=== PATIENT | male | born 1940 | race Caucasian/White ===

== ENCOUNTER → 2016-05-03 | Outpatient (CLI) | payer BC ==
[~2016-05-03] MED LIST: AMLO-110 PO; ASPEC81 PO; ASPI81TA28 PO; ATOR-24 PO; CALC-574 PO; CHOL1000 PO; CHOL2000 PO; DOXY100C2 PO; DVN/160 PO; GUAI1TAB68 PO; HYDR5SYP11 PO; LEVO1TAB34 PO; LORA10TA5 PO; LPT/20 PO; MISCTAB26 PO; NRV/10 PO; POTA-74 PO; POTA10CA28 PO; PRED10TA PO; VALS-58 PO; VNTHFA/IN INH
[2016-05-03 10:58] LABS: HEMATOCRIT 45.2 % (42-52); MEAN CELL VOLUME 89.3 fL (80-100); MEAN CORPUSCULAR HEMOGLOBIN 30.8 pg (25-34); MEAN CORPUSCULAR HGB CONC 34.5 g/dl (32-36); MEAN PLATELET VOLUME 12.2 fL (7.4-10.4); PLATELET COUNT 250 K/uL (130-400); RED BLOOD COUNT 5.06 M/uL (4.7-6.1); WHITE BLOOD COUNT 5.96 K/uL (4.8-10.8)
[2016-05-03 11:21] LABS: ALT/SGPT 53 U/L (12-78); AST/SGOT 40 U/L (15-37); BLOOD UREA NITROGEN 14 mg/dl (7-18); CALCIUM 9.2 mg/dl (8.5-10.1); CARBON DIOXIDE 25 mmol/L (21-32); CHLORIDE 110 mmol/L (98-107); CHOLESTEROL 127 mg/dl (0-200); GLUCOSE 106 mg/dl (70-99); SODIUM 144 mmol/L (136-145); URIC ACID 6.1 mg/dl (2.6-7.2)
[2016-05-03 11:26] LABS: ALB/GLOB RATIO 0.9 (0.9-2); ALKALINE PHOSPHATASE 101 U/L (45-117); CHOLESTEROL/HDL RATIO 2.5; HDL CHOLESTEROL 50 mg/dl; LDL CHOLESTEROL CALCULATED 44 mg/dl; TRIGLYCERIDES 163 mg/dl (0-150); VERY LOW DENSITY LIPOPROT CALC 33 mg/dl
[2016-05-03 11:41] LABS: ESTIMATED AVERAGE GLUCOSE 120 mg/dl; HA1C FLAG Normal (Normal)
== END | disposition home or self-care (01) ==
LOC: C.LABBC 07:21
PROVIDERS: ATTEND Internal Medicine
DX: R73.9 Hyperglycemia, unspecified (principal); I10 Essential (primary) hypertension; E78.5 Hyperlipidemia, unspecified

== ENCOUNTER → 2016-07-11 | Outpatient (CLI) | payer BC ==
--- NOTE | 2016-07-11 11:26 | DIAGNOSTIC IMAGING REPORT ---
RIGHT HIP INJECTION UNDER FLUOROSCOPIC GUIDANCE CLINICAL HISTORY: Degenerative joint disease. Steroid injection. PROCEDURE: The risks, benefits, and alternatives to the procedure were discussed with the patient. Written informed consent was obtained. The patient was placed supine on the fluoroscopy table, and a right hip injection was performed under fluoroscopic guidance. The area was prepped and draped in the usual sterile fashion. The skin and soft tissues anesthetized with local 1% lidocaine. The right hip joint was accessed utilizing a 22-gauge needle, and intra-articular positioning was confirmed by injecting a small volume of Optiray 300. Once intra-articular positioning was confirmed, the prescribed dosage of 2 cc of betamethasone and 5 cc of bupivacaine was injected into the joint space. The procedure was well tolerated and without immediate complication. The patient left the department in satisfactory condition. FLUOROSCOPY TIME: 14 seconds. IMPRESSION: Successful steroid injection of the right hip under fluoroscopic guidance. Electronically signed by: Joon Borges M.D. 07/11/2016 11:25 AM Dictated Date/Time: 07/11/2016 11:24 AM
== END | disposition home or self-care (01) ==
LOC: C.RADBC 09:38
PROVIDERS: ATTEND Orthopaedic Surgery
DX: M16.11 Unilateral primary osteoarthritis, right hip (principal)

== ENCOUNTER 2016-08-22 02:41 | Emergency (ER) | payer BC ==
[~2016-08-22] VITALS: Ht 167.6 cm; Wt 92.2 kg
[~2016-08-22 02:41] MED LIST changes: -ASPI81TA28 PO; -CALC-574 PO; -CHOL1000 PO; -CHOL2000 PO; -DOXY100C2 PO; -DVN/160 PO; -GUAI1TAB68 PO; -HYDR5SYP11 PO; -LEVO1TAB34 PO; -LORA10TA5 PO; -LPT/20 PO; -MISCTAB26 PO; -NRV/10 PO; -POTA-74 PO; -VALS-58 PO; -VNTHFA/IN INH
[2016-08-22 02:46] VITALS: TEMP 36.4; Ht 167.6 cm; Wt 92.2 kg
[2016-08-22] MEDS ORDERED: ALBUT/IPRATROP 3MG/0.5MG NEB 3 ML VIAL INH STA (03:00)
[2016-08-22 03:30] LABS: BASO % 0.1 %; BASO ABS # 0.01 K/uL (0-0.2); COMPLETE YES; HEMATOCRIT 43.6 % (42-52); IG% 0.2 %; LYMPH % 7.9 %; LYMPH ABS # 0.81 K/uL (1.2-3.4); MEAN CELL VOLUME 87.4 fL (80-100); MEAN CORPUSCULAR HEMOGLOBIN 30.3 pg (25-34); MEAN CORPUSCULAR HGB CONC 34.6 g/dl (32-36); MEAN PLATELET VOLUME 11.4 fL (7.4-10.4); MONO % 7.4 %; NEUT % 84.4 %; PLATELET COUNT 196 K/uL (130-400); RED BLOOD COUNT 4.99 M/uL (4.7-6.1); WHITE BLOOD COUNT 10.19 K/uL (4.8-10.8)
[2016-08-22] MEDS ORDERED: SODIUM CHLORIDE 0.9% 500ML 500 ML IV STA (03:45)
[2016-08-22 03:51] VITALS: O2SAT 95
[2016-08-22] MEDS ORDERED: OPTIRAY 320 IV PRN (04:00)
[2016-08-22 04:20] LABS: BUN/CREATININE RATIO 23.3 (10-20); CALCIUM 9.1 mg/dl (8.5-10.1); CREATININE 0.92 mg/dl (0.60-1.40)
[2016-08-22] MEDS ORDERED: LPT/20 PO (04:26)
[2016-08-22] MEDS ORDERED: POTA-74 PO (04:26)
[2016-08-22] MEDS ORDERED: NRV/10 PO (04:26)
[2016-08-22] MEDS ORDERED: VALS-58 PO (04:26)
[2016-08-22] MEDS ORDERED: LORA10TA5 PO (04:27)
[2016-08-22] MEDS ORDERED: ASPI81TA28 PO (04:27)
[2016-08-22] MEDS ORDERED: CHOL2000 PO (04:29)
[2016-08-22] MEDS ORDERED: MISCTAB26 PO (04:29)
[2016-08-22] MEDS ORDERED: CALC-574 PO (04:29)
[2016-08-22] MEDS ORDERED: LIDOCAINE HCL 2% VISC SOLN 20 ML UDC MT STA (04:57)
--- NOTE | 2016-08-22 05:38 | EMERGENCY ROOM VISIT NOTE ---
History First contact with patient: 02:51 Chief Complaint: RESPIRATORY PROBLEMS Stated Complaint: HARD TO BREATHE History of Present Illness The patient is a 76 year old male who presents to the Emergency Room with complaints of cough and shortness of breath for the past few days that is progressively getting worse. Patient recently was on a trip to [place] and was on a cruise ship to [place] and flew back here. He saw his family care doctor yesterday and was placed on prednisone. symptoms have been getting worse so he presents to the ER for further evaluation and treatment. Patient denies chest pain, fevers, abdominal pain, leg pain, history of PE or DVT, history of heart disease, sore throat, congestion. He is tolerating by mouth fluids and food. Review of Systems See HPI for pertinent positives & negatives. A total of 10 systems reviewed and were otherwise negative. Past Medical/Surgical History HTN Social History Smoking Status: Former Smoker Drug Use: none Marital Status: Housing Status: lives with family Occupation Status: retired Current/Historical Medications Scheduled Amlodipine Besylate (Amlodipine Besylate), 10 MG PO DAILY Aspirin (Aspirin Ec), 81 MG PO DAILY Atorvastatin (Atorvastatin Calcium), 20 MG PO DAILY Calcium Carbonate-Cholecalcife (Calcium 600+D3 600-400 mg-Unit), 1 TAB PO DAILY Cholecalciferol (Vitamin D3), 1 CAP PO DAILY Loratadine (Claritin), 10 MG PO DAILY Misc Natural Products (Ginkgo Biloba), 1 TAB PO DAILY Potassium Chloride (Potassium Chloride Er), 10 MEQ PO BID Prednisone (Prednisone), PO UD Valsartan (Valsartan), 160 MG PO DAILY Allergies Coded Allergies: Levothyroxine (Unverified Allergy, Intermediate, HIVES, 08/22/16) states always became septic Physical Exam Vital Signs Date Time Temp Pulse Resp B/P Pulse Ox O2 Delivery O2 Flow Rate FiO2 08/22/16 05:17 87 18 140/78 94 Room Air 08/22/16 03:53 85 18 153/71 95 Room Air 08/22/16 03:51 95 Room Air 08/22/16 03:51 95 Room Air 08/22/16 03:24 Room Air 08/22/16 03:18 87 08/22/16 02:46 36.4 95 19 154/88 94 Room Air Physical Exam VITALS: Vitals are noted on the nurse's note and reviewed by myself. Vital signs stable. GENERAL: Pleasant male, in no acute distress, nondiaphoretic, well-developed well-nourished. SKIN: The skin was without rashes, erythema, edema, or bruising. There is no tenting of the skin. Capillary reflex less than 2 seconds. HEAD: Normocephalic atraumatic. EARS: External auditory canals clear, tympanic membranes pearly ventura without erythema or effusion bilaterally. EYES: Pupils equal round and reactive to light and accommodation. Conjunctivae without injection, sclerae without icterus. Extraocular movements intact. NOSE: Patent, turbinates without inflammation or discharge. MOUTH: Mucous membranes moist. Pharynx without erythema or exudate. Uvula midline. Airway patent. Tongue does not deviate. NECK: Supple without nuchal rigidity. No lymphadenopathy. No thyromegaly. Cervical spine is nontender. No JVD. HEART: Regular rate and rhythm LUNGS: Clear to auscultation bilaterally without wheezes, rales or rhonchi. No dullness to percussion. No retractions or accessory muscle use. ABDOMEN: Positive bowel sounds x 4. Normal tympanic percussion. Soft, nontender, without masses or organomegaly. Laura sign negative. No guarding or rebound tenderness. MUSCULOSKELETAL: No muscle atrophy, erythema, noted. Bilateral trace pitting edema up to the ankles NEURO: Patient was alert and oriented to person place and time. Normal sensation to light and sharp touch. No focal neurological deficits. Medical Decision & Procedures Laboratory Results 08/22/16 03:19 Red Blood Count 4.99, Mean Corpuscular Volume 87.4, Mean Corpuscular Hemoglobin 30.3, Mean Corpuscular Hemoglobin Concent 34.6, Mean Platelet Volume 11.4, Neutrophils (%) (Auto) 84.4, Lymphocytes (%) (Auto) 7.9, Monocytes (%) (Auto) 7.4, Eosinophils (%) (Auto) 0.0, Basophils (%) (Auto) 0.1, Neutrophils # (Auto) 8.60, Lymphocytes # (Auto) 0.81, Monocytes # (Auto) 0.75, Eosinophils # (Auto) 0.00, Basophils # (Auto) 0.01 08/22/16 03:19 Test 08/22/16 03:19 08/22/16 03:24 White Blood Count 10.19 K/uL (4.8-10.8) Red Blood Count 4.99 M/uL (4.7-6.1) Hemoglobin 15.1 g/dL (14.0-18.0) Hematocrit 43.6 % (42-52) Mean Corpuscular Volume 87.4 fL (80-100) Mean Corpuscular Hemoglobin 30.3 pg (25-34) Mean Corpuscular Hemoglobin Concent 34.6 g/dl (32-36) Platelet Count 196 K/uL (130-400) Mean Platelet Volume 11.4 fL (7.4-10.4) Neutrophils (%) (Auto) 84.4 % Lymphocytes (%) (Auto) 7.9 % Monocytes (%) (Auto) 7.4 % Eosinophils (%) (Auto) 0.0 % Basophils (%) (Auto) 0.1 % Neutrophils # (Auto) 8.60 K/uL (1.4-6.5) Lymphocytes # (Auto) 0.81 K/uL (1.2-3.4) Monocytes # (Auto) 0.75 K/uL (0.11-0.59) Eosinophils # (Auto) 0.00 K/uL (0-0.5) Basophils # (Auto) 0.01 K/uL (0-0.2) RDW Standard Deviation 43.7 fL (36.4-46.3) RDW Coefficient of Variation 13.7 % (11.5-14.5) Immature Granulocyte % (Auto) 0.2 % Immature Granulocyte # (Auto) 0.02 K/uL (0.00-0.02) Anion Gap 9.0 mmol/L (3-11) Est Creatinine Clear Calc Drug Dose 73.7 ml/min Estimated GFR () 94.0 Estimated GFR (Non- 81.1 BUN/Creatinine Ratio 23.3 (10-20) Calcium Level 9.1 mg/dl (8.5-10.1) Total Bilirubin 0.5 mg/dl (0.2-1) Direct Bilirubin 0.1 mg/dl (0-0.2) Aspartate Amino Transf (AST/SGOT) 25 U/L (15-37) Alanine Aminotransferase (ALT/SGPT) 34 U/L (12-78) Alkaline Phosphatase 91 U/L (45-117) Total Protein 7.3 gm/dl (6.4-8.2) Albumin 3.5 gm/dl (3.4-5.0) Bedside D-Dimer > 450 ng/mlFEU (0-450) Bedside Troponin I 0.000 ng/ml (0-0.045) Medications Administered Medications (Trade) Dose Ordered Sig/Jesse Route Start Time Stop Time Status Last Admin Dose Admin Albuterol/ Ipratropium 3 ml 3 ml NOW STAT INH 08/22/16 03:00 08/22/16 03:02 DC 08/22/16 03:47 3 ML Sodium Chloride (Nss 500ml) 500 ml @ 999 mls/hr Q31M STAT IV 08/22/16 03:45 08/22/16 04:15 DC 08/22/16 03:49 999 MLS/HR Lidocaine HCl (Viscous Lidocaine 2% Soln) 10 ml NOW STAT MT 08/22/16 04:57 08/22/16 04:58 DC 08/22/16 05:04 10 ML ED Course Prior records/ancillary studies reviewed. Triage Nursing notes reviewed. Additional history obtained from the family. The patient's history was concerning for respiratory difficulties. Differential diagnosis: Etiologies such as infections, reactive airway disease, pneumonia, pneumothorax , COPD, CHF, cardiac ischemia, pulmonary embolism, musculoskeletal, gastrointestinal, as well as others were entertained. Physical examination: As above. ER treatment provided: Duo neb, doxycycline On reassessment the patient felt better. Diagnostic interpretation by me: The electrocardiogram was normal sinus, occasional PVC, Q-wave in lead 3, T wave inversion in V3, rate of 85. EKG compared to prior EKG with no acute changes noted besides the PVCs. Impression normal sinus rhythm with occasional PVC and Q-wave in the inferior leads interpreted by myself The labs revealed elevated d-dimer. Negative troponin Imaging studies: Chest x-ray with no acute consolidation or pneumothorax interpreted by myself CTA CHEST: No PE. No aortic aneurysm or dissection. Atherosclerotic calcifications including coronary arteries. Patchy airspace disease in the left lower lobe may represent pneumonia. Small and borderline enlarged mediastinal and left hilar nodes. Some of the left hilar nodes with small calcification may be granulomatous Radiologist: Grant Calvin M.D. Study ready at 05:04 and initial results transmitted This appears to be consistent with pneumonia. Patient had no PE on CTA. He was started on antibiotics. He was advised to take medicines as directed and follow-up family care in a few days or here in the ER sooner for fevers, difficulty breathing, chest pains, worsening signs or symptoms or as needed. He was not hypoxic. No white count. He is well-appearing. I felt it was reasonable to discharge him home.. By the evaluation outlined above emergent etiologies such as CHF, cardiac ischemia, pulmonary embolism, reactive airway disease, pneumothorax, musculoskeletal, serious bacterial infections, as well as others were deemed relatively unlikely. The pt informed about the findings as listed above. All questions were answered and pleased with the treatment. Return instructions were outlined and the patient was discharged in stable condition. Outpatient prescription management: Doxycycline Referral: The patient was referred back to their primary care physician for follow-up in 2 to 3 days for a recheck of the current condition. case reviewed with my Attending Medical Decision As above Impression Primary Impression: Left lower lobe pneumonia Departure Information Dispostion Home / Self-Care Condition GOOD Referrals Travis Mcnulty D.O. (PCP) Patient Instructions My [facility] Additional Instructions Doxycycline 100mg: Take one pill twice daily for seven days for your infection. Take with food, but avoid dairy. Avoid prolonged sun exposure since this medication makes you temporarily more susceptible to sunburns. All antibiotics can cause diarrhea. If this occurs and you feel worse or it does not resolve in 1-2 days follow up with your doctor or return to the Emergency Department as this could be signs of serious underlying problems. Any medication can cause an allergic reaction, stop the pills immediately and return to the ER for rash, hives, breathing difficulties, or swelling. Albuterol Inhaler: Take 2 puffs four times daily for seven days, then as needed. Acetaminophen(Tylenol) may be used for fever or pain. Use 1000mg every six hours as needed. Avoid using more than 3000mg in a 24 hour period. AND/OR Ibuprofen(Motrin, Advil) may be used for fever or pain. Use 600mg every six hours as needed. Take with food. Avoid using more than 2400mg in a 24 hour period. Do not use 2400mg per day for more than three consecutive days without physician direction. Prolonged inappropriate use can lead to stomach upset or ulcers. Hycodan cough syrup: use one teaspoon every six hours only as needed for severe cough. It is best for use at night since it will cause sedation. This is a narcotic medication. Avoid alcohol, operating machinery or dangerous equipment, working on ladders or roofs, DRIVING, or situations where being under the influence may be dangerous. It is recommended to use an over-the- counter stool softener such as Colace, 100mg twice daily while taking this medication to avoid constipation. Controlling your fever with Tylenol and Ibuprofen as above will make you feel better. Rest and drink plenty of fluids. Avoid strenuous activity until your symptoms resolve and your breathing returns to normal. Continue current medications. Return to the ER for chest pain, difficulty breathing, persistent fevers, vomiting, worsening of your condition, or as needed. Follow-up with family care in 2-3 days. Problem Qualifiers Primary Impression: Left lower lobe pneumonia Pneumonia type: due to unspecified organism Qualified Codes: J18.1 - Lobar pneumonia, unspecified organism
[2016-08-22] MEDS ORDERED: DOXY100C2 PO (05:39)
[2016-08-22] MEDS ORDERED: HYDR5SYP11 PO (05:39)
[2016-08-22] MEDS ORDERED: DOXYCYCLINE HYCLATE 100 MG CAP PO ONE (05:45)
[2016-08-22] MEDS ORDERED: HYCODAN 60ML BOTTLE HOMEPACK PO ONE (05:45)
[2016-08-22] MEDS ORDERED: ALBUTEROL HFA 8 GM INHALER INH STA (05:48)
[2016-08-22 06:04] VITALS: BP 141/86; PULSE 92; O2SAT 94
--- NOTE | 2016-08-22 07:27 | DIAGNOSTIC IMAGING REPORT ---
CHEST ONE VIEW PORTABLE HISTORY: Atypical CHEST PAIN COMPARISON: Chest 12/30/2014. FINDINGS: The lungs are clear. Cardiac silhouette is normal in size. No pleural effusions. No pneumothorax. IMPRESSION: No acute process. Electronically signed by: Asaf Eason M.D. 08/22/2016 7:26 AM Dictated Date/Time: 08/22/2016 7:25 AM
--- NOTE | 2016-08-22 07:53 | DIAGNOSTIC IMAGING REPORT ---
CHEST CTA for PULMONARY ARTERIES CT DOSE: 518.65 mGy.cm HISTORY: Short of breath. Cough. Elevated d-dimer. Recent travel. TECHNIQUE: Multiaxial CT images of the chest were performed following the intravenous administration of contrast to evaluate the pulmonary arteries. Maximal intensity projection images were also obtained. COMPARISON STUDY: Chest 08/22/2016. FINDINGS: No evidence for an aortic dissection. No evidence for pulmonary embolus. No pleural or pericardial effusions. A few calcified left hilar lymph nodes. No mediastinal or hilar lymphadenopathy. Small hiatus hernia. The liver, spleen, and adrenal glands are unremarkable. No fractures within the visualized osseous structures. The central airways are patent. No pneumothorax. Patchy groundglass airspace opacities within the left lower lobe. IMPRESSION: 1. No evidence for pulmonary embolus. 2. Patchy groundglass airspace opacities within the left lower lobe consistent with a pneumonia. Recommend follow-up to ensure resolution 3. Small hiatus hernia. Electronically signed by: Asaf Eason M.D. 08/22/2016 7:51 AM Dictated Date/Time: 08/22/2016 7:45 AM
[2016-08-23] MEDS ORDERED: DVN/160 PO (19:26)
[2016-08-23] MEDS ORDERED: VNTHFA/IN INH (19:26)
[2016-08-23] MEDS ORDERED: CHOL1000 PO (20:29)
[2016-08-25] MEDS ORDERED: LEVO1TAB34 PO ×2 (12:05→12:16)
[2016-08-25] MEDS ORDERED: GUAI1TAB68 PO (12:05)
== END 2016-08-22 06:04 | disposition home or self-care (01) ==
LOC: C.EDB 02:42 → C.EDA 06:04
DX: J18.1 Lobar pneumonia, unspecified organism (principal); Z87.891 Personal history of nicotine dependence; Z79.899 Other long term (current) drug therapy; Z79.52 Long term (current) use of systemic steroids

== ENCOUNTER 2016-08-23 18:03 | Inpatient (IN) | payer BC, OTHER ==
[~2016-08-23] VITALS: Ht 167.6 cm; Wt 89.1 kg
[~2016-08-23 18:03] MED LIST changes: -AMLO-110 PO; -ASPEC81 PO; +ASPI81TA28 PO; -ATOR-24 PO; +CALC-574 PO; +CHOL2000 PO; +DOXY100C2 PO; +HYDR5SYP11 PO; +LORA10TA5 PO; +LPT/20 PO; +MISCTAB26 PO; +NRV/10 PO; +POTA-74 PO; -POTA10CA28 PO; +VALS-58 PO
[2016-08-23 18:55] LABS: BASO % 0.2 %; BASO ABS # 0.02 K/uL (0-0.2); COMPLETE YES; EOS % 1.1 %; HEMATOCRIT 45.5 % (42-52); IG% 0.3 %; LYMPH % 8.6 %; LYMPH ABS # 0.85 K/uL (1.2-3.4); MEAN CELL VOLUME 88.3 fL (80-100); MEAN CORPUSCULAR HEMOGLOBIN 29.9 pg (25-34); MEAN CORPUSCULAR HGB CONC 33.8 g/dl (32-36); MEAN PLATELET VOLUME 11.6 fL (7.4-10.4); MONO % 4.9 %; NEUT % 84.9 %; PLATELET COUNT 218 K/uL (130-400); RED BLOOD COUNT 5.15 M/uL (4.7-6.1); WHITE BLOOD COUNT 9.88 K/uL (4.8-10.8)
--- NOTE | 2016-08-23 18:55 | DIAGNOSTIC IMAGING REPORT ---
CHEST ONE VIEW PORTABLE HISTORY: Sepsis COMPARISON: Chest CTA 08/22/2016. FINDINGS: Patchy densities within the left lung base persist. There are linear densities within the right lung base suggesting atelectasis. No evidence for pulmonary edema. The heart is mildly enlarged. This remains unchanged. No pneumothorax. IMPRESSION: No change in the left lower lobe hazy density suggesting a pneumonia. One month chest x-ray follow-up can be performed to ensure resolution. Electronically signed by: Asaf Eason M.D. 08/23/2016 6:54 PM Dictated Date/Time: 08/23/2016 6:53 PM
[2016-08-23 19:05] LABS: PARTIAL THROMBOPLASTIN RATIO 0.9; PROTHROMBIN TIME (PATIENT) 10.5 SECONDS (9.0-12.0)
[2016-08-23 19:21] LABS: ALT/SGPT 34 U/L (12-78); AST/SGOT 30 U/L (15-37); BLOOD UREA NITROGEN 17 mg/dl (7-18); BUN/CREATININE RATIO 15.8 (10-20); CALCIUM 8.5 mg/dl (8.5-10.1); CARBON DIOXIDE 25 mmol/L (21-32); CHLORIDE 106 mmol/L (98-107); GLUCOSE 150 mg/dl (70-99); POTASSIUM 3.5 mmol/L (3.5-5.1); SODIUM 140 mmol/L (136-145)
[2016-08-23 19:25] LABS: ALKALINE PHOSPHATASE 89 U/L (45-117)
[2016-08-23] MEDS ORDERED: DVN/160 PO (19:26)
[2016-08-23] MEDS ORDERED: VNTHFA/IN INH (19:26)
[2016-08-23] MEDS ORDERED: CEFTRIAXONE SOD INJ 1 GM ADDVIAL IV STA (19:38)
--- NOTE | 2016-08-23 19:51 | EMERGENCY ROOM VISIT NOTE ---
History Report prepared by [employer]cci: Rhona Britton Under the Supervision of: Dr. Theo Marie M.D. First contact with patient: 18:12 Chief Complaint: RESPIRATORY PROBLEMS Stated Complaint: BREATHING PROBLEMS HERE YESTERDAY Nursing Triage Summary: Pt was seen here yesterday for pneumonia and was sent home. Pt states "I can't breath, lightheaded, nauseous, cough." Pt was recently out of the country. History of Present Illness The patient is a 76 year old male who presents to the Emergency Room with complaints of persistent SOB starting this morning. He was in the ED yesterday for SOB. He was diagnosed with pneumonia and sent home with antibiotics. He has taken 3 doses so far. He was feeling well when he left. He started having SOB again today along with cough, nausea, lightheadedness, and dry mouth. His cough is mostly non productive, but he did cough up some sputum which was darker than before. He denies any rash, fever, or urinary symptoms. He denies any pain or swelling in the legs. He has a history of hypertension and low potassium. He takes potassium supplements. He was recently on a cruise to [place], [place] [facility], and [facility]. He reports there were many people coughing on the ship. Source of History: patient Onset: this morning Position: other (global) Quality: other (SOB) Timing: other (persistent) Associated Symptoms: + chest pain, + cough, + nausea, No fevers, No rash, No urinary symptoms Note: Pt reports lightheadedness and dry mouth. Pt denies pain or swelling in the legs. Review of Systems See HPI for pertinent positives & negatives. A total of 10 systems reviewed and were otherwise negative. Past Medical & Surgical Medical Problems: (1) Hypertension (2) Kidney stones Family History Cancer Parkinson's disease Social History Smoking Status: Never Smoker Alcohol Use: occasionally Drug Use: none Marital Status: Housing Status: lives with significant other Occupation Status: retired Current/Historical Medications Scheduled Albuterol Hfa (Ventolin Hfa), 2 PUFFS INH QID Amlodipine Besylate (Amlodipine Besylate), 10 MG PO DAILY Aspirin (Aspirin Ec), 81 MG PO DAILY Atorvastatin (Atorvastatin Calcium), 20 MG PO DAILY Calcium Carbonate-Cholecalcife (Calcium 600+D3 600-400 mg-Unit), 1 TAB PO DAILY Cholecalciferol (Vitamin D3), 1 CAP PO DAILY Doxycycline Hyclate (Vibramycin), 100 MG PO BID Loratadine (Claritin), 10 MG PO DAILY Misc Natural Products (Ginkgo Biloba), 1 TAB PO DAILY Potassium Chloride (Potassium Chloride Er), 10 MEQ PO BID Prednisone (Prednisone), PO UD Valsartan (Diovan), 160 MG PO DAILY Scheduled PRN Hydrocodone W/ Homatropine (Hycodan 5/1.5MG 5 Ml), 5-10 ML PO Q4H PRN for Cough Allergies Coded Allergies: Levothyroxine (Unverified Allergy, Intermediate, HIVES, 08/22/16) states always became septic Physical Exam Vital Signs Date Time Temp Pulse Resp B/P Pulse Ox O2 Delivery O2 Flow Rate FiO2 08/23/16 19:42 81 126/72 92 Room Air 08/23/16 19:38 95 Room Air 08/23/16 18:11 95 Room Air 08/23/16 18:08 36.5 88 18 149/84 95 Room Air Physical Exam Constitutional: Vital signs reviewed. Eyes: Pupils are equal round reactive to light. Conjunctiva are noninjected. ENT: Pharynx is clear without erythema or exudate. Mucous membranes are moist. Neck supple without meningeal signs. Respiratory: Clear to auscultation bilaterally. Breath sounds are equal bilaterally. Cardiovascular: Regular rate and rhythm. No rubs or gallops. GI: Soft, nondistended and nontender. Bowel sounds are present. Musculoskeletal: No peripheral edema. No lower extremity tenderness. Integumentary: No cyanosis. Neurological: The patient is awake and alert. No focal deficits. Psychiatric: Normal affect. Medical Decision & Procedures ER Provider Diagnostic Interpretation: X-ray results as stated below per interpretation by me and the radiologist: CHEST ONE VIEW PORTABLE HISTORY: Sepsis COMPARISON: Chest CTA 08/22/2016. FINDINGS: Patchy densities within the left lung base persist. There are linear densities within the right lung base suggesting atelectasis. No evidence for pulmonary edema. The heart is mildly enlarged. This remains unchanged. No pneumothorax. IMPRESSION: No change in the left lower lobe hazy density suggesting a pneumonia. One month chest x-ray follow-up can be performed to ensure resolution. Electronically signed by: Asaf Eason M.D. 08/23/2016 6:54 PM Dictated Date/Time: 08/23/2016 6:53 PM Laboratory Results 08/23/16 18:30 Red Blood Count 5.15, Mean Corpuscular Volume 88.3, Mean Corpuscular Hemoglobin 29.9, Mean Corpuscular Hemoglobin Concent 33.8, Mean Platelet Volume 11.6, Neutrophils (%) (Auto) 84.9, Lymphocytes (%) (Auto) 8.6, Monocytes (%) (Auto) 4.9, Eosinophils (%) (Auto) 1.1, Basophils (%) (Auto) 0.2, Neutrophils # (Auto) 8.39, Lymphocytes # (Auto) 0.85, Monocytes # (Auto) 0.48, Eosinophils # (Auto) 0.11, Basophils # (Auto) 0.02 08/23/16 18:30 Test 08/23/16 18:25 08/23/16 18:30 08/23/16 18:45 White Blood Count 9.88 K/uL (4.8-10.8) Red Blood Count 5.15 M/uL (4.7-6.1) Hemoglobin 15.4 g/dL (14.0-18.0) Hematocrit 45.5 % (42-52) Mean Corpuscular Volume 88.3 fL (80-100) Mean Corpuscular Hemoglobin 29.9 pg (25-34) Mean Corpuscular Hemoglobin Concent 33.8 g/dl (32-36) Platelet Count 218 K/uL (130-400) Mean Platelet Volume 11.6 fL (7.4-10.4) Neutrophils (%) (Auto) 84.9 % Lymphocytes (%) (Auto) 8.6 % Monocytes (%) (Auto) 4.9 % Eosinophils (%) (Auto) 1.1 % Basophils (%) (Auto) 0.2 % Neutrophils # (Auto) 8.39 K/uL (1.4-6.5) Lymphocytes # (Auto) 0.85 K/uL (1.2-3.4) Monocytes # (Auto) 0.48 K/uL (0.11-0.59) Eosinophils # (Auto) 0.11 K/uL (0-0.5) Basophils # (Auto) 0.02 K/uL (0-0.2) RDW Standard Deviation 45.7 fL (36.4-46.3) RDW Coefficient of Variation 14.1 % (11.5-14.5) Immature Granulocyte % (Auto) 0.3 % Immature Granulocyte # (Auto) 0.03 K/uL (0.00-0.02) Prothrombin Time 10.5 SECONDS (9.0-12.0) Prothromb Time International Ratio 1.0 (0.9-1.1) Activated Partial Thromboplast Time 23.0 SECONDS (21.0-31.0) Partial Thromboplastin Ratio 0.9 Anion Gap 9.0 mmol/L (3-11) Est Creatinine Clear Calc Drug Dose 61.9 ml/min Estimated GFR () 75.7 Estimated GFR (Non- 65.3 BUN/Creatinine Ratio 15.8 (10-20) Calcium Level 8.5 mg/dl (8.5-10.1) Total Bilirubin 0.8 mg/dl (0.2-1) Aspartate Amino Transf (AST/SGOT) 30 U/L (15-37) Alanine Aminotransferase (ALT/SGPT) 34 U/L (12-78) Alkaline Phosphatase 89 U/L (45-117) Troponin I < 0.015 ng/ml (0-0.045) Total Protein 7.4 gm/dl (6.4-8.2) Albumin 3.7 gm/dl (3.4-5.0) Globulin 3.7 gm/dl (2.5-4.0) Albumin/Globulin Ratio 1.0 (0.9-2) Bedside Lactic Acid Venous 1.78 mmol/L (0.90-1.70) Laboratory results as reviewed by me. ECG Indication: SOB/dyspnea Rate (beats per minute): 81 Rhythm: normal sinus Findings: no ectopy, other (ST and T wave changes in the anterior and inferior leads, no ST elevations) Comparison ECG Date: 22-Aug-2016 Change: no significant change Change: Similar findings yesterday as well as 26-Jun-2010. ED Course 1814: The patient was evaluated in room B10. A complete history and physical exam was performed. 1930: I reevaluated the patient. He mentions that he came here because he felt like something was sitting on his chest and he was unable to breathe. I discussed the results and treatment plan with him. He verbalized understanding and agreement. He will be evaluated for further management. 1937: Rocephin Inj 1 gm IV. 1938: I spoke with KEYONA Mcneal hospitalist service. We discussed the patient and his results. The patient will be further evaluated by her. Medical Decision This is a 76-year-old male who presents with shortness of breath. Differential diagnosis includes sepsis, pneumonia, unstable angina, PR, pulmonary embolism. I did perform a limited focused review of portions of the patient's old chart on the electronic medical record. The patient was here yesterday for difficulty breathing and diagnosed with left lower lobe pneumonia. He had a negative CTA for PE. He was discharged home with doxycycline and Hycodan. I did evaluate the patient as noted above. IV access was established. The patient was placed on a continuous air sampling and monitoring. I did order and personally review the patient's 12-lead EKG and chest x-ray as described above. He has a persistent left lower lobe pneumonia. Blood cultures were obtained. I did order and review the patient's blood work as noted in the electronic medical record. He has a left shift and an elevated lactic acid. PCR influenza test is pending. I did reassess the patient. He states the main reason he came in today was because he was feeling really short of breath and felt like something was sitting on his chest earlier this afternoon. He no longer has the sensation. He denies any prior history of heart attack but states that when he was 22 he had an injury to his heart and has had an abnormal EKG since. Given his worsening symptoms he will hospitalized for further evaluation, repeat cardiac enzymes and IV antibiotics. I did treat the patient with ceftriaxone IV. I did discuss the case with the hospitalist and manager case. Consults Time Called: 1936 Consulting Physician: KEYONA Mcneal hospitalist Returned Call: 1938 I spoke with her. We discussed the patient and his results. The patient will be further evaluated by her. Impression Primary Impression: Pneumonia involving left lung Additional Impression: Precordial chest pain Scribe Attestation The scribe's documentation has been prepared under my direct and personally reviewed by me in its entirety. I confirm that the note above accurately reflects all work, treatment, procedures, and medical decision making performed by me. Departure Information Dispostion Being Evaluated By Hospitalist Referrals Travis Mcnulty D.O. (PCP) Patient Instructions My [facility] Problem Qualifiers Primary Impression: Pneumonia involving left lung Pneumonia type: due to unspecified organism Lung location: lower lobe of lung Qualified Codes: J18.1 - Lobar pneumonia, unspecified organism
[2016-08-23] MEDS ORDERED: ONDANSETRON INJ 2 MG/ML 2 ML VIAL IV PRN (20:15)
[2016-08-23] MEDS ORDERED: NITROGLYCERIN 0.4 MG SL PER TAB CHARGE SL PRN (20:15)
[2016-08-23] MEDS ORDERED: ACETAMINOPHEN 325 MG TAB PO PRN (20:15)
[2016-08-23] MEDS ORDERED: CHOL1000 PO (20:29)
[2016-08-23] MEDS ORDERED: ALBUT/IPRATROP 3MG/0.5MG NEB 3 ML VIAL INH PRN (20:30)
--- NOTE | 2016-08-23 20:49 | History and Physical ---
History & Physical Date & Time of Service: August 23, 2016 at 20:36 Chief Complaint: Shortness of Breath, Chest Tightness Primary Care Physician: Travis Mcnulty D.O. History of Present Illness 76 year old male who presents to the ER with shortness of breath and chest tightness. Patient reports he was away on a cruise vacation for over 3 weeks and returned home last week. He reports that towards the end of his vacation he started to develop a mild non productive cough. He reports other people in his group as well as his were sick as well with similar symptoms. His symptoms progressively got worse and he was seen by his PCP on 08/20 and given a prednisone taper. He continued to feel poorly and was seen in the ER yesterday and diagnosed with pneumonia. CT was also obtained that was negative for pulmonary embolism. He was discharged on albuterol inhaler, doxycycline, and Hycodan cough syrup. He reports he initially felt better however this afternoon the chest tightness and heaviness returned. He also felt short of breath, diaphoretic, and nauseous. These episodes occurred twice with the more severe one occurring second. He notes taking the Hycodan right before these episodes occurred. The symptoms also occurred at rest and resolved on their own. He denies fever and chills. Cough remains mostly non productive. He denies abdominal pain, vomiting, or diarrhea. No urinary symptoms. In the ER, vitals are stable. Patient is saturating well on room air. Initial troponin is negative and EKG does not show any acute ST changes. He was given a dose of Rocephin. Past Medical/Surgical History Medical Problems: (1) Allergic rhinitis Status: Chronic (2) Dyslipidemia Status: Chronic (3) GERD (gastroesophageal reflux disease) Status: Chronic (4) HTN (hypertension) Status: Chronic (5) Kidney stones Status: Resolved Family History Parkinson's disease FATHER Social History Smoking Status: Never Smoker Alcohol Use: occasionally Marital Status: Housing status: lives with family Immunizations History of Influenza Vaccine: Yes Influenza Vaccine Date: Dec 28, 2015 History of Tetanus Vaccine?: Yes Tetanus Immunization Date: Dec 29, 2013 History of Pneumococcal: Yes Pneumococcal Date: Nov 08, 2015 Multi-Drug Resistant Organisms History of MDRO: No Allergies Coded Allergies: Levothyroxine (Unverified Allergy, Intermediate, HIVES, 08/22/16) states always became septic Home Medications Scheduled Albuterol Hfa (Ventolin Hfa), 2 PUFFS INH QID Amlodipine Besylate (Amlodipine Besylate), 10 MG PO DAILY Aspirin (Aspirin Ec), 81 MG PO DAILY Atorvastatin (Atorvastatin Calcium), 20 MG PO DAILY Calcium Carbonate-Cholecalcife (Calcium 600+D3 600-400 mg-Unit), 1 TAB PO DAILY Cholecalciferol (Vitamin D3), 1 TAB PO DAILY Doxycycline Hyclate (Vibramycin), 100 MG PO BID Loratadine (Claritin), 10 MG PO DAILY Misc Natural Products (Ginkgo Biloba), 1 TAB PO DAILY Potassium Chloride (Potassium Chloride Er), 10 MEQ PO BID Prednisone (Prednisone), PO UD Valsartan (Diovan), 160 MG PO HS Scheduled PRN Hydrocodone W/ Homatropine (Hycodan 5/1.5MG 5 Ml), 5-10 ML PO Q4H PRN for Cough Review of Systems ROS per HPI, all other systems reviewed and negative Physical Exam Vital Signs Date Time Temp Pulse Resp B/P Pulse Ox O2 Delivery O2 Flow Rate FiO2 08/23/16 20:31 77 20 154/81 92 Room Air 08/23/16 19:42 81 126/72 92 Room Air 08/23/16 19:38 95 Room Air 08/23/16 18:11 95 Room Air 08/23/16 18:08 36.5 88 18 149/84 95 Room Air General Appearance: no apparent distress Head: normocephalic Eyes: normal inspection ENT: hearing grossly normal Neck: supple, no JVD Respiratory/Chest: no respiratory distress, + rales (left lung base, right middle and lower lung castillo) Cardiovascular: regular rate, rhythm, no edema, normal peripheral pulses Abdomen/GI: normal bowel sounds, non tender, soft Extremities/Musculoskelatal: normal inspection, no calf tenderness Neurologic/Psych: no motor/sensory deficits, alert, normal mood/affect, oriented x 3 Skin: normal color, warm/dry Diagnostics Laboratory Results Results Past 24 Hours Test 08/23/16 18:25 08/23/16 18:30 08/23/16 18:45 Range/Units White Blood Count 9.88 4.8-10.8 K/uL Red Blood Count 5.15 4.7-6.1 M/uL Hemoglobin 15.4 14.0-18.0 g/dL Hematocrit 45.5 42-52 % Mean Corpuscular Volume 88.3 80-100 fL Mean Corpuscular Hemoglobin 29.9 25-34 pg Mean Corpuscular Hemoglobin Concent 33.8 32-36 g/dl Platelet Count 218 130-400 K/uL Mean Platelet Volume 11.6 7.4-10.4 fL Neutrophils (%) (Auto) 84.9 % Lymphocytes (%) (Auto) 8.6 % Monocytes (%) (Auto) 4.9 % Eosinophils (%) (Auto) 1.1 % Basophils (%) (Auto) 0.2 % Neutrophils # (Auto) 8.39 1.4-6.5 K/uL Lymphocytes # (Auto) 0.85 1.2-3.4 K/uL Monocytes # (Auto) 0.48 0.11-0.59 K/uL Eosinophils # (Auto) 0.11 0-0.5 K/uL Basophils # (Auto) 0.02 0-0.2 K/uL RDW Standard Deviation 45.7 36.4-46.3 fL RDW Coefficient of Variation 14.1 11.5-14.5 % Immature Granulocyte % (Auto) 0.3 % Immature Granulocyte # (Auto) 0.03 0.00-0.02 K/uL Prothrombin Time 10.5 9.0-12.0 SECONDS Prothromb Time International Ratio 1.0 0.9-1.1 Activated Partial Thromboplast Time 23.0 21.0-31.0 SECONDS Partial Thromboplastin Ratio 0.9 Sodium Level 140 136-145 mmol/L Potassium Level 3.5 3.5-5.1 mmol/L Chloride Level 106 98-107 mmol/L Carbon Dioxide Level 25 21-32 mmol/L Anion Gap 9.0 3-11 mmol/L Blood Urea Nitrogen 17 7-18 mg/dl Creatinine 1.10 0.60-1.40 mg/dl Est Creatinine Clear Calc Drug Dose 61.9 ml/min Estimated GFR () 75.7 Estimated GFR (Non- 65.3 BUN/Creatinine Ratio 15.8 10-20 Random Glucose 150 70-99 mg/dl Calcium Level 8.5 8.5-10.1 mg/dl Total Bilirubin 0.8 0.2-1 mg/dl Aspartate Amino Transf (AST/SGOT) 30 15-37 U/L Alanine Aminotransferase (ALT/SGPT) 34 12-78 U/L Alkaline Phosphatase 89 45-117 U/L Troponin I < 0.015 0-0.045 ng/ml Total Protein 7.4 6.4-8.2 gm/dl Albumin 3.7 3.4-5.0 gm/dl Globulin 3.7 2.5-4.0 gm/dl Albumin/Globulin Ratio 1.0 0.9-2 Bedside Lactic Acid Venous 1.78 0.90-1.70 mmol/L Microbiology Results 08/23/16 Blood Culture, Received Pending 08/23/16 Blood Culture, Received Pending Diagnostic Radiology CXR IMPRESSION: No change in the left lower lobe hazy density suggesting a pneumonia. One month chest x-ray follow-up can be performed to ensure resolution. Impression Assessment and Plan CHEST PAIN - admit to tele - patient presenting with chest tightness / heaviness, shortness of breath, and diaphoresis occurring at rest and after taking Hycodan cough syrup; was in the ER yesterday and diagnosed with pneumonia - symptoms atypical for ACS; risk factors: HTN, HLD - initial troponin negative, EKG unchanged from prior - stress echo 2010 negative for ischemia - suspect symptoms are due to pneumonia - continue to cycle cardiac enzymes, check resting echo; if negative, consider outpatient stress test - ASA, statin CAP - diagnosed yesterday and was placed on doxycycline - was placed on Prednisone taper by PCP on 08/19, will continue with to complete course - s/p Rocephin in the ER today, will continue with and add azithromycin - add Mucinex, flutter valve, PRN nebs - no signs of sepsis, saturating well on room air - noted patient was recently on a cruise and other people were sick with similar symptoms - check MRSA nasal swab, sputum culture, urine legionella HTN - BP controlled, continue amlodipine and valsartan HLD - continue statin GERD - continue PPI DVT PROPHYLAXIS - SQ Lovenox DISPO - The patient will be placed as observation status for now until further work up is complete. Agree with above h and [id number] presents who was diagnosed with pneumonia and started on doxycycline yesterday comes back with chest tightness, sob and not feeling well. Currently afebrile and hemodynamically stable. No nausea or abdominal pain. p/e Ge not in distress Cvs s1 and s2 heard no murmurs Rs cta b/l no added sounds Abd benign Brand Communications Manager non focal Ext no edema a/p chest tightness sob mostly from pneumonia will f/u serial CE and echo CAP started on Rocephin and azithromycin will monitor VTE Prophylaxis VTE Risk Assessment Done? Y/N: Yes Risk Level: Moderate
[2016-08-23] MEDS ORDERED: IV FLUIDS COMPLETED PRN (21:00)
[2016-08-23 21:06] LABS: INFLUENZA A PCR Neg for Influ A (NEG); INFLUENZA B PCR Neg for Influ B (NEG)
[2016-08-23] MEDS ORDERED: POTASSIUM CHLORIDE 10 MEQ TABCR PO SCH (22:00)
[2016-08-23 22:15] VITALS: BP 145/78; PULSE 84; TEMP 36.6; O2SAT 92; Ht 167.6 cm; Wt 89.1 kg
[2016-08-23] MEDS: GUAIFENESIN 600 MG TABCR PO SCH (22:34)
[2016-08-23] MEDS: POTASSIUM CHLORIDE 10 MEQ TABCR PO SCH (22:34)
[2016-08-23] MEDS: VALSARTAN 80 MG TAB PO SCH (22:34)
[2016-08-23] MEDS: AZITHROMYCIN IV 500 MG in DEXTROSE 5% 250ML 250 ML IV SCH (22:35)
[2016-08-23 23:49] VITALS: BP 148/74; PULSE 87; TEMP 36.9; O2SAT 92
[2016-08-23 23:59] VITALS: O2SAT 92
[2016-08-24] VITALS (10 sets, daily range): BP systolic 136–158; BP diastolic 61–83; PULSE 69–93; TEMP 36.5–36.9; O2SAT 91–94
[2016-08-24] MEDS ORDERED: NURSING VERBAL MED ORDER ONE ×3 (00:15→09:30)
[2016-08-24] MEDS ORDERED: RANITIDINE HCL 150 MG TAB PO PRN (00:30)
[2016-08-24 07:08] LABS: HEMATOCRIT 42.1 % (42-52); MEAN CELL VOLUME 87.9 fL (80-100); MEAN CORPUSCULAR HEMOGLOBIN 30.3 pg (25-34); MEAN CORPUSCULAR HGB CONC 34.4 g/dl (32-36); MEAN PLATELET VOLUME 11.2 fL (7.4-10.4); PLATELET COUNT 193 K/uL (130-400); RED BLOOD COUNT 4.79 M/uL (4.7-6.1); WHITE BLOOD COUNT 7.06 K/uL (4.8-10.8)
[2016-08-24 07:38] LABS: BLOOD UREA NITROGEN 14 mg/dl (7-18); BUN/CREATININE RATIO 16.3 (10-20); CALCIUM 8.4 mg/dl (8.5-10.1); CARBON DIOXIDE 27 mmol/L (21-32); CHLORIDE 110 mmol/L (98-107); CREATININE 0.86 mg/dl (0.60-1.40); GLUCOSE 89 mg/dl (70-99); POTASSIUM 3.8 mmol/L (3.5-5.1); SODIUM 144 mmol/L (136-145)
[2016-08-24] MEDS: ENOXAPARIN 40 MG/0.4 ML SYR SC SCH (08:00)
[2016-08-24] MEDS: POTASSIUM CHLORIDE 10 MEQ TABCR PO SCH ×2 (08:24→16:39)
[2016-08-24] MEDS: ASPIRIN 81 MG ECTAB PO SCH (08:25)
[2016-08-24] MEDS: ATORVASTATIN 20 MG TAB PO SCH (08:25)
[2016-08-24] MEDS: LORATADINE 10 MG TAB PO SCH (08:25)
[2016-08-24] MEDS: GUAIFENESIN 600 MG TABCR PO SCH ×2 (08:26→20:44)
[2016-08-24] MEDS: AMLODIPINE BESYLATE 5 MG TAB PO SCH (08:27)
[2016-08-24] MEDS: RANITIDINE HCL 150 MG TAB PO SCH ×2 (08:28→20:44)
[2016-08-24] MEDS ORDERED: CHOLECALCIFEROL 1000 INTER.UNIT TAB PO SCH ×2 (09:00→21:00)
[2016-08-24] MEDS ORDERED: CALCIUM 600MG + VIT D 400 IU TAB PO SCH ×2 (09:00→21:00)
--- NOTE | 2016-08-24 16:05 | ECHOCARDIOGRAM REPORT ---
*NOTICE TO RECEIVING REPUBLICAN AGENCY This information is strictly Confidential and protected under [place] law. [place] law prohibits you from making any further disclosure of this information unless further disclosure is expressly permitted by the written consent of the person to whom it pertains or is authorized by law. A general authorization for the release of medical or other information is not sufficient for this purpose. Hospital accepts no responsibility if the information is made available to any other person, INCLUDING THE PATIENT. Interpretation Summary * Name: SANDI MORGAN Study Date: 08/24/2016 01:54 PM BP: 158/75 mmHg * Patient Location: C.2T\S\S243\S\1 HR: 93 * : 1940 (M/d/yyyy) Gender: Male Height: 66 in * Age: 76 yrs Ethnicity: CA Weight: 204 lb * Ordering Physician: Sandra Resendiz * Referring Physician: Self, Referred * Performed By: Lorena Carnes RDCS * * Reason For Study: CHEST PAIN * BSA: 2.0 m2 * -- Conclusions -- * The left ventricle is normal in size. * Left ventricular systolic function is normal. * The left ventricular wall motion is normal. * Ejection Fraction = 60-65%. * The right ventricular systolic function is normal. * The left atrial size is normal. * Right atrial size is normal. * No significant valvular pathology. Procedure Details * A complete two-dimensional transthoracic echocardiogram was performed (2D, M-mode, Doppler and color flow Doppler). Left Ventricle * The left ventricle is normal in size. * There is normal left ventricular wall thickness. * Ejection Fraction = 60-65%. * Left ventricular systolic function is normal. * The left ventricular wall motion is normal. Right Ventricle * The right ventricle is normal size. * The right ventricular systolic function is normal. Atria * The left atrial size is normal. * Right atrial size is normal. Mitral Valve * The mitral valve is normal in structure and function. Tricuspid Valve * The tricuspid valve is normal in structure and function. Aortic Valve * The aortic valve is not well visualized. * No hemodynamically significant valvular aortic stenosis. * There is no significant aortic regurgitation. Pulmonic Valve * The pulmonic valve is not well visualized. Great Vessels * The aortic root and proximal ascending aorta are normal sized. Pericardium/Pleural * There is no pericardial effusion. MMode 2D Measurements and Calculations IVSd 1.1 cm IVSs 1.5 cm LVIDd 4.2 cm LVIDs 2.7 cm LVPWd 1.3 cm LVPWs 1.5 cm IVS/LVPW 0.85 FS 35.9 % EDV(Teich) 77.8 ml ESV(Teich) 26.5 ml EF(Teich) 65.9 % EDV(cubed) 73.1 ml ESV(cubed) 19.2 ml EF(cubed) 73.7 % % IVS thick 42.9 % % LVPW thick 19.3 % LV mass(C)d 171.7 grams LV mass(C)dI 85.1 grams/m\S\2 LV mass(C)s 141.8 grams LV mass(C)sI 70.3 grams/m\S\2 SV(Teich) 51.3 ml SI(Teich) 25.4 ml/m\S\2 SV(cubed) 53.9 ml SI(cubed) 26.7 ml/m\S\2 Ao root diam 2.7 cm Ao root area 5.9 cm\S\2 LA dimension 3.9 cm LA/Ao 1.4 LVAd ap4 25.0 cm\S\2 LVLd ap4 8.0 cm EDV(MOD-sp4) 62.9 ml EDV(sp4-el) 66.0 ml LVAs ap4 13.2 cm\S\2 LVLs ap4 6.3 cm ESV(MOD-sp4) 25.1 ml ESV(sp4-el) 23.4 ml EF(MOD-sp4) 60.0 % EF(sp4-el) 64.5 % LVAd ap2 21.7 cm\S\2 LVLd ap2 7.3 cm EDV(MOD-sp2) 55.0 ml EDV(sp2-el) 55.0 ml LVAs ap2 12.1 cm\S\2 LVLs ap2 6.4 cm ESV(MOD-sp2) 19.1 ml ESV(sp2-el) 19.4 ml EF(MOD-sp2) 65.4 % EF(sp2-el) 64.6 % LVLd %diff -10.04 % EDV(MOD-bp) 61.9 ml LVLs %diff 1.4 % ESV(MOD-bp) 22.0 ml EF(MOD-bp) 64.4 % SV(MOD-sp4) 37.8 ml SI(MOD-sp4) 18.7 ml/m\S\2 SV(MOD-sp2) 36.0 ml SI(MOD-sp2) 17.8 ml/m\S\2 SV(MOD-bp) 39.9 ml SI(MOD-bp) 19.8 ml/m\S\2 SV(sp4-el) 42.6 ml SI(sp4-el) 21.1 ml/m\S\2 SV(sp2-el) 35.5 ml SI(sp2-el) 17.6 ml/m\S\2 Doppler Measurements and Calculations MV E max paris 83.9 cm/sec MV A max paris 66.0 cm/sec MV E/A 1.3 MV dec time 0.20 sec Ao V2 max 128.8 cm/sec Ao max PG 6.6 mmHg Ao max PG (full) 3.9 mmHg LV V1 max PG 2.7 mmHg LV V1 max 82.5 cm/sec
--- NOTE | 2016-08-24 17:17 | Progress Note ---
Medicine Progress Note Date & Time of Visit: August 24, 2016 at 13:45. Subjective Pt was seen and examined Sitting at the edge of the bed with no distress Pt said that he keeps having a dry cough He said that after each coughing spell, his chest feels tight Denies any palpitation, chest pain, and dizziness Objective Last 8 Hrs Date Time Temp Pulse Resp B/P Pulse Ox O2 Delivery O2 Flow Rate FiO2 08/24/16 12:00 Room Air 08/24/16 11:47 36.6 93 18 158/75 93 Room Air 08/24/16 10:26 90 18 94 Room Air 08/24/16 08:00 Room Air 08/24/16 07:26 36.9 69 20 147/83 93 Room Air Physical Exam: General- No acute distress Head- atraumatic Eyes- PERRL, EOMI ENT- oropharynx clear Neck- supple, no JVD Lungs- + rales, no wheezing Heart- regular rhythm; no murmur Abdomen- normal bowel sounds, soft, nontender Extremities- no calf tenderness Neuro- alert, oriented x 3; PERRL, EOMI; no facial palsy Skin- warm & dry Laboratory Results: Last 24 Hours Test 08/23/16 18:25 08/23/16 18:30 08/23/16 18:45 08/23/16 22:09 Influenza Type A (RT-PCR) Neg for Influ A Influenza Type B (RT-PCR) Neg for Influ B White Blood Count 9.88 K/uL Red Blood Count 5.15 M/uL Hemoglobin 15.4 g/dL Hematocrit 45.5 % Mean Corpuscular Volume 88.3 fL Mean Corpuscular Hemoglobin 29.9 pg Mean Corpuscular Hemoglobin Concent 33.8 g/dl Platelet Count 218 K/uL Mean Platelet Volume 11.6 fL Neutrophils (%) (Auto) 84.9 % Lymphocytes (%) (Auto) 8.6 % Monocytes (%) (Auto) 4.9 % Eosinophils (%) (Auto) 1.1 % Basophils (%) (Auto) 0.2 % Neutrophils # (Auto) 8.39 K/uL Lymphocytes # (Auto) 0.85 K/uL Monocytes # (Auto) 0.48 K/uL Eosinophils # (Auto) 0.11 K/uL Basophils # (Auto) 0.02 K/uL RDW Standard Deviation 45.7 fL RDW Coefficient of Variation 14.1 % Immature Granulocyte % (Auto) 0.3 % Immature Granulocyte # (Auto) 0.03 K/uL Prothrombin Time 10.5 SECONDS Prothromb Time International Ratio 1.0 Activated Partial Thromboplast Time 23.0 SECONDS Partial Thromboplastin Ratio 0.9 Sodium Level 140 mmol/L Potassium Level 3.5 mmol/L Chloride Level 106 mmol/L Carbon Dioxide Level 25 mmol/L Anion Gap 9.0 mmol/L Blood Urea Nitrogen 17 mg/dl Creatinine 1.10 mg/dl Est Creatinine Clear Calc Drug Dose 61.9 ml/min Estimated GFR () 75.7 Estimated GFR (Non- 65.3 BUN/Creatinine Ratio 15.8 Random Glucose 150 mg/dl Calcium Level 8.5 mg/dl Total Bilirubin 0.8 mg/dl Aspartate Amino Transf (AST/SGOT) 30 U/L Alanine Aminotransferase (ALT/SGPT) 34 U/L Alkaline Phosphatase 89 U/L Troponin I < 0.015 ng/ml Total Protein 7.4 gm/dl Albumin 3.7 gm/dl Globulin 3.7 gm/dl Albumin/Globulin Ratio 1.0 Bedside Lactic Acid Venous 1.78 mmol/L Test 08/24/16 00:27 08/24/16 06:30 08/24/16 06:52 Creatine Kinase MB 1.2 ng/ml 0.9 ng/ml Creatine Kinase MB Ratio Troponin I < 0.015 ng/ml < 0.015 ng/ml White Blood Count 7.06 K/uL Red Blood Count 4.79 M/uL Hemoglobin 14.5 g/dL Hematocrit 42.1 % Mean Corpuscular Volume 87.9 fL Mean Corpuscular Hemoglobin 30.3 pg Mean Corpuscular Hemoglobin Concent 34.4 g/dl RDW Standard Deviation 44.7 fL RDW Coefficient of Variation 14.0 % Platelet Count 193 K/uL Mean Platelet Volume 11.2 fL Sodium Level 144 mmol/L Potassium Level 3.8 mmol/L Chloride Level 110 mmol/L Carbon Dioxide Level 27 mmol/L Anion Gap 7.0 mmol/L Blood Urea Nitrogen 14 mg/dl Creatinine 0.86 mg/dl Est Creatinine Clear Calc Drug Dose 77.6 ml/min Estimated GFR () 98.3 Estimated GFR (Non- 84.8 BUN/Creatinine Ratio 16.3 Random Glucose 89 mg/dl Calcium Level 8.4 mg/dl Date/Time Source Procedure Growth Status 08/23/16 18:33 Blood Blood Culture Pending Received 08/23/16 18:30 Blood Blood Culture Pending Received 08/23/16 22:25 Nasal MRSA DNA Surveillance Screen - Final Specimen Negative for MRSA by DNA Probe Complete 08/24/16 00:00 Sputum Expectorated Sputum Gram Stain Pending Received 08/24/16 00:00 Sputum Expectorated Sputum Sputum Culture Pending Received Assessment & Plan CHEST TIGHTNESS - presenting with chest tightness / heaviness, shortness of breath, and diaphoresis occurring at rest and after taking Hycodan cough syrup - atypical features, but need to R/O ACS - All 3 sets of troponin negative - EKG showed no ischemic changes - Symptoms mostly due to respiratory due to Pneumonia and the dry cough - Echo pending - Continue ASA, statin - Continue monitor on tele. CAP - cxr showed no change in the left lower lobe hazy density suggesting a pneumonia - Was starting on doxycycline on 08/22 by the ER - was placed on Prednisone taper by PCP on 08/19, will continue with to complete course - Continue Rocephin and Zithromax - Continue Mucinex, flutter valve, PRN nebs - Influenza test negative - Urine legionella pending HTN -Continue amlodipine and valsartan -Stable HLD - continue statin GERD - continue PPI DVT PROPHYLAXIS - SQ Lovenox Current Inpatient Medications: Current Inpatient Medications Medications (Trade) Dose Ordered Sig/Jesse Route Start Time Stop Time Status Last Admin Dose Admin Enoxaparin Sodium (Lovenox Inj) 40 mg Q24H SC 08/24/16 08:00 09/23/16 07:59 Acetaminophen (Tylenol Tab) 650 mg Q4H PRN PO 08/23/16 20:15 09/22/16 20:14 Ondansetron HCl (Zofran Inj) 4 mg Q6H PRN IV 08/23/16 20:15 09/22/16 20:14 Nitroglycerin 0.4 mg 0.4 mg UD PRN SL 08/23/16 20:15 09/22/16 20:14 Ceftriaxone Sodium 1 gm/ Dextrose 50 ml @ 100 mls/hr Q24H IV 08/24/16 18:00 08/31/16 17:59 Azithromycin/ Dextrose (Zithromax IV/D5 250ml) 255 ml @ 125 mls/hr Q24H IV 08/23/16 22:00 08/30/16 21:59 08/23/16 22:35 125 MLS/HR Guaifenesin (Mucinex Contr Rel Tab) 600 mg Q12 PO 08/23/16 21:00 09/22/16 20:59 08/24/16 08:26 600 MG Aspirin (Ecotrin Tab) 81 mg DAILY PO 08/24/16 09:00 09/23/16 08:59 08/24/16 08:25 81 MG Atorvastatin Calcium (Lipitor Tab) 20 mg DAILY PO 08/24/16 09:00 09/23/16 08:59 08/24/16 08:25 20 MG Loratadine (Claritin Tab) 10 mg DAILY PO 08/24/16 09:00 09/23/16 08:59 08/24/16 08:25 10 MG Valsartan (Diovan Tab) 160 mg HS PO 08/23/16 21:00 09/22/16 20:59 08/23/16 22:34 160 MG Amlodipine Besylate (Norvasc Tab) 10 mg QAM PO 08/24/16 09:00 09/23/16 08:59 08/24/16 08:27 10 MG Albuterol/ Ipratropium (Duoneb) 3 ml Q4R PRN INH 08/23/16 20:30 09/22/16 20:29 08/24/16 10:25 3 ML Miscellaneous (Iv Fluids Completed) 1 ea PRN PRN N/A 08/23/16 21:00 08/23/17 20:59 Ranitidine HCl (zANTac TAB) 150 mg BID PO 08/24/16 09:00 09/23/16 08:59 Potassium Chloride (Klor-Con M10) 10 meq BIDM PO 08/23/16 22:00 09/22/16 21:59 08/24/16 08:24 10 MEQ Ranitidine HCl (zANTac TAB) 150 mg DAILY PRN PO 08/24/16 00:30 09/23/16 00:29 08/24/16 00:48 150 MG Calcium/Vitamin D (Caltrate Plus Tab) 1 tab DAILY@2100 PO 5/13/17 21:00 09/23/16 20:59 Prednisone (PredniSONE TAB) 40 mg Taper DAILY@1600 PO 08/24/16 16:00 08/31/16 15:59 Cholecalciferol (Vitamin D Tab) 1,000 inter.unit HS PO 08/24/16 21:00 09/23/16 20:59
[2016-08-24] MEDS ORDERED: CEFTRIAXONE SOD INJ 1 GM in DEXTROSE 5% ADD-VANTAGE 50ML 50 ML IV SCH (18:00)
[2016-08-24] MEDS: VALSARTAN 80 MG TAB PO SCH (20:45)
[2016-08-24] MEDS: AZITHROMYCIN IV 500 MG in DEXTROSE 5% 250ML 250 ML IV SCH (20:48)
[2016-08-25 03:26] VITALS: BP 125/67; PULSE 73; TEMP 36.4; O2SAT 94
[2016-08-25 04:00] VITALS: O2SAT 92
[2016-08-25] MEDS: ENOXAPARIN 40 MG/0.4 ML SYR SC SCH (08:00)
[2016-08-25] MEDS: LORATADINE 10 MG TAB PO SCH (08:38)
[2016-08-25] MEDS: POTASSIUM CHLORIDE 10 MEQ TABCR PO SCH (08:38)
[2016-08-25] MEDS: ASPIRIN 81 MG ECTAB PO SCH (08:39)
[2016-08-25] MEDS: ATORVASTATIN 20 MG TAB PO SCH (08:39)
[2016-08-25] MEDS: AMLODIPINE BESYLATE 5 MG TAB PO SCH (08:39)
[2016-08-25] MEDS: GUAIFENESIN 600 MG TABCR PO SCH (08:39)
[2016-08-25] MEDS: RANITIDINE HCL 150 MG TAB PO SCH (08:39)
[2016-08-25 08:47] VITALS: BP 163/78; PULSE 74; TEMP 36.6; O2SAT 93
--- NOTE | 2016-08-25 11:53 | Progress Note ---
Medicine Progress Note Date & Time of Visit: August 25, 2016 at 11:43. Subjective Pt was seen and examined Sitting in bed with no distress Pt said that his cough improved he said that he feels much better Denies any chest pain, palpitation, chest tightness and SOB Objective Last 8 Hrs Date Time Temp Pulse Resp B/P Pulse Ox O2 Delivery O2 Flow Rate FiO2 08/25/16 08:47 36.6 74 20 163/78 93 Room Air 08/25/16 08:00 Room Air 08/25/16 04:00 92 Room Air Physical Exam: General- No acute distress Head- atraumatic Eyes- PERRL, EOMI ENT- oropharynx clear Neck- supple, no JVD Lungs- no wheezing Heart- regular rhythm; no murmur Abdomen- normal bowel sounds, soft, nontender Extremities- no calf tenderness Neuro- alert, oriented x 3; PERRL, EOMI; no facial palsy Skin- warm & dry Assessment & Plan CHEST TIGHTNESS - presenting with chest tightness / heaviness, shortness of breath, and diaphoresis occurring at rest and after taking Hycodan cough syrup - atypical features, but need to R/O ACS - All 3 sets of troponin negative - EKG showed no ischemic changes - Symptoms mostly due to respiratory due to Pneumonia and the dry cough - Echo pending - Continue ASA, statin - Resolved - Echo showed * The left ventricle is normal in size. * Left ventricular systolic function is normal. * The left ventricular wall motion is normal. * Ejection Fraction = 60-65%. * The right ventricular systolic function is normal. * The left atrial size is normal. * Right atrial size is normal. * No significant valvular pathology. CAP - cxr showed no change in the left lower lobe hazy density suggesting a pneumonia - Was starting on doxycycline on 08/22 by the ER - was placed on Prednisone taper by PCP on 08/19, will continue with to complete course - Continue Rocephin and Zithromax - Will discharged on Levaquin since he was starting on Doxy and developed GI side effects (Nausea) - Continue Mucinex, flutter valve, PRN nebs - Influenza test negative - Urine legionella pending - Sputum cx grew moderate normal jo-ann MODERATE HTN -Continue amlodipine and valsartan -Stable HLD - continue statin GERD - continue PPI DVT PROPHYLAXIS - SQ Lovenox Current Inpatient Medications: Current Inpatient Medications Medications (Trade) Dose Ordered Sig/Jesse Route Start Time Stop Time Status Last Admin Dose Admin Enoxaparin Sodium (Lovenox Inj) 40 mg Q24H SC 08/24/16 08:00 09/23/16 07:59 Acetaminophen (Tylenol Tab) 650 mg Q4H PRN PO 08/23/16 20:15 09/22/16 20:14 Ondansetron HCl (Zofran Inj) 4 mg Q6H PRN IV 08/23/16 20:15 09/22/16 20:14 Nitroglycerin 0.4 mg 0.4 mg UD PRN SL 08/23/16 20:15 09/22/16 20:14 Ceftriaxone Sodium 1 gm/ Dextrose 50 ml @ 100 mls/hr Q24H IV 08/24/16 18:00 08/31/16 17:59 08/24/16 17:31 100 MLS/HR Azithromycin/ Dextrose (Zithromax IV/D5 250ml) 255 ml @ 125 mls/hr Q24H IV 08/23/16 22:00 08/30/16 21:59 08/24/16 20:48 125 MLS/HR Guaifenesin (Mucinex Contr Rel Tab) 600 mg Q12 PO 08/23/16 21:00 09/22/16 20:59 08/25/16 08:39 600 MG Aspirin (Ecotrin Tab) 81 mg DAILY PO 08/24/16 09:00 09/23/16 08:59 08/25/16 08:39 81 MG Atorvastatin Calcium (Lipitor Tab) 20 mg DAILY PO 08/24/16 09:00 09/23/16 08:59 08/25/16 08:39 20 MG Loratadine (Claritin Tab) 10 mg DAILY PO 08/24/16 09:00 09/23/16 08:59 08/25/16 08:38 10 MG Valsartan (Diovan Tab) 160 mg HS PO 08/23/16 21:00 09/22/16 20:59 08/24/16 20:45 160 MG Amlodipine Besylate (Norvasc Tab) 10 mg QAM PO 08/24/16 09:00 09/23/16 08:59 08/25/16 08:39 10 MG Albuterol/ Ipratropium (Duoneb) 3 ml Q4R PRN INH 5/12/17 20:30 09/22/16 20:29 08/24/16 10:25 3 ML Miscellaneous (Iv Fluids Completed) 1 ea PRN PRN N/A 08/23/16 21:00 08/23/17 20:59 Ranitidine HCl (zANTac TAB) 150 mg BID PO 08/24/16 09:00 09/23/16 08:59 08/25/16 08:39 150 MG Potassium Chloride (Klor-Con M10) 10 meq BIDM PO 08/23/16 22:00 09/22/16 21:59 08/25/16 08:38 10 MEQ Ranitidine HCl (zANTac TAB) 150 mg DAILY PRN PO 08/24/16 00:30 09/23/16 00:29 08/24/16 00:48 150 MG Calcium/Vitamin D (Caltrate Plus Tab) 1 tab DAILY@2100 PO 08/24/16 21:00 09/23/16 20:59 08/24/16 20:44 1 TAB Prednisone (PredniSONE TAB) 40 mg Taper DAILY@1600 PO 08/24/16 16:00 08/31/16 15:59 08/24/16 16:40 40 MG Cholecalciferol (Vitamin D Tab) 1,000 inter.unit HS PO 08/24/16 21:00 09/23/16 20:59 08/24/16 20:44 1,000 INTER.UNIT
[2016-08-25] MEDS ORDERED: GUAI1TAB68 PO (12:05)
[2016-08-25] MEDS ORDERED: LEVO1TAB34 PO ×2 (12:05→12:16)
--- NOTE | 2016-08-25 12:13 | Discharge Instructions ---
Discharge Instructions Date of Service August 25, 2016. Admission Reason for Admission: Chest Pain Discharge Discharge Diagnosis / Problem: Pneumonia, Chest Tightness, hypertension Discharge Goals Goal(s): Decrease discomfort, Improve function, Improve disease control, Diagnostic testing Activity Recommendations Activity Limitations: resume your previous activity (as tolerated) . Instructions / Follow-Up Instructions / Follow-Up Dr. Mcnulty's office will call you tomorrow to schedule a follow up appointment Finish the steroid taper Complete the antibiotic course Current Hospital Diet Patient's current hospital diet: AHA Diet (Heart Healthy) Discharge Diet Recommended Diet: AHA Diet (Heart Healthy) Pending Studies Studies pending at discharge: yes List of pending studies: Urine for legionella Medical Emergencies . Who to Call and When: Medical Emergencies: If at any time you feel your situation is an emergency, please call 911 immediately. . Non-Emergent Contact Non-Emergency issues call your: Primary Care Provider Call Non-Emergent contact if: you have a fever, you have any medication questions . . "Provider Documentation" section prepared by Grey Olivarez. . VTE Core Measure Inpt VTE Proph given/why not?: Enoxaparin (Lovenox)SQ
[2016-08-25 12:18] VITALS: BP 163/78; PULSE 74; TEMP 36.6; O2SAT 93
[2016-08-25 12:24] VITALS: BP 153/84; PULSE 81; TEMP 36.6; O2SAT 93
[2016-08-25] MEDS ORDERED: LEVOFLOXACIN 500 MG TAB PO ONE (13:00)
--- NOTE | 2016-08-25 23:44 | Discharge Summary ---
Discharge Summary Date of Service August 25, 2016. Discharge Summary Admission Date: August 24, 2016 at 17:22 Discharge Date: August 25, 2016 Discharge Disposition: Home Principal Diagnosis: Community Acquired Pneumonia Secondary Diagnoses/Problems: Pneumonia Chest Tightness Hypertension Procedures: CHEST ONE VIEW PORTABLE HISTORY: Sepsis COMPARISON: Chest CTA 08/22/2016. FINDINGS: Patchy densities within the left lung base persist. There are linear densities within the right lung base suggesting atelectasis. No evidence for pulmonary edema. The heart is mildly enlarged. This remains unchanged. No pneumothorax. IMPRESSION: No change in the left lower lobe hazy density suggesting a pneumonia. One month chest x-ray follow-up can be performed to ensure resolution. Electronically signed by: Asaf Eason M.D. 08/23/2016 6:54 PM Dictated Date/Time: 08/23/2016 6:53 PM ECHO Interpretation Summary * Name: SANDI MORGAN Study Date: 08/24/2016 01:54 PM BP: 158/75 mmHg * Patient Location: [facility]\\\\[id number]\\[id number]\\[id number] HR: 93 * : 1940 (M/d/yyyy) Gender: Male Height: 66 in * Age: 76 yrs Ethnicity: [place] Weight: 204 lb * Ordering Physician: Sandra Resendiz * Referring Physician: Self, Referred * Performed By: Lorena Carnes RDCS * * Reason For Study: CHEST PAIN * BSA: 2.0 m2 * -- Conclusions -- * The left ventricle is normal in size. * Left ventricular systolic function is normal. * The left ventricular wall motion is normal. * Ejection Fraction = 60-65%. * The right ventricular systolic function is normal. * The left atrial size is normal. * Right atrial size is normal. * No significant valvular pathology. Procedure Details * A complete two-dimensional transthoracic echocardiogram was performed (2D, M- mode, Doppler and color flow Doppler). Left Ventricle * The left ventricle is normal in size. * There is normal left ventricular wall thickness. * Ejection Fraction = 60-65%. * Left ventricular systolic function is normal. * The left ventricular wall motion is normal. Right Ventricle * The right ventricle is normal size. * The right ventricular systolic function is normal. Atria * The left atrial size is normal. * Right atrial size is normal. Mitral Valve * The mitral valve is normal in structure and function. Tricuspid Valve * The tricuspid valve is normal in structure and function. Aortic Valve * The aortic valve is not well visualized. * No hemodynamically significant valvular aortic stenosis. * There is no significant aortic regurgitation. Pulmonic Valve * The pulmonic valve is not well visualized. Great Vessels * The aortic root and proximal ascending aorta are normal sized. Pericardium/Pleural * There is no pericardial effusion. Medication Reconciliation New Medications: Guaifenesin (Organ-I Nr) 200 Mg Tab 1 TAB PO Q6 PRN for Cough for 5 Days, #20 Levofloxacin (Levaquin) 500 Mg Tab 500 MG PO DAILY for 5 Days, #5 TAB Continued Medications: Albuterol Hfa (Ventolin Hfa) 200 Puffs/02026 Mcg Aers 2 PUFFS INH QID, #1 INHALER Amlodipine Besylate (Amlodipine Besylate) 10 Mg Tab 10 MG PO DAILY Aspirin (Aspirin Ec) 81 Mg Tab 81 MG PO DAILY Atorvastatin (Atorvastatin Calcium) 20 Mg Tab 20 MG PO DAILY Calcium Carbonate-Cholecalcife (Calcium 600+D3 600-400 mg-Unit) 1 Tab Tab 1 TAB PO DAILY Cholecalciferol (Vitamin D3) 1,000 Unit Tab 1 TAB PO DAILY for 30 Days, #30 TAB 5 Refills Loratadine (Claritin) 10 Mg Tab 10 MG PO DAILY, TAB Misc Natural Products (Ginkgo Biloba) 1 Tab Tab 1 TAB PO DAILY Potassium Chloride (Potassium Chloride Er) 10 Meq Tab 10 MEQ PO BID Prednisone (Prednisone) 10 Mg Tab PO UD, #30 4 PILLS FOR 1 DAY,3 FOR 2 days,2 FOR 2 days AND 1 PILL FOR 2 DAYS THEN STOP Valsartan (Diovan) 160 Mg Tab 160 MG PO HS Discontinued Medications: Doxycycline Hyclate (Vibramycin) 100 Mg Cap 100 MG PO BID for 7 Days, #14 CAP Hydrocodone W/ Homatropine (Hycodan 5/1.5MG 5 Ml) 1 Syp Syp 5-10 ML PO Q4H PRN for Cough, #200 ML Admission Information HPI (per Admitting provider): 76 year old male who presents to the ER with shortness of breath and chest tightness. Patient reports he was away on a cruise vacation for over 3 weeks and returned home last week. He reports that towards the end of his vacation he started to develop a mild non productive cough. He reports other people in his group as well as his were sick as well with similar symptoms. His symptoms progressively got worse and he was seen by his PCP on 08/20 and given a prednisone taper. He continued to feel poorly and was seen in the ER yesterday and diagnosed with pneumonia. CT was also obtained that was negative for pulmonary embolism. He was discharged on albuterol inhaler, doxycycline, and Hycodan cough syrup. He reports he initially felt better however this afternoon the chest tightness and heaviness returned. He also felt short of breath, diaphoretic, and nauseous. These episodes occurred twice with the more severe one occurring second. He notes taking the Hycodan right before these episodes occurred. The symptoms also occurred at rest and resolved on their own. He denies fever and chills. Cough remains mostly non productive. He denies abdominal pain, vomiting, or diarrhea. No urinary symptoms. In the ER, vitals are stable. Patient is saturating well on room air. Initial troponin is negative and EKG does not show any acute ST changes. He was given a dose of Rocephin. Physical Exam (per Admitting): General Appearance: no apparent distress Head: normocephalic Eyes: normal inspection ENT: hearing grossly normal Neck: supple, no JVD Respiratory/Chest: no respiratory distress, + rales (left lung base, right middle and lower lung castillo) Cardiovascular: regular rate, rhythm, no edema, normal peripheral pulses Abdomen/GI: normal bowel sounds, non tender, soft Extremities/Musculoskelatal: normal inspection, no calf tenderness Neurologic/Psych: no motor/sensory deficits, alert, normal mood/affect, oriented x 3 Skin: normal color, warm/dry Hospital Course CHEST TIGHTNESS - presenting with chest tightness / heaviness, shortness of breath, and diaphoresis occurring at rest and after taking Hycodan cough syrup - atypical features, but need to R/O ACS - All 3 sets of troponin negative - EKG showed no ischemic changes - Symptoms mostly due to respiratory due to Pneumonia and the dry cough - Echo pending - Continue ASA, statin - Resolved - Echo showed * The left ventricle is normal in size. * Left ventricular systolic function is normal. * The left ventricular wall motion is normal. * Ejection Fraction = 60-65%. * The right ventricular systolic function is normal. * The left atrial size is normal. * Right atrial size is normal. * No significant valvular pathology. CAP - cxr showed no change in the left lower lobe hazy density suggesting a pneumonia - Was starting on doxycycline on 08/22 by the ER - was placed on Prednisone taper by PCP on 08/19, will continue with to complete course - Continue Rocephin and Zithromax - Will discharged on Levaquin since he was starting on Doxy and developed GI side effects (Nausea) - Continue Mucinex, flutter valve, PRN nebs - Influenza test negative - Urine legionella pending - Sputum cx grew moderate normal jo-ann MODERATE HTN -Continue amlodipine and valsartan -Stable HLD - continue statin GERD - continue PPI DVT PROPHYLAXIS - SQ Lovenox Total time spent on discharge = 35 MINUTES This includes examination of the patient, discharge planning, medication reconciliation, and communication with other providers. Discharge Instructions Admission Reason for Admission: Chest Pain Discharge Discharge Diagnosis / Problem: Pneumonia, Chest Tightness, hypertension Discharge Goals Goal(s): Decrease discomfort, Improve function, Improve disease control, Diagnostic testing Activity Recommendations Activity Limitations: resume your previous activity (as tolerated) . Instructions / Follow-Up Instructions / Follow-Up Dr. Mcnulty's office will call you tomorrow to schedule a follow up appointment Finish the steroid taper Complete the antibiotic course Current Hospital Diet Patient's current hospital diet: AHA Diet (Heart Healthy) Discharge Diet Recommended Diet: AHA Diet (Heart Healthy) Pending Studies Studies pending at discharge: yes List of pending studies: Urine for legionella Medical Emergencies . Who to Call and When: Medical Emergencies: If at any time you feel your situation is an emergency, please call 911 immediately. . Non-Emergent Contact Non-Emergency issues call your: Primary Care Provider Call Non-Emergent contact if: you have a fever, you have any medication questions . . "Provider Documentation" section prepared by Grey Olivarez. . VTE Core Measure Inpt VTE Proph given/why not?: Enoxaparin (Lovenox)SQ Additional Copies To Travis Mcnulty D.O.
[2016-08-26 11:40] LABS: LEGIONELLA ANTIGEN NOT DETECTED (NOT DETECTED)
== END 2016-08-25 13:14 | disposition home or self-care (01) | DRG 195 ==
LOC: ENRESERVTM → ENRESERVDT → C.EDB 18:10 → C.2T 20:15 → OBSVTOIN 08-24 17:22
PROVIDERS: ADMIT Internal Medicine; ATTEND Internal Medicine
DX: J18.9 Pneumonia, unspecified organism (principal); I10 Essential (primary) hypertension; E78.5 Hyperlipidemia, unspecified; K21.9 Gastro-esophageal reflux disease without esophagitis; Z82.0 Family history of epilepsy and other diseases of the nervous system; Z79.899 Other long term (current) drug therapy; Z79.52 Long term (current) use of systemic steroids; Z79.82 Long term (current) use of aspirin

== ENCOUNTER → 2016-10-01 | Outpatient (CLI) | payer BC ==
[~2016-10-01] MED LIST changes: +CHOL1000 PO; -CHOL2000 PO; -DOXY100C2 PO; +DVN/160 PO; +GUAI1TAB68 PO; -HYDR5SYP11 PO; +LEVO1TAB34 PO; -VALS-58 PO; +VNTHFA/IN INH
--- NOTE | 2016-10-01 14:28 | DIAGNOSTIC IMAGING REPORT ---
CHEST 2 VIEWS ROUTINE CLINICAL HISTORY: BACTERIAL PNEUMONIA pneumonitis COMPARISON STUDY: 08/23/2016 FINDINGS: The bones soft tissues and hemidiaphragms are normal. The cardiomediastinal silhouette is normal. The lungs are clear. The pulmonary vasculature is normal. IMPRESSION: Negative chest. Electronically signed by: Billy Ye M.D. 10/01/2016 2:26 PM Dictated Date/Time: 10/01/2016 2:26 PM
== END | disposition home or self-care (01) ==
LOC: C.RADBC 14:13
PROVIDERS: ATTEND Internal Medicine
DX: J15.9 Unspecified bacterial pneumonia (principal)

== ENCOUNTER → 2016-11-05 | Outpatient (CLI) | payer BC ==
[2016-11-05 11:25] LABS: ALB/GLOB RATIO 0.9 (0.9-2); ALKALINE PHOSPHATASE 87 U/L (45-117); ALT/SGPT 34 U/L (12-78); AST/SGOT 22 U/L (15-37); BLOOD UREA NITROGEN 18 mg/dl (7-18); BUN/CREATININE RATIO 16.5 (10-20); CALCIUM 9.3 mg/dl (8.5-10.1); CARBON DIOXIDE 29 mmol/L (21-32); CHLORIDE 108 mmol/L (98-107); CHOLESTEROL 113 mg/dl (0-200); CHOLESTEROL/HDL RATIO 2.5; GLUCOSE 98 mg/dl (70-99); HDL CHOLESTEROL 46 mg/dl; LDL CHOLESTEROL CALCULATED 34 mg/dl; POTASSIUM 4.2 mmol/L (3.5-5.1); SODIUM 142 mmol/L (136-145); TRIGLYCERIDES 167 mg/dl (0-150); VERY LOW DENSITY LIPOPROT CALC 33 mg/dl
[2016-11-05 11:48] LABS: ESTIMATED AVERAGE GLUCOSE 114 mg/dl; HA1C FLAG Normal (Normal)
--- NOTE | 2016-11-12 07:17 | CODING QUERY MEDICAL NECESSITY ---
SUPPORTING DIAGNOSIS NEEDED Dr. Mcnulty, A supporting diagnosis is required for the test/procedure performed on this patient in order for us to be reimbursed by the patient's insurance. Please provide a supporting diagnosis for the following test/procedure listed below next to the test name along with your signature. *If there is no additional diagnosis for this patient that would support the following test/procedure please document that below next to the test/procedure. Test(s)/Procedure(s) that require a supporting diagnosis: * [id number] GLYCATED HEMOGLOBIN DIAGNOSIS: DATE OF SERVICE: 11/05/16 Provider Signature: Date: Thank you Godwin Cramer [facility] Information Management Once completed, please kindly fax back to [phone] For questions please call [phone]
== END | disposition home or self-care (01) ==
LOC: C.LABBC 08:43
PROVIDERS: ATTEND Internal Medicine
DX: N18.3 Chronic kidney disease, stage 3 (moderate) (principal); I12.9 Hypertensive chronic kidney disease with stage 1 through stage 4 chronic kidney disease, or unspecified chronic kidney disease; E11.22 Type 2 diabetes mellitus with diabetic chronic kidney disease

== ENCOUNTER → 2017-07-09 | Day surgery (SDC) | payer BC ==
[2017-07-04 09:51] VITALS: Ht 165.1 cm; Wt 86.4 kg
[~2017-07-09] VITALS: Ht 165.1 cm; Wt 86.4 kg
[~2017-07-09] MED LIST changes: +500ML BSS 0.3ML EPI 1:1000PF IRRIG ONE; +ACETAMINOPHEN 325 MG TAB PO PRN; +AMVISC PLUS 0.8ML SYRINGE INT OCU ONE; +ATROPINE SULFATE 0.1 MG/ML 5ML SYR IV PRN; +AcetaZOLAMIDE 250 MG TAB PO SCH; +BETAXOLOL HCL 0.25% OP SUSP PER DROP CHARGE OPL SCH; +BRIMONIDINE TART 0.2% OP SOLN PER DROP CHARGE ONE; +BRIMONIDINE TARTRATE 0.2% 5ML ONE; +BSS FLUSH ONE; +ENDOCOAT 0.85ML SYRINGE INT OCU ONE; +EpHEDrine SULFATE INJ 50 MG/ML AMP IV PRN; +EpINEphrine INJ 1MG/ML AMP 1 MG/ML AMP ONE; -GUAI1TAB68 PO; +LACTATED RINGER'S 1000ML 500 ML IV SCH; -LEVO1TAB34 PO; +LIDOCAINE 4% OP SOLN DROP CHARGE ONE; +LIDOCAINE 4% OP SOLN DROP CHARGE OPL SCH; +LIDOCAINE HCL 1% MPF 2 ML VIAL ONE; -LORA10TA5 PO; +LORA10TA6 PO; -LPT/20 PO; +LPT20 PO; +MIDAZOLAM HCL 1 MG/ML 2ML VIAL ONE; +MIX: 4ML BSS 1ML EPI 1:1000 PF INSTIL ONE; +MOXIFLOXACIN OPH SOLN PER DROP CHARGE ONE; +POVIDONE-IODINE OP SOLN 30 ML BTL ONE; -PRED10TA PO; +PROPARACAINE 0.5% OP SOLN PER DROP CHARGE OPL SCH; +TOBRAMYCIN/DEXAMETHASONE OPH OINT PER APPLN CHARGE ONE; -VNTHFA/IN INH
[2017-07-09] MEDS: PHENYLEPHRINE HCL 2.5% OP SOLN PER DROP CHARGE OPL SCH ×2 (06:39→06:44)
[2017-07-09] MEDS: TROPICAMIDE 1% OP SOLN PER DROP CHARGE OPL SCH ×2 (06:40→06:45)
[2017-07-09] MEDS: CYCLOPENTOLATE HCL 1% OP SOLN PER DROP CHARGE OPL SCH ×2 (06:41→06:46)
[2017-07-09] MEDS: MOXIFLOXACIN OPH SOLN PER DROP CHARGE OPL SCH ×2 (06:42→06:53)
--- NOTE | 2017-07-09 06:50 | History & Physical Bridge - SC ---
H&P Re-Evaluation Bridge Note: I have examined the patient, reviewed the History & Physical and in the interval since the performance of the History & Physical I have noted the following changes of clinical significance: No changes noted
--- NOTE | 2017-07-09 07:17 | [facility] Operative Report ---
Operative Report Date of Service Jul 09, 2017. Operative Report 1. PREOPERATIVE DIAGNOSIS: Senile nuclear cataract, left eye. 2. POSTOPERATIVE DIAGNOSIS: Senile nuclear cataract, left eye. 3. PROCEDURE: Phacoemulsification of left cataract with posterior chamber lens implant, type Bausch [employer] Lomb, model MX60, power +20.0 diopters. ANESTHESIA: Local standby. SURGEON: Dr. Brown. COMPLICATIONS: None. OPERATING TIME: 10 minutes. 4. OPERATION AND FINDINGS: DESCRIPTION OF PROCEDURE: The left pupil was dilated. The anesthetic was administered using a topical technique. The left eye was prepped and draped. A speculum was placed. A clear corneal incision was formed. The chamber was filled with Amvisc Plus and Endocoat. Epinephrine solution was used. A paracentesis was placed. A capsulorrhexis was performed. The nucleus was hydrodissected. The lens was removed with phacoemulsification. Time was 2.43 seconds. The aspiration unit was used to remove the cortex. The capsule was filled with Amvisc Plus. The lens implant was folded and placed into the capsule. The incision was hydrated. The Amvisc was aspirated. The wound was secure. The chamber was deep. The pupil was round. Brimonidine, TobraDex ointment and Vigamox solution were placed. The speculum was removed. The patient was returned to the Recovery Room in stable condition. I attest to the content of the Intraoperative Record and any orders documented therein. Any exceptions are noted below. The scribe's documentation has been prepared in my presence, under my direction and personally reviewed by me in its entirety. I confirm that the note above accurately reflects all work, treatment, procedures, and medical decision making performed by me. I personally scribed for Logan Brown M.D. (MIMI) on 07/09/17 at 07:17. Electronically submitted by Sandra Haddad (ANTONIO).
--- NOTE | 2017-07-09 07:21 | Discharge Instructions-SurgCtr ---
Discharge Instructions Date of Service Jul 09, 2017. Visit Reason for Visit: Cataract Left Eye Discharge Discharge Diagnosis / Problem: lens implant left eye Discharge Goals Goal(s): Improve function Activity Recommendations Activity Limitations: resume your previous activity Lifting Limitations: no more than 10 pounds Exercise/Sports Limitations: gradually increase as tolerated May Resume Sexual Activity: when tolerated Shower/Bathe: tomorrow Driving or Machine Use: resume 1 day after discharge Anesthesia . Post Anesthesia Instructions: If you have had General Anesthesia or IV Sedation: * Do not drive today. * Resume driving when surgeon permits. * Do not make important decisions or sign legal documents today. * Call surgeon for: 1. Temperature elevations greater than 101 degrees F. 2. Uncontrollable pain. 3. Excessive bleeding. 4. Persistent nausea and vomiting. 5. Medication intolerance (nausea, vomiting or rash). * For nausea and vomiting use only clear liquids such as: tea, soda, bouillon until nausea subsides, then gradually increase diet as tolerated. * If you have any concerns or questions, call your surgeon's office. If physician is unavailable and it is an emergency, call 911 or go to the nearest emergency room. . Instructions / Follow-Up Instructions / Follow-Up ACTIVITY RECOMMENDATIONS: * Light activities. * Mild irritation and blurred vision are common for the first few days. * You may walk outside, read, watch television. * Redness around the white part of the eye is common. MEDICATIONS: Resume previous medications unless instructed otherwise by your surgeon. * Take white Diamox (Acetazolamide) tablet at 1 pm today. Start all eye drops at 1 pm today: * Eye drops (today and tomorrow): Prednisone - one drop in operative eye every 3 hours while awake Ofloxacin - one drop in operative eye every 3 hours while awake SPECIAL CARE INSTRUCTIONS: * Tape plastic shield over eye to sleep at night. Call your doctor at with any concerns or problems. FOLLOW UP VISIT: Follow-up with Dr Brown at [facility] as scheduled. Diet Recommendations Home Diet: no limitations Procedures Procedures Performed: Left Cataract Phacoemulsification With Intraocular Lens Implant Pending Studies Studies pending at discharge: no Medical Emergencies . Who to Call and When: Medical Emergencies: If at any time you feel your situation is an emergency, please call 911 immediately. . Non-Emergent Contact Non-Emergency issues call your: [employer] Call Non-Emergent contact if: your pain is not controlled [phone] . . "Provider Documentation" section prepared by Logan Brown. .
[2017-07-09 07:22] VITALS: TEMP 36.4
--- NOTE | 2017-07-09 07:34 | Anesthesia Progress Nt - [facility] ---
Anesthesia Post Op Note Date & Time Jul 09, 2017 at 07:34 Vital Signs Pain Intensity: 0 Vital Signs Past 12 Hours Date Time Temp Pulse Resp B/P (MAP) Pulse Ox O2 Delivery O2 Flow Rate FiO2 07/09/17 07:22 36.4 70 16 140/78 (98) 95 Room Air 07/09/17 06:32 37.1 80 18 157/77 (103) 96 Room Air Notes Mental Status: alert / awake / arousable, participated in evaluation Pt Amnestic to Procedure: Yes Nausea / Vomiting: adequately controlled Pain: adequately controlled Airway Patency, RR, SpO2: stable & adequate BP & HR: stable & adequate Hydration State: stable & adequate Anesthetic Complications: no major complications apparent
[2017-07-09 07:40] VITALS: BP 122/72; PULSE 74; O2SAT 94
== END | disposition home or self-care (01) ==
LOC: X.SURG 06:17
PROVIDERS: ATTEND Specialist
DX: H25.12 Age-related nuclear cataract, left eye (principal); I10 Essential (primary) hypertension; K21.9 Gastro-esophageal reflux disease without esophagitis; Z88.8 Allergy status to other drugs, medicaments and biological substances

== ENCOUNTER → 2017-07-23 | Day surgery (SDC) | payer BC ==
[2017-07-21 08:33] VITALS: Ht 165.1 cm; Wt 86.4 kg
[~2017-07-23] VITALS: Ht 165.1 cm; Wt 86.4 kg
[~2017-07-23] MED LIST changes: -BETAXOLOL HCL 0.25% OP SUSP PER DROP CHARGE OPL SCH; +BETAXOLOL HCL 0.25% OP SUSP PER DROP CHARGE OPR SCH; -BRIMONIDINE TARTRATE 0.2% 5ML ONE; -LIDOCAINE 4% OP SOLN DROP CHARGE OPL SCH; +LIDOCAINE 4% OP SOLN DROP CHARGE OPR SCH; -PROPARACAINE 0.5% OP SOLN PER DROP CHARGE OPL SCH; +PROPARACAINE 0.5% OP SOLN PER DROP CHARGE OPR SCH
[2017-07-23] MEDS: TROPICAMIDE 1% OP SOLN PER DROP CHARGE OPR SCH ×2 (09:45→09:50)
[2017-07-23] MEDS: PHENYLEPHRINE HCL 2.5% OP SOLN PER DROP CHARGE OPR SCH ×2 (09:45→09:49)
[2017-07-23] MEDS: CYCLOPENTOLATE HCL 1% OP SOLN PER DROP CHARGE OPR SCH ×2 (09:46→09:51)
[2017-07-23] MEDS: MOXIFLOXACIN OPH SOLN PER DROP CHARGE OPR SCH ×2 (09:48→09:53)
--- NOTE | 2017-07-23 10:45 | [facility] Operative Report ---
Operative Report Date of Service Jul 23, 2017. Operative Report 1. PREOPERATIVE DIAGNOSIS: Senile nuclear cataract, right eye. 2. POSTOPERATIVE DIAGNOSIS: Senile nuclear cataract, right eye. 3. PROCEDURE: Phacoemulsification of right cataract with posterior chamber lens implant, type Bausch [employer] Lomb, model MX60, power +20.5 diopters. ANESTHESIA: Local standby. SURGEON: Dr. Brown. COMPLICATIONS: None. OPERATING TIME: 10 minutes. 4. OPERATION AND FINDINGS: DESCRIPTION OF PROCEDURE: The right pupil was dilated. The anesthetic was administered using a topical technique. The right eye was prepped and draped. A speculum was placed. A clear corneal incision was formed. The chamber was filled with Amvisc Plus and Endocoat. Epinephrine solution was used. A paracentesis was placed. A capsulorrhexis was performed. The nucleus was hydrodissected. The lens was removed with phacoemulsification. Time was 2.54 seconds. The aspiration unit was used to remove the cortex. The capsule was filled with Amvisc Plus. The lens implant was folded and placed into the capsule. The incision was hydrated. The Amvisc was aspirated. The wound was secure. The chamber was deep. The pupil was round. Brimonidine, TobraDex ointment and Vigamox solution were placed. The speculum was removed. The patient was returned to the Recovery Room in stable condition. I attest to the content of the Intraoperative Record and any orders documented therein. Any exceptions are noted below. The scribe's documentation has been prepared in my presence, under my direction and personally reviewed by me in its entirety. I confirm that the note above accurately reflects all work, treatment, procedures, and medical decision making performed by me. I personally scribed for Logan Brown M.D. (MIMI) on 07/23/17 at 10:45. Electronically submitted by Sandra Haddad (ANTONIO).
--- NOTE | 2017-07-23 10:47 | Discharge Instructions-SurgCtr ---
Discharge Instructions Date of Service Jul 23, 2017. Visit Reason for Visit: Cataract Right Eye Discharge Discharge Diagnosis / Problem: lens implant right eye Discharge Goals Goal(s): Improve function Activity Recommendations Activity Limitations: resume your previous activity Lifting Limitations: no more than 10 pounds Exercise/Sports Limitations: gradually increase as tolerated May Resume Sexual Activity: when tolerated Shower/Bathe: tomorrow Driving or Machine Use: resume 1 day after discharge Anesthesia . Post Anesthesia Instructions: If you have had General Anesthesia or IV Sedation: * Do not drive today. * Resume driving when surgeon permits. * Do not make important decisions or sign legal documents today. * Call surgeon for: 1. Temperature elevations greater than 101 degrees F. 2. Uncontrollable pain. 3. Excessive bleeding. 4. Persistent nausea and vomiting. 5. Medication intolerance (nausea, vomiting or rash). * For nausea and vomiting use only clear liquids such as: tea, soda, bouillon until nausea subsides, then gradually increase diet as tolerated. * If you have any concerns or questions, call your surgeon's office. If physician is unavailable and it is an emergency, call 911 or go to the nearest emergency room. . Instructions / Follow-Up Instructions / Follow-Up ACTIVITY RECOMMENDATIONS: * Light activities. * Mild irritation and blurred vision are common for the first few days. * You may walk outside, read, watch television. * Redness around the white part of the eye is common. MEDICATIONS: Resume previous medications unless instructed otherwise by your surgeon. * Take white Diamox (Acetazolamide) tablet at 2 pm today. Start all eye drops at 2 pm today: * Eye drops (today and tomorrow): Prednisone - one drop in operative eye every 3 hours while awake Ofloxacin - one drop in operative eye every 3 hours while awake SPECIAL CARE INSTRUCTIONS: * Tape plastic shield over eye to sleep at night. Call your doctor at with any concerns or problems. FOLLOW UP VISIT: Follow-up with Dr Brown at [facility] as scheduled. Diet Recommendations Home Diet: no limitations Procedures Procedures Performed: Right Cataract Phacoemulsification With Intraocular Lens Implant Pending Studies Studies pending at discharge: no Medical Emergencies . Who to Call and When: Medical Emergencies: If at any time you feel your situation is an emergency, please call 911 immediately. . Non-Emergent Contact Non-Emergency issues call your: Student Ambassador Call Non-Emergent contact if: your pain is not controlled [phone] . . "Provider Documentation" section prepared by Logan Brown. .
[2017-07-23 10:49] VITALS: TEMP 36.8
[2017-07-23 11:18] VITALS: BP 133/70; PULSE 66; O2SAT 95
--- NOTE | 2017-07-23 11:23 | Anesthesia Progress Nt - [facility] ---
Anesthesia Post Op Note Date & Time Jul 23, 2017 at 11:23 Vital Signs Pain Intensity: 0 Vital Signs Past 12 Hours Date Time Temp Pulse Resp B/P (MAP) Pulse Ox O2 Delivery O2 Flow Rate FiO2 07/23/17 11:18 66 20 133/70 (91) 95 Room Air 07/23/17 10:49 36.8 70 16 118/71 (87) 95 Room Air 07/23/17 09:33 36.6 75 16 160/81 (107) 96 Room Air Notes Mental Status: alert / awake / arousable, participated in evaluation Pt Amnestic to Procedure: Yes Nausea / Vomiting: adequately controlled Pain: adequately controlled Airway Patency, RR, SpO2: stable & adequate BP & HR: stable & adequate Hydration State: stable & adequate Anesthetic Complications: no major complications apparent
== END | disposition home or self-care (01) ==
LOC: X.SURG 09:13
PROVIDERS: ATTEND Specialist
DX: H25.11 Age-related nuclear cataract, right eye (principal); I10 Essential (primary) hypertension; Z98.42 Cataract extraction status, left eye; Z88.8 Allergy status to other drugs, medicaments and biological substances; Z88.6 Allergy status to analgesic agent; Z79.82 Long term (current) use of aspirin

== ENCOUNTER → 2017-09-03 | Day surgery (SDC) | payer BC ==
[2017-08-26 10:11] VITALS: Ht 166.4 cm; Wt 86.4 kg
[~2017-09-03] VITALS: Ht 166.4 cm; Wt 86.4 kg
[~2017-09-03] MED LIST changes: -500ML BSS 0.3ML EPI 1:1000PF IRRIG ONE; -ACETAMINOPHEN 325 MG TAB PO PRN; -AMVISC PLUS 0.8ML SYRINGE INT OCU ONE; -ATROPINE SULFATE 0.1 MG/ML 5ML SYR IV PRN; -AcetaZOLAMIDE 250 MG TAB PO SCH; -BETAXOLOL HCL 0.25% OP SUSP PER DROP CHARGE OPR SCH; -BRIMONIDINE TART 0.2% OP SOLN PER DROP CHARGE ONE; -BSS FLUSH ONE; -CHOL1000 PO; -ENDOCOAT 0.85ML SYRINGE INT OCU ONE; -EpHEDrine SULFATE INJ 50 MG/ML AMP IV PRN; -EpINEphrine INJ 1MG/ML AMP 1 MG/ML AMP ONE; -LACTATED RINGER'S 1000ML 500 ML IV SCH; -LIDOCAINE 4% OP SOLN DROP CHARGE ONE; -LIDOCAINE 4% OP SOLN DROP CHARGE OPR SCH; -LIDOCAINE HCL 1% MPF 2 ML VIAL ONE; +LIDOCAINE HCL 2% 2 ML VIAL (20MG/ML) ONE; -LORA10TA6 PO; -MIX: 4ML BSS 1ML EPI 1:1000 PF INSTIL ONE; -MOXIFLOXACIN OPH SOLN PER DROP CHARGE ONE; +ONDANSETRON INJ 2 MG/ML 2 ML VIAL ONE; -POVIDONE-IODINE OP SOLN 30 ML BTL ONE; -PROPARACAINE 0.5% OP SOLN PER DROP CHARGE OPR SCH; +PROPOFOL IV EMULSION 10 MG/ML 20 ML VIAL ONE; +SODIUM CHLORIDE 0.9% 500ML 500 ML IV ONE; -TOBRAMYCIN/DEXAMETHASONE OPH OINT PER APPLN CHARGE ONE
--- NOTE | 2017-09-03 09:09 | Endo History and Physical ---
History & Physical Date of Service: September 03, 2017. Chief Complaint: Hx of Colon Polyps Referring Physician: Travis Mcnulty History of Present Illness 77 yo with a history of polyps presenting for colonoscopy Past Medical History Cancer, Hypertension Past Surgical History Hx Cardiac Surgery: No Hx Internal Defibrillator: No Hx Pacemaker: No Hx Abdominal Surgery: No Hx of Implantable Prosthesis: No Hx Post-Op Nausea and Vomiting: No Hx Cancer Surgery: No Hx Thoracic Surgery: No Hx Orthopedic: No Hx Urinary Tract Surgery: No Family History None Social History Smoking Status: Former Smoker Hx Substance Use: No Hx Alcohol Use: Yes (RARELY) Allergies Coded Allergies: Levothyroxine (Verified Allergy, Intermediate, HIVES, 09/03/17) states always became septic Codeine (Verified Adverse Reaction, Intermediate, "I GOT REALLY SICK", ) Metformin (Verified Adverse Reaction, Mild, GI SYMPTOMS, 09/03/17) Current Medications Reported Home Medications Medications Dose Route/Sig Max Daily Dose Days Date Category Diovan (Valsartan) 160 Mg Tab 160 Mg PO HS 08/23/16 Reported Ginkgo Biloba ([employer]) 1 Tab Tab 1 Tab PO DAILY 08/22/16 Reported Calcium 600+D3 600-400 mg-Unit (Calcium Carbonate-Cholecalcife) 1 Tab Tab 1 Tab PO DAILY 08/22/16 Reported Aspirin Ec (Aspirin) 81 Mg Tab 81 Mg PO DAILY 08/22/16 Reported Potassium Chloride Er (Potassium Chloride) 10 Meq Tab 10 Meq PO BID 08/22/16 Reported Amlodipine Besylate 10 Mg Tab 10 Mg PO QAM 08/22/16 Reported Lipitor (Atorvastatin Calcium) 20 Mg Tab 20 Mg PO QAM 08/22/16 Reported Vital Signs Weight (Kilograms): 86.36 Height (Feet): 5 Height (Inches): 5.5 Physical Exam General Appearance: WD/WN, no apparent distress Respiratory/Chest: Respiratory effort: no dyspnea Auscultation: breath sounds normal, CTA except as noted, no wheezing Cardiovascular: Apical Impulse: not displaced Heart Auscultation: RRR, normal S1, normal S2 Assessment and Plan 77 yo with a history of polyps presenting for colonoscopy
--- NOTE | 2017-09-03 09:56 | GI REPORT ---
Patient Name: Harpreet Oenal Procedure Date: 09/03/2017 9:24 AM Date of : 1940 Admit Type: Outpatient Age: 77 Gender: Male Attending MD: Jose Varghese MD Procedure: Colonoscopy Providers: Jose Varghese MD Referring MD: Travis Mcnulty Indications: High risk colon cancer surveillance: Personal history of colonic polyps Medicines: Monitored Anesthesia Care Complications: No immediate complications. Estimated blood loss: None. Estimated Blood Loss: Estimated blood loss: none. Procedure: Pre-Anesthesia Assessment: - Pre-Anesthesia Assessment: - Prior to the procedure, a History and Physical was performed, and patient medications, allergies and sensitivities were reviewed. The patient's tolerance of previous anesthesia was reviewed. Please see [facility]obile for complete details. - The risks and benefits of the procedure and the sedation options and risks were discussed with the patient. All questions were answered and informed consent was obtained. - Patient identification and proposed procedure were verified prior to the procedure by the physician and the nurse. The procedure was verified in the pre-procedure area in the procedure room. After obtaining informed consent, the endoscope was passed carefully and meticuously under direct vision and only advanced when the lumen was clearly identified, C02 insuflation was utilized throughout the entirity of the procedure. Throughout the procedure, the patient's blood pressure, pulse, and oxygen saturations were monitored continuously. After I obtained informed consent, the scope was passed under direct vision. Throughout the procedure, the patient's blood pressure, pulse, and oxygen saturations were monitored continuously. The scope was introduced through the anus and advanced to the terminal ileum, with identification of the appendiceal orifice and IC valve. The colonoscopy was performed without difficulty. The patient tolerated the procedure well. The quality of the bowel preparation was good. Findings: A 4 mm polyp was found in the descending colon. The polyp was sessile. The polyp was removed with a cold snare. Resection and retrieval were complete. Multiple small-mouthed diverticula were found in the sigmoid colon. The terminal ileum appeared normal. Internal hemorrhoids were found during retroflexion. The exam was otherwise without abnormality on direct and retroflexion views. Impression: - One 4 mm polyp in the descending colon, removed with a cold snare. Resected and retrieved. - Diverticulosis in the sigmoid colon. - The examined portion of the ileum was normal. - Internal hemorrhoids. - The examination was otherwise normal on direct and retroflexion views. Recommendation: - Written discharge instructions were provided to the patient. - Repeat colonoscopy in 5 years for surveillance. - Return to referring physician as previously scheduled. Jose Varghese MD 09/03/2017 9:55:55 AM This report has been signed electronically. Note Initiated On: 09/03/2017 9:24 AM Number of Addenda: 0 I attest to the content of the Intraoperative Record and orders documented therein, exceptions below {[id number]}
--- NOTE | 2017-09-03 10:11 | Discharge Instructions ---
Endoscopy Patient Instructions Date / Procedure(s) Performed September 03, 2017. Colonoscopy Allergy Information Coded Allergies: Levothyroxine (Verified Allergy, Intermediate, HIVES, 09/03/17) states always became septic Codeine (Verified Adverse Reaction, Intermediate, "I GOT REALLY SICK", ) Metformin (Verified Adverse Reaction, Mild, GI SYMPTOMS, 09/03/17) Discharge Date / Findings September 03, 2017. Findings: A 4 mm polyp was found in the descending colon. The polyp was sessile. The polyp was removed with a cold snare. Resection and retrieval were complete. Multiple small-mouthed diverticula were found in the sigmoid colon. The terminal ileum appeared normal. Internal hemorrhoids were found during retroflexion. The exam was otherwise without abnormality on direct and retroflexion views. Impression: - One 4 mm polyp in the descending colon, removed with a cold snare. Resected and retrieved. - Diverticulosis in the sigmoid colon. - The examined portion of the ileum was normal. - Internal hemorrhoids. - The examination was otherwise normal on direct and retroflexion views. Recommendation: - Written discharge instructions were provided to the patient. - Repeat colonoscopy in 5 years for surveillance. - Return to referring physician as previously scheduled. Medication Instructions Stopped Medication(s): Aspirin 81mg taken on 09/02/17 Provider Instructions Activity Restrictions - No exercising or heavy lifting for 24 hours. - Do not drink alcohol the day of the procedure. - Do not drive a car or operate machinery until the day after the procedure. - Do not make any important decisions or sign important papers in 24 hours after the procedure. Following Day: - Return to full activity which may include returning to work/school. Diet Start your diet with liquids and light foods (jello, soup, juice, toast). Then eat your usual diet if not nauseated. Treatment For Common After Affects For mild abdominal pain, bloating, or excessive gas: - Rest - Eat lightly - Lie on right side Follow-Up Information Follow-up with Travis Mcnulty as scheduled Anesthesia Information What You Should Know You have had a procedure that required some medicine to reduce anxiety and discomfort. This treatment is called moderate sedation. After receiving the treatment, you may be sleepy, but you will be able to breathe on your own. The effects of the treatment may last for several hours. Follow these instructions along with Activity/Diet recommendations noted above: * Do NOT do anything where dizziness or clumsiness would be dangerous. * Rest quietly at home today, then you can be up and about tomorrow. * Have a responsible person stay with you the rest of today. * You may have had an I.V. today. If so, you may take the dressing off later today. Recommendations Call your doctor if: * Trouble breathing * Continuous vomiting for more than 24 hours * Temperature above 101 degrees * Severe abdominal pain or bloating * Pain not relieved by pain medicine ordered * There is increased drainage or redness from any incision * A large amount of rectal bleeding greater than 2-3 tablespoons. (If you had a polyp/s removed or have hemorrhoids, a small amount of blood - from the rectum is to be expected.) * You have any unanswered questions or concerns. IN THE EVENT OF A SERIOUS EMERGENCY, GO TO THE NEAREST EMERGENCY ROOM Your discharge instructions were prepared by provider Jose Varghese. Patient Instructions Signature Page Harpreet Oneal Patient (or Guardian) Signature/Date: I have read and understand the instructions given to me by my caregivers. Caregiver/RN/Doctor Signature/Date: The above-named patient and/or guardian has received patient instructions on this date. + Original Patient Signature Page (only) stays with chart. Please make copy for patient.
[2017-09-03 10:22] VITALS: BP 114/68; PULSE 64; O2SAT 94
--- NOTE | 2017-09-03 10:22 | Anesthesiology Progress Note ---
Anesthesia Post Op Note Date & Time September 03, 2017 at 10:22 Vital Signs Pain Intensity: 0 Vital Signs Past 12 Hours Date Time Temp Pulse Resp B/P (MAP) Pulse Ox O2 Delivery O2 Flow Rate FiO2 09/03/17 10:07 64 16 111/62 (78) 94 Room Air 09/03/17 10:00 94 Room Air 09/03/17 09:52 73 16 101/56 (71) 94 Nasal Cannula 2 09/03/17 09:18 37.1 73 18 142/77 (98) 94 Room Air Notes Mental Status: alert / awake / arousable, participated in evaluation Pt Amnestic to Procedure: Yes Nausea / Vomiting: adequately controlled Pain: adequately controlled Airway Patency, RR, SpO2: stable & adequate BP & HR: stable & adequate Hydration State: stable & adequate Anesthetic Complications: no major complications apparent
== END | disposition home or self-care (01) ==
LOC: C.GI 08:31
PROVIDERS: ATTEND Internal Medicine
DX: Z12.11 Encounter for screening for malignant neoplasm of colon (principal); D12.4 Benign neoplasm of descending colon; K57.30 Diverticulosis of large intestine without perforation or abscess without bleeding; K64.8 Other hemorrhoids; I10 Essential (primary) hypertension; Z86.010 Personal history of colon polyps; Z87.891 Personal history of nicotine dependence; Z88.8 Allergy status to other drugs, medicaments and biological substances; Z88.5 Allergy status to narcotic agent; Z79.82 Long term (current) use of aspirin; Z79.899 Other long term (current) drug therapy

== ENCOUNTER → 2017-11-12 | Outpatient (CLI) | payer BC ==
[~2017-11-12] MED LIST changes: -LIDOCAINE HCL 2% 2 ML VIAL (20MG/ML) ONE; -MIDAZOLAM HCL 1 MG/ML 2ML VIAL ONE; -ONDANSETRON INJ 2 MG/ML 2 ML VIAL ONE; -PROPOFOL IV EMULSION 10 MG/ML 20 ML VIAL ONE; -SODIUM CHLORIDE 0.9% 500ML 500 ML IV ONE
[2017-11-12 10:32] LABS: HEMATOCRIT 45.1 % (42-52); HEMOGLOBIN 16.3 g/dL (14.0-18.0); MEAN CELL VOLUME 89.7 fL (80-100); MEAN CORPUSCULAR HEMOGLOBIN 32.4 pg (25-34); MEAN CORPUSCULAR HGB CONC 36.1 g/dl (32-36); MEAN PLATELET VOLUME 11.9 fL (7.4-10.4); PLATELET COUNT 234 K/uL (130-400); RED CELL DISTRIBUTION WIDTH CV 13.6 % (11.5-14.5); RED CELL DISTRIBUTION WIDTH SD 44.6 fL (36.4-46.3); WHITE BLOOD COUNT 7.64 K/uL (4.8-10.8)
[2017-11-12 10:44] LABS: ALBUMIN 3.5 gm/dl (3.4-5.0); ALKALINE PHOSPHATASE 77 U/L (45-117); ALT/SGPT 24 U/L (12-78); AST/SGOT 16 U/L (15-37); BLOOD UREA NITROGEN 19 mg/dl (7-18); CALCIUM 9.2 mg/dl (8.5-10.1); CARBON DIOXIDE 28 mmol/L (21-32); CHOLESTEROL 127 mg/dl (0-200); CREATININE 0.98 mg/dl (0.60-1.40); GLUCOSE 97 mg/dl (70-99); LDL CHOLESTEROL CALCULATED 33 mg/dl; POTASSIUM 3.9 mmol/L (3.5-5.1); SODIUM 143 mmol/L (136-145); TOTAL PROTEIN 7.3 gm/dl (6.4-8.2)
== END | disposition home or self-care (01) ==
LOC: C.LABBC 08:59
PROVIDERS: ATTEND Internal Medicine
DX: E78.5 Hyperlipidemia, unspecified (principal); I10 Essential (primary) hypertension

== ENCOUNTER → 2017-12-02 | Outpatient (CLI) | payer BC ==
--- NOTE | 2017-12-02 12:11 | DIAGNOSTIC IMAGING REPORT ---
Cecille DE LA CRUZ SHLDR,HIP,KNEE FLUOROSCOPY TIME: 14 seconds. One image was submitted for review. HISTORY: Chronic right hip pain. PROCEDURE: After obtaining written informed consent, the patient was placed supine on the fluoroscopy table. A suitable site for needle insertion was marked using fluoroscopic guidance. The right hip was prepped and draped in the usual sterile fashion. 1% lidocaine was used for skin, subcutaneous and deep soft tissue anesthesia. Under intermittent fluoroscopic guidance, a 22 gauge x 3.5 inch spinal needle was inserted into the right femoral acetabular joint. 2 cc of Optiray 300 was injected to confirm the intra-articular location. This is followed by a mixture of 5cc of 0.5% bupivacaine and 2 cc of betamethasone at the request of the referring physician. The needle was then removed. There were no apparent complications. IMPRESSION: Fluoroscopic-guided right hip steroid injection without immediate complication. The above report was generated using voice recognition software. It may contain grammatical, syntax or spelling errors. Electronically signed by: Diaz Del Angel M.D. 12/02/2017 12:09 PM Dictated Date/Time: 12/02/2017 12:07 PM
== END | disposition home or self-care (01) ==
LOC: C.RADBC 10:38
PROVIDERS: ATTEND Orthopaedic Surgery
DX: M16.11 Unilateral primary osteoarthritis, right hip (principal)

== ENCOUNTER 2018-08-08 08:59 | Observation (INO) ==
[2018-08-08] MEDS ORDERED: SODIUM CHLORIDE 0.9% 500 ML IV SCH (10:30)
--- NOTE | 2018-08-08 10:34 | XRay Report ---
XR chest 1V portable CLINICAL HISTORY: Chest Pain dyspnea COMPARISON STUDY: 08/23/2016 FINDINGS: The bones soft tissues and hemidiaphragms are normal. The cardiomediastinal silhouette is n ormal. The lungs are clear. The pulmonary vasculature is normal. IMPRESSION: Negative chest. The above report was generated using voice recognition software. It may contain grammatical, syntax or spelling errors. Electronically signed by: Billy Ye M.D. 08/08/2018 10:32 AM
[2018-08-08 10:56] LABS: D Dimer 2020 ug/L FEU (0-500)
[2018-08-08 10:59] LABS: Basophils # (auto) 0.05 K/uL (0-0.2); Basophils % (auto) 0.5 %; Eosinophils % (auto) 3.1 %; Hematocrit (blood only) 45.6 % (42-52); Hemoglobin 16.1 g/dL (14.0-18.0); Immature Granulocytes # (auto) 0.02 K/uL (0.00-0.02); Immature Granulocytes % (auto) 0.2 %; Lymphocytes # (auto) 1.67 K/uL (1.2-3.4); Lymphocytes % (auto) 17.4 %; Mean Corpuscular Hgb Conc 35.3 g/dL (32-36); Mean Corpuscular Volume 88.7 fL (80-100); Mean Platelet Volume 11.7 fL (7.4-10.4); Monocytes # (auto) 0.64 K/uL (0.11-0.59); Monocytes % (auto) 6.7 %; Neutrophils % (auto) 72.1 %; Platelet Count 289 K/uL (130-400); RDW Coefficient of Variation 13.6 % (11.5-14.5); RDW Standard Deviation 44.5 fL (36.4-46.3); Red Blood Count 5.14 M/uL (4.7-6.1); White Blood Count 9.58 K/uL (4.8-10.8)
[2018-08-08 11:01] LABS: Albumin Level 3.4 gm/dl (3.4-5.0); BUN Creatinine Ratio 11.6 (10-20); Calcium 9.4 mg/dl (8.5-10.1); Creatinine Clr Calc Pharmacy 57.8 ml/min; Potassium 3.8 mmol/L (3.5-5.1)
[2018-08-08 11:04] LABS: Albumin Globulin Ratio 0.9 (0.9-2); Bilirubin,Total 0.8 mg/dl (0.2-1); Globulin 3.9 gm/dl (2.5-4.0); Total Protein 7.3 gm/dl (6.4-8.2)
[2018-08-08] MEDS ORDERED: OPTIRAY 320 125ml IV PRN (11:15)
--- NOTE | 2018-08-08 11:29 | CT Scan Report ---
CT angio chest PE protocol CT DOSE: 437.81 mGy.cm HISTORY: Chest pain. Dyspnea. PE TECHNIQUE: Multiaxial CT images of the chest were performed following the intravenous administration of contrast to evaluate the pulmonary arteries. Maximal intensity projection images were also obtaine d. A dose lowering technique was utilized adhering to the principles of ALARA. COMPARISON STUDY: 08/22/2016 FINDINGS: There is a normal caliber thoracic aorta with no evidence for dissection. There is no evide nce for pulmonary embolus. No pleural effusions. No pneumothorax. The liver and spleen are unremarkab le. No mediastinal or hilar lymphadenopathy. The central airways are patent. The lungs are clear. IMPRESSION: No evidence for pulmonary embolus. The lungs are clear. The above report was generated using voice recognition software. It may contain grammatical, syntax or spelling errors. Electronically signed by: Billy Ye M.D. 08/08/2018 11:28 AM
--- NOTE | 2018-08-08 13:39 | Ultrasound Report ---
US venous doppler LE BI HISTORY: Pain. Edema. eval for DVT COMPARISON STUDY: None. FINDINGS: There is normal compressibility, flow, and augmentation within the bilateral lower extremit y deep venous systems. There is superficial thrombophlebitis of the superficial vessels of the proxim al and mid calf extending to within 2 cm of the popliteal vessel. Length of the thrombus is approxima tely 4 cm. IMPRESSION: 1. No DVT within the right or left lower extremity. 2. Superficial thrombophlebitis involving the left calf. 3. Thrombus has an estimated length of 4 cm and extends to within 2 cm of the popliteal vein. The above report was generated using voice recognition software. It may contain grammatical, syntax or spelling errors. Electronically signed by: Billy Ye M.D. 08/08/2018 1:37 PM
--- NOTE | 2018-08-08 14:13 | History & Physical Report ---
Date of Service August 08, 2018 Assessment & Plan (1) Weakness: Pt presented with episode of generalized weakness, diaphoresis and nausea that occurred this morning after eating breakfast and lasted a few minutes. Reports at the time felt like he couldn't take in a deep breath. Denies CP, diz ziness, syncope, vomiting. In ER patient feeling well denies any symptoms. Patient is afebrile, P: 106 down to 86, R:18, BP 141/71, 96% on room air. No leukocytosis, glucose 165, negative POC troponin. D-dimer: 2019. CXR: No acute changes. CTA chest: Negative for PE. EKG: t wave inversions septal, anterior leads with ST and T wave abnormality lateral and inferior leads. 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 Hx stress echo in 2010: no inducible ischemia. Echo in 2017: EF: 60-65%, normal wall motion, no significant valvular pathology Admit tele to monitor for any arrhythmia Afebrile, no other signs or symptoms of infection at this time In ER glucose 165, unsure BSG at time of incident Atypical for ACS. Risk factors: HTN, hyperlipidemia -Monitor Vitals -Repeat EKG in am -Will trend troponin -continue aspirin and statin (2) Superficial thrombophlebitis of left leg: Pt with hx left calf discomfort/knot sensation and had out patient venous doppler LLE on 07/27/2018: Thrombus in left gastrocnemius vein. Patient was seen by PCP and he was placed on aspirin 81 mg daily. Pt reports no further calf pain and denies any other leg discomfort Today LLE Venous doppler: 1. No DVT within the right or left lower extremity. 2. Superficial thrombophlebitis involving the left calf. 3. Thrombus has an estimated length of 4 cm and extends to within 2 cm of the popliteal vein. -no significant edema/erythema/warmth or tenderness on exam of LLE -continue aspirin 81 mg -warm compresses to leg -recommend repeat u/s LLE to monitor progression. Pt has out patient appt scheduled for 08/12/18 (3) Elevated glucose: Random glucose: 165 -A1c in AM (4) HTN (hypertension): Stable -continue amlodipine, losartan (5) Dyslipidemia: -continue atorvastatin DVT Prophylaxis -Lovenox SQ Full Code as per discussion with pt Follows with Dr Mcnulty for routine care Pt was seen with Dr Zimmerman. See addendum History of Present Illness Chief Complaint: Weakness Primary Care Provider: Travis Mcnulty DO Pt is 78 y/o M with PMH HTN, dyslipidemia presented to ER with c/o episode of weakness, diaphoresis this morning. Symptoms occurred after eating breakfast. States felt some nausea at that time also and felt like he couldn't take in a full deep breath. Symptoms lasted a few minutes and self resolved. Patient denies any chest pain, dizziness, syncope, other shortness of breath with this episode. Patient is not on any diabetes medications. Patient denies any recurrent symptoms. Patient reports last week had a knot like sensation to left posterior calf. He had venous doppler LLE on 07/27/2018: Thrombus in left gastrocnemius vein. Patient was seen by PCP and he was placed on aspirin 81 mg daily. Patient states discomfort to the left calf lasted 2 days has since resolved. He denies any edema, erythema, discoloration. Denies any other lower extremity pain. Denies fever/chills, V/D/C, [place], syncope, vision changes, neck pain, CP, orthopnea, palpitations, cough, sore throat, choking, otalgia, rhinorrhea, abdominal pain, paresthesias, rashes, urinary symptoms. He denies recent surgery, recent injury, recent travel or prolonged immobilization. Pt with hx chronic abnormal EKG with diffuse T wave inversions. Hx stress echo in 2010: no inducible ischemia. Echo in 2017: EF: 60-65%, normal wall motion, no significant valvular pathology Allergies Allergy/AdvReac Type Severity Reaction Status Date / Time levothyroxine Allergy Intermediate HIVES Verified 08/08/18 09:41 codeine AdvReac Intermediate "I GOT Verified 08/08/18 09:41 REALLY SICK" metformin AdvReac Mild GI SYMPTOMS Verified 08/08/18 09:41 Home Medications Home Medications Medication Instructions Recorded Confirmed Type Ca-D3-mag dx-nutb-uyj-martha-bor 1 tab PO DAILY 08/08/18 08/08/18 History [Calcium 600-D3 Plus] amlodipine 10 mg PO DAILY 08/08/18 08/08/18 History aspirin 81 mg PO DAILY 08/08/18 08/08/18 History atorvastatin 20 mg PO DAILY 08/08/18 08/08/18 History ginkgo biloba 60 mg PO DAILY 08/08/18 08/08/18 History losartan 50 mg PO DAILY 08/08/18 08/08/18 History potassium chloride 10 meq PO BID 08/08/18 08/08/18 History Past Med/Surg History Medical History HTN (hypertension) (Chronic) Dyslipidemia (Chronic) GERD (gastroesophageal reflux disease) (Chronic) Allergic rhinitis (Chronic) Surgical History H/O colonoscopy (Chronic) Social History Preferred Language: Latvian Communication Ability: Effective Paper Pattern Inspector Required: No Beliefs That Will Affect Care: None Current Living Situation: Spouse Other Information That Helps Us Care for You: No Feels Safe at Home: Yes Safety Concerns: Feels Safe At This Time Smoking Status: Former smoker Tobacco Type: cigarettes Do You Dip or Chew Tobacco: No Smoking End Date: 1982 Second Hand Exposure: No Tobacco Cessation Education Requested by Patient: No Hx Alcohol Use: Yes Hx Substance Use: No Review of Systems Review of Systems: All systems reviewed & are unremarkable except as noted in HPI & below Physical Exam Physical Exam: General: no distress, WDWN Head: normocephalic, atraumatic Eyes: PERRL, EOM's intact, conjunctiva non-injected, anicteric ENT: normal inspection external ears, nose, mucous membranes moist Neck: supple, trachea midline Lungs: clear, no respiratory distress, no wheezing/rhonchi/rales CV: RRR, no murmur, no JVD, no pretibial edema Abd: normal BS, soft, non-tender Ext: no cyanosis or erythema, no significant edema or warmth noted, no calf tenderness to palpation, distal pulses intact, sensation to light touch intact, ROM intact Neuro: A&O x 3, no focal deficits noted, normal affect Skin: warm, dry Results & Data Vital Signs (Past 12 Hours) Vital Signs Temp Pulse Pulse Resp BP BP Pulse Ox 08/08/18 14:00 88 18 94 08/08/18 13:30 82 20 142/76 H 96 08/08/18 13:23 82 21 96 08/08/18 13:22 84 21 151/79 H 96 08/08/18 12:30 80 14 141/75 H 94 08/08/18 12:00 73 15 123/67 95 08/08/18 11:30 77 15 134/75 95 08/08/18 11:20 79 16 148/72 H 94 08/08/18 11:01 79 23 147/71 H 94 08/08/18 11:00 79 15 93 08/08/18 10:34 86 18 157/76 H 94 08/08/18 09:04 36.5 C 106 H 141/71 H 96 Laboratory Results Short CBC 08/08/18 Range/Units 09:15 WBC 9.58 (4.8-10.8) K/uL Hgb 16.1 (14.0-18.0) g/dL Hct 45.6 (42-52) % Plt Count 289 (130-400) K/uL BMP 08/08/18 09:15 Sodium 144 Potassium 3.8 Chloride 111 H Carbon Dioxide 27 BUN 13 Creatinine 1.12 Glucose 165 H Calcium 9.4 Liver Function 08/08/18 Range/Units 09:15 Total Bilirubin 0.8 (0.2-1) mg/dl AST 22 (15-37) U/L ALT 31 (12-78) U/L Alkaline Phosphatase 80 (45-117) U/L Albumin 3.4 (3.4-5.0) gm/dl Diagnostic Findings CXR: IMPRESSION: Negative chest. CTA CHEST: IMPRESSION: No evidence for pulmonary embolus. The lungs are clear. LLE VENOUS DOPPLER: IMPRESSION: 1. No DVT within the right or left lower extremity. 2. Superficial thrombophlebitis involving the left calf. 3. Thrombus has an estimated length of 4 cm and extends to within 2 cm of the popliteal vein. ECG Rate (beats per minute): 89 Rhythm: sinus rhythm Findings: + nonspecific-ST abn Supervising Physician Co-Signing Physician Notes HISTORY: Record reviewed. Patient interviewed and examined. Care coordinated with Roxanna Vasques PA-C. Please refer to her documentation for patient's history. Briefly, 78 YO male recently diagnosed with superficial phlebitis LLE who presented to ED with episode of nausea, weakness, and diaphoresis. Episode lasted only a few minutes. EXAM: General- no distress Lungs- clear to auscultation; no respiratory distress Cardiovascular- RRR; no murmur; no gallop; no JVD; no pretibial edema Abdomen- + bowel sounds, soft, nontender Extremities- no cyanosis; no calf tenderness Neuro- alert, oriented Skin- warm & dry DATA: D-dimer 2020. Random glucose 165. Troponin < 0.015. Other lab studies as noted. Chest x-ray negative. CTA chest negative for PE. Venous duplex lower extremities demonstrated superficial phlebitis left calf, no DVT. EKG performed at 0925 reviewed and demonstrated NSR at 90 / minute, possible age-indeterminate inferior infarct, ST depression and inverted / biphasic T- waves V3-5. ST / T-wave changes less pronounced compared to 08/25/16. Inferior Q-waves now more pronounced. ASSESSMENT AND PLAN: Brief episode of weakness, lightheadedness, diaphoresis this morning. Recently diagnosed superficial phlebitis left calf. No evidence of PE. Troponin normal. EKG as noted above. Check repeat troponin. Check echo. Monitor for arrhythmias. Please refer to [facility]'s documentation for discussion of other issues.
[2018-08-08] MEDS ORDERED: ACETAMINOPHEN 325 MG TAB PO PRN (15:11)
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
[2018-08-08 15:49] LABS: Magnesium 2.3 mg/dl (1.8-2.4); Troponin I < 0.015 ng/ml (0-0.045)
[2018-08-08 16:29] LABS: Partial Thromboplastin Ratio 0.9; Partial Thromboplastin Time 23.2 Seconds (21.0-31.0); Prothrombin Time 10.6 Seconds (9.0-12.0)
[2018-08-08] MEDS ORDERED: Nursing to Pharmacy Communication ONE (18:46)
[2018-08-08] MEDS ORDERED: ENOXAPARIN INJ 30 MG/0.3 ML SYR SQ SCH (21:00)
[2018-08-08] MEDS ORDERED: LOSARTAN POTASSIUM 50 MG TAB PO SCH (21:00)
[2018-08-08] MEDS: POTASSIUM CHLORIDE 10 MEQ TABCR PO SCH (21:56)
[2018-08-09 07:44] LABS: Hematocrit (blood only) 41.6 % (42-52); Hemoglobin 14.7 g/dL (14.0-18.0); Mean Corpuscular Hgb Conc 35.3 g/dL (32-36); Mean Corpuscular Volume 88.7 fL (80-100); Mean Platelet Volume 10.7 fL (7.4-10.4); Platelet Count 246 K/uL (130-400); RDW Coefficient of Variation 13.9 % (11.5-14.5); RDW Standard Deviation 44.8 fL (36.4-46.3); Red Blood Count 4.69 M/uL (4.7-6.1); White Blood Count 8.76 K/uL (4.8-10.8)
[2018-08-09] MEDS: POTASSIUM CHLORIDE 10 MEQ TABCR PO SCH (08:06)
[2018-08-09] MEDS ORDERED: ASPIRIN 81 MG ECTAB PO SCH (09:00)
[2018-08-09] MEDS ORDERED: ATORVASTATIN 20 MG TAB PO SCH (09:00)
[2018-08-09] MEDS ORDERED: LOSARTAN POTASSIUM 50 MG TAB PO SCH (09:00)
[2018-08-09] MEDS ORDERED: AMLODIPINE BESYLATE 5 MG TAB PO SCH (09:00)
--- NOTE | 2018-08-09 13:22 | Hospitalist Progress Note ---
Date of Service August 09, 2018 Assessment & Plan (1) Weakness: Transient episode of weakness day of admission. SC and PE ruled out. No arrhythmias while on telemetry. Cause of symptoms unknown. Consider outpatient cardiac event monitor if symptoms recur. (2) Abnormal EKG: EKG demonstrated previously noted anterolateral ST and T-wave changes, but deeper inferior Q-waves. Echo showed mild LVH, no wall motion abnormalities, normal LVEF. (3) HTN (hypertension): Continue amlodipine and losartan. (4) Elevated glucose: Random glucose 165. Hgb A1C drawn- results pending. (5) Superficial thrombophlebitis of left leg: Now asymptomatic. Continue aspirin. Check f/u US as outpt. (6) Dyslipidemia: Continue atorvastatin. (7) DVT prophylaxis: Received SQ enoxaparin. Ambulating. (8) Discharge planning issues: Discharge to home. Internal Medicine follow-up with Dr. Mcnulty. Subjective Recheck for episode of weakness. Patient seen in their room around 1300. Family visiting. Feels well. No recurrence of weakness. No CP or SOB. Telemetry data reviewed. NSR, no arrhythmias. Review of Systems: Constitutional- no fever. Cardiac- as noted above. Pulmonary- no cough or SOB. GI- no nausea, vomiting, diarrhea, melena, hematochezia. - no urinary symptoms. Otherwise, as noted above. Physical Exam Physical Exam: General- no distress Lungs- clear to auscultation; no respiratory distress Cardiovascular- RRR; no murmur; no gallop; no JVD; no pretibial edema Abdomen- + bowel sounds, soft, nontender Extremities- no cyanosis; no calf tenderness Neuro- alert, oriented Skin- warm & dry Results & Data Vital Signs (Past 12 Hours) Vital Signs Temp Pulse Resp BP BP Pulse Ox 08/09/18 12:05 36.8 C 74 20 124/71 93 08/09/18 06:58 36.7 C 71 20 142/73 H 95 08/09/18 04:00 36.6 C 72 18 126/71 94 Laboratory Results Laboratory Results - last 24 hr 08/08/18 08/09/18 21:04 07:33 WBC 8.76 RBC 4.69 L Hgb 14.7 Hct 41.6 L MCV 88.7 MCH 31.3 MCHC 35.3 RDW Std Deviation 44.8 RDW Coeff of Kelsey 13.9 Plt Count 246 MPV 10.7 H Troponin I < 0.015 (1) HTN (hypertension) Hypertension type: unspecified Qualified Code(s): I10 - Essential (primary) hypertension
--- NOTE | 2018-08-09 21:35 | Discharge Summary ---
Date of Service August 09, 2018 Admission HPI Per Admitting Provider Pt is 78 y/o M with PMH HTN, dyslipidemia presented to ER with c/o episode of weakness, diaphoresis this morning. Symptoms occurred after eating breakfast. States felt some nausea at that time also and felt like he couldn't take in a full deep breath. Symptoms lasted a few minutes and self resolved. Patient denies any chest pain, dizziness, syncope, other shortness of breath with this episode. Patient is not on any diabetes medications. Patient denies any recurrent symptoms. Patient reports last week had a knot like sensation to left posterior calf. He had venous doppler LLE on 07/27/2018: Thrombus in left g astrocnemius vein. Patient was seen by PCP and he was placed on aspirin 81 mg daily. Patient states discomfort to the left calf lasted 2 days has since resolved. He denies any edema, erythema, discoloration. Denies any other lower extremity pain. Denies fever/chills, V/D/C, [place], syncope, vision changes, neck pain, CP, orthopnea, palpitations, cough, sore throat, choking, otalgia, rhinorrhea, abdominal pain, paresthesias, rashes, urinary symptoms. He denies recent surgery, recent injury, recent travel or prolonged immobilization. Pt with hx chronic abnormal EKG with diffuse T wave inversions. Hx stress echo in 2011: no inducible ischemia. Echo in 2017: EF: 60-65%, normal wall motion, no significant valvular pathology. Admission Exam Per Admitting Provider General: no distress, WDWN Head: normocephalic, atraumatic Eyes: PERRL, EOM's intact, conjunctiva non-injected, anicteric ENT: normal inspection external ears, nose, mucous membranes moist Neck: supple, trachea midline Lungs: clear, no respiratory distress, no wheezing/rhonchi/rales CV: RRR, no murmur, no JVD, no pretibial edema Abd: normal BS, soft, non-tender Ext: no cyanosis or erythema, no significant edema or warmth noted, no calf tenderness to palpation, distal pulses intact, sensation to light touch intact, ROM intact Neuro: A&O x 3, no focal deficits noted, normal affect Skin: warm, dry Principal Diagnosis transient weakness Discharge Data Allergies Allergy/AdvReac Type Severity Reaction Status Date / Time levothyroxine Allergy Intermediate HIVES Verified 08/08/18 09:41 codeine AdvReac Intermediate "I GOT Verified 08/08/18 09:41 REALLY SICK" metformin AdvReac Mild GI SYMPTOMS Verified 08/08/18 09:41 Consultations 08/08/18 12:27 ED Decision to Admit Stat Ordered Studies 08/08/18 11:03 CT angio chest PE protocol Stat 08/08/18 12:11 US venous doppler LE Stat Hospital Course (1) Weakness: Transient episode of weakness day of admission. IN and PE ruled out. No arrhythmias while on telemetry. Cause of symptoms unknown. Consider outpatient cardiac event monitor if symptoms recur. (2) Abnormal EKG: EKG demonstrated previously noted anterolateral ST and T-wave changes, but deeper inferior Q-waves. Echo showed mild LVH, no wall motion abnormalities, normal LVEF. (3) HTN (hypertension): Continue amlodipine and losartan. (4) Elevated glucose: Random glucose 165. Hgb A1C drawn- results pending. (5) Superficial thrombophlebitis of left leg: Now asymptomatic. Continue aspirin. Check f/u US as outpt. (6) Dyslipidemia: Continue atorvastatin. (7) DVT prophylaxis: Received SQ enoxaparin. Ambulating. (8) Discharge planning issues: Discharged to home. Internal Medicine follow-up with Dr. Mcnulty. Total Time Total Time Spent Total Time Spent (In Minutes): 25 Discharge Plan Discharge Items Patient Disposition: Home - Self-Care Reason For Visit: WEAKNESS Discharge Diagnosis: transient weakness no sign of heart attack, irregular heart rhythm, or blood clot in lungs Condition: Good Discharge Goals: Decrease discomfort Activity: Resume your previous activity Non-emergency contact: Primary Care Provider and Hospitalist Call non-emergency contact if: you have any medication questions and your symptoms worsen Follow-up/Referrals: Travis Mcnulty DO [Primary Care Provider] - (08/13/2018 11:20 AM Alicja Davila DO (covering for Dr. Mcnulty) General Internal Medicine [facility] ) Diet: Heart Healthy Add Provider Instructions: Get follow-up ultrasound of leg on 08/12 as scheduled. Blood sugar was 165 Friday morning after you ate breakfast. Hemoglobin A1C was drawn on 08/09. Results are pending. Dr. Davila can tell you results when you see her on 08/13. OTHER INSTRUCTIONS: Seek medical attention if you have: * temperature above 101 * chest pain or trouble breathing * abdominal pain, nausea, vomiting * diarrhea, dark stools or bloody stools * pain or swelling of legs * recurrent episodes of unexplained weakness * any unanswered questions or concerns Call 911 if symptoms are severe. Call if you have any questions or problems. My cell # is [phone]. You can also reach a [facility] hospitalist on duty at [facility] 24 hours a day by calling [phone]. Prescriptions: Continued losartan 50 mg tablet 50 mg PO DAILY RF: 0 atorvastatin 20 mg tablet 20 mg PO DAILY RF: 0 potassium chloride 10 mEq tablet extended release 10 meq PO BID RF: 0 amlodipine 10 mg tablet 10 mg PO DAILY RF: 0 aspirin 81 mg tablet,chewable 81 mg PO DAILY RF: 0 ginkgo biloba 60 mg Capsule 60 mg PO DAILY RF: 0 Ca-D3-mag [id number]-phlr-jmp-martha-bor [Calcium 600-D3 Plus] 600 mg calcium- 800 unit- 50 mg Tablet 1 tab PO DAILY RF: 0 Stand-Alone Forms: My [facility] Discharge Orders: Discharge Order (Routine); Ordered 08/09/18 Ordered By: Silverio Zimmerman Admission Data Admit Date/Time: 08/08/18 14:20 Attending Provider: Silverio Zimmerman Admit Provider: Silverio Zimmerman Primary Care Provider: Travis Mcnulty Other Providers: Silverio Zimmerman Service: Telemetry Other Interventions: Discharge Summary Assessment (RN) Last Done: 08/09/18 13:37 DC Date/Time DO NOT enter until pt leaves facility: 08/09/18 13:45
[2018-08-10 06:07] LABS: Estimated Average Glucose 123 mg/dl; Hemoglobin A1C 5.9 % (4.5-5.6)
--- OUTSIDE RECORDS SUMMARY | 2018-08-10 22:36 | External Medical Summary | Continuity of Care Document ---
:1940 Author Name Ann Negron, Provider Address Unavailable Unavailable , Care Team Providers Name Role Phone Unavailable Unavailable Unavailable VICENTE RAMIREZ Unavailable Unavailable Unavailable Unavailable Unavailable Problems Hypoglycemia (251.2) (E16.2) Hypertension (401.9) (I10) Hearing loss (389.9) (H91.90) Hypothyroidism (244.9) (E03.9) Tubular adenoma of colon (211.3) (D12.6) Vitamin D deficiency (268.9) (E55.9) Hyperglycemia (790.29) (R73.9) Dysmetabolic syndrome X (277.7) (E88.81) Hyperlipidemia (272.4) (E78.5) Fatty liver (571.8) (K76.0) Functional Status Hearing loss Allergies and Adverse Reactions Synthroid TABS (Allergy) Medications hydroCHLOROthiazide 25 MG Oral Tablet; TAKE 1 TABLET DAILY. , M.D. Start: 21-Dec-2010 Refills: 0 Potassium Chloride ER 10 MEQ Oral Tablet Extended Release; TAKE 1 TABLET TWICE DAILY. , M.D. Start: 21-Dec-2010 Refills: 0 Multi-Vitamin Oral Tablet; TAKE 1 TABLET DAILY. , M.D. Start: 21-Dec-2010 Refills: 0 Ginkgo Biloba 60 MG Oral Tablet , M.D. Start: Refills: 0 Melatonin 3 MG Oral Tablet; TAKE 1 TABLET Bedtime PRN , M.D. Start: 21-Dec-2010 Refills: 0 Vitamin B Complex TABS , M.D. Refills: 0 Lipitor 20 MG Oral Tablet; TAKE 1 TABLET DAILY AT BEDTIME. , M.D. Quantity: 90 Refills: 3 Aspirin 81 MG TABS; TAKE 1 TABLET DAILY. , M.D. Start: 21-Dec-2010 Refills: 0 amLODIPine Besylate 10 MG Oral Tablet; TAKE 1 TABLET DAILY. , M.D. Start: 21-Dec-2010 Refills: 0 Procedures Procedures not documented Immunizations Tetanus-Diphtheria Toxoids Td 2-2 LF/0.5ML Intramuscular Hafsa pension On: 1992 Hepatitis A On: 2000 Pneumococcal polysaccharide vaccine, 23 valent On: 2001 Social History - Smoking Status Never smoker Plan of Treatment Planned Observations Planned Goals not documented Results No Known Results Results not documented
== END 2018-08-09 13:45 | disposition home or self-care (01) ==
LOC: ED 08:59 → 2W 08:59

== ENCOUNTER 2021-05-26 19:16 | Inpatient (IN) ==
[2021-05-26] MEDS ORDERED: METOPROLOL TARTRATE 1 MG/ML VIAL IV STA (19:39)
[2021-05-26] MEDS ORDERED: ASPIRIN 81 MG CHEW PO STA (19:39)
--- NOTE | 2021-05-26 19:54 | Emergency Department Note ---
Impression & Plan Bilateral pulmonary embolism, Substernal chest pain, Shortness of breath ED Provider Note Name: SANDI MORGAN Age: 80 Sex: M Arrives Via: Walk-In Informant: Patient, ED Provider: Andrea Sutton MD Chief Complaint: Chest Pain Impression: As per impressions above Medical Decision Makin-year-old gentleman arrives for evaluation of substernal chest pain which happened prior to arrival and is now resolved. Patient with a history of GERD, hypertension, dyslipidemia, superficial thrombophlebitis, who has for the last 2 years noted worsening shortness of breath especially with exertion. He notes he has been seen multiple times by multiple providers as well as being seen 3 weeks ago in this ER. He was recently started on some steroids for his shortness of breath but they have not seem to help. He notes this evening he was sitting at home when he developed crushing substernal chest pain that lasted about 1 hour before gradually resolving. He took aspirin 81 mg prior to arrival. Patient on examination is anxious mild distress with tachycardia and multiple PACs. He is noting his feelings palpitations. I gave him a dose of IV Lopress or which improved his palpitations and makes him feel a lot better. He continues to be hypertensive and while waiting labs Lopressor was given with mild improvement in his blood pressure. Chest x-ray is unremarkable and EKG did not show any acute concerning findings as he had T wave inversions previously. Initial labs returned with a quite elevated D-dimer while above what he had had in the past. Given his history of worsening shortness of breath it was felt reasonable to obtain a CT of the c hest. CT reveals multiple bilateral PEs with some mild right heart strain. He does not have a troponin elevation and is not actively short of breath nor hypoxic. Patient has no recent head injuries, headaches, trauma, abdominal pains, GI bleeds, black or bloody stools or any other concerning bleeding or bruising findings. I discussed the risks and benefits of heparin he is willing to proceed with anticoagulation.. Of note the patient has had symptoms for up to 2 years and I suspect this is not been PEs the entire time given his multiple other complaints throughout it. He did recently have a stress test thus with unremarkable EKG, negative troponin x2 I suspect that the chest pain he had earlier was not ACS but rather due to the PEs he is dealing with. Prior Medical Record and Triage/Nursing Notes reviewed by Me Additional history obtained from chart Differentials:Cardiac ischemia, aortic dissection, pulmonary embolism, pneumothorax, pneumonia, pericarditis, myocarditis, esophageal rupture, GERD, cholecystitis, pancreatitis, musculoskeletal, as well as other pathologies. Vital Signs: reviewed and remarkable for tachy Interventions: Lopressor 5 mg IV, labetalol 10 mg IV, aspirin 324 mg p.o., heparin bolus and drip Labs:Reviewed and remarkable for elevated D-dimer, normal troponin, hypercoagulable lab work sent Imagin view chest x-ray unremarkable as per radiology. CT PE study of the chest reveals multiple bilateral PEs with mild right heart strain as per radiology EKG:Per My Interpretation: Indication Chest Pain: Sinus Tach 110 bpm, qtc 416 with ant/lateral st depressions similar to EKG from 05/08/21 Cardiac/Tele Monitoring: Cardiac Monitoring: An Order was placed for continuous cardiac monitoring. The monitor shows a rate of 80 with a normal sinus rhythm. Consults:Dr Monique Woo Hospitalist Plan: Disposition: Hospitalization Condition: Good History of Present Illness:80-year-old gentleman arrives for evaluation of chest pain. Patient notes last few months if not years has been feeling worsening shortness of breath with exertion. He has followed with his PCP and has even been seen in the ER for this. Patient notes he had a stress test a few days ago which she reports was negative. I afternoon he was sitting with his when he developed chest pain. Substernal in nature and pressure-like. He states it felt like something was sitting on his chest. He has never had pain like that before. Did not radiate anywhere. It was not associated with nausea, vomiting, headache, syncope nor other symptoms. He states that symptoms lasted roughly an hour before gradually resolving by the time he received here. He did take 81 mg aspirin earlier in the day but has not had any other medications since the chest pain began. He does note a history of reflux but states this was not anything like that. Most recent episode reflux was about a day ago. Patient notes exertion makes worse, rest makes better. He does state that he had a superficial thrombophlebitis in his left leg many many years ago which he relates was due to having gone off aspirin for a few months. He has never had a blood clot in his lungs. He denies any previous cardiac disease other than hype rtension. He does not think he has ever had a heart catheterization. ROS: See above HPI for pertinent positives & negatives. A total of 10 systems reviewed and were otherwise negative. Past Medical History:GERD, thrombophlebitis, hypertension, dyslipidemia Past Surgical History:See Below Family History:See Below Social History:See Below Home Medications:See Below Allergies:See Below Vitals:Blood Pressure: 150/84, Pulse 125, RR 18, T 36.6C, O2 93% on RA Physical Exam: GENERAL: Patient is anxious appearing and in minimal distress. EYES: No scleral icterus, unremarkable pupils. ENT: Mucous membranes moist, no nasal congestion. NECK: No masses appreciated, nomeningismus, trachea is midline. RESPIRATORY: No dyspnea. Clear to auscultation and equal bilaterally. No wheeze, no rhonchi. CARDIOVASCULAR: Tachy, multiple irregular beats.No murmurs, rubs, gallops appreciated. GASTROINTESTINAL: Abdomen soft, non-tender, no peritonitis.Bowel sounds positive.No masses appreciated. BACK: No midline tenderness, no CVA tenderness EXTREMITIES: Normal motion all extremities, no cyanosis, no edema. NEUROLOGIC: Alert and oriented, no acute motor or sensory deficits, no focal weakness, cranial nerves grossly intact. SKIN: No rash, no jaundice, no diaphoresis. PSYCH: Appropriate GCS: 15 ED Course: Times/Reassessments: Patient comfortable throughout and heart rate and blood NH improving. His oxygen saturation remains good and he is in no significant distress. Agreeable to anticoagulation and hospitalization. Critical Care: I have personally spent 45 minutes of critical care time in the direct management of this patient. Acute bilateral PEs with right heart strain and acute chest pain requiring heparin anticoagulation. This was a life/limb threatening event. This 45 minutes is in excess of all separately billable procedures. Andrea Sutton MD Past Med/Surg History Medical History Allergic rhinitis Arrhythmia Bronchitis Difficulty swallowing DVT (deep venous thrombosis) Dyslipidemia GERD (gastroesophageal reflux disease) Hearing deficit HTN (hypertension) Osteoarthritis Trochanteric bursitis, right hip Surgical History History of bilateral cataract extraction History of colonoscopy with polypectomy History of esophagogastroduodenoscopy (EGD) History of tooth extraction Family History Other No family history of adverse response to anesthesia Social History Smoking Status: Never smoker Second Hand Exposure: No; Hx Alcohol Use: Yes Alcohol type: hard liquor Hx Substance Use: No Preferred Language: Beninese Communication Ability: Effective Auto Radio Mechanic Required: No Beliefs That Will Affect Care: None Current Living Situation: Spouse Feels Safe at Home: Yes Assistive Devices: Glasses and Hearing Aid - Bilateral Allergies Allergies Allergy/AdvReac Type Severity Reaction Status Date / Time levothyroxine Allergy Intermediate HIVES,LIPS Verified 05/26/21 23:09 SWELLING hydrocodone Allergy Unknown Verified 05/26/21 23:11 amoxicillin [From Augmentin] AdvReac Severe Diarrhea Verified 05/26/21 23:09 clavulanic acid AdvReac Severe Diarrhea Verified 05/26/21 23:09 [From Augmentin] codeine AdvReac Intermediate "I GOT Verified 05/26/21 23:09 REALLY SICK" metformin AdvReac Mild GI SYMPTOMS Verified 05/26/21 23:09 Home Meds Home Medications Medication Instructions Recorded Confirmed aspirin 81 mg chewable tablet 81 mg PO QPM 08/08/18 05/26/21 atorvastatin 20 mg tablet 20 mg PO QAM 08/08/18 05/26/21 potassium chloride 10 mEq 10 meq PO TID 08/08/18 05/26/21 tablet,extended release irbesartan 150 mg tablet 150 mg PO QAM 02/03/19 05/26/21 calcium carbonate 600 mg-vitamin 1 cap PO Q OTHER DAY 05/03/19 05/26/21 D3 5 mcg (200 unit) capsule (Calcium 600 + D(3)) azelastine 205.5 mcg (0.15 %) 1 spray INTRANASAL HS 05/26/21 05/26/21 nasal spray diltiazem HCl 240 mg 240 mg PO QPM 05/26/21 05/26/21 capsule,extended release 24 hr ferrous sulfate 325 mg (65 mg 325 mg PO Q OTHER DAY 05/26/21 05/26/21 iron) tablet (iron) fluticasone propionate 50 2 spray INTRANASAL QAM 05/26/21 05/26/21 mcg/actuation nasal spray,suspension multivitamin 1 tab PO .3-4XSWEEK 02/12/22 02/12/22 prednisone 10 mg tablet 5 mg PO .QAFTERNOON 05/26/21 05/26/21 prednisone 10 mg tablet 10 mg PO QAM 05/26/21 05/26/21 testosterone 2 mg/24 hour 1 patch TOPICAL QPM 05/26/21 05/26/21 transdermal 24 hour patch (Androderm) triamterene 37.5 0.5 tab PO DAILY 05/26/21 05/26/21 mg-hydrochlorothiazide 25 mg tablet Results & Data (ED) Vital Signs Vital Signs - 24 hr 05/26/21 19:23 05/26/21 19:31 05/26/21 19:40 Temperature 36.6 C Temperature Source Temporal Artery Scan Pulse Rate 125 H 112 H Pulse Rate from SpO2 Sensor 106 H Respiratory Rate 18 17 Respiratory Effort / Characteristics Non-Labored Spontaneous Respiratory Depth Normal Respiratory Pattern Regular Blood Pressure 150/84 H 180/114 H Blood Pressure Mean 106 136 Blood Pressure Position Sitting Pulse Oximetry 93 97 Oxygen Delivery Method Room Air Sepsis Recent Fever Within 48 Hours No Sepsis New/Unexplained Change in Mental Status N/A Sepsis Action Taken by Nursing No Action Required 05/26/21 19:50 05/26/21 20:00 05/26/21 20:01 Temperature Temperature Source Pulse Rate 103 H 86 Pulse Rate from SpO2 Sensor 96 H 86 Respiratory Rate 21 23 Respiratory Effort / Characteristics Non-Labored Spontaneous Respiratory Depth Normal Respiratory Pattern Blood Pressure Blood Pressure Mean Blood Pressure Position Pulse Oximetry 96 95 Oxygen Delivery Method Room Air Sepsis Recent Fever Within 48 Hours Sepsis New/Unexplained Change in Mental Status Sepsis Action Taken by Nursing 05/26/21 20:10 05/26/21 20:20 05/26/21 20:30 Temperature Temperature Source Pulse Rate 81 77 79 Pulse Rate from SpO2 Sensor 81 76 75 Respiratory Rate 20 20 19 Respiratory Effort / Characteristics Respiratory Depth Respiratory Pattern Blood Pressure 195/106 H Blood Pressure Mean 135 Blood Pressure Position Pulse Oximetry 97 95 96 Oxygen Delivery Method Sepsis Recent Fever Within 48 Hours Sepsis New/Unexplained Change in Mental Status Sepsis Action Taken by Nursing 05/26/21 20:48 05/26/21 21:09 05/26/21 21:15 Temperature Temperature Source Pulse Rate 80 78 80 Pulse Rate from SpO2 Sensor 80 80 77 Respiratory Rate 23 18 18 Respiratory Effort / Characteristics Respiratory Depth Respiratory Pattern Blood Pressure 174/95 H 164/96 H Blood Pressure Mean 121 118 Blood Pressure Position Pulse Oximetry 95 95 95 Oxygen Delivery Method Room Air Sepsis Recent Fever Within 48 Hours Sepsis New/Unexplained Change in Mental Status Sepsis Action Taken by Nursing 05/26/21 21:30 05/26/21 22:00 05/26/21 22:30 Temperature Temperature Source Pulse Rate 75 79 Pulse Rate from SpO2 Sensor 75 78 77 Respiratory Rate 18 18 Respiratory Effort / Characteristics Respiratory Depth Respiratory Pattern Blood Pressure 175/95 H 186/100 H Blood Pressure Mean 121 128 Blood Pressure Position Pulse Oximetry 95 95 93 Oxygen Delivery Method Sepsis Recent Fever Within 48 Hours Sepsis New/Unexplained Change in Mental Status Sepsis Action Taken by Nursing 05/26/21 22:35 05/26/21 23:00 05/26/21 23:13 Temperature Temperature Source Pulse Rate 86 82 83 Pulse Rate from SpO2 Sensor 87 82 80 Respiratory Rate 31 H 25 H 15 Respiratory Effort / Characteristics Respiratory Depth Respiratory Pattern Blood Pressure 173/87 H 170/90 H Blood Pressure Mean 115 116 Blood Pressure Position Pulse Oximetry 94 94 93 Oxygen Delivery Method Sepsis Recent Fever Within 48 Hours Sepsis New/Unexplained Change in Mental Status Sepsis Action Taken by Nursing 05/26/21 23:30 Temperature Temperature Source Pulse Rate 80 Pulse Rate from SpO2 Sensor Respiratory Rate 24 Respiratory Effort / Characteristics Respiratory Depth Respiratory Pattern Blood Pressure 151/93 H Blood Pressure Mean 112 Blood Pressure Position Pulse Oximetry Oxygen Delivery Method Sepsis Recent Fever Within 48 Hours Sepsis New/Unexplained Change in Mental Status Sepsis Action Taken by Nursing Laboratory Data Result diagrams: 05/26/21 19:30 05/26/21 19:30 Lab Results 05/26/21 05/26/21 05/26/21 Range/Units 19:30 19:30 19:30 WBC 14.86 H (4.8-10.8) K/uL RBC 4.81 (4.7-6.1) M/uL Hgb 14.5 (14.0-18.0) g/dL Hct 44.5 (42-52) % MCV 92.5 (80-100) fL MCH 30.1 (25-34) pg MCHC 32.6 (32-36) g/dL RDW Std Deviation 55.8 H (36.4-46.3) fL RDW Coeff of Kelsey 16.5 H (11.5-14.5) % Plt Count 225 (130-400) K/uL MPV 11.4 H (7.4-10.4) fL Immature Gran % (Auto) 0.4 % Neut % (Auto) 84.9 % Lymph % (Auto) 7.7 % Jasper % (Auto) 6.8 % Eos % (Auto) 0.1 % Baso % (Auto) 0.1 % Neut # (Auto) 12.61 H (1.4-6.5) K/uL Lymph # (Auto) 1.15 L (1.2-3.4) K/uL Jasper # (Auto) 1.01 H (0.11-0.59) K/uL Eos # (Auto) 0.02 (0-0.5) K/uL Baso # (Auto) 0.01 (0-0.2) K/uL Immature Gran # (Auto) 0.06 H (0.00-0.02) K/uL PT (9.0-12.0) Seconds INR (0.9-1.1) APTT (21.0-31.0) Seconds PTT Ratio D-Dimer 4620 H* (0-500) ug/L FEU Sodium 138 (136-145) mmol/L Potassium 4.3 (3.5-5.1) mmol/L Chloride 103 (98-107) mmol/L Carbon Dioxide 25 (21-32) mmol/L Anion Gap 10 (3-11) BUN 29 H (6-23) mg/dl Creatinine 1.15 (0.6-1.4) mg/dl Est Cr Clr Drug Dosing 56.4 ml/min Est GFR ( Amer) 69.8 ml/min Est GFR (Non-Af Amer) 60.2 ml/min BUN/Creatinine Ratio 25.2 H (10-20) Glucose 187 H (70-99(Fasting)) mg/dl Calcium 9.2 (8.5-10.1) mg/dl Magnesium (1.7-2.4) mg/dl Total Bilirubin 0.4 (0.2-1.0) mg/dl AST 18 (13-39) U/L ALT 29 (7-52) U/L Alkaline Phosphatase 63 (34-104) U/L Troponin I < 0.03 (0-0.04) ng/ml Total Protein 6.5 (6.0-8.3) gm/dl Albumin 3.7 (3.4-5.0) gm/dl Globulin 2.8 (2.5-4.0) gm/dl Albumin/Globulin Ratio 1.3 (0.9-2) Lipase 132 H (11-82) U/L Procalcitonin (0-0.5) ng/ml SARS-CoV-2, RNA, NAAT (NEGATIVE) 05/26/21 05/26/21 05/26/21 Range/Units 19:30 19:30 19:30 WBC (4.8-10.8) K/uL RBC (4.7-6.1) M/uL Hgb (14.0-18.0) g/dL Hct (42-52) % MCV (80-100) fL MCH (25-34) pg MCHC (32-36) g/dL RDW Std Deviation (36.4-46.3) fL RDW Coeff of Kelsey (11.5-14.5) % Plt Count (130-400) K/uL MPV (7.4-10.4) fL Immature Gran % (Auto) % Neut % (Auto) % Lymph % (Auto) % Jasper % (Auto) % Eos % (Auto) % Baso % (Auto) % Neut # (Auto) (1.4-6.5) K/uL Lymph # (Auto) (1.2-3.4) K/uL Jasper # (Auto) (0.11-0.59) K/uL Eos # (Auto) (0-0.5) K/uL Baso # (Auto) (0-0.2) K/uL Immature Gran # (Auto) (0.00-0.02) K/uL PT 9.7 (9.0-12.0) Seconds INR 1.0 (0.9-1.1) APTT 21.4 (21.0-31.0) Seconds PTT Ratio 0.8 D-Dimer (0-500) ug/L FEU Sodium (136-145) mmol/L Potassium (3.5-5.1) mmol/L Chloride (98-107) mmol/L Carbon Dioxide (21-32) mmol/L Anion Gap (3-11) BUN (6-23) mg/dl Creatinine (0.6-1.4) mg/dl Est Cr Clr Drug Dosing ml/min Est GFR ( Amer) ml/min Est GFR (Non-Af Amer) ml/min BUN/Creatinine Ratio (10-20) Glucose (70-99(Fasting)) mg/dl Calcium (8.5-10.1) mg/dl Magnesium 2.2 (1.7-2.4) mg/dl Total Bilirubin (0.2-1.0) mg/dl AST (13-39) U/L ALT (7-52) U/L Alkaline Phosphatase (34-104) U/L Troponin I (0-0.04) ng/ml Total Protein (6.0-8.3) gm/dl Albumin (3.4-5.0) gm/dl Globulin (2.5-4.0) gm/dl Albumin/Globulin Ratio (0.9-2) Lipase (11-82) U/L Procalcitonin < 0.05 (0-0.5) ng/ml SARS-CoV-2, RNA, NAAT (NEGATIVE) 05/26/21 05/26/21 Range/Units 22:41 22:45 WBC (4.8-10.8) K/uL RBC (4.7-6.1) M/uL Hgb (14.0-18.0) g/dL Hct (42-52) % MCV (80-100) fL MCH (25-34) pg MCHC (32-36) g/dL RDW Std Deviation (36.4-46.3) fL RDW Coeff of Kelsey (11.5-14.5) % Plt Count (130-400) K/uL MPV (7.4-10.4) fL Immature Gran % (Auto) % Neut % (Auto) % Lymph % (Auto) % Jasper % (Auto) % Eos % (Auto) % Baso % (Auto) % Neut # (Auto) (1.4-6.5) K/uL Lymph # (Auto) (1.2-3.4) K/uL Jasper # (Auto) (0.11-0.59) K/uL Eos # (Auto) (0-0.5) K/uL Baso # (Auto) (0-0.2) K/uL Immature Gran # (Auto) (0.00-0.02) K/uL PT (9.0-12.0) Seconds INR (0.9-1.1) APTT (21.0-31.0) Seconds PTT Ratio D-Dimer (0-500) ug/L FEU Sodium (136-145) mmol/L Potassium (3.5-5.1) mmol/L Chloride (98-107) mmol/L Carbon Dioxide (21-32) mmol/L Anion Gap (3-11) BUN (6-23) mg/dl Creatinine (0.6-1.4) mg/dl Est Cr Clr Drug Dosing ml/min Est GFR ( Amer) ml/min Est GFR (Non-Af Amer) ml/min BUN/Creatinine Ratio (10-20) Glucose (70-99(Fasting)) mg/dl Calcium (8.5-10.1) mg/dl Magnesium (1.7-2.4) mg/dl Total Bilirubin (0.2-1.0) mg/dl AST (13-39) U/L ALT (7-52) U/L Alkaline Phosphatase (34-104) U/L Troponin I < 0.03 (0-0.04) ng/ml Total Protein (6.0-8.3) gm/dl Albumin (3.4-5.0) gm/dl Globulin (2.5-4.0) gm/dl Albumin/Globulin Ratio (0.9-2) Lipase (11-82) U/L Procalcitonin (0-0.5) ng/ml SARS-CoV-2, RNA, NAAT NEGATIVE (NEGATIVE) Administered Medications Heparin Sodium/Dextrose (Heparin Sodium/Dextrose) 25,000 units in 500 mls @ 28 mls/hr IV .[id number] [facility]; Protocol Stop: 06/25/21 21:59 Last Admin: 05/26/21 23:12 Dose: 1,400 units/hr, 28 mls/hr Documented by: [id number] Cosigned by: [id number] Discontinued Medications Aspirin (Aspirin 81 Mg Chew) 324 mg PO NOW STA Stop: 05/26/21 19:40 Last Admin: 05/26/21 19:52 Dose: 324 mg Documented by: [id number] Heparin Sodium (Porcine) (Heparin Sod (Porcine) 1000 Unit/Ml) 1 units IV NOW ONE Stop: 05/26/21 21:59 Last Admin: 05/26/21 23:12 Dose: 6,000 units Documented by: [id number] Cosigned by: [id number] Heparin Sodium/Dextrose (Heparin Iv Adult Wt-Based Standard With Bolus Protocol) 1 ea IV NOW STA; Protocol Stop: 05/26/21 21:44 Last Admin: 05/26/21 23:13 Dose: Not Given Documented by: [id number] Ioversol (Optiray 320 125ml) 120 ml IV ONCE ONE Stop: 05/26/21 21:03 Last Admin: 05/26/21 21:04 Dose: 120 ml Documented by: [id number] Labetalol HCl (Labetalol Hcl Iv 5 Mg/Ml 20ml) 10 mg IV NOW STA Stop: 05/26/21 20:41 Last Admin: 05/26/21 20:49 Dose: 10 mg Documented by: [id number] Cosigned by: [id number] Metoprolol Tartrate (Metoprolol Tartrate 1 Mg/Ml Vial) 5 mg IV NOW STA Stop: 05/26/21 19:40 Last Admin: 05/26/21 19:51 Dose: 5 mg Documented by: [id number] Imaging Data Radiologist's Impression: Chest X-Ray 05/26/21 19:40 XR chest 1V portable HISTORY: Atypical Chest Pain COMPARISON: Chest 05/08/2021. FINDINGS: No pneumothorax. No pleural effusions. There is a moderate to large hiatus hernia, unchanged. The heart remains mildly enlarged. No new focal lung consolidations to suggest pneumonia. No evidence for pulmonary edema. IMPRESSION: No significant change compared to the prior study. No acute process. Stable hiatus hernia. ACT 112: Negative or not required by law. Electronically signed by: Asaf Eason M.D. 05/26/2021 8:12 PM Chest CTA 05/26/21 20:40 CHEST CTA for PULMONARY ARTERIES CT DOSE: 651.49 mGy.cm HISTORY: Mid chest pain. Chest pressure. Shortness of breath. TECHNIQUE: Multiaxial CT images of the chest were performed following the in travenous administration of contrast to evaluate the pulmonary arteries. Maximal intensity projection images were also obtained. A dose lowering technique was utilized adhering to the principles of ALARA. COMPARISON STUDY: Chest 05/26/2021. Chest CTA 08/08/2018. FINDINGS: Limited views the upper abdomen demonstrate a normal liver, spleen, and adrenal glands. There is a moderate to large hiatus hernia, unchanged. No pleural or pericardial effusions. The thyroid gland enhances normally. There is mild bilateral gynecomastia. The heart is mildly enlarged. No mediastinal or hilar lymphadenopathy. Normal caliber esophagus. Flattening of the interv entricular septum with slight increase in size of the right ventricle consistent with mild right-sided heart strain. Normal caliber thoracic aorta with no evidence for dissection. Multiple scattered filling defects seen within the majority of the segmental and subsegmental pulmonary arteries as well as the right lobar pulmonary arteries consistent with pulmonary emboli. No fractures within the visualized osseous structures. No pneumothorax. The central airways are patent. A punctate calcified granuloma within the lingula. There are few calcified left hilar lymph nodes. No focal lung consolidations. IMPRESSION: 1. Extensive bilateral pulmonary emboli with mild right-sided heart strain. 2. No focal lung consolidations to suggest pulmonary infarcts or a pneumonia. 3. Moderate to large hiatus hernia, unchanged. ACT 112: Negative or not required by law. Electronically signed by: Asaf Eason M.D. 05/26/2021 9:37 PM Discharge Plan Visit Data Chief Complaint: Cardiac Assessment Stated Complaint: CHEST PAIN, SOB ED Provider: Andrea Sutton Discharge Problem: Bilateral pulmonary embolism, Substernal chest pain, Shortness of breath Forms Stand Alone Forms: [facility] [employer] Prescriptions Prescriptions: No Action atorvastatin 20 mg tablet 20 mg PO QAM RF: 0 potassium chloride 10 mEq tablet extended release 10 meq PO TID RF: 0 aspirin 81 mg tablet,chewable 81 mg PO QPM RF: 0 irbesartan 150 mg Tablet 150 mg PO QAM RF: 0 Calcium 600 + D(3) 600 mg calcium- 200 unit Capsule 1 cap PO Q OTHER DAY RF: 0 multivitamin Tablet 1 tab PO .3-4XSWEEK RF: 0 prednisone 10 mg tablet 10 mg PO QAM RF: 0 prednisone 10 mg tablet 5 mg PO .QAFTERNOON RF: 0 diltiazem HCl 240 mg capsule,extended release 24hr 240 mg PO QPM RF: 0 ferrous sulfate [iron] 325 mg (65 mg iron) Tablet 325 mg PO Q OTHER DAY RF: 0 triamterene-hydrochlorothiazid 37.5-25 mg tablet 0.5 tab PO DAILY RF: 0 fluticasone propionate 50 mcg/actuation spray,suspension 2 spray INTRANASAL QAM RF: 0 azelastine 205.5 mcg (0.15 %) spray,non-aerosol 1 spray INTRANASAL HS RF: 0 Androderm 2 mg/24 hour patch 24 hour 1 patch topical QPM RF: 0 Referrals Referrals: Lana Eden MD [Primary Care Provider] -
[2021-05-26 19:55] LABS: Basophils # (auto) 0.01 K/uL (0-0.2); Basophils % (auto) 0.1 %; Eosinophils # (auto) 0.02 K/uL (0-0.5); Eosinophils % (auto) 0.1 %; Hematocrit (blood only) 44.5 % (42-52); Hemoglobin 14.5 g/dL (14.0-18.0); Immature Granulocytes # (auto) 0.06 K/uL (0.00-0.02); Immature Granulocytes % (auto) 0.4 %; Lymphocytes # (auto) 1.15 K/uL (1.2-3.4); Lymphocytes % (auto) 7.7 %; Mean Corpuscular Hemoglobin 30.1 pg (25-34); Mean Corpuscular Hgb Conc 32.6 g/dL (32-36); Mean Corpuscular Volume 92.5 fL (80-100); Mean Platelet Volume 11.4 fL (7.4-10.4); Monocytes # (auto) 1.01 K/uL (0.11-0.59); Monocytes % (auto) 6.8 %; Neutrophils # (auto) 12.61 K/uL (1.4-6.5); Neutrophils % (auto) 84.9 %; Platelet Count 225 K/uL (130-400); RDW Coefficient of Variation 16.5 % (11.5-14.5); RDW Standard Deviation 55.8 fL (36.4-46.3); Red Blood Count 4.81 M/uL (4.7-6.1); White Blood Count 14.86 K/uL (4.8-10.8)
[2021-05-26 20:08] LABS: Alanine Aminotransferase 29 U/L (7-52); Albumin Globulin Ratio 1.3 (0.9-2); Albumin Level 3.7 gm/dl (3.4-5.0); Alkaline Phosphatase 63 U/L (34-104); Anion Gap 10 (3-11); Aspartate Aminotransferase 18 U/L (13-39); BUN Creatinine Ratio 25.2 (10-20); Bilirubin,Total 0.4 mg/dl (0.2-1.0); Blood Urea Nitrogen 29 mg/dl (6-23); Calcium 9.2 mg/dl (8.5-10.1); Carbon Dioxide 25 mmol/L (21-32); Chloride 103 mmol/L (98-107); Creatinine Clr Calc Pharmacy 56.4 ml/min; Est GFR (African American) 69.8 ml/min; Est GFR (Non-African American) 60.2 ml/min; Globulin 2.8 gm/dl (2.5-4.0); Glucose 187 mg/dl (70-99(Fasting)); Lipase 132 U/L (11-82); Potassium 4.3 mmol/L (3.5-5.1); Sodium 138 mmol/L (136-145); Total Protein 6.5 gm/dl (6.0-8.3); Troponin I < 0.03 ng/ml (0-0.04)
--- NOTE | 2021-05-26 20:13 | XRay Report ---
XR chest 1V portable HISTORY: Atypical Chest Pain COMPARISON: Chest 05/08/2021. FINDINGS: No pneumothorax. No pleural effusions. There is a moderate to large hiatus hernia, unchange d. The heart remains mildly enlarged. No new focal lung consolidations to suggest pneumonia. No evide nce for pulmonary edema. IMPRESSION: No significant change compared to the prior study. No acute process. Stable hiatus hernia. ACT 112: Negative or not required by law. Electronically signed by: Asaf Eason M.D. 05/26/2021 8:12 PM
[2021-05-26 20:19] LABS: D Dimer 4620 ug/L FEU (0-500)
[2021-05-26] MEDS ORDERED: LABETALOL HCL IV 5 MG/ML 20ML IV STA (20:40)
[2021-05-26] MEDS ORDERED: OPTIRAY 320 125ml IV ONE (21:02)
--- NOTE | 2021-05-26 21:39 | CT Scan Report ---
CHEST CTA for PULMONARY ARTERIES CT DOSE: 651.49 mGy.cm HISTORY: Mid chest pain. Chest pressure. Shortness of breath. TECHNIQUE: Multiaxial CT images of the chest were performed following the intravenous administration of contrast to evaluate the pulmonary arteries. Maximal intensity projection images were also obtaine d. A dose lowering technique was utilized adhering to the principles of ALARA. COMPARISON STUDY: Chest 05/26/2021. Chest CTA 08/08/2018. FINDINGS: Limited views the upper abdomen demonstrate a normal liver, spleen, and adrenal glands. The re is a moderate to large hiatus hernia, unchanged. No pleural or pericardial effusions. The thyroid gland enhances normally. There is mild bilateral gynecomastia. The heart is mildly enlarged. No media stinal or hilar lymphadenopathy. Normal caliber esophagus. Flattening of the interventricular septum with slight increase in size of the right ventricle consistent with mild right-sided heart strain. No rmal caliber thoracic aorta with no evidence for dissection. Multiple scattered filling defects seen within the majority of the segmental and subsegmental pulmonary arteries as well as the right lobar p ulmonary arteries consistent with pulmonary emboli. No fractures within the visualized osseous struct ures. No pneumothorax. The central airways are patent. A punctate calcified granuloma within the ling xavier. There are few calcified left hilar lymph nodes. No focal lung consolidations. IMPRESSION: 1. Extensive bilateral pulmonary emboli with mild right-sided heart strain. 2. No focal lung consolidations to suggest pulmonary infarcts or a pneumonia. 3. Moderate to large hiatus hernia, unchanged. ACT 112: Negative or not required by law. Electronically signed by: Asaf Eason M.D. 05/26/2021 9:37 PM
[2021-05-26] MEDS ORDERED: Heparin IV Adult Wt-Based Standard WITH Bolus Protocol IV STA (21:43)
[2021-05-26 21:48] LABS: Partial Thromboplastin Ratio 0.8; Partial Thromboplastin Time 21.4 Seconds (21.0-31.0); Prothrombin Time 9.7 Seconds (9.0-12.0)
[2021-05-26] MEDS ORDERED: HEPARIN SOD (PORCINE) 1000 UNIT/ML IV ONE (21:58)
[2021-05-26] MEDS: HEPARIN SODIUM/DEXTROSE 25,000 UNITS/500 ML BAG IV SCH (23:12)
--- NOTE | 2021-05-26 23:22 | History & Physical Report ---
Date of Service May 26, 2021 Assessment & Plan (1) Bilateral pulmonary embolism: Plan: History superficial leg DVT on aspirin from 2018 Patient predisposed by decreased mobility the last 2 years for presumptive post COVID-19 illness and testosterone patch Rule out LE clot as source pulmonary emboli PSVT/VT as per records, hypertension, elevated hyperlipidemia on statin Rx prediabetes, likely DM2 given hemoglobin A1c of 6.19 April 2021 possible PMR on trial steroid Rx past tobacco abuse. PCU IV Heparin Prudent to stop testosterone patch Defer discussion regarding home anticoagulation between patient and AM provider. Patient has expressed interest in NOAC tx. DC home aspirin treatment for history of superficial clot Titrate home BP meds Recheck hemoglobin A1c, patient hesitant to receive inpatient insulin coverage for now unless repeat hemoglobin A1c consistently shows hemoglobin A1c greater than 6.4 consistent with DM diagnosis DVT prophylaxis. IV Heparin Full code Text document was generated using [employer] voice recognition software. It may contain grammatical or spelling errors. Kindly contact undersigned for clarification of any documentation item in question. History of Present Illness Chief Complaint: Chest pain Primary Care Provider: Lana Eden MD History obtained from patient, family, and records. 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 Last confinement 2018 for transient weakness. Patient has had shortness of breath worse on exertion following a bad respiratory tract infection from February 2019. Patient suspects he may have had undiagnosed COVID-19 infection. Patient not active as usual. Outpatient neurology work-up for possible myasthenia gravis. Some improvement in energy levels after topical testosterone initiated by PCP last November 2020 with borderline low serum testosterone levels. 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 Outpatient nuclear stress test from a few days ago negative for ischemia. Home Cardizem dose increased to 300 mg daily recommended by PCP given elevated BP and ectopic beats during study as per documentation. This afternoon, patient noted sudden onset substernal pain with shortness of breath. Nonpleuritic. No cough symptoms. No unusual leg swelling. No unusual weight loss. At the ER, IV heparin started for pulmonary embolism. Prior history of LLE gastrocnemius vein thrombosis for which aspirin was recomme nded by PCP. No known family history of blood clots. 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 Allergies Allergy/AdvReac Type Severity Reaction Status Date / Time levothyroxine Allergy Intermediate HIVES,LIPS Verified 05/26/21 23:09 SWELLING hydrocodone Allergy Unknown Verified 05/26/21 23:11 amoxicillin [From Augmentin] AdvReac Severe Diarrhea Verified 05/26/21 23:09 clavulanic acid AdvReac Severe Diarrhea Verified 05/26/21 23:09 [From Augmentin] codeine AdvReac Intermediate "I GOT Verified 05/26/21 23:09 REALLY SICK" metformin AdvReac Mild GI SYMPTOMS Verified 05/26/21 23:09 Home Medications Medication Instructions Recorded Confirmed Type aspirin 81 mg chewable tablet 81 mg PO QPM 08/08/18 05/26/21 History atorvastatin 20 mg tablet 20 mg PO QAM 08/08/18 05/26/21 History potassium chloride 10 mEq 10 meq PO TID 08/08/18 05/26/21 History tablet,extended release irbesartan 150 mg tablet 150 mg PO QA 02/03/19 05/26/21 History calcium carbonate 600 mg-vitamin 1 cap PO Q OTHER DAY 05/03/19 05/26/21 History D3 5 mcg (200 unit) capsule (Calcium 600 + D(3)) azelastine 205.5 mcg (0.15 %) 1 spray INTRANASAL 05/26/21 05/26/21 History nasal spray diltiazem HCl 240 mg 240 mg PO QPM 05/26/21 05/26/21 History capsule,extended release 24 hr ferrous sulfate 325 mg (65 mg 325 mg PO Q OTHER DAY 05/26/21 05/26/21 History iron) tablet (iron) fluticasone propionate 50 2 spray INTRANASAL QA 05/26/21 05/26/21 History mcg/actuation nasal spray,suspension multivitamin 1 tab PO .3-4XSWEEK 05/26/21 05/26/21 History prednisone 10 mg tablet 5 mg PO .QAFTERNOON 05/26/21 05/26/21 History prednisone 10 mg tablet 10 mg PO [facility] 05/26/21 05/26/21 History testosterone 2 mg/24 hour 1 patch TOPICAL QPM 05/26/21 05/26/21 History transdermal 24 hour patch (Androderm) triamterene 37.5 0.5 tab PO DAILY 05/26/21 05/26/21 History mg-hydrochlorothiazide 25 mg tablet Past Med/Surg History Medical History Allergic rhinitis Arrhythmia Bronchitis Difficulty swallowing DVT (deep venous thrombosis) Dyslipidemia GERD (gastroesophageal reflux disease) Hearing deficit HTN (hypertension) Osteoarthritis Trochanteric bursitis, right hip Surgical History History of bilateral cataract extraction History of colonoscopy with polypectomy History of esophagogastroduodenoscopy (EGD) History of tooth extraction Family History Other No family history of adverse response to anesthesia Social History Smoking Status: Former smoker Second Hand Exposure: No; Do You Dip or Chew Tobacco: No; Hx Alcohol Use: Yes Alcohol type: hard liquor Hx Substance Use: No Preferred Language: Maltese Communication Ability: Effective Teacher Of The Handicapped Required: No Beliefs That Will Affect Care: None Current Living Situation: Spouse Other Information That Helps Us Care for You: No Feels Safe at Home: Yes Safety Concerns: Feels Safe At This Time Assistive Devices: None Review of Systems Review of Systems: As per HPI, all 10 systems reviewed, all other ROS negative Physical Exam Physical Exam: GENERAL: Comfortable, slightly anxious, obese, pleasant, no respiratory distress SKIN: Normal color, warm HEENT: [place] palpebral conjunctivae, no ptosis, moist buccal mucosa NECK : Supple, short neck, no tenderness CHEST : CTA, no tenderness HEART : RRR, no obvious murmurs ABDOMEN: Some distention, nontender EXTREMITIES : Minimal LE swelling, no LE tenderness, no other conspicuous deformities noted NEUROLOGIC : Coherent, no facial asymmetry, no other gross focality Results & Data Results & Data ([facility]) Vital Signs (Past 12 Hours) Vital Signs Temp Pulse Resp BP Pulse Ox 05/26/21 21:15 80 18 164/96 H 95 05/26/21 21:09 78 18 95 05/26/21 20:48 80 23 174/95 H 95 05/26/21 20:30 79 19 195/106 H 96 05/26/21 20:20 77 20 95 05/26/21 20:10 81 20 97 05/26/21 20:00 86 23 95 05/26/21 19:50 103 H 21 96 05/26/21 19:40 112 H 17 97 05/26/21 19:31 180/114 H 05/26/21 19:23 36.6 C 125 H 18 150/84 H 93 Laboratory Results Laboratory Results WBC 14.86 K/uL (4.8-10.8) H 05/26/21 19:30 RBC 4.81 M/uL (4.7-6.1) 05/26/21 19:30 Hgb 14.5 g/dL (14.0-18.0) 05/26/21 19:30 Hct 44.5 % (42-52) 05/26/21 19:30 MCV 92.5 fL (80-100) 05/26/21 19:30 MCH 30.1 pg (25-34) 05/26/21 19:30 MCHC 32.6 g/dL (32-36) 05/26/21 19:30 RDW Std Deviation 55.8 fL (36.4-46.3) H 05/26/21 19:30 RDW Coeff of Kelsey 16.5 % (11.5-14.5) H 05/26/21 19:30 Plt Count 225 K/uL (130-400) 05/26/21 19:30 MPV 11.4 fL (7.4-10.4) H 05/26/21 19:30 Immature Gran % (Auto) 0.4 % 05/26/21 19:30 Neut % (Auto) 84.9 % 05/26/21 19:30 Lymph % (Auto) 7.7 % 05/26/21 19:30 [place] % (Auto) 6.8 % 05/26/21 19:30 Eos % (Auto) 0.1 % 05/26/21 19:30 Baso % (Auto) 0.1 % 05/26/21 19:30 Neut # (Auto) 12.61 K/uL (1.4-6.5) H 05/26/21 19:30 Lymph # (Auto) 1.15 K/uL (1.2-3.4) L 05/26/21 19:30 [place] # (Auto) 1.01 K/uL (0.11-0.59) H 05/26/21 19:30 Eos # (Auto) 0.02 K/uL (0-0.5) 05/26/21 19:30 Baso # (Auto) 0.01 K/uL (0-0.2) 05/26/21 19:30 Immature Gran # (Auto) 0.06 K/uL (0.00-0.02) H 05/26/21 19:30 PT 9.7 Seconds (9.0-12.0) 05/26/21:30 INR 1.0 (0.9-1.1) 05/26/21 19:30 APTT 21.4 Seconds (21.0-31.0) 05/26/21 19:30 PTT Ratio 0.8 05/26/21: D-Dimer 4620 ug/L FEU (0-500) H* 05/26/21 19:30 Sodium 138 mmol/L (136-145) 05/26/21 19:30 Potassium 4.3 mmol/L (3.5-5.1) 05/26/21: Chloride 103 mmol/L (98-107) 05/26/21 19: Carbon Dioxide 25 mmol/L (21-32) 05/26/21 19:30 Anion Gap 10 (3-11) 05/26/21 19:30 BUN 29 mg/dl (6-23) H 05/26/21 19:30 Creatinine 1.15 mg/dl (0.6-1.4) 05/26/21 19:30 Est Cr Clr Drug Dosing 56.4 ml/min 05/26/21 19:30 Est GFR ( Amer) 69.8 ml/min 05/26/21 19: Est GFR (Non-Af Amer) 60.2 ml/min 05/26/21 19:30 BUN/Creatinine Ratio 25.2 (10-20) H 05/26/21 19:30 Glucose 187 mg/dl (70-99(Fasting)) H 05/26/21 19: Calcium 9.2 mg/dl (8.5-10.1) 05/26/21 19:30 Magnesium 2.2 mg/dl (1.7-2.4) 05/26/21 19:30 Total Bilirubin 0.4 mg/dl (0.2-1.0) 05/26/21 19:30 AST 18 U/L (13-39) 05/26/21 19:30 ALT 29 U/L (7-52) 05/26/21 19:30 Alkaline Phosphatase 63 U/L (34-104) 05/26/21 19:30 Troponin I < 0.03 ng/ml (0-0.04) 05/26/21 22:41 Total Protein 6.5 gm/dl (6.0-8.3) 05/26/21 19:30 Albumin 3.7 gm/dl (3.4-5.0) 05/26/21 19:30 Globulin 2.8 gm/dl (2.5-4.0) 05/26/21 19:30 Albumin/Globulin Ratio 1.3 (0.9-2) 05/26/21 19:30 Lipase 132 U/L (11-82) H 05/26/21 19:30 Procalcitonin < 0.05 ng/ml (0-0.5) 05/26/21 19:30 SARS-CoV-2, RNA, NAAT NEGATIVE (NEGATIVE) 05/26/21 22:45 Impressions Chest X-Ray 05/26/21 19:40 XR chest 1V portable HISTORY: Atypical Chest Pain COMPARISON: Chest 05/08/2021. FINDINGS: No pneumothorax. No pleural effusions. There is a moderate to large hiatus hernia, unchanged. The heart remains mildly enlarged. No new focal lung consolidations to suggest pneumonia. No evidence for pulmonary edema. IMPRESSION: No significant change compared to the prior study. No acute process. Stable hiatus hernia. ACT 112: Negative or not required by law. Electronically signed by: Asaf Eason M.D. 05/26/2021 8:12 PM Chest CTA 05/26/21 20:40 CHEST CTA for PULMONARY ARTERIES CT DOSE: 651.49 mGy.cm HISTORY: Mid chest pain. Chest pressure. Shortness of breath. TECHNIQUE: Multiaxial CT images of the chest were performed following the intravenous administration of contrast to evaluate the pulmonary arteries. Maximal intensity projection images were also obtained. A dose lowering technique was utilized adhering to the principles of ALARA. COMPARISON STUDY: Chest 05/26/2021. Chest CTA 08/08/2018. FINDINGS: Limited views the upper abdomen demonstrate a normal liver, spleen, and adrenal glands. There is a moderate to large hiatus hernia, unchanged. No pleural or pericardial effusions. The thyroid gland enhances normally. There is mild bilateral gynecomastia. The heart is mildly enlarged. No mediastinal or hilar lymphadenopathy. Normal caliber esophagus. Flattening of the interventricular septum with slight increase in size of the right ventricle consistent with mild right-sided heart strain. Normal caliber thoracic aorta with no evidence for dissection. Multiple scattered filling defects seen within the majority of the segmental and subsegmental pulmonary arteries as well as the right lobar pulmonary arteries consistent with pulmonary emboli. No fractures within the visualized osseous structures. No pneumothorax. The central airways are patent. A punctate calcified granuloma within the lingula. There are few calcified left hilar lymph nodes. No focal lung consolidations. IMPRESSION: 1. Extensive bilateral pulmonary emboli with mild right-sided heart strain. 2. No focal lung consolidations to suggest pulmonary infarcts or a pneumonia. 3. Moderate to large hiatus hernia, unchanged. ACT 112: Negative or not required by law. Electronically signed by: Asaf Eason M.D. 05/26/2021 9:37 PM Diagnostic Findings EKG as per my interpretation : Rate 110, sinus tachycardia, normal axis, T wave abnormalities inferior and anterior leads, inferior infarct, PVCs
[2021-05-27] MEDS ORDERED: LORazepam 0.25 MG/0.5 ML VIAL IV PRN (01:38)
[2021-05-27] MEDS ORDERED: SODIUM CHLORIDE 0.9% 1000ML 1,000 ML IV ONE (01:38)
[2021-05-27] MEDS ORDERED: PROMETHAZINE HCL 12.5 MG in SODIUM CHLORIDE 0.9% 50 ML IV PRN (01:38)
[2021-05-27] MEDS ORDERED: traMADol HCL 50 MG TABLET PO PRN (01:38)
[2021-05-27] MEDS ORDERED: ACETAMINOPHEN 325 MG TAB PO PRN (01:38)
[2021-05-27] MEDS ORDERED: MoRPHine SULFATE 4 MG/ML 1 ML CARP\\VIAL IV PRN (01:38)
[2021-05-27] MEDS: IRBESARTAN 150 MG TAB PO SCH (05:15)
[2021-05-27 05:18] LABS: Eosinophils # (auto) 0.05 K/uL (0-0.5); Eosinophils % (auto) 0.4 %; Hematocrit (blood only) 40.3 % (42-52); Hemoglobin 13.1 g/dL (14.0-18.0); Immature Granulocytes # (auto) 0.04 K/uL (0.00-0.02); Immature Granulocytes % (auto) 0.3 %; Lymphocytes # (auto) 1.51 K/uL (1.2-3.4); Lymphocytes % (auto) 11.2 %; Mean Corpuscular Hemoglobin 29.8 pg (25-34); Mean Corpuscular Hgb Conc 32.5 g/dL (32-36); Mean Corpuscular Volume 91.8 fL (80-100); Mean Platelet Volume 11.2 fL (7.4-10.4); Monocytes # (auto) 0.96 K/uL (0.11-0.59); Monocytes % (auto) 7.1 %; Neutrophils # (auto) 10.93 K/uL (1.4-6.5); Platelet Count 179 K/uL (130-400); RDW Coefficient of Variation 16.7 % (11.5-14.5); RDW Standard Deviation 55.9 fL (36.4-46.3); Red Blood Count 4.39 M/uL (4.7-6.1); White Blood Count 13.49 K/uL (4.8-10.8)
[2021-05-27 05:39] LABS: Calcium 8.5 mg/dl (8.5-10.1); Creatinine Clr Calc Pharmacy 64.8 ml/min; Est GFR (African American) 82.6 ml/min; Est GFR (Non-African American) 71.3 ml/min
[2021-05-27 05:53] LABS: Partial Thromboplastin Ratio > 5.3
[2021-05-27 06:12] LABS: Partial Thromboplastin Time > 139.0 Seconds (21.0-31.0)
[2021-05-27 07:11] LABS: Partial Thromboplastin Ratio > 5.3
[2021-05-27 07:20] LABS: Partial Thromboplastin Time > 139.0 Seconds (21.0-31.0)
[2021-05-27] MEDS: predniSONE 10 MG TABLET PO SCH (08:35)
[2021-05-27] MEDS: ATORVASTATIN 20 MG TAB PO SCH (08:35)
[2021-05-27] MEDS: FLUTICASONE PROPIONATE NA SPR 16 GM BTL SCH (08:35)
[2021-05-27 08:54] LABS: Partial Thromboplastin Time 104.7 Seconds (21.0-31.0)
[2021-05-27] MEDS ORDERED: IRBESARTAN 150 MG TAB PO SCH (09:00)
--- NOTE | 2021-05-27 09:48 | Ultrasound Report ---
US venous doppler LE BI CLINICAL HISTORY: PE dominguez COMPARISON: None available at the time of this dictation. TECHNIQUE: Bilateral lower extremity real-time compression venous ultrasound with Color Doppler imagi ng. Utilizing real-time ultrasonic imaging multiple real time high-resolution ultrasonic images with comp ression and noncompression maneuvers of the deep venous system in addition to color doppler imaging w ere performed from the common femoral vein through the proximal calf veins. FINDINGS: Currently there is normal compressibility of the deep venous system from the common femoral vein thro ugh the proximal calf veins. No current evidence of acute thrombosis is identified. Impression: No evidence of deep venous thrombus. ACT 112: Negative or not required by law. Electronically signed by: Rdedy Loza M.D. 05/27/2021 9:47 AM
--- NOTE | 2021-05-27 11:46 | Hospitalist Progress Note ---
Date of Service May 27, 2021 Assessment & Plan (1) Bilateral pulmonary embolism: Plan: History superficial leg DVT on aspirin from 2019 Patient predisposed by decreased mobility the last 2 years for presumptive post COVID-19 illness and testosterone patch Rule out LE clot as source pulmonary emboli PSVT/VT as per records, hypertension, elevated hyperlipidemia on statin Rx prediabetes, likely DM2 given hemoglobin A1c of 6.19 April 2021 possible PMR on trial steroid Rx past tobacco abuse. PCU IV Heparin DC testosterone patch Patient has expressed interest in NOAC tx. DC home aspirin treatment for history of superficial clot Titrate home BP meds DVT prophylaxis. IV Heparin Full code ROS-No Headache, No Visual Changes, No Nausea, No Vomiting, No Fever, No Chills, No Neck Pain or Stiffness, No Chest Pain, No Palpitations, No SOB, No HEATH, No Cough, No Sputum, No Wheezing, No Abdominal Pain, No Diarrhea, No Hematemesis, No Hemoptysis, No Unexpected Weight Loss, No Flank pain, No Melena, No Hematochezia, No Frequency, No Urgency, No Burning, No Hematuria, No Rashes, No Diaphoresis. Appetite is Normal Physical Exam Gen-AAO x 3, NAD, Afebrile, Obese, Pleasant Head-NCAT, EOMI, PERRLA, Anicteric Sclera, No Posterior Pharyngeal Erythema Neck-Supple, No JVD, No Thyromegaly, No Masses, No LAD, No Bruits Lungs-Clear to Auscultation Bilaterally, No Rales, No Rhonchi, No Wheezing, No Crepitus Chest-No S4, +S1, +S2, No S3, No Murmurs, No Rubs, No Gallops, No Ectopy Abdomen-Soft, Bowel Sounds Present, Non Tender, Non Distended, No Hepatomegaly, No Splenomegaly, No Palpable Masses, No Rebound, No Rigidity, No Guarding Musculoskeletal-Full Range of Motion Bilaterally, No CVAT Extremities-No Cyanosis, No Clubbing, No Edema Nuero-Cranial Nerves II-XII grossly intact, Motor WNL, DTRs WNL, Strength WNL, Non Focal Psych-Normal Mood Admission and Anticipated Discharge Date Admission Date: May 26, 2021 Subjective Patient seen, very pleasant 81 yo man who looks like he's in his early 70s, Breathing well, feeling a lot better Results & Data Results & Data ([facility]) Vital Signs (Past 12 Hours) Vital Signs Temp Pulse Resp BP Pulse Ox 05/27/21 08:25 84 18 156/91 H 05/27/21 02:27 37 C 78 18 171/90 H 96
[2021-05-27 12:43] LABS: Partial Thromboplastin Ratio 2.3
[2021-05-27 12:46] LABS: Partial Thromboplastin Time 60.4 Seconds (21.0-31.0)
[2021-05-27] MEDS: predniSONE 5 MG TAB PO SCH (13:35)
[2021-05-27 18:54] LABS: Partial Thromboplastin Ratio 3.1
[2021-05-27 19:26] LABS: Partial Thromboplastin Time 82.6 Seconds (21.0-31.0)
[2021-05-27] MEDS: HEPARIN SODIUM/DEXTROSE 25,000 UNITS/500 ML BAG IV SCH (19:47)
[2021-05-27] MEDS: AZELASTINE HCL 0.1% NASAL 200 SPRAYS/27,400 MCG BTL SCH (20:34)
[2021-05-27] MEDS ORDERED: dilTIAZem HCL 240 MG CAPCR PO SCH (21:00)
[2021-05-27] MEDS: dilTIAZem HCL 300 MG CAPCR PO SCH (21:54)
[2021-05-27] MEDS: POTASSIUM CHLORIDE 10 MEQ TABCR PO SCH (21:55)
[2021-05-28 03:42] LABS: Partial Thromboplastin Ratio 4.1
[2021-05-28 03:47] LABS: Partial Thromboplastin Time 108.2 Seconds (21.0-31.0)
[2021-05-28 07:37] LABS: Estimated Average Glucose 134 mg/dl; Hemoglobin A1C 6.3 % (4.5-5.6)
[2021-05-28] MEDS: predniSONE 10 MG TABLET PO SCH (08:25)
[2021-05-28] MEDS: POTASSIUM CHLORIDE 10 MEQ TABCR PO SCH ×3 (08:25→19:29)
[2021-05-28] MEDS: ATORVASTATIN 20 MG TAB PO SCH (08:25)
[2021-05-28] MEDS: IRBESARTAN 150 MG TAB PO SCH (08:26)
[2021-05-28] MEDS: FLUTICASONE PROPIONATE NA SPR 16 GM BTL SCH (08:26)
[2021-05-28] MEDS ORDERED: MULTIVITAMIN TAB PO SCH (09:00)
[2021-05-28 11:15] LABS: Partial Thromboplastin Ratio 1.9
[2021-05-28 11:33] LABS: Partial Thromboplastin Time 51.1 Seconds (21.0-31.0)
[2021-05-28] MEDS: predniSONE 5 MG TAB PO SCH (14:04)
--- NOTE | 2021-05-28 14:10 | Hospitalist Progress Note ---
Date of Service May 28, 2021 Assessment & Plan (1) Bilateral pulmonary embolism: Plan: History superficial leg DVT on aspirin from 2019 Patient predisposed by decreased mobility the last 2 years for presumptive post COVID-19 illness and testosterone patch Rule out LE clot as source pulmonary emboli PSVT/VT as per records, hypertension, elevated hyperlipidemia on statin Rx prediabetes, likely DM2 given hemoglobin A1c of 6.19 April 2021 possible PMR on trial steroid Rx past tobacco abuse. IV Heparin, Eliquis tomorrow, Script sent for approval DC testosterone patch DC home aspirin treatment for history of superficial clot Titrate home BP meds DVT prophylaxis. IV Heparin Full code ROS-No Headache, No Visual Changes, No Nausea, No Vomiting, No Fever, No Chills, No Neck Pain or Stiffness, No Chest Pain, No Palpitations, No SOB, No HEATH, No Cough, No Sputum, No Wheezing, No Abdominal Pain, No Diarrhea, No Hematemesis, No Hemoptysis, No Unexpected Weight Loss, No Flank pain, No Melena, No Hematochezia, No Frequency, No Urgency, No Burning, No Hematuria, No Rashes, No Diaphoresis. Appetite is Normal Physical Exam Gen-AAO x 3, NAD, Afebrile, Obese, [place]-NCAT, EOMI, PERRLA, Anicteric Sclera, No Posterior Pharyngeal Erythema Neck-Supple, No JVD, No Thyromegaly, No Masses, No LAD, No Bruits Lungs-Clear to Auscultation Bilaterally, No Rales, No Rhonchi, No Wheezing, No Crepitus Chest-No S4, +S1, +S2, No S3, No Murmurs, No Rubs, No Gallops, No Ectopy Abdomen-Soft, Bowel Sounds Present, Non Tender, Non Distended, No Hepatomegaly, No Splenomegaly, No Palpable Masses, No Rebound, No Rigidity, No Guarding Musculoskeletal-Full Range of Motion Bilaterally, No CVAT Extremities-No Cyanosis, No Clubbing, No Edema Nuero-Cranial Nerves II-XII grossly intact, Motor WNL, DTRs WNL, Strength WNL, Non Focal Psych-Normal Mood Admission and Anticipated Discharge Date Admission Date: May 26, 2021 Subjective Patient seen, very pleasant, Breathing well, feeling a lot better Results & Data Results & Data ([facility]) Vital Signs (Past 12 Hours) Vital Signs Temp Pulse Pulse Resp BP Pulse Ox 05/28/21 11:31 36.7 C 82 14 136/73 93 05/28/21 08:01 37.0 C 92 H 17 166/95 H 93
[2021-05-28] MEDS: dilTIAZem HCL 300 MG CAPCR PO SCH (19:29)
[2021-05-28] MEDS: AZELASTINE HCL 0.1% NASAL 200 SPRAYS/27,400 MCG BTL SCH (19:29)
--- NOTE | 2021-05-28 22:06 | Electrocardiogram Report ---
Test Reason : Blood Pressure : / mmHG Vent. Rate : 110 BPM Atrial Rate : 110 BPM P-R Int : 122 ms QRS Dur : 072 ms QT Int : 308 ms P-R-T Axes : 031 045 -44 degrees QTc Int : 416 ms Sinus tachycardia with occasional , and consecutive Premature ventricular complexes Cannot rule out Inferior infarct , age undetermined Abnormal ECG When compared with ECG of 08-MAY-2021 04:10, Premature ventricular complexes are now Present Minimal criteria for Inferior infarct are now Present Nonspecific T wave abnormality has replaced inverted T waves in Anterior leads Confirmed by Robinson Farias ([id number]) on 05/28/2021 10:06:18 PM Referred By: REFERRED SELF Confirmed By:Robinson Farias
[2021-05-29] MEDS: HEPARIN SODIUM/DEXTROSE 25,000 UNITS/500 ML BAG IV SCH (01:38)
[2021-05-29 06:21] LABS: Hematocrit (blood only) 38.6 % (42-52); Hemoglobin 12.5 g/dL (14.0-18.0); Mean Corpuscular Hemoglobin 30.3 pg (25-34); Mean Corpuscular Hgb Conc 32.4 g/dL (32-36); Mean Corpuscular Volume 93.5 fL (80-100); Mean Platelet Volume 11.4 fL (7.4-10.4); Platelet Count 166 K/uL (130-400); RDW Coefficient of Variation 16.7 % (11.5-14.5); Red Blood Count 4.13 M/uL (4.7-6.1); White Blood Count 11.23 K/uL (4.8-10.8)
[2021-05-29 06:49] LABS: BUN Creatinine Ratio 20.7 (10-20); Calcium 8.1 mg/dl (8.5-10.1); Creatinine Clr Calc Pharmacy 74.4 ml/min; Est GFR (African American) 95.1 ml/min; Est GFR (Non-African American) 82.1 ml/min; Potassium 3.7 mmol/L (3.5-5.1)
[2021-05-29 06:51] LABS: Partial Thromboplastin Ratio 1.7; Partial Thromboplastin Time 43.9 Seconds (21.0-31.0)
[2021-05-29] MEDS: POTASSIUM CHLORIDE 10 MEQ TABCR PO SCH (07:44)
[2021-05-29] MEDS: predniSONE 10 MG TABLET PO SCH (07:44)
[2021-05-29] MEDS: IRBESARTAN 150 MG TAB PO SCH (07:44)
[2021-05-29] MEDS: ATORVASTATIN 20 MG TAB PO SCH (07:45)
[2021-05-29] MEDS: FLUTICASONE PROPIONATE NA SPR 16 GM BTL SCH (07:45)
[2021-05-29] MEDS ORDERED: APIXABAN 5 MG TABLET PO SCH (09:00)
--- NOTE | 2021-05-29 09:07 | Discharge Summary ---
Date of Service May 29, 2021 Admission HPI Per Admitting Provider History obtained from patient, family, and records. 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 Last confinement 2018 for transient weakness. Patient has had shortness of breath worse on exertion following a bad respiratory tract infection from February 2019. Patient suspects he may have had undiagnosed COVID-19 infection. Patient not active as usual. Outpatient neurology work-up for possible myasthenia gravis. Some improvement in energy levels after topical testosterone initiated by PCP last November 2020 with borderline low serum testosterone levels. Last week, low-dose prednisone trial initiated by [employer]al manager for possible PMR given outpatient elevated ESR and CRP. Outpatient nuclear stress test from a few days ago negative for ischemia. Home Cardizem dose increased to 300 mg daily recommended by PCP given elevated BP and ectopic beats during study as per documentation. This afternoon, patient noted sudden onset substernal pain with shortness of breath. Nonpleuritic. No cough symptoms. No unusual leg swelling. No unusual weight loss. At the ER, IV heparin started for pulmonary embolism. Prior history of LLE gastrocnemius vein thrombosis for which aspirin was recommended by PCP. No known family history of blood clots. 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 Admission Exam Per Admitting Provider GENERAL: Comfortable, slightly anxious, obese, pleasant, no respiratory distress SKIN: Normal color, warm HEENT: [place] palpebral conjunctivae, no ptosis, moist buccal mucosa NECK : Supple, short neck, no tenderness CHEST : CTA, no tenderness HEART : RRR, no obvious murmurs ABDOMEN: Some distention, nontender EXTREMITIES : Minimal LE swelling, no LE tenderness, no other conspicuous deformities noted NEUROLOGIC : Coherent, no facial asymmetry, no other gross focality Principal Diagnosis Bilateral pulmonary embolism: History superficial leg DVT on aspirin from 2018 post COVID-19 illness and testosterone patch PSVT/VT as per records, hypertension hyperlipidemia prediabetes possible PMR past tobacco abuse. Discharge Exam See below Discharge Data Allergies Allergy/AdvReac Type Severity Reaction Status Date / Time levothyroxine Allergy Intermediate HIVES,LIPS Verified 05/26/21 23:09 SWELLING hydrocodone Allergy Unknown Verified 05/26/21 23:11 amoxicillin [From Augmentin] AdvReac Severe Diarrhea Verified 05/26/21 23:09 clavulanic acid AdvReac Severe Diarrhea Verified 05/26/21 23:09 [From Augmentin] codeine AdvReac Intermediate "I GOT Verified 05/26/21 23:09 REALLY SICK" metformin AdvReac Mild GI SYMPTOMS Verified 05/26/21 23:09 Consultations 05/26/21 21:58 ED Decision to Admit Stat Ordered Studies 05/26/21 20:40 CT angio chest PE protocol Stat 05/27/21 US venous doppler LE BI Routine Current Diagnoses Other pulmonary embolism without acute cor pulmonale (05/26/21) Allergies levothyroxine Allergy (Intermediate, Verified 05/26/21 23:09) HIVES,LIPS SWELLING hydrocodone Allergy (Verified 05/26/21 23:11) Unknown amoxicillin [From Augmentin] Adverse Reaction (Severe, Verified 05/26/21 23:09) Diarrhea clavulanic acid [From Augmentin] Adverse Reaction (Severe, Verified 05/26/21 23:09) Diarrhea codeine Adverse Reaction (Intermediate, Verified 05/26/21 23:09) "I GOT REALLY SICK" metformin Adverse Reaction (Mild, Verified 05/26/21 23:09) GI SYMPTOMS Height/Weight/Isolation Height 5 ft 5 in Weight 98.7 kg Chemistry 05/29/21 05:48 Sodium 141 Potassium 3.7 Chloride 110 H Carbon Dioxide 25 Anion Gap 6 BUN 18 Creatinine 0.87 Glucose 99 Hospital Course (1) Bilateral pulmonary embolism: History superficial leg DVT on aspirin from 2019 Patient predisposed by decreased mobility the last 2 years for presumptive post COVID-19 illness and testosterone patch Ruled out LE clot as source pulmonary emboli PSVT/VT as per records, hypertension, elevated hyperlipidemia on statin Rx prediabetes, likely DM2 given hemoglobin A1c of 6.19 April 2021 possible PMR on trial steroid Rx past tobacco abuse. DC IV Heparin, Eliquis today DC testosterone patch DC home aspirin treatment for history of superficial clot Titrate home BP meds DVT prophylaxis. IV Heparin/Eliquis Full code ROS-No Headache, No Visual Changes, No Nausea, No Vomiting, No Fever, No Chills, No Neck Pain or Stiffness, No Chest Pain, No Palpitations, No SOB, No HEATH, No Cough, No Sputum, No Wheezing, No Abdominal Pain, No Diarrhea, No Hematemesis, No Hemoptysis, No Unexpected Weight Loss, No Flank pain, No Melena, No Hematochezia, No Frequency, No Urgency, No Burning, No Hematuria, No Rashes, No Diaphoresis. Appetite is Normal Physical Exam Gen-AAO x 3, NAD, Afebrile, Obese, Ple[place] Head-NCAT, EOMI, PERRLA, Anicteric Sclera, No Posterior Pharyngeal Erythema Neck-Supple, No JVD, No Thyromegaly, No Masses, No LAD, No Bruits Lungs-Clear to Auscultation Bilaterally, No Rales, No Rhonchi, No Wheezing, No Crepitus Chest-No S4, +S1, +S2, No S3, No Murmurs, No Rubs, No Gallops, No Ectopy Abdomen-Soft, Bowel Sounds Present, Non Tender, Non Distended, No Hepatomegaly, No Splenomegaly, No Palpable Masses, No Rebound, No Rigidity, No Guarding Musculoskeletal-Full Range of Motion Bilaterally, No CVAT Extremities-No Cyanosis, No Clubbing, No Edema Nuero-Cranial Nerves II-XII grossly intact, Motor WNL, DTRs WNL, Strength WNL, Non Focal Psych-Normal Mood Total Time Total Time Spent Total Time Spent (In Minutes): 45 mins Total Time Includes: Examination of the Patient, Discharge Planning, Medication Reconciliation and Communication With Other Providers Discharge Plan Discharge Items Patient Disposition: Home - Self-Care Reason For Visit: PE, STRAIN, UNCONTROLLED HTN Discharge Diagnosis: Bilateral pulmonary embolism: History superficial leg DVT on aspirin from 2019 post COVID-19 illness and testosterone patch PSVT/VT as per records, hypertension hyperlipidemia prediabetes possible PMR past tobacco abuse. Condition on Discharge: Good Activity: Resume your previous activity Lifting: Gradually increase as tolerated Bathing: No limitations Exercise/Sports: As tolerated Driving/Machine Use: No limitations Weightbearing: Full weightbearing Non-emergency contact: Primary Care Provider Call non-emergency contact if: you have any medication questions Follow-up/Referrals: Lana Eden MD [Primary Care Provider] - (Date & Time 06/01/2021 11:00 AM Provider Lana Eden MD Department General Internal Medicine [facility] ) Diet: Carb Consistent or DM2 and Heart Healthy Addtl Attending Provider Instructions: Follow with you PCP Pending Studies at Discharge: No Stand-Alone Forms: My [facility], Smoking Cessation Medications and DC Order Prescriptions: New Eliquis 5 mg tablet 10 mg PO Q12H Qty: 90 RF: 0 diltiazem HCl [Cardizem CD] 300 mg Capsule,Extended Release 24hr 300 mg PO QPM Qty: 30 RF: 0 irbesartan 150 mg Tablet 300 mg PO QAM Qty: 30 RF: 0 potassium chloride 10 mEq Tablet,Er Particles/Crystals 10 meq PO TID Qty: 90 RF: 0 Continued atorvastatin 20 mg tablet 20 mg PO QAM RF: 0 potassium chloride 10 mEq tablet extended release 10 meq PO TID RF: 0 Calcium 600 + D(3) 600 mg calcium- 200 unit Capsule 1 cap PO Q OTHER DAY RF: 0 multivitamin Tablet 1 tab PO .3-4XSWEEK RF: 0 prednisone 10 mg tablet 10 mg PO QAM RF: 0 prednisone 10 mg tablet 5 mg PO .QAFTERNOON RF: 0 ferrous sulfate [iron] 325 mg (65 mg iron) Tablet 325 mg PO Q OTHER DAY RF: 0 fluticasone propionate 50 mcg/actuation spray,suspension 2 spray INTRANASAL QAM RF: 0 azelastine 205.5 mcg (0.15 %) spray,non-aerosol 1 spray INTRANASAL HS RF: 0 Discontinued aspirin 81 mg tablet,chewable 81 mg PO QPM RF: 0 irbesartan 150 mg Tablet 150 mg PO QAM RF: 0 diltiazem HCl 240 mg capsule,extended release 24hr 240 mg PO QPM RF: 0 triamterene-hydrochlorothiazid 37.5-25 mg tablet 0.5 tab PO DAILY RF: 0 Androderm 2 mg/24 hour patch 24 hour 1 patch topical QPM RF: 0 Discharge Orders: Discharge Order (Routine); Ordered 05/29/21 Ordered By: Mark Dugan/Other Patient Handouts: Prediabetes, 5 Steps for Eating Healthier Admission Data Admit Date/Time: 05/26/21 23:25 Attending Provider: Mark Bruce Admit Provider: Teo Amaya Primary Care Provider: Lana Eden Other Providers: Teo Amaya
[2021-05-30 23:12] LABS: Anti-Thrombin III Activity 121 % normal (80-135); Protein S Functional(Activity) 96 % (70-150)
[2021-06-02 01:31] LABS: Factor 5 Mutation NEGATIVE
== END 2021-05-29 11:33 | disposition home or self-care (01) | DRG 176 ==
LOC: ED 19:16 → EDINP 23:25 → 2S 05-27 18:45

== ENCOUNTER 2022-05-16 06:10 | Inpatient (IN) ==
--- NOTE | 2022-05-16 06:58 | Emergency Department Note ---
History of Present Illness General Chief complaint: Cough Stated complaint: CANT BREATHING Time Seen by Provider: 05/16/22 06:39 Source: patient and family ( who is at the bedside) Mode of arrival: ambulatory Limitations: no limitations History of Present Illness This patient is an 81-year-old previous healthy male who comes in after having a [place] cough for the last couple days. He got worse overnight where he was very short of breath he felt he had congestion in his sinuses. He says he was wheezing at times. He could not sleep because he was short of breath he is actually feeling quite a bit better now. Denies any chest pain or palpitations no nausea vomiting no fever. No pain or swelling in his legs. He is on Eliquis for history of bilateral PE. No nausea vomiting or diarrhea. No blood or melena in stool. No sick contacts. Home Medications Medication Instructions Recorded Confirmed Type atorvastatin 20 mg tablet 20 mg PO QAM 08/08/18 05/16/22 History calcium carbonate 600 mg-vitamin 1 cap PO QAM 05/03/19 05/16/22 History D3 5 mcg (200 unit) capsule (Calcium 600 + D(3)) azelastine 205.5 mcg (0.15 %) 1 spray intranasal HS 05/26/21 05/16/22 History nasal spray ferrous sulfate 325 mg (65 mg 325 mg PO 4XWK 05/26/21 05/16/22 History iron) tablet (iron) fluticasone propionate 50 2 spray intranasal DAILYBB 05/26/21 05/16/22 History mcg/actuation nasal spray,suspension multivitamin 1 tab PO 3XWK 05/26/21 05/16/22 History prednisone 10 mg tablet 10 mg PO DAILY 05/26/21 05/16/22 History apixaban 5 mg tablet (Eliquis) 5 mg PO AMHS 07/31/21 05/16/22 History metformin 500 mg tablet,extended 500 mg PO DAILYBB 07/31/21 05/16/22 History release 24 hr triamterene 37.5 0.5 tab PO QAM 07/31/21 05/16/22 History mg-hydrochlorothiazide 25 mg tablet cholecalciferol (vitamin D3) 125 125 mcg PO DAILY 05/16/22 05/16/22 History mcg (5,000 unit) tablet (Vitamin D3) diltiazem HCl 300 mg 300 mg PO DAILY 05/16/22 05/16/22 History capsule,extended release 24 hr (Cardizem CD) irbesartan 150 mg tablet 300 mg PO HS 05/16/22 05/16/22 History potassium chloride 10 mEq 10 meq PO BID 05/16/22 05/16/22 History tablet,extended release(part/cryst) prednisone 2.5 mg tablet 2.5 mg PO DAILY 05/16/22 05/16/22 History Allergies Allergy/AdvReac Type Severity Reaction Status Date / Time levothyroxine Allergy Intermediate HIVES,LIPS Verified 05/16/22 10:41 SWELLING hydrocodone Allergy Unknown Unknown Verified 05/16/22 10:41 amoxicillin [From Augmentin] AdvReac Severe Diarrhea Verified 05/16/22 10:41 clavulanic acid AdvReac Severe Diarrhea Verified 05/16/22 10:41 [From Augmentin] codeine AdvReac Intermediate "I GOT Verified 05/16/22 10:41 REALLY SICK" metformin AdvReac Intermediate GI SYMPTOMS Verified 05/16/22 10:41 Past Med/Surg History Medical History (Updated 05/16/22 @ 14:45 by Niraj Moreno MD) Allergic rhinitis Arrhythmia Bronchitis 02/2019-TREATED Difficulty swallowing HX-RESOLVED PER PT DVT (deep venous thrombosis) LEFT LOWER LEG 2018-AFTER STOPPED TAKING ASPIRIN FOR 6 [id number] SINCE NAD NO ISSUES Dyslipidemia GERD (gastroesophageal reflux disease) Hearing deficit HTN (hypertension) Osteoarthritis Trochanteric bursitis, right hip Surgical History History of bilateral cataract extraction History of colonoscopy with polypectomy History of esophagogastroduodenoscopy (EGD) History of tooth extraction Family History (Updated 05/16/22 @ 10:38 by Sherri Fitch PA-C) Mother Cancer Melanoma Father AAA (abdominal aortic aneurysm) Parkinson disease Other No family history of adverse response to anesthesia Social History Smoking Status: Former smoker Tobacco Type: Cigarettes Second Hand Exposure: No; Hx Alcohol Use: Yes Alcohol type: hard liquor Hx Substance Use: No Preferred Language: Moroccan Communication Ability: Effective Entry Level Management Required: No Beliefs That Will Affect Care: None marital status: Current Living Situation: Spouse How many Children do You have: 0 Feels Safe at Home: Yes Assistive Devices: None Review of Systems A total of 10 systems reviewed and were otherwise negative Physical Exam Vital Signs Vital Signs - 24 hr 05/16/22 06:17 05/16/22 07:27 05/16/22 08:30 Temperature 36.8 C Temperature Source Temporal Artery Scan Pulse Rate 113 H Pulse Rate [Finger] 106 H Pulse Rhythm Regular Pulse Strength Normal Respiratory Rate 18 18 Respiratory Effort / Characteristics Non-Labored Spontaneous Respiratory Depth Normal Respiratory Pattern Regular Blood Pressure 153/72 H Blood Pressure [Left Arm] 133/76 Blood Pressure Mean 99 Blood Pressure Mean [Left Arm] 95 Blood Pressure Position Sitting Pulse Oximetry 88 L 96 95 Oxygen Delivery Method Room Air Room Air Room Air Sepsis Recent Fever Within 48 Hours No Sepsis New/Unexplained Change in Mental Status No Sepsis Action Taken by Nursing No Action Required 05/16/22 10:30 Temperature Temperature Source Pulse Rate Pulse Rate [Finger] 125 H Pulse Rhythm Pulse Strength Respiratory Rate 20 Respiratory Effort / Characteristics Respiratory Depth Respiratory Pattern Blood Pressure Blood Pressure [Left Arm] 143/97 H Blood Pressure Mean Blood Pressure Mean [Left Arm] 112 Blood Pressure Position Pulse Oximetry 95 Oxygen Delivery Method Sepsis Recent Fever Within 48 Hours Sepsis New/Unexplained Change in Mental Status Sepsis Action Taken by Nursing General: Well developed well nourished non-ill appearing older male who appears younger than stated age in no acute distress, breathing comfortably on room air. Normal speech. He is coughing occasionally HEENT: Normal cephalic atraumatic. Pupils are equal round and reactive to light. Extraocular movements are intact. Oropharynx is pink with moist mucous membranes. No swelling of the mouth lips or tongue. Neck: Supple with a midline trachea. No meningeal signs or stiffness, no JVD or bruits. No Stridor. Chest: Clear to auscultation bilaterally. No wheezes or rhonchi. No increased work of breathing. Heart: Irregularly irregular rate and rhythm, he is intermittently tachycardic. No murmurs or rubs appreciated Abdomen: Soft nontender, nondistended without rebound guarding or rigidity. Extremities: No cyanosis clubbing or edema. No calf tenderness or assymetry Spine/Back. Non tender to palpation. No CVA tenderness Skin: Good turgor without rashes. Neurologic exam: Cranial nerves two through 12 are intact. Motor and sensation are intact and symmetrical throughout. Course Administered Medications Discontinued Medications Apixaban (Apixaban 5 Mg Tablet) 5 mg PO NOW STA Stop: 05/16/22 11:05 Last Admin: 05/16/22 11:27 Dose: 5 mg Documented By: Diltiazem HCl (Diltiazem Hcl 300 Mg Capcr) 300 mg PO NOW STA Stop: 05/16/22 11:05 Last Admin: 05/16/22 11:26 Dose: 300 mg Documented By: Sodium Chloride (Nss 1000ml) 1,000 mls @ 999 mls/hr IV .Q1H1M ONE Stop: 05/16/22 09:15 Last Infusion: 05/16/22 09:00 Dose: 0 mls/hr Documented By: Admin: 05/16/22 08:28 Dose: 999 mls/hr Documented By: LEISA Sodium Chloride (Nss 1000ml) 1,000 mls @ 999 mls/hr IV .Q1H1M ONE Stop: 05/16/22 11:27 Last Admin: 05/16/22 11:33 Dose: 999 mls/hr Documented By: Ceftriaxone Sodium (Rocephin) 2,000 mg in 70 mls @ 140 mls/hr IV NOW STA Stop: 05/16/22 10:56 Last Admin: 05/16/22 11:40 Dose: Not Given Documented By: Ioversol (Optiray 320 500ml) 83 ml IV ONCE ONE Stop: 05/16/22 09:15 Last Admin: 05/16/22 10:17 Dose: Not Given Documented By: LEISA Potassium Chloride (Potassium Chloride Crtab 20 Meq Tabcr) 40 meq PO NOW STA Stop: 05/16/22 10:43 Last Admin: 05/16/22 11:26 Dose: 40 meq Documented By: Medical Decision Making Differential Diagnosis COVID, influenza, pneumonia, cardiac disease, PE, arrhythmia, A-fib, electrolyte or metabolic abnormality, sepsis, CHF Medical Records Attestation: I reviewed the patient's medical records. Home Medications Current Medication List: was personally reviewed by me Laboratory Data Attestation: I reviewed the patient's lab results. 05/16/22 07:10 05/16/22 07:10 Lab Results 05/16/22 05/16/22 05/16/22 Range/Units 06:41 07:10 07:10 WBC 10.52 (4.8-10.8) K/ul RBC 4.35 L (4.70-6.10) M/uL Hgb 13.4 L (14.0-18.0) g/dl Hct 40.6 L (42.0-52.0) % MCV 93.3 (80.0-100.0) fL MCH 30.8 (25.0-34.0) pg MCHC 33.0 (32.0-36.0) g/dL RDW Std Deviation 47.1 H (36.4-46.3) fL RDW Coeff of Kelsey 13.8 (11.5-14.5) % Plt Count 228 (130-400) K/uL MPV 11.3 (9.4-12.4) fL Immature Gran % (Auto) 0.7 % Neut % (Auto) 79.7 % Lymph % (Auto) 8.4 % Weld % (Auto) 8.7 % Eos % (Auto) 2.1 % Baso % (Auto) 0.4 % Neut # (Auto) 8.39 H (1.40-6.50) K/uL Lymph # (Auto) 0.88 L (1.2-3.4) K/uL Weld # (Auto) 0.92 H (0.11-0.59) K/uL Eos # (Auto) 0.22 (0-0.50) K/uL Baso # (Auto) 0.04 (0-0.2) K/uL Immature Gran # (Auto) 0.07 (0.01-0.20) K/uL PT 10.5 (9.0-12.0) Seconds INR 1.0 (0.9-1.1) APTT 23.3 (21.0-31.0) Seconds PTT Ratio 0.8 D-Dimer 290 (0-500) ug/L FEU Sodium (136-145) mmol/L Potassium (3.5-5.1) mmol/L Chloride (98-107) mmol/L Carbon Dioxide (21-32) mmol/L Anion Gap (3-11) BUN (6-23) mg/dl Creatinine (0.6-1.4) mg/dl Est Cr Clr Drug Dosing ml/min Est GFR ( Amer) ml/min Est GFR (Non-Af Amer) ml/min BUN/Creatinine Ratio (10-20) Glucose (70-99(Fasting)) mg/dl Lactate (0.4-2.0) mmol/L Calcium (8.5-10.1) mg/dl Magnesium (1.7-2.4) mg/dl Total Bilirubin (0.2-1.0) mg/dl Direct Bilirubin (0-0.2) mg/dl AST (13-39) U/L ALT (7-52) U/L Alkaline Phosphatase (34-104) U/L Troponin I High Sens (0-20) pg/ml B-Natriuretic Peptide (0-100) pg/ml Total Protein (6.0-8.3) gm/dl Albumin (3.4-5.0) gm/dl Procalcitonin (0-0.5) ng/ml Urine Color Urine Appearance (Clear) Urine pH (4.5-7.5) Ur Specific [place] (1.000-1.030) Urine Protein (Negative) Urine Glucose (UA) (Negative) Urine Ketones (Negative) Urine Blood (Negative) Urine Nitrite (Negative) Urine Bilirubin (Negative) Urine Urobilinogen (Negative) Ur Leukocyte Esterase (Negative) SARS-CoV-2 (PCR) NEGATIVE (Negative) Influenza Type A (PCR) Negative (Neg) Influenza Type B (PCR) Negative (Neg) RSV (RT-PCR) Negative (Neg) 05/16/22 05/16/22 05/16/22 Range/Units 07:10 07:10 07:10 WBC (4.8-10.8) K/ul RBC (4.70-6.10) M/uL Hgb (14.0-18.0) g/dl Hct (42.0-52.0) % MCV (80.0-100.0) fL MCH (25.0-34.0) pg MCHC (32.0-36.0) g/dL RDW Std Deviation (36.4-46.3) fL RDW Coeff of Kelsey (11.5-14.5) % Plt Count (130-400) K/uL MPV (9.4-12.4) fL Immature Gran % (Auto) % Neut % (Auto) % Lymph % (Auto) % Weld % (Auto) % Eos % (Auto) % Baso % (Auto) % Neut # (Auto) (1.40-6.50) K/uL Lymph # (Auto) (1.2-3.4) K/uL [place] # (Auto) (0.11-0.59) K/uL Eos # (Auto) (0-0.50) K/uL Baso # (Auto) (0-0.2) K/uL Immature Gran # (Auto) (0.01-0.20) K/uL PT (9.0-12.0) Seconds INR (0.9-1.1) APTT (21.0-31.0) Seconds PTT Ratio D-Dimer (0-500) ug/L FEU Sodium 141 (136-145) mmol/L Potassium 3.5 (3.5-5.1) mmol/L Chloride 102 (98-107) mmol/L Carbon Dioxide 31 (21-32) mmol/L Anion Gap 8 (3-11) BUN 22 (6-23) mg/dl Creatinine 1.12 (0.6-1.4) mg/dl Est Cr Clr Drug Dosing 56.9 ml/min Est GFR ( Amer) 71.5 ml/min Est GFR (Non-Af Amer) 61.7 ml/min BUN/Creatinine Ratio 19.6 (10-20) Glucose 94 (70-99(Fasting)) mg/dl Lactate 2.5 H* (0.4-2.0) mmol/L Calcium 9.5 (8.5-10.1) mg/dl Magnesium 2.0 (1.7-2.4) mg/dl Total Bilirubin 0.6 (0.2-1.0) mg/dl Direct Bilirubin 0.1 (0-0.2) mg/dl AST 14 (13-39) U/L ALT 16 (7-52) U/L Alkaline Phosphatase 55 (34-104) U/L Troponin I High Sens 16.1 (0-20) pg/ml B-Natriuretic Peptide (0-100) pg/ml Total Protein 6.2 (6.0-8.3) gm/dl Albumin 3.6 (3.4-5.0) gm/dl Procalcitonin 0.05 (0-0.5) ng/ml Urine Color Urine Appearance (Clear) Urine pH (4.5-7.5) Ur Specific [place] (1.000-1.030) Urine Protein (Negative) Urine Glucose (UA) (Negative) Urine Ketones (Negative) Urine Blood (Negative) Urine Nitrite (Negative) Urine Bilirubin (Negative) Urine Urobilinogen (Negative) Ur Leukocyte Esterase (Negative) SARS-CoV-2 (PCR) (Negative) Influenza Type A (PCR) (Neg) Influenza Type B (PCR) (Neg) RSV (RT-PCR) (Neg) 05/16/22 05/16/22 05/16/22 Range/Units 07:10 08:25 09:10 WBC (4.8-10.8) K/ul RBC (4.70-6.10) M/uL Hgb (14.0-18.0) g/dl Hct (42.0-52.0) % MCV (80.0-100.0) fL MCH (25.0-34.0) pg MCHC (32.0-36.0) g/dL RDW Std Deviation (36.4-46.3) fL RDW Coeff of Kelsey (11.5-14.5) % Plt Count (130-400) K/uL MPV (9.4-12.4) fL Immature Gran % (Auto) % Neut % (Auto) % Lymph % (Auto) % Weld % (Auto) % Eos % (Auto) % Baso % (Auto) % Neut # (Auto) (1.40-6.50) K/uL Lymph # (Auto) (1.2-3.4) K/uL W[place] # (Auto) (0.11-0.59) K/uL Eos # (Auto) (0-0.50) K/uL Baso # (Auto) (0-0.2) K/uL Immature Gran # (Auto) (0.01-0.20) K/uL PT (9.0-12.0) Seconds INR (0.9-1.1) APTT (21.0-31.0) Seconds PTT Ratio D-Dimer (0-500) ug/L FEU Sodium (136-145) mmol/L Potassium 3.6 (3.5-5.1) mmol/L Chloride (98-107) mmol/L Carbon Dioxide (21-32) mmol/L Anion Gap (3-11) BUN (6-23) mg/dl Creatinine (0.6-1.4) mg/dl Est Cr Clr Drug Dosing ml/min Est GFR ( Amer) ml/min Est GFR (Non-Af Amer) ml/min BUN/Creatinine Ratio (10-20) Glucose (70-99(Fasting)) mg/dl Lactate (0.4-2.0) mmol/L Calcium (8.5-10.1) mg/dl Magnesium (1.7-2.4) mg/dl Total Bilirubin (0.2-1.0) mg/dl Direct Bilirubin (0-0.2) mg/dl AST (13-39) U/L ALT (7-52) U/L Alkaline Phosphatase (34-104) U/L Troponin I High Sens (0-20) pg/ml B-Natriuretic Peptide 85 (0-100) pg/ml Total Protein (6.0-8.3) gm/dl Albumin (3.4-5.0) gm/dl Procalcitonin (0-0.5) ng/ml Urine Color Yellow Urine Appearance Clear (Clear) Urine pH 7.5 (4.5-7.5) Ur Specific [place] 1.013 (1.000-1.030) Urine Protein Negative (Negative) Urine Glucose (UA) Negative (Negative) Urine Ketones Negative (Negative) Urine Blood Negative (Negative) Urine Nitrite Negative (Negative) Urine Bilirubin Negative (Negative) Urine Urobilinogen Negative (Negative) Ur Leukocyte Esterase Negative (Negative) SARS-CoV-2 (PCR) (Negative) Influenza Type A (PCR) (Neg) Influenza Type B (PCR) (Neg) RSV (RT-PCR) (Neg) 05/16/22 Range/Units 09:15 WBC (4.8-10.8) K/ul RBC (4.70-6.10) M/uL Hgb (14.0-18.0) g/dl Hct (42.0-52.0) % MCV (80.0-100.0) fL MCH (25.0-34.0) pg MCHC (32.0-36.0) g/dL RDW Std Deviation (36.4-46.3) fL RDW Coeff of Kelsey (11.5-14.5) % Plt Count (130-400) K/uL MPV (9.4-12.4) fL Immature Gran % (Auto) % Neut % (Auto) % Lymph % (Auto) % Weld % (Auto) % Eos % (Auto) % Baso % (Auto) % Neut # (Auto) (1.40-6.50) K/uL Lymph # (Auto) (1.2-3.4) K/uL Weld # (Auto) (0.11-0.59) K/uL Eos # (Auto) (0-0.50) K/uL Baso # (Auto) (0-0.2) K/uL Immature Gran # (Auto) (0.01-0.20) K/uL PT (9.0-12.0) Seconds INR (0.9-1.1) APTT (21.0-31.0) Seconds PTT Ratio D-Dimer (0-500) ug/L FEU Sodium (136-145) mmol/L Potassium (3.5-5.1) mmol/L Chloride (98-107) mmol/L Carbon Dioxide (21-32) mmol/L Anion Gap (3-11) BUN (6-23) mg/dl Creatinine (0.6-1.4) mg/dl Est Cr Clr Drug Dosing ml/min Est GFR ( Amer) ml/min Est GFR (Non-Af Amer) ml/min BUN/Creatinine Ratio (10-20) Glucose (70-99(Fasting)) mg/dl Lactate 3.4 H* (0.4-2.0) mmol/L Calcium (8.5-10.1) mg/dl Magnesium (1.7-2.4) mg/dl Total Bilirubin (0.2-1.0) mg/dl Direct Bilirubin (0-0.2) mg/dl AST (13-39) U/L ALT (7-52) U/L Alkaline Phosphatase (34-104) U/L Troponin I High Sens (0-20) pg/ml B-Natriuretic Peptide (0-100) pg/ml Total Protein (6.0-8.3) gm/dl Albumin (3.4-5.0) gm/dl Procalcitonin (0-0.5) ng/ml Urine Color Urine Appearance (Clear) Urine pH (4.5-7.5) Ur Specific [place] (1.000-1.030) Urine Protein (Negative) Urine Glucose (UA) (Negative) Urine Ketones (Negative) Urine Blood (Negative) Urine Nitrite (Negative) Urine Bilirubin (Negative) Urine Urobilinogen (Negative) Ur Leukocyte Esterase (Negative) SARS-CoV-2 (PCR) (Negative) Influenza Type A (PCR) (Neg) Influenza Type B (PCR) (Neg) RSV (RT-PCR) (Neg) Imaging Data Attestation: I personally reviewed and interpreted this imaging study as follows: My Impression: Chest x-ray-no acute infiltrate, failure, pneumothorax seen upon my interpretation Radiologist's Impression: Chest X-Ray 05/16/22 06:51 SINGLE VIEW CHEST CLINICAL HISTORY: Sepsis. FINDINGS: An AP, portable, upright chest radiograph is compared to study dated 07/31/2021 and correlated with chest CT dated 05/26/2021. A hiatal hernia is noted. The heart is mildly enlarged noting atherosclerotic calcification of the thoracic aorta. The pulmonary vasculature is noncongested. Chronic interstitial thickening similar to previous. There is bibasilar scarring/atelectasis. The lungs and pleural spaces are otherwise clear. No pneumothorax is seen. The skeletal structures are osteopenic. The bony thorax is grossly intact. Degenerative change is noted in the shoulders and spine. IMPRESSION: 1. Cardiomegaly with no active disease in the chest. 2. Hiatal hernia. ACT 112: Negative or not required by law. Electronically signed by: Joon Borges M.D. 05/16/2022 7:36 AM Chest CTA 05/16/22 08:15 CHEST CTA for PULMONARY ARTERIES CT DOSE: 725.63 mGy.cm HISTORY: Shortness of breath. TECHNIQUE: Multiaxial CT images of the chest were performed following the intravenous administration of contrast to evaluate the pulmonary arteries. Maximal intensity projection images were also obtained. A dose lowering technique was utilized adhering to the principles of ALARA. COMPARISON STUDY: Chest CTA 05/26/2021. FINDINGS: The visualized liver, spleen, and adrenal glands are unremarkable. Moderate to large hiatus hernia, unchanged. Normal thyroid gland. No mediastinal or hilar lymphadenopathy. No pleural or pericardial effusions. Normal caliber esophagus. The heart remains borderline enlarged. Mild bilateral gynecomastia. Normal caliber thoracic aorta with no evidence for a dissection. Moderate to severe coronary artery calcifications are noted. No evidence for right-sided heart strain. A few small nonocclusive linear filling defects within the right lower lobe pulmonary arteries consistent with nonocclusive chronic embolus. This has significantly improved compared to the prior study. Otherwise, no additional filling defects within the pulmonary arteries to suggest an acute pulmonary embolus. No acute fractures identified. Mild to moderate diffuse bronchial wall thickening. This has slightly progressed and may represent a bronchitis. Otherwise, the central airways are patent. No pneumothorax. No new focal lung consolidations to suggest a pneumonia. There are few punctate calcified granulomas within the lungs. IMPRESSION: 1. A few small nonocclusive linear filling defects within the right lower lobe pulmonary arteries consistent with nonocclusive chronic embolus. This has significantly improved compared to the prior study. Otherwise, no additional filling defects within the pulmonary arteries to suggest an acute pulmonary embolus. 2. Mild to moderate diffuse bronchial wall thickening which has progressed and may represent a bronchitis. 3. No focal lung consolidations to suggest a pneumonia. 3. Moderate to large hiatus hernia, unchanged. ACT 112: Negative or not required by law. Electronically signed by: Asaf Eason M.D. 05/16/2022 9:36 AM ECG Data Attestation: I personally reviewed and interpreted this ECG as follows: Indication: + SOB/dyspnea Rate (beats per minute): 116 Rhythm: + atrial fibrillation (Poor baseline and it seems very irregular) ECG Intervals/blocks: + Normal QRS and + Normal QT ECG [place]: + Normal ECG ST segments: + Nonspecific ST abnormalities ECG Findings: + PACs; no PVCs Comparison ECG Date: from (07/31/21) Change: the following changes noted (Rate has increased and there is more ectopy or A-fib) Additional Comments: EKG #2: A-fib with some ectopy. Nonspecific ST and T wave abnormalities rate is 128. Compared EKG #1 no significant change MDM Narrative This patient comes in as described above he has had a cough and URI type symptoms. His O2 sat initially was 88%. Although his symptoms sound more infectious I am concerned that he has a lot of ectopy and it appears to be in A- fib on the monitor. This is new he also has history of PE so that would c ertainly be in the differential as well. I did order a sepsis type work-up which included multiple blood tests including blood cultures and lactic acid as well as an EKG. He was also COVID tested and flu tested. He does not have any underlying lung disease besides PE he does not use inhalers. He has no white count or fever to suggest infection. No significant anemia. His chest x-ray does not show congestive heart failure, pneumonia, pneumothorax. Lactic acid is mildly elevated 2.5. He was given 1 L normal saline bolus IV. His D-dimer is within normal is however given his history of PE I did order a CT angio of the chest. He has no evidence of any upper airway problems. There is no stridor. The posterior oropharynx is wide open there is no evidence of Ludewig's angina or peritonsillar abscess he is speaking and swallow without difficulty. I did do a CT angio given his history of PEs there is no evidence of acute PE he has findings consistent with bronchitis and there is no other acute abnormality seen. The patient's subsequent lactic is a rising in the threes now. I gave him a second literIV normal saline bolus he looks well and is no longer hypoxemic I also given Rocephin IV for possible infection/sepsis I do think he needs to be admitted given his rising lactate, his hypoxemia upon presentation and his A-fib. I have consulted the [facility] hospitalist and I discussed the case with them and they will see him in the ER for these measures. Continuous cardiac monitoring: Orders placed in EMR for continuous monitoring and evaluation advisor. Upon my evaluation in narrow complex tachycardia with a lot of irregularity likely A-fib. Impression & Plan SOB (shortness of breath), Cough, URI (upper respiratory infection), A-fib, Elevated lactic acid level, Hypoxemia, Lab test negative for COVID-19 virus Discharge Plan Visit Data Chief Complaint: Cough Stated Complaint: CANT BREATHING ED Provider: Niraj Moreno Discharge Problem: SOB (shortness of breath), Cough, URI (upper respiratory infection), A-fib, Elevated lactic acid level, Hypoxemia, Lab test negative for COVID-19 virus Discharge Instructions Interventions: ED Discharge Assessment Last Done: 05/16/22 13:37
--- NOTE | 2022-05-16 07:37 | XRay Report ---
SINGLE VIEW CHEST CLINICAL HISTORY: Sepsis. FINDINGS: An AP, portable, upright chest radiograph is compared to study dated 07/31/2021 and correlat ed with chest CT dated 05/26/2021. A hiatal hernia is noted. The heart is mildly enlarged noting ather osclerotic calcification of the thoracic aorta. The pulmonary vasculature is noncongested. Chronic in terstitial thickening similar to previous. There is bibasilar scarring/atelectasis. The lungs and ple ural spaces are otherwise clear. No pneumothorax is seen. The skeletal structures are osteopenic. The bony thorax is grossly intact. Degenerative change is noted in the shoulders and spine. IMPRESSION: 1. Cardiomegaly with no active disease in the chest. 2. Hiatal hernia. ACT 112: Negative or not required by law. Electronically signed by: Joon Borges M.D. 05/16/2022 7:36 AM
[2022-05-16 07:39] LABS: Basophils # (auto) 0.04 K/uL (0-0.2); Basophils % (auto) 0.4 %; Eosinophils # (auto) 0.22 K/uL (0-0.50); Eosinophils % (auto) 2.1 %; Hematocrit (blood only) 40.6 % (42.0-52.0); Hemoglobin 13.4 g/dl (14.0-18.0); Immature Granulocytes # (auto) 0.07 K/uL (0.01-0.20); Immature Granulocytes % (auto) 0.7 %; Lymphocytes # (auto) 0.88 K/uL (1.2-3.4); Lymphocytes % (auto) 8.4 %; Mean Corpuscular Hemoglobin 30.8 pg (25.0-34.0); Mean Corpuscular Volume 93.3 fL (80.0-100.0); Mean Platelet Volume 11.3 fL (9.4-12.4); Monocytes # (auto) 0.92 K/uL (0.11-0.59); Monocytes % (auto) 8.7 %; Neutrophils # (auto) 8.39 K/uL (1.40-6.50); Neutrophils % (auto) 79.7 %; Platelet Count 228 K/uL (130-400); RDW Coefficient of Variation 13.8 % (11.5-14.5); RDW Standard Deviation 47.1 fL (36.4-46.3); Red Blood Count 4.35 M/uL (4.70-6.10); White Blood Count 10.52 K/ul (4.8-10.8)
[2022-05-16 07:41] LABS: Influenza A virus by PCR Negative (Neg); Influenza B virus by PCR Negative (Neg); RSV by PCR Negative (Neg); SARS CoV2 RNA(COVID-19) Ceph NEGATIVE (Negative)
[2022-05-16 07:50] LABS: D Dimer 290 ug/L FEU (0-500); Partial Thromboplastin Ratio 0.8; Partial Thromboplastin Time 23.3 Seconds (21.0-31.0); Prothrombin Time 10.5 Seconds (9.0-12.0)
[2022-05-16] MEDS ORDERED: SODIUM CHLORIDE 0.9% 1000ML 1,000 ML IV ONE ×2 (08:15→10:27)
[2022-05-16 08:25] LABS: Albumin Level 3.6 gm/dl (3.4-5.0); Bilirubin Direct 0.1 mg/dl (0-0.2); Bilirubin,Total 0.6 mg/dl (0.2-1.0); Calcium 9.5 mg/dl (8.5-10.1); Potassium 3.5 mmol/L (3.5-5.1)
[2022-05-16 08:31] LABS: BUN Creatinine Ratio 19.6 (10-20); Creatinine Clr Calc Pharmacy 56.9 ml/min; Est GFR (African American) 71.5 ml/min; Est GFR (Non-African American) 61.7 ml/min; Total Protein 6.2 gm/dl (6.0-8.3)
[2022-05-16 08:32] LABS: Troponin I High Sensitivity 16.1 pg/ml (0-20)
[2022-05-16] MEDS ORDERED: OPTIRAY 320 500ml IV ONE (09:14)
[2022-05-16 09:28] LABS: Appearance Urine Clear (Clear); Bilirubin Urine Negative (Negative); Blood Urine Negative (Negative); Color Urine Yellow; Glucose Urine UA Negative (Negative); Ketones Urine Negative (Negative); Leukocyte Esterase Urine Negative (Negative); Nitrite Urine Negative (Negative); Protein Urine Negative (Negative); Specific Gravity Urine 1.013 (1.000-1.030); Urobilinogen Urine Negative (Negative); pH Urine 7.5 (4.5-7.5)
--- NOTE | 2022-05-16 09:39 | CT Scan Report ---
CHEST CTA for PULMONARY ARTERIES CT DOSE: 725.63 mGy.cm HISTORY: Shortness of breath. TECHNIQUE: Multiaxial CT images of the chest were performed following the intravenous administration of contrast to evaluate the pulmonary arteries. Maximal intensity projection images were also obtaine d. A dose lowering technique was utilized adhering to the principles of ALARA. COMPARISON STUDY: Chest CTA 05/26/2021. FINDINGS: The visualized liver, spleen, and adrenal glands are unremarkable. Moderate to large hiatus hernia, unchanged. Normal thyroid gland. No mediastinal or hilar lymphadenopathy. No pleural or rolly cardial effusions. Normal caliber esophagus. The heart remains borderline enlarged. Mild bilateral gy necomastia. Normal caliber thoracic aorta with no evidence for a dissection. Moderate to severe coron duyen artery calcifications are noted. No evidence for right-sided heart strain. A few small nonocclusi ve linear filling defects within the right lower lobe pulmonary arteries consistent with nonocclusive chronic embolus. This has significantly improved compared to the prior study. Otherwise, no addition al filling defects within the pulmonary arteries to suggest an acute pulmonary embolus. No acute frac tures identified. Mild to moderate diffuse bronchial wall thickening. This has slightly progressed an d may represent a bronchitis. Otherwise, the central airways are patent. No pneumothorax. No new foca l lung consolidations to suggest a pneumonia. There are few punctate calcified granulomas within the lungs. IMPRESSION: 1. A few small nonocclusive linear filling defects within the right lower lobe pulmonary arteries con sistent with nonocclusive chronic embolus. This has significantly improved compared to the prior stud y. Otherwise, no additional filling defects within the pulmonary arteries to suggest an acute pulmona ry embolus. 2. Mild to moderate diffuse bronchial wall thickening which has progressed and may represent a bronch itis. 3. No focal lung consolidations to suggest a pneumonia. 3. Moderate to large hiatus hernia, unchanged. ACT 112: Negative or not required by law. Electronically signed by: Asaf Eason M.D. 05/16/2022 9:36 AM
[2022-05-16] MEDS ORDERED: cefTRIAXone SODIUM 2,000 MG/70 ML BAG IV STA (10:27)
[2022-05-16] MEDS ORDERED: POTASSIUM CHLORIDE CRTAB 20 MEQ TABCR PO STA (10:42)
[2022-05-16] MEDS ORDERED: dilTIAZem HCL 300 MG CAPCR PO STA (11:04)
[2022-05-16] MEDS ORDERED: APIXABAN 5 MG TABLET PO STA (11:04)
--- NOTE | 2022-05-16 11:54 | History & Physical Report ---
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 Acute viral bronchitis Admit to telemetry Treat with oral prednisone 40 mg daily, Mucinex 1,200 mg twice daily Pulmonary toilet with lev albuterol nebulizer 3 times daily and as needed; incentive spirometry Given duration of symptoms, negative procalcitonin and no consolidation on imaging do not feel antibiotics are currently warranted Patient is on chronic 12.5 mg of prednisone secondary to PMR we will place this on hold, this will need to be resumed at discharge once prednisone course is com plete Atrial fibrillation with RVR History of PSVT, atrial and ventricular ectopy Follows [facility] cardiology Last echocardiogram July 2021 which revealed EF 65%, mild aortic valve scle rosis Patient with intermittent episodes of Atrial fibrillation in ER Patient anticoagulated with Eliquis due to history of PE, he has not missed a dose in the last month Currently he is not symptomatic of heart rate and bp adequate Give home dose of diltiazem x1 now; will reassess rate and rhythm in 2 hours, if still rapid will consider either dill drip or short acting diltiazem Consult cardiology Echocardiogram Repeat Trop at 1230 Keep K and Mag at 4.0 and 2.0 repsectively, will give 40meq KCL x 1 now HTN continue diltiazem, irbesartan and triamterene/hctz bp borderline elevated in ED, likely in setting of didn't take meds/situation monitor closely HLD continue statin Hx of PE on eliquis PMR previously followed Dr. Allen, vicente under care of PCP on Prednisone 12.5mg daily, will place on hold while on tx for acute bronchitis home dose of 12.5mg of chronic pred will need to be resumed at D/C T2DM controlled a1c 6.4 on 05/03/22 hold metformin 48hrs in setting of contrast dye ac/hs accuchecks, correction novolog scale added DVT ppx: Eliquis Dispo: med tele, likely to remain hospitalized 1-2 days FULL CODE PCP: Lana Eden Pt was seen and examined in collaboration with Dr. Downey, please see addendum A total of 90 minutes were spent with greater than 50% of that time face to face with the patient, personally reviewing all current laboratories, imaging studies, past medication reconciliation, outpatient chart review, and discussion with specialists to collaborate care for the patient with attending. Please see attending documentation for corrections and/or additions. History of Present Illness Chief Complaint: Difficulty breathing x 1 day. 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 Patient's is at bedside. He elicits over the last 3 to 4 days he developed sinus congestion and a wet productive cough. His symptoms have been worsening over the past 3 to 4 days. He has been taking Mucinex DM with minimal relief. His cough is productive of cream-colored sputum. He denies hemoptysis or purulent sputum. He states, "my nose is so congested I just cannot breathe." Last night when he went to bed at approximately 130 he was unable to sleep due to difficulty breathing secondary to sinus congestion, drainage in back of throat and coughing. He denies hernandez shortness of breath or gasping for air. He denies fever, chills, sweats, lightheadedness, dizziness, chest pain, palpitations, nausea, vomiting, abdominal pain, change in bowel or urinary habits. He has history of PMR and is on chronic prednisone therapy. He has chronic fatigue associated with this. He feels that he may have long-haul COVID as well. He denies any change in exertional capacity. At baseline he gets fatigued with easy tasks and this is unchanged. He denies any hernandez chest pain. He does have an apple watch at home that over the last couple weeks has noted his rhythm to be A. fib, but when he captures an EKG for 30 seconds it does not say A. fib. He has been taking his medications regularly and has not missed a single dose of his Eliquis. He did not take his medications yet this morning. His appetite has otherwise been okay. He denies any sick contacts. In ED patient was hemodynamically stable although tachycardic. Initial EKG revealed sinus tachycardia with ectopy however on monitor as well as future EKGs it does reveal intermittent atrial fibrillation with RVR. His CBC and CMP was unremarkable. His procalcitonin, troponin, BNP was WNL. His potassium was slig htly low at 3.6. His D-dimer was normal. He did have a mild lactic acidosis at 2.5 and 3.4 respectively. His respiratory panel was negative. A CTA of chest was performed which revealed a nonocclusive chronic emboli, moderate diffuse bronchial wall thickening which may represent bronchitis. He did receive a fluid bolus in ED. According to ER provider patient was initially hypoxic at 88% but this has since resolved. Allergies Allergy/AdvReac Type Severity Reaction Status Date / Time levothyroxine Allergy Intermediate HIVES,LIPS Verified 05/16/22 10:41 SWELLING hydrocodone Allergy Unknown Unknown Verified 05/16/22 10:41 amoxicillin [From Augmentin] AdvReac Severe Diarrhea Verified 05/16/22 10:41 clavulanic acid AdvReac Severe Diarrhea Verified 05/16/22 10:41 [From Augmentin] codeine AdvReac Intermediate "I GOT Verified 05/16/22 10:41 REALLY SICK" metformin AdvReac Intermediate GI SYMPTOMS Verified 05/16/22 10:41 Home Medications Medication Instructions Recorded Confirmed Type atorvastatin 20 mg tablet 20 mg PO QAM 08/08/18 05/16/22 History calcium carbonate 600 mg-vitamin 1 cap PO QAM 05/03/19 05/16/22 History D3 5 mcg (200 unit) capsule (Calcium 600 + D(3)) azelastine 205.5 mcg (0.15 %) 1 spray intranasal HS 05/26/21 05/16/22 History nasal spray ferrous sulfate 325 mg (65 mg 325 mg PO 4XWK 05/26/21 05/16/22 History iron) tablet (iron) fluticasone propionate 50 2 spray intranasal DAILYBB 05/26/21 05/16/22 History mcg/actuation nasal spray,suspension multivitamin 1 tab PO 3XWK 05/26/21 05/16/22 History prednisone 10 mg tablet 10 mg PO DAILY 05/26/21 05/16/22 History apixaban 5 mg tablet (Eliquis) 5 mg PO AMHS 07/31/21 05/16/22 History metformin 500 mg tablet,extended 500 mg PO DAILYBB 07/31/21 05/16/22 History release 24 hr triamterene 37.5 0.5 tab PO QAM 07/31/21 05/16/22 History mg-hydrochlorothiazide 25 mg tablet cholecalciferol (vitamin D3) 125 125 mcg PO DAILY 05/16/22 05/16/22 History mcg (5,000 unit) tablet (Vitamin D3) diltiazem HCl 300 mg 300 mg PO DAILY 05/16/22 05/16/22 History capsule,extended release 24 hr (Cardizem CD) irbesartan 150 mg tablet 300 mg PO HS 05/16/22 05/16/22 History potassium chloride 10 mEq 10 meq PO BID 05/16/22 05/16/22 History tablet,extended release(part/cryst) prednisone 2.5 mg tablet 2.5 mg PO DAILY 05/16/22 05/16/22 History Past Med/Surg History Medical History (Updated 05/16/22 @ 14:45 by Niraj Moreno MD) Allergic rhinitis Arrhythmia Bronchitis 02/2019-TREATED Difficulty swallowing HX-RESOLVED PER PT DVT (deep venous thrombosis) LEFT LOWER LEG 2018-AFTER STOPPED TAKING ASPIRIN FOR 6 [id number] SINCE NAD NO ISSUES Dyslipidemia GERD (gastroesophageal reflux disease) Hearing deficit HTN (hypertension) Osteoarthritis Trochanteric bursitis, right hip Surgical History History of bilateral cataract extraction History of colonoscopy with polypectomy History of esophagogastroduodenoscopy (EGD) History of tooth extraction Family History (Updated 05/16/22 @ 10:38 by Sherri Fitch PA-C) Mother Cancer Melanoma Father AAA (abdominal aortic aneurysm) Parkinson disease Other No family history of adverse response to anesthesia Social History Smoking Status: Former smoker Tobacco Type: Cigarettes Second Hand Exposure: No; Hx Alcohol Use: Yes Alcohol type: hard liquor Hx Substance Use: No Preferred Language: Greek Communication Ability: Effective Head Greenskeeper Required: No Beliefs That Will Affect Care: None marital status: Current Living Situation: Spouse How many Children do You have: 0 Feels Safe at Home: Yes Assistive Devices: None Review of Systems Review of Systems: All systems reviewed & are unremarkable except as noted in HPI & below Physical Exam Physical Exam: Constitutional: WD/WN, male, vitals as above, NAD, sitting up in bed, pleasant, conversing easily Head: Normocephalic, Atraumatic Eyes: PERRL, conjunctivae normal, anicteric sclerae ENMT: external ear and nose normal, oropharynx normal Neck: trachea midline, no thyromegaly normal visual inspection Respiratory: normal respiratory effort, lungs clear to auscultation, no rales, rhonchi. Left anterior chest wall wheezing appreciated, normal insp/exp effort, no accessory muscle use Cardiovascular: Irregular rate, irregular rhythm RRR, no murmur, no edema Vessels: no JVD or carotid bruit Chest: normal inspection of chest Abdomen: normal bowel sounds, soft, nontender, no hepatosplenomegaly Musculoskeletal: no cyanosis or clubbing, extremities motor strength 5/5 Skin: no rashes, warm and dry normal turgor Neurologic: PERRL, EOMI, accommodation nl, no face palsy, no dysarthria CN's II-XI intact bilaterally and moves all extremities Psychiatric: A+Ox3, euthymic affect Lymphatic: no cervical or axillary lymphadenopathy : deferred Results & Data Results & Data ([facility]) Vital Signs (Past 12 Hours) Vital Signs Temp Pulse Pulse Resp BP BP Pulse Ox 05/16/22 10:30 125 H 20 143/97 H 95 05/16/22 08:30 106 H 18 133/76 95 05/16/22 07:27 96 05/16/22 06:17 36.8 C 113 H 18 153/72 H 88 L O2 Del Method 05/16/22 10:30 05/16/22 08:30 Room Air 05/16/22 07:27 Room Air 05/16/22 06:17 Room Air Diagnostic Findings Chest X-Ray 05/16/22 06:51 SINGLE VIEW CHEST CLINICAL HISTORY: Sepsis. FINDINGS: An AP, portable, upright chest radiograph is compared to study dated 07/31/2021 and correlated with chest CT dated 05/26/2021. A hiatal hernia is noted. The heart is mildly enlarged noting atherosclerotic calcification of the thoracic aorta. The pulmonary vasculature is noncongested. Chronic interstitial thickening similar to previous. There is bibasilar scarring/atelectasis. The lungs and pleural spaces are otherwise clear. No pneumothorax is seen. The skeletal structures are osteopenic. The bony thorax is grossly intact. Degenerative change is noted in the shoulders and spine. IMPRESSION: 1. Cardiomegaly with no active disease in the chest. 2. Hiatal hernia. ACT 112: Negative or not required by law. Electronically signed by: Joon Borges M.D. 05/16/2022 7:36 AM Chest CTA 05/16/22 08:15 CHEST CTA for PULMONARY ARTERIES CT DOSE: 725.63 mGy.cm HISTORY: Shortness of breath. TECHNIQUE: Multiaxial CT images of the chest were performed following the intr avenous administration of contrast to evaluate the pulmonary arteries. Maximal intensity projection images were also obtained. A dose lowering technique was utilized adhering to the principles of ALARA. COMPARISON STUDY: Chest CTA 05/26/2021. FINDINGS: The visualized liver, spleen, and adrenal glands are unremarkable. Moderate to large hiatus hernia, unchanged. Normal thyroid gland. No mediastinal or hilar lymphadenopathy. No pleural or pericardial effusions. Normal caliber esophagus. The heart remains borderline enlarged. Mild bilateral gynecomastia. Normal caliber thoracic aorta with no evidence for a dissection. Moderate to severe coronary artery calcifications are noted. No evidence for right-sided heart strain. A few small nonocclusive linear filling defects within the right lower lobe pulmonary arteries consistent with nonocclusive chronic embolus. This has significantly improved compared to the prior study. Otherwise, no additional filling defects within the pulmonary arteries to suggest an acute pulmonary embolus. No acute fractures identified. Mild to moderate diffuse bronchial wall thickening. This has slightly progressed and may represent a bronchitis. Otherwise, the central airways are patent. No pneumothorax. No new focal lung consolidations to suggest a pneumonia. There are few punctate calcified granulomas within the lungs. IMPRESSION: 1. A few small nonocclusive linear filling defects within the right lower lobe pulmonary arteries consistent with nonocclusive chronic embolus. This has significantly improved compared to the prior study. Otherwise, no additional filling defects within the pulmonary arteries to suggest an acute pulmonary embolus. 2. Mild to moderate diffuse bronchial wall thickening which has progressed and may represent a bronchitis. 3. No focal lung consolidations to suggest a pneumonia. 3. Moderate to large hiatus hernia, unchanged. ACT 112: Negative or not required by law. Electronically signed by: Asaf Eason M.D. 05/16/2022 9:36 AM Medications Administered Medication List Discontinued Medications Apixaban (Apixaban 5 Mg Tablet) 5 mg PO NOW STA Stop: 05/16/22 11:05 Last Admin: 05/16/22 11:27 Dose: 5 mg Documented By: SR Diltiazem HCl (Diltiazem Hcl 300 Mg Capcr) 300 mg PO NOW STA Stop: 05/16/22 11:05 Last Admin: 05/16/22 11:26 Dose: 300 mg Documented By: Sodium Chloride (Nss 1000ml) 1,000 mls @ 999 mls/hr IV .Q1H1M ONE Stop: 05/16/22 09:15 Last Infusion: 05/16/22 09:00 Dose: 0 mls/hr Documented By: Admin: 05/16/22 08:28 Dose: 999 mls/hr Documented By: LEISA Sodium Chloride (Nss 1000ml) 1,000 mls @ 999 mls/hr IV .Q1H1M ONE Stop: 05/16/22 11:27 Last Admin: 05/16/22 11:33 Dose: 999 mls/hr Documented By: SR Ceftriaxone Sodium (Rocephin) 2,000 mg in 70 mls @ 140 mls/hr IV NOW STA Stop: 05/16/22 10:56 Last Admin: 05/16/22 11:40 Dose: Not Given Documented By: SR Ioversol (Optiray 320 500ml) 83 ml IV ONCE ONE Stop: 05/16/22 09:15 Last Admin: 05/16/22 10:17 Dose: Not Given Documented By: LEISA Potassium Chloride (Potassium Chloride Crtab 20 Meq Tabcr) 40 meq PO NOW STA Stop: 05/16/22 10:43 Last Admin: 05/16/22 11:26 Dose: 40 meq Documented By: SR ECG Additional Comments: Atrial fibrillation with RVR, ventricular rate 116 bpm, QTC 525 ms, anterior lateral T wave inversions V3 to V6. This is unchanged from review of July 2021 electrocardiogram. This was reviewed by me. COVID-19 Results Results COVID-19 Adm Lab Results: RBC 4.35 M/uL (4.70-6.10) L 05/16/22 WBC 10.52 K/ul (4.8-10.8) 05/16/22 Hgb 13.4 g/dl (14.0-18.0) L 05/16/22 Hct 40.6 % (42.0-52.0) L 05/16/22 Plt Count 228 K/uL (130-400) 05/16/22 Neutrophils (%) (Auto) 79.7 % 05/16/22 Lymphocytes (%) (Auto) 8.4 % 05/16/22 Monocytes # (Auto) 0.92 K/uL (0.11-0.59) H 05/16/22 Eosinophils # (Auto) 0.22 K/uL (0-0.50) 05/16/22 Immature Granulocyte % (Auto) 0.7 % 05/16/22 Neutrophils # (Auto) 8.39 K/uL (1.40-6.50) H 05/16/22 Lymphocytes # (Auto) 0.88 K/uL (1.2-3.4) L 05/16/22 Monocytes # (Auto) 0.92 K/uL (0.11-0.59) H 05/16/22 Eosinophils # (Auto) 0.22 K/uL (0-0.50) 05/16/22 Basophils # (Auto) 0.04 K/uL (0-0.2) 05/16/22 Immature Granulocyte # (Auto) 0.07 K/uL (0.01-0.20) 3 Na 141 mmol/L (136-145) 05/16/22 K 3.6 mmol/L (3.5-5.1) 05/16/22 Cl 102 mmol/L (98-107) 05/16/22 CO2 31 mmol/L (21-32) 05/16/22 Anion Gap 8 (3-11) 05/16/22 BUN 22 mg/dl (6-23) 05/16/22 Creatinine 1.12 mg/dl (0.6-1.4) 05/16/22 BUN/Creatinine Ratio 19.6 (10-20) 05/16/22 Glucose Level 94 mg/dl (70-99(Fasting)) 05/16/22 Ca 9.5 mg/dl (8.5-10.1) 05/16/22 Total Bilirubin 0.6 mg/dl (0.2-1.0) 05/16/22 Direct Bilirubin 0.1 mg/dl (0-0.2) 05/16/22 AST/SGOT 14 U/L (13-39) 05/16/22 ALT/SGPT 16 U/L (7-52) 05/16/22 Alkaline Phosphatase 55 U/L (34-104) 05/16/22 Total Protein 6.2 gm/dl (6.0-8.3) 05/16/22 Albumin 3.6 gm/dl (3.4-5.0) 05/16/22 Procalcitonin 0.05 ng/ml (0-0.5) 05/16/22 D-Dimer 290 ug/L FEU (0-500) 05/16/22 PTT 23.3 Seconds (21.0-31.0) 05/16/22 INR 1.0 (0.9-1.1) 05/16/22 COVID-19 PCR NEGATIVE (Negative) 05/16/22 Influenza Virus Type A (PCR) Negative (Neg) 05/16/22 Influenza Virus Type B (PCR) Negative (Neg) 05/16/22 Chest X-Ray 05/16/22 Code Status & VTE Plan Code Status FULL CODE VTE Prophylaxis Plan VTE Prophylaxis will be ordered: No Reason for no VTE drug order: Treatment not indicated Supervising Physician Co-Signing Physician Notes I have seen and examined the patient and have discussed the case with the provider above. I agree with the assessment and plan as stated with the following exceptions. 81 yo M presents with worsening difficulty breathing and wheezing over the past several days. He reports a functional decline and exercise intolerance since Winter 2018 when he had an abnormal flu which he feels retrospectively was covid-19. Since that time, he was diagnosed with PMR and placed on low dose prednisone with improvement. He reports intermittent flares of difficulty breathing, with this one being the worst it has gotten. He denies needing to seek medical attention at the ER previously. He describes nasal blockage overnight that is now resolved, and feels that his throat was full and irritated in the tracheal area. He reports I feel like the mucosa is inflamed. He takes Flonase and Astelin nasal spray but denies a history of allergies. He denies fevers, chills, or sick contacts. He was found to be in afib with RVR. He is already taking apixaban for chronic PE, which is present on CT chest above. This is improved from prior study. Labs were also reviewed and there is no leukocytosis, chemistry is within normal limits, elevated lactate is present of 3.4. LFTs normal and trop normal x 2. There is no evidence of volume overload on exam and BNP is normal. Exam otherwise reveals a morbidly obese man in NAD who is not working to breathe. ENT exam is normal with no sinus TTP, no LAD, normal OP mucosa without tonsillar enlargement. Neck is large in circumference. He is mentating clearly and slightly hard of hearing. He has clear lungs to auscultation throughout. Heart rate and rhythm is irregular, and tachycardic. S1/2 heard with no evidence of murmur. Abdomen is protuberant, soft, and not distended or tender. There is no peripheral edema present. This is an 81 yo M admitted for new onset atrial fibrillation with rapid ventricular response, likely related to acute bronchitis in the setting of known-but improved-PE. He is already on apixaban which was continued. He is also on diltiazem, which he missed this morning, and which was given. Cont monitoring his heart rate and consider diltiazem drip if needed. TSH is WNL. Cardiology consulted. Agree with plan for supportive care including a slightly higher dose of prednisone for the next few days. From his description of symptoms, he appears to almost be having an allergic reaction to something, versus some disruption of his immune system. It is unclear if that is present now vs simply a URI caused by a circulating virus in the community. We discussed the importance of seeing an interlocker after discharge to explore this further. He agreed and was given Dr. Rice name. DO Shayan
[2022-05-16] MEDS ORDERED: GLUCOSE 10 TAB/TUBE PO PRN (13:38)
[2022-05-16] MEDS ORDERED: ACETAMINOPHEN 325 MG TAB PO PRN (13:38)
[2022-05-16] MEDS ORDERED: POLYETHYLENE (MIRALAX) 17 GM PACK PO PRN (13:38)
[2022-05-16] MEDS ORDERED: GLUCOSE 40% GEL 15 GM TUBE PO PRN (13:38)
[2022-05-16] MEDS ORDERED: PROMETHAZINE HCL 6.25 MG in SODIUM CHLORIDE 0.9% 50 ML IV PRN (13:38)
[2022-05-16] MEDS ORDERED: MAGNESIUM HYDROXIDE SUSP 30 ML UDC PO PRN (13:38)
[2022-05-16] MEDS ORDERED: ALUMINUM/MAGNESIUM SUSP 30 ML UDC PO PRN (13:38)
[2022-05-16] MEDS ORDERED: DEXTROSE 50% 50 ML SYRINGE IV PRN (13:38)
[2022-05-16] MEDS ORDERED: GLUCAGON FOR INJ 1 MG VIAL SQ PRN (13:38)
[2022-05-16] MEDS ORDERED: LEVALBUTEROL HCL 0.63 MG/3 ML NEB NEB PRN (13:38)
[2022-05-16] MEDS ORDERED: predniSONE 20 MG TAB PO STA (13:38)
[2022-05-16] MEDS ORDERED: CARBOHYDRATES FOR HYPOGLYCEMIA PO PRN (13:38)
[2022-05-16] MEDS ORDERED: guaiFENesin 600 MG TABCR PO STA (13:51)
--- NOTE | 2022-05-16 14:07 | Cardiology Consultation ---
Date of Consultation May 16, 2022 Assessment & Plan (1) Sinus tachycardia: (2) Premature atrial contractions: (3) Acute viral bronchitis: (4) Bilateral pulmonary embolism: Plan Case discussed with Dr. Callahan. Refer to his note for plan of care. Supervising Physician Co-Signing Physician Notes Cardiology attending: I personally performed a history and physical exam. Agree with findings and plan as outlined by KEYONA De La Garza with additions as noted below. Subjective: Patient states he has had intermittent respiratory issues over the last year, worse over the last 3 days. No subjective palpitations. Although initial EKG and telemetry suggest atrial fibrillation. On further review, especially now that his heart rate is under better control, this appears to be sinus rhythm with frequent supraventricular and ventricular ectopy. During his echocardiogram, Doppler assessment was certainly consistent with a sinus mechanism. In comparison to his prior outpatient EKG tracings, the p attern of supraventricular ectopy is relatively unchanged. Physical exam: Cardiovascular tachycardic, ectopy noted, no rales or rhonchi, no lower extremity edema Data: Summary transthoracic echocardiogram performed 05/16/2022 reviewed minimally: The study is technically adequate for the evaluation of the referral indication. Sinus tachycardia with frequent ventricular contractions present during echocardiogram study. There is normal left ventricular wall thickness. The left ventricular wall motion is normal. The left ventricle is hyperdynamic. Ejection Fraction = 65-70%. Aortic valve sclerosis mild, without significant aortic valvular stenosis. Doppler findings do not suggest pulmonary hypertension. EKG tracings performed x3 thus far revealed sinus tachycardia with frequent and consecutive premature atrial contractions. Impression: -As noted above. -Continue Eliquis for chronic pulmonary embolism, thrombus burden reportedly decreased compared to the previous study. -Continue prior to hospital treatment diltiazem. -Add low-dose metoprolol for further heart rate control while acutely ill with suspected viral respiratory illness. History of Present Illness Reason for Consultation: Atrial fibrillation with RVR Requesting Physician: Chilo sommer Attending Physician: Allison Downey DO History of Present Illness 81-year-old male who initially presented to the [facility] emergency department due to shortness of breath x1 day and URI symptoms x4 days. Denies OTC medications. Wears an apple watch which has been picking up as atrial fibrillation. Takes Eliquis due to a history of multiple segmental pulmonary embolisms that was diagnosed 05/2021. CT of the chest showed "A few small nonocclusive linear filling defects within the right lower lobe pulmonary arteries consistent with nonocclusive chronic embolus. This has significantly improved compared to the prior study. Otherwise, no additional filling defects within the pulmonary arteries to suggest an acute pulmonary embolus". EKG: Atrial fibrillation with heart rates in the 110s Labs: Mild anemia, stable. Renal function stable. Potassium low normal, 3.6 (supplemented). Lactate elevated 3.4>>2.1. HS Trop negative x2, 16.1>>18.6, BNP normal. COVID, flu, and RSV negative Echo: Pending * Patient seen and examined at bedside. in the room. Telemetry: A. fib 120s to 130s. Upon entrance into the room patient resting supine in bed having echo completed. No acute distress. Denies any shortness of breath. No exertional chest pain. Asymptomatic with his atrial fibrillation. No palpitations, dizziness or syncope. Main concern is his nasal congestion. States that he was never short of breath he just had a hard time breathing due to the congestion. Denies postnasal drip. PAST MEDICAL HISTORY: 1.Atrial and ventricular ectopy, improvedwith the addition of beta-serenity/CCB therapy. 2.Symptomatic and asymptomatic paroxysmal SVT 3.Ventricular tachycardiavia Zio monitoring 4.Preserved LV systolic function 5.Exertional dyspnea, attributed by the patient to be secondary to deconditioning. Nonischemic Nuclear stress 05/2021 6.Abnormal EKG 7.Hypertension 8.Dyslipidemia 9.Esophagitis and a hiatal hernia, on omeprazole. 10.Abnormal SPEP and serum immunofixation. 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 Chronic Pulmonary Embolism, on Eliquis- dx 05/2021 Allergies Allergy/AdvReac Type Severity Reaction Status Date / Time levothyroxine Allergy Intermediate HIVES,LIPS Verified 05/16/22 10:41 SWELLING hydrocodone Allergy Unknown Unknown Verified 05/16/22 10:41 amoxicillin [From Augmentin] AdvReac Severe Diarrhea Verified 05/16/22 10:41 clavulanic acid AdvReac Severe Diarrhea Verified 05/16/22 10:41 [From Augmentin] codeine AdvReac Intermediate "I GOT Verified 05/16/22 10:41 REALLY SICK" metformin AdvReac Intermediate GI SYMPTOMS Verified 05/16/22 10:41 Home Medications Medication Instructions Recorded Confirmed Type atorvastatin 20 mg tablet 20 mg PO QAM 08/08/18 05/16/22 History calcium carbonate 600 mg-vitamin 1 cap PO QAM 05/03/19 05/16/22 History D3 5 mcg (200 unit) capsule (Calcium 600 + D(3)) azelastine 205.5 mcg (0.15 %) 1 spray intranasal HS 05/26/21 05/16/22 History nasal spray ferrous sulfate 325 mg (65 mg 325 mg PO 4XWK 05/26/21 05/16/22 History iron) tablet (iron) fluticasone propionate 50 2 spray intranasal DAILYBB 05/26/21 05/16/22 History mcg/actuation nasal spray,suspension multivitamin 1 tab PO 3XWK 05/26/21 05/16/22 History prednisone 10 mg tablet 10 mg PO DAILY 05/26/21 05/16/22 History apixaban 5 mg tablet (Eliquis) 5 mg PO AMHS 07/31/21 05/16/22 History metformin 500 mg tablet,extended 500 mg PO DAILYBB 07/31/21 05/16/22 History release 24 hr triamterene 37.5 0.5 tab PO QAM 07/31/21 05/16/22 History mg-hydrochlorothiazide 25 mg tablet cholecalciferol (vitamin D3) 125 125 mcg PO DAILY 05/16/22 05/16/22 History mcg (5,000 unit) tablet (Vitamin D3) diltiazem HCl 300 mg 300 mg PO DAILY 05/16/22 05/16/22 History capsule,extended release 24 hr (Cardizem CD) irbesartan 150 mg tablet 300 mg PO HS 05/16/22 05/16/22 History potassium chloride 10 mEq 10 meq PO BID 05/16/22 05/16/22 History tablet,extended release(part/cryst) prednisone 2.5 mg tablet 2.5 mg PO DAILY 05/16/22 05/16/22 History Patient History Medical History (Updated 05/16/22 @ 16:20 by Tono Callahan DO) Allergic rhinitis Arrhythmia Bronchitis 02/2019-TREATED Difficulty swallowing HX-RESOLVED PER PT DVT (deep venous thrombosis) LEFT LOWER LEG 2019-AFTER STOPPED TAKING ASPIRIN FOR 6 [id number] SINCE NAD NO ISSUES Dyslipidemia GERD (gastroesophageal reflux disease) Hearing deficit HTN (hypertension) Osteoarthritis Trochanteric bursitis, right hip Surgical History History of bilateral cataract extraction History of colonoscopy with polypectomy History of esophagogastroduodenoscopy (EGD) History of tooth extraction Family History (Updated 05/16/22 @ 10:38 by Sherri Fitch PA-C) Mother Cancer Melanoma Father AAA (abdominal aortic aneurysm) Parkinson disease Other No family history of adverse response to anesthesia Social History Smoking Status: Former smoker Tobacco Type: Cigarettes Second Hand Exposure: No; Hx Alcohol Use: Yes Alcohol type: hard liquor Hx Substance Use: No Preferred Language: Swedish Communication Ability: Effective [employer] Lead Required: No Beliefs That Will Affect Care: None marital status: Current Living Situation: Spouse How many Children do You have: 0 Feels Safe at Home: Yes Assistive Devices: None Review of Systems Review of Systems: All systems reviewed & are unremarkable except as noted in HPI & below Physical Exam Constitutional: WD/WN, vitals as above no acute distress Eyes: PERRL, conjunctivae normal, anicteric sclerae Neck: normal visual inspection and trachea midline Respiratory: normal respiratory effort; no labored breathing and no cough Auscultation: + wheezes; no rales and no rhonchi Cardiovascular: Rate/Rhythm: + tachycardic and + irregularly irregular Heart Sounds: normal S1 and normal S2; no murmur Vessels: no JVD Extremities: no edema Gastrointestinal (Abdomen): normal bowel sounds, soft, nontender, no hepatosplenomegaly Skin: no rashes, warm and dry Psychiatric: A+Ox3, euthymic affect Results & Data ([facility]) Vital Signs (Past 12 Hours) Vital Signs Temp Pulse Pulse Resp BP BP Pulse Ox 05/16/22 10:30 125 H 20 143/97 H 95 05/16/22 08:30 106 H 18 133/76 95 05/16/22 07:27 96 05/16/22 06:17 36.8 C 113 H 18 153/72 H 88 L O2 Del Method 05/16/22 10:30 05/16/22 08:30 Room Air 05/16/22 07:27 Room Air 05/16/22 06:17 Room Air Laboratory Results Cardiac Enzymes 05/16/22 05/16/22 05/16/22 Range/Units 07:10 07:10 12:21 AST 14 (13-39) U/L Troponin I High Sens 16.1 18.6 (0-20) pg/ml B-Natriuretic Peptide 85 (0-100) pg/ml Coagulation 05/16/22 05/16/22 Range/Units 07:10 07:10 PT 10.5 (9.0-12.0) Seconds APTT 23.3 (21.0-31.0) Seconds B-Natriuretic Peptide 85 (0-100) pg/ml CBC 05/16/22 Range/Units 07:10 WBC 10.52 (4.8-10.8) K/ul RBC 4.35 L (4.70-6.10) M/uL Hgb 13.4 L (14.0-18.0) g/dl Hct 40.6 L (42.0-52.0) % Plt Count 228 (130-400) K/uL Neut # (Auto) 8.39 H (1.40-6.50) K/uL Lymph # (Auto) 0.88 L (1.2-3.4) K/uL [place] # (Auto) 0.92 H (0.11-0.59) K/uL Eos # (Auto) 0.22 (0-0.50) K/uL Baso # (Auto) 0.04 (0-0.2) K/uL Comprehensive Metabolic Panel 05/16/22 05/16/22 Range/Units 07:10 08:25 Sodium 141 (136-145) mmol/L Potassium 3.5 3.6 (3.5-5.1) mmol/L Chloride 102 (98-107) mmol/L Carbon Dioxide 31 (21-32) mmol/L BUN 22 (6-23) mg/dl Creatinine 1.12 (0.6-1.4) mg/dl Glucose 94 (70-99(Fasting)) mg/dl Calcium 9.5 (8.5-10.1) mg/dl Direct Bilirubin 0.1 (0-0.2) mg/dl AST 14 (13-39) U/L ALT 16 (7-52) U/L Alkaline Phosphatase 55 (34-104) U/L Total Protein 6.2 (6.0-8.3) gm/dl Albumin 3.6 (3.4-5.0) gm/dl Intake and Output 05/15/22 05/16/22 05/16/22 22:59 06:59 14:59 Intake Total 1000 / 1000 Balance 1000 / 1000 Intake: IV 1000 / 1000 Sodium Chloride 0.9% 1000ML 1, 1000 / 1000 000 ml @ 999 mls/hr IV .Q1H1M ONE Rx#:[id number] Other: Weight 99 kg 99 kg Weight Measurement Method Chair Scale Patient Weight 05/17/22 06:59 Weight 99 kg
--- NOTE | 2022-05-16 14:14 | Electrocardiogram Report ---
Test Reason : Blood Pressure : / mmHG Vent. Rate : 116 BPM Atrial Rate : 116 BPM P-R Int : 120 ms QRS Dur : 076 ms QT Int : 272 ms P-R-T Axes : 045 039 -25 degrees QTc Int : 378 ms Sinus tachycardia with Premature atrial complexes Abnormal ECG When compared with ECG of 31-JUL-2021 10:11, Vent. rate has increased BY [address] no longer elevated in Inferior leads T wave inversion less evident in Anterior leads Confirmed by Logan Varner ([id number]) on 05/16/2022 2:14:33 PM Referred By: REFERRED SELF Confirmed By:Logan Varner
--- NOTE | 2022-05-16 14:18 | Electrocardiogram Report ---
Test Reason : Blood Pressure : / mmHG Vent. Rate : 128 BPM Atrial Rate : 105 BPM P-R Int : 000 ms QRS Dur : 062 ms QT Int : 314 ms P-R-T Axes : 000 039 256 degrees QTc Int : 458 ms Atrial fibrillation with rapid ventricular response with premature ventricular or aberrantly conducte d complexes Abnormal ECG When compared with ECG of 16-MAY-2022 06:26, (unconfirmed) Atrial fibrillation has replaced Sinus rhythm T wave inversion more evident in Anterior leads Confirmed by Logan Varner ([id number]) on 05/16/2022 2:17:41 PM Referred By: REFERRED SELF Confirmed By:Logan Varner
--- NOTE | 2022-05-16 14:26 | Electrocardiogram Report ---
Test Reason : Blood Pressure : / mmHG Vent. Rate : 116 BPM Atrial Rate : 138 BPM P-R Int : 000 ms QRS Dur : 068 ms QT Int : 378 ms P-R-T Axes : 000 035 -42 degrees QTc Int : 525 ms Sinus tachycardia with frequent , and consecutive Premature atrial complexes Cannot rule out Inferior infarct , age undetermined T wave abnormality, consider anterolateral ischemia Abnormal ECG When compared with ECG of 16-MAY-2022 08:24, (unconfirmed) No significant change was found Confirmed by Logan Varner ([id number]) on 05/16/2022 2:26:00 PM Referred By: REFERRED SELF Confirmed By:Logan Varner
[2022-05-16] MEDS: ATORVASTATIN 20 MG TAB PO SCH (15:35)
[2022-05-16] MEDS: INSULIN ASPART PER UNIT SC SCH ×3 (15:36→21:28)
[2022-05-16] MEDS: TRIAMTERENE/HCTZ 37.5/25MG TAB PO SCH (15:36)
[2022-05-16] MEDS: METOPROLOL TARTRATE 25 MG TAB PO SCH ×2 (16:02→21:09)
[2022-05-16] MEDS: POTASSIUM CHLORIDE 10 MEQ TABCR PO SCH (18:26)
[2022-05-16] MEDS: LEVALBUTEROL HCL 0.63 MG/3 ML NEB NEB SCH (19:49)
[2022-05-16] MEDS ORDERED: MELATONIN 3 MG TAB PO PRN (20:46)
[2022-05-16] MEDS ORDERED: IRBESARTAN 150 MG TAB PO SCH (21:00)
[2022-05-16] MEDS ORDERED: AZELASTINE HCL 0.1% NASAL 200 SPRAYS/27,400 MCG BTL SCH (21:00)
[2022-05-16] MEDS: guaiFENesin 600 MG TABCR PO SCH (21:09)
[2022-05-16] MEDS: APIXABAN 5 MG TABLET PO SCH (21:09)
[2022-05-17] MEDS: METOPROLOL TARTRATE 25 MG TAB PO SCH ×2 (04:03→08:30)
[2022-05-17] MEDS ORDERED: FLUTICASONE PROPIONATE NA SPR 16 GM BTL SCH ×2 (06:30→12:00)
[2022-05-17] MEDS: LEVALBUTEROL HCL 0.63 MG/3 ML NEB NEB SCH ×2 (07:04→13:05)
[2022-05-17] MEDS: INSULIN ASPART PER UNIT SC SCH ×2 (07:54→11:45)
[2022-05-17] MEDS: TRIAMTERENE/HCTZ 37.5/25MG TAB PO SCH (08:31)
[2022-05-17] MEDS: POTASSIUM CHLORIDE 10 MEQ TABCR PO SCH (08:31)
[2022-05-17] MEDS: APIXABAN 5 MG TABLET PO SCH (08:32)
[2022-05-17] MEDS: ATORVASTATIN 20 MG TAB PO SCH (08:33)
[2022-05-17] MEDS: guaiFENesin 600 MG TABCR PO SCH (08:33)
--- NOTE | 2022-05-17 08:33 | Hospitalist Progress Note ---
Date of Service May 17, 2022 Assessment & Plan (1) Acute viral bronchitis: (2) Atrial fibrillation with RVR: (3) Lactic acidosis: (4) Hx pulmonary embolism: Plan 81 yo male who has a significant past medical history of SVT, atrial and ventricular ectopy, history of multiple segmental PE on Eliquis therapy, PMR on chronic prednisone, T2DM, hyperlipidemia, vertebral artery occlusion, male hypogonadism and iron deficiency anemia who presents to ED secondary to URI symptoms x3 to 4 days and difficulty breathing x1 day. Acute viral bronchitis Treated with oral prednisone 40 mg daily, Mucinex 1,200 mg twice daily Pulmonary toilet with lev albuterol nebulizer 3 times daily and as needed; incentive spirometry Given duration of symptoms, negative procalcitonin and no consolidation on imaging do not feel antibiotics are currently warranted Patient is on chronic 12.5 mg of prednisone secondary to PMR we will place this on hold, this will need to be resumed once prednisone course is complete Atrial fibrillation with RVR History of PSVT, atrial and ventricular ectopy Follows [facility] cardiology Last echocardiogram July 2021 which revealed EF 65%, mild aortic valve sclerosis Patient with intermittent episodes of Atrial fibrillation in ER Patient anticoagulated with Eliquis due to history of PE, he has not missed a dose in the last month Currently he is not symptomatic of heart rate and bp adequate Home diltiazem restarted Consult cardiology Echocardiogram obtained Sinus tachycardia with frequent ventricular contractions present during echo study. There is normal LV wall thickness. LV wall motion is normal. LV is hyperdynamic. EF 65 to 70%. Aortic valve sclerosis mild, without significant aortic valvular stenosis. Doppler findings do not suggest pulmonary hypertension. Cardiology reviewed - not likely afib w/ rvr but sinus tachycardia w/ frequent PACs metoprolol added Recommend to DC on met. succinate 25 mg bid in addition to home diltiazem HTN continue diltiazem, irbesartan and triamterene/hctz monitor closely HLD continue statin Hx of PE on eliquis PMR previously followed vicente Zepeda under care of PCP on Prednisone 12.5mg daily, placed on hold while on tx for acute bronchitis home dose of 12.5mg of chronic pred will need to be resumed when bronchitis treatment finished T2DM controlled a1c 6.4 on 05/03/22 hold metformin 48 hrs in setting of contrast dye ac/hs accuchecks, correction novolog scale added DVT ppx: Eliquis Dispo: Plan to DC home FULL CODE PCP: Dr. Lana Eden Admission and Anticipated Discharge Date Admission Date: May 16, 2022 Subjective Pt seen in follow up of nasal congestion, bronchitis, tachycardia (concern for afib w/rvr) Currently lying in bed, in no acute distress. Reports that he already feels much better, and is inquiring about discharge. Denies any chest pain palpitations, or shortness of breath. Denies fevers chills, or significant cough. Review of Systems Review of Systems: All systems reviewed & are unremarkable except as noted in Subjective Physical Exam Physical Exam: Constitutional: WD/WN, male in NAD, on RA Head: Normocephalic, Atraumatic Eyes: PERRL, EOMI, conjunctivae normal, anicteric sclerae ENMT: external ear and nose normal Neck: trachea midline Respiratory: normal respiratory effort, lungs clear to auscultation, no rales, rhonchi. Cardiovascular: Irregular Chest: normal inspection of chest Abdomen: normal bowel sounds, soft, nontender Musculoskeletal: extremities motor strength 5/5 Skin: no rashes, warm and dry Neurologic: PERRL, EOMI, no face palsy, no dysarthria,moves all extremities Psychiatric: A+Ox3, euthymic affect Results & Data Results & Data ([facility]) Vital Signs (Past 12 Hours) Vital Signs Temp Pulse Pulse Resp BP Pulse Ox O2 Del Method 05/17/22 07:24 36.8 C 90 18 147/73 H 96 Room Air 05/17/22 06:41 92 H 05/17/22 07:04 89 18 94 Room Air 05/16/22 23:12 96 H 05/16/22 20:59 97 H 05/17/22 04:00 36.3 C L 75 18 128/79 91 Room Air 05/16/22 23:00 Room Air 05/16/22 20:40 36.9 C 99 H 20 161/81 H 93 Room Air 05/16/22 22:40 36.8 C 68 18 119/64 91 Room Air 05/16/22 20:38 36.9 C 99 H 20 161/81 H 93 Room Air 05/16/22 21:06 Room Air Laboratory Results 05/17/22 05/16/22 05/16/22 Range/Units 07:20 21:20 18:28 Potassium (3.5-5.1) mmol/L BUN (6-23) mg/dl Creatinine (0.6-1.4) mg/dl Est Cr Clr Drug Dosing ml/min Est GFR ( Amer) ml/min Est GFR (Non-Af Amer) ml/min BUN/Creatinine Ratio (10-20) Glucose (70-99(Fasting)) mg/dl POC Glucose 134 H 257 H 161 H (70-99) mg/dl Lactate (0.4-2.0) mmol/L AST (13-39) U/L ALT (7-52) U/L Alkaline Phosphatase (34-104) U/L Troponin I High Sens (0-20) pg/ml Total Protein (6.0-8.3) gm/dl Urine Color Urine Appearance (Clear) Urine pH (4.5-7.5) Ur Specific [place] (1.000-1.030) Urine Protein (Negative) Urine Glucose (UA) (Negative) Urine Ketones (Negative) Urine Blood (Negative) Urine Nitrite (Negative) Urine Bilirubin (Negative) Urine Urobilinogen (Negative) Ur Leukocyte Esterase (Negative) 05/16/22 05/16/22 05/16/22 Range/Units 14:51 12:23 12:21 Potassium (3.5-5.1) mmol/L BUN (6-23) mg/dl Creatinine (0.6-1.4) mg/dl Est Cr Clr Drug Dosing ml/min Est GFR ( Amer) ml/min Est GFR (Non-Af Amer) ml/min BUN/Creatinine Ratio (10-20) Glucose (70-99(Fasting)) mg/dl POC Glucose (70-99) mg/dl Lactate 1.6 2.1 H* (0.4-2.0) mmol/L AST (13-39) U/L ALT (7-52) U/L Alkaline Phosphatase (34-104) U/L Troponin I High Sens 18.6 (0-20) pg/ml Total Protein (6.0-8.3) gm/dl Urine Color Urine Appearance (Clear) Urine pH (4.5-7.5) Ur Specific [place] (1.000-1.030) Urine Protein (Negative) Urine Glucose (UA) (Negative) Urine Ketones (Negative) Urine Blood (Negative) Urine Nitrite (Negative) Urine Bilirubin (Negative) Urine Urobilinogen (Negative) Ur Leukocyte Esterase (Negative) 05/16/22 05/16/22 05/16/22 Range/Units 09:15 09:10 08:25 Potassium 3.6 (3.5-5.1) mmol/L BUN (6-23) mg/dl Creatinine (0.6-1.4) mg/dl Est Cr Clr Drug Dosing ml/min Est GFR ( Amer) ml/min Est GFR (Non-Af Amer) ml/min BUN/Creatinine Ratio (10-20) Glucose (70-99(Fasting)) mg/dl POC Glucose (70-99) mg/dl Lactate 3.4 H* (0.4-2.0) mmol/L AST (13-39) U/L ALT (7-52) U/L Alkaline Phosphatase (34-104) U/L Troponin I High Sens (0-20) pg/ml Total Protein (6.0-8.3) gm/dl Urine Color Yellow Urine Appearance Clear (Clear) Urine pH 7.5 (4.5-7.5) Ur Specific [place] 1.013 (1.000-1.030) Urine Protein Negative (Negative) Urine Glucose (UA) Negative (Negative) Urine Ketones Negative (Negative) Urine Blood Negative (Negative) Urine Nitrite Negative (Negative) Urine Bilirubin Negative (Negative) Urine Urobilinogen Negative (Negative) Ur Leukocyte Esterase Negative (Negative) 05/16/22 Range/Units 07:10 Potassium (3.5-5.1) mmol/L BUN 22 (6-23) mg/dl Creatinine 1.12 (0.6-1.4) mg/dl Est Cr Clr Drug Dosing 56.9 ml/min Est GFR ( Amer) 71.5 ml/min Est GFR (Non-Af Amer) 61.7 ml/min BUN/Creatinine Ratio 19.6 (10-20) Glucose 94 (70-99(Fasting)) mg/dl POC Glucose (70-99) mg/dl Lactate (0.4-2.0) mmol/L AST 14 (13-39) U/L ALT 16 (7-52) U/L Alkaline Phosphatase 55 (34-104) U/L Troponin I High Sens 16.1 (0-20) pg/ml Total Protein 6.2 (6.0-8.3) gm/dl Urine Color Urine Appearance (Clear) Urine pH (4.5-7.5) Ur Specific [place] (1.000-1.030) Urine Protein (Negative) Urine Glucose (UA) (Negative) Urine Ketones (Negative) Urine Blood (Negative) Urine Nitrite (Negative) Urine Bilirubin (Negative) Urine Urobilinogen (Negative) Ur Leukocyte Esterase (Negative) Medications Administered Current Inpatient Medications Acetaminophen (Acetaminophen 325 Mg Tab) 650 mg PO Q4H PRN PRN Reason: Pain or Fever Stop: 06/15/22 13:37 Al Hydrox/Mg Hydrox/Simethicone (Aluminum/Magnesium Susp 30 Ml Udc) 15 ml PO Q4H PRN PRN Reason: Dyspepsia Stop: 06/15/22 13:37 Apixaban (Apixaban 5 Mg Tablet) 5 mg PO AMHS [facility] Stop: 06/15/22 20:59 Last Admin: 05/16/22 21:09 Dose: 5 mg Atorvastatin Calcium (Atorvastatin 20 Mg Tab) 20 mg PO QAM [facility] Stop: 06/15/22 13:37 Last Admin: 05/16/22 15:35 Dose: 20 mg Azelastine HCl (Azelastine Hcl 0.1% Nasal 200 Sprays/27,400 Mcg Btl) 1 sprays NA HS [facility] Stop: 06/15/22 20:59 Last Admin: 05/16/22 21:10 Dose: 1 sprays Calcium/Vitamin D (Calcium 600mg + Vit D 400 Iu Tab) 1 tab PO QAM [facility] Stop: 06/16/22 08:59 Last Admin: 05/17/22 08:29 Dose: Not Given Dextrose (Dextrose 50% 50 Ml Syringe) 25 - 50 ml IV UD PRN; Protocol PRN Reason: Hypoglycemia Protocol Stop: 06/15/22 13:37 Diltiazem HCl (Diltiazem Hcl 300 Mg Capcr) 300 mg PO DAILY [facility] Stop: 06/16/22 08:59 Ferrous Sulfate (Ferrous Sulfate 325 Mg Tab) 325 mg PO DAILY [facility] Stop: 06/16/22 08:59 Last Admin: 05/17/22 08:29 Dose: Not Given Fluticasone Propionate (Fluticasone Propionate Na Spr 16 Gm Btl) 2 sprays NA DAILY@1200 [facility] Stop: 06/16/22 11:59 Glucagon (Glucagon For Inj 1 Mg Vial) 1 mg SQ UD PRN; Protocol PRN Reason: Hypoglycemia Protocol Stop: 06/15/22 13:37 Glucose (Glucose 40% Gel 15 Gm Tube) 15 - 30 gm PO UD PRN; Protocol PRN Reason: Hypoglycemia Protocol Stop: 06/15/22 13:37 Glucose (Glucose 10 Tab/Tube) 4 - 8 tab PO UD PRN; Protocol PRN Reason: Hypoglycemia Treatment Stop: 06/15/22 13:37 Guaifenesin (Guaifenesin 600 Mg Tabcr) 1,200 mg PO Q12 [facility] Stop: 06/15/22 20:59 Last Admin: 05/16/22 21:09 Dose: 1,200 mg Promethazine HCl 6.25 mg/ (Sodium Chloride) 50.25 mls @ 201 mls/hr IV Q6H PRN PRN Reason: Nausea And Vomiting Stop: 06/15/22 13:37 Insulin Aspart (Insulin Aspart Per Unit) 0 units SC ACHS [facility] Stop: 06/15/22 13:37 Last Admin: 05/17/22 07:54 Dose: Not Given Irbesartan (Irbesartan 150 Mg Tab) 300 mg PO HS [facility] Stop: 06/15/22 20:59 Last Admin: 05/16/22 21:09 Dose: 300 mg Levalbuterol HCl (Levalbuterol Hcl 0.63 Mg/3 Ml Neb) 0.63 mg NEB TIDR [facility]; Protocol Stop: 06/15/22 18:59 Last Admin: 05/17/22 07:04 Dose: 0.63 mg Levalbuterol HCl (Levalbuterol Hcl 0.63 Mg/3 Ml Neb) 0.63 mg NEB Q4H PRN; Protocol PRN Reason: sob/wheeze Stop: 06/15/22 13:37 Magnesium Hydroxide (Magnesium Hydroxide Susp 30 Ml Udc) 30 ml PO Q12H PRN PRN Reason: Constipation Stop: 06/15/22 13:37 Melatonin (Melatonin 3 Mg Tab) 3 mg PO HS PRN PRN Reason: Sleep Stop: 06/15/22 20:45 Last Admin: 05/16/22 21:09 Dose: 3 mg Metoprolol Tartrate (Metoprolol Tartrate 25 Mg Tab) 12.5 mg PO Q6H [facility] Stop: 06/15/22 14:59 Last Admin: 05/17/22 04:03 Dose: 12.5 mg Miscellaneous (Carbohydrates For Hypoglycemia ) 15 - 30 gm PO UD PRN PRN Reason: Hypoglycemia Protocol Stop: 06/15/22 13:37 Polyethylene Glycol (Polyethylene (Miralax) 17 Gm Pack) 17 gm PO DAILY PRN PRN Reason: Constipation Stop: 06/15/22 13:37 Potassium Chloride (Potassium Chloride 10 Meq Tabcr) 10 meq PO BID17 [facility] Stop: 06/15/22 16:59 Last Admin: 05/16/22 18:26 Dose: Not Given Prednisone (Prednisone 20 Mg Tab) 40 mg PO DAILY [facility] Stop: 06/16/22 08:59 Triamterene/Hydrochlorothiazide (Triamterene/Hctz 37.5/25mg Tab) 0.5 tab PO QAM [facility] Stop: 06/15/22 13:37 Last Admin: 05/16/22 15:36 Dose: Not Given Vitamin D (Cholecalciferol 5,000 Units 125 Mcg Tab) 5,000 units PO DAILY [facility] Stop: 06/16/22 08:59
[2022-05-17] MEDS ORDERED: dilTIAZem HCL 300 MG CAPCR PO SCH (09:00)
[2022-05-17] MEDS ORDERED: NON-FORMULARY MEDICATION (Ferrous Sulfate [Iron] 325 mg (65 mg iron) Tablet) PO SCH (09:00)
[2022-05-17] MEDS ORDERED: predniSONE 20 MG TAB PO SCH (09:00)
[2022-05-17] MEDS ORDERED: FERROUS SULFATE 325 MG TAB PO SCH (09:00)
[2022-05-17] MEDS ORDERED: [UNRECOGNIZED DRUG - OTHER] PO SCH (09:00)
[2022-05-17] MEDS ORDERED: CHOLECALCIFEROL 5,000 UNITS 125 MCG TAB PO SCH (09:00)
[2022-05-17] MEDS ORDERED: CALCIUM 600MG + VIT D 400 IU TAB PO SCH (09:00)
[2022-05-17 09:32] LABS: Basophils # (auto) 0.01 K/uL (0-0.2); Basophils % (auto) 0.1 %; Eosinophils # (auto) 0.01 K/uL (0-0.50); Eosinophils % (auto) 0.1 %; Hematocrit (blood only) 39.1 % (42.0-52.0); Hemoglobin 12.9 g/dl (14.0-18.0); Immature Granulocytes # (auto) 0.05 K/uL (0.01-0.20); Immature Granulocytes % (auto) 0.6 %; Lymphocytes # (auto) 0.76 K/uL (1.2-3.4); Mean Platelet Volume 11.9 fL (9.4-12.4); Monocytes # (auto) 0.38 K/uL (0.11-0.59); Monocytes % (auto) 4.5 %; Neutrophils # (auto) 7.24 K/uL (1.40-6.50); Neutrophils % (auto) 85.7 %; Platelet Count 232 K/uL (130-400); RDW Coefficient of Variation 13.9 % (11.5-14.5); RDW Standard Deviation 47.9 fL (36.4-46.3); Red Blood Count 4.16 M/uL (4.70-6.10); White Blood Count 8.45 K/ul (4.8-10.8)
[2022-05-17] MEDS ORDERED: COUGH DROP (SUGAR FREE) LOZ 24 LOZ/1 BOX BUCCAL STA (10:18)
[2022-05-17 11:36] LABS: BUN Creatinine Ratio 18.8 (10-20); Creatinine Clr Calc Pharmacy 54.5 ml/min; Est GFR (African American) 67.8 ml/min; Est GFR (Non-African American) 58.5 ml/min; Magnesium 2.3 mg/dl (1.7-2.4); Potassium 4.2 mmol/L (3.5-5.1)
--- NOTE | 2022-05-17 14:09 | Discharge Summary ---
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 Patient's is at bedside. He elicits over the last 3 to 4 days he developed sinus congestion and a wet productive cough. His symptoms have been worsening over the past 3 to 4 days. He has been taking Mucinex DM with minimal relief. His cough is productive of cream-colored sputum. He denies hemoptysis or purulent sputum. He states, "my nose is so congested I just cannot breathe." Last night when he went to bed at approximately 130 he was unable to sleep due to difficulty breathing secondary to sinus congestion, drainage in back of throat and coughing. He denies hernandez shortness of breath or gasping for air. He denies fever, chills, sweats, lightheadedness, dizziness, chest pain, palpitations, nausea, vomiting, abdominal pain, change in bowel or urinary habits. He has history of PMR and is on chronic prednisone therapy. He has chronic fatigue associated with this. He feels that he may have long-haul COVID as well. He denies any change in exertional capacity. At baseline he gets fatigued with easy tasks and this is unchanged. He denies any hernandez chest pain. He does have an apple watch at home that over the last couple weeks has noted his rhythm to be A. fib, but when he captures an EKG for 30 seconds it does not say A. fib. He has been taking his medications regularly and has not missed a single dose of his Eliquis. He did not take his medications yet this morning. His appetite has otherwise been okay. He denies any sick contacts. In ED patient was hemodynamically stable although tachycardic. Initial EKG revealed sinus tachycardia with ectopy however on monitor as well as future EKGs it does reveal intermittent atrial fibrillation with RVR. His CBC and CMP was unremarkable. His procalcitonin, troponin, BNP was WNL. His potassium was slightly low at 3.6. His D-dimer was normal. He did have a mild lactic acidosis at 2.5 and 3.4 respectively. His respiratory panel was negative. A CTA of chest was performed which revealed a nonocclusive chronic emboli, moderate diffuse bronchial wall thickening which may represent bronchitis. He did receive a fluid bolus in ED. According to ER provider patient was initially hypoxic at 88% but this has since resolved. Admission Exam Per Admitting Provider Constitutional: WD/WN, male, vitals as above, NAD, sitting up in bed, pleasant, conversing easily Head: Normocephalic, Atraumatic Eyes: PERRL, conjunctivae normal, anicteric sclerae ENMT: external ear and nose normal, oropharynx normal Neck: trachea midline, no thyromegaly normal visual inspection Respiratory: normal respiratory effort, lungs clear to auscultation, no rales, rhonchi. Left anterior chest wall wheezing appreciated, normal insp/exp effort, no accessory muscle use Cardiovascular: Irregular rate, irregular rhythm RRR, no murmur, no edema Vessels: no JVD or carotid bruit Chest: normal inspection of chest Abdomen: normal bowel sounds, soft, nontender, no hepatosplenomegaly Musculoskeletal: no cyanosis or clubbing, extremities motor strength 5/5 Skin: no rashes, warm and dry normal turgor Neurologic: PERRL, EOMI, accommodation nl, no face palsy, no dysarthria CN's II-XI intact bilaterally and moves all extremities Psychiatric: A+Ox3, euthymic affect Lymphatic: no cervical or axillary lymphadenopathy : deferred Principal Diagnosis Bronchitis, hypoxia Concern for possible A-fib with RVR, however patient in sinus tachycardia with frequent PACs Discharge Exam Constitutional: WD/WN, male in NAD, on RA Head: Normocephalic, Atraumatic Eyes: PERRL, EOMI, conjunctivae normal, anicteric sclerae ENMT: external ear and nose normal Neck: trachea midline Respiratory: normal respiratory effort, lungs clear to auscultation, no rales, rhonchi. Cardiovascular: Irregular Chest: normal inspection of chest Abdomen: normal bowel sounds, soft, nontender Musculoskeletal: extremities motor strength 5/5 Skin: no rashes, warm and dry Neurologic: PERRL, EOMI, no face palsy, no dysarthria,moves all extremities Psychiatric: A+Ox3, euthymic affect Discharge Data Allergies Allergy/AdvReac Type Severity Reaction Status Date / Time levothyroxine Allergy Intermediate HIVES,LIPS Verified 05/16/22 10:41 SWELLING hydrocodone Allergy Unknown Unknown Verified 05/16/22 10:41 amoxicillin [From Augmentin] AdvReac Severe Diarrhea Verified 05/16/22 10:41 clavulanic acid AdvReac Severe Diarrhea Verified 05/16/22 10:41 [From Augmentin] codeine AdvReac Intermediate "I GOT Verified 05/16/22 10:41 REALLY SICK" metformin AdvReac Intermediate GI SYMPTOMS Verified 05/16/22 10:41 Consultations 05/16/22 10:33 ED Decision to Admit Stat 05/16/22 11:45 Consult Cardiology Routine Ordered Studies 05/16/22 08:15 CT angio chest PE protocol Stat IMPRESSION: 1. A few small nonocclusive linear filling defects within the right lower lobe pulmonary arteries consistent with nonocclusive chronic embolus. This has significantly improved compared to the prior study. Otherwise, no additional eloy ling defects within the pulmonary arteries to suggest an acute pulmonary embolus. 2. Mild to moderate diffuse bronchial wall thickening which has progressed and may represent a bronchitis. 3. No focal lung consolidations to suggest a pneumonia. 3. Moderate to large hiatus hernia, unchanged. 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 Acute viral bronchitis Treated with oral prednisone 40 mg daily, Mucinex 1,200 mg twice daily Pulmonary toilet with lev albuterol nebulizer 3 times daily and as needed; incentive spirometry Given duration of symptoms, negative procalcitonin and no consolidation on imaging do not feel antibiotics are currently warranted Patient is on chronic 12.5 mg of prednisone secondary to PMR we will place this on hold, this will need to be resumed once prednisone course is complete Atrial fibrillation with RVR History of PSVT, atrial and ventricular ectopy Follows [facility] cardiology Last echocardiogram July 2021 which revealed EF 65%, mild aortic valve sclerosis Patient with intermittent episodes of Atrial fibrillation in ER Patient anticoagulated with Eliquis due to history of PE, he has not missed a dose in the last month Currently he is not symptomatic of heart rate and bp adequate Home diltiazem restarted Consult cardiology Echocardiogram obtained Sinus tachycardia with frequent ventricular contractions present during echo study. There is normal LV wall thickness. LV wall motion is normal. LV is hyperdynamic. EF 65 to 70%. Aortic valve sclerosis mild, without significant aortic valvular stenosis. Doppler findings do not suggest pulmonary hypertension. Cardiology reviewed - not likely afib w/ rvr but sinus tachycardia w/ frequent PACs metoprolol added Recommend to DC on met. succinate 25 mg bid in addition to home diltiazem HTN continue diltiazem, irbesartan and triamterene/hctz monitor closely HLD continue statin Hx of PE on eliquis PMR previously followed vicente Zepeda under care of PCP on Prednisone 12.5mg daily, placed on hold while on tx for acute bronchitis home dose of 12.5mg of chronic pred will need to be resumed when bronchitis treatment finished T2DM controlled a1c 6.4 on 05/03/22 hold metformin 48 hrs in setting of contrast dye ac/hs accuchecks, correction novolog scale added Total Time Total Time Spent Total Time Spent (In Minutes): 40 Discharge Plan Discharge Items Patient Disposition: Home - Self-Care Reason For Visit: ACUTE BRONCHITIS, HYPOXIA, SOB Discharge Diagnosis: Bronchitis, hypoxia Concern for possible A-fib with RVR, however patient in sinus tachycardia with frequent PACs Activity: Per Instructions section Non-emergency contact: Primary Care Provider Call non-emergency contact if: you have any medication questions and your symptoms worsen Follow-up/Referrals: Lana Eden MD [Primary Care Provider] - (Date & Time 05/22/2022 11:00 AM Provider Lana Eden MD Department General Internal Medicine [facility] ) Diet: Carb Consistent or DM2 and Heart Healthy Addtl Attending Provider Instructions: Follow-up with your primary care doctor, the appointment was scheduled for you for May 22. Start taking metoprolol 25 mg twice a day, as prescribed -in addition to diltiazem which you have been already taking. Take prednisone 40 mg for next 3 days, then continue with your home dose of 12.5 mg. Continue taking guaifenesin for next 5 days. Pending Studies at Discharge: Yes Studies:: Final blood cultures Stand-Alone Forms: My [facility], Smoking Cessation Medications and DC Order Prescriptions: New metoprolol succinate 25 mg Tablet Extended Release 24 Hr 25 mg PO BID 30 Days Qty: 60 0RF prednisone 20 mg Tablet 40 mg PO DAILY 3 Days Qty: 6 0RF guaifenesin [Mucinex] 600 mg Tablet Extended Release 12hr 1,200 mg PO Q12 5 Days Qty: 20 0RF Continued atorvastatin 20 mg tablet 20 mg PO QAM Calcium 600 + D(3) 600 mg calcium- 200 unit Capsule 1 cap PO QAM multivitamin Tablet 1 tab PO 3XWK Rx Instructions: TAKES MON, WED, & FRI. prednisone 10 mg tablet 10 mg PO DAILY Rx Instructions: with 2.5mg for 12.5mg ferrous sulfate [iron] 325 mg (65 mg iron) Tablet 325 mg PO [id number] Rx Instructions: TAKES MON, WED, FRI, & SAT. fluticasone propionate 50 mcg/actuation spray,suspension 2 spray INTRANASAL DAILYBB azelastine 205.5 mcg (0.15 %) spray,non-aerosol 1 spray INTRANASAL HS cholecalciferol (vitamin D3) [Vitamin D3] 125 mcg (5,000 unit) Tablet 125 mcg PO DAILY prednisone 2.5 mg tablet 2.5 mg PO DAILY Rx Instructions: take with 10mg diltiazem HCl [Cardizem CD] 300 mg capsule,extended release 24hr 300 mg PO DAILY irbesartan 150 mg tablet 300 mg PO HS potassium chloride 10 mEq tablet,ER particles/crystals 10 meq PO BID triamterene-hydrochlorothiazid 37.5-25 mg tablet 0.5 tab PO QAM metformin 500 mg tablet extended release 24 hr 500 mg PO DAILYBB Eliquis 5 mg tablet 5 mg PO AMHS Discharge Orders: Discharge Order (Routine); Ordered 05/17/22 Ordered By: Franco Dugan/Other Patient Handouts: Understanding Tachycardia, ED About Arrhythmias Admission Data Admit Date/Time: 05/16/22 10:47 Attending Provider: Franco Valencia Admit Provider: Allison Downey Primary Care Provider: Lana Eden Other Providers: Allison Downey ; Tono Callahan Other Interventions: Discharge Summary Assessment (RN) Last Done: 05/17/22 14:23
--- NOTE | 2022-05-17 14:24 | Cardiology Progress Note ---
Date of Service May 17, 2022 Assessment & Plan (1) Sinus tachycardia: (2) Premature atrial contractions: (3) Acute viral bronchitis: (4) Bilateral pulmonary embolism: Plan Patient admitted for bronchitis and found to have non sustained runs of atrial tach and frequent ectopy. Metoprolol initiated in addition to home dose diltiazem 300 mg daily Atrial ectopy improved with this change. Patient tolerated without issues. Treatment for bronchitis also improving, per hospitalist. No further cardiac testing warranted. Discharge on metoprolol 25 mg BID and diltiazem 300 mg daily Continue all other meds including atorvastatin, apixaban given chronic PE, irbesartan, and triam/hctz for hypertension. Patient reports he follows with Dr. Virk. Cardiology f/u in about 4 weeks to recheck status with med changes. Case discussed with Dr. Callahan. Acceptable for discharge. TT send to hospitalist. Admission and Anticipated Discharge Date Admission Date: May 16, 2022 Supervising Physician Co-Signing Physician Notes Supervising Physician Attestation: I have personally performed a history and physical examination on the patient. I agree with the physician statistical assistant's findings and plan as documented with the following additions. Subjective: Wheezing improved. Patient states nasal congestion trending toward improvement Exam: Cardiovascular: Regular rhythm, no murmurs rubs or gallops, no edema Data: Telemetry reveals sinus rhythm with frequent supraventricular ectopic beats Assessment and Plan: Sinus rhythm with frequent PACs Hypertension -Stable for discharge from cardiac standpoint, with plans for metoprolol succinate 25 mg twice daily in addition to his prior to hospital treatment with diltiazem. -Anticipate blood pressure will improve as he is weaned from corticosteroids. -Continue Eliquis. Tono Callahan, DO Subjective Patient resting in bed comfortably. Family at bedside. Eager for discharge. Feeling well. Reports his breathing/SOB is back at baseline. No sense of palpitations or tachypalpitations. Tolerating metoprolol. No dizziness or lightheadedness. Review of Systems Review of Systems: All systems reviewed & are unremarkable except as noted in HPI & below Physical Exam Constitutional: WD/WN, vitals as above no acute distress Eyes: PERRL, conjunctivae normal, anicteric sclerae Neck: normal visual inspection and trachea midline Respiratory: normal respiratory effort; no labored breathing and no cough Auscultation: no rales, no rhonchi and no wheezes Cardiovascular: Rate/Rhythm: regular rate (occ ectopy ) Heart Sounds: normal S1 and normal S2; no murmur Vessels: no JVD Extremities: no edema Gastrointestinal (Abdomen): normal bowel sounds, soft, nontender, no hepatosplenomegaly Skin: no rashes, warm and dry Psychiatric: A+Ox3, euthymic affect Results & Data ([facility]) Vital Signs (Past 12 Hours) Vital Signs Temp Pulse Pulse Resp BP Pulse Ox O2 Del Method 05/17/22 13:06 87 16 95 Room Air 05/17/22 10:57 36.6 C 87 20 178/84 H 95 Room Air 05/17/22 07:55 Room Air 05/17/22 07:24 36.8 C 90 18 147/73 H 96 Room Air 05/17/22 06:41 92 H 05/17/22 07:04 89 18 94 Room Air 05/17/22 04:00 36.3 C L 75 18 128/79 91 Room Air Laboratory Results CBC 05/17/22 Range/Units 08:22 WBC 8.45 (4.8-10.8) K/ul RBC 4.16 L (4.70-6.10) M/uL Hgb 12.9 L (14.0-18.0) g/dl Hct 39.1 L (42.0-52.0) % Plt Count 232 (130-400) K/uL Neut # (Auto) 7.24 H (1.40-6.50) K/uL Lymph # (Auto) 0.76 L (1.2-3.4) K/uL [place] # (Auto) 0.38 (0.11-0.59) K/uL Eos # (Auto) 0.01 (0-0.50) K/uL Baso # (Auto) 0.01 (0-0.2) K/uL Comprehensive Metabolic Panel 05/17/22 Range/Units 08:22 Sodium 143 (136-145) mmol/L Potassium 4.2 (3.5-5.1) mmol/L Chloride 105 (98-107) mmol/L Carbon Dioxide 26 (21-32) mmol/L BUN 22 (6-23) mg/dl Creatinine 1.17 (0.6-1.4) mg/dl Glucose 160 H (70-99(Fasting)) mg/dl Calcium 9.0 (8.5-10.1) mg/dl Intake and Output 05/16/22 05/17/22 05/17/22 22:59 06:59 14:59 Intake Total 1200 / 2500 300 / 2500 Balance 1200 / 2500 300 / 2500 Intake: IV 1000 / 2000 Sodium Chloride 0.9% 1000ML 1, 1000 / 1000 000 ml @ 999 mls/hr IV .Q1H1M ONE Rx#:[id number] Oral 200 / 500 300 / 500 Other: Weight 99.1 kg 99.1 kg Weight Measurement Method Standing Scale Standing Scale Diagnostic Findings Summary transthoracic echocardiogram performed 05/16/2022 reviewed minimally: The study is technically adequate for the evaluation of the referral indication. Sinus tachycardia with frequent ventricular contractions present during echocardiogram study. There is normal left ventricular wall thickness. The left ventricular wall motion is normal. The left ventricle is hyperdynamic. Ejection Fraction = 65-70%. Aortic valve sclerosis mild, without significant aortic valvular stenosis. Doppler findings do not suggest pulmonary hypertension.
[2022-05-17] MEDS ORDERED: METOPROLOL SUCC 25MG EXT REL TAB PO SCH (21:00)
== END 2022-05-17 14:30 | disposition home or self-care (01) | DRG 202 ==
LOC: ED 06:10 → EDINP 10:47 → SUATTDRO 10:47 → 2W 20:35

== ENCOUNTER 2024-02-20 08:20 | Inpatient (IN) ==
--- NOTE | 2024-02-20 08:49 | Emergency Department Note ---
Impression & Plan Weakness, Leukocytosis ED Provider Note NAME: SANDI MORGAN AGE: 83 SEX: M : 1940 ARRIVES VIA: Ambulance INFORMANT: [Patient][] ED PROVIDER(S): [Joon Carrillo MD] CHIEF COMPLAINT: Weakness HISTORY OF PRESENT ILLNESS: The patient is an 83-year-old male who has had increasing weakness in the last month since being discharged from [facility]. During his hospitalization, he was diagnosed with A-fib. He was started on metoprolol as well as Eliquis. When the patient followed up with cardiology, they felt his metoprolol dose was too high. He was on 100 mg twice a day. In the last month, he has decreased to 50 mg twice a day but, the weakness has not changed. In addition, the patient has a diagnosis of polymyalgia rheumatica. Over the last several months, he has been weaning his prednisone, he is now down to 5 mg daily. There has been no cough or congestion. No shortness of breath, no diarrhea or urinary complaints. No fever. The patient has not fallen but feels weak and has to walk with a wider gait. His arms feel weak especially. The patient has lost around 30 pounds in the last 6 months, he states this is because he had an operation for a hiatal hernia and he has a hard time swallowing. He takes Reglan for this. In addition, the patient years ago was worked up for the possibility of myasthenia gravis. At the end of the workup, it was decided that he did not have this diagnosis. PMHx/PSHx/Social Hx: See Below PHYSICAL EXAM: GENERAL: Patient is in no acute distress. HEENT: No acute trauma, normocephalic atraumatic, mucous membranes moist, no nasal congestion. NECK: No stridor, no adenopathy, no meningismus, trachea is midline. LUNGS: Clear to auscultation bilaterally, no wheeze, no rhonchi, breath sounds equal. HEART: Irregular rhythm, no murmurs, normal rate. ABDOMEN: Soft, nontender, no peritonitis. EXTREMITIES: No cyanosis, full range of motion of all the joints without pain or difficulty. NEUROLOGIC: Oriented x 3, no acute motor or sensory deficits, no focal weakness. No speech slur, excellent historian, no facial droop. He does have some extremity shakiness but no cerebellar deficit or extremity drift. SKIN: No jaundice, no diaphoresis. DIFFERENTIAL DIAGNOSIS: Myasthenia gravis, medication reaction, anemia, electrolyte imbalance, withdrawal, among others. EMERGENCY DEPARTMENT PROCEDURES: MEDICAL DECISION MAKING: There is a slight leukocytosis, this could be consistent with infection or his steroid use. There was a normal hemoglobin and platelet count. No coagulopathy. No renal failure or significant electrolyte abnormality. No concerning liver enzyme elevation. Total CK was not elevated making rhabdomyolysis unlikely. Patient appeared to be in a euthyroid state. Random cortisol level was within acceptable range. Urinalysis did not show infection or hematuria. Respiratory bio fire was negative. Chest x-ray did not show pneumonia or CHF. Brain CT showed no acute bleed or mass effect. ECG showed a sinus rhythm with some PACs, no ST elevation. Cardiac enzyme testing x 1 was not consistent with acute cardiac injury. On exam, the patient did have some extremity tremor, there was no focal neurologic finding. No speech slur or facial droop. Patient presents with ongoing weakness for the last month. He has become so weak that he can hardly do any activity on his own outpatient. He did try to decrease his metoprolol dosing at the advice of his respooler but this has not helped. At this point, the cause for his increasing weakness is unclear. I do think he requires further inpatient workup. Patient would benefit from a neurology consult as well as potential MRI imaging. I did speak with the patient and case management, the on-call hospitalist was consulted. Prior/Outside records/notes reviewed: Today's EMS notes describing his presentation and transport to this hospital. ECG per my interpretation: Indication was weakness. ECG shows what appears to be a sinus rhythm with PACs. The rate is 78. There are inverted T waves across the anterior and inferior leads. No ST elevation. No PVCs. The QTc was 453. Compared to an ECG from 18 May 2022, the T wave changes are now present. Continuous Cardiac Monitoring per my interpretation: An order was placed for continuous cardiac monitoring. The monitor shows a rate of 75 with sinus rhythm and PACs. Imaging/x-ray results per my interpretation: Chest x-ray does not show mediastinal widening, pneumonia or pneumothorax. Chronic Medical/Social conditions affecting care: Advanced age. Care/Management discussed with: Case management, the on-call hospitalist Level of care consideration(s): After review of the information above and other included data: --I believe the patient requires escalation of care to admission DISPOSITION: Admission Past Med/Surg History Problem List (Updated 02/20/24 @ 16:37 by Joon Carrillo MD) Leukocytosis (Acute) Weakness (Acute) Progressive focal motor weakness Premature atrial contractions Sinus tachycardia Elevated lactic acid level (Acute) Hypoxemia (Acute) Lab test negative for COVID-19 virus (Acute) Hx pulmonary embolism Lactic acidosis Atrial fibrillation with RVR Acute viral bronchitis SOB (shortness of breath) (Acute) Cough (Acute) URI (upper respiratory infection) (Acute) A-fib (Acute) Bilateral pulmonary embolism (Acute) Trochanteric bursitis, right hip Esophagitis Elevated glucose H/O colonoscopy (Chronic) Superficial thrombophlebitis of left leg (Acute) Abnormal EKG Encounter for pre-operative examination Dysphagia Bursitis of hip, right HTN (hypertension) (Chronic) Dyslipidemia (Chronic) GERD (gastroesophageal reflux disease) (Chronic) Allergic rhinitis (Chronic) Medical History DVT (deep venous thrombosis) LEFT LOWER LEG 2018-AFTER STOPPED TAKING ASPIRIN FOR 6 [id number] SINCE NAD NO ISSUES Bronchitis 02/2019-TREATED Arrhythmia Osteoarthritis Difficulty swallowing HX-RESOLVED PER PT Hearing deficit Surgical History History of bilateral cataract extraction History of colonoscopy with polypectomy History of esophagogastroduodenoscopy (EGD) History of tooth extraction Family History Mother Cancer Melanoma Father AAA (abdominal aortic aneurysm) Parkinson disease Other No family history of adverse response to anesthesia Social History Smoking Status: Former smoker Tobacco Type: Cigarettes Second Hand Exposure: No; Do You Dip or Chew Tobacco: No; Hx Alcohol Use: No Hx Substance Use: No Preferred Language: Urdu Communication Ability: Effective 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 Beliefs That Will Affect Care: None marital status: Current Living Situation: Spouse How many Children do You have: 0 Feels Safe at Home: Yes Safety Concerns: Feels Safe At This Time Assistive Devices: None Allergies Allergies Allergy/AdvReac Type Severity Reaction Status Date / Time levothyroxine Allergy Intermediate HIVES,LIPS Verified 05/19/22 00:20 SWELLING hydrocodone Allergy Unknown Unknown Verified 05/19/22 00:20 amoxicillin [From Augmentin] AdvReac Severe Diarrhea Verified 05/19/22 00:20 clavulanic acid AdvReac Severe Diarrhea Verified 05/19/22 00:20 [From Augmentin] codeine AdvReac Intermediate "I GOT Verified 05/19/22 00:20 REALLY SICK" metformin AdvReac Intermediate GI SYMPTOMS Verified 05/19/22 00:22 Home Meds Home Medications Medication Instructions Recorded Confirmed atorvastatin 20 mg tablet 20 mg PO QAM 08/08/18 02/20/24 calcium 600 mg (as 1 cap PO 3XWK 05/03/19 02/20/24 carbonate)-vitamin D3 5 mcg (200 unit) capsule (Calcium 600 + D(3)) azelastine 205.5 mcg (0.15 %) 1 spray intranasal HS PRN Other 05/26/21 02/20/24 nasal spray ferrous sulfate 325 mg (65 mg 325 mg PO UD 05/26/21 02/20/24 iron) tablet (iron) prednisone 10 mg tablet 5 mg PO DAILY 05/26/21 02/20/24 apixaban 5 mg tablet (Eliquis) 5 mg PO AMHS 07/31/21 02/20/24 metformin 500 mg tablet,extended 500 mg PO DAILYBB 07/31/21 02/20/24 release 24 hr cholecalciferol (vitamin D3) 125 125 mcg PO DAILY 05/16/22 02/20/24 mcg (5,000 unit) tablet (Vitamin D3) diltiazem HCl 300 mg 300 mg PO DAILY 05/16/22 02/20/24 capsule,extended release 24 hr (Cardizem CD) irbesartan 150 mg tablet 150 mg PO HS 05/16/22 02/20/24 potassium chloride 10 mEq 10 meq PO TID 05/16/22 02/20/24 tablet,extended release(part/cryst) vitamin K2 100 mcg capsule 100 mcg PO DAILY 05/19/22 02/20/24 furosemide 20 mg tablet 20 mg PO DAILY 02/20/24 02/20/24 metoclopramide HCl 10 mg tablet 10 mg PO TID 02/20/24 02/20/24 metoprolol succinate 100 mg 50 mg PO BID 02/20/24 02/20/24 tablet,extended release 24 hr Results & Data (ED) Vital Signs Vital Signs - 24 hr 02/20/24 08:20 02/20/24 08:29 02/20/24 09:00 Temperature 37.3 C Temperature Source Oral Pulse Rate 78 75 75 Pulse Rate from SpO2 Sensor Pulse Rhythm Regular Respiratory Rate 12 12 Respiratory Effort / Characteristics Non-Labored Respiratory Depth Normal Respiratory Pattern Regular Blood Pressure 171/103 H Blood Pressure Mean 125 Pulse Oximetry 96 96 Oxygen Delivery Method Room Air Room Air Sepsis Recent Fever Within 48 Hours No Sepsis New/Unexplained Change in Mental Status N/A Sepsis Action Taken by Nursing No Action Required 02/20/24 10:00 02/20/24 10:33 02/20/24 11:24 Temperature Temperature Source Pulse Rate 80 75 84 Pulse Rate from SpO2 Sensor 71 81 Pulse Rhythm Respiratory Rate 20 21 23 Respiratory Effort / Characteristics Respiratory Depth Respiratory Pattern Blood Pressure 157/99 H 176/83 H 186/86 H Blood Pressure Mean 118 114 119 Pulse Oximetry 96 96 97 Oxygen Delivery Method Room Air Sepsis Recent Fever Within 48 Hours Sepsis New/Unexplained Change in Mental Status Sepsis Action Taken by Snf Medications Current Medication List: was personally reviewed by me Laboratory Data Attestation: I reviewed the patient's lab results. 02/20/24 09:10 02/20/24 09:10 Lab Results 02/20/24 02/20/24 02/20/24 Range/Units 09:10 09:45 10:08 WBC 12.85 H (4.8-10.8) K/ul RBC 5.02 (4.70-6.10) M/uL Hgb 14.6 (14.0-18.0) g/dl Hct 43.1 (42.0-52.0) % MCV 85.9 (80.0-100.0) fL MCH 29.1 (25.0-34.0) pg MCHC 33.9 (32.0-36.0) g/dL RDW Std Deviation 43.3 (36.4-46.3) fL RDW Coeff of [place] 13.9 (11.5-14.5) % Plt Count 251 (130-400) K/uL MPV 11.4 (9.4-12.4) fL Immature Gran % (Auto) 0.3 % Neut % (Auto) 82.9 % Lymph % (Auto) 7.9 % [place] % (Auto) 7.3 % Eos % (Auto) 1.3 % Baso % (Auto) 0.3 % Neut # (Auto) 10.64 H (1.40-6.50) K/uL Lymph # (Auto) 1.02 L (1.20-3.40) K/uL [place] # (Auto) 0.94 H (0.11-0.59) K/uL Eos # (Auto) 0.17 (0.00-0.50) K/uL Baso # (Auto) 0.04 (0.00-0.20) K/uL Immature Gran # (Auto) 0.04 (0.01-0.20) K/uL ESR 31 H (0-20) mm/hr PT Cancelled 10.9 INR Cancelled 1.0 APTT Cancelled 24 PTT Ratio Cancelled 0.9 Sodium 144 (136-145) mmol/L Potassium 4.0 (3.5-5.1) mmol/L Chloride 105 (98-107) mmol/L Carbon Dioxide 32 (21-32) mmol/L Anion Gap 7 (3-11) BUN 18 (6-23) mg/dl Creatinine 0.81 (0.6-1.4) mg/dl Est Cr Clr Drug Dosing 72.6 ml/min eGFR 88.03 BUN/Creatinine Ratio 22.2 H (10-20) Glucose 111 H (70-99(Fasting)) mg/dl Calcium 9.6 (8.6-10.3) mg/dl Phosphorus 2.5 (2.5-4.9) mg/dl Magnesium 2.1 (1.7-2.4) mg/dl Iron 83 (35-175) mcg/dl TIBC 297 (250-450) mcg/dl Unsaturated IBC 214 (155-355) mcg/dl Transferrin % Sat 28 (20-50) % Total Bilirubin 0.6 (0.2-1.0) mg/dl AST 15 (13-39) U/L ALT 15 (7-52) U/L Alkaline Phosphatase 70 (34-104) U/L Total Creatine Kinase 26 L (30-223) U/L Troponin I High Sens 11.2 (0-20) pg/ml C-Reactive Protein 1.31 H (0-0.5) mg/dl Total Protein 6.9 (6.0-8.3) gm/dl Albumin 3.6 (3.4-5.0) gm/dl Globulin 3.3 (2.5-4.0) gm/dl Albumin/Globulin Ratio 1.1 (0.9-2) Vitamin B12 855 (180-914) pg/ml Folate 11.88 (>5.38) ng/ml TSH 3.456 (0.300-4.500) uIu/ml Random Cortisol 10.29 mcg/dl Urine Color Yellow Urine Appearance Clear (Clear) Urine pH 8.5 H (4.5-7.5) Ur Specific [place] 1.009 (1.000-1.030) Urine Protein Negative (Negative) Urine Glucose (UA) Negative (Negative) Urine Ketones Negative (Negative) Urine Blood Negative (Negative) Urine Nitrite Negative (Negative) Urine Bilirubin Negative (Negative) Urine Urobilinogen Negative (Negative) Ur Leukocyte Esterase Negative (Negative) Administered Medications Apixaban (Apixaban 5 Mg Tablet) 5 mg PO AMHS LAWANDA Stop: 03/21/24 12:44 Last Admin: 02/20/24 14:06 Dose: 5 mg Documented By: Diltiazem HCl (Diltiazem Hcl 300 Mg Capcr) 300 mg PO DAILY LAWANDA Stop: 03/21/24 12:44 Last Admin: 02/20/24 14:06 Dose: 300 mg Documented By: Metoclopramide HCl (Metoclopramide Hcl 10 Mg Tablet) 10 mg PO TID LAWANDA Stop: 03/21/24 14:44 Last Admin: 02/20/24 16:17 Dose: 10 mg Documented By: GADIEL Potassium Chloride (Potassium Chloride 10 Meq Tabcr) 10 meq PO TID LAWANDA Stop: 03/21/24 14:44 Last Admin: 02/20/24 16:17 Dose: 10 meq Documented By: GADIEL Prednisone (Prednisone 5 Mg Tab) 5 mg PO DAILY LAWANDA Stop: 03/21/24 12:44 Last Admin: 02/20/24 14:06 Dose: 5 mg Documented By: MR Imaging Data Radiologist's Impression: Chest X-Ray 02/20/24 08:31 XR chest 1V portable HISTORY: 83 years-old Male weakness acute weakness COMPARISON: 05/19/2022 TECHNIQUE: AP view the chest FINDINGS: Cardiomediastinal and hilar silhouettes are unchanged. Battery pack projects over the left chest. No pneumothorax, pleural effusion or airspace consolidation. Bones appear grossly intact. IMPRESSION: No acute process. ACT 112: Negative or not required by law. The above report was generated using voice recognition software. It may contain grammatical, syntax or spelling errors. Electronically signed by: Jacob Del Angel M.D. 02/20/2024 9:[address] 02/20/24 08:44 CT OF THE HEAD WITHOUT CONTRAST CLINICAL HISTORY: weakness COMPARISON STUDY: Head CT, CTA of the head and MRI of brain July 31, 2021. CT DOSE: 625.8 mGy.cm TECHNIQUE: Helical axial images of the head were obtained without IV contrast. Automated exposure control was utilized for the study. A dose lowering technique was utilized adhering to the principles of ALARA. FINDINGS: No acute intracranial hemorrhage, midline shift or mass effect is present. White matter hypodensity suggests small vessel disease. The ventricular system is unremarkable. The basal cisterns are patent. No extra-axial collections are present. There are no findings to suggest acute dural sinus thrombosis or acute territorial infarct. No significant calvarial abnormalities are present. Visualized portions of the sinuses and mastoid air cells are clear. IMPRESSION: No acute intracranial findings. ACT 112: Negative or not required by law. Electronically signed by: Doyle Sevilla M.D. 02/20/2024 9:39 AM Discharge Plan Visit Data Chief Complaint: Weakness Stated Complaint: WEAKNESS ED Provider: Joon Carrillo Discharge Problem: Weakness, Leukocytosis Patient Disposition: Admitted As Inpatient Condition: Fair Discharge Instructions Interventions: ED Discharge Assessment Last Done: 02/20/24 14:19 Discharge Problem: Leukocytosis Qualifiers: Leukocytosis type: unspecified Qualified Code(s): D72.829 - Elevated white blood cell count, unspecified
--- NOTE | 2024-02-20 09:08 | XRay Report ---
XR chest 1V portable HISTORY: 83 years-old Male weakness acute weakness COMPARISON: 05/19/2022 TECHNIQUE: AP view the chest FINDINGS: Cardiomediastinal and hilar silhouettes are unchanged. Battery pack projects over the left chest. No pneumothorax, pleural effusion or airspace consolidation. Bones appear grossly intact. IMPRESSION: No acute process. ACT 112: Negative or not required by law. The above report was generated using voice recognition software. It may contain grammatical, syntax o r spelling errors. Electronically signed by: Jacob Del Angel M.D. 02/20/2024 9:07 AM
[2024-02-20 09:29] LABS: Basophils # (auto) 0.04 K/uL (0.00-0.20); Basophils % (auto) 0.3 %; Eosinophils # (auto) 0.17 K/uL (0.00-0.50); Eosinophils % (auto) 1.3 %; Hematocrit (blood only) 43.1 % (42.0-52.0); Hemoglobin 14.6 g/dl (14.0-18.0); Immature Granulocytes # (auto) 0.04 K/uL (0.01-0.20); Immature Granulocytes % (auto) 0.3 %; Lymphocytes # (auto) 1.02 K/uL (1.20-3.40); Lymphocytes % (auto) 7.9 %; Mean Corpuscular Hemoglobin 29.1 pg (25.0-34.0); Mean Corpuscular Hgb Conc 33.9 g/dL (32.0-36.0); Mean Corpuscular Volume 85.9 fL (80.0-100.0); Mean Platelet Volume 11.4 fL (9.4-12.4); Monocytes # (auto) 0.94 K/uL (0.11-0.59); Monocytes % (auto) 7.3 %; Neutrophils # (auto) 10.64 K/uL (1.40-6.50); Neutrophils % (auto) 82.9 %; Platelet Count 251 K/uL (130-400); RDW Coefficient of Variation 13.9 % (11.5-14.5); RDW Standard Deviation 43.3 fL (36.4-46.3); Red Blood Count 5.02 M/uL (4.70-6.10); White Blood Count 12.85 K/ul (4.8-10.8)
[2024-02-20 09:42] LABS: Albumin Globulin Ratio 1.1 (0.9-2); Albumin Level 3.6 gm/dl (3.4-5.0); BUN Creatinine Ratio 22.2 (10-20); Bilirubin,Total 0.6 mg/dl (0.2-1.0); Calcium 9.6 mg/dl (8.6-10.3); Creatinine Clr Calc Pharmacy 72.6 ml/min; Globulin 3.3 gm/dl (2.5-4.0); Magnesium 2.1 mg/dl (1.7-2.4); Phosphorus 2.5 mg/dl (2.5-4.9); Total Protein 6.9 gm/dl (6.0-8.3)
--- NOTE | 2024-02-20 09:42 | CT Scan Report ---
CT OF THE HEAD WITHOUT CONTRAST CLINICAL HISTORY: weakness COMPARISON STUDY: Head CT, CTA of the head and MRI of brain July 31, 2021. CT DOSE: 625.8 mGy.cm TECHNIQUE: Helical axial images of the head were obtained without IV contrast. Automated exposure con trol was utilized for the study. A dose lowering technique was utilized adhering to the principles o f ALARA. FINDINGS: No acute intracranial hemorrhage, midline shift or mass effect is present. White matter hyp odensity suggests small vessel disease. The ventricular system is unremarkable. The basal cisterns ar e patent. No extra-axial collections are present. There are no findings to suggest acute dural sinus thrombosis or acute territorial infarct. No significant calvarial abnormalities are present. Visualiz ed portions of the sinuses and mastoid air cells are clear. IMPRESSION: No acute intracranial findings. ACT 112: Negative or not required by law. Electronically signed by: Doyle Sevilla M.D. 02/20/2024 9:39 AM
[2024-02-20 09:48] LABS: Troponin I High Sensitivity 11.2 pg/ml (0-20)
[2024-02-20 09:53] LABS: Appearance Urine Clear (Clear); Bilirubin Urine Negative (Negative); Blood Urine Negative (Negative); Color Urine Yellow; Glucose Urine UA Negative (Negative); Ketones Urine Negative (Negative); Leukocyte Esterase Urine Negative (Negative); Nitrite Urine Negative (Negative); Protein Urine Negative (Negative); Specific Gravity Urine 1.009 (1.000-1.030); Urobilinogen Urine Negative (Negative); pH Urine 8.5 (4.5-7.5)
[2024-02-20 09:58] LABS: Thyroid Stimulating Hormone 3.456 uIu/ml (0.300-4.500)
[2024-02-20 10:48] LABS: Partial Thromboplastin Ratio 0.9; Partial Thromboplastin Time 24 Seconds (21-31); Prothrombin Time 10.9 Seconds (9.0-12.0)
--- OUTSIDE RECORDS SUMMARY | 2024-02-20 11:43 | External Medical Summary | Summary of Care ---
Author Name Unknown Organization [facility] Address [address] [place] [address] Phone [phone] Care Team Providers Care Multimedia Journalist Name Role Phone Lana Eden MD Primary Care Provider [phone] Reason for Visit * Reason Onset Date Comments Medication Refill 02/04/2024 Encounter Details Date Type Department Care Team (Late st Contact Info) Description 02/04/2024 Refill General Surgery, [facility] [address] [place] [address] Edson Peralta PA-C [address] [place] [address] Allergies Active Allergy Reactions Criticality Noted Date Comments Amoxicillin-Pot Clavulanate Unknown 02/24/20 19 Pt states it was so long ago he does not remember reaction/severity. Codeine Diarrhea High 01/05/2020 Other reaction(s): "I GOT REALLY SICK" Hydrocodone Bit-Homatrop Mbr Unknown 017 Pt states it was so long ago he does not remember reaction/severity Levothyroxine Sodium Hives,Rash High 10/01/2010 documented as of this encounter (statuses as of 02/04/2024) Medications Medication Sig Dispensed Refills Start Date End Date Status Iron 325 (65 Fe) MG Oral Tablet Take 1 Tablet by mouth once. Active Calcium Carbonate-Vitamin D 600-200 MG-UNIT Oral Tablet daily. 07/19/2021 Active Vitamin D3 125 MCG (5000 UT) Oral Capsule Take 1 Capsule by mouth in the morning. Active Vitamin K2 100 MCG Oral Capsule Take by mouth 1 Capsule daily . Active Magnesium 100 MG Oral Capsule Take by mouth every evening. Active Zinc 22.5 MG Oral Tablet Take by mouth. Active Azelastine HCl 0.1 % Nasal Solution (Astelin)Indicati ons:Allergic rhinitis, unspecified seasonality, unspecified trigger Administer 1 [place] into nostril in the morning and 1 [place] before bedtime. 90 mL 3 04/03/2023 Active Furosemide 20 MG Oral Tablet (Lasix)Indication s:HTN, goal below 140/90,Edema, unspecified type Take 1 Tablet by mouth in the morning. 90 Tablet 3 04/24/2023 Active Vitamin B-12 1000 MCG Oral Tablet (Cyanocobalamin) Take 1 Tablet by mouth in the morning. Active Atorvastatin Calcium 20 MG Oral Tablet (Lipitor)Indicati ons:Dyslipidemia, goal LDL below 160 TAKE 1 TABLET IN THE MORNING 90 Tablet 3 05/16/2023 Active Eliquis 5 MG Oral Tablet (Apixaban) TAKE 1 TABLET IN THE MORNING AND 1 TABLET BEFORE BEDTIME 180 Tablet 3 05/23/2023 Active CoQ-10 30 MG Oral Capsule Take by mouth. Active NAC 500 MG Oral Capsule (Acetylcysteine) Take by mouth. Acti ve Potassium Chloride ER 10 MEQ Oral Tablet Extended ReleaseIndication s:Hypokalemia Take 2 Tablets by mouth daily. 180 Tablet 1 11/17/2023 Active predniSONE 5 MG Oral Tablet (Deltasone)Indica tions:Polymyalgia rheumatica (HCC) Take 1 Tablet by mouth in the morning. 5mg alternating with 2.5mg every other day. 11/27/2023 Active metFORMIN HCl ER 500 MG Oral Tablet Extended Release 24 Hour (Glucophage XR)Indications:Ty pe 2 diabetes mellitus with hemoglobin A1c goal of less than 7.0% (HCC) TAKE 1 TABLET IN THE MORNING 90 Tablet 3 12/17/2023 Active Azithromycin 250 MG Oral Tablet (Zithromax)Indica tions:Bronchiolit is Take 1 Tablet by mouth in the morning. 01/14/2024 Active dilTIAZem HCl ER Coated Beads 300 MG Oral Capsule Extended Release 24 Hour (Cardizem CD)Indications:At rial fibrillation, unspecified type (HCC) Take 1 Capsule by mouth in the morning. 01/14/2024 Active Metoprolol Succinate ER 100 MG Oral Tablet Extended Release 24 Hour (toPROL XL)Indications:At rial fibrillation, unspecified type (HCC) Take 1 Tablet by mouth in the morning and 1 Tablet before bedtime. 180 Tablet 1 01/15/2024 Active Irbesartan 150 MG Oral Tablet (Avapro)Indicatio ns:HTN, goal below 140/90 Take 1 Tablet by mouth in the morning. 90 Tablet 3 01/15/2024 Active Metoclopramide HCl 10 MG Oral Tablet (Reglan) Take 1 Tablet by mouth every 8 hours as needed (trouble swallowing). 120 Tablet 02/04/2024 Active Metoclopramide HCl 10 MG Oral Tablet (Reglan) Take 1 Tablet by mouth every 8 hours as needed (trouble swallowing). 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 ADVANCE DIRECTIVE INFORMATION 07/09/2006 Sensorineural hearing loss, bilateral documented as of this encounter (statuses as of 02/04/2024) Resolved Problems Problem Noted Date Diagnosed Date Resolved Date Paraesophageal hiatal hernia 10/09/2023 12/21/2023 Hypogonadism in male 10/30/2020 021 Gastroesophageal reflux dise ase without esophagitis 05/10/2015 12/21/2023 Kidney disease, chronic, sta ge III (GFR 30-59 ml/min) 01/23/2015 11/11/2016 Overview: Per CKD protocol #1 Colon polyps 12/11/2011 03/12/2019 HTN, goal to be determined 07/09/2006 1 05/02/2008 Overview: Modified per HTN protocol #16. Dyslipidemia, goal to be determined 07/09/2006 09/16/2009 Vertigo 11/25/2017 Impacted cerumen 06/22/2008 documented as of this encounter (statuses as of 02/04/2024) Immunizations Name Administration Dates Next Due COVID-19 mRNA, LNP-s, No Pre serve, 2-Dose Series (Moderna) 02/12/2021,06/14/2020,05/17/2020 COVID-19, MRNA-LNP, 23-24, P F, 50 MCG/0.5 mL, 12 YRS AND ABOVE, IM (MODERNA-Spikevax) 02/25/2023 COVID-19, mRNA, LNP-s, PF, B ooster, 100mcg/0.5mg (Moderna) 08/25/2021,02/12/2021 Covid-19, Mrna, Lnp-s, Pf, B ivalent, 30 Mcg, IM, 12 yrs and above (Pfizer) 01/11/2022 DT - Diptheria/Tetanus (PEDS) 06/12/2005 Hepatitis B, 20+ yrs 10/20/2023,07/18/2023,04/24 Pneumococcal Conjugate Vacc, 13 Valent (Prevnar) 11/08/2015 Pneumococcal Conjugate Vacci ne, 7 Valent 07/13/2007,08/12/2001 Pneumococcal Polysaccharide PPV23 (Pneumovax) 05/20/2017 RSV Vac., Recomb, Adjuvant, PF,0.5 Ml (Arexvy) 02/25/2023 Season Influenza, Quad, PF, Adjuvanted, 65+ Yrs, IM (FLUAD) 01/10/2021,12/14/2019 Seasonal Influenza Vac., MDV , IM, 0.5 mL (Fluzone) 12/28/2015,12/28/2014,12/15/2013,12/28,12/31/2011,02/07/2011,01/14/2010 ,12/22/2008,01/19/2008,02/02/2007 Seasonal Influenza Virus Vac cine, Unspecified Formulation 12/19/2021,01/10/2021,12/14/2019,01/10,12/21/2016,01/15/2016,12/28/2015 ,12/28/2014,12/15/2013,12/28/2012,12/13,02/07/2011,01/14/2010, 9,01/19/2008,02/02/2007 Seasonal Influenza, High Dos e, Trivalent, PF, IM (Fluzone HD) 12/12/2023,12/21/2016 Seasonal Influenza, PF, 6 M & above, IM , (FluLaval or Fluzone) 01/07/2018 Seasonal Influenza, Quadriva lent Hd (Fluzone Hd) 12/27/2022 Seasonal Influenza, Trivalen t, Adjuvanted, 65+ YRS, PF, (Fluad) 12/01/2018 TDAP, Age 7 and older, IM (Adacel) 12/29/2013 Varicella Zoster Vaccine (Adult) 06/12/2011 Zoster Vaccine Recombinant (Shingrix) 08/18/2019 ,05/13/2019 documented as of this encounter Social History Tobacco Use Types Packs/Day Years Used Date Smoking Tobacco: Former Cigarettes 1 20 0 09/12/1962 - 09/12/1982 Passive Smoke Exposure: Past Smokeless Tobacco: Never Comments:quit summer Alcohol Use Standard Drinks/Week Comments Yes 0 (1 standard drink = 0.6 oz pur e alcohol) one drink several days a week AUDIT-C Answer Date Recorded Q1: How often do you have a drink containing alcohol? 4 or more times a week 10/11/2020 Average Number of Drinks Not on file 021 Q3: How often do you have si x or more drinks on one occasion? Not asked 10/11/2020 PHQ-2 Answer Date Recorded PHQ Adult Total Score 2 12/27/2022 Hunger Vital Sign Answer Date Recorded Within the past 12 months, y ou worried that your food would run out before you got the money to buy more. Never true 12/28/19 23 Within the past 12 months, t he food you bought just didn't last and you didn't have money to get more. Never true 12/27/2022 Childcare Answer Date Recorded Do you feel overwhelmed with taking care of a child, family member or friend? No 12/27/2022 Does your family need help f inding childcare? (Household - for ages 0-17 years) Not on file 12/27/2022 Clothing Answer Date Recorded Have you been unable to get clothing when it was really needed? No 12/27/2022 Is your family able to get c lothes or diapers when needed? (Household - for ages 0-17 years) Not on file 12/27/2022 Personal Safety Answer Date Recorded Do you feel unsafe or have concerns for your saf ety? No 11/28/2023 Do you have concerns for you r family's safety? (Household - for ages 0-17 years) Not on file 11/28/2023 Utilities Answer Date Recorded Do you have trouble paying y our heating, water, or electric bill? No 11/28/2023 Is your family able to pay t he heat, water, or electric bill? (Household - for ages 0-17 years) Not on file 11/28/2023 Does your family have access to good internet? (Household - for ages 0-17 years) Not on file 11/28/2023 Employment Status Answer Date Recorded Are you unemployed or without regular income? No 12/27/2022 Does the household have a re gular source of income? (Household - for ages 0-17 years) Not on file 12/27/2022 Social Connections Answer Date Recorded How often do you feel lonely or isolated from th ose around you? Never 12/27/2022 Financial Resource Strain Answer Date R ecorded Do you have any trouble payi ng for your medications, or do you think you might in the future? No 12/27/2022 Does your family have troubl e paying for medicine? (Household - for ages 0-17 years) Not on file 12/27/2022 Transportation Needs Answer Date Record ed READ ONLY Do you have troubl e getting a ride to medical visits or work? Never True 11/28/2023 Does your family have a hard time getting a ride to doctors visits? (Household - for ages 0-17 years) Not on file 11/28/2023 Has lack of transportation k ept you from medical appointments, meetings, work, or from getting things needed for daily living? Check all that apply. No 11/28/2023 Do you (or your family) have trouble finding or paying for a ride (transportation)? (Household - for ages 0-17 years) Not on file 11/28/2023 Housing Stability Answer Date Recorded Do you currently live in a s helter or have no steady place to sleep at night? No 11/28/2023 READ ONLY Do you think you a re at risk of becoming homeless? No 11/28/2023 Does your family worry about paying for your home or becoming homeless? (Household - for ages 0-17 years) Not on file 0 11/28/2023 Are you homeless or worried that you might be in the future? No 11/28/2023 Are you (or your family) wily eless or worried that you might be in the future? (Household - for ages 0-17 years) Not on file Food Insecurity Answer Date Recorded Do you need food for this week? No 11/28/2023 Are you able to get enough f ood for your family? (Household - for ages 0-17 years) Not on file 11/28/2023 Does your family need food t his week? (Household - for ages 0-17 years) Not on file 11/28/2023 Do you always have enough fo od for your family? (Household - for ages 0-17 years) Not on file 11/28/2023 Sex and Gender Information Value Date Recorded Sex Assigned at Male 07/30/2018 2:16 PM EDT Gender Identity Male 07/30/2018 2:16 PM EDT Sexual Orientation Straight 07/30/2018 2: 16 PM EDT Job Start Date Occupation Industry Not on file Not on file Not on file documented as of this encounter Functional Status Functional Status Response Date of Assess ment Are you deaf or do you have serious difficulty hearing? Yes-wears hearing aides 11/28/2023 Are you blind or do you have serious difficulty seeing, even when wearing glasses? No-wears glasses 11/28/2023 Do you have serious difficul ty walking or climbing stairs? (5 years old or older) Yes-uses walker for longer distances 11/28/2023 Do you have difficulty dress ing or bathing? (5 years old or older) No 11/28/2023 Because of a physical, menta l, or emotional condition, do you have difficulty doing errands alone such as visiting a doctor s office or shopping? (15 years old or older) No 11/28/2023 Cognitive Status Response Date of Assessm ent Because of a physical, menta l, or emotional condition, do you have serious difficulty concentrating, remembering, or making decisions? (5 years old or older) No 11/28/2023 documented as of this encounter Miscellaneous Notes * Telephone Encounter - Cristiane Enriquez PA-C - 02/04/2024 1:18 PM EDTSigned Prescriptions: Disp Refills Metoclopramide HCl 10 MG Oral Tablet (Regl*120 Ta*0 Sig: Take 1Tablet by mouth every 8 hours as needed (trouble swallowing).Authorizing Provider: CRISTIANE ENRIQUEZ * Telephone Encounter - Argenis Cifuentes RN - 02/04/2024 10:24 AM EDTPending Prescriptions: Disp Refills Metoclopramide HCl 10 MG Oral Tablet (Regl*120 Ta*0 Sig: Take 1Tablet by mouth every 8 hours as needed (trouble swallowing). documented in this encounter Plan of Treatment Upcoming Encounters Date Type Department Care Team (Late st Contact Info) Description 02/04/2024 2:00 PM EDT Laboratory Laboratory [facility] [place] [address] [place] [phone] [place], Lab [facility] [address] [place] [address] 02/04/2024 3:00 PM EDT Nurse Only Ancillary [facility] [place] [address] [place] [id number] Nurse, Int Med [address] [facility] [place] [address] 02/06/2024 4:00 PM EDT Office Visit General Internal Medicine [facility] [place] [address] [facility] [place] [address] Teo Aj, DO [address] [facility] [place] [address] 02/09/2024 1:30 PM EDT Office Visit Cardiology, [facility] [address] [facility] [place] [address] Karina Campuzano, DO [address] [facility] [place] [address] 02/24/2024 11:40 AM EST Office Visit Rheumatology [place] [address] [facility] [place] [address] Niraj Shukla MD [address] [facility] [place], [place] [address] 02/24/2024 2:30 PM EST Office Visit Cardiology, [facility] [address] [facility] [place] [address] Billy Anthony PA-C [address] [facility] [place] [address] 04/22/2024 1:40 PM EST Office Visit General Internal Medicine [facility] [address] [facility] [place], [place] [address] Lana Eden MD [address] [facility] [place], [place] [address] 05/10/2024 2:15 PM EST Office Visit Hematology/Oncology [facility] [address] [facility] [place] [phone] Pepito Chiang MD [address] [facility] [place], [place] [address] 05/19/2024 3:00 PM EST Telemedicine General Surgery, [place] [address], [place] [id number] Best Shelley MD [address] [place] [address] 06/03/2024 2:00 PM EST Office Visit General Surgery, [facility] [address] [place] [address] Christophe Henriquez MD [address], [place] [id number] 09/02/2024 2:00 PM EDT Office Visit Cardiology, [facility] [address] [facility] [place] [phone] Billy Anthony PA-C [address] [place] [address] Scheduled Procedures Name Priority Associated Diagnoses Date/Ti me COLONOSCOPY FLEXIBLE PROXIMA L DIAGNOSTIC Recall History of colonic polyps Health Maintenance Due Date Last Done Comments COVID-19 Vaccine ( season) 2023 02/25/2023, 01/11/2022, 08/25/2021, Additional history exists Adult Wellness Visit 12/28/2023 12/27/2022, 10/12/19 21 Depression Screening 12/28/2023 12/27/2022 DTap/Tdap Vaccines (3 - Td or Tdap) 12/30/2023 12/29/2013, 06/12/2005 HbA1c 05/09/2024 11/07/2023, 09/13, 07/28/2023, Additional history exists DXA Scan 05/29/2024 05/29/2022 Diabetic Eye Exam 07/14/2024 07/15/2023, , 07/15/2022, Additional history exists Albumin/Creatinine Ratio 10/09/2024 024, 12/13/2022, 11/13/2022, Additional history exists Diabetic Foot Exam 10/21/2024 10/22/2023 (D one elsewhere), 11/05/2022 (Course Completed), 08/09/2021 GFR 11/28/2024 11/29/2023, 10/13, 10/14/2023, Additional history exists Pneumococcal Vaccine: 65+ Years Completed 05/20/2017, 11/08/2015 Zoster Vaccines Completed 08/18/2019, 04/16, 06/12/2011 VITAMIN D LEVEL ONCE IN A LIFETIME-USE SMARTSET# [id number] Completed 02/10/2023, 11/20/2021, 05/08/2021 Hepatitis B Vaccine Completed 10/20/2023, 07/18/2023, 04/24/2023 Influenza Vaccine (FLU shot) Completed , 12/27/2022, 12/19/2021, Additional history exists HPV (Gardasil) Vaccine Aged Out No lo nger eligible based on patient's age to complete this topic MENINGOCOCCAL (MENACTRA/MENVEO) Aged Out No longer eligible based on patient's age to complete this topic documented as of this encounter Medical Devices Not on filedocumented as of this encounter Advance Directives Documents on File Type Date Recorded 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 Question Answer Comments Discussion of Advance Directives occurred with: Patient Does the patient have a Living Will? Yes, not cu rrently available Does the patient have Health Care Power of Signalling And Communications Engineer? Yes, not currently available * Full Code Date Activated Date Inactivated Comments 11/28/2023 10:12 AM 11/28/2023 2:28 PM Question Answer Comments Discussion of Advance Direct elma occurred with: Not Discussed due to patient's condition * Full Code Date Activated Date Inactivated Comments 08/05/2023 3:35 PM 08/10/2023 5:59 PM This order r eflects the patients wishes and were consensually agreed upon. Question Answer Comments Discussion of Advance Directives occurred with: Patient Care Teams Multimedia Journalist Relationship Specialty Start Date End Date Lana Eden MD [address] [place] [address] PCP - General Internal Medicine 12/04/20 documented as of this encounter
--- OUTSIDE RECORDS SUMMARY | 2024-02-20 11:43 | External Medical Summary | Summary of Care ---
Author Name Unknown Organization [facility] Address [address] [place] [address] Phone [phone] Care Team Providers Care Cancer Registry Manager Name Role Phone Lana Eden MD Primary Care Provider [phone] Reason for Visit * Reason Comments Outpatient Testing Encounter Details Date Type Department Care Team (Late st Contact Info) Description 02/04/2024 2:00 PM EDT Laboratory Laboratory Scenery [facility] [address] [place] [id number] [place], Lab Scenery [address] [place] [address] Iron deficiency anemia, unspecified iron deficiency anemia type; HTN, GOAL BELOW 140/90; Type 2 diabetes mellitus with hemoglobin A1c goal of less than 7.0% ([facility]) Allergies Active Allergy Reactions Criticality Noted Date [...] Active Azelastine HCl 0.1 % Nasal Solution (Astelin)Indication s:Allergic rhinitis, unspecified seasonality, unspecified trigger Administer 1 Marshall into nostril in the morning and 1 Marshall before bedtime. 90 mL 3 04/03/2023 Active Furosemide 20 MG Oral Tablet (Lasix)Indications: HTN, goal below 140/90,Edema, unspecified type Take 1 Tablet by mouth in the morning. 90 Tablet 3 04/24/2023 Active Vitamin B-12 1000 MCG Oral Tablet (Cyanocobalamin) Take 1 Tablet by mouth in the morning. Active Atorvastatin Calcium 20 MG Oral Tablet (Lipitor)Indication s:Dyslipidemia, goal LDL below 160 TAKE 1 TABLET [...] Chloride ER 10 MEQ Oral Tablet Extended ReleaseIndications: Hypokalemia Take 2 Tablets by mouth daily. 180 Tablet 1 11/17/2023 Active predniSONE 5 MG Oral Tablet (Deltasone)Indicati ons:Polymyalgia rheumatica (HCC) Take 1 Tablet by mouth in the morning. 11/27/2023 Active metFORMIN HCl ER 500 MG Oral Tablet Extended Release 24 Hour (Glucophage XR)Indications:Type 2 diabetes mellitus with hemoglobin A1c goal of less than 7.0% (HCC) TAKE 1 TABLET IN THE MORNING 90 Tablet 3 12/17/2023 Active Azithromycin 250 MG Oral Tablet (Zithromax)Indicati ons:Bronchiolitis Take 1 Tablet by mouth in the morning. 01/14/2024 Active dilTIAZem HCl ER Coated Beads 300 MG Oral Capsule Extended Release 24 Hour (Cardizem CD)Indications:Atri al fibrillation, unspecified type (HCC) Take 1 Capsule by mouth in the morning. 01/14/2024 Active Metoprolol Succinate ER 100 MG Oral Tablet Extended Release 24 Hour (toPROL XL)Indications:Atri al fibrillation, unspecified type (HCC) Take 1 Tablet by mouth in the morning and 1 Tablet before bedtime. 180 Tablet 1 01/15/2024 Active Irbesartan 150 MG Oral Tablet (Avapro)Indications :HTN, goal below 140/90 Take 1 Tablet by mouth in the morning. 90 Tablet 3 01/15/2024 Active Metoclopramide HCl 10 MG Oral Tablet (Reglan) Take 1 Tablet by mouth every 8 hours as needed (trouble swallowing). 120 Tablet 02/04/2024 Active documented as of this encounter (statuses as of 02/04/2024) Active Problems Problem Noted Date Diagnosed Date S/P repair of paraesophageal hernia 12/21/2023 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 group home current use of systemic steroids 07/30 Steroid-induced [...] 12/27/2022 Does the household have a re lar source of income? (Household - for ages [...] No 11/28/2023 documented as of this encounter Plan of Treatment Upcoming Encounters Date Type Department Care Team (Late st Contact Info) Description 02/04/2024 3:00 PM EDT Nurse Only Ancillary [facility] 200 [facility] [place] [address] Nurse, Int Med [address] [place] [address] Blood Pressure Check 02/06/2024 4:00 PM EDT Office Visit General Internal Medicine [facility] 200 [facility] [place] [place] [address] Teo Aj, DO 200 [facility] [place] [address] 02/09/2024 1:30 PM EDT Office Visit Cardiology, [facility] [place] [address] Karina Campuzano, DO [address] [place] [phone] 02/24/2024 11:40 AM EST Office Visit Rheumatology [place] [phone] [facility] [place] [address] Niraj Shukla MD [address] [facility] [place] [address] 02/24/2024 2:30 PM EST Office Visit Cardiology, [facility] [address] [place] [address] Billy Anthony, PA-C [address] [place] [address] 04/22/2024 1:40 PM EST Office Visit General Internal Medicine [facility] [address] [place] [address] Lana Eden MD 200 [facility] [place] [address] 05/10/2024 2:15 PM EST Office Visit Hematology/Oncology [facility] [place] [address] [place] [phone] Pepito Chiang MD 200 [facility] [place] [address] 05/19/2024 3:00 PM EST Telemedicine General Surgery, [place] [address] [place] [address] Best Shelley MD [address] [place] [address] 06/03/2024 2:00 PM EST Office Visit General Surgery, [facility] 132 [facility] [place] [address] Christophe Henriquez MD [address] [place] [address] 09/02/2024 2:00 PM EDT Office Visit Cardiology, [facility] 132 [facility] [place] [address] Billy Anthony PA-C 132 [facility] [place] [address] Pending Results Name Type Priority Associated Diagnoses Date /Time CBC Lab Routine Iron deficiency anemia, unspecified iron deficiency anemia type 02/04/2024 2:10 PM EDT COMPREHENSIVE METABOLIC PANEL Lab Routine HTN, GOAL BELOW 140/90 02/04/2024 2:10 PM EDT HEMOGLOBIN A1C Lab Routine Type 2 diabetes mellitus with hemoglobin A1c goal of less than 7.0% (HCC) 02/04/2024 2:10 PM EDT FERRITIN Lab Routine Iron deficiency anemia, unspecified iron deficiency anemia type 02/04/2024 2:10 PM EDT Scheduled Procedures Name Priority Associated Diagnoses Date/Ti [...] D LEVEL ONCE IN A LIFETIME-USE SMARTSET# [id number] Completed 02/10/2023, 11/20/2021, 05/08/2021 Hepatitis B Vaccine [...] Not on filedocumented as of this encounter Visit Diagnoses Diagnosis Iron deficiency anemia, unspecified iron deficiency anemia type HTN, GOAL BELOW 140/90 Unspecified essential hypertension Type 2 diabetes mellitus with hemoglobin A1c goal of less than 7.0% (HCC) documented in this encounter Advance Directives Documents on File Type Date Recorded 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 Yes, not currently available * Full Code [...] Advance Directives occurred with: Patient Care Teams Cancer Registry Manager Relationship Specialty Start Date End Date Lana Eden MD 200 [facility] [place] [address] PCP - General Internal Medicine 12/04/20 documented as of this encounter
--- OUTSIDE RECORDS SUMMARY | 2024-02-20 11:43 | External Medical Summary | Summary of Care ---
Author Name Unknown Organization [facility] Address [address] [place] [address] Phone [phone] Care Team Providers Care Top Cutter Name Role Phone Lana Eden MD Primary Care Provider Reason for Visit * Evaluate & Treat - Unlimited Visits (Within 3 days (urgent)) - Authorized Specialty Diagnoses / Procedures Referred By Contact Referred To Contact Cardiovascular Medicine / Cardiology Diagnoses Paraesophageal hernia Billy Anthony PA-Precious [address] [place] [address] Referral ID Status Reason Start Date Expiration Date Visits Requested Visits Authorized [id number] Authorized Specialty Services Required 11/13/[phone] Encounter Details Date Type Department Care Team (Latest Contact Info) Description 02/09/2024 3:05 PM EDT - 02/09/2024 11:59 PM EDT Hospital Encounter Cardiac Studies, [facility] [address] [facility] [place] [address] Gl, 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 Active Azelastine HCl 0.1 % Nasal Solution (Astelin)Indication s:Allergic rhinitis, unspecified seasonality, unspecified trigger Administer 1 [place] into nostril in the morning and 1 [place] before bedtime. 90 mL 3 04/03/2023 Active [...] THE MORNING 90 Tablet 3 12/17/2023 Active dilTIAZem HCl ER Coated Beads 300 MG Oral Capsule Extended Release 24 Hour (Cardizem CD)Indications:Atri al fibrillation, unspecified type (HCC) Take 1 Capsule by mouth in the morning. 01/14/2024 Active Irbesartan 150 MG Oral Tablet (Avapro)Indications :HTN, goal below 140/90 Take 1 Tablet by mouth in the morning. 90 Tablet 3 01/15/2024 Active Metoclopramide HCl 10 MG Oral Tablet (Reglan) Take 1 Tablet by mouth every 8 hours as needed (trouble swallowing). 120 Tablet 02/04/2024 Active Metoprolol Succinate ER 50 MG Oral Tablet Extended Release 24 Hour (toPROL XL) Take 1.5 Tablets by mouth in the morning and 1.5 Tablets before bedtime. 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 07/30 Steroid-induced [...] as of this encounter (statuses as of 02/10/2024) Resolved Problems Problem Noted Date Diagnosed Date [...] as of this encounter (statuses as of 02/10/2024) Immunizations Name Administration Dates Next Due COVID-19 [...] Comments:quit summer Alcohol Use Standard Drinks/Week Comments Not Currently 0 (1 standard drink = 0.6 oz pure alcohol) one drink several days a week [...] Care Team (Late st Contact Info) Description 02/24/2024 11:40 AM EST Office Visit Rheumatology [place] [phone] [facility] [place] [address] Niraj Shukla MD [facility] [address] [place] [address] 02/24/2024 2:30 PM EST Office Visit Cardiology, [facility] 132 [facility] [place] [address] Billy Anthony PA-C 132 [facility] [place] [address] 03/16/2024 2:45 PM EST Office Visit Cardiology, [facility] 132 [facility] [place] [address] Karina Campuzano, DO [address] [place] [address] [place] [address] 04/22/2024 1:40 PM EST Office Visit [facility] [address] [place] [address] Lana Eden MD [address] [place] [address] 05/10/2024 2:15 PM EST Office [facility] [address] [place] [address] Pepito Chiang MD [address] [place] [address] 05/19/2024 3:00 PM EST Telemedicine General Surgery, [place] [address] [place] [address] Best Shelley MD [address] [place], [place] [phone] 06/03/2024 2:00 PM EST Office Visit General Surgery, [facility] [address] [place], [place] [phone] Christophe Henriquez MD [address] [place], [place] [phone] 09/02/2024 2:00 PM EDT Office Visit Cardiology, [facility] [address] [place] [address] Billy Anthony PAShiraC [address] [place] [address] Scheduled Procedures Name Priority Associated Diagnoses Date/Ti me COLONOSCOPY FLEXIBLE PROXIMA L DIAGNOSTIC Recall History of colonic polyps Health Maintenance Due Date Last Done Comments COVID-19 Vaccine ( season) 2023 02/25/2023, 01/11/2022, 08/25/2021, Additional history exists Adult Wellness Visit 12/28/2023 12/27/2022, 10/12/19 21 Depression Screening 12/28/2023 12/27/2022 DTap/Tdap Vaccines (3 - Td or Tdap) 12/30/2023 12/29/2013, 06/12/2005 *BISPHONATE OR OTHER ACCEPTABLE MEDICATION NEEDED FOR OSTEOPOROSIS (REFER TO SMARTSET #1146) 02/09/2024 DXA Scan 05/29/2024 05/29/2022 Diabetic Eye Exam 07/14/2024 07/15/2023, , 07/15/2022, Additional history exists HbA1c 08/04/2024 02/04/2024, 10/13, 10/10/2023, Additional history exists Albumin/Creatinine Ratio 10/09/2024 024, 12/13/2022, 11/13/2022, Additional history exists Diabetic Foot Exam 10/21/2024 10/22/2023 (D one elsewhere), 11/05/2022 (Course Completed), 08/09/2021 GFR 02/03/2025 02/04/2024, 11/12, 11/07/2023, Additional history exists Pneumococcal Vaccine: 65+ Years Completed 05/20/2017, 11/08/2015 Zoster Vaccines Completed 08/18/2019, 04/16, 06/12/2011 VITAMIN D LEVEL ONCE IN A LIFETIME-USE SMARTSET# [id number] Completed 02/10/2023, 11/20/2021, 05/08/2021 Hepatitis B Vaccine [...] as of this encounter Visit Diagnoses Diagnosis Atrial fibrillation, unspecified type (HCC) documented in this encounter Advance Directives Documents on File Type Date 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 Yes, not currently available * Full Code [...] Advance Directives occurred with: Patient Care Teams Top Cutter Relationship Specialty Start Date End Date Lana Eden MD 200 [facility] [place] [address] PCP - General Internal Medicine 12/04/20 documented as of this encounter
--- OUTSIDE RECORDS SUMMARY | 2024-02-20 11:43 | External Medical Summary ---
Author Name Unknown Address Unknown Organization [id number]:LABORATORY [facility] - [address] [facility] [address] Laboratory Report Ordering Provider Test Date Status JOSE RAFAEL BONILLA 02/04/2024 14:10:20 Final Observation Date Value Abnormality Reference (Units ) Status HbA1C 02/04/2024 14:10:20 6.2 Above high normal 4. 0-5.6 (%) Final The use of HbA1c to monitor glycemic status is based on normal hemoglobin and HbA composition. This test should not be used in patients with abnormal hemoglobin that affects the half life of the red blood cell or the in vivo glycation rates. Glucose, estimated average 02/04/2024 14:10:20 131 Above high normal <126 (mg/dL) Hi david Performing Location LAB[facility]ATORY [facility] - [address] [facility] [address]
--- OUTSIDE RECORDS SUMMARY | 2024-02-20 11:43 | External Medical Summary ---
Author Name Unknown Address Unknown Organization [id number]:[facility] [place] [address] Laboratory Report Ordering Provider Test Date Status JOSE RAFAEL BONILLA 02/04/2024 14:10:20 Final Observation Date Value Abnormality Reference (Units ) Status WBC, Total 02/04/2024 14:10:20 12.60 Above high normal 4 .00-10.80 (K/uL) Final RBC 02/04/2024 14:10:20 5.13 4.50-5.25 (M/uL) Final Hemoglobin 02/04/2024 14:10:20 15.1 14.0-16.8 (g/dL) Final HCT 02/04/2024 14:10:20 46.8 40.0-48.4 (%) Final MCV 02/04/2024 14:10:20 91.2 82.0-99.5 (fL) Final MCH 02/04/2024 14:10:20 29.4 27.0-34.0 (pg) Final MCHC 02/04/2024 14:10:20 32.3 32.0-36.0 (g/dL) Final RDW 02/04/2024 14:10:20 15.0 11.5-15.5 (%) Final Platelets 02/04/2024 14:10:20 297 140-400 (K /uL) Final MPV 02/04/2024 14:10:20 11.6 6.6-11.1 ( fL) Final Performing Location [facility] [place] [address]
--- OUTSIDE RECORDS SUMMARY | 2024-02-20 11:43 | External Medical Summary | Summary of Care ---
Author Name Unknown Organization [facility] Address [address] [place] [address] Phone [phone] Care Team Providers Care Sourcing Analyst Name Role Phone Lana Eden MD Primary Care Provider [phone] Encounter Details Date Type Department Care Team (Late st Contact Info) Description 02/09/2024 Documentation Cardiac Studies, [facility] [address] [place] [address] Karina Campuzaon, [address] [place] [address] Allergies Active Allergy Reactions Criticality Noted Date [...] as of this encounter (statuses as of 02/09/2024) Medications Medication Sig Dispensed Refills Start Date [...] rhinitis, unspecified seasonality, unspecified trigger Administer 1 Davin into nostril in the morning and 1 Davin before bedtime. 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 07/30 Steroid-induced [...] as of this encounter (statuses as of 02/09/2024) Resolved Problems Problem Noted Date Diagnosed Date [...] as of this encounter (statuses as of 02/09/2024) Immunizations Name Administration Dates Next Due COVID-19 [...] Influenza Virus Vac cine, Unspecified Formulation 12/19/2021,01/10/2021,12/14/2019,01/10,12/21/2016,01/15/2016,12/28/2015 ,12/28/2014,12/15/2013,12/28/2012,12/13,02/07/2011,01/14/2010,,01/19/2008,02/02/2007 Seasonal Influenza, High Dos e, Trivalent, PF, [...] No 11/28/2023 documented as of this encounter Progress Notes * Sherlyn Nunez OSA - 02/09/2024 3:49 PM EDT 14 day zio monitor placed Emily Nunez [id number] documented in this encounter Plan of Treatment Upcoming Encounters Date Type Department Care Team (Late st Contact Info) Description 02/24/2024 11:40 AM EST Office Visit Rheumatology [place] [phone] [place] [address] Niraj Shukla MD [facility] [address] [place] [address] 02/24/2024 2:30 PM EST Office Visit Cardiology, [facility] [address] Billy Anthony PA-Precious [address] [place] [address] 03/16/2024 2:45 PM EST Office Visit Cardiology, [facility] 132 [place] [address] Karina Campuzano, 400 [facility] [place] [address] 04/22/2024 1:40 PM EST Office Visit General Internal Medicine [facility] [address] [place] [address] Lana Eden MD [address] [facility] [place] [address] 05/10/2024 2:15 PM EST Office Visit Hematology/Oncology [facility] [address] [place] [address] Pepito Chiang MD [address] [place] [address] 05/19/2024 3:00 PM EST Telemedicine General Surgery, [place] [address] [place] [address] Best Shelley MD [address] [place] [address] 06/03/2024 2:00 PM EST Office Visit General Surgery, [facility] [address] [place] [address] Christophe Henriquez MD [address] [place], [place] [phone] 09/02/2024 2:00 PM EDT Office Visit Cardiology, [facility] [address] [place] [address] Billy Anthony PA-C [address] [place] [address] Scheduled Procedures Name Priority Associated Diagnoses Date/Ti [...] 07/15/2022, Additional history exists HbA1c 08/04/2024 02/04/2024, 0709/2023, 10/10/2023, Additional history exists Albumin/Creatinine Ratio 10/09/2024 024, 12/13/2022, 11/13/2022, Additional history exists Diabetic Foot Exam 10/21/2024 10/22/2023 (D one elsewhere), 11/05/2022 (Course Completed), 08/09/2021 GFR 02/03/2025 02/04/2024, 11/12, 11/07/2023, Additional history exists Pneumococcal Vaccine: 65+ Years Completed 05/20/2017, 11/08/2015 Zoster Vaccines Completed 08/18/2019, 04/16, 06/12/2011 VITAMIN D LEVEL ONCE IN A LIFETIME-USE SMARTSET# [id number] Completed 02/10/2023, 11/20/2021, 05/08/2021 Hepatitis B Vaccine [...] Documents on File Type Date 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 Yes, not currently available * Full Code [...] Advance Directives occurred with: Patient Care Teams Sourcing Analyst Relationship Specialty Start Date End Date Lana Eden MD 200 [place] [address] PCP - General Internal Medicine 12/04/20 documented as of this encounter
--- OUTSIDE RECORDS SUMMARY | 2024-02-20 11:43 | External Medical Summary ---
Author Name Unknown Address Unknown Organization [id number]:[facility] [address] [place] [address] Laboratory Report Ordering Provider Test Date Status JOSE RAFAEL BONILLA 02/04/2024 14:10:20 Final Observation Date Value Abnormality Reference (Units ) Status Ferritin 02/04/2024 14:10:20 52 30-400 (ng /mL) Final Performing Location LABORATORY [facility] - [address] [place] [address]
--- OUTSIDE RECORDS SUMMARY | 2024-02-20 11:43 | External Medical Summary | Summary of Care ---
Author Name Unknown Organization [facility] Address [address] [place] [address] Phone [phone] Care Team Providers Care Equipment Engineer Name Role Phone Lana Eden MD Primary Care Provider [phone] Reason for Visit * Reason Comments Consultation Rm 4 Encounter Details Date Type Department Care Team (Late st Contact Info) Description 02/09/2024 1:30 PM EDT Office Visit Cardiology, [facility] [address] [place] [address] Karina Campuzano, [address], [place] [id number] Atrial fibrillation, unspecified type (HCC)* Allergies Active Allergy Reactions Criticality Noted Date [...] as of this encounter (statuses as of 02/18/2024) Medications Medication Sig Dispensed Refills Start Date [...] rhinitis, unspecified seasonality, unspecified trigger Administer 1 [place] into nostril in the morning and 1 [place] before bedtime. 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 Sensorineural hearing loss, bilateral documented as of this encounter (statuses as of 02/18/2024) Resolved Problems Problem Noted Date Diagnosed Date [...] Dyslipidemia, goal to be determined 07/09/2006 09/16/2009 ADVANCE DIRECTIVE INFORMATION 07/09/2006 02/16/2024 Vertigo 11/25/2017 Impacted cerumen 06/22/2008 documented as of this encounter (statuses as of 02/18/2024) Immunizations Name Administration Dates Next Due COVID-19 mRNA, LNP-s, No Pre serve, 2-Dose Series (Moderna) 02/12/2021,06/14/2020,05/17/2020 COVID-19, MRNA-LNP, PF, 50 M CG/0.5 mL, 12 YRS AND ABOVE, IM (MODERNA-Spikevax) [...] No 12/27/2022 Does the household have a [employer] [place] source of income? (Household - for ages [...] on file documented as of this encounter Last Filed Vital Signs Vital Sign Reading Time Taken Comments Blood Pressure 146/62 02/09/2024 1:59 PM EDT Pulse 74 02/09/2024 1:59 PM EDT irreg ular Temperature - - Respiratory Rate 16 02/09/2024 1:59 PM EDT Oxygen Saturation - - Inhaled Oxygen Concentration - - Weight 86.2 kg (190 lb) 02/09/2024 1:59 PM EDT Height 167.6 cm (5' 6") 02/09/2024 1:59 PM EDT Body Mass Index 30.67 02/09/2024 1:59 PM EDT documented in this encounter Functional Status Functional Status Response [...] No 11/28/2023 documented as of this encounter Patient Instructions * Patient Instructions* Karina Campuzano DO - 02/09/2024 2:57 PM EDT For the first week of the monitor take the metoprolol 75mg 2x a day; then for the second week decrease the metoprolol to 50mg 2x a day documented in this encounter Progress Notes * Karina Campuzano DO - 02/09/2024 2:42 PM EDT Subjective Harpreet Oneal is a 83 year old male. Chief Complaint Patient presents with Consultation Rm 4 Pt referred to EP due to AF Referring Provider: Dr. Eden Cardiac Problems: AF diagnosed 01/13/2024 on eliquis and high doses of toprol and diltiazem [id number] (age, HTN, DM) HTN HLD DM PMR Iron deficiency anemia HPI: Pt presents with his today Pt has generalized weakness no energy and a brain foggines-it got worse with the higher doses of emtoprolol He has a tremor Pt was recently hospitalized at [facility] due to AF with RVR-he went due to his watch telling him elevated HR all day-he otherwise did not have any symptoms; he was on high dose of diltiazem 300mg and toprol 50mg daily; and his metoprolol was increased 100bpm 2x a day; but due to not tolerating the high dose his PCP decreased it to 75mg BID-he just started this 3 days ago His BP machine he has noticed HR 60-70s His tachycardia all started after having a "really bad case of the flu" end of 2019 year-most likely this was COVID 19 that he had PMH: Patient Active Problem List Diagnosis ADVANCE DIRECTIVE INFORMATION Sensorineural hearing loss, bilateral HTN, GOAL BELOW 140/90 Hyperlipidemia with target LDL less than 100 Allergic rhinitis Type 2 diabetes mellitus with hemoglobin A1c goal of less than 7.0% (HCC) SVT (supraventricular tachycardia) (HCC) Male hypogonadism PMR (polymyalgia rheumatica) (HCC) Iron deficiency anemia Multiple subsegmental pulmonary emboli without acute cor pulmonale (HCC) joint 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 Calcium Carbonate-Vitamin D 600-200 MG-UNIT Oral Tablet daily. Vitamin D3 125 MCG (5000 UT) Oral Capsule Take 1 Capsule by mouth in the morning. Vitamin K2 100 MCG Oral Capsule Take by mouth 1 Capsule daily . Magnesium 100 MG Oral Capsule Take by mouth every evening. Azelastine HCl 0.1 % Nasal Solution (Astelin) Administer 1 [place] into nostril in the morning and 1 [place] before bedtime. 90 mL 3 Furosemide 20 MG Oral Tablet (Lasix) Take 1 Tablet by mouth in the morning. 90 Tablet 3 Vitamin B-12 1000 MCG Oral Tablet (Cyanocobalamin) Take 1 Tablet by mouth in the morning. Atorvastatin Calcium 20 MG Oral Tablet (Lipitor) TAKE 1 TABLET IN THE MORNING 90 Tablet 3 Eliquis 5 MG Oral Tablet (Apixaban) TAKE 1 TABLET IN THE MORNING AND 1 TABLET BEFORE BEDTIME 180 Tablet 3 CoQ-10 30 MG Oral Capsule Take by mouth. NAC 500 MG Oral Capsule (Acetylcysteine) Take by mouth. Potassium Chloride ER 10 MEQ Oral Tablet Extended Release Take 2 Tablets by mouth daily. 180 Tablet1 predniSONE 5 MG Oral Tablet (Deltasone) Take 1 Tablet by mouth in the morning. metFORMIN HCl ER 500 MG Oral Tablet Extended Release 24 Hour (Glucophage XR) TAKE 1 TABLET IN THE MORNING 90 Tablet 3 dilTIAZem HCl ER Coated Beads 300 MG Oral Capsule Extended Release 24 Hour (Cardizem CD) Take 1 Capsule by mouth in the morning. Irbesartan 150 MG Oral Tablet (Avapro) Take 1 Tablet by mouth in the morning. 90 Tablet 3 Metoclopramide HCl 10 MG Oral Tablet (Reglan) Take 1 Tablet by mouth every 8 hours as needed (trouble swallowing). 120 Tablet 0 Metoprolol Succinate ER 50 MG Oral Tablet Extended Release 24 Hour (toPROL XL) Take 1.5 Tablets by mouth in the morning and 1.5 Tablets before bedtime. No current facility-administered medications for this visit. Past Medical History: Diagnosis Date Colon polyps 12/11/2011 DM2 (diabetes mellitus, type 2) (HCC) Dyslipidemia, goal LDL below 160 Gastroesophageal reflux disease without esophagitis 05/10/2015 HTN, goal below 140/90 Hypogonadism in male 10/30/2020 Impacted cerumen 2004 Paraesophageal hiatal hernia 10/09/2023 Sensorineural hearing loss, bilateral 2004 SVT (supraventricular tachycardia) ([facility]) Vertigo 2004 Past Surgical History: Procedure Laterality Date COLONOSCOPY 2001 [place]/10 years follow up COLONOSCOPY, DIAGNOSTIC (RECTUM) 09/03/2017 adenomatous polyp, diverticulosis/[facility] COLONOSCOPY, DIAGNOSTIC (RECTUM) 07/17/2023 moderate diverticulosis/hemorrhoids/likely malignant tumor/biopsies show adenomatous, invasive adenocarcinoma/COLONOSCOPY FLEXIBLE PROXIMAL DIAGNOSTIC performed by Chet Bhagat DO at ENDOSCOPY [facility] EGD, FLEXIBLE, DIAGNOSTIC 02/10/2019 acid reflux, hiatal hernia, repeat 2 mo / [facility] EGD, FLEXIBLE, DIAGNOSTIC 05/11/2019 acid reflux, hiatal hernia / [facility] EGD, FLEXIBLE, DIAGNOSTIC 07/17/2023 mild schatzki ring/paraesophageal hernia/ESOPHAGOGASTRODUODENOSCOPY (EGD), FLEXIBLE, TRANSORAL, DIAGNOSTIC performed by Chet Bhagat DO at ENDOSCOPY [facility] EGD, FLEXIBLE, DIAGNOSTIC N/A 11/28/2023 ESOPHAGOGASTRODUODENOSCOPY (EGD), FLEXIBLE, TRANSORAL, DIAGNOSTIC performed by Christophe Henriquez MD at [facility] LAPAROSCOPIC COLECTOMY PARTIAL WITH ANASTOMOSIS N/A 08/05/2023 LAPAROSCOPIC PARTIAL COLECTOMY WITH ANASTOMOSIS performed by Best Shelley MD at [facility] MISCELLANEOUS ORDER (HS ONLY) 10/08/2019 skin lesion removed left forehead PARAESOPHAGEAL HERNIA REPAIR, LAP W/ MESH N/A 11/28/2023 LAPAROSCOPIC PARAESOPHAGEAL HERNIA REPAIR W/MESH performed by Christophe Henriquez MD [place] [facility] PARAESOPHAGEAL HERNIA REPAIR, LAP W/O MESH N/A 11/28/2023 LAPAROSCOPIC PARAESOPHAGEAL HERNIA REPAIR WO/ MESH performed by Christophe Henriquez MD at [facility] REMOVE CATARACT, INSERT LENS PROSTH 2019 bilateral Review of patient's allergies indicates: Allergen Reactions Codeine Diarrhea Other reaction(s): "I GOT REALLY SICK" Synthroid [Levothyroxine Sodium] Hives and Rash Augmentin [Amoxicillin-Pot Clavulanate] Unknown Pt states it was so long ago he does not remember reaction/severity. Hydrocodone Bit-Homatrop Mbr Unknown Pt states it was so long ago he does not remember reaction/severity Family History Problem Relation Name Age of Onset Cancer Mother melanoma Neurological Disorder Father Parkinson's Other (Other) Father AAA No Known Problems Sister Other (Other) Grandfather (Paternal) AAA Melanoma Aunt (Maternal) Melanoma Uncle (Maternal) Glaucoma Uncle (Paternal) Family Status Relation Status Mo at age 65 cancerous growth Fa at age 85 parkinsons disease Bro mva Sis Alive PGFA (Not Specified) MAUNT (Not Specified) MUNC (Not Specified) PUNC (Not Specified) Social History Socioeconomic History Marital status: Spouse name: Not on file Number of children: Not on file Years of education: Not on file Highest education level: Not on file Occupational History Not on file Tobacco Use Smoking status: Former Current packs/day: 0.00 Average packs/day: 1 pack/day for 20.0 years (20.0 ttl pk-yrs) Types: Cigarettes Start date: 09/12/1962 Quit date: 09/12/1982 Years since quittin.4 Passive exposure: Past Smokeless tobacco: Never Tobacco comments: quit summer Vaping Use Vaping status: Never Used Substance and Sexual Activity Alcohol use: Not Currently Comment: one drink several days a week Drug use: Never Sexual activity: Yes Partners: Female Other Topics Concern Not on file Social History Narrative Not on file Social Determinants of Health Financial Resource Strain: Low Risk (12/27/2022) Financial Resource Strain Do you have any trouble paying for your medications, or do you think you might in the future? (Adult - for ages 18 years and over): No Does your family have trouble paying for medicine? (Household - for ages 0-17 years): Not on file Food Insecurity: No Food Insecurity (11/28/2023) Food Insecurity Do you need food for this week? (Adult - for ages 18 years and over): No Are you able to get enough food for your family? (Household - for ages 0-17 years): Not on file Does your family need food this week? (Household - for ages 0-17 years): Not on file Do you always have enough food for your family? (Household - for ages 0-17 years): Not on file Transportation Needs: No Transportation Needs (11/28/2023) Transportation Needs Do you have trouble getting a ride to medical visits or work? (Adult - for ages 18 years and over):Never True Does your family have a hard time getting a ride to doctors visits? (Household - for ages 0-17 years): Not on file Has lack of transportation kept you from medical appointments, meetings, work, or from getting things needed for daily living? Check all that apply. (Adult - for ages 18 years and over): No Do you (or your family) have trouble finding or paying for a ride (transportation)? (Household - for ages 0-17 years): Not on file Social Connections: Unknown (02/09/2024) Social Connections How often do you feel lonely or isolated from those around you? (Adult - for ages 18 years and over): Not on file Housing Stability: Low Risk (11/28/2023) Housing Stability Do you currently live in a fdc or have no steady place to sleep at night? (Adult - for ages 18 years and over): Not on file Do you think you are at risk of becoming homeless? (Adult - for ages 18 years and over): No Does your family worry about paying for your home or becoming homeless? (Household - for ages 0-17 years): Not on file Are you homeless or worried that you might be in the future? (Adult - for ages 18 years and over): No Are you (or your family) homeless or worried that you might be in the future? (Household - for ages0-17 years): Not on file Review of Systems Constitutional: Positive for fatigue. Negative for activity change, chills, fever and unexpected weight change. HENT: Negative for postnasal drip, rhinorrhea and sinus pressure. Eyes: Negative for visual disturbance. Respiratory: Negative for shortness of breath. Cardiovascular: Negative for chest pain, palpitations and leg swelling. Gastrointestinal: Negative for blood in stool, constipation, diarrhea, nausea and vomiting. Genitourinary: Negative for dysuria and hematuria. Musculoskeletal: Positive for gait problem. Skin: Negative for rash. Neurological: Positive for weakness. Negative for dizziness, syncope and light-headedness. Objective BP 146/62 | Pulse 74 Comment: irregular | Resp 16 | Ht 1.676 m (5' 6") | Wt 86.2 kg (190 lb) | BMI 30.67 kg/m | BSA 2 m Physical Exam Vitals and nursing note reviewed. Constitutional: General: He is awake. Appearance: Normal appearance. He is well-developed. HENT: Head: Normocephalic and atraumatic. Eyes: General: No scleral icterus. Extraocular Movements: Extraocular movements intact. Neck: Vascular: Normal carotid pulses. No carotid bruit or JVD. Cardiovascular: Rate and Rhythm: Normal rate. Rhythm irregular. Pulses: Carotid pulses are 2+ on the right side and 2+ on the left side. Radial pulses are 2+ on the right side and 2+ on the left side. Posterior tibial pulses are 2+ on the right side and 2+ on the left side. Heart sounds: S1 normal and S2 normal. No murmur heard. Pulmonary: Effort: Pulmonary effort is normal. Breath sounds: Normal breath sounds. No decreased breath sounds, wheezing, rhonchi or rales. Abdominal: Palpations: Abdomen is soft. Musculoskeletal: Cervical back: Neck supple. Right lower leg: No edema. Left lower leg: No edema. Skin: General: Skin is warm and dry. Neurological: General: No focal deficit present. Mental Status: He is alert and oriented to person, place, and time. Psychiatric: Attention and Perception: Attention normal. Mood and Affect: Mood normal. Speech: Speech normal. Behavior: Behavior normal. Behavior is cooperative. Thought Content: Thought content normal. Cognition and Memory: Cognition normal. Judgment: Judgment normal. RESULTS: ECGS: 01/15/2024: AF 99bpm PVC or aberrant conduction 11/26/2023: SR 94bpm With SA Nonspecific ST & T wave abnormality QTc 482ms 11/07/2023: SR 90bpm APC Nonspecific ST abnormality 08/05/2023: ST 101bpm PVC ST & T wave abnormality 07/17/2023: ST 107bpm APC ST & T wave abnormality 10/11/2022: SR 89bpm Nonspecific T wave abnormality 06/14/2022: SR 94bpm APC ST & T wave abnormality 08/21/2021: SR 90bpm PVC T wave abnormality QTc 469ms 05/17/2020: SR 89bpm ST & T wave abnormality 04/28/2019: SR 87bpm PVC 03/29/2019: ST [address] & T wave abnormality 02/20/2019: SR 93bpm LPFB Nonspecific T wave abnormality 08/09/2018: SR 75bpm 03/16/2010 SR 74bpm With SA ST & T wave abnormality 06/22/2008: SR 78bpm Echocardiogram: 07/12/2023: At [facility] Pt in AF EF 60-65% LVH MAC AV sclerosis no 07/24/2021: The qualitative LV ejection fraction is 65-69% (normal). The right ventricular cavity size is normal (basal dimension < 4.2 cm RV apical 4 chamber view). The right ventricular systolic function is normal as assessed by tricuspid annular plane systolic excursion (TAPSE) (normal >1.7cm). Mild aortic valve sclerosis is present. Significant tricuspid regurgitation is absent. The spectral Doppler signal is inadequate to calculate right ventricular and pulmonary artery systolic pressure.. Compared to prior study of 03/04/2019, there is no significant change. Nuclear Stress Test: 05/23/2021: The combined low intensity exercise/Lexiscan myocardial perfusion imaging study revealed normal resting and stress perfusion without evidence of infarction or inducible ischemia. The stress EKG response was nondiagnostic for excluding ischemia with mild baseline repolarization changes that persisted during stress without significant interval change. Frequent supraventricular and ventricular ectopy was present on the stress EKG. Gated SPECT imaging reveals normal myocardial thickening and wall motion. The left ventricular ejection fraction was calculated to be > 70%. Zio Patch: 04/05/2020: REASON FOR STUDY: SVT;14 days CONCLUSIONS: Preliminary Findings Patient had a min HR of 57 bpm, max HR of 214 bpm, and avg HR of 78 bpm. Predominant underlying rhythm was Sinus Rhythm. 4 Ventricular Tachycardia runs occurred, the run with the fastest interval lasting 5 beats with a max rate of 197bpm, the longest lasting 9 beats with an avg rate of 149 bpm. 298 Supraventricular Tachycardia runs occurred, the run with the fastest interval lasting 5 beats with a max rate of 214 bpm, the longest lasting 11.2 secs with an avg rate of 126 bpm. Isolated SVEs were rare (<1.0%), SVE Couplets were rare (<1.0%), and SVE Triplets were rare (<1.0%). Isolated VEs were rare (<1.0%), VE Couplets were rare (<1.0%), and no VE Triplets were present. Ventricular Trigeminy was present. No patient marker or diary entries were submitted 03/31/2019: REASON FOR STUDY: Frequent atrial and ventricular ecotpy. ? P CONCLUSIONS: Patient had a min HR of 53 bpm, max HR of 240 bpm, and avg HR of 82 bpm. Predominant underlying rhythm was Sinus Rhythm. 1 run of Ventricular Tachycardia occurred lasting 7 beats with a max rate of 169 bpm (avg 147 bpm). 180 Supraventricular Tachycardia runs occurred, the run with the fastest interval lasting 5 beats with a max rate of 240 bpm, the longest lasting 33.0 secs with an avg rate of 137 bpm. Supraventricular Tachycardia was detected within +/- 45 seconds of symptomatic patient event(s). Isolated SVEs were frequent (11.1%, [id number]), SVE Couplets were occasional (2.8%, 80850), and SVE Triplets were rare (<1.0%, 4005). Isolated VEs were occasional (2.1%, 42392), VE Couplets were rare (<1.0%, 4825), and VE Tripletswere rare (<1.0%, 34). Ventricular Trigeminy was present. Lab Reviewed: Component Latest Ref Rng 10/10/2023 02/04/2024 BUN 6 - 20 mg/dL 20 CREATININE 0.6 - 1.2 mg/dL 0.9 EGFR >=60 mL/min 82 SODIUM 135 - 146 mmol/L 143 POTASSIUM 3.5 - 5.1 mmol/L 4.0 CHLORIDE 98 - 107 mmol/L 103 CO2 22 - 32 mmol/L 27 ANION GAP 7 - 15 mmol/L 13 GLUCOSE 70 - 120 mg/dL 169 (H) Albumin 3.8 - 5.0 g/dL 3.8 AST 10 - 50 U/L 17 Alkaline Phosphatase 35 - 130 U/L 88 Bilirubin, Total <=1.2 mg/dL 0.4 CALCIUM 8.4 - 10.2 mg/dL 9.7 Protein 6.0 - 8.3 g/dL 6.6 ALT 10 - 50 U/L 20 WBC 4.00 - 10.80 K/uL 12.60 (H) RBC 4.50 - 5.25 M/uL 5.13 HGB 14.0 - 16.8 g/dL 15.1 HCT 40.0 - 48.4 % 46.8 MCV 82.0 - 99.5 fL 91.2 MCH 27.0 - 34.0 pg 29.4 MCHC 32.0 - 36.0 g/dL 32.3 RDW 11.5 - 15.5 % 15.0 PLT 140 - 400 K/uL 297 MPV 6.6 - 11.1 fL 11.6 Triglycerides <=174 mg/dL 218 (H) Cholesterol <200 mg/dL 149 HDL Cholesterol >39 mg/dL 55 Non-HDL Cholesterol <=159 mg/dL 94 Hemoglobin A1C 4.0 - 5.6 % 6.2 (H) Estimated Average Glucose <126 mg/dL 131 (H) LDL Cholesterol (Direct Measure) <=129 mg/dL 67 Ferritin 30 - 400 ng/mL 52 ASSESSMENT: AF diagnosed 01/13/2024-unclear duration and if it is persistent on eliquis and high doses of toproland diltiazem [id number] (age, HTN, DM) HTN HLD DM PMR on prednisone Iron deficiency anemia H/o multiple subsegmental PE Osteoporosis due to chronic steroid use PLAN: -Educated patient about atrial fibrillation treatment options including rate control vs rhythm control with procedures (DCCV vs ablation) or medications as well as anti-coagulation to reduce CVA risk. -Recommend zio patch to assess ventricular rates and AF burden; for the first week on the monitor he is to take metoprolol 75mg BID then for the second week he is to decrease the metoprolol to 50mg BID -Continue high doses of AVN blockers for now; he might benefit from a ppm and AVN ablation -Continue diltiazem -Continue avapro, lipitor, lasix -Cancel f/u with general cardiology in Nov -EP f/u in Dec Karina Campuzano DO documented in this encounter Nursing Notes * Jessica Sevilla NRCMA - 02/09/2024 2:01 PM EDT Patient was identified by name and date of . Examination Room: 4 Name: Harpreet Oneal Date of : (1940). Reason for Visit: Consult visit Interim Hospitalization(s): no Problems/Concerns: foggy head, feels shaky and weak Chest Pain/SOB: none reported Medications reviewed and are up to date via: med list [facility] is a way you can talk to your provider online through e-mail. Would you like to sign up? I can activate it for you? ALREADY ACTIVE Do you have video visit capabilities (email and smart phone)? No. Would you be interested in 6 or 12 return visit being scheduled as a video visit if the provider approves? No Patient was instructed to not get up on the exam table/exam chair until directed and assisted by their provider; patient is to remain seated in the chair/ wheelchair/ exam table/ exam chair for fall prevention and safety reasons. Patient is aware to have assistance to step down off exam table/exam chair with personnel. Patient voiced full comprehension of instructions. TERRI Valentino documented in this encounter Plan of Treatment Upcoming Encounters Date Type Department Care Team (Late st Contact Info) Description 02/24/2024 11:40 AM EST Office Visit Rheumatology [facility] [address] [place] [address] Niraj Shukla MD [address] [facility] [place] [address] 03/19/2024 1:30 PM EST Office Visit Cardiology, [facility] [address] [facility] [place] [address] Tatianna Karina Block, DO [address] [facility] [place] [address] 04/22/2024 1:40 PM EST Office Visit General Internal Medicine [facility] [address] [facility] [place] [address] Lana Eden MD [address] [facility] [place] [address] 05/10/2024 2:15 PM EST Office Visit Hematology/Oncology [facility] [address] [place] [address] Pepito Chiang MD [address] [facility] [place] [address] 05/19/2024 3:00 PM EST Telemedicine General Surgery, [place] [address], [place] [id number] Best Shelley MD [address] [place], [place] [id number] 06/03/2024 2:00 PM EST Office Visit General Surgery, [facility] [address] [place] [address] Christophe Henriquez MD [address] [place], [place] [id number] 09/02/2024 2:00 PM EDT Office Visit Cardiology, [facility] [address] [place] [address] Billy Anthony PA-C [address] [facility] [place] [id number] Scheduled Orders Name Type Priority Associated Diagnoses Orde r Schedule EXTERNAL EKG 8 TO 15 DAYS Holter Routine Atrial fibrillation, unspecified type (HCC) Expected: 02/10/2024 (Approximate), Expires: 02/08/2025 Scheduled Procedures Name Priority Associated Diagnoses Date/Ti [...] MEDICATION NEEDED FOR OSTEOPOROSIS (REFER TO SMARTSET #[id number]) 02/09/2024 *NEPHROLOGY 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 RESISTANT HTN 02/11/2024 DXA Scan 05/29/2024 05/29/2022 Diabetic Eye Exam 07/14/2024 07/15/2023, , 07/15/2022, Additional history exists HbA1c 08/04/2024 02/04/2024, 0709/2023, 10/10/2023, Additional history exists Albumin/Creatinine Ratio 10/09/2024 024, 12/13/2022, 11/13/2022, Additional history exists Diabetic Foot Exam 10/21/2024 10/22/2023 (D one elsewhere), 11/05/2022 (Course Completed), 08/09/2021 GFR 02/03/2025 02/04/2024, 0810/2023, 11/07/2023, Additional history exists Pneumococcal Vaccine: 65+ Years Completed 05/20/2017, 11/08/2015 Zoster Vaccines Completed 08/18/2019, 04/16, 06/12/2011 VITAMIN D LEVEL ONCE IN A LIFETIME-USE SMARTSET# [id number] Completed 02/10/2023, 11/20/2021, 05/08/2021 Hepatitis B Vaccine [...] Visit Diagnoses Diagnosis Atrial fibrillation, unspecified type (HCC)- Primary documented in this encounter Advance Directives Documents on File Type Date Recorded Patient Director Television Expl anation Advance Directives and Living Will [...] the patient have Health Care Power of Primary [place]? Yes, not currently available * Full Code [...] Advance Directives occurred with: Patient Care Teams Equipment Engineer Relationship Specialty Start Date End Date Lana Eden MD [address] [place] [address] PCP - General Internal Medicine 12/04/20 documented as of this encounter
--- OUTSIDE RECORDS SUMMARY | 2024-02-20 11:43 | External Medical Summary | Summary of Care ---
Author Name Unknown Organization [facility] Address [address] [place] [address] Phone [phone] Care Team Providers Care Tail Board Man Name Role Phone Lana Eden MD Primary Care Provider [phone] Reason for Visit * Reason Comments Follow Up Pt here for a follow up. Pt says he feels "weak" Encounter Details Date Type Department Care Team (Late st Contact Info) Description 02/06/2024 4:00 PM EDT Office Visit General Internal Medicine [facility] [address] [place] [address] Teo Aj [address] [place] [address] PAF (paroxysmal atrial fibrillation) ([facility])*; Fatigue, unspecified type; Type 2 diabetes mellitus with hemoglobin A1c goal of less than 7.0% ([facility]); HTN, GOAL BELOW 140/90 Allergies Active Allergy Reactions Criticality Noted Date [...] rhinitis, unspecified seasonality, unspecified trigger Administer 1 [place] into nostril in the morning and 1 [place] before bedtime. 90 mL 3 04/03/2023 Active [...] 01/14/2024 Active Irbesartan 150 MG Oral Tablet (Avapro)Indicatio [...] morning and 1.5 Tablets before bedtime. Active Zinc 22.5 MG Oral Tablet Take by mouth. 4 Discontinue d(Patient preference/ discontinua tion) Azithromycin 250 MG Oral Tablet (Zithromax)Indica tions:Bronchiolit is Take 1 Tablet by mouth in the morning. 01/14/2024 4 Discontinue d(End of Procedure) Metoprolol Succinate ER 100 MG Oral Tablet Extended Release 24 Hour (toPROL XL)Indications:At rial fibrillation, unspecified type (HCC) Take 1 Tablet by mouth in the morning and 1 Tablet before bedtime. 180 Tablet 1 01/15/2024 4 Discontinue d(Medicatio n/Dose Changed) Metoprolol Succinate ER 50 MG Oral Tablet Extended Release 24 Hour (toPROL XL) Take 1.5 Tablets by mouth in the morning. 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 Chief Complaint Patient presents with Follow Up Pt here for a follow up. Pt says he feels "weak" HPI: Patient presents for generalized weakness. Patient was recently hospitalized at [facility] for Afib w/ RVR as well as SIRS related to Atypical PNA/Bronchiolitis. Was controlled with IV Lopressor and then converted to Lopressor 50mg Q6H. Echo in hospital showed EF 55-60%. No acute issues.At Discharge was switched to Toprol XL at dose of 100mg BID. Continued on Diltiazem 300mg daily. OnEliquid 5mg BID for OAC. Also treated with Azithromycin for atypical PNA. States since switch to Toprol XL formulation at home has had increased fatigue. States feels no energy. No "Get up and go." Denies any chest pain, shortness of breath, palpitations, lightheadedness/dizziness or diaphoresis. States does check his blood pressure/heart rate twice daily prior to takinghis medications. Does not note any obvious hypotension or bradycardia. Has an appointment next weekwith Cardiology in [place]. 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 90 mL 3 Furosemide 20 [...] 1 Capsule by mouth in the morning. Metoprolol Succinate ER 100 MG Oral Tablet Extended Release 24 Hour (toPROL XL) Take 1 Tablet by mouth in the morning and 1 Tablet before bedtime. 180 Tablet 1 Irbesartan 150 MG Oral Tablet (Avapro) Take 1 Tablet by mouth in the morning. 90 Tablet 3 Metoclopramide HCl 10 MG Oral Tablet (Reglan) Take 1 Tablet by mouth every 8 hours as needed (trouble swallowing). 120 Tablet 0 Fluzone High-Dose 0.5 ML Suspension Prefilled Syringe Inject into a large muscle. 0.5 mL 0 No current facility-administered medications for this visit. Past Medical History: Diagnosis Date Colon polyps 12/11/2011 DM2 (diabetes mellitus, type 2) (HCC) Dyslipidemia, goal LDL below 160 Gastroesophageal reflux disease without esophagitis 05/10/2015 HTN, goal below 140/90 Hypogonadism in male 10/30/2020 Impacted cerumen 2004 Paraesophageal hiatal hernia 10/09/2023 Sensorineural hearing loss, bilateral 2004 SVT (supraventricular tachycardia) ([facility]) Vertigo 2004 Past Surgical History: Procedure Laterality Date COLONOSCOPY 2001 [place]/10 years follow up COLONOSCOPY, DIAGNOSTIC (RECTUM) 09/03/2017 adenomatous polyp, diverticulosis/[facility] COLONOSCOPY, DIAGNOSTIC (RECTUM) 07/17/2023 moderate diverticulosis/hemorrhoids/likely malignant tumor/biopsies show adenomatous, invasive adenocarcinoma/COLONOSCOPY FLEXIBLE PROXIMAL DIAGNOSTIC performed by Chet Bhagat DO at ENDOSCOPY [facility] EGD, FLEXIBLE, DIAGNOSTIC 02/10/2019 acid reflux, hiatal hernia, repeat 2 mo / [facility] EGD, FLEXIBLE, DIAGNOSTIC 05/11/2019 acid reflux, hiatal hernia / [facility] EGD, FLEXIBLE, DIAGNOSTIC 07/17/2023 mild schatzki ring/paraesophageal hernia/ESOPHAGOGASTRODUODENOSCOPY (EGD), FLEXIBLE, TRANSORAL, DIAGNOSTIC performed by Chet Bhagat DO at [facility] EGD, FLEXIBLE, DIAGNOSTIC N/A 11/28/2023 ESOPHAGOGASTRODUODENOSCOPY (EGD), FLEXIBLE, TRANSORAL, DIAGNOSTIC performed by Christophe Henriquez MD at [facility] LAPAROSCOPIC COLECTOMY PARTIAL WITH ANASTOMOSIS N/A 08/05/2023 LAPAROSCOPIC PARTIAL COLECTOMY WITH ANASTOMOSIS performed by Best Shelley MD at [facility] MISCELLANEOUS ORDER ([facility] ONLY) 10/08/2019 skin lesion removed left forehead PARAESOPHAGEAL HERNIA REPAIR, LAP W/ MESH N/A 11/28/2023 LAPAROSCOPIC PARAESOPHAGEAL HERNIA REPAIR W/MESH performed by Christophe Henriquez MD at [facility] PARAESOPHAGEAL HERNIA REPAIR, LAP W/O MESH N/A 11/28/2023 LAPAROSCOPIC PARAESOPHAGEAL HERNIA REPAIR WO/ MESH performed by Christophe Henriquez MD at [facility] REMOVE CATARACT, INSERT LENS PROSTH 2019 bilateral [...] years): Not on file Social Connections: Unknown (02/06/2024) Social Connections How often do you feel lonely or isolated from those around you? (Adult - for ages 18 years and over): Not on file Housing Stability: Low Risk (11/28/2023) Housing Stability Do you currently live in a long term or have no steady place to sleep [...] file Review of Systems Constitutional: Positive for fever. Negative for chills and fatigue. HENT: Negative for congestion, sore throat and trouble swallowing. Eyes: Negative for photophobia and pain. Respiratory: Negative for cough, shortness of breath and wheezing. Cardiovascular: Negative for chest pain, palpitations and leg swelling. Gastrointestinal: Negative for abdominal distention, abdominal pain, nausea and vomiting. Genitourinary: Negative for dysuria and frequency. Musculoskeletal: Negative for back pain and neck stiffness. Skin: Negative for pallor. Neurological: Negative for dizziness, light-headedness and headaches. Psychiatric/Behavioral: Negative for sleep disturbance. The patient is not nervous/anxious. Objective BP 142/80 | Pulse 68 | Temp 35.8 C (96.5 F) (Tympanic) | Wt 85.1 kg (187 lb 9.6 oz) | SpO2 96% | BMI 31.22 kg/m | BSA 1.98 m Physical Exam Constitutional: General: He is not in acute distress. Appearance: He is not ill-appearing. HENT: Head: Normocephalic and atraumatic. Right Ear: Tympanic membrane, ear canal and external ear normal. Left Ear: Tympanic membrane, ear canal and external ear normal. Nose: Nose normal. No congestion or rhinorrhea. Mouth/Throat: Mouth: Mucous membranes are moist. Pharynx: Oropharynx is clear. Eyes: General: No scleral icterus. Extraocular Movements: Extraocular movements intact. Conjunctiva/sclera: Conjunctivae normal. Pupils: Pupils are equal, round, and reactive to light. Neck: Vascular: No carotid bruit. Cardiovascular: Rate and Rhythm: Normal rate. Rhythm irregular. Pulses: Normal pulses. Heart sounds: Normal heart sounds. No murmur heard. No friction rub. No gallop. Pulmonary: Effort: Pulmonary effort is normal. No respiratory distress. Breath sounds: Normal breath sounds. No wheezing, rhonchi or rales. Abdominal: General: Bowel sounds are normal. There is no distension. Palpations: Abdomen is soft. There is no mass. Tenderness: There is no abdominal tenderness. There is no right CVA tenderness or left CVA tenderness. Musculoskeletal: General: No swelling or tenderness. Normal range of motion. Cervical back: Normal range of motion and neck supple. Right lower leg: No edema. Left lower leg: No edema. Skin: General: Skin is warm and dry. Coloration: Skin is not jaundiced. Findings: No rash. Neurological: General: No focal deficit present. Mental Status: He is oriented to person, place, and time. Cranial Nerves: No cranial nerve deficit. Sensory: No sensory deficit. Motor: No weakness. Psychiatric: Mood and Affect: Mood normal. Behavior: Behavior normal. ASSESSMENT/PLAN: PAF (paroxysmal atrial fibrillation) ([facility]) (Primary) Fatigue, unspecified type Type 2 diabetes mellitus with hemoglobin A1c goal of less than 7.0% ([facility]) HTN, GOAL BELOW 140/90 Plan: Patient presents to office for hospital follow-up at [facility]. Hospital records reviewed Has been noting increased fatigue, lack of energy since discharge from hospital. Feels it is related to his metoprolol succinate being increased to 100 mg twice daily. No obvious note of hypotension or bradycardia at home per patient. Vitals overall stable today Suggested to patient that we can make a slight decrease of his metoprolol succinate to 75 mg twice daily. Will see if this helps with his symptoms. Patient has also been continued on diltiazem 300 mgdaily Explained to patient that will need to monitor his blood pressure closely. If this becomes elevatedwith decrease in metoprolol may be able to adjust his irbesartan in the near future Continue Eliquis 5 mg twice daily for anticoagulation related to Afib Counseled on importance of keeping his Cardiology follow-up on Friday. Will follow-up on recommendations Should continue checking his blood pressure/pulse twice daily and keep log for follow-up Lab work including CMP, CBC. Echocardiogram results from hospitalization at [facility] personally reviewed Follow Up: Return if symptoms worsen or fail to improve, for Follow up next routine with PCP as scheduled. | For: Follow up next routine with PCP as scheduled | Check-out note: Will follow up with patient over portal next week for recheck Cardiology follow up Friday I spent a total of 40-54 minutes (exact time 45 mins) on the date of service in preparation, delivery, and documentation of the care provided to Harpreet Oneal excluding any time spent in the performance of separately billed services or time spent by another provider/QHP. Teo Aj DO documented in this encounter Nursing Notes * Mckenzie Perez Student - 02/06/2024 3:56 PM EDT Chief Complaint Patient presents with Follow Up Pt here for a follow up. Pt says he feels "weak" documented in this encounter Plan of Treatment Upcoming Encounters Date Type Department Care Team (Late st Contact Info) Description 02/09/2024 1:30 PM EDT [facility] [address] [place] [address] Karina Campuzano DO [address] [place] [address] 02/24/2024 11:40 AM EST Office Visit Rheumatology [facility] [address] [place] [address] Niraj Shukla MD [address] [place] [address] [place] [address] 02/24/2024 2:30 PM EST Office Visit Cardiology, [facility] [address] [place] [address] Billy Anthony PA-C [address] [place] [address] 04/22/2024 1:40 PM EST Office Visit General Internal Medicine [facility] [address] [facility] [place] [address] Lana Eden MD [address] [facility] [place] [address] 05/10/2024 2:15 PM EST Office Visit Hematology/Oncology [facility] [address] [facility] [place] [id number] Pepito Chiang MD [address] [place] [address] 05/19/2024 3:00 PM EST Telemedicine General Surgery, [place] [address] [place], [place] [id number] Best Shelley MD [address] [place] [address] 06/03/2024 2:00 PM EST Office Visit General Surgery, [facility] [address] [facility] [address] Christophe Henriquez MD [address] [place] [address] 09/02/2024 2:00 PM EDT Office Visit Cardiology, [facility] [address] [place] [address] Billy Anthony PAShiraC [address] [place] [address] Scheduled Procedures Name Priority Associated Diagnoses Date/Ti [...] D LEVEL ONCE IN A LIFETIME-USE SMARTSET# [id number] Completed 02/10/2023, 11/20/2021, 05/08/2021 Hepatitis B Vaccine [...] as of this encounter Visit Diagnoses Diagnosis PAF (paroxysmal atrial fibrillation) (HCC)- Primary Atrial fibrillation Fatigue, unspecified type Type 2 diabetes mellitus with hemoglobin A1c goal of less than 7.0% (HCC) HTN, GOAL BELOW 140/90 Unspecified essential hypertension documented in this encounter Advance Directives Documents on File Type Date Recorded 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 Yes, not currently available * Full Code [...] Advance Directives occurred with: Patient Care Teams Tail Board Man Relationship Specialty Start Date End Date Lana Eden MD [address] [place] [address] PCP - General Internal Medicine 12/04/20 documented as of this encounter
--- OUTSIDE RECORDS SUMMARY | 2024-02-20 11:43 | External Medical Summary | Summary of Care ---
Author Name Unknown Organization [facility] Address [address] [place] [address] Phone [phone] Care Team Providers Care Straight Knife Machine Cutter Name Role Phone Lana Eden MD Primary Care Provider [phone] Reason for Visit * Reason Onset Date Comments Blood Pressure Check Blood Pressure Check 02/04/2024 Encounter Details Date Type Department Care Team (Late st Contact Info) Description 02/04/2024 3:00 PM EDT Nurse Only Ancillary [facility] [address] [facility] [place] [address] Nurse, Int Med [address] [place] [address] Blood Pressure Check; Blood Pressure Check Allergies Active Allergy Reactions Criticality Noted Date [...] rhinitis, unspecified seasonality, unspecified trigger Administer 1 [place] into nostril in the morning and 1 [place] before bedtime. 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 The blood pressure was obtained using the left arm in the sitting position using a adult large cuff. The results were charted in Vital Signs. BP Readings from Last 3 Encounters: 02/04/24 136/66 01/15/24 120/70 01/06/24 183/70 BP 136/66 (BP Site: Left Arm, BP Position: Sitting, BP Cuff Size: Large) | Pulse 80 Comment: Apical Patient denies headache, pressure in head, dizziness, lightheadedness, chest discomfort, focal neurological symptoms, change in vision, nose bleeds. Did patient take medications today? Yes Patient states he "foggy", but not dizzy or lightheaded. Patient states he also is having hand tremors, feeling shaky. Informed Dr. Cleveland of information above. Per Dr. Cleveland ok for patient to go and to follow up with Dr. Aj at his upcoming appointment. Informed patient and patient's and they both verbalized understanding and were agreeable. documented in this encounter Plan of Treatment Upcoming Encounters Date Type Department Care Team (Late st Contact Info) Description 02/06/2024 4:00 PM EDT Office Visit [facility] [place] [address] [place] [address] Teo Aj, DO [address] [place] [address] 02/09/2024 1:30 PM EDT Office Visit Cardiology, [facility] [address] [facility] [address] Tatianna Karina Mary, DO [address] [facility] [place] [address] 02/24/2024 11:40 AM EST Office Visit Rheumatology [place] [phone] [facility] [place], [place] [address] Niraj Shukla MD [facility] [place], [place] [address] 02/24/2024 2:30 PM EST Office Visit Cardiology, [facility] [address] [facility] [place] [address] Billy Anthony PA-C [address] [facility] [place] [address] 04/22/2024 1:40 PM EST Office Visit General Internal Medicine [facility] [address] [place], [place] [address] Lana Eden MD [address] [place], [place] [address] 05/10/2024 2:15 PM EST Office Visit Hematology/Oncology [facility] [address] [place], [place] [phone] Pepito Chiang MD [address] [place], [place] [address] 05/19/2024 3:00 PM EST Telemedicine General Surgery, [place] [address] [place] [address] Best Shelley MD [address] [place] [address] 06/03/2024 2:00 PM EST Office Visit General Surgery, [facility] [address] [facility] [place] [address] Christophe Henriquez MD [address] [facility] [place] [address] 09/02/2024 2:00 PM EDT Office Visit Cardiology, [facility] [address] [facility] [place] [address] Billy Anthony PA-C [address] [facility] [place] [address] Scheduled Procedures Name Priority Associated Diagnoses Date/Ti [...] D LEVEL ONCE IN A LIFETIME-USE SMARTSET# [id number] Completed 02/10/2023, 11/20/2021, 05/08/2021 Hepatitis B Vaccine [...] Not on filedocumented as of this encounter Procedures Procedure Name Priority Date/Time Associated Diagnosis Comments BLOOD PRESSURE Routine 02/04/2024 2:34 PM EDT HTN, goal below 140/90 documented in this encounter Results * BLOOD PRESSURE (02/04/2024 2:34 PM EDT) Narrative Andrea Manley RN - 02/04/2024 2:34 PM EDT BP 136/66 (BP Site: Left Arm, BP Position: Sitting, BP Cuff Size: Large) | Pulse 80 Comment: Apical Shell Cleveland MD [facility] documented in this encounter Visit Diagnoses Diagnosis HTN, goal below 140/90- Primary Unspecified essential hypertension documented in this encounter Advance Directives Documents on File Type Date 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 Yes, not currently available * Full Code [...] Advance Directives occurred with: Patient Care Teams Straight Knife Machine Cutter Relationship Specialty Start Date End Date Lana Eden MD [address] [facility] [place] [address] PCP - General Internal Medicine 12/04/20 documented as of this encounter
--- OUTSIDE RECORDS SUMMARY | 2024-02-20 11:43 | External Medical Summary | Summary of Care ---
Author Name Unknown Organization [facility] Address [address] [place] [address] Phone [phone] Care Team Providers Care Mail Reader Name Role Phone Lana Eden MD Primary Care Provider [phone] Reason for Visit * Reason Onset Date Comments Advice 01/13/2024 Raj Encounter Details Date Type Department Care Team (Late st Contact Info) Description 01/13/2024 Telephone Cardiology, [facility] [address] [place] [address] Billy Anthony PA-C [address] [place] [address] Advice (Raj) Allergies Active Allergy Reactions Criticality Noted Date [...] as of this encounter (statuses as of 02/03/2024) Medications Medication Sig Dispensed Refills Start Date [...] rhinitis, unspecified seasonality, unspecified trigger Administer 1 Reddell into nostril in the morning and 1 Reddell before bedtime. 90 mL 3 04/03/2023 Active [...] THE MORNING 90 Tablet 3 12/17/2023 Active Metoclopramide HCl 10 MG Oral Tablet (Reglan) Take 1 Tablet by mouth every 8 hours as needed (trouble swallowing). 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 Pt aware and is agreeable to appt location date and time. TERRI Guerin * Telephone Encounter - Rafaela Garay CMA - 01/13/2024 3:10 PM EDT I called the patient and better explained the scheduling process, that our office does not "find" appointments for patients. He would like first available appt with Billy and is agreeable to being placed on the fastpass and cancellation list. Asaf - please schedule patient for first available hospital discharge appt with Billy and place on fast pass. * Telephone Encounter - Jannet Hamlin OSA - 01/13/2024 2:44 PM EDT Person calling: Harpreet Relationship to patient: self Phone/Fax to return call: [phone] Reason for call(brief): discharge appt Pharmacy: Provider Name:Raj Detailed message to office:pt was recently discharged and told to schedule with stoker erector, firstavail appt with any provider was in Apr. Pt did not want to schedule, be placed on fast pass or recall list. He wanted to send a message to the office to find him an opening. Please call to advise. documented in this encounter Plan of Treatment Upcoming Encounters Date Type Department Care Team (Late st Contact Info) Description 02/04/2024 2:00 PM EDT Laboratory Laboratory [facility] [place] [address] [place] [address] Park, Lab [facility] [address] [facility] [place] [address] 02/04/2024 3:00 PM EDT Nurse Only Ancillary [facility] [place] [address] [place] [address] Nurse, Int Med [address] [facility] [place] [address] 02/09/2024 1:30 PM EDT Office Visit Cardiology, [facility] [address] [facility] [place] [address] Karina Campuzano, [address] [facility] [place] [address] 02/24/2024 11:40 AM EST Office Visit Rheumatology [place] [address] [facility] [place], [place] [address] Niraj Shukla MD [facility] [place] [address] 02/24/2024 2:30 PM EST Office Visit Cardiology, [facility] [address] [facility] [place] [address] Billy Anthony PA-C [address] [facility] [place] [address] 04/22/2024 1:40 PM EST Office Visit General Internal Medicine [facility] [address] [place], [place] [address] Lana Eden MD [address] [place] [address] 05/10/2024 2:15 PM EST Office Visit Hematology/Oncology [facility] [address] [place], [place] [address] Pepito Chiang MD [address] [place] [address] 05/19/2024 3:00 PM EST Telemedicine General Surgery, [place] [address] [place] [address] Best Shelley MD [address] [place] [address] 06/03/2024 2:00 PM EST Office Visit General Surgery, [facility] [address] [place] [address] Christophe Henriquez MD [address] [facility] [place] [address] 09/02/2024 2:00 PM EDT Office Visit Cardiology, 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 Yes, not currently available * Full Code [...] Advance Directives occurred with: Patient Care Teams Mail Reader Relationship Specialty Start Date End Date Lana Eden MD [address] [place], [place] [address] PCP - General Internal Medicine 12/04/20 documented as of this encounter
--- OUTSIDE RECORDS SUMMARY | 2024-02-20 11:43 | External Medical Summary | Summary of Care ---
Author Name Unknown Organization [facility] Address [address] [place] [address] Phone [phone] Care Team Providers Care Career Services Manager Name Role Phone Lana Eden MD Primary Care Provider [phone] Reason for Visit * Reason Onset Date Comments Hospital Follow-Up Was told to s cardio in 3-5 days, can't get appointment until April Hospital Follow-Up 01/15/2024 Encounter Details Date Type Department Care Team (Latest Contact Info) Description 01/15/2024 2:20 PM EDT Office Visit General Internal Medicine [facility] [address] [facility] [place], [place] [id number] Lana Eden MD [address] [place] [address] Atrial fibrillation, unspecified type (HCC)*; Hospital discharge follow-up; Type 2 diabetes mellitus with hemoglobin A1c goal of less than 7.0% (HCC); SVT (supraventricular tachycardia) (HCC); Steroid-induced osteoporosis; Sensorineural hearing loss, bilateral; S/P repair of paraesophageal hernia; Multiple subsegmental pulmonary emboli without acute cor pulmonale (HCC); PMR (polymyalgia rheumatica) (HCC); Malignant neoplasm of splenic flexure (HCC); Male hypogonadism; intermediate current use of systemic steroids; Iron deficiency anemia, unspecified iron deficiency anemia type; Hyperlipidemia with target LDL less than 100; Allergic rhinitis, unspecified seasonality, unspecified trigger; HTN, GOAL BELOW 140/90; Bronchiolitis Allergies Active Allergy Reactions Criticality Noted Date [...] as of this encounter (statuses as of 01/23/2024) Medications Medication Sig Dispensed Refills Start Date End Date Status Iron 325 (65 Fe) MG Oral Tablet Take 1 Tablet by mouth once. Active Calcium Carbonate-Vitami n D 600-200 MG-UNIT Oral Tablet daily. 2 Active Vitamin D3 125 MCG (5000 UT) Oral Capsule Take 1 Capsule by mouth in the morning. Active Vitamin K2 100 MCG Oral Capsule Take by mouth 1 Capsule daily . Active Magnesium 100 MG Oral Capsule Take by mouth every evening. Active Zinc 22.5 MG Oral Tablet Take by mouth. Active Azelastine HCl 0.1 % Nasal Solution (Astelin)Indicat ions:Allergic rhinitis, unspecified seasonality, unspecified trigger Administer 1 [place] into nostril in the morning and 1 [place] before bedtime. 90 mL 3 3 Active Furosemide 20 MG Oral Tablet (Lasix)Indicatio ns:HTN, goal below 140/90,Edema, unspecified type Take 1 Tablet by mouth in the morning. 90 Tablet 3 4 Active Vitamin B-12 1000 MCG Oral Tablet (Cyanocobalamin) Take 1 Tablet by mouth in the morning. Active Atorvastatin Calcium 20 MG Oral Tablet (Lipitor)Indicat ions:Dyslipidemi a, goal LDL below 160 TAKE 1 TABLET IN THE MORNING 90 Tablet 3 4 Active Eliquis 5 MG Oral Tablet (Apixaban) TAKE 1 TABLET IN THE MORNING AND 1 TABLET BEFORE BEDTIME 180 Tablet 3 4 Active CoQ-10 30 MG Oral Capsule Take by mouth. Active NAC 500 MG Oral Capsule (Acetylcysteine) Take by mouth. Acti ve Potassium Chloride ER 10 MEQ Oral Tablet Extended ReleaseIndicatio ns:Hypokalemia Take 2 Tablets by mouth daily. 180 Tablet 1 4 Active predniSONE 5 MG Oral Tablet (Deltasone)Indic ations:Polymyalg ia rheumatica (HCC) Take 1 Tablet by mouth in the morning. 5mg alternating with 2.5mg every other day. 4 Active metFORMIN HCl ER 500 MG Oral Tablet Extended Release 24 Hour (Glucophage XR)Indications:T ype 2 diabetes mellitus with hemoglobin A1c goal of less than 7.0% (HCC) TAKE 1 TABLET IN THE MORNING 90 Tablet 3 4 Active Metoclopramide HCl 10 MG Oral Tablet (Reglan) Take 1 Tablet by mouth every 8 hours as needed (trouble swallowing). 120 Tablet 4 Active Azithromycin 250 MG Oral Tablet (Zithromax)Indic ations:Bronchiol itis Take 1 Tablet by mouth in the morning. 4 Active dilTIAZem HCl ER Coated Beads 300 MG Oral Capsule Extended Release 24 Hour (Cardizem CD)Indications:A trial fibrillation, unspecified type (HCC) Take 1 Capsule by mouth in the morning. 4 Active Metoprolol Succinate ER 100 MG Oral Tablet Extended Release 24 Hour (toPROL XL)Indications:A trial fibrillation, unspecified type (HCC) Take 1 Tablet by mouth in the morning and 1 Tablet before bedtime. 180 Tablet 1 4 Active Irbesartan 150 MG Oral Tablet (Avapro)Indicati ons:HTN, goal below 140/90 Take 1 Tablet by mouth in the morning. 90 Tablet 3 4 Active Irbesartan 300 MG Oral Tablet (Avapro) TAKE 1 TABLET IN THE MORNING 90 Tablet 3 4 01/15/20 24 Discontinued(Med ication/Dose Changed) Metoprolol Succinate ER 25 MG Oral Tablet Extended Release 24 Hour (toPROL XL) Take 2 Tablets by mouth in the morning. 180 Tablet 2 4 01/15/20 24 Discontinued dilTIAZem HCl ER 300 MG Oral Tablet Extended Release 24 Hour Take 300 mg by mouth every evening. 01/15/20 24 Discontinued Metoprolol Succinate ER 100 MG Oral Tablet Extended Release 24 Hour (toPROL XL) Take 1 Tablet by mouth in the morning and 1 Tablet before bedtime. 4 01/15/20 24 Discontinued documented as of this encounter (statuses as of 01/23/2024) Active Problems Problem Noted Date Diagnosed Date S/P repair of paraesophageal hernia 12/21/2023 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 intermediate current use of systemic steroids 07/30 Steroid-induced [...] as of this encounter (statuses as of 01/23/2024) Resolved Problems Problem Noted Date Diagnosed Date [...] as of this encounter (statuses as of 01/23/2024) Immunizations Name Administration Dates Next Due COVID-19 [...] Sign Reading Time Taken Comments Blood Pressure 120/70 01/15/2024 2:29 PM EDT Pulse 92 01/15/2024 2:29 PM EDT Temperature 36.9 C (98.4 F) 01/15/2024 2:29 PM ED T Respiratory Rate 16 01/15/2024 2:29 PM EDT Oxygen Saturation - - Inhaled Oxygen Concentration - - Weight 88.8 kg (195 lb 11.2 oz) 01/15/2024 2:29 PM EDT Height 165.1 cm (5' 5") 01/15/2024 2:29 PM EDT Body Mass Index 32.57 01/15/2024 2:29 PM EDT documented in this [...] as of this encounter Progress Notes * Lana Eden MD - 01/15/2024 2:57 PM EDT SUBJECTIVE: Harpreet Oneal is a 83 year old male. Chief Complaint Patient presents with Hospital Follow-Up Was told to see cardio in 3-5 days, can't get appointment until April HPI: 83 year old male with a history of HTN, Hyperlipidemia, DVT, SVT, GERD, Prediabetes, Hypogonadism, TVA of the colon, and possible Myasthenia Gravis presents here for hospital follow up. Pt was not having symptoms, but was given alarm or alert by his apple watch that he was having frequent episodes of AFib . Presented to hospital on January 11, 2024 . He was found to have AFib with RVR and atypical pneumonia. He was then admitted and treated with IV Lopressor 1st every 6 hours and then transitioned to oral Lopressor and was given azithromycin for atypical pneumonia or bronchiolitis. Labs were overall normal and Imaging chest x-ray with bronchiolitis/atypical pneumonia. He was seen by line o scribe operator . Rest of the hospital course unremarkable . He was sent home on January 13, 2024 on increased dose of metoprolol, remainder of the Z-Juan Francisco to finish the course and other home medication. Since discharge feeling better . Hospital records reviewed and updated. The patient's medication list was reviewed and updated as needed. Current issues now- -he is confused about metoprolol dose as he was asked to double his dose he was taking at home which he understood was 50 mg twice a day and in fact was 100 mg twice a day per discharge summary Patient Active Problem List Diagnosis ADVANCE DIRECTIVE INFORMATION Sensorineural hearing loss, bilateral HTN, GOAL BELOW 140/90 Hyperlipidemia with target LDL less than 100 Allergic rhinitis Type 2 diabetes mellitus with hemoglobin A1c goal of less than 7.0% (HCC) SVT (supraventricular tachycardia) (HCC) Male hypogonadism PMR (polymyalgia rheumatica) (HCC) Iron deficiency anemia Multiple subsegmental pulmonary emboli without acute cor pulmonale (HCC) intermediate current use of systemic steroids Steroid-induced osteoporosis [...] Oral Capsule Take by mouth every evening. Zinc 22.5 MG Oral Tablet Take by mouth. Azelastine HCl 0.1 % Nasal Solution (Astelin) Administer 1 [place] into nostril in the morning and 1 [place] before bedtime. 90 mL 3 Furosemide 20 [...] 1 TABLET BEFORE BEDTIME 180 Tablet 3 Irbesartan 300 MG Oral Tablet (Avapro) TAKE 1 TABLET IN THE MORNING (Patient taking differently: Take 1 Tablet by mouth at bedtime.) 90 Tablet 3 CoQ-10 30 MG Oral Capsule Take by mouth. NAC 500 MG Oral Capsule (Acetylcysteine) Take by mouth. predniSONE 5 MG Oral Tablet (Deltasone) Take 1 Tablet by mouth in the morning. 5mg alternating with2.5mg every other day. metFORMIN HCl ER 500 MG Oral Tablet Extended Release 24 Hour (Glucophage XR) TAKE 1 TABLET IN THE MORNING 90 Tablet 3 Metoclopramide HCl 10 MG Oral Tablet (Reglan) Take 1 Tablet by mouth every 8 hours as needed (trouble swallowing). 120 Tablet 0 Metoprolol Succinate ER 100 MG Oral Tablet Extended Release 24 Hour (toPROL XL) Take 1 Tablet by mouth in the morning and 1 Tablet before bedtime. Azithromycin 250 MG Oral Tablet (Zithromax) Take 1 Tablet by mouth in the morning. dilTIAZem HCl ER Coated Beads 300 MG Oral Capsule Extended Release 24 Hour (Cardizem CD) Take 1 Capsule by mouth in the morning. Potassium Chloride ER 10 MEQ Oral Tablet Extended Release Take 2 Tablets by mouth daily. 180 Tablet1 Fluzone High-Dose 0.5 ML Suspension Prefilled Syringe Inject into a large muscle. 0.5 mL 0 No current facility-administered medications for this visit. Review of patient's allergies indicates: Allergen Reactions Codeine Diarrhea Other reaction(s): "I GOT REALLY SICK" Synthroid [Levothyroxine Sodium] Hives and Rash Augmentin [Amoxicillin-Pot Clavulanate] Unknown Pt states it was so long ago he does not remember reaction/severity. Hydrocodone Bit-Homatrop Mbr Unknown Pt states it was so long ago he does not remember reaction/severity Past Medical History: Diagnosis Date Colon polyps 12/11/2011 DM2 (diabetes mellitus, type 2) ([facility]) Dyslipidemia, goal LDL below 160 Gastroesophageal reflux disease without esophagitis 05/10/2015 HTN, goal below 140/90 Hypogonadism in male 10/30/2020 Impacted cerumen 2004 Paraesophageal hiatal hernia 10/09/2023 Sensorineural hearing loss, bilateral 2004 SVT (supraventricular tachycardia) ([facility]) Vertigo 2004 Past Surgical History: Procedure Laterality Date COLONOSCOPY 2001 [place]/10 years follow up COLONOSCOPY, DIAGNOSTIC (RECTUM) 09/03/2017 adenomatous polyp, diverticulosis/[facility] COLONOSCOPY, DIAGNOSTIC (RECTUM) 07/17/2023 moderate diverticulosis/hemorrhoids/likely malignant tumor/biopsies show adenomatous, invasive adenocarcinoma/COLONOSCOPY FLEXIBLE PROXIMAL DIAGNOSTIC performed by Chet Bhagat DO at ENDOSCOPY [facility] EGD, FLEXIBLE, DIAGNOSTIC 02/10/2019 acid reflux, hiatal hernia, repeat 2 mo / [facility] EGD, FLEXIBLE, DIAGNOSTIC 05/11/2019 acid reflux, hiatal hernia / [facility] EGD, FLEXIBLE, DIAGNOSTIC 07/17/2023 mild schatzki ring/paraesophageal hernia/ESOPHAGOGASTRODUODENOSCOPY (EGD), FLEXIBLE, TRANSORAL, DIAGNOSTIC performed by Chet Bhagat DO at ENDOSCOPY [facility] EGD, FLEXIBLE, DIAGNOSTIC N/A 11/28/2023 ESOPHAGOGASTRODUODENOSCOPY (EGD), FLEXIBLE, TRANSORAL, DIAGNOSTIC performed by Christophe Henriquez MD at OR [facility] LAPAROSCOPIC COLECTOMY PARTIAL WITH ANASTOMOSIS N/A 08/05/2023 LAPAROSCOPIC PARTIAL COLECTOMY WITH ANASTOMOSIS performed by Best Shelley MD at OR [facility] MISCELLANEOUS ORDER ([facility] ONLY) 10/08/2019 skin lesion removed left forehead PARAESOPHAGEAL HERNIA REPAIR, LAP W/ MESH N/A 11/28/2023 LAPAROSCOPIC PARAESOPHAGEAL HERNIA REPAIR W/MESH performed by Christophe Henriquez MD at OR [facility] PARAESOPHAGEAL HERNIA REPAIR, LAP W/O MESH N/A 11/28/2023 LAPAROSCOPIC PARAESOPHAGEAL HERNIA REPAIR WO/ MESH performed by Christophe Henriquez MD at OR [facility] REMOVE CATARACT, INSERT LENS PROSTH 2018 bilateral Family History Problem Relation Name Age of Onset Cancer Mother melanoma Neurological Disorder Father Parkinson's Other (Other) Father AAA No Known Problems Sister Other (Other) Grandfather (Paternal) AAA Melanoma Aunt (Maternal) Melanoma Uncle (Maternal) Glaucoma Uncle (Paternal) Social History Socioeconomic History Marital status: Tobacco Use Smoking status: Former Current packs/day: 0.00 Average packs/day: 1 pack/day for 20.0 years (20.0 ttl pk-yrs) Types: Cigarettes Start date: 09/12/1962 Quit date: 09/12/1982 Years since quittin.3 Passive exposure: Past Smokeless tobacco: Never Tobacco comments: quit summer Vaping Use Vaping status: Never Used Substance and Sexual Activity Alcohol use: Yes Comment: one drink several days a week Drug use: Never Sexual activity: Yes Partners: Female Social Determinants of Health Financial Resource Strain: Low Risk (12/27/2022) Financial Resource Strain Do you have any trouble paying for your medications, or do you think you might in the future? (Adult - for ages 18 years and over): No Food Insecurity: No Food Insecurity (11/28/2023) Food Insecurity Do you need food for this week? (Adult - for ages 18 years and over): No Transportation Needs: No Transportation Needs (11/28/2023) Transportation Needs Do you have trouble getting a ride to medical visits or work? (Adult - for ages 18 years and over):Never True Has lack of transportation kept you from medical appointments, meetings, work, or from getting things needed for daily living? Check all that apply. (Adult - for ages 18 years and over): No Social Connections Housing Stability: Low Risk (11/28/2023) Housing Stability Do you think you are at risk of becoming homeless? (Adult - for ages 18 years and over): No Are you homeless or worried that you might be in the future? (Adult - for ages 18 years and over): No Family History Problem Relation Name Age of Onset Cancer Mother melanoma Neurological Disorder Father Parkinson's Other (Other) Father AAA No Known Problems Sister Other (Other) Grandfather (Paternal) AAA Melanoma Aunt (Maternal) Melanoma Uncle (Maternal) Glaucoma Uncle (Paternal) REVIEW OF SYSTEMS: All 10 systems reviewed and negative except mentioned in HPI OBJECTIVE: BP 120/70 | Pulse 92 | Temp 36.9 C (98.4 F) | Resp 16 | Ht 1.651 m (5' 5") | Wt 88.8 kg (195 lb11.2 oz) | BMI 32.57 kg/m | BSA 2.02 m PHYSICAL EXAM: General: alert, healthy, and no distress Head: Normocephalic, No masses, lesions, tenderness or abnormalities Oropharynx: no exudate, no erythema, lips, buccal mucosa, and tongue normal, and mucous membranes are moist Neck: supple, no adenopathy, no bruits, thyroid normal size, non-tender, without nodularity Heart: no murmur, no gallops, and irregularly irregular Lungs: chest symmetric with normal AP diameter, no chest deformities noted, no chest wall tenderness, lungs clear to auscultation Abdomen: abdomen soft, non-tender, normal bowel sounds, and no masses or organomegaly Extremities: less than 2 second capillary refill, no joint deformities, effusion, or inflammation ASSESSMENT AND PLAN Atrial fibrillation, unspecified type (HCC) (Primary) - EKG; Future; Expected date: 01/15/2024 - DISCH MED RECON CUR MED LIS - EKG - Metoprolol Succinate ER 100 MG Oral Tablet Extended Release 24 Hour (toPROL XL); Take 1 Tablet bymouth in the morning and 1 Tablet before bedtime. 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 -decreased in the setting of increase metoprolol to avoid hypotension Bronchiolitis Complete Z-Juan Francisco course Follow-up: Return if symptoms worsen or fail to improve. | Check-out note: [place] on 02/03 for BP check Treatment and plan was discussed with patient and was given opportunity to ask questions which wereanswered appropriately. Patient verbalizing understanding. This note was prepared with the help of fluency and if there is any mis-spelled words , sentences or something which doesn't represent the content of the subject that could be technical error and please refer to the author for clarification. Lana Eden MD 2:57 PM 01/15/2024 documented in this encounter Procedure Notes * Theo Dunne DO - 01/15/2024 3:25 PM EDTAssociated Order(s): EKG REASON FOR STUDY: A.fib;A.fib CONCLUSIONS: Atrial fibrillation with premature ventricular or aberrantly conducted complexes Cannot rule out Anterior infarct , age undetermined Abnormal ECG When compared with ECG of 26-Nov-2023 11:44, Atrial fibrillation has replaced Sinus rhythm T wave inversion now evident in Anterior leads Ventricular Rate: 99 Atrial Rate: 97 QRS Duration: 62 QT/QTc: 350/449 ms P-R-T Mather: 0 : 41 : -32 degrees documented in this encounter Nursing Notes * Alicja Yanez LPN - 01/15/2024 2:28 PM EDT The patient has been properly identified by confirmation of name and date of . Chief Complaint Patient presents with Hospital Follow-Up Was told to see cardio in 3-5 days, can't get appointment until April documented in this encounter Plan of Treatment Upcoming Encounters Date Type Department Care Team (Late st Contact Info) Description 02/04/2024 2:00 PM EDT Laboratory Laboratory [facility] [place] [address] [place] [address] [place], Lab [facility] [address] [facility] [place] [address] 02/04/2024 2:30 PM EDT Nurse Only Ancillary [facility] [place] [address] [place] [address] [place], Nurse Fam Prac [facility] [address] [facility] [place] [address] 02/24/2024 11:40 AM EST Office Visit Rheumatology [place] [id number] [place] [address] Niraj Shukla MD [facility] [address] 02/24/2024 2:30 PM EST Office Visit Cardiology, [facility] [address] [facility] [place] [address] Billy Anthony PA-C [address] [facility] [place] [address] 04/22/2024 1:40 PM EST Office Visit General Internal Medicine [facility] [place] [address] [place] [address] Lana Eden MD [address] [facility] [place] [address] 05/10/2024 2:15 PM EST Office Visit Hematology/Oncology [facility] [place] [address] [place] [id number] Pepito Chiang MD [address] [place] [address] 05/19/2024 3:00 PM EST Telemedicine [facility] [address], [place] [phone] Best Shelley MD [address], [place] [phone] 06/03/2024 2:00 PM EST Office Visit General Surgery, [facility] [address] [place] [address] Christophe Henriquez MD [address], [place] [phone] 09/02/2024 2:00 PM EDT Office Visit Cardiology, [facility] [address] [facility] [place] [address] Billy Anthony PA-C [address] [place] [address] Scheduled Procedures Name Priority Associated Diagnoses Date/Ti [...] D LEVEL ONCE IN A LIFETIME-USE SMARTSET# [id number] Completed 02/10/2023, 11/20/2021, 05/08/2021 Hepatitis B Vaccine [...] Procedure Name Priority Date/Time Associated Diagnosis Comments DE ECG ROUTINE ECG W/LEAST 12 LDS TRCG ONLY W/O I&R Routine 01/15/2024 3:25 PM EDT Atrial fibrillation, unspecified type (HCC) documented in this encounter Results * EKG (01/15/2024 3:25 PM EDT) 01/15/2024 3:25 PM EDT Narrative Procedure Note Theo Dunne DO - 01/15/2024 3:25 PM EDT REASON FOR STUDY: A.fib;A.fib CONCLUSIONS: Atrial fibrillation with premature ventricular or aberrantly conductedcomplexes Cannot rule out Anterior infarct , age undetermined Abnormal ECG When compared with ECG of 26-Nov-2023 11:44, Atrial fibrillation has replaced Sinus rhythm T wave inversion now evident in Anterior leads Ventricular Rate: 99 Atrial Rate: 97 QRS Duration: 62 QT/QTc: 350/449 ms P-R-T Mather: 0 : 41 : -32 degrees Lana Eden MD EKG [facility] CARDIOLOGY documented in this encounter Visit Diagnoses Diagnosis Atrial fibrillation, unspecified type ([facility] Primary Hospital discharge follow-up Other follow-up examination Type 2 diabetes mellitus with hemoglobin A1c goal of less than 7.0% (HCC) SVT (supraventricular tachycardia) ([facility]) Other specified cardiac dysrhythmias Steroid-induced osteoporosis Other osteoporosis Sensorineural hearing loss, bilateral S/P repair of paraesophageal hernia Other postprocedural status Multiple subsegmental pulmonary emboli without acute cor pulmonale (HCC) PMR (polymyalgia rheumatica) ([facility]) Polymyalgia rheumatica 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 Encounter for long-term (current) use of steroids Iron deficiency anemia, unspecified iron deficiency anemia type Hyperlipidemia with target LDL less than 100 Other and unspecified hyperlipidemia Allergic rhinitis, unspecified seasonality, unspecified trigger HTN, GOAL BELOW 140/90 Unspecified essential hypertension Bronchiolitis Acute bronchiolitis due to other infectious organisms documented in this encounter Advance Directives Documents on File Type Date Recorded 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 Yes, not currently available * Full Code [...] Advance Directives occurred with: Patient Care Teams Career Services Manager Relationship Specialty Start Date End Date Lana Eden MD [address] [facility] [place] [address] PCP - General Internal Medicine 12/04/20 documented as of this encounter
--- OUTSIDE RECORDS SUMMARY | 2024-02-20 11:44 | External Medical Summary | Summary of Care ---
Author Name Unknown Organization [facility] Address [address] [place] [address] Phone [phone] Care Team Providers Care Tool And Gauge Inspector Name Role Phone Lana Eden MD Primary Care Provider [phone] Reason for Visit * Reason Onset Date Comments Medical Records Request 01/12/2024 Encounter Details Date Type Department Care Team (Late st Contact Info) Description 01/12/2024 Telephone General Internal Medicine [facility] [address] [place] [address] Lana Eden MD 200 [place] [address] Medical Records Request Allergies Active Allergy Reactions Criticality Noted Date [...] as of this encounter (statuses as of 01/15/2024) Medications Medication Sig Dispensed Refills Start Date [...] rhinitis, unspecified seasonality, unspecified trigger Administer 1 [place] into nostril in the morning and 1 [place] before bedtime. 90 mL 3 04/03/2023 Active [...] BEFORE BEDTIME 180 Tablet 3 05/23/2023 Active Irbesartan 300 MG Oral Tablet (Avapro) TAKE 1 TABLET IN THE MORNING 90 Tablet 3 06/02/2023 Active Additional Information Patient taking differently: 300 mg Oral HS, Reported on 07/15/2023 Metoprolol Succinate ER 25 MG Oral Tablet Extended Release 24 Hour (toPROL XL) Take 2 Tablets by mouth in the morning. 180 Tablet 2 07/07/2023 Active CoQ-10 30 MG Oral Capsule Take by mouth. Active NAC 500 MG Oral Capsule (Acetylcysteine) Take by mouth. Acti ve dilTIAZem HCl ER 300 MG Oral Tablet Extended Release 24 Hour Take 300 mg by mouth every evening. 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 Eden. * Telephone Encounter - Sirisha Lee OSA - 01/12/2024 10:37 AM EDT Caller requesting the following information to be faxed: Name/Company of caller: [employer] Information requested to be faxed: medical records Fax number: [phone] Attention to Name/Company: Any additional information?: admitted documented in this encounter Plan of Treatment Upcoming Encounters Date Type Department Care Team (Late st Contact Info) Description 01/15/2024 2:20 PM EDT Office Visit General Internal Medicine [facility] 200 [facility] [place], [place] [address] Lana dEen MD 200 [facility] [place], [place] [address] 02/04/2024 2:00 PM EDT Laboratory Laboratory [facility] [address] [place] [phone] [facility] [address] [place], [place] [address] 02/24/2024 11:40 AM EST Office Visit Rheumatology [place] [address] [facility] [place], [place] [address] Niraj Shukla MD [facility] [employer] [place], [place] [address] 02/24/2024 2:30 PM EST Office Visit Cardiology, [facility] 132 [facility] [place] [address] Billy Anthony PA-C [address] [facility] [place] [address] 04/22/2024 1:40 PM EST Office Visit General Internal Medicine [facility] [address] [place] [address] Lana Eden MD [address] [place] [address] 05/10/2024 2:15 PM EST Office Visit Hematology/Oncology [facility] [address] [place] [phone] Pepito Chiang MD [address] [place] [address] 05/19/2024 3:00 PM EST [facility] [address] [place] [address] Best Shelley MD [address] [place] [address] 06/03/2024 2:00 PM EST Office Visit General Surgery, [facility] 132 [facility] [place] [address] Christophe Henriquez MD [address] [place] [address] 09/02/2024 2:00 PM EDT Office Visit Cardiology, [facility] 132 [facility] [place] [address] Billy Anthony PA-C [address] [place] [address] Scheduled Procedures Name Priority Associated Diagnoses Date/Ti me COLONOSCOPY FLEXIBLE PROXIMA L DIAGNOSTIC Recall History of colonic polyps Health Maintenance Due Date Last Done Comments COVID-19 Vaccine ( season) 2023 02/25/2023, 01/11/2022, 08/25/2021, Additional history exists Adult Wellness Visit 12/28/2023 12/27/2022, 10/12/19 21 Depression Screening 12/28/2023 12/27/2022 DTap/Tdap Vaccines (3 - Td or Tdap) 12/30/2023 12/29/2013, 06/12/2005 *NEPHROLOGY 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 RESISTANT HTN 01/08/2024 HbA1c 05/09/2024 11/07/2023, 09/13, 07/28/2023, Additional history [...] D LEVEL ONCE IN A LIFETIME-USE SMARTSET# [id number] Completed 02/10/2023, 11/20/2021, 05/08/2021 Hepatitis B Vaccine [...] Documents on File Type Date Recorded 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 Yes, not currently available * Full [...] Advance Directives occurred with: Patient Care Teams Tool And Gauge Inspector Relationship Specialty Start Date End Date Lana Eden MD 200 [place] [address] PCP - General Internal Medicine 12/04/20 documented as of this encounter
--- OUTSIDE RECORDS SUMMARY | 2024-02-20 11:44 | External Medical Summary | Summary of Care ---
Author Name Unknown Organization [facility] Address [address] [place] [address] Phone [phone] Care Team Providers Care Cap Blocker Name Role Phone Lana Eden MD Primary Care Provider [phone] Reason for Visit * Reason Onset Date Comments Advice 01/13/2024 Raj Encounter Details Date Type Department Care Team (Late st Contact Info) Description 01/13/2024 Telephone Cardiology, [facility] [address] [place] [address] Billy Anthony PA-C [address] [facility] [place] [address] Advice (Raj) Allergies Active Allergy Reactions Criticality [...] as of this encounter (statuses as of 01/22/2024) Medications Medication Sig Dispensed Refills Start Date [...] rhinitis, unspecified seasonality, unspecified trigger Administer 1 [place] into nostril in the morning and 1 [place] before bedtime. 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 07/30 Steroid-induced [...] as of this encounter (statuses as of 01/22/2024) Resolved Problems Problem Noted Date Diagnosed Date [...] as of this encounter (statuses as of 01/22/2024) Immunizations Name Administration Dates Next Due COVID-19 [...] encounter Miscellaneous Notes * Telephone Encounter - Rafaela Garay CMA [...] to patient: self Phone/Fax to return call: [phone] Reason for call(brief): discharge appt Pharmacy: Provider Name:Raj Detailed message to office:pt was recently discharged and told to schedule with gambling monitor, firstavail appt with any provider was in [...] Description 02/04/2024 2:00 PM EDT Laboratory Laboratory [facility] 200 [facility] [place], [place] [phone] [facility] 200 [facility] [place], [place] [address] 02/04/2024 2:30 PM EDT Nurse Only Ancillary [facility] [place] [address] [place] [address] [place], Nurse Fam Prac [facility] 200 [facility] [place], [place] [address] 02/24/2024 11:40 AM EST Office Visit Rheumatology [facility] [address] [place], [place] [address] Niraj Shukla MD [address] [place], [place] [address] 02/24/2024 2:30 PM EST Office Visit Cardiology, [facility] 132 [facility] [place] [address] Billy Anthony PA-C [address] [place] [address] 04/22/2024 1:40 PM EST Office Visit General Internal Medicine [facility] [address] [place] [address] Lana Eden MD [address] [place] [address] 05/10/2024 2:15 PM EST Office Visit Hematology/Oncology [facility] [address] [place] [address] Pepiot Chiang MD 200 [facility] [place] [address] 05/19/2024 3:00 PM EST Telemedicine General Surgery, [place] [address] [place], [place] [address] Best Shelley MD [address] [place] [address] 06/03/2024 2:00 PM EST Office Visit General Surgery, [facility] 132 [employer] [address] Christophe Henriquez MD [address] [place], [place] [address] 09/02/2024 2:00 PM EDT Office Visit Cardiology, [facility] 132 [facility] [place] [address] Billy Anthony PA-C [address] [place] [address] Scheduled Procedures Name Priority Associated Diagnoses Date/Ti [...] D LEVEL ONCE IN A LIFETIME-USE SMARTSET# [id number] Completed 02/10/2023, 11/20/2021, 05/08/2021 Hepatitis B Vaccine [...] Documents on File Type Date Recorded Patient Recruiting Administrator Expl anation Advance Directives and Living Will [...] the patient have Health Care Power of Health Counselor? Yes, not currently available * Full Code [...] Advance Directives occurred with: Patient Care Teams Cap Blocker Relationship Specialty Start Date End Date Lana Eden MD 200 [facility] [place] [address] PCP - General Internal Medicine 12/04/20 documented as of this encounter
--- OUTSIDE RECORDS SUMMARY | 2024-02-20 11:44 | External Medical Summary | Summary of Care ---
Author Name Unknown Organization [facility] Address [address] [place] [address] Phone [phone] Care Team Providers Care Medical Surgery Nurse Name Role Phone Lana Eden MD Primary Care Provider [phone] Reason for Visit * Reason Onset Date Comments Follow Up 01/02/2024 Encounter Details Date Type Department Care Team (Late st Contact Info) Description 01/02/2024 Telephone Pulmonary Medicine, [facility] [address] [facility] [place] [address] Bia De La Cruz, [address] [facility] [address] Follow Up Allergies Active Allergy Reactions Criticality Noted Date [...] as of this encounter (statuses as of 01/14/2024) Medications Medication Sig Dispensed Refills Start Date [...] rhinitis, unspecified seasonality, unspecified trigger Administer 1 [place] into nostril in the morning and 1 [place] before bedtime. 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 07/30 Steroid-induced [...] as of this encounter (statuses as of 01/14/2024) Resolved Problems Problem Noted Date Diagnosed Date [...] as of this encounter (statuses as of 01/14/2024) Immunizations Name Administration Dates Next Due COVID-19 [...] encounter Miscellaneous Notes * Telephone Encounter - Keely Abdul, FOREST - 01/02/2024 2:30 PM EDT Faxed demographics, orders, and progress notes to [facility] Waiting on appt date documented in this encounter Plan of Treatment Upcoming Encounters Date Type Department Care Team (Late st Contact Info) Description 01/15/2024 2:20 PM EDT Office Visit General Internal Medicine [facility] [place] [address] [place] [address] Lana Eden MD [address] [place] [address] [address] 02/04/2024 2:00 PM EDT Laboratory [facility] [place] [address] [place] [address] [phone] [facility] [place] [address] [place] [address] [address] 02/24/2024 11:40 AM EST Office Visit Rheumatology [place] [address] [place], [place] [address] Niraj Shukla [facility] [place] [address] 02/24/2024 2:30 PM EST Office Visit [facility]iology, [facility] [place] [address] Billy Anthony PA-C [address] [facility] [address] 04/22/2024 1:40 PM EST Office Visit General Internal Medicine [facility] [place] [address] [place] [address] [address] Lana Eden MD [address] [place] [address] [address] 05/10/2024 2:15 PM EST Office Visit Hematology/Oncology [facility] [place] [address] [address] [phone] Pepito Chiang MD [address] [place], [place] [address] 05/19/2024 3:00 PM EST Telemedicine [facility] [address] [place], [place] [address] Best Shelley MD [address] [place] [address] 06/03/2024 2:00 PM EST Office Visit General Surgery, [facility] [address] [place] [address] Christophe Henriquez MD [address] [place], [place] [address] 09/02/2024 2:00 PM EDT Office Visit Cardiology, [facility] [address] [address] Billy Anthony PA-C [address] [place] [address] Scheduled Procedures Name Priority Associated Diagnoses Date/Ti [...] D LEVEL ONCE IN A LIFETIME-USE SMARTSET# [id number] Completed 02/10/2023, 11/20/2021, 05/08/2021 Hepatitis B Vaccine [...] Documents on File Type Date Recorded Patient Clinical Technician Expl anation Advance Directives and Living [...] the patient have Health Care Power of Telemetry Rn? Yes, not currently available * Full Code [...] Advance Directives occurred with: Patient Care Teams Medical Surgery Nurse Relationship Specialty Start Date End Date Lana Eden MD 200 [place] [address] PCP - General Internal Medicine 12/04/20 documented as of this encounter
--- OUTSIDE RECORDS SUMMARY | 2024-02-20 11:44 | External Medical Summary | Summary of Care ---
Author Name Unknown Organization [facility] Address [address] [place] [address] Phone [phone] Care Team Providers Care Utility Porter Name Role Phone Lana Eden MD Primary Care Provider [phone] Reason for Visit * Reason Onset Date Comments Medical Records Request 01/12/2024 Encounter Details Date Type Department Care Team (Late st Contact Info) Description 01/12/2024 Telephone General Internal Medicine [facility] [address] [place] [address] Lana Eden MD 200 [place] [address] Medical Records Request Allergies Active Allergy Reactions [...] rhinitis, unspecified seasonality, unspecified trigger Administer 1 [place] into nostril in the morning and 1 [place] before bedtime. 90 mL 3 04/03/2023 Active [...] encounter Miscellaneous Notes * Telephone Encounter - Aundrea Olson RN - 01/14/2024 7:28 PM EDT Has appt 01/[address] Eden. * Telephone Encounter - Sirisha Lee OSA - 01/12/2024 10:37 AM EDT Caller requesting the following information to be faxed: Name/Company of caller: [employer] Information requested to be faxed: medical records Fax number: [phone] Attention to Name/Company: Any additional information?: admitted documented in this encounter Plan of Treatment Upcoming Encounters Date Type Department Care Team (Late st Contact Info) Description 01/15/2024 2:20 PM EDT Office Visit General Internal Medicine [facility] [address] [place] [address] Lana Eden MD 200 [facility] [place] [address] 02/04/2024 2:00 PM EDT Laboratory Laboratory [facility] 200 [facility] [place] [phone] [facility] 200 [facility] [place] [address] 02/24/2024 11:40 AM EST Office Visit Rheumatology [facility] [address] [employer] [address] Niraj Shukla MD [address] [place] [address] 02/24/2024 2:30 PM EST Office Visit Cardiology, [facility] 132 [facility] [place] [address] RajBilly sultana PA-C [facility] [place] [address] 04/22/2024 1:40 PM EST Office Visit General Internal Medicine [facility] [address] [place] [address] Lana Eden MD 200 [facility] [place] [address] 05/10/2024 2:15 PM EST Office Visit Hematology/Oncology [facility] 200 [facility] [place], [place] [phone] Pepito Chiang MD 200 [place] [address] 05/19/2024 3:00 PM EST Telemedicine General Surgery, [place] [address] [place], [place] [address] Best Shelley MD [address] [place] [address] 06/03/2024 2:00 PM EST Office Visit General Surgery, [facility] 132 [place] [address] Christophe Henriquez MD [address] [place] [address] 09/02/2024 2:00 PM EDT Office Visit Cardiology, [facility] 132 [facility] [place] [address] Billy Anthony PA-C [facility] [place] [address] Scheduled Procedures Name Priority Associated Diagnoses Date/Ti [...] D LEVEL ONCE IN A LIFETIME-USE SMARTSET# [id number] Completed 02/10/2023, 11/20/2021, 05/08/2021 Hepatitis B Vaccine [...] Documents on File Type Date Recorded 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 Yes, not currently available * Full Code [...] Advance Directives occurred with: Patient Care Teams Utility Porter Relationship Specialty Start Date End Date Lana Eden MD 200 [place] [address] PCP - General Internal Medicine 12/04/20 documented as of this encounter
--- OUTSIDE RECORDS SUMMARY | 2024-02-20 11:45 | External Medical Summary | Summary of Care ---
Author Name Unknown Organization [facility] Address [address] [place] [address] Phone [phone] Care Team Providers Care Home Sales Consultant Name Role Phone Lana Eden MD Primary Care Provider [phone] Encounter Details Date Type Department Care Team (Late st Contact Info) Description 12/30/2023 Orders Only Outcomes Research Department [address] [place], [place] [phone] Ana Fairchild CHRA [employer] Research Other*[id number] Allergies Active Allergy Reactions Criticality Noted Date [...] as of this encounter (statuses as of 12/30/2023) Medications Medication Sig Dispensed Refills Start Date [...] Active Azelastine HCl 0.1 % Nasal Solution (Astelin)Indicatio ns:Allergic rhinitis, unspecified seasonality, unspecified trigger Administer 1 [place] into nostril in the morning and 1 [place] before bedtime. 90 mL 3 04/03/2023 Active Furosemide 20 MG Oral Tablet (Lasix)Indications :HTN, goal below 140/90,Edema, unspecified type Take 1 Tablet by mouth in the morning. 90 Tablet 3 04/24/2023 Active Vitamin B-12 1000 MCG Oral Tablet (Cyanocobalamin) Take 1 Tablet by mouth in the morning. Active Atorvastatin Calcium 20 MG Oral Tablet (Lipitor)Indicatio ns:Dyslipidemia, goal LDL below 160 TAKE 1 TABLET [...] Chloride ER 10 MEQ Oral Tablet Extended ReleaseIndications :Hypokalemia Take 2 Tablets by mouth daily. 180 Tablet 1 11/17/2023 Active predniSONE 5 MG Oral Tablet (Deltasone)Indicat ions:Polymyalgia rheumatica (HCC) Take 1 Tablet by mouth in the morning. 11/27/2023 Active Metoclopramide HCl 10 MG Oral Tablet (Reglan) Take 1 Tablet by mouth in the morning and 1 Tablet at noon and 1 Tablet in the evening and 1 Tablet before bedtime. 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 [facility] current use of systemic steroids 07/30 Steroid-induced [...] as of this encounter (statuses as of 12/30/2023) Resolved Problems Problem Noted Date Diagnosed Date [...] as of this encounter (statuses as of 12/30/2023) Immunizations Name Administration Dates Next Due COVID-19 [...] 65+ Yrs, IM (FLUAD) 01/10/2021,12/14/2019 Seasonal Influenza Virus Vac cine, Unspecified Formulation 12/19/2021,01/10/2021,12/14/2019,01/10,12/21/2016,01/15/2016,12/28/2015 ,12/28/2014,12/15/2013,12/28/2012,12/13,02/07/2011,01/14/2010, 9,01/19/2008,02/02/2007 Seasonal Influenza, High Dos e, Trivalent, PF, IM (Fluzone HD) 12/12/2023,12/21/2016 Seasonal Influenza, PF, 6 M & above, IM , (FluLaval or Fluzone) 01/07/2018 Seasonal Influenza, Quadriva lent Hd (Fluzone Hd) 12/27/2022 Seasonal Influenza, Trivalen t, (IIV3), with Preserv, (Fluzone) 12/28/2015,12/28/2014,12/15/2013,12/28,12/31/2011,02/07/2011,01/14/2010 ,12/22/2008,01/19/2008,02/02/2007 Seasonal Influenza, Trivalen t, Adjuvanted, 65+ YRS, [...] Care Team (Late st Contact Info) Description 01/06/2024 3:00 PM EDT Office Visit Hematology/Oncology [facility] [address] [place] [address] Pepito Chiang MD [address] [place] [address] 02/04/2024 2:00 PM EDT Laboratory Laboratory [facility] [address] [place] [phone] [facility] 200 [facility] [place] [address] 02/24/2024 11:40 AM EST Office Visit Rheumatology [place] [address] [employer] [place], [place] [address] Niraj Shukla MD [address] [place] [address] 04/22/2024 1:40 PM EST Office Visit General Internal Medicine [facility] [address] [place], [place] [address] Lana Eden MD 200 [facility] [place] [place] [address] 05/19/2024 3:00 PM EST Telemedicine General Surgery, [place] [address] [place] [address] Best Shelley MD [address] [place], [place] [address] 06/03/2024 2:00 PM EST Office Visit General Surgery, [facility] 132 [facility] [place] [address] Christophe Henriquez MD [address] [place], [place] [address] 09/02/2024 2:00 PM EDT Office Visit Cardiology, [facility] [address] [place] [address] Billy Anthony PA-C [address] [place] [address] Scheduled Orders Name Type Priority Associated Diagnoses Orde r Schedule MYCODE SUBSEQUENT ADULT Lab Routine [employer] Research Other*[id number] Every 6 Months for 2 Occurrences starting 12/30/2023 until 01/18/2025 Scheduled Procedures Name Priority Associated Diagnoses Date/Ti [...] D LEVEL ONCE IN A LIFETIME-USE SMARTSET# [id number] Completed 02/10/2023, 11/20/2021, 05/08/2021 Hepatitis B Vaccine [...] as of this encounter Visit Diagnoses Diagnosis [employer] Other*[id number] documented in this encounter Advance Directives Documents on File Type Date Recorded Patient Dental Assistant Expl anation Advance Directives and Living Will [...] the patient have Health Care Power of Reel Stripper? Yes, not currently available * Full Code [...] Advance Directives occurred with: Patient Care Teams Home Sales Consultant Relationship Specialty Start Date End Date Lana Eden MD [address] [place] [address] PCP - General Internal Medicine 12/04/20 documented as of this encounter
--- OUTSIDE RECORDS SUMMARY | 2024-02-20 11:45 | External Medical Summary | Summary of Care ---
Author Name Unknown Organization [facility] Address [address] [place] [address] Phone [phone] Care Team Providers Care Spiral Tube Winder Name Role Phone Lana Eden MD Primary Care Provider [phone] Encounter Details Date Type Department Care Team (Late st Contact Info) Description 01/12/2024 Result Scan Unspecified Department <No scans attached> Allergies Active Allergy Reactions Criticality Noted Date [...] as of this encounter (statuses as of 01/13/2024) Medications Medication Sig Dispensed Refills Start Date [...] rhinitis, unspecified seasonality, unspecified trigger Administer 1 [place] into nostril in the morning and 1 [place] before bedtime. 90 mL 3 04/03/2023 Active [...] as of this encounter (statuses as of 01/13/2024) Active Problems Problem Noted Date Diagnosed Date [...] as of this encounter (statuses as of 01/13/2024) Resolved Problems Problem Noted Date Diagnosed Date [...] as of this encounter (statuses as of 01/13/2024) Immunizations Name Administration Dates Next Due COVID-19 [...] Description 02/04/2024 2:00 PM EDT Laboratory Laboratory State Dacia Padilla [address] [place], [place] [address] Keena Armendariz [address] [place] [address] 02/24/2024 11:40 AM EST Office Visit Rheumatology [place] [phone] [facility] [place], [place] [address] Niraj Shukla MD [address] [facility] [place] [address] 04/22/2024 1:40 PM EST Office Visit General Internal Medicine [facility] 200 [facility] [place] [address] Lana Eden MD 200 [facility] [place] [address] 05/10/2024 2:15 PM EST Office Visit Hematology/Oncology [facility] 200 [facility] [place] [phone] Pepito Chiang MD 200 [facility] [place] [address] 05/19/2024 3:00 PM EST Telemedicine General Surgery, [place] [address] [place], [place] [phone] Best Shelley MD [address] [place] [address] 06/03/2024 2:00 PM EST Office Visit [facility] [address] Christophe Henriquez MD [address] [place], [place] [phone] 09/02/2024 2:00 PM EDT Office Visit Cardiology, [facility] 132 [facility] [place] [id number] Billy Anthony PA-C 132 [facility] [place] [id number] Scheduled Procedures Name Priority Associated Diagnoses Date/Ti [...] D LEVEL ONCE IN A LIFETIME-USE SMARTSET# [id number] Completed 02/10/2023, 11/20/2021, 05/08/2021 Hepatitis B Vaccine [...] Procedure Name Priority Date/Time Associated Diagnosis Comments ECHOCARDIOLOGY SCANNED RESULT 01/12/2024 documented in this encounter Results * ECHOCARDIOLOGY SCANNED RESULT (01/12/2024) 01/12/2024 No Physician Data Unknown ECHOCARDIOLOGY documented in this encounter Advance Directives Documents on File Type Date Recorded 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 Yes, not currently available * Full Code [...] Advance Directives occurred with: Patient Care Teams Spiral Tube Winder Relationship Specialty Start Date End Date Lana Eden MD 200 [facility] [place] [address] PCP - General Internal Medicine 12/04/20 documented as of this encounter
--- OUTSIDE RECORDS SUMMARY | 2024-02-20 11:45 | External Medical Summary | Summary of Care ---
Author Name Unknown Organization [facility] Address [address] [place] [address] Phone [phone] Care Team Providers Care Board Of Education Secretary Name Role Phone Lana Eden MD Primary Care Provider [phone] Encounter Details Date Type Department Care Team (Late st Contact Info) Description 01/13/2024 Orders Only General Internal Medicine [facility] [address] [place] [address] Lana Eden MD [address] [place] [address] Allergies Active Allergy Reactions Criticality Noted Date [...] rhinitis, unspecified seasonality, unspecified trigger Administer 1 Trimble into nostril in the morning and 1 Trimble before bedtime. 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 residential current use of systemic steroids 07/30 Steroid-induced [...] Description 02/04/2024 2:00 PM EDT Laboratory Laboratory [facility] [address] [place] [phone] [facility] [place] [address] 02/24/2024 11:40 AM EST Office Visit Rheumatology [place] [address] [facility] [place], [place] [address] Niraj Shukla MD [address] [facility] [place], [place] [address] 04/22/2024 1:40 PM EST Office Visit General Internal Medicine [facility] [address] [place], [place] [address] Lana Eden MD 200 [facility] [place] [address] 05/10/2024 2:15 PM EST Office Visit Hematology/Oncology [facility] [address] [place], [place] [phone] Pepito Chiang MD 200 [facility] [place], [place] [address] 05/19/2024 3:00 PM EST Telemedicine General Surgery, [place] [address] [place] [address] Best Shelley MD [address] [place], [place] [phone] 06/03/2024 2:00 PM EST Office Visit General Surgery, [facility] [address] Christophe Henriquez MD [address] [place], [place] [phone] 09/02/2024 2:00 PM EDT Office Visit Cardiology, [facility] 132 [place] [address] Billy Anthony PA-C [address] [place] [address] Scheduled Procedures Name Priority Associated Diagnoses Date/Ti [...] D LEVEL ONCE IN A LIFETIME-USE SMARTSET# [id number] Completed 02/10/2023, 11/20/2021, 05/08/2021 Hepatitis B Vaccine [...] Procedure Name Priority Date/Time Associated Diagnosis Comments XR CHEST 2 VIEWS Routine 01/11/2024 documented in this encounter Results * XR CHEST 2 VIEWS (01/11/2024) Anatomical Region Laterality Modality Chest Other 01/11/2024 History Per Patient RADIOLOGY (RAD GENER AL) documented in this encounter Advance Directives Documents on File Type Date Recorded Patient Rn School 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 Yes, not currently available * Full Code [...] Advance Directives occurred with: Patient Care Teams Board Of Education Secretary Relationship Specialty Start Date End Date Lana Eden MD [address] [place] [address] PCP - General Internal Medicine 12/04/20 documented as of this encounter
--- OUTSIDE RECORDS SUMMARY | 2024-02-20 11:45 | External Medical Summary | Summary of Care ---
Author Name Unknown Organization [facility] Address [address] [place] [address] Phone [phone] Care Team Providers Care Unclaimed Property Manager Name Role Phone Lana Eden MD Primary Care Provider [phone] Reason for Visit * Reason Comments Follow Up 3 month follow up * Evaluate & Treat - Unlimited Visits (Within 10 days (routine)) - Pending Review Specialty Diagnoses / Procedures Referred By Maral lawson Referred To Contact Hematology/Oncology / Hematology Oncology Diagnoses Post-operative [facility] Yazmin Gomez PA-C [address] [place] [address] Referral ID Status Reason Start Date Expiration Date Visits Requested Visits Authorized [id number] Pending Review Specialty Services Required 08/20/[phone] Encounter Details Date Type Department Care Team (Late st Contact Info) Description 01/06/2024 3:00 PM EDT Office Visit Hematology/Oncology [facility] [place] [address] [place] [address] Pepito Chiang MD [address] [place] [address] Malignant neoplasm of splenic flexure (HCC)* Allergies Active Allergy Reactions Criticality Noted [...] as of this encounter (statuses as of 01/06/2024) Medications Medication Sig Dispensed Refills Start Date [...] rhinitis, unspecified seasonality, unspecified trigger Administer 1 [place] into nostril in the morning and 1 [place] before bedtime. 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 systemic steroids 07/30 Steroid-induced [...] as of this encounter (statuses as of 01/06/2024) Resolved Problems Problem Noted Date Diagnosed Date [...] as of this encounter (statuses as of 01/06/2024) Immunizations Name Administration Dates Next Due COVID-19 [...] Passive Smoke Exposure: Past Smokeless Tobacco: Never Tobacco Cessation:Counseling Given: Not Answered Comments:quit summer Alcohol Use Standard Drinks/Week Comments [...] Sign Reading Time Taken Comments Blood Pressure 183/70 01/06/2024 3:09 PM EDT Pulse 91 01/06/2024 3:09 PM EDT Temperature 36.4 C (97.6 F) 01/06/2024 3:09 PM ED T Respiratory Rate - - Oxygen Saturation 92% 01/06/2024 3:09 PM EDT Inhaled Oxygen Concentration - - Weight 89.8 kg (197 lb 14.4 oz) 01/06/2024 3:09 PM EDT Height - - Body Mass Index 32.93 12/12/2023 10:22 AM EDT documented in this encounter Functional Status [...] as of this encounter Progress Notes * Pepito Chiang MD - 01/06/2024 3:30 PM EDT Outpatient Consult Note Data Source: Patient, [facility] record. Data Source: Patient, Epic record. 01/06/2024 3:30 PM Harpreet Oneal [id number] 83 year old Patient Encounter: HEMATOLOGY/ONCOLOGY [facility] Cancer Diagnosis: Colon cancer s/p recent resection, pT3pN0, tage IIA Current Treatment: Observation Previous Treatment: S/P laparoscopic splenic flexure resection Oncologic History : 83-year-old male with a history of multiple medical problem including hypertension, SVT dyslipidemia, diabetes, generalized weakness and fatigue and question of COVID infection referred with the above diagnosis. He was tested positive in his FOBT and had a subsequent colonoscopy which was done on which revealed a frondlike/ villous and fungating nonobstructing large mass Found in descending colon, margins was partially circumferential. Biopsies the mass was positive for intermediate grade invasive adenocarcinoma. CT scan of the abdomen were done on 07/21/2023 which shows 3 cm mass in the splenic flexure of the descending colon and there was 1.2 cm pleural-based nodule in the medial right lung which may inflammatory or neoplastic. CT scan of the chest was negative for any metastatic disease in the chest. 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 Patient has stage pT3 pN0 MX disease. Overall clinically he is feeling better with improvement in the appetite. He denies any headache, dizziness, chest pain palpitation abdominal pain or distention, nausea, vomiting, bleeding, bruising,hematuria, hematochezia. He denies smoking. He drinks once a week. Family history significant for mother, maternal aunt and uncle were diagnosed of melanoma. Interval History: He recently had hernia surgery done and he is feeling better with no more abdominal pain. He deniesany headache, dizziness, chest pain, palpitation, fever, night sweats, weight loss, bleeding, bruising. LABS/IMAGING: Results for orders placed or performed during the hospital encounter of 11/28/23 CBC Result Value Ref Range WBC 12.60 (H) 4.00 - 10.80 K/uL RBC 4.14 4.50 - 5.25 M/uL HGB 12.2 (L) 14.0 - 16.8 g/dL HCT 38.9 (L) 40.0 - 48.4 % MCV 94.0 82.0 - 99.5 fL MCH 29.5 27.0 - 34.0 pg MCHC 31.4 32.0 - 36.0 g/dL RDW 16.2 11.5 - 15.5 % PLT 172 140 - 400 K/uL MPV 11.4 6.6 - 11.1 fL nRBCs 0 <=0 /100 WBCs BASIC METABOLIC PANEL Result Value Ref Range BUN 12 6 - 20 mg/dL CREATININE 0.7 0.6 - 1.2 mg/dL EGFR >90 >=60 mL/min SODIUM 143 135 - 146 mmol/L POTASSIUM 3.4 (L) 3.5 - 5.1 mmol/L CHLORIDE 107 98 - 107 mmol/L CO2 23 22 - 32 mmol/L ANION GAP 13 7 - 15 mmol/L GLUCOSE 112 70 - 120 mg/dL CALCIUM 8.0 (L) 8.4 - 10.2 mg/dL GLUCOSE METER, POINT OF CARE Result Value Ref Range GLUCOSE - POCT 143 (H) 70 - 120 mg/dL GLUCOSE METER, POINT OF CARE Result Value Ref Range GLUCOSE - POCT 236 (H) 70 - 120 mg/dL GLUCOSE METER, POINT OF CARE Result Value Ref Range GLUCOSE - POCT 228 (H) 70 - 120 mg/dL GLUCOSE METER, POINT OF CARE Result Value Ref Range GLUCOSE - POCT 187 (H) 70 - 120 mg/dL GLUCOSE METER, POINT OF CARE Result Value Ref Range GLUCOSE - POCT 165 (H) 70 - 120 mg/dL GLUCOSE METER, POINT OF CARE Result Value Ref Range GLUCOSE - POCT 113 70 - 120 mg/dL REVIEW OF SYSTEMS: General: No Fever, chills, night sweats, or weight loss. HEENT: No change in visual acuity, blurred or double vision. No epistaxis, facial pain, nasal discharge or change in hearing. Denies dysphagia, no muscosal ulceration, or sores noted. Cardiovascular: No chest pain, HEATH, or palpitations Respiratory: No shortness of breath, cough, hemoptysis, or pleuritic chest pain Gastrointestinal: No abdominal pain, nausea, vomiting, diarrhea, rectal pain or bleeding Genitourinary: Denies Hematuria or dysuria Musculoskeletal: No bone pain Psychiatric: No vegetative signs of depression Endocrine: No symptoms of hypothyroidism or hyperglycemia Hematologic: No bleeding or lymph nodes noted As mentioned above, all of the systems were reviewed in full and are unremarkable. Past Medical History: Diagnosis Date Colon polyps 12/11/2011 DM2 (diabetes mellitus, type 2) ([facility]) Dyslipidemia, goal LDL below 160 Gastroesophageal reflux disease without esophagitis 05/10/2015 HTN, goal below 140/90 Hypogonadism in male 10/30/2020 Impacted cerumen 2004 Paraesophageal hiatal hernia 10/09/2023 Sensorineural hearing loss, bilateral 2004 SVT (supraventricular tachycardia) ([facility]) Vertigo 2004 Current Outpatient Medications Medication Sig Dispense Refill [...] 0.1 % Nasal Solution (Astelin) Administer 1 [place] into nostril in the morning and 1 [place] before bedtime. 90 mL 3 Furosemide 20 [...] by mouth at bedtime.) 90 Tablet 3 Metoprolol Succinate ER 25 MG Oral Tablet Extended Release 24 Hour (toPROL XL) Take 2 Tablets by mouth in the morning. 180 Tablet 2 CoQ-10 30 MG Oral Capsule Take by mouth. NAC 500 MG Oral Capsule (Acetylcysteine) Take by mouth. dilTIAZem HCl ER 300 MG Oral Tablet Extended Release 24 Hour Take 300 mg by mouth every evening. Potassium Chloride ER 10 MEQ Oral Tablet Extended Release Take 2 Tablets by mouth daily. 180 Tablet1 predniSONE 5 MG Oral Tablet (Deltasone) Take 1 Tablet by mouth in the morning. Fluzone High-Dose 0.5 ML Suspension Prefilled Syringe Inject into a large muscle. 0.5 mL 0 metFORMIN HCl ER 500 MG Oral Tablet Extended Release 24 Hour (Glucophage XR) TAKE 1 TABLET IN THE MORNING 90 Tablet 3 Metoclopramide HCl 10 MG Oral Tablet (Reglan) Take 1 Tablet by mouth every 8 hours as needed (trouble swallowing). 120 Tablet 0 No current facility-administered medications for this visit. Social History Tobacco Use Smoking status: Former Current packs/day: 0.00 Average packs/day: 1 pack/day for 20.0 years (20.0 ttl pk-yrs) Types: Cigarettes Start date: 09/12/1962 Quit date: 09/12/1982 Years since quittin.3 Passive exposure: Past Smokeless tobacco: Never Tobacco comments: quit summer Vaping Use Vaping status: Never Used Substance Use Topics Alcohol use: Yes Comment: one drink several days a week Drug use: Never Review of patient's allergies indicates: Allergen Reactions Codeine Diarrhea Other reaction(s): "I GOT REALLY SICK" Synthroid [Levothyroxine Sodium] Hives and Rash Augmentin [Amoxicillin-Pot Clavulanate] Unknown Pt states it was so long ago he does not remember reaction/severity. Hydrocodone Bit-Homatrop Mbr Unknown Pt states it was so long ago he does not remember reaction/severity PHYSICAL EXAMINATION: General Appearance: Healthy appearing patient in no acute distress BP 183/70 (BP Site: Left Arm, BP Position: Sitting, BP Cuff Size: Regular) | Pulse 91 | Temp 36.4 C (97.6 F) (Tympanic) | Wt 89.8 kg (197 lb 14.4 oz) | SpO2 92% | BMI 32.93 kg/m | BSA 2.03 m Vitals reviewed. HEENT: No oral or pharyngeal masses, ulceration or thrush noted, no sinus tenderness. Neck is supple with no thyromegaly or JVD noted. Lymph Nodes: No lymphadenopathy noted in the occipital, pre and post auricular, cervical, supra andinfraclavicular, axillary, epitrochlear, inguinal, and popliteal region. Lungs/Thorax: Clear to auscultation, no accessory muscles of respiration being used. Heart: Regular rate and rhythm, normal S1, S2 Abdomen: Soft, nontender, bowel sounds present, no appreciable hepatosplenomegaly, no palpable masses Extremeties: Good pulses bilaterally, no peripheral edema. ASSESSMENT: 83-year-old male with a history of multiple medical problem including hypertension, SVT dyslipidemia, diabetes, generalized weakness and fatigue and question of COVID infection referred with a diagnosis of colon cancer. Stool test was positive for the blood done subsequently had colonoscopy done which found mass in the descending colon. Biopsy was positive for colon cancer. Subsequently underwentlaparoscopic resection of the splenic flexure mass and pathology consistent with the mucinous adenocarcinoma, 5.5 cm with 12 lymph nodes negative for metastasis, margins of resections are negative and there was no lymphovascular perineural invasion. Patient has stage pT3 pN0 stage II A disease. Patient has early stage stage II disease with intact MSI. He has no high-risk features.For patientswith resected stage II colon cancer, high-risk clinicopathologic features include a pT4 primary, poorly differentiated/undifferentiated histology (unless dMMR), fewer than 12 nodes in the surgical specimen, lymphovascular or perineural invasion, high levels of tumor budding, and clinical obstruction or perforation. He has none of these high-risk feature and the best option is continue to monitor the patient clinically. He is doing well without any new symptoms complain. He recently had hernia surgery done and now feeling better. Discussed with the patient about diagnosis reviewed all the available blood test result with him. PLAN: Return clinic in 4 months with CBC, CMP. The patient voiced understanding of all of the above. All questions and concerns were addressed in an apparently satisfactory manner. Pepito Chiang MD (This note was completed using the dictation program Fluency Direct. As such, there may be misspellings, word substitutions, or other variations that should not change the essence of the clinical content of this encounter note. If there is need for further clarification, please direct questions to me.) documented in this encounter Nursing Notes * Irene Aguilar CMA - 01/06/2024 3:10 PM EDT Patient identifed by name and birthdate Do you have any concerns about pain management for today's visit? No Living Will or Advance Directive for Health Care as noted on the problem list. [facility] is a way you can talk to your provider on line through e-mail. Would you like to sign up? I can activate it for you? ALREADY ACTIVE Filed Vitals: 01/06/24 1509 BP: 183/70 Pulse: 91 Temp: 36.4 C (97.6 F) TempSrc: Tympanic SpO2: 92% Weight: 89.8 kg (197 lb 14.4 oz) Patient was instructed to not get up on the exam table/exam chair until directed and assisted by their provider; patient is to remain seated in the chair/ wheelchair/ exam table/ exam chair for fall prevention and safety reasons. Patient is aware to have assistance to step down off exam table/exam chair with personnel. Patient voiced full comprehension of instructions. documented in this encounter Plan of Treatment Upcoming Encounters Date Type Department Care Team (Late st Contact Info) Description 02/04/2024 2:00 PM EDT Laboratory Laboratory [facility] [address] [place] [phone] Keena Armendariz [facility] [address] [place] [address] 02/24/2024 11:40 AM EST Office Visit Rheumatology [place] [phone] [place] [address] Niraj Shukla MD [address] [place] [address] 04/22/2024 1:40 PM EST Office Visit General Internal Medicine [facility] [address] [place], [place] [address] Lana Eden MD [address] [place] [address] 05/10/2024 2:15 PM EST Office Visit Hematology/Oncology [facility] [address] [place] [phone] Pepito Chiang MD 200 [facility] [place], [place] [address] 05/19/2024 3:00 PM EST [facility] [address] [place], [place] [phone] Best Shelley MD [address] [place] [address] 06/03/2024 2:00 PM EST Office Visit General Surgery, [facility] [address] [place] [address] Christophe Henriquez MD [address] [place], [place] [phone] 09/02/2024 2:00 PM EDT Office Visit Cardiology, [facility] [address] [place] [address] Billy Anthony PA-C [address] [place] [address] Scheduled Orders Name Type Priority Associated Diagnoses Orde r Schedule CBC WITH WBC DIFFERENTIAL Lab Routine Malignant neoplasm of splenic flexure (HCC) Expected: 04/26/2024, Expires: 08/31/2024 COMPREHENSIVE METABOLIC PANEL Lab Routine Malignant neoplasm of splenic flexure (HCC) Expected: 04/26/2024, Expires: 08/31/2024 Scheduled Procedures Name Priority Associated Diagnoses Date/Ti [...] D LEVEL ONCE IN A LIFETIME-USE SMARTSET# [id number] Completed 02/10/2023, 11/20/2021, 05/08/2021 Hepatitis B Vaccine [...] as of this encounter Visit Diagnoses Diagnosis Malignant neoplasm of splenic flexure (HCC)- Primary Malignant neoplasm of splenic flexure documented in this encounter Advance Directives Documents on File Type Date Recorded 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 Yes, not currently available * Full Code [...] Advance Directives occurred with: Patient Care Teams Unclaimed Property Manager Relationship Specialty Start Date End Date Lana Eden MD 200 [facility] [place] [address] PCP - General Internal Medicine 12/04/20 documented as of this encounter
--- OUTSIDE RECORDS SUMMARY | 2024-02-20 11:45 | External Medical Summary | Summary of Care ---
Author Name Unknown Organization [facility] Address [address] [place] [address] Phone [phone] Care Team Providers Care Junior Linux Systems Administrator Name Role Phone Lana Eden MD Primary Care Provider Reason for Referral * Evaluate & Treat - Unlimited Visits (Within 30 days (routine)) - Authorized Specialty Diagnoses / Procedures Referred By Maral lawson Referred To Contact Sleep Medicine / Sleep Disorders Diagnoses HTN, goal below 140/90 Apneic spell Fatigue, unspecified type Lana Eden MD [address] [facility] [facility] [address] Referral ID Status Reason Start Date Expiration Date Visits Requested Visits Authorized [id number] Authorized Specialty Services Required 12/04/2023 2 2 Question Answer Referral Priority Within 30 days (routine) [facility] Sleep Apnea Testing and Management Does the patient snore and/or gasp at night or has been told they stop breathing at night? Yes, document patient's symptoms in progress note Reason for Visit * Reason Onset Date Comments Hospital Follow-Up Hospital Follow-Up 12/04/2023 Encounter Details Date Type Department Care Team (Latest Contact Info) Description 12/04/2023 11:00 AM EDT Office Visit General Internal Medicine [facility] [address] [place] [address] [place] [address] Lana Eden MD [address] [place] [address] S/P repair of paraesophageal hernia*; Hospital discharge follow-up; Fatigue, unspecified type; Apneic spell; Type 2 diabetes mellitus with hemoglobin A1c goal of less than 7.0% ([facility]); SVT (supraventricular tachycardia) ([facility]); Steroid-induced osteoporosis; PMR (polymyalgia rheumatica) ([facility]); Paraesophageal hiatal hernia; Multiple subsegmental pulmonary emboli without acute cor pulmonale ([facility]); Malignant neoplasm of splenic flexure ([facility]); Male hypogonadism; 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 90 mL 3 04/03/2023 Active [...] 300 mg Oral HS, Reported on 07/15/2023 metFORMIN HCl ER 500 MG Oral Tablet Extended Release 24 Hour (Glucophage XR)Indications:Type 2 diabetes mellitus with hemoglobin A1c goal of less than 7.0% (HCC) TAKE 1 TABLET IN THE MORNING 90 Tablet 1 06/17/2023 Active Metoprolol Succinate ER 25 MG Oral Tablet Extended Release 24 Hour (toPROL XL) Take 2 Tablets by mouth in the morning. 180 Tablet 2 07/07/2023 Active CoQ-10 30 MG Oral Capsule Take by mouth. Active NAC 500 MG Oral Capsule (Acetylcysteine) Take by mouth. Acti ve Ondansetron HCl 4 MG Oral TabletIndications:P araesophageal hiatal hernia,Hyperlipidem ia with target LDL less than 100,Iron deficiency anemia due to chronic blood loss,Multiple subsegmental pulmonary emboli without acute cor pulmonale (HCC) Take 1 Tablet by mouth every 8 hours as needed for Nausea (After surgery). 20 Tablet 11/07/2023 Active Additional Information Patient not taking.Reported on 12/12/2023 dilTIAZem HCl ER 300 MG Oral Tablet Extended Release 24 Hour Take 300 mg by mouth every evening. Active Potassium Chloride ER 10 MEQ Oral Tablet Extended ReleaseIndications: Hypokalemia Take 2 Tablets by mouth daily. 180 Tablet 1 11/17/2023 Active predniSONE 5 MG Oral Tablet (Deltasone)Indicati ons:Polymyalgia rheumatica (HCC) Take 1 Tablet by mouth in the morning. 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 07/30 Steroid-induced osteoporosis 07/30/2022 Multiple subsegmental pulmon duyen emboli without acute cor pulmonale 06/19/2021 PMR (polymyalgia rheumatica) 05/09/2021 Iron deficiency anemia 05/09/2021 Male hypogonadism 09/28/2020 SVT (supraventricular tachycardia) 05/20/2019 Type 2 diabetes mellitus wit h hemoglobin A1c goal of less than 7.0% 12/21/2018 Overview: Per Prediabetes protocol Gastroesophageal reflux disease without esophagi tis 05/10/2015 Allergic rhinitis 05/10/2015 Hyperlipidemia with target LDL less than 100 08/2009 HTN, GOAL BELOW 140/90 03/02/2009 Overview: Modified per HTN protocol #16. ADVANCE DIRECTIVE INFORMATION 07/09/2006 Sensorineural hearing loss, bilateral documented as of this encounter (statuses as of 12/12/2023) Resolved Problems Problem Noted Date Diagnosed Date Resolved Date Hypogonadism in male 10/30/2020 021 Kidney disease, chronic, sta ge III (GFR 30-59 ml/min) 01/23/2015 11/11/2016 Overview: Per CKD protocol #1 Colon polyps 12/11/2011 03/12/2019 HTN, goal to be determined 07/09/2006 1 05/02/2008 Overview: Modified per HTN protocol #16. Dyslipidemia, goal to be determined 07/09/2006 09/16/2009 Vertigo 11/25/2017 Impacted cerumen 06/22/2008 documented as of this encounter (statuses as of 12/12/2023) Immunizations Name Administration Dates Next Due COVID-19 [...] Dos e, Trivalent, PF, IM (Fluzone HD) 12/21/2016 Seasonal Influenza, PF, 6 M & above, [...] Sign Reading Time Taken Comments Blood Pressure 138/82 12/04/2023 11:10 AM EDT Pulse 53 12/04/2023 11:10 AM EDT Temperature 36.9 C (98.4 F) 12/04/2023 11:10 AM E DT Respiratory Rate - - Oxygen Saturation 98% 12/04/2023 11:10 AM EDT Inhaled Oxygen Concentration - - Weight 90.1 kg (198 lb 9.6 oz) 12/04/2023 11:10 AM EDT Height 165.1 cm (5' 5") 12/04/2023 11:10 AM EDT Body Mass Index 33.05 12/04/2023 11:10 AM EDT documented in this encounter Functional [...] Progress Notes * Lana Eden MD - 12/04/2023 11:18 AM EDT SUBJECTIVE: Harpreet Oneal is a 83 year old male. Chief Complaint Patient presents with Hospital Follow-Up HPI: 83 year old male with a history of HTN, Hyperlipidemia, DVT, SVT, GERD, Prediabetes, Hypogonadism, TVA of the colon, and possible Myasthenia Gravis presents here for hospital follow up. Pt was having trouble with swallowing, not able to eat and dysphagia for few months with weight loss, diagnosed with significant paraesophageal hernia and plans for surgical repair . Admitted to [facility] hospital on 11/28/23 . He underwent LAPAROSCOPIC PARAESOPHAGEAL HERNIA REPAIR WO/ MESH, LAPAROSCOPIC PARAESOPHAGEAL HERNIA REPAIR W/MESH, ESOPHAGOGASTRODUODENOSCOPY (EGD), FLEXIBLE, TRANSORAL, DIAGNOSTIC Labs were overall normal except mild anemia and Imaging unremarkable. He was seen by hospitalist service . Rest of the hospital course unremarkable except he was noted to have apneic spells in periodic. . He was sent home on November 29, 2023 on esophageal diet and home medication. Since discharge feeling better . Hospital records reviewed and updated. The patient's medication list was reviewed and updated as needed. Current issues now- -He states since his surgery, he has had pain at the base of his neck/start of the spine. -He would also like to discuss having a sleep study done. He states when he was in recovery, he hada hard time waking up and his oxygen level kept dipping. Has chronic fatigue which is improving after surgery for colon cancer and anemia improving but still not normal. 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 90 mL 3 Furosemide 20 [...] by mouth at bedtime.) 90 Tablet 3 metFORMIN HCl ER 500 MG Oral Tablet Extended Release 24 Hour (Glucophage XR) TAKE 1 TABLET IN THE MORNING 90 Tablet 1 Metoprolol Succinate ER 25 MG Oral Tablet Extended Release 24 Hour (toPROL XL) Take 2 Tablets by mouth in the morning. 180 Tablet 2 CoQ-10 30 MG Oral Capsule Take by mouth. NAC 500 MG Oral Capsule (Acetylcysteine) Take by mouth. Ondansetron HCl 4 MG Oral Tablet Take 1 Tablet by mouth every 8 hours as needed for Nausea (After surgery). 20 Tablet 0 dilTIAZem HCl ER 300 MG Oral Tablet Extended Release 24 Hour Take 300 mg by mouth every evening. Potassium Chloride ER 10 MEQ Oral Tablet Extended Release Take 2 Tablets by mouth daily. 180 Tablet1 predniSONE 5 MG Oral Tablet (Deltasone) Take 1 Tablet by mouth in the morning. No current facility-administered medications for this visit. [...] polyps 12/11/2011 DM2 (diabetes mellitus, type 2) ([facility]) Dyslipidemia, goal LDL below 160 HTN, goal below 140/90 Hypogonadism in male 10/30/2020 Impacted cerumen 2004 Sensorineural hearing loss, bilateral 2004 SVT (supraventricular tachycardia) ([facility]) Vertigo 2004 Past Surgical History: Procedure Laterality Date COLONOSCOPY 2001 [place]/10 years follow up COLONOSCOPY, DIAGNOSTIC (RECTUM) 09/03/2017 adenomatous polyp, diverticulosis/[facility] COLONOSCOPY, DIAGNOSTIC (RECTUM) 07/17/2023 COLONOSCOPY FLEXIBLE PROXIMAL DIAGNOSTIC performed by Chet Bhagat DO at [facility] EGD, FLEXIBLE, DIAGNOSTIC 02/10/2019 acid reflux, hiatal hernia, repeat 2 mo / [facility] EGD, FLEXIBLE, DIAGNOSTIC 05/11/2019 acid reflux, hiatal hernia / [facility] EGD, FLEXIBLE, DIAGNOSTIC 07/17/2023 ESOPHAGOGASTRODUODENOSCOPY (EGD), FLEXIBLE, TRANSORAL, DIAGNOSTIC performed by Chet Bhagat DOat [facility] EGD, FLEXIBLE, DIAGNOSTIC N/A 11/28/2023 ESOPHAGOGASTRODUODENOSCOPY (EGD), FLEXIBLE, TRANSORAL, DIAGNOSTIC performed by Christophe Henriquez MD at [facility] LAPAROSCOPIC COLECTOMY PARTIAL WITH ANASTOMOSIS N/A 08/05/2023 LAPAROSCOPIC PARTIAL COLECTOMY WITH ANASTOMOSIS performed by Best Shelley MD at [facility] MISCELLANEOUS ORDER (HS ONLY) 10/08/2019 skin lesion removed left forehead PARAESOPHAGEAL HERNIA REPAIR, LAP W/ MESH N/A 11/28/2023 LAPAROSCOPIC PARAESOPHAGEAL HERNIA REPAIR W/MESH performed by Christophe Henriquez MD at [facility] PARAESOPHAGEAL HERNIA REPAIR, LAP W/O MESH N/A 11/28/2023 LAPAROSCOPIC PARAESOPHAGEAL HERNIA REPAIR WO/ MESH performed by Christophe Henriquez MD at [facility] REMOVE CATARACT, INSERT LENS PROSTH 2019 bilateral Family History Problem Relation Name Age [...] date: 09[birth year]1962 Quit date: 09/12/1982 Years since quittin.2 Passive exposure: Past Smokeless tobacco: Never Tobacco [...] ages 18 years and over): No Social Connections: Socially Integrated (12/27/2022) Social Connections How often do you feel lonely or isolated from those around you? (Adult - for ages 18 years and over): Never Housing Stability: Low Risk (11/28/2023) Housing Stability Do you currently live in a long term or have no steady place to sleep at night? (Adult - for ages 18 years and over): No Do you think you are at risk [...] negative except mentioned in HPI OBJECTIVE: BP 138/82 | Pulse 53 | Temp 36.9 C (98.4 F) | Ht 1.651 m (5' 5") | Wt 90.1 kg (198 lb 9.6 oz) |SpO2 98% | BMI 33.05 kg/m | BSA 2.03 m PHYSICAL EXAM: General: alert, healthy, and no distress Head: Normocephalic, No masses, lesions, tenderness or abnormalities Oropharynx: no exudate, no erythema, lips, buccal mucosa, and tongue normal, and mucous membranes are moist Neck: supple, no adenopathy, no bruits, thyroid normal size, non-tender, without nodularity Heart: regular rate & rhythm, no murmur, and no gallops Lungs: chest symmetric with normal AP diameter, no chest deformities noted, no chest wall tenderness, lungs clear to auscultation Abdomen: abdomen soft, normal bowel sounds, no masses or organomegaly, and mildly tender in surgical site but healing Extremities: less than 2 second capillary refill, no joint deformities, effusion, or inflammation ASSESSMENT AND PLAN S/P repair of paraesophageal hernia (Primary) - DISCH MED RECON CUR MED LIS Doing well overall Advance diet as tolerated and follow up with surgeon Hospital discharge follow-up Fatigue, unspecified type - SLEEP MEDICINE REFERRAL OP - DISCH MED RECON CUR MED LIS Continue iron supplement Apneic spell - SLEEP MEDICINE REFERRAL OP - DISCH MED RECON CUR MED LIS Type 2 diabetes mellitus with hemoglobin A1c goal of less than 7.0% ([facility]) - HEMOGLOBIN A1C; Future; Expected date: 02/03/2024 Stable Continue current treatment as directed SVT (supraventricular tachycardia) (HCC) Steroid-induced osteoporosis PMR (polymyalgia rheumatica) (HCC) Continue to lower prednisone Paraesophageal hiatal hernia - DISCH MED RECON CUR MED LIS Multiple subsegmental pulmonary emboli without acute cor pulmonale (HCC) On blood thinner Malignant neoplasm of splenic flexure (HCC) Male hypogonadism assisted current use of systemic steroids Iron deficiency anemia, unspecified iron deficiency anemia type - CBC; Future; Expected date: 02/03/2024 - FERRITIN; Future; Expected date: 02/03/2024 - DISCH MED RECON CUR MED LIS Hyperlipidemia with target LDL less than 100 HTN, GOAL BELOW 140/90 - SLEEP MEDICINE REFERRAL OP - COMPREHENSIVE METABOLIC PANEL; Future; Expected date: 02/03/2024 Gastroesophageal reflux disease without esophagitis - DISCH MED RECON CUR MED LIS Allergic rhinitis, unspecified seasonality, unspecified trigger Sensorineural hearing loss, bilateral Treatment and plan was discussed with patient [...] the author for clarification. Lana Eden MD 11:18 AM 12/04/2023 documented in this encounter Nursing Notes * Glenys Whalen CMA - 12/04/2023 11:07 AM EDT Patient presents today for hospital follow up. He had paraesophageal hernia repair at [facility] on 11/28/23. He states since his surgery, he has had pain at the base of his neck/start of the spine. He wouldalso like to discuss having a sleep study done. He states when he was in recovery, he had a hard time waking up and his oxygen level kept dipping. documented in this encounter Plan of Treatment Upcoming Encounters Date Type Department Care Team (Late st Contact Info) Description 12/12/2023 2:00 PM EDT Office Visit General Surgery, [facility] [address] [place] [address] Anna Ash MD [address] [facility] [place] [address] 01/06/2024 3:00 PM EDT Office Visit Hematology/Oncology [facility] [address] [place] [address] [place] [phone] Pepito Chiang MD [address] [place] [address] 02/04/2024 2:00 PM EDT Laboratory Laboratory [facility] [address] [facility] [place] [phone] [facility] [address] [facility] [place] [address] 02/24/2024 11:40 AM EST Office Visit Rheumatology [place] [phone] [place], [place] [address] Niraj Shukla MD [address] [place], [place] [address] 04/22/2024 1:40 PM EST Office Visit General Internal Medicine [facility] [address] [place], [place] [address] Lana Eden MD [address] [facility] [place], [place] [address] 05/19/2024 3:00 PM EST Telemedicine General Surgery, [place] [address] [place] [address] Best Shelley MD [address] [place] [address] 09/02/2024 2:00 PM EDT Office Visit Cardiology, [facility] [address] [facility] [place] [address] Billy Anthony PA-C [address] [place] [address] Scheduled Orders Name Type Priority Associated Diagnoses Orde r Schedule CBC Lab Routine Iron deficiency anemia, unspecified iron deficiency anemia type Expected: 02/03/2024, Expires: 12/03/2024 COMPREHENSIVE METABOLIC PANEL Lab Routine HTN, GOAL BELOW 140/90 Expected: 02/03/2024, Expires: 12/03/2024 HEMOGLOBIN A1C Lab Routine Type 2 diabetes mellitus with hemoglobin A1c goal of less than 7.0% (HCC) Expected: 02/03/2024, Expires: 12/03/2024 FERRITIN Lab Routine Iron deficiency anemia, unspecified iron deficiency anemia type Expected: 02/03/2024 (Approximate), Expires: 12/03/2024 Scheduled Procedures Name Priority Associated Diagnoses Date/Ti me COLONOSCOPY FLEXIBLE PROXIMA L DIAGNOSTIC Recall History of colonic polyps Scheduled Referrals Name Type Priority Associated Diagnoses Orde r Schedule SLEEP MEDICINE REFERRAL OP Referral Within 30 days (routine) HTN, GOAL BELOW 140/90 Apneic spell Fatigue, unspecified type Ordered: 12/04/2023 Health Maintenance Due Date Last Done Comments [...] D LEVEL ONCE IN A LIFETIME-USE SMARTSET# [id number] Completed 02/10/2023, 11/20/2021, 05/08/2021 Hepatitis B Vaccine [...] as of this encounter Visit Diagnoses Diagnosis S/P repair of paraesophageal hernia- Primary Other postprocedural status Hospital discharge follow-up Other follow-up examination Fatigue, unspecified type Apneic spell Apnea Type 2 diabetes mellitus with hemoglobin A1c goal of less than 7.0% (HCC) SVT (supraventricular tachycardia) (HCC) Other specified cardiac dysrhythmias Steroid-induced osteoporosis Other osteoporosis PMR (polymyalgia rheumatica) (HCC) Polymyalgia rheumatica Paraesophageal hiatal hernia Diaphragmatic hernia without mention of obstruction or gangrene Multiple subsegmental pulmonary emboli without acute cor pulmonale (HCC) 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 Encounter for long-term (current) use of steroids Iron deficiency anemia, unspecified iron deficiency anemia type Hyperlipidemia with target LDL less than 100 Other and unspecified hyperlipidemia HTN, GOAL BELOW 140/90 Unspecified essential hypertension Gastroesophageal reflux disease without esophagitis Esophageal reflux Allergic rhinitis, unspecified seasonality, unspecified trigger Sensorineural hearing loss, bilateral documented in this encounter Advance Directives Documents on File Type Date Recorded 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 Yes, not currently available * Full Code [...] Advance Directives occurred with: Patient Care Teams Junior Linux Systems Administrator Relationship Specialty Start Date End Date Lana Eden MD [address] [facility] [place] [address] PCP - General Internal Medicine 12/04/20 documented as of this encounter
--- OUTSIDE RECORDS SUMMARY | 2024-02-20 11:45 | External Medical Summary | Summary of Care ---
Author Name Unknown Organization [facility] Address [address] [place] [address] Phone [phone] Care Team Providers Care Manager Convention Name Role Phone Lana Eden MD Primary Care Provider [phone] Reason for Visit * Reason Comments Post-Op Laparoscopy; Repair Paraesophageal Hernia; for hiatal hernia repair; Encounter Details Date Type Department Care Team (Latest Contact Info) Description 12/12/2023 2:00 PM EDT Office Visit General Surgery, [facility] [address] [facility] [place] [address] Anna Ash MD [address] [place] [address] S/P repair of paraesophageal hernia*; Esophageal dysphagia; Postop check Allergies Active Allergy Reactions Criticality Noted Date [...] as of this encounter (statuses as of 12/21/2023) Medications Medication Sig Dispensed Refills Start Date [...] rhinitis, unspecified seasonality, unspecified trigger Administer 1 Sterling into nostril in the morning and 1 Sterling before bedtime. 90 mL 3 3 Active [...] BEFORE BEDTIME 180 Tablet 3 4 Active Irbesartan 300 MG Oral Tablet (Avapro) TAKE 1 TABLET IN THE MORNING 90 Tablet 3 4 Active Additional Information Patient taking differently: 300 mg Oral HS, Reported on 07/15/2023 Metoprolol Succinate ER 25 MG Oral Tablet Extended Release 24 Hour (toPROL XL) Take 2 Tablets by mouth in the morning. 180 Tablet 2 4 Active CoQ-10 30 MG Oral Capsule [...] by mouth in the morning. 4 Active Metoclopramide HCl 10 MG Oral Tablet (Reglan) Take 1 Tablet by mouth in the morning and 1 Tablet at noon and 1 Tablet in the evening and 1 Tablet before bedtime. 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 (Household - for ages [...] Sign Reading Time Taken Comments Blood Pressure 126/78 12/12/2023 1:58 PM EDT Pulse 107 12/12/2023 1:58 PM EDT Temperature - - Respiratory Rate - - Oxygen Saturation - - Inhaled Oxygen Concentration - - Weight 86.6 kg (191 lb) 12/12/2023 1:58 PM EDT Height - - Body Mass Index 31.78 12/12/2023 10:22 AM EDT documented in this [...] as of this encounter Progress Notes * Anna Ash MD - 12/12/2023 2:00 PM EDT [facility]" AT [facility] CLINIC VISIT 12/12/2023 Harpreet Oneal [id number] 83 year old PCP: Lana Eden MD Consult requested by: Chet ABBOTT Surgical History: 11/28/23 - DMP 1) Laparoscopy; Repair Paraesophageal Hernia; for hiatal hernia repair; 2) Laparoscopy; Gastropexy 3) Upper GI Endoscopy, simple primary examination HPI: This patient presents for follow up after Laparoscopic Paraesophageal Hernia Repair without Amada Gastroplasty No Fundoplication without placement of mesh. Patient's having some dysphagia and trouble swallowing. Currently tolerating a soft diet. The patient's postoperative outpatient narcotic requirement was: Used none The main preoperative symptoms included failure to thrive and abdominal pain. Symptoms that are resolved or significantly improved include failure to thrive and abdominal pain. Preoperative Reflux Symptom Index score was 12. Preoperative GERD-Health Related Quality of Life score was 8. Current symptoms: Heartburn Score: 0 - None Gas Bloat Score: 0 - None Dysphagia Score: 2 - greater than once per week, requiring dietary modification Regurgitation Score: 0 - none Nausea/Vomiting Score: 0 - none Diarrhea: 1 - minimal/episodic Current symptom scorin QOLRAD completed: yes Burping or belching no Tolerating Full liquids and soft foods. Any history of Alegria's esophagitis?No; Follow up EGD? N/A Complications: Postoperative complications include: 0 - NONE Clavien Score: N/A Unplanned admission to ICU within 30 days? no Readmission with in 30 days? no Interventions/Re-operations within 30 days? no Current Outpatient Medications Medication Sig Dispense Refill [...] 0.1 % Nasal Solution (Astelin) Administer 1 Sterling into nostril in the morning and 1 Sterling before bedtime. 90 mL 3 Furosemide 20 [...] hours as needed for Nausea (After surgery). (Patient not taking: Reported on 12/12/2023) 20 Tablet 0 dilTIAZem HCl ER 300 [...] No current facility-administered medications for this visit. Allergies as of 12/12/2023 - Reviewed 12/12/2023 Allergen Reaction Noted Codeine Diarrhea 01/05/2020 Synthroid [levothyroxine sodium] Hives and Rash 10/01/2010 Augmentin [amoxicillin-pot clavulanate] Unknown 02/23/2019 Hydrocodone bit-homatrop mbr Unknown 08/27/2016 Physical Exam: 12/11/2023 BP 126/78 | Pulse 107 | Wt 86.6 kg (191 lb) | BMI 31.78 kg/m | BSA 1.99 m General: Alert and appropriate. Well-appearing and in no distress Abdomen: Soft; Nontender; NO Distention; NO Organomegaly; NO Masses. Wounds: incisions clean/dry/intact. Hernia; NONE Impression: Good progress after 11/28/23 - DMP 1) Laparoscopy; Repair Paraesophageal Hernia; for hiatal hernia repair; 2) Laparoscopy; Gastropexy 3) Upper GI Endoscopy, simple primary examination Plan: 1) Diet: Cut and chew foods to the consistency of applesauce. Eat slowly and with plenty of liquids. Regular diet. 2) Activity: Limited to lifting less than 25 pounds. No deep bending and stretching for 2 more weeks. 3) Follow up visit scheduled in [facility] ("[facility]"): 6 months 4) Wound: Healing well and may be left open to air. He may bathe and shower normally. 5) Dysphagia: appears to be mild but may be related to esophageal dysmotility which was noted on his preop UGI. Patient had refused manometry preoperatively. Offered testing vs prophylactic motility agent. Patient agreeable to trial of Reglan. 6) Return to work/school: N/A Benefsha Mohammad M.D. Minimally Invasive Foregut and Bariatric Surgeon [facility] Office documented in this encounter Nursing Notes * Bonilla Elizalde MED ASSIST - 12/12/2023 1:59 PM EDT Chief Complaint Patient presents with Post-Op Laparoscopy; Repair Paraesophageal Hernia; for hiatal hernia repair; Verified patient. Some pain 2-06/21 on/off. documented in this encounter Plan of Treatment Upcoming Encounters Date Type Department Care Team (Late st Contact Info) Description 01/06/2024 3:00 PM EDT Office Visit Hematology/Oncology [facility] [address] [place] [id number] Pepito Chiang MD [address] [place], [place] [address] 02/04/2024 2:00 PM EDT Laboratory Laboratory [facility] [address] [place], [place] [id number] [place], [facility] [address] [place], [place] [address] 02/24/2024 11:40 AM EST Office Visit Rheumatology [facility] [address] [employer] [address] [place], [place] [address] Niraj Shukla MD [address] [place] [address] 04/22/2024 1:40 PM EST Office Visit General Internal Medicine [facility] [address] [place], [place] [address] Lana Eden MD [address] [place], [place] [address] 05/19/2024 3:00 PM EST Telemedicine General Surgery, [facility] [address] [place] [address] Best Shelley MD [address] [place] [address] 06/03/2024 2:00 PM EST Office Visit General Surgery, [facility] [address] [facility] [place] [address] Christophe Henriquez MD [address] [place] [address] 09/02/2024 2:00 PM EDT Office Visit Cardiology, [facility] [address] [facility] [place] [address] Billy Anthony PA-C [address] [facility] [place] [address] Scheduled Procedures Name Priority Associated Diagnoses Date/Ti [...] D LEVEL ONCE IN A LIFETIME-USE SMARTSET# [id number] Completed 02/10/2023, 11/20/2021, 05/08/2021 Hepatitis B Vaccine [...] of paraesophageal hernia- Primary Other postprocedural status Esophageal dysphagia Dysphagia, pharyngoesophageal phase Postop check Follow-up examination, following unspecified surgery documented in this encounter Advance Directives Documents on File Type Date Recorded 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 Yes, not currently available * Full [...] Advance Directives occurred with: Patient Care Teams Manager Convention Relationship Specialty Start Date End Date Lana Eden MD [address] [place] [address] PCP - General Internal Medicine 12/04/20 documented as of this encounter
--- OUTSIDE RECORDS SUMMARY | 2024-02-20 11:45 | External Medical Summary | Summary of Care ---
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 Name Role Phone Lana Eden MD Primary Care Provider [phone] Reason for Referral * Precert (Diagnostic Medical) (Within 10 days (routine)) - Pending Review Specialty Diagnoses / Procedures Referred By Contac t Referred To Contact Sleep Disorders Diagnoses Observed sleep apnea Fatigue, unspecified type Sleep apnea, unspecified type Procedures SLEEP STUDY, W/ CPAP (TREATMENT SETTINGS) Bia De La Cruz DO [address] [place] [address] Referral ID Status Reason Start Date Expiration Date V isits Requested Visits Authorized [id number] Pending Review 12/12/2023 999 999 * Precert (Diagnostic Medical) (Within 10 days (routine)) - Pending Review Specialty Diagnoses / Procedures Referred By Contac lulu Referred To Contact Sleep Disorders Diagnoses Observed sleep apnea Fatigue, unspecified type Sleep apnea, unspecified type Procedures SLEEP STUDY, W/O CPAP Bia De La Cruz DO [address] [place] [address] Referral ID Status Reason Start Date Expiration Date V isits Requested Visits Authorized [id number] Pending Review 12/12/2023 999 999 Reason for Visit * Reason Comments NEW PATIENT * Evaluate & Treat - Unlimited Visits (Within 30 days (routine)) - Authorized Specialty Diagnoses / Procedures Referred By Maral t Referred To Contact Sleep Medicine / Sleep Disorders Diagnoses HTN, goal below 140/90 Apneic spell Fatigue, unspecified type Lana Eden MD [address] [place] [address] Referral ID Status Reason Start Date Expiration Date Visits Requested Visits Authorized [id number] Authorized Specialty Services Required 12/04/2023 2 2 Encounter Details Date Type Department Care Team (Late st Contact Info) Description 12/12/2023 10:20 AM EDT Office Visit [facility] [place] [address] [place] [phone] Bia De La Cruz DO [address] [place] [id number] Observed sleep apnea*; Fatigue, unspecified type; Sleep apnea, unspecified type Allergies Active Allergy Reactions Criticality Noted Date [...] rhinitis, unspecified seasonality, unspecified trigger Administer 1 Kapaa into nostril in the morning and 1 Kapaa before bedtime. 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 of systemic steroids 07/30 [...] Time Taken Comments Blood Pressure 126/78 12/12/2023 10:22 AM EDT Pulse 106 12/12/2023 10:22 AM EDT Temperature 36.2 C (97.2 F) 12/12/2023 10:22 AM E DT Respiratory Rate - - Oxygen Saturation 98% 12/12/2023 10:22 AM EDT ra at rest Inhaled Oxygen Concentration - - Weight 87 kg (191 lb 12 oz) 12/12/2023 10:22 AM EDT Height 165.1 cm (5' 5") 12/12/2023 10:22 AM EDT Body Mass Index 31.91 12/12/2023 10:22 AM EDT documented in this [...] this encounter Patient Instructions * Patient Instructions* Bia De La Cruz, DO - 12/12/2023 11:03 AM EDT SLEEP APNEA We are concerned that you may have sleep apnea. Sleep apnea is when someone has difficulties with breathing only during sleep. This typically happens without the patient being aware they are having breathing issues. Obstructive sleep apnea is very common. It can be seen in kids and adults. It can cause symptoms of excessive daytime sleepiness, fatigue, morning headaches, and poor memory and cognition. It can also lead to difficulties at work or school and motor vehicle accidents. If left untreated, it puts people at risk for heart attacks, strokes, and diabetes. We diagnose sleep apnea with a sleep study. When you come in for an in lab sleep study, a trained hot cell technician will be present at the sleep center to administer and monitor the test. They will beputting sensors on you that monitor your brain waves, breathing, movements, and respiratory effort.They will not be putting in any IV's or using any needles, and none of the sensors should be painful, though they may be annoying or uncomfortable to some patients when they are trying to sleep. You will have a private room with your own bathroom. Please feel free to bring your own pillow or blanket if you feel this would help you sleep more comfortably. They provide these things for you, but we want you to feel as comfortable and relaxed as possible when you are spending the night in the sleepcenter. [facility] is accredited by the [place] [employer] (AASM). To receive accreditation, a sleep center must meet or exceed all standards for professional quality sleep medicine care as designated by the Academy. More information can be obtained at: SleepEducation.org documented in this encounter Progress Notes * Wilfredo De La Cruzron JoeDO lulu - 12/12/2023 10:17 AM EDT Sleep Medicine Evaluation [facility] [address] [place] [address] Consultation was requested by: Lana Eden MD for: HTN, apneic spell, fatigue and a copy of this report is being sent to the provider electronically. Relevant available records reviewed. HPI: Harpreet Oneal is a(n) 83 year old male presenting for evaluation for possible sleep apnea. He had hernia repair surgery 2 weeks ago. While in recovery, his oxygen level kept dropping; this prompted concern for sleep apnea. tells him he sleeps very still (does not move in sleep). He sometimes dozes off watching TV in the evening; in that time, his will notice times when heseems to stop breathing for a few seconds, then his leg will twitch and he will stir. They sleep in separate rooms, so not sure if this happens with overnight sleep. Varying bedtime based on when he is tired. Patient reports a typical bedtime of midnight to 2-3 AM. It takes not long to fall asleep. Patient awakens once overnight, to go to the bathroom. It takes not long to return to sleep. 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 Patient does get tired during the day. Easily fatigued, diagnosed with PMR, treated with prednisone. He does have a little more energy with the prednisone. He also had a cancerous growth removed with a prior surgery. Patient does not typically take naps. Patient does not have caffeine (none since last July). The patient reports having ("+" indicates reports, "-" indicates denies): - Snoring (never snores) + Observed apneas, noted by with evening dozing. - Choking/gasping awakenings - Mouth breathing - Acid reflux at night + Nocturia x1 - Morning headaches - Teeth grinding Restless Legs Syndrome Symptoms ("+" indicates reports, "-" indicates denies): - Urge to move legs at night Rare leg jerk Still sleeper Parasomnias Symptoms ("+" indicates reports, "-" indicates denies): - Sleepwalking - Dream-enactment Excessive Daytime Sleepiness: [place] Sleepiness Scale 6 Modified F.O.S.Q. 38 no Drowsy driving sometimes Sleepy with sedentary activity Travel Screening Question 12/12/2023 10:13 AM EDT - Filed by Patient Do you have any of the following new or worsening symptoms? None of these Have you recently been in contact with someone who was sick? No / Unsure [place] Sleepiness Scale Question 12/12/2023 10:30 AM EDT - Filed by Jose Aleman, Recensus ASSIST What is the chance you will doze off in the following situation? Sitting and reading High chance of dozing Watching TV High chance of dozing Sitting inactive in a public place, such as a theater or meeting No chance of dozing As a passenger in a car for an hour without a break No chance of dozing Lying down to rest in the afternoon when circumstances permit No chance of dozing When sitting and talking to someone No chance of dozing When sitting quietly after lunch without alcohol No chance of dozing In a car, while stopped for a few minutes in traffic No chance of dozing Score (range: 0 - 24) 6 Functional Outcomes Of Sleep Question 12/12/2023 10:33 AM EDT - Filed by Jose Aleman, MED ASSIST Please complete the following questions. Do you have difficulty concentrating because you are sleepy or tired? Yes, a little Do you have difficulty remembering things because you are sleepy or tired? No Do you have difficulty operating a motor vehicle for short distances (less than 100 miles) because you become sleepy? No Do you have difficulty operating a motor vehicle for long distances (more than 100 miles) because you become sleepy? No Do you have difficulty visiting family or friends in their home because you become sleepy or tired?No Has your relationship with family, friends, or work colleagues been affected because you are sleepyor tired? No Do you have difficulty watching a movie or video because you become sleepy or tired? Yes, a little Do you have difficulty being as active as you want to be in the evening because you are tired or sleepy? No Do you have difficulty being as active as you want to be in the morning because you are tired or sleepy? No Has your mood been affected because you are sleepy or tired? No Score (range: 10 - 40) 38 PMH: Past Medical History: Diagnosis Date Colon polyps 12/11/2011 DM2 (diabetes mellitus, type 2) (HCC) Dyslipidemia, goal LDL below 160 HTN, goal below 140/90 Hypogonadism in male 10/30/2020 Impacted cerumen 2004 Sensorineural hearing loss, bilateral 2004 SVT (supraventricular tachycardia) (HCC) Vertigo 2004 PMR Malignant neoplasm of splenic flexure PE (single episode, multiple subsegmental PEs) GERD Past Surgical History: Procedure Laterality Date COLONOSCOPY 2001 [place]/10 years follow up COLONOSCOPY, DIAGNOSTIC (RECTUM) 09/03/2017 adenomatous polyp, diverticulosis/[facility] COLONOSCOPY, DIAGNOSTIC (RECTUM) 07/17/2023 COLONOSCOPY FLEXIBLE PROXIMAL DIAGNOSTIC performed by Chet Bhagat DO at ENDOSCOPY [facility] EGD, FLEXIBLE, DIAGNOSTIC 02/10/2019 acid reflux, hiatal hernia, repeat 2 mo / [facility] EGD, FLEXIBLE, DIAGNOSTIC 05/11/2019 acid reflux, hiatal hernia / [facility] EGD, FLEXIBLE, DIAGNOSTIC 07/17/2023 ESOPHAGOGASTRODUODENOSCOPY (EGD), FLEXIBLE, TRANSORAL, DIAGNOSTIC performed by Chet Bhagat DOat ENDOSCOPY [facility] EGD, FLEXIBLE, DIAGNOSTIC N/A 11/28/2023 ESOPHAGOGASTRODUODENOSCOPY (EGD), FLEXIBLE, TRANSORAL, DIAGNOSTIC performed by Christophe Henriquez MD at OR [facility] LAPAROSCOPIC COLECTOMY PARTIAL WITH ANASTOMOSIS N/A 08/05/2023 LAPAROSCOPIC PARTIAL COLECTOMY WITH ANASTOMOSIS performed by Best Shelley MD at [facility] MISCELLANEOUS ORDER ([facility] ONLY) 10/08/2019 skin lesion removed left forehead PARAESOPHAGEAL HERNIA REPAIR, LAP W/ MESH N/A 11/28/2023 LAPAROSCOPIC PARAESOPHAGEAL HERNIA REPAIR W/MESH performed by Christophe Henriquez MD at [facility] PARAESOPHAGEAL HERNIA REPAIR, LAP W/O MESH N/A 11/28/2023 LAPAROSCOPIC PARAESOPHAGEAL HERNIA REPAIR WO/ MESH performed by Christophe Henriquez MD at OR [facility] REMOVE CATARACT, INSERT LENS PROSTH 2019 bilateral ALLERGIES: Review of patient's allergies indicates: Allergen Reactions Codeine Diarrhea Other reaction(s): "I GOT REALLY SICK" Synthroid [Levothyroxine Sodium] Hives and Rash Augmentin [Amoxicillin-Pot Clavulanate] Unknown Pt states it was so long ago he does not remember reaction/severity. Hydrocodone Bit-Homatrop Mbr Unknown Pt states it was so long ago he does not remember reaction/severity MEDS: Current Outpatient Medications Medication Sig Dispense Refill predniSONE 5 MG Oral Tablet (Deltasone) Take 1 Tablet by mouth in the morning. Potassium Chloride ER 10 MEQ Oral Tablet Extended Release Take 2 Tablets by mouth daily. 180 Tablet1 dilTIAZem HCl ER 300 MG Oral Tablet Extended Release 24 Hour Take 300 mg by mouth every evening. CoQ-10 30 MG Oral Capsule Take by mouth. NAC 500 MG Oral Capsule (Acetylcysteine) Take by mouth. Metoprolol Succinate ER 25 MG Oral Tablet Extended Release 24 Hour (toPROL XL) Take 2 Tablets by mouth in the morning. 180 Tablet 2 metFORMIN HCl ER 500 MG Oral Tablet Extended Release 24 Hour (Glucophage XR) TAKE 1 TABLET IN THE MORNING 90 Tablet 1 Irbesartan 300 MG Oral Tablet (Avapro) TAKE 1 TABLET IN THE MORNING (Patient taking differently: Take 1 Tablet by mouth at bedtime.) 90 Tablet 3 Eliquis 5 MG Oral Tablet (Apixaban) TAKE 1 TABLET IN THE MORNING AND 1 TABLET BEFORE BEDTIME 180 Tablet 3 Atorvastatin Calcium 20 MG Oral Tablet (Lipitor) TAKE 1 TABLET IN THE MORNING 90 Tablet 3 Furosemide 20 MG Oral Tablet (Lasix) Take 1 Tablet by mouth in the morning. 90 Tablet 3 Vitamin B-12 1000 MCG Oral Tablet (Cyanocobalamin) Take 1 Tablet by mouth in the morning. Azelastine HCl 0.1 % Nasal Solution (Astelin) Administer 1 Kapaa into nostril in the morning and 1 Kapaa before bedtime. 90 mL 3 Zinc 22.5 MG Oral Tablet Take by mouth. Magnesium 100 MG Oral Capsule Take by mouth every evening. Vitamin K2 100 MCG Oral Capsule Take by mouth 1 Capsule daily . Vitamin D3 125 MCG (5000 UT) Oral Capsule Take 1 Capsule by mouth in the morning. Calcium Carbonate-Vitamin D 600-200 MG-UNIT Oral Tablet daily. Iron 325 (65 Fe) MG Oral Tablet Take 1 Tablet by mouth once. Ondansetron HCl 4 MG Oral Tablet Take 1 Tablet by mouth every 8 hours as needed for Nausea (After surgery). (Patient not taking: Reported on 12/12/2023) 20 Tablet 0 No current facility-administered medications for this visit. FHx: no known family history of sleep disordered breathing Social hx: Tobacco use: former Alcohol use: in moderation Drug use: none Employment: retired PE: VITAL SIGNS: Filed Vitals: 12/12/23 1022 BP: 126/78 Pulse: 106 Temp: 36.2 C (97.2 F) TempSrc: Tympanic SpO2: 98% Weight: 87 kg (191 lb 12 oz) Height: 1.651 m (5' 5") Body mass index is 31.91 kg/m. GEN: Ambulatory, NAD ORAL: Oral mucous membranes moist OP: Uvula normal Soft palate normal Mallampati IV, Perkins II Tonsils 1+ NECK: Circumference 15" RESP: Unlabored respirations Breath sounds clear, no wheezes or rales CVS: Predominantly regular rhythm with occasional skipped beat, tachycardic NEURO: Speech clear and appropriate IMPRESSION/RECOMMENDATIONS: Concern for central > obstructive sleep apnea, as he is not a snorer, but has had witnessed apneas - Discussed the pathophysiology, implications on short- and long-term health, diagnostic evaluation, and likely treatment of FOREST vs CSA - Schedule an overnight PSG - split night protocol if meets criteria. In-lab study recommended due to concern for central apnea - Avoid driving when sleepy/drowsy. Follow-up: Return will send MyG with PSG results. | Check-out note: PSG [facility] Bia De La Cruz DO documented in this encounter Nursing Notes * Jose Aleman, MED ASSIST - 12/12/2023 10:14 AM EDT NPC for sleep apnea and fatigue Neck circumference: 15 Travel Screening Question 12/12/2023 10:13 AM EDT - Filed by Patient Do you have any of the following new or worsening symptoms? None of these Have you recently been in contact with someone who was sick? No / Unsure [place] Sleepiness Scale Question 12/12/2023 10:30 AM EDT - Filed by Jose Aleman MED ASSIST What is the chance you will doze off in the following situation? Sitting and reading High chance of dozing Watching TV High chance of dozing Sitting inactive in a public place, such as a theater or meeting No chance of dozing As a passenger in a car for an hour without a break No chance of dozing Lying down to rest in the afternoon when circumstances permit No chance of dozing When sitting and talking to someone No chance of dozing When sitting quietly after lunch without alcohol No chance of dozing In a car, while stopped for a few minutes in traffic No chance of dozing Score (range: 0 - 24) 6 Functional Outcomes Of Sleep Question 12/12/2023 10:33 AM EDT - Filed by Jose Aleman MED ASSIST Please complete the following questions. Do you have difficulty concentrating because you are sleepy or tired? Yes, a little Do you have difficulty remembering things because you are sleepy or tired? No Do you have difficulty operating a motor vehicle for short distances (less than 100 miles) because you become sleepy? No Do you have difficulty operating a motor vehicle for long distances (more than 100 miles) because you become sleepy? No Do you have difficulty visiting family or friends in their home because you become sleepy or tired?No Has your relationship with family, friends, or work colleagues been affected because you are sleepyor tired? No Do you have difficulty watching a movie or video because you become sleepy or tired? Yes, a little Do you have difficulty being as active as you want to be in the evening because you are tired or sleepy? No Do you have difficulty being as active as you want to be in the morning because you are tired or sleepy? No Has your mood been affected because you are sleepy or tired? No Score (range: 10 - 40) 38 documented in this encounter Plan of Treatment Upcoming Encounters Date Type Department Care Team (Late st Contact Info) Description 12/12/2023 2:00 PM EDT Office Visit General Surgery, [facility] [address] [facility] [place] [address] Anna Ash MD [address] [place] [address] [facility]" AT 01/06/2024 3:00 PM EDT Office Visit Hematology/Oncology [facility] [address] [place] [phone] Pepito Chiang MD [address] [place] [address] 02/04/2024 2:00 PM EDT Laboratory Laboratory [facility] [address] [place] [phone] [facility] [address] [facility] [place] [address] 02/24/2024 11:40 AM EST Office Visit Rheumatology [place] [phone] [employer] [place], [place] [address] Niraj Shukla MD [address] [place] [address] 04/22/2024 1:40 PM EST Office Visit General Internal Medicine [facility] [address] [place], [place] [address] Lana Eden MD [address] [facility] [place] [address] 05/19/2024 3:00 PM EST Telemedicine General Surgery, [facility] [address] [place], [place] [phone] Best Shelley MD [address] [place], [place] [phone] 09/02/2024 2:00 PM EDT Office Visit Cardiology, [facility] [address] [facility] [place] [address] Billy Anthony PA-C [address] [place] [address] Scheduled Orders Name Type Priority Associated Diagnoses Orde r Schedule SLEEP STUDY, W/O CPAP Procedures Routine Observed sleep apnea Fatigue, unspecified type Sleep apnea, unspecified type Ordered: 12/12/2023 SLEEP STUDY, W/ CPAP (TREATMENT SETTINGS) Procedures Routine Observed sleep apnea Fatigue, unspecified type Sleep apnea, unspecified type Ordered: 12/12/2023 Scheduled Procedures Name Priority Associated Diagnoses Date/Ti [...] D LEVEL ONCE IN A LIFETIME-USE SMARTSET# [id number] Completed 02/10/2023, 11/20/2021, 05/08/2021 Hepatitis B Vaccine [...] as of this encounter Visit Diagnoses Diagnosis Sleep apnea, unspecified type Fatigue, unspecified type documented in this encounter Advance Directives Documents on File Type Date Recorded Patient 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
--- OUTSIDE RECORDS SUMMARY | 2024-02-20 11:45 | External Medical Summary | Summary of Care ---
Author Name Unknown Organization [facility] Address [address] [place] [address] Phone [phone] Care Team Providers Care Substation Designer Name Role Phone Lana Eden MD Primary Care Provider [phone] Reason for Visit * Reason Comments eRx-Medication Refill Encounter Details Date Type Department Care Team (Late st Contact Info) Description 12/08/2023 Refill General Internal Medicine [facility] [address] [facility] [place] [address] Niraj Shukla MD [address] [place] [address] Polymyalgia rheumatica (HCC) Allergies Active Allergy Reactions Criticality Noted Date [...] as of this encounter (statuses as of 12/09/2023) Medications Medication Sig Dispensed Refills Start Date [...] rhinitis, unspecified seasonality, unspecified trigger Administer 1 Delancey into nostril in the morning and 1 Delancey before bedtime. 90 mL 3 04/03/2023 Active [...] Nausea (After surgery). 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 07/30 Steroid-induced [...] as of this encounter (statuses as of 12/09/2023) Resolved Problems Problem Noted Date Diagnosed Date [...] as of this encounter (statuses as of 12/09/2023) Immunizations Name Administration Dates Next Due COVID-19 [...] Unspecified Formulation 12/19/2021,01/10/2021,12/14/2019,01/10,12/21/2016,01/15/2016,12/28/2015 ,12/28/2014,12/15/2013,12/28/2012,12/13,02/07/2011,01/14/2010, 9,01/19/2008,02/02/2007 Seasonal Influenza, PF, 6 M & above, IM , (FluLaval or Fluzone) 01/07/2018 Seasonal Influenza, Quadriva lent Hd (Fluzone Hd) 12/27/2022 Seasonal Influenza, Split, I IV3, With Preserve, Inj 12/28/2015,12/28/2014,12/15/2013,12/28,12/31/2011,02/07/2011,01/14/2010 ,12/22/2008,01/19/2008,02/02/2007 Seasonal Influenza, Trivalen t, Adjuvanted, 65+ yrs 12/01/2018 Seasonal Influenza, Trivalen t, High Dose, No Preserve, IM 12/21/2016 TDAP, Age 7 and older, IM (Adacel) [...] encounter Miscellaneous Notes * Telephone Encounter - Alexandra Robles [facility] - 12/09/2023 4:18 PM EDTRefused Prescriptions: Disp Refills predniSONE 10 MG Oral Tablet (Deltasone) 90 Tab*3 Sig: TAKE 1 TABLET IN THE MORNINGRefused By: ALEXANDRA ROBLESNReason for Refusal: Dose needs clarification------ documented in this encounter Plan of Treatment Upcoming Encounters Date Type Department Care Team (Late st Contact Info) Description 12/12/2023 10:20 AM EDT Office Visit Sleep Disorders Ctr [facility] [address] [facility] [place] [phone] Bia De La Cruz DO [address] [facility] [place] [address] 12/12/2023 2:00 PM EDT Office Visit General Surgery, [facility] [address] [facility] [place] [address] Anna Ash MD [address] [place] [address] 01/06/2024 3:00 PM EDT Office Visit Hematology/Oncology [facility] [address] [place] [phone] Pepito Chiang MD [address] [place] [address] 02/04/2024 2:00 PM EDT Laboratory Laboratory [facility] [address] [place] [phone] Keena Armendariz[address] [place] [address] 02/24/2024 11:40 AM EST Office Visit Rheumatology [facility] [address] [facility] [place], [place] [address] Niraj Shukla MD [address] [facility] [place], [place] [address] 04/22/2024 1:40 PM EST Office Visit General Internal Medicine [facility] 200 [facility] [place], [place] [address] Lana Eden MD [address] [facility] [place] [address] 05/19/2024 3:00 PM EST Telemedicine General Surgery, [place] [address] [place], [place] [phone] Best Shelley MD [address] [place], [place] [phone] 09/02/2024 2:00 PM EDT Office Visit Cardiology, [facility] [address] [facility] [place] [address] Billy Anthony PA-C [address] [facility] [place] [address] Scheduled Procedures Name Priority Associated Diagnoses Date/Ti me COLONOSCOPY FLEXIBLE PROXIMA L DIAGNOSTIC Recall History of colonic polyps Health Maintenance Due Date Last Done Comments COVID-19 Vaccine ( season) 2023 02/25/2023, 01/11/2022, 08/25/2021, Additional history exists Influenza Vaccine (FLU shot) (#1) 2023 12/27/2022, 12/19/2021, 01/10/2021, Additional history exists Adult Wellness Visit 12/28/2023 [...] D LEVEL ONCE IN A LIFETIME-USE SMARTSET# [id number] Completed 02/10/2023, 11/20/2021, 05/08/2021 Hepatitis B Vaccine Completed 10/20/2023, 07/18/2023, 04/24/2023 HPV (Gardasil) Vaccine Aged Out No lo nger eligible based on patient's age to complete this topic MENINGOCOCCAL (MENACTRA/MENVEO) Aged Out No longer eligible based on patient's age to complete this topic documented as of this encounter Medical Devices Not on filedocumented as of this encounter Visit Diagnoses Diagnosis Polymyalgia rheumatica (HCC) Polymyalgia rheumatica documented in this encounter Advance Directives Documents on File Type Date Recorded 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 Yes, not currently available * Full Code [...] Advance Directives occurred with: Patient Care Teams Substation Designer Relationship Specialty Start Date End Date Lana Eden MD [address] [place] [address] PCP - General Internal Medicine 12/04/20 documented as of this encounter
--- OUTSIDE RECORDS SUMMARY | 2024-02-20 11:45 | External Medical Summary | Summary of Care ---
Author Name Unknown Organization [facility] Address [address] [place] [address] Phone [phone] Care Team Providers Care Merchandise Stocker Name Role Phone Lana Eden MD Primary Care Provider [phone] Reason for Visit * Reason Comments eRx-Medication Refill Encounter Details Date Type Department Care Team (Late st Contact Info) Description 12/15/2023 Refill General Internal Medicine [facility] [address] [facility] [place] [address] Lana Eden MD [address] [place] [address] Type 2 diabetes mellitus with hemoglobin A1c goal of less than 7.0% ([facility]) Allergies Active Allergy Reactions Criticality Noted Date [...] as of this encounter (statuses as of 12/17/2023) Medications Medication Sig Dispensed Refills Start Date [...] rhinitis, unspecified seasonality, unspecified trigger Administer 1 Drummond into nostril in the morning and 1 Drummond before bedtime. 90 mL 3 04/03/2023 Active [...] Acti ve Ondansetron HCl 4 MG Oral TabletIndications :Paraesophageal hiatal hernia,Hyperlipid emia with target LDL less than 100,Iron deficiency [...] 1 Tablet before bedtime. 120 Tablet 12/12/2023 01/11/20 24 Active metFORMIN HCl ER 500 MG Oral Tablet Extended Release 24 Hour (Glucophage XR)Indications:Ty pe 2 diabetes mellitus with hemoglobin A1c goal of less than 7.0% (HCC) TAKE 1 TABLET IN THE MORNING 90 Tablet 3 12/17/2023 Active metFORMIN HCl ER 500 MG Oral Tablet Extended Release 24 Hour (Glucophage XR)Indications:Ty pe 2 diabetes mellitus with hemoglobin A1c goal of less than 7.0% (HCC) TAKE 1 TABLET IN THE MORNING 90 Tablet 1 06/17/2023 12/17/19 24 Discontinued documented as of this encounter (statuses as of 12/17/2023) Active Problems Problem Noted Date Diagnosed Date Paraesophageal hiatal hernia 10/09/2023 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 07/30 Steroid-induced [...] as of this encounter (statuses as of 12/17/2023) Resolved Problems Problem Noted Date Diagnosed Date [...] as of this encounter (statuses as of 12/17/2023) Immunizations Name Administration Dates Next Due COVID-19 [...] encounter Miscellaneous Notes * Telephone Encounter - Geneva Ritter RPh - 12/17/2023 8:59 AM EDTSigned Prescriptions: Disp Refills metFORMIN HCl ER 500 MG Oral Tablet Extend*90 Tab*3 Sig: TAKE 1 TABLET IN THE MORNINGAuthorizing Provider: Raymond EDEN User: GENEVA RITTER-------- documented in this encounter Plan of Treatment Upcoming Encounters Date Type Department Care Team (Late st Contact Info) Description 01/06/2024 3:00 PM EDT Office Visit Hematology/Oncology [facility] [address] [place] [phone] Pepito Chiang MD [address] [place] [address] 02/04/2024 2:00 PM EDT Laboratory Laboratory [facility] [address] [place] [address] [phone] Keena Armendariz [address] [place] [address] 02/24/2024 11:40 AM EST Office Visit Rheumatology [facility] [address] [facility] [place], [place] [address] Niraj Shukla MD [address] [facility] [place] [address] 04/22/2024 1:40 PM EST Office Visit General Internal Medicine [facility] [place] [address] [facility] [place] [address] Lana Eden MD [address] [facility] [place] [address] 05/19/2024 3:00 PM EST Telemedicine General Surgery, [place] [address] [place], [place] [phone] Best Shelley MD [address] [place], [place] [phone] 06/03/2024 2:00 PM EST Office Visit General Surgery, [facility] 132 [facility] [place] [address] Christophe Henriquez MD [address] [place], [place] [phone] 09/02/2024 2:00 PM EDT Office Visit Cardiology, [facility] 132 [facility] [place] [address] Billy Anthony PA-C 132 [facility] [place] [address] Scheduled Procedures Name Priority Associated Diagnoses Date/Ti me COLONOSCOPY FLEXIBLE PROXIMA L DIAGNOSTIC Recall History of colonic polyps Health Maintenance Due Date Last Done Comments COVID-19 Vaccine (2022- season) 2023 02/25/2023, 01/11/2022, 08/25/2021, Additional history [...] D LEVEL ONCE IN A LIFETIME-USE SMARTSET# [id number] Completed 02/10/2023, 11/20/2021, 05/08/2021 Hepatitis B Vaccine [...] as of this encounter Visit Diagnoses Diagnosis Type 2 diabetes mellitus with hemoglobin A1c goal of less than 7.0% (HCC) documented in this encounter Advance Directives Documents on File Type Date Recorded Patient Durability Technician Expl anation Advance Directives and Living [...] the patient have Health Care Power of Brewery Representative? Yes, not currently available * Full Code [...] Advance Directives occurred with: Patient Care Teams Merchandise Stocker Relationship Specialty Start Date End Date Lana Eden MD [address] [facility] [place], [place] [address] PCP - General Internal Medicine 12/04/20 documented as of this encounter
--- OUTSIDE RECORDS SUMMARY | 2024-02-20 11:46 | External Medical Summary | Summary of Care ---
Author Name Unknown Organization [facility] Address [address] [place] [address] Phone [phone] Care Team Providers Care Assembler Finger Buffs Name Role Phone Lana Eden MD Primary Care Provider [phone] Reason for Visit * Auth/Cert Specialty Diagnoses / Procedures Referred By Contaura t Referred To Contact Diagnoses Paraesophageal hiatal hernia Paraesophageal hiatal hernia [K44.9] Procedures PARAESOPHAGEAL HERNIA REPAIR, LAP W/O MESH PARAESOPHAGEAL HERNIA REPAIR, LAP W/ MESH EGD, FLEXIBLE, DIAGNOSTIC LAPAROSCOPIC PARAESOPHAGEAL HERNIA REPAIR WO/ MESH LAPAROSCOPIC PARAESOPHAGEAL HERNIA REPAIR W/MESH ESOPHAGOGASTRODUODENOSCOPY (EGD), FLEXIBLE, TRANSORAL, DIAGNOSTIC Chrisotphe Henriquez MD [address] [place] [address] Or [facility] [address] [place] [address] Referral ID Status Reason Start Date Expiration Date Visits Re quested Visits Authorized [id number] Encounter Details Date Type Department Care Team (Latest Contact Info) Description 11/28/2023 9:44 AM EDT - 11/29/2023 11:31 AM EDT Hospital Encounter [facility], [facility] [address] [place] [address] Christophe Henriquez MD [address] [place] [address] Pt Handout (on AVS) Discharge Disposition: Home - Self Care Allergies [...] as of this encounter (statuses as of 11/29/2023) Medications Medication Sig Dispensed Refills Start Date [...] rhinitis, unspecified seasonality, unspecified trigger Administer 1 [place] into nostril in the morning and 1 [place] before bedtime. 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 07/30 [...] as of this encounter (statuses as of 11/29/2023) Resolved Problems Problem Noted Date Diagnosed Date [...] as of this encounter (statuses as of 11/29/2023) Immunizations Name Administration Dates Next Due COVID-19 [...] Past Smokeless Tobacco: Never Tobacco Cessation:Counseling Given: No Comments:quit summer Alcohol Use Standard Drinks/Week Comments [...] Sign Reading Time Taken Comments Blood Pressure 160/71 11/29/2023 7:51 AM EDT Pulse 87 11/29/2023 10:06 AM EDT Temperature 36.9 C (98.5 F) 11/29/2023 7:51 AM ED T Respiratory Rate 17 11/29/2023 7:51 AM EDT Oxygen Saturation 96% 11/29/2023 10:06 AM EDT Inhaled Oxygen Concentration - - Weight 95.3 kg (210 lb 3.2 oz) 11/29/2023 6:00 A M EDT Height 165.1 cm (5' 5") 11/29/2023 6:00 AM EDT Body Mass Index 34.98 11/29/2023 6:00 AM EDT documented in this encounter Functional [...] No 11/28/2023 documented as of this encounter Discharge Instructions * Discharge Instr - AVS* Jace Vick MD - 11/28/2023 1:45 PM EDT Discharge Date: 11/29/2023 If you have any questions during regular business hours (weekdays 8:00 AM to 4:30 PM), please contact the Bariatric Nurse Coordinator, Ja Nunn at [phone]. If you are unable to reach the nurse coordinator, contact the surgical clinic at [phone]. During non-business hours (weekdays before 8:00 AM and after 4:30 PM and on weekends) call [phone] and ask to speak to the MIS/Bariatric Fellow title i paraprofessional. If the Fellow is unavailable, ask for thesurgical resident title i paraprofessional. If the rn surgical is unavailable, ask for the attending MIS/Bariatric surgeon title i paraprofessional. If you are still unable to reach someone, ask the honing machine operator to call Dr. Christophe Henriquez. The information below provides you with the instructions and the list of medications you need to betaking following discharge from the hospital. If you have any questions, please ask before leaving.Please carry this letter with you when you see your doctor in the clinic. If you have questions, you can reach us at the numbers above. Brief summary of your inpatient care: You were admitted to [facility] on 11/28/2023 for surgery. You tolerated the operation well, had adequate pain control, and tolerated a diet before discharge. Your primary diagnosis at discharge was PARAESOPHAGEAL HERNIA Your doctors during this hospitalization included: - Dr Henriquez (MIS/ Bariatric Surgery) Inpatient test results pending: None Operations & Procedures: LAPAROSCOPIC PARAESOPHAGEAL HERNIA REPAIR WO/ MESH, LAPAROSCOPIC PARAESOPHAGEAL HERNIA REPAIR W/MESH, ESOPHAGOGASTRODUODENOSCOPY (EGD), FLEXIBLE, TRANSORAL, DIAGNOSTIC Complications: none Advance Directive Documented: Advance Directive Does the Patient have an Advance Directive? No ANTICOAGULATION: RESTART TAKING ELIQUIS ON 12/02/2023 Diet: 11/28/2023 - 12/01/2023: esophageal surgery clear liquid diet (3 days post surgery) 12/02/2023 - 12/09/2023: esophageal surgery full liquid diet. ( 1 week); restart taking Eliquis on 12/02/2023 Starting 12/10/2023: mechanical soft Modified consistency diet Take capsules with warm water. Cut all larger pills in half ( and take both halves) except long acting medications and capsules When on soft diet, chew each bite for 20-30 seconds. No bread or chunky meat. If you feel nauseous or you are vomiting, do not advance diet until symptoms resolve. Avoid use of straws, carbonated beverages, citrus juice and tomato juice You will be on Modified consistency mechanical soft diet for 4 weeks. Example for Clear liquid diet (any liquid that you can see through or when melted can be seen through): water, ice pops, broth, jello, tea or coffe without cream, and apple juice. Example for Full liquid diet: Puddings, custards, yogurt (without fruit chunks), cream soups (without chunks of meats or vegetables), cream of wheat, protein drinks and smooth ice cream. Activity: No strenuous activity for 4-6 weeks No lifting or pushing or pulling more than 10 lbs for 4-6 weeks Getting up and walking after surgery aids recovery in many ways. Much of the pain after major surgery is from muscle spasm. Getting out of bed, sitting and walking help you loosen up and actually reduce your pain. This also helps your breathing and quickens the recovery of your bowel function. Walking and using the stairs is permitted. You should try to get lots of rest. No deep bending and stretching. You should avoid full activity and vigorous exercise for about 4-6 weeks after surgery. Driving: Don't drive until you are off narcotics for one full week and can walk normally and firmlyapply the brake without pain. If you are still having pain with exertion or rapid movement, you should not drive. Date you may return to work or school: Based on further instruction reviewed by surgeon after follow up visit. See your primary care physician (Lana Eden MD) as needed. Special Instructions: Call the above phone numbers if you have any questions or concerns or if you experience any of the following: - Elevated temperatures of 101.5 degrees or greater - Persistent nausea and vomiting - Pus-like drainage or redness around the incision or wound - Pain that is not controlled with prescribed medications - Follow up with Dr. Ash on 12/12/23 Additional Instructions: - Take a stool softener while taking narcotic pain medication; hold for loose stools. - May shower, but do not scrub vigorously over the incisions. - Do not immerse the incision (for example, no swimming, no tub baths, no hot tubs). - DERMABOND surgical adhesive covers your incision. This will begin to fall off in about 2 weeks.Do not pick at the wound. Do not apply any ointment or lotion to the incision. --- documented in this encounter H&P Notes * Rikki Gallegos MD - 11/28/2023 10:14 AM EDT HISTORY & PHYSICAL INTERVAL NOTE - Bariatric Surgery [facility] [place]-[address] [address] History and Physical Update: Name: Harpreet Oneal Location: OR [facility]/OR Date: 11/28/2023 Time: 10:14 AM DATE OF HISTORY AND PHYSICAL: 11/28/2023 BP 144/67 | Pulse 105 | Temp 36.7 C (98.1 F) (Tympanic) | Resp 20 | Ht 1.651 m (5' 5") | Wt 91.5 kg (201 lb 12.8 oz) | SpO2 97% | BMI 33.58 kg/m | BSA 2.05 m Physical Exam: CV: normal heart sounds Chest: normal respiratory effort, lungs clear to auscultation and percussion Abdomen: normal: soft, bowel sounds normal, no masses, tenderness or organomegaly, incision intact without signs of infection or bleeding Did the patient stop their WENDY-I and/or Angiotensin Retention Ester at least 72 hours pre-op? Yes, patient has stopped taking Irbesartan Did the patient stop their SGLT2 Inhibitor at least 2 weeks pre-op? NOT applicable (patient on NO SGLT2 inhibitors) Did the patient stop the GLP-1 agonist at least one week preop? NOT applicable (patient on NO GLP-1agonists) Does the patient take a Beta Ester? YES, metoprolol succinate (Toprol XL), date and time of last dose - This morning 7:30 AM Did patient stop anticoagulants: Yes Has the patient been on high protein liquid diet for the last 2 weeks? N/A Did this patient require Tobacco abuse testing? No I have reviewed the H&P previously performed and examined the patient today. There are no new findings noted. * Greg Norwood MD - 11/24/2023 7:16 AM EDT Images from the original note were not included. [facility] "[facility]" AT [facility] CLINIC VISIT Date: 11/07/2023 Last Clinic Visit 10/09/2023 Harpreet Oneal [id number] 83 year old PCP: Lana Eden MD Consult requested by: Chet Bhagat DO CC: Harpreet Oneal comes to see me in [facility] ("[facility]") complaining of refractory gastroesophageal reflux disease. HPI 11/07/2023: Patient presents today for pre-op H&P for surgery on 11/28/23. Patient explains that his chronic fatigue has improved since last visit and has been weaning prednisone. He currently is taking 5mg of it. HPI 10/09/2023: History of colon cancer s/p recent resection July 2023, pT3pN0, Stage IIA. This patient has suffered from (Associated Signs and Symptoms) Dysphagia- patient doesn't describe dysphagiarather persistent abdominal pain Failure to thrive, and abdominal pain. Abdominal pain is occurringa few times per week. Patient has has experienced 20 lb weight loss. These have been present for about 1 year (Duration). Symptoms also include: Heartburn Score: 0 - None Gas Bloat Score: 0 - None Dysphagia Score: 2 - greater than once per week, requiring dietary modification Regurgitation Score: 1 - mild - after straining or large meal Nausea/Vomiting Score: 0 - none Diarrhea: 0 - none Extra-esophageal Manifestations: Chronic sore throat or mouth: 0 - no symptoms Ear pain: 0 - no symptoms Sinusitis: 0 - no symptoms Hallitosis: 0 - no symptoms Poor dentition: 0 - no symptoms Reflux Symptom Index Evaluation (0-5): Hoarseness or problem with voice: 0 Throat Clearin Excess throat mucus/post-nasal drip: 3 Difficulty swallowing food, liquid, pills: 2 Coughing after eating or lying down: 0 Breathing difficulties or choking episodes: 0 Troublesome or annoying cough: 2 Globus sensation: 0 Heartburn, chest pain, indigestion, or stomach acid coming up: 0 RSI Total Score: 12 GERD-HRQL Evaluation (0-5) Global heartburn severity: 1 Supine heartburn: 1 Upright heartburn: 1 Post-parandial heartburn: 1 Does heartburn require dietary modification? 2 Does heartburn awaken from sleep? 0 Difficulty swallowin Pain with swallowin Feelings of gassiness or bloatin Impact of taking medication on daily life:0 GERD-HRQL score: 8 QOLRAD completed: yes Does this patient have a suspected or established diagnosis of Achalasia? No Burping or belching YES, Normally Additionally, he experiences Fatigue, Sputum, constipation, unexpected weight loss, and anorexia. Most recently, He has been taking (Modifying Factor) NONE Is this patient on PPI therapy and using supplemental Calcium citrate? NO; The symptoms improve when eating less frequent meals Risk factors for GERD include Hiatal hernia Obesity DIETARY HISTORY: Low residual diet This patient denies any history of Dry cough, Dyspnea at rest, Dyspnea with exertion, Fatigue, Hematemesis, Hematochezia, Hemoptysis, Jaundice, Melena, Abelardo colored or light stools, Tea colored or dark urine, Productive cough, Sputum, Wheezing, Pain in the, diarrhea, exertional chest pain, and chest pain at rest. Previous DIAGNOSTIC TESTS include the following: Patient Name: Harpreet Oneal Procedure Date: 07/17/2023 9:38 AM Procedure: Upper GI endoscopy Procedure: Pre-Anesthesia Assessment: - Prior to the procedure, a History and Physical was performed, and patient medications, allergies and sensitivities were reviewed. The patient's tolerance of previous anesthesia was reviewed. - The risks and benefits of the procedure and the sedation options and risks were discussed with the patient. All questions were answered and informed consent was obtained. - Patient identification and proposed procedure were verified prior to the procedure by the physician, the nurse and the nutritionists. The procedure was verified in the procedure room. - Pre-procedure physical examination revealed no contraindications to sedation. - ASA Grade Assessment: III - A patient with severe systemic disease. - After reviewing the risks and benefits, the patient was deemed in satisfactory condition to undergo the procedure. - The anesthesia plan was to use general anesthesia. - Immediately prior to administration of medications, the patient was re- assessed for adequacy to receive sedatives. - The heart rate, respiratory rate, oxygen saturations, blood pressure, adequacy of pulmonary ventilation, and response to care were monitored throughout the procedure. - The physical status of the patient was re-assessed after the procedure. After obtaining informed consent, the endoscope was passed under direct vision. All instruments were visually inspected immediately before and after removal from the patient to ensure they are fully intact. Throughout the procedure, the patient's blood pressure, pulse, and oxygen saturations were monitored continuously. The [id number]-[id number] Endoscope ([id number]) was introduced through the mouth, and advanced to the third part of duodenum. The upper GI endoscopy was accomplished without difficulty. The patient tolerated the procedure well. Findings & Specimens: The upper third of the esophagus and middle third of the esophagus were normal. A mild Schatzki ring was found at the gastroesophageal junction. A guidewire was placed and the scope was withdrawn. Dilation was performed with a Savary dilator with no resistance at 54 Fr. The dilation site was examined following endoscope reinsertion and showed no change. Estimated blood loss was minimal. A medium-sized type-III paraesophageal hernia was found. The proximal extent of the gastric folds (end of tubular esophagus) was 31 cm from the incisors. The hiatal narrowing was 37 cm from the incisors. The Z-line was 31 cm from the incisors. The gastric body, incisura and gastric antrum were normal. The examined duodenum was normal. Impression: - Normal upper third of esophagus and middle third of esophagus. - Mild Schatzki ring. Dilated to 54 Fr today. - Medium-sized paraesophageal hernia. - Normal gastric body, incisura and antrum. - Normal examined duodenum. - No specimens collected. EXAM: CT CHEST W CONTRAST DATE and TIME: 07/30/2023 5:30 pm HISTORY CLINICAL INFORMATION: New diagnosis colon cancer - evaluate for metastatic disease TECHNIQUE CT of the chest was performed with intravenous contrast. Sagittal and coronal reformats were obtained. COMPARISON CT chest 10/20/2020. FINDINGS LUNGS, PLEURA: Patent central airways. Mild emphysema. No suspicious pulmonary nodule.. No pleural effusion or pneumothorax. CARDIOVASCULAR, MEDIASTINUM, THYROID: Normal heart size. No pericardial effusion. Coronary artery calcifications/stent. Normal caliber of the thoracic aorta and main pulmonary artery. The thyroid gland is unremarkable. LYMPH NODES: No lymphadenopathy. SKELETON, CHEST WALL: Degenerate changes of the visualized spine. Few mild chronic compression deformities. No suspicious osseous lesion. No chest wall abnormality. VISUALIZED UPPER ABDOMEN: Moderate size hiatal hernia, unchanged. Abnormal wall thickening/colonic mass at the splenic flexure, grossly unchanged. IMPRESSION IMPRESSION No evidence of metastatic disease in the chest. Current Outpatient Medications Medication Sig Dispense Refill [...] 0.1 % Nasal Solution (Astelin) Administer 1 [place] into nostril in the morning and 1 [place] before bedtime. 90 mL 3 Furosemide 20 [...] Release Take 2 Tablets by mouth daily. 90 Tablet 3 predniSONE 10 MG Oral Tablet (Deltasone) Take 1 Tablet by mouth in the morning. Taking 7.5 mg dailynow. No current facility-administered medications for this visit. Allergies as of 11/07/2023 - Reviewed 10/24/2023 Allergen Reaction Noted Codeine 01/05/2020 Synthroid [levothyroxine sodium] Hives and Rash 10/01/2010 Augmentin [amoxicillin-pot clavulanate] 02/23/2019 Hydrocodone bit-homatrop mbr 08/27/2016 Past Medical History: Diagnosis Date Colon polyps 12/11/2011 DM2 (diabetes mellitus, type 2) (HCC) Dyslipidemia, goal LDL below 160 HTN, goal below 140/90 Hypogonadism in male 10/30/2020 Impacted cerumen 2004 Sensorineural hearing loss, bilateral 2004 SVT (supraventricular tachycardia) (HCC) Vertigo 2004 Past Surgical History: Procedure Laterality Date COLONOSCOPY 2001 [place]/10 years follow up COLONOSCOPY, DIAGNOSTIC (RECTUM) 09/03/2017 adenomatous polyp, diverticulosis/[facility] COLONOSCOPY, DIAGNOSTIC (RECTUM) 07/17/2023 COLONOSCOPY FLEXIBLE PROXIMAL DIAGNOSTIC performed by Chet Bhagat DO at ENDOSCOPY [facility] EGD, FLEXIBLE, DIAGNOSTIC 02/10/2019 acid reflux, hiatal hernia, repeat 2 mo / [facility] EGD, FLEXIBLE, DIAGNOSTIC 05/11/2019 acid reflux, hiatal hernia / [facility] EGD, FLEXIBLE, DIAGNOSTIC 07/17/2023 ESOPHAGOGASTRODUODENOSCOPY (EGD), FLEXIBLE, TRANSORAL, DIAGNOSTIC performed by Chet Bhagat DOat ENDOSCOPY [facility] LAPAROSCOPIC COLECTOMY PARTIAL WITH ANASTOMOSIS N/A 08/05/2023 LAPAROSCOPIC PARTIAL COLECTOMY WITH ANASTOMOSIS performed by Best Shelley MD at OR [facility] MISCELLANEOUS ORDER ([facility] ONLY) 10/08/2019 skin lesion removed left forehead REMOVE CATARACT, INSERT LENS PROSTH 2018 bilateral Psychosocial Psychosocial Impairment NO History Depression NO History Confirmed Mental Health Diagnosis NO History EtOH Use Non-drinker Tobacco Use Non- smoker Substance Abuse None EMPLOYMENT; Retired. Family History Problem Relation Name Age of Onset Cancer Mother melanoma Neurological Disorder Father Parkinson's Other (Other) Father AAA No Known Problems Sister Other (Other) Grandfather (Paternal) AAA Melanoma Aunt (Maternal) Melanoma Uncle (Maternal) Glaucoma Uncle (Paternal) REVIEW OF SYSTEMS: Complains of ... NONE Does not experience ... hives or skin sensitivity, fevers, chills, unexplained weight loss/gain, rashes/itching, change in hair or nails, changes in vision/double vision, change in hearing or ear pain, dizziness, frequent nosebleeds, postnasal drip, chronic sore throat, hoarseness, dysarthria, TIA/S troke, temporary blindness, extremity paresthesia, weakness or paralysis, significant headaches, seizures, chest pain at rest, exertional chest pain, heart racing/arrhythmia, shortness of breath, dyspnea on exertion, productive cough, hemoptysis, melanic stool, hematechezia, change in stool caliber, hematemesis, hematuria, dysuria, musculoskeletal pain, anxiety, depression, memory problems, change in mood, diabetes mellitus, thryoid disorders, adrenal disorders, increased appetite or thirst, excessive sweating, blood clotting abnormalities, h/o deep venous thrombosis or pulmonary embolism, and easy bruising or bleeding PHYSICAL EXAM: 11/07/2023:Blood pressure 135/69, pulse 85, temperature 36.3 C (97.4 F), height 1.651 m (5' 5"),weight 93.7 kg (206 lb 8 oz), SpO2 98%., Body mass index is 34.36 kg/m. General: Alert and appropriate. Well-appearing and in no distress Skin: Warm, dry, anicteric Lymphatics: No neither Axillary nor Supraclavicular nor Cervical nor Infraclavicular nor Inguinal nor Umbilical adenopathy HEENT: PERRLA, EOMI, Sclera clear, anicteric, Oropharynx clear, no lesions, Neck supple with midline trachea, and Thyroid without masses Chest/Lungs: Clear Auscultation, No Wheezes, No dullness to percussions, and Chest Wall without masses Scars include None Breast: No Not examined Cardiovascular: Cor RRR and No murmurs Abdomen: No Distention, No Hernias, No Masses, No Organomegaly, No Tenderness, and Wounds well healed Scars include None Rectal/Genital: Not examined Neurologic: No motor abnormalities, No sensory abnormalities, and Cranial Nerves intact Musculoskeletal: Normal ROM and Normal strength and tone Extremities: Warm and well perfused, No cyanosis, No clubbing, and No edema ECOG Performance Status (0) Fully active, able to carry on all predisease performance without restriction Currently lives independently at home Impression: 1) Symptomatic paraesophageal hernia The primary symptoms that this patient would like to see resolution or improvement of are chest pain Our PLAN is to Recommend the following ... Refrain from ... Caffeine use Medications should include ... Prilosec Do not eat within two hours of bedtime or sleeping Schedule to following diagnostic tests Esophageal manometry- Patient refused Recommend that patient obtain CBC with diff, BMP, and albumin after today's visit - patient refused Path Review: None The following surgical procedure(s)which has/have been scheduled for 11/28/23 Laparoscopy; Repair Paraesophageal Hernia; for hiatal hernia repair; The following, risks, complications, have been discussed with the patient who seems to understand and agrees to proceed. They are contingent on the safety of the primary surgery as listed above. Patricia/Paraesophageal Hernia: Relevant treatment options (medical, endoscopic, and surgical) have been discussed with the patient. The purpose, potential benefits and risks of anti-reflux/hiatal hernia surgery have been extensively discussed with the patient no promises or guarantees have been given regarding improvement or resolution of the patient's symptoms. The following risks have all been addressed with the patient and all questions have been answered at this time: Potential for conversion to open operation Bleeding possibly requiring tranfusion or return to the operating room Infections of the: wounds, bloodstream, abdominal cavity, or pneumonias Esophageal, gastric injury, injury to adjacent structures including spleen (including remote potential for splenectomy) due to trocar placement or surgical manipulation, possibly requiring return to the operating room Vagal nerve injury potentially leading to various gastrointestinal symptoms including nausea, poor stomach emptying, diarrhea, and bloating Potential need for complex procedures in the event that complicated pathology is encountered (i.e. gastroplasty) Post-fundoplication side effects including bloating, diarrhea, inability to vomit, inability to belch or decreased ability to belch, dysphagia requiring endoscopic or surgical treatment. In rare circumstances, post-operative symptoms do not have a readily identifiable cause and can thus be difficult to manage Acute gastric distention after surgery potentially requiring naso-gastric tube placement or gastrostomy tube placement Failure to resolve symptoms and potential for future recurrence of symptoms possibly requiring re-operation Recurrence of Hiatal Hernia/Para-esophageal Hernia, or development of a new hiatal hernia Indication for use and risks associated with prosthetics (biological and non- biologic) including erosion and infection Potential life threatening complications including deep vein thrombosis, pulmonary embolism, myocardial infarction or other serious heart related complication, serious pulmonary complications including pneumothorax, stroke, up to and including related to surgery. The patient voices understanding and all questions have been answered to the patient's satisfaction. Preoperative PROVEN RECOVERY Pathway Instructions and Plan: 1) Diet: Patient should drink a 20-24 oz sports drink the evening before surgery. 2) Medications: Follow instruction from preadmission testing visit. 3) Following prescriptions will be given today Acetaminophen Zofran 4) Jazmine-operative multi-modal pain Control to include: Order APAP (Tylenol) 975mg PO once Celecoxib (Celebrex) 400mg PO once (Do not use if GFR less than 60, ASA Allergy, or if using Ketorolac) Gabapentin as indicated 5) Hold anticoagulants: Other Apixiban. 6) PreOp EKG? Yes age >45, ordered today 7) VTE Risk: Does the patient have any of the following contraindications to VTE Prophylaxis? No contraindications to VTE prophylaxis 8) DVT/PE Risk; The patient has each of the following risk factors: Surgery (anticipated equal to or greater than 2 hours), Obesity (BMI greater than 30), and Age greater than 75. How many VTE risk factors are present? 3 VTE Risk Factors (10 days extended VTE prophylaxis indicated) 9) If NO contraindications to VTE Prophylaxis then will plan on Lovenox 30 mg prior to Surgery, Knee High SCD's, and Other, Resume anticoagulation following surgery 10) Order Preop DVT Prophylaxis: Knee high teds, SCD Stockings with teds, and Enoxaparin 30 mg subcutaneously on arrival to hospital 11) Order Preop Antibiotics: Ancef 3 gm IV to be infused within one hour of incision time. 12) Is the patient on a Beta Ester? No 13) Order Perioperative Stress Dose Steroids: NO 14) Order Perioperative SBE prophylaxis (See Smart Set #[id number]): NO 15) Pacemaker clinic evaluation perioperatively: NO 16) Bring own CPAP/BiPAP mask and tubing from home if desired: NO 17) Clip and prep surgical site: NO 18) Preop orders placed in EPIC with H&P: YES 19) Pre-anesthesia orders placed:YES 20) Consent completed: YES; Date 10/09/23 21) Patient instruction sheet completed: YES 22) Is the patient being considered for Ambulatory Surgery (Same Day Discharge)? No. I spent a total of 20-29 minutes (exact time 22 mins) on the date of service in preparation, delivery, and documentation of the care provided to Harpreet Oneal excluding any time spent in the performance of separately billed services or time spent by another provider/QHP. Cristiane Enriquez PA-C Bariatric and Foregut Surgery [facility] 11/07/2023 Associated attestation - Christophe Henriquez MD - 11/25/2023 7:57 AM EDT I saw and evaluated the patient 11/24/23. I have reviewed the resident/fellow physician note and agree. documented in this encounter Nursing Notes * Juany Skaggs RN - 11/29/2023 10:45 AM EDT VIRTUAL RN [address] [id number] Name: Harpreet Oneal Location: [facility] [place] [facility] G210/A Date: 11/29/2023 Time: 10:45 AM I completed the Discharge Navigator. The patient was in the hospital. I was not in a hospital or clinic location. After connecting through [employer], the patient was identified by name and date of and / or wristband checked. Patient (or authorized legal inbound call center representative) was then informed that this was a Virtual Nurse visit and was being conducted confidentially over secure lines. I used a headset and other methods to ensure confidentiality for the patient. My office door was closed. No oneelse was in the room with me. Patient acknowledged consent and understanding of privacy and security of the Virtual Nurse visit. I presented the opportunity for the patient or authorized legal inbound call center representative to ask any questions regarding the visit today. The patient or authorized legal inbound call center representative agreed to participate. * Elenita Pritchard RN - 11/28/2023 10:53 PM EDT Pt refused his tyl 975, message sent to Drake Duarte, resident, waiting for reply * Elenita Pritchard RN - 11/28/2023 10:35 PM EDT Dual Licensed Skin Assessment completed by Elenita Pritchard RN and Moriah Palomo RN. The patient is/has a N/A Skin Breakdown (includes non blanchable erythema): No Pt has surgical incisions on abdomen, some scattered bruising present on bilat. arms * Elenita Pritchard RN - 11/28/2023 9:25 PM EDT Pt requesting some medication for nausea, message sent to resident, Drake Griffin, waiting or reply * Marina Perez RN - 11/28/2023 8:08 PM EDT VIRTUAL RN [address] [id number] Name: Harpreet Oneal Location: [facility] [place] G210/A Date: 11/28/2023 Time: 8:08 PM I completed the Admission Navigator. The patient was in the hospital. I was not in a hospital or clinic location. After connecting through [employer], the patient was identified by name and date of and / or wristband checked. Patient (or authorized legal inbound call center representative) was then informed that this was a Virtual Nurse visit and was being conducted confidentially over secure lines. I used a headset and other methods to ensure confidentiality for the patient. Patient acknowledged consent and understanding of privacy and security of the Virtual Nurse visit. I presented the opportunity for the patient or authorized legal inbound call center representative to ask any questions regarding the visit today. The patient or authorized legal inbound call center representative agreed to participate. TT sent to bedside nurse Moriah Henriquez RN noting completion of virtual admission with the exception for patient belongings, skin assessment, dysphagia screening and aggression scale. * Lyly Velásquez RN - 11/28/2023 5:41 PM EDT PERIOP TO IP HANDOFF COMMUNICATION NOTE [facility] [place] [address] Name: Harpreet Oneal AGE: [age] year old Location: PACU EXTEND [address] Date: 11/28/2023 Attention to: GP2RAdriana Morse RN Report from: Yoli Morgan RN Patient arriving via: Bed Time of call: 5:42 PM Phone Ext: [phone] Reason for SBAR (Situation, Background, Assessment, Recommendation) handoff: Admission Sending to: GP210 Emotional/Personal Events & Special Needs: n/a Prescriptions in chart: No Code Status: Full Code Safety Concerns: no safety concerns identified Allergies: Codeine, Synthroid [levothyroxine sodium], Augmentin [amoxicillin-pot clavulanate], and Hydrocodone bit-homatrop mbr PMH: Past Medical History: Diagnosis Date Colon polyps 12/11/2011 DM2 (diabetes mellitus, type 2) ([facility]) Dyslipidemia, goal LDL below 160 HTN, goal below 140/90 Hypogonadism in male 10/30/2020 Impacted cerumen 2004 Sensorineural hearing loss, bilateral 2004 SVT (supraventricular tachycardia) ([facility]) Vertigo 2004 PSH: Past Surgical History: Procedure Laterality Date COLONOSCOPY 2001 [place]/10 years follow up COLONOSCOPY, DIAGNOSTIC (RECTUM) 09/03/2017 adenomatous polyp, diverticulosis/[facility] COLONOSCOPY, DIAGNOSTIC (RECTUM) 07/17/2023 COLONOSCOPY FLEXIBLE PROXIMAL DIAGNOSTIC performed by Chet Bhagat DO at ENDOSCOPY [facility] EGD, FLEXIBLE, DIAGNOSTIC 02/10/2019 acid reflux, hiatal hernia, repeat 2 mo / [facility] EGD, FLEXIBLE, DIAGNOSTIC 05/11/2019 acid reflux, hiatal hernia / [facility] EGD, FLEXIBLE, DIAGNOSTIC 07/17/2023 ESOPHAGOGASTRODUODENOSCOPY (EGD), FLEXIBLE, TRANSORAL, DIAGNOSTIC performed by Chet Bhagat DOat ENDOSCOPY [facility] LAPAROSCOPIC COLECTOMY PARTIAL WITH ANASTOMOSIS N/A 08/05/2023 LAPAROSCOPIC PARTIAL COLECTOMY WITH ANASTOMOSIS performed by Best Shelley MD at OR [facility] MISCELLANEOUS ORDER ([facility] ONLY) 10/08/2019 skin lesion removed left forehead REMOVE CATARACT, INSERT LENS PROSTH 2018 bilateral Isolation: Isolation: Procedure: Operation: 1) Laparoscopy; Repair Paraesophageal Hernia; for hiatal hernia repair; 2) Laparoscopy; Gastropexy 3) Upper GI Endoscopy, simple primary examination Surgeon: Christophe Henriquez MD Level: Attending; Bariatric Surgeon Assistants: MD Rikki Polk MD A qualified resident was not available. My Actuarial Associate was necessary throughout the procedure(s) for retraction and visualization. I understand that section 1842 (b)(7)(D) of the Social Security Act generally prohibits Medicare physician fee schedule payment for the services of [id number]-[id number] in teaching hospitals when qualified residents are available to furnish such services. I certify that the services for which payme nt is claimed were medically necessary, and that no qualified resident was available to perform theservices. I further understand that these services are subject to post-payment review by the Medicare carrier. ASA: ASA Physical Status 3 - A patient with severe systemic disease Anesthesia:General endotracheal anesthesia Transversus Abdominus Plane Block by surgeon 60 ml of 0.25 % marcaine with Epi was diluted in 60 ml of injectable saline. 60 ml of this solution was injected on each side. The injection was in the transverses abdominus fascial plane laparoscopic guidance in the subcostal region and then continuing inferiorly along the anterior axillary line to the level of the umbilicus or lowest port. IVF; 2400 ml Crystalloid Urine output: N/A Estimated Blood Loss: 5 ml OPERATIVE TIME: 140 mins Findings: Type 3 Hiatal Hernia with 70% of stomach within mediastinum Diastasis of Crura: 4 cm Specimen: Frozen: NONE Permanent: NONE Drains: NONE Incision location: abdominal Dressing location: abdominal Pressure injuries or areas of concern: none Lines: Peripheral Line Lower;Right Arm 20 Gauge (Active) Status Capped/Locked;Flushes easily;Alcohol disinfectant cap;Cap changed 11/28/23 1500 Tubing Changed N/A 11/28/23 1500 Phlebitis Scale 0 11/28/23 1500 Infiltration Scale 0 11/28/23 1500 Site Description (Other) Without redness, swelling or drainage 11/28/23 1500 Site Intervention Flushed 11/28/23 1500 Dressing Assessment Dressing clean, dry, and intact;Transparent dressing 11/28/23 1500 Dressing Intervention None required 11/28/231499 Number of days: 0 Peripheral Line Left Hand 18 Gauge (Active) Status Flushes easily;Fluids infusing 11/28/231499 Tubing Changed No 11/28/231499 Phlebitis Scale 0 11/28/231499 Infiltration Scale 0 11/28/231499 Site Description (Other) Without redness, swelling or drainage 11/28/231499 Site Intervention Flushed 11/28/231499 Dressing Assessment Dressing clean, dry, and intact;Transparent dressing 11/28/231499 Dressing Intervention None required 11/28/231499 Number of days: 0 Vital Signs: BP: 136/68 (11/28/23 1600) Temp: 36.2 C (97.2 F) (11/28/23 1700) Pulse: 79 (11/28/231599) Resp: 15 (11/28/23 1600) SpO2: 98 % (11/28/231599) O2 flow rate: 0 L/MIN (11/28/23 154) Glucose (Bedside): 228 (11/28/23 1454) Time of last pain medication: 1510 Med: Dilaudid Time of last antibiotic: 1145 Med: Ancef Time of last antiemetic: n/a Med: n/a CAN CLEANER: no Drips: no Neurological: Speech: Clear (11/28/23 154) Level of Consciousness: Alert (11/28/23 154) RUE Motor Strength: 5-Active movement with full resistance (11/28/23 154) RLE Motor Strength: 5-Active movement with full resistance (11/28/23 154) LUE Motor Strength: 5-Active movement with full resistance (11/28/23 154) LLE Motor Strength: 5-Active movement with full resistance (11/28/23 154) Coma Score: 15 (11/28/23 1600) Respiratory: Respiratory WNL: WNL- within normal limits (11/28/23 154) Depth/Rhythm: Regular (11/28/23 154) Dyspnea Occurance: None (11/28/23 154) Effort: Unlabored (11/28/23 1430) Oxygen therapy/ Mechanical vent Supplemental O2 Delivery: Room Air, None (please see notes for additional details) (11/28/23 1600) O2 flow rate: 0 L/MIN (11/28/231544) Cardiac: Cardiovascular WNL: X - Exceptions to WNL as documented below (11/28/231544) Heart Sounds: S1;S2 (11/28/231544) Rhythm: (sinus arrythmia) (11/28/231544) Extremities: +Sensation;Right;Left;Upper;Lower;Levan;Warm (11/28/23 154) Pulses Right: Dorsalis Pedis + (11/28/23 1430) Pulses Left: Dorsalis Pedis + (11/28/23 1430) Edema Location: Lower extremities (11/28/23 1014) Edema Assessment: +2 - Description (11/28/231429) Capillary Refill: 2 sec (11/28/231429) GI: GI WNL: X - Exceptions to WNL as documented below (11/28/231544) Abdomen: Soft;Bowel sounds present all quadrants (11/28/231544) : WNL: X - Exceptions to WNL as documented below (no urine to assess) (11/28/231544) Due to Void: 2030, 6hrs Integumentary:Integumentary WNL: X - Exceptions to WNL as documented below (11/28/231544) Skin Description: Dry;Warm (11/28/231544) Skin Color: Flesh Tone (11/28/231544) Skin Lesion: Other - Describe (see below) (11/28/231544) Family updated on transfer: yes Additional Assessment Information: Pt. desaturates while sleeping. Service made aware and Dr Greg Norwood requests to place oxygen on patient at hs and may increase to appropriate saturations prn. * Lyly Velásquez RN - 11/28/2023 4:52 PM EDT Patient appears to have significant sleep apnea - he has dropped his sats three times to 58-68% with perfect waveform upon sleep - he immediately rebounds upon awakening and administration of oxygen.Dr Greg Norwood made aware of same. * Lyly Velásquez RN - 11/28/2023 4:00 PM EDT Dual Licensed Skin Assessment completed by parth and Xenia ARRIAGA. The patient is/has a N/A Skin Breakdown (includes non blanchable erythema): Yes - Surgical/Procedural changes only. Patient Harpreet Oneal, verbalized understanding that a pressure injury is anticipated due to the following risk factors: other: surgical procedure , despite pressure injury prevention measures of turn and repositioning and pillows and/or wedges being in place or due to patient's refusal/inability to comply with preventive measures. The areas at risk include but are not limited to the sacrum, bony prominences, heels, . Education was provided about patient's condition and treatment as well as unit standards for turning, repositioning, and skin care. * Yoli Morgan RN - 11/28/2023 10:49 AM EDT Dual Licensed Skin Assessment completed by Yoli Olivo and Keely Perdue. The patient is/has a N/A Skin Breakdown (includes non blanchable erythema): No documented in this encounter OR Notes * OR Surgeon - Christophe Henriquez MD - 11/28/2023 2:10 PM EDT [facility] [facility] [address] [facility] [id number] OPERATIVE REPORT Name: Harpreet Oneal Date: 11/28/2023 Time: 2:11 PM Location: OR [facility] [place] Service: Minimally Invasive Surgery Date of Operation: 11/28/2023 Pre-op Diagnosis: Paraesophageal Hernia Post-op Diagnosis: Same Patient Active Problem List Diagnosis ADVANCE DIRECTIVE [...] pulmonary emboli without acute cor pulmonale (HCC) 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 My Actuarial Associate was necessary throughout the procedure(s) for retraction and visualization. I understand that section 1842 (b)(7)(D) of the Social Security Act generally prohibits Medicare physician fee schedule payment for the services of [id number] in teaching hospitals when qualified residents are available to furnish such services. I certify that the services for which payme nt is claimed were medically necessary, and that no qualified resident was available to perform theservices. I further understand that these services are subject to post-payment review by the Medicare carrier. ASA: ASA Physical Status 3 - A patient with severe systemic disease Anesthesia:General endotracheal anesthesia Transversus Abdominus Plane Block by surgeon 60 ml of 0.25 % marcaine with Epi was diluted in 60 ml of injectable saline. 60 ml of this solution was injected on each side. The injection was in the transverses abdominus fascial plane laparoscopic guidance in the subcostal region and then continuing inferiorly along the anterior axillary line to the level of the umbilicus or lowest port. IVF; 2400 ml Crystalloid Urine output: N/A Estimated Blood Loss: 5 ml OPERATIVE TIME: 140 mins Findings: Type 3 Hiatal Hernia with 70% of stomach within mediastinum Diastasis of Crura: 4 cm Specimen: Frozen: NONE Permanent: NONE Drains: NONE Endostaplers: 0-NONE INTRAOP ADVERSE EVENTS/COMPLICATIONS; NONE Indications and History: The patient is a 83 year old male with paraesophageal hernia. The risks, benefits, complications, treatment options, and expected outcomes were discussed with the patient. The possibilities of reaction to medication, pulmonary aspiration, misplacement of the tube, injury to the bowel, bladder or blood vessels; and creating a complication requiring transfusion or operation were discussed with the patient who freely signed the consent. The patient concurred with the proposed plan, giving informedconsent Description of Operation: The patient was seen in the Holding Room and the site of surgery properly noted/marked. The patientwas taken to Operating Room [facility] OR 10, identified as Harpreet Szymanskizulay and the procedure verified as Laparoscopic Repair Of Paraesophageal Hernia; Possible Laparoscopic Amada Gastroplasy with partial g astrectomy; Laprascopic Fundoplication; Esophagogastroscopy; Possible OPEN Incision. The patient was identified and the procedure and site were verified. A Time Out was held and the above information confirmed. Time Out: Patient Identified; Yes Antibiotics Ancef 2 gm IV DVT Prophylaxis subQ Lovenox 30 mg Teds Knee High SCD Stockings Thigh High Allergies confirmed Yes Postion SUPINE Lateralization NONE Special Equipment Confirmed Yes Implant of foreign object: No Explant of foreign object: No Prep is dry: Yes Blood glucose: Insulin drip started in Intra Op The patient was taken to the Operating Room and placed in the supine position. 1) Upper Endoscopy: After satisfactory general endotracheal anesthesia, an endoscope was inserted through the oropharynx into the upper esophagus. The endoscope was passed into the stomach to the level of the pylorus and then retroflexed and the gastroesophageal junction was inspected. Esophageal findings include... Upper: Normal Esophageal Mucosa Middle:Normal Esophageal Mucosa Distal: Normal Esophageal Mucosa Z line 38 cm from teeth Gastric findings include... No gastric or esophageal injuries 2) Abdominal Cavity Access Laparoscopic The skin was infiltrated with local anesthetic and an incision was made. Initial entryinto the peritoneal cavity was made with Visual access port port in the Left Epigastric and insufflated the abdomen to 15 mm of pressure. Under direct vision, we then placed additional ports. Right Epigastric Applied 8 mm Left Epigastric Applied 12 mm Right Subcostal Applied 5 mm Left Subcostal Applied 5 mm Right Flank NONE Right Lower Quadrant NONE Periumbilical NONE 3) Mobilization and Gastroplasty A liver retractor which was used to elevate the left lobe of the liver. We began our dissection by dividing the pars flaccida sacrificing the hepatic branch of the anterior vagus nerve and then mobilizing the esophagus at the right jewel identifying the junction with the left jewel posterior to the esophagus. We then divided the phrenoesophageal membrane anteriorly. The hernia sac was mobilized from the right paraesophageal mediastinum with gentle traction. The sac was incised along the right jewel and anteriorly along the arcuate ligament reducing the peritonealfat and sac. The dissection was continued posterior to the esophagus and the junction between the right and left crura was identified posteriorly. The short gastric vessels along the greater curvature through the splenic hilum up to the level of the left jewel were divided. The esophagus was freed from the left jewel and the hernia sac incised. Similar dissection in the left paraesophageal mediastinum reduced the herniated stomach and peritoneal fat. The esophagus was now circumferentially mobilized at the hiatus. We turned out attention to the gastroesophageal fat pad which was mobilized from lateral to medial off the gastroesophageal junction creating a retroesophageal window inside both the anterior and posterior vagus nerves. Both the anterior and posterior vagus nerves were well visualized and preserved. The gastroesophageal junction was carefully inspected and with extensive mediastinal mobilization the gastroesophageal junction was 3 cm below the hiatus indicating adequate esophaghageal length. 4) Cruroplasty The crura was then closed posterior to the esophagus with interrupted 0-0 Silk within about 5 mm ofthe esophagus. The left hemidiaphragm was mobilized from the hernia sac and adhesions to minimize tension. No mesh was used in the crural repair. The fundus of the stomach was sutured to the anterior abdominal wall with a 2-0 Stratofix. The liver retractor was removed. All ports and insufflation were removed. The subcutaneous was irrigated, and the skin was closed with 4-0 Monocryl and dressed All counts were correct. The patient tolerated the procedure well, was extubated in the Operating Room, and taken to the PACU in STABLE condition. Attestation: I was present and scrubbed for the entire procedure cc: Professional Reimbursement and Compliance Christophe Henriquez MD, FACS, [facility] [employer] [facility] Minimally Invasive/ Bariatric Surgery Fellowship documented in this encounter Miscellaneous Notes * Pt Handout (on AVS) - Sherlyn Norwood RN - 11/29/2023 9:55 AM EDT 69 Hiatal Hernia Repair What is a hiatal hernia repair? A hiatal hernia is an abnormal bulging in your belly (abdomen). It happens when part of your stomach pushes up into an opening (hiatus) in your diaphragm. The diaphragm is a muscle between your stomach and your chest. In most cases, your food pipe (esophagus) goes through the hiatus opening down to your stomach. Butin a hiatal hernia, the upper part of your stomach moves up through the opening into your chest. The upper part of your stomach then gets pinched. Stomach acid can flow up through the opening. This can cause heartburn and other symptoms, such as regurgitation and trouble swallowing. You may not need surgery. But if your case is serious, you will need a hiatal hernia repair. This is often done through laparoscopic surgery. In laparoscopic surgery, your healthcare provider makes small cuts (incisions) in your body. They put a long, thin tube (laparascope) that has a camera and small surgical tools into the cuts to repair the hernia. In some cases, you may need open (traditional) surgery to repair your hiatal hernia. Why might I need a hiatal hernia repair? A hiatal hernia repair is a serious surgery. You will need some time to recover after the surgery. Your healthcare provider will suggest this surgery if you have a hiatal hernia and long-term (chronic) heartburn and other symptoms. They will try other things before doing surgery. What are the risks of a hiatal hernia repair? Laparoscopic surgery is a safe surgery. But all surgeries have risks. The risks of a hiatal hernia repair include: Internal bleeding Infection Damage to nearby organs Postoperative symptoms, such as trouble swallowing, trouble belching, or acid reflux How do I get ready for a hiatal hernia repair? Your healthcare provider will explain the surgery to you. Be sure to ask any questions you may have. Tell your healthcare provider about all the medicines you take. This includes lfro-tnd-wxoycac medicines, such as ibuprofen. It also includes vitamins, herbs, and other supplements. You will be asked to sign a consent form that gives your permission to do the surgery and get anesthesia. Read the form carefully and ask questions if something is not clear. Your healthcare provider will ask questions about your past health. They will also do a physical exam. This is to be sure you are in good general health before having the surgery. You may also have blood tests or imaging tests. Tell your healthcare provider if you: Are or think you may be Are sensitive or allergic to any medicines, iodine, latex, tape, or anesthesia drugs (local and general) Have a history of bleeding disorders or are taking any blood-thinning (anticoagulant) medicines,aspirin, or other medicines that affect blood clotting (you may have to stop taking these medicinesbefore your surgery) You must not eat or drink anything for 8 hours before the surgery. This often means no food or drink after midnight. Your healthcare provider may have other instructions for you based on your medical condition. What happens during a hiatal hernia repair? Your healthcare provider will decide if you should have a laparoscopic surgery or an open repair. Laparoscopic surgery has smaller incisions and a shorter recovery time. A hiatal hernia repair is most often done while you are asleep under general anesthesia. Your healthcare provider will decide what kind of anesthesia to use. This will depend on the reason for the surgery and your overall health. Ask your healthcare provider about the details of your surgery. In general, you can expect the followin. You will be asked to take off any jewelry or other items that may be in the way during surgery. 2. You will be asked to take off your clothes and wear a hospital gown. 3. An IV (intravenous) line will be inserted in your arm or hand. This is so that you can be given fluids and medicines. 4. A thin tube (catheter) may be put into your bladder. This will help you to urinate safely duringsurgery. 5. You will be placed on your back on the operating table. 6. The anesthesiologist will keep checking your heart rate, blood pressure, breathing, and blood oxygen level during the surgery. 7. If you have too much hair at the surgical site, it will be clipped off. 8. The skin at the surgical site will be cleaned with an antiseptic solution. For a laparoscopic hiatal hernia repair, your healthcare provider will make small incisions in yourbelly. Carbon dioxide gas will be put into your belly to make it swell. This helps your healthcare provider see your organs more clearly. Then they will insert a tube that has a camera and surgical tools in it to repair the hernia. For an open repair, your healthcare provider will make a larger incision at the site of the hernia.They will then repair the hernia by hand, using surgical tools. Once the surgery is over, your healthcare provider will close the incisions. What happens after a hiatal hernia repair? After surgery, you will go to the postanesthesia care unit (PACU). Your healthcare team will watch your vital signs, such as your heart rate, blood pressure, and breathing. Your recovery will vary depending on the type of anesthesia you had. Once your blood pressure, pulse, and breathing are stableand you are alert, you will go to your hospital room. When you are home, you must keep the incisions clean and dry. Your healthcare provider will give you instructions on how to bathe. Any stitches or surgical jihan used will be removed at a follow-upoffice visit. If adhesive strips were used, they should be kept dry. They will often fall off in a few days. If you had a laparoscopic repair done, you may feel pain from the carbon dioxide gas that is still in your belly. This pain may last for a few days. You should feel a bit better each day. Your healthcare provider may let you take a pain reliever. But it's important to note that aspirin or other types of pain medicines may raise your risk of bleeding. So be sure to take only medicines that your healthcare provider has approved. You may be allowed to drink clear fluids a few hours after your surgery. You may slowly be able to add more solid foods. If you have nausea or vomiting afterwards, you will remain on liquids or stop eating for a time. Sometimes a tube is placed into the stomach to help with symptoms. You may need to limit activity after surgery, but it's still important to move. Your healthcare provider may also have other instructions for you. Call your healthcare provider if you have any questions about your recovery. Also call if you have any of the following symptoms: Fever or chills Redness, swelling, bleeding, or other drainage from the incision site More pain around the incision site Vomiting Trouble urinating Next steps Before you agree to the test or procedure make sure you know: The name of the test or procedure The reason you are having the test or procedure What results to expect and what they mean The risks and benefits of the test or procedure What the possible side effects or complications are When and where you are to have the test or procedure Who will do the test or procedure and what that person?s qualifications are What would happen if you did not have the test or procedure Any alternative tests or procedures to think about When and how will you get the results Who to call after the test or procedure if you have questions or problems How much you will have to pay for the test or procedure Last Reviewed Date: 11/12/202219991675-8702 [employer]. All rights reserved. This information is not intended as a substitute for professional medical care. Always follow your healthcare professional's instructions. * Ancillary Progress Note - Sarahi Edsonvitaliy Bauer, [employer] - 11/29/2023 1:59 AM EDT PATIENT DRIVEN PROTOCOL - Respiratory [facility] Services [address] [address] Name: Harpreet Oneal Location: [facility] [place] G210/A Date: 11/29/2023 Time: 2:00 AM Patient Driven Protocol Summary: Initial evaluation performed. This Treatment Plan and medications will be reviewed by the Primary Care Team for any contraindications. Respiratory Care Treatment Plan Pulmonary Volume Expansion Therapy: Incentive Spirometry PRN to prevent or treat alveolar consolidation and atelectasis. . The patient will be re-evaluated: No re-evaluation needed. Indications for treatment met. The Triage Level is: (Assessment Score = 6 -10) Level 4. Triage Level Definitions: Level 1 Severe Respiratory/Airway Compromise Level 2 Moderate Respiratory/Airway Compromise or high risk for pulmonary complications Level 3 Mild Respiratory/Airway Compromise or moderate risk for pulmonary complications Level 4 Episodic Respiratory/Airway Compromise or low risk for pulmonary complications Level 5 No Respiratory/Airway Compromise Triage 1 Triage 2 Triage 3 Triage 4 Triage 5 greater than 20 16 - 20 11 - 15 6 - 10 0 - 5 Medical Record Assessment Clinical Findings Pulmonary Status: 0 - No Smoking or quit greater than 10 years ago Surgical Status: 2 - Lower Abdominal Chest X-Ray: 0 - Not Performed or performed greater than 3 days ago Assessment Score: 2 Patient Assessment Clinical Findings Respiratory Pattern: 0 - RR 12 - 20; Patient only gets breathless with strenuous exercise. Breath Sounds: 2 - Diminished bilaterally Cough Effectiveness: 0 - Strong non-productive Sputum Production: 0 - No sputum production Level of Activity: 2 - Temporarily non-ambulatory O2 needed to keep SpO2 greater than or equal to 92%: 2 - Oxygen 4-6 LPM or FiO2 35-50% Assessment Score: 6 Total Assessment Score: 8 Breath Sounds: Inspiratory and expiratory diminished bilaterally.. Cough and Sputum: An effective cough produced no sputum... CXR: none. Vital Signs: Resp: 18 (11/29/2341) Pulse: 81 (11/29/2341) Temp: 36.4 C (97.6 F) (11/28/232001) BP: 144/74 (11/29/2341) SpO2: 98 % (11/29/2341) PFT: Minimal Predicted IC: .93 L. Inspiratory capacity: 1.5 L. Primary Service: Surgery Green. Admitting Diagnosis: Paraesophageal hiatal hernia [K44.9] Pulmonary Diagnosis: Hypertension. Prescriptions/Home Medications/Durable Medical Equipment: none. Recommended New home medications/durable medical equipment/outpatient pulmonary/sleep referral none. * Care Plan - Elenita Pritchard RN - 11/29/2023 1:36 AM EDT Clinical Goal(s): Pt will remain free from falls (11/28/23 2300) Possible barriers to meeting goal(s)/advancing plan of care: pt is in new environment, has assistive device, weak at times Stability of the patient: Moderately stable - low risk of patient condition declining or worsening Summary regarding today's goal(s): Met: pt did not experience a fall this shift Recommendations: pt will follow safety plan, will wear non slip footwear when OOB, will use assistive device when ambulating * Progress Notes - Non-Billable - Drake Griffin MD - 11/28/2023 3:18 PM EDT PROGRESS NOTE - Minimally Invasive Surgery [facility] [place]-[address] [address] Name: Harpreet Oneal Location: OR [facility] [place] Date: 11/28/2023 Time: 3:18 PM DIAGNOSIS: Paraesophageal hernia PROCEDURE: 1) Laparoscopy; Repair Paraesophageal Hernia; for hiatal hernia repair; 2) Laparoscopy; Gastropexy 3) Upper GI Endoscopy, simple primary examination DATE OF SURGERY: 11/28/23 POST OP DAY: Day of Surgery SUBJECTIVE: Feels well post-surgically with just slight nausea.Pain is well controlled. no fever or chills Cardiovascular: negative Pulmonary: negative Abdominal: mild abdominal pain, well controlled. Genitourinary: negative OBJECTIVE: Most Recent Vital Signs: BP: 126 mmHg/69 mmHg (11/28/23 1500) Pulse: 83 (11/28/23 1500) Resp: 14 (11/28/23 1500) Temp: 36.22 C (11/28/23 1430) Temp Summary: Temp Min: 36.2 C (97.2 F) Max: 36.7 C (98.1 F) SpO2: 100 % (11/28/23 1500) O2 flow rate: 3 L/MIN (11/28/23 1500) Supplemental O2 Delivery: Nasal Cannula (11/28/23 1500) Vital Signs Last 24 Hours: Systolic BP: Most Recent Systolic BP Av.2 mmHg Min: 125 mmHg Max: 144 mmHg Temperature: Most Recent Temperature Av.5 C Min: 36.22 C Max: 36.72 C Pulse: Pulse Av.9 Min: 78 Max: 105 Respirations: Resp Av Min: 11 Max: 27 SpO2: SpO2 Av % Min: 97 % Max: 100 % In / Out Past 24 Hrs: Intake/Output Summary (Last 24 hours) at 11/28/2023 1518 Last data filed at 11/28/2023 1411 Gross per 24 hour Intake 2400 ml Output -- Net 2400 ml Physical Exam: Constitutional: no acute distress CV: normal rate, normal rhythm Chest: normal respiratory effort, lungs clear to auscultation and percussion Surgical site: appropriately tender belly. and sutures intact Neuro: alert, oriented to person, place, and time Psych: normal mood and affect LABS: Labs reviewed as indicated below: Latest Reference Range & Units 11/28/23 10:48 11/28/23 13:29 11/28/23 14:38 Glucose Meter 70 - 120 mg/dL 143 (H) 236 (H) 228 (H) (H): Data is abnormally high IMAGING: No new results. IMPRESSION: Principal Problem: Paraesophageal hiatal hernia Resolved Problems: * No resolved hospital problems. * Harpreet Oneal is a 83 year old male who has a past medical history of , DM2, Dyslipidemia, SVT who is admitted s/p laparoscopic PEH repair and gastropexy ob 11/28/[address] Henriquez. PLAN: Diet: esophageal CLD IVF: isolyte @ 100 mL/hr DVT/PE ppx: anti-thrombotic stockings (OSEAS hose) and sequential compression devices (SCD's) Analgesia: Tylenol GI ppx: diet by mouth Nausea: Zofran PRN Labs: Daily Drains/Lines: PIV Jihan/Sutures: None Activity: Encourage OOB Respiratory: RPDP, IS, Flutter Home Medications: - Resumed: Prednisone, Diltiazem, Metoprolol, Atorvastatin, - Holding: Potassium chloride, Ondansetron, CoQ-10, NAC, Metformin, Irbesartan, Eliquis, Furosemide, B-12, Azelastine, Zinc, Magnesium, Vitamin K2, Vitamin D3, Calcium Carbonate- vitamin D, Iron documented in this encounter Plan of Treatment Upcoming Encounters Date Type Department Care Team (Late st Contact Info) Description 12/12/2023 2:00 PM EDT Office Visit General Surgery, [facility] [address] [facility] [place] [address] Anna Ash MD [address] [facility] [place] [id number] 01/06/2024 3:00 PM EDT Office Visit Hematology/Oncology [facility] [address] [facility] [place] [id number] Pepito Chiang MD [address] [facility] [place] [address] 02/24/2024 1:40 PM EST Office Visit Rheumatology [place] [id number] [facility] [place] [address] Niraj Shukla MD [facility] [place] [address] 04/22/2024 1:40 PM EST Office Visit General Internal Medicine [facility] [address] [facility] [place] [address] Lana Eden MD [address] [facility] [place], [place] [address] 05/19/2024 3:00 PM EST Telemedicine General Surgery, [place] [address] [place] [address] Best Shelley MD [address] [place], [place] [id number] 09/02/2024 2:00 PM EDT Office Visit Cardiology, [facility] [address] [facility] [place] [address] Billy Anthony PA-C [address] [place] [address] Scheduled Procedures Name Priority Associated Diagnoses Date/Ti me COLONOSCOPY FLEXIBLE PROXIMA L DIAGNOSTIC Recall History of colonic polyps Health Maintenance Due Date Last Done Comments COVID-19 Vaccine ( season) 2023 02/25/2023, 01/11/2022, 08/25/2021, Additional history exists Diabetic Foot Exam 11/06/2023 11/05/2022 (C hieu Completed), 08/09/2021 Influenza Vaccine (FLU shot) (#1) 2023 12/27/2022, 12/19/2021, 01/10/2021, Additional history exists Adult Wellness Visit 12/28/2023 12/27/2022, 10/12/19 21 Depression Screening 12/28/2023 12/27/2022 DTaP,Tdap,and Td Vaccines (3 - Td or Tdap) 12/30/2023 12/29/2013, 06/12/2005 HbA1c 05/09/2024 11/07/2023, 09/13, 07/28/2023, Additional history exists DXA Scan 05/29/2024 05/29/2022 Diabetic Eye Exam 07/14/2024 07/15/2023, , 07/15/2022, Additional history exists Albumin/Creatinine Ratio 10/09/2024 024, 12/13/2022, 11/13/2022, Additional history exists GFR 11/28/2024 11/29/2023, 10/13, 10/14/2023, Additional history exists Pneumococcal Vaccine: 65+ Years Completed 05/20/2017, 11/08/2015 Zoster Vaccines Completed 08/18/2019, 04/16, 06/12/2011 VITAMIN D LEVEL ONCE IN A LIFETIME-USE SMARTSET# [id number] Completed 02/10/2023, 11/20/2021, 05/08/2021 Hepatitis B Vaccine [...] Procedure Name Priority Date/Time Associated Diagnosis Comments GLUCOSE METER, POINT OF CARE MONIKA 11/29/2023 7:52 AM EDT BASIC METABOLIC PANEL Routine 11/29/2023 5:15 AM EDT CBC Routine 11/29/2023 5:15 AM EDT GLUCOSE METER, POINT OF CARE MONIKA 11/28/2023 10:10 PM EDT GLUCOSE METER, POINT OF CARE MONIKA 11/28/2023 5:09 PM EDT GLUCOSE METER, POINT OF CARE MONIKA 11/28/2023 2:38 PM EDT GLUCOSE METER, POINT OF CARE MONIKA 11/28/2023 1:29 PM EDT GLUCOSE METER, POINT OF CARE Routine 11/28/2023 10:48 AM EDT documented in this encounter Results * GLUCOSE METER, POINT OF CARE (11/29/2023 7:52 AM EDT) Glucose Meter 113 70 - 120 mg/dL 11/29/2023 8:26 AM EDT [facility] Blood Whole blood specimen / Unknown 11/29/2023 7:52 AM EDT 11/29/2023 8:26 AM EDT Christophe Henriquez MD LAB POINT OF CAR E TEST DOCKED DEVICE UNSOLICITED RESULTS [facility] [address] [place] [address] * (ABNORMAL) BASIC METABOLIC PANEL (11/29/2023 5:15 AM EDT) BUN 12 6 - 20 mg/dL 11/29/2023 6:24 AM EDT [facility] Creatinine 0.7 0.6 - 1.2 mg/dL 11/29/2023 6:24 AM EDT [facility] Estimated Glomerular Filtration Rate >90 >=60 mL/min 11/29/2023 6:24 AM EDT [facility] Comment:eGFR is calculated b ased on the CKD-EPI 2020 equation. Sodium 143 135 - 146 mmol/L 11/29/2023 6:24 AM EDT [facility] Potassium 3.4(L) 3.5 - 5.1 mmol/L 11/29/2023 6:24 AM EDT [facility] Chloride 107 98 - 107 mmol/L 11/29/2023 6:24 AM EDT [facility] CO2 23 22 - 32 mmol/L 11/29/2023 6:24 AM EDT [facility] Anion Gap 13 7 - 15 mmol/L 11/29/2023 6:24 AM EDT [facility] Glucose 112 70 - 120 mg/dL 11/29/2023 6:24 AM EDT [facility] Calcium 8.0(L) 8.4 - 10.2 mg/dL 11/29/2023 6:24 AM EDT [facility] C Blood Venous blood specimen / Unknown Venipuncture / Unknown 11/29/2023 5:15 AM EDT 11/29/2023 5:51 AM EDT Rikki Green MD LAB BLOOD ORDER [facility] [address] [place] [address] * (ABNORMAL) CBC (11/29/2023 5:15 AM EDT) WBC 12.60(H) 4.00 - 10.80 K/uL 11/29/2023 6:06 AM EDT [facility] RBC 4.14 4.50 - 5.25 M/uL 11/29/2023 6:06 AM EDT [facility] HGB 12.2(L) 14.0 - 16.8 g/dL 11/29/2023 6:06 AM EDT [facility] HCT 38.9(L) 40.0 - 48.4 % 11/29/2023 6:06 AM EDT [facility] MCV 94.0 82.0 - 99.5 fL 11/29/2023 6:06 AM EDT [facility] MCH 29.5 27.0 - 34.0 pg 11/29/2023 6:06 AM EDT [facility] MCHC 31.4 32.0 - 36.0 g/dL 11/29/2023 6:06 AM EDT [facility] RDW 16.2 11.5 - 15.5 % 11/29/2023 6:06 AM EDT [facility] PLT 172 140 - 400 K/uL 11/29/2023 6:06 AM EDT [facility] MPV 11.4 6.6 - 11.1 fL 11/29/2023 6:06 AM EDT [facility] nRBCs 0 <=0 /100 WBCs 11/29/2023 6:06 AM EDT [facility] Blood Venous blood specimen / Unknown Venipuncture / Unknown 11/29/2023 5:15 AM EDT 11/29/2023 5:51 AM EDT Rikki Green MD LAB BLOOD ORDER [facility] [address] [place] [address] * (ABNORMAL) GLUCOSE METER, POINT OF CARE (11/28/2023 10:10 PM EDT) Glucose Meter 165(H) 70 - 120 mg/dL 11/28/2023 10:17 PM EDT [facility] Blood Whole blood specimen / Unknown 11/28/2023 10:10 PM EDT 11/28/2023 10:17 PM EDT Christophe Henriquez MD LAB POINT OF CAR E TEST DOCKED DEVICE UNSOLICITED RESULTS Performing Organization Address City/[facility]/ZIP Co de Phone Number [facility] [address] [place] [address] * (ABNORMAL) GLUCOSE METER, POINT OF CARE (11/28/2023 5:09 PM EDT) Glucose Meter 187(H) 70 - 120 mg/dL 11/28/2023 5:15 PM EDT [facility] Blood Whole blood specimen / Unknown 11/28/2023 5:09 PM EDT 11/28/2023 5:14 PM EDT Christophe Henriquez MD LAB POINT OF CAR E TEST DOCKED DEVICE UNSOLICITED RESULTS Performing Organization Address City/[facility]/ZIP Co de Phone Number [facility] [address] [place] [address] * (ABNORMAL) GLUCOSE METER, POINT OF CARE (11/28/2023 2:38 PM EDT) Glucose Meter 228(H) 70 - 120 mg/dL 11/28/2023 2:40 PM EDT [facility] Blood Whole blood specimen / Unknown 11/28/2023 2:38 PM EDT 11/28/2023 2:40 PM EDT Christophe Henriquez MD LAB POINT OF CAR E TEST DOCKED DEVICE UNSOLICITED RESULTS [facility] [address] [place] [address] * (ABNORMAL) GLUCOSE METER, POINT OF CARE (11/28/2023 1:29 PM EDT) Glucose Meter 236(H) 70 - 120 mg/dL 11/28/2023 1:38 PM EDT [facility] Blood Whole blood specimen / Unknown 11/28/2023 1:29 PM EDT 11/28/2023 1:38 PM EDT Christophe Henriquez MD LAB POINT OF CAR E TEST DOCKED DEVICE UNSOLICITED RESULTS Performing Organization Address City/[facility]/ZIP Co de Phone Number [facility] [address] [place] [address] * (ABNORMAL) GLUCOSE METER, POINT OF CARE (11/28/2023 10:48 AM EDT) Glucose Meter 143(H) 70 - 120 mg/dL 11/28/2023 10:50 AM EDT [facility] Blood 11/28/2023 10:4 8 AM EDT 11/28/2023 10:50 AM EDT Greg Norwood MD LAB POINT OF CARE TE ST DOCKED DEVICE UNSOLICITED RESULTS Performing Organization Address City/[facility]/ZIP Co de Phone Number [facility] [address] [place] [address] documented in this encounter Visit Diagnoses Diagnosis Paraesophageal hiatal hernia- Primary Diaphragmatic hernia without mention of obstruction or gangrene documented in this encounter Administered Medications Inactive Administered Medications - up to 3 most recent administrations Medication Order MAR Action Action Date Dose Rate Site Acetaminophen (Tylenol) tab 975 mg 975 mg, Oral, PREOP, First dose on Fri11/28/23 at 1045, Last dose on Fri11/28/23 at 1045, For 1 dose, Maximum 4 g acetaminophen/day. Avoid in patients with severe hepatic impairment or severe active liver disease. Administer 60 minutes prior to OR., Pre-Op Given 11/28/2023 10:38 AM EDT 975 mg Acetaminophen (Tylenol) tab 975 mg 975 mg, Oral, Q8H, First dose on Fri11/28/23 at 1500, Last dose on Fri12/03/23 at 0600, For 5 days, Avoid in patients with severe hepatic impairment or severe active liver disease. Use for 5 days., Post-op, Post-op Given 11/29/2023 5:53 AM EDT 975 mg Given 11/28/2023 5:13 PM EDT 975 mg celecoxib (CeleBREX) cap 200 mg 200 mg, Oral, PREOP, First dose on Fri11/28/23 at 1045, Last dose on Fri11/28/23 at 1045, For 1 dose, Contraindicated in setting of CABG surgery. Do not use in patients with CrCl < 60, receiving ketorolac, or have bone fracture. Administer 60 minutes prior to OR, Pre-Op Given 11/28/2023 10:38 AM EDT 200 mg chlorhexidine gluconate cloth 2 % pad 1 Pad 1 Pad, External, PREOP, First dose on Fri11/28/23 at 1045, Last dose on Fri11/28/23 at 1045, For 1 dose, Cleanse surgical site area immediately before transferring intra-op, Pre-Op Given 11/28/2023 10:45 AM EDT 1 Pad dextrose 50% inj 25 mL 25 mL, IV Push, PRN Hypoglycemia, Other, For blood glucose 54 - 69 mg/dL or 70 - 100 mg/dL with symptoms AND patient is unresponsive, NPO, OR unable to swallow, Starting on Fri11/28/23 at 1550, Until 11/29/23 at 1531, Administer IV. Recheck blood glucose after 15 minutes. Notify provider. dextrose 50% inj 50 mL 50 mL, IV Push, PRN Hypoglycemia, Other, For blood glucose below 54 mg/dL AND patient unresponsive, NPO, OR unable to swallow, Starting on Fri11/28/23 at 1550, Until 11/29/23 at 1531, Administer IV. Recheck blood glucose in 15 minutes. Notify provider. dilTIAZem CD (Cardizem CD) extended release cap 300 mg 300 mg, Oral, Q24H, First dose (after last reorder) on Fri11/29/23 at 1900, Until Discontinued, Hold for HR less than 60 or SBP below 100 and notify service if dose is held Do NOT open, chew or crush capsules Enoxaparin (Lovenox) inj 30 mg 30 mg, Subcutaneous, ONCE, On Fri11/28/23 at 1045, For 1 dose, If patient is on warfarin, inform provider if daily INR value is 2 or greater!, Pre-Op Given 11/28/2023 10:38 AM EDT 30 mg Abdomen Left Lower Enoxaparin (Lovenox) inj 40 mg 40 mg, Subcutaneous, Daily(AM), First dose on 11/29/23 at 1015, Until Discontinued, If patient is on warfarin, inform provider if daily INR value is 2 or greater! fentaNYL (PF) inj 25 mcg 25 mcg, IV Push, Q5 MIN PRN Pain, Severe, Starting on Fri11/28/23 at 1434, Until Fri11/28/23 at 1617, For 4 doses, Administer up to a total of 100 mcg. Administer only postop in PACU When given IV Push its recommended that the dose be given over 3 to 5 minutes., PACU Given 11/28/2023 3:21 PM EDT 25 mcg glucagon (Glucagen) inj 1 mg 1 mg, Intramuscular, PRN Hypoglycemia, Other, If patient is unresponsive, or NPO and has no IV access, Starting on Fri11/28/23 at 1550, Until 11/29/23 at 1531, NPO and no IV access with either 1) blood glucose less than 100 mg/dL and symptomatic OR 2) blood glucose less than 70 mg/dL and asymptomatic Glucose (Glutose 15) 40 % gel 15 g of glucose 15 g of glucose, Oral, PRN Hypoglycemia (low sugar), Other, For blood glucose 54 - 69 mg/dL or 70 - 100 mg/dL with symptoms AND patient alert WITH difficulty chewing/swallowing, Starting on Fri11/28/23 at 1550, Until 11/29/23 at 1531, Administer gel. Recheck blood glucose after 15 minutes. Notify provider. 37.5 gram tube = 15 grams glucose = 1 each Glucose (Glutose 15) 40 % gel 30 g of glucose 30 g of glucose, Oral, PRN Hypoglycemia (low sugar), Other, For blood glucose below 54 mg/dL AND patient alert WITH difficulty chewing/swallowing, Starting on Fri11/28/23 at 1550, Until 11/29/23 at 1531, Administer gel. Recheck blood glucose after 15 minutes. Notify provider. 37.5 gram tube = 15 grams glucose = 1 each glucose chew tab 16 g 16 g, Oral, PRN Hypoglycemia, Other, For blood glucose 54 - 69 mg/dL or 70 - 100 mg/dL with symptoms and patient alert without difficulty chewing/swallowing., Starting on Fri11/28/23 at 1550, Until 11/29/23 at 1531 HYDROmorphone (Dilaudid) inj 0.5 mg 0.5 mg, IV Push, Q15 MIN PRN Pain, Severe, Starting on Fri11/28/23 at 1437, Until Fri11/28/23 at 1617, For 3 doses, Administer only postop in PACU. Hold for respiratory rate less than 12. Administer up to a total of 1.5mg., PACU Given 11/28/2023 3:10 PM EDT 0.5 mg Given 11/28/2023 2:51 PM EDT 0.5 mg insulin aspart (NovoLOG) inj 4 Units 4 Units, Subcutaneous, ONCE, 1 dose, On Fri11/28/23 at 1530, MEDIUM DOSE (Usual starting dose): Sliding Scale Correctional insulin may be given if the patient is NPO. Dose based on standard build from Insulin Calculator. Do not modify insulin doses in administration instructions!, Glucose less than 70 instructions: Obtain STAT lab blood glucose and call covering provider., Glucose 80-150 (units): 0, Glucose 151-200 (units): 2, Glucose 201-250 (units): 4, Glucose 251-300 (units): 6, Glucose greater than 300 (units): 8, Glucose greater than 300 instructions: Give suggested insulin dose and call covering provider. Given 11/28/2023 2:54 PM EDT 4 Units Deltoid Right Upper insulin aspart (NovoLOG) inj Subcutaneous, W/MEALS AND HS, First dose on Fri11/28/23 at 1700, Until Discontinued, MEDIUM DOSE (Usual starting dose): Sliding Scale Correctional insulin may be given if the patient is NPO. Dose based on standard build from Insulin Calculator. Do not modify insulin doses in administration instructions!, Glucose less than 70 instructions: Obtain STAT lab blood glucose and call covering provider., Glucose 80-150 (units): 0, Glucose 151-200 (units): 2, Glucose 201-250 (units): 4, Glucose 251-300 (units): 6, Glucose greater than 300 (units): 8, Glucose greater than 300 instructions: Give suggested insulin dose and call covering provider. Given 11/28/2023 10:21 PM EDT 2 Units Arm Right Upper isolyte-S pH 7.4 infusion Intravenous, at 100 mL/hr, Plasma-LYTE 148, isolyte-S, and isolyte-S pH 7.4 are considered equivalent - including for MAR barcode scanning., CONTINUOUS, Starting on Fri11/28/23 at 1145, Until Fri11/29/23 at 0623, Pre-Op Rate Verify 11/29/2023 2:00 AM EDT 100 mL/hr New Bag 11/28/2023 9:09 PM EDT 100 mL/hr New Bag 11/28/2023 11:45 AM EDT 100 mL/hr isolyte-S pH 7.4 infusion Intravenous, at 75 mL/hr, Plasma-LYTE 148, isolyte-S, and isolyte-S pH 7.4 are considered equivalent - including for MAR barcode scanning., CONTINUOUS, Starting on Fri11/29/23 at 0700, Until Fri11/29/23 at 1531, Pre-Op Rate Verify 11/29/2023 6:34 AM EDT 75 mL/hr New Bag 11/29/2023 6:32 AM EDT 75 mL/hr metoprolol succinate XL (toPROL XL) tab 50 mg 50 mg, Oral, Daily(AM), First dose on Fri11/29/23 at 0900, Until Discontinued, Hold for HR less than 60 or SBP below 100 and notify service if dose is held This med should NOT be Crushed or Chewed. Given 11/29/2023 8:38 AM EDT 50 mg oxygen GAS Inhalation, OXYGEN, First dose on Fri11/28/23 at 1600, Until Discontinued, Device/Managed by: Low Flow Device, Goal SPO2 (%): 91-95, Starting Device: Nasal Cannula, Initial Flow Rate (LPM): 2, Lowest Support: Nasal Cannula: Flow 0-6 LPM. Titrate up/down by 1 LPM., Titration Interval: Q2 minutes and as needed., Notify Provider: For sudden DECREASE in resting SPO2 to less than 85% and when escalating delivery device., Wean patient off Oxygen when the oxygen saturation is greater than or equal to 93% Oxygen On 11/29/2023 12:00 AM EDT 4 L/min(Oxygen) potassium chloride ER tab 40 mEq 40 mEq, Oral, ONCE, On 11/29/23 at 1015, For 1 dose, This med should NOT be Crushed or Chewed Given 11/29/2023 10:38 AM EDT 40 mEq potassium CHLORide liquid 20 mEq 20 mEq, Oral, ONCE, On 11/29/23 at 0930, For 1 dose, To avoid GI irritation, must further diilute 15 ml in 3 ounces H2O or other fluid Given 11/29/2023 10:38 AM EDT 20 mEq Povidone-Iodine nasal swab 4 Swab 4 Swab, Nasal, PREOP, First dose on Fri11/28/23 at 1045, Last dose on Fri11/28/23 at 1045, For 1 dose, Tilt the bottle slightly, dip one swab into solution and stir vigorously for 10 seconds. Withdraw the swab slowly to avoid wiping solution off during removal. Insert swab comfortably into one nostril and rotate for 15 seconds, covering all surfaces. Then focus on the inside tip of nostril and rotate for an additional 15 seconds. Using a new swab, Repeat above steps in the other nostril (Swab 2). Repeat the application in both nostrils using a fresh swab each times (Swab 3 and 4)., Pre-Op Given 11/28/2023 10:38 AM EDT 4 Swabs predniSONE (Deltasone) tab 5 mg 5 mg, Oral, Daily(AM), First dose on 11/29/23 at 0900, Until Discontinued Given 11/29/2023 8:38 AM EDT 5 mg documented in this encounter Active and Recently Administered Medications Times are shown in EDT. Scheduled Medication Order 11/27/2023 11/28/2023 11/29/2023 Acetaminophen (Tylenol) tab 975 mg (COMPLETED) 975 mg, Oral, PREOP, First dose on Fri11/28/23 at 1045, Last dose on Fri11/28/23 at 1045, For 1 dose, Maximum 4 g acetaminophen/day. Avoid in patients with severe hepatic impairment or severe active liver disease. Administer 60 minutes prior to OR., Pre-Op 1038 (Given - Provider: Yoli Morgan, BART) Acetaminophen (Tylenol) tab 975 mg 975 mg, Oral, Q8H, First dose on Fri11/28/23 at 1500, Last dose on Fri12/03/23 at 0600, For 5 days, Avoid in patients with severe hepatic impairment or severe active liver disease. Use for 5 days., Post-op, Post-op 1713 (Given - Provider: Yoli Morgan RN)2220 (Not Given - Provider: Elenita Pritchard RN - Reason: Refused-Notify Provider) 0553 (Given - Provider: Moriah Mosley, BART) atorvaSTATin (Lipitor) tab 20 mg 20 mg, Oral, Q1700, First dose on Fri11/28/23 at 1700, Until Discontinued, In the morning. 1700 (Not Given - Provider: Yoli Morgan RN - Reason: Parameter(s) Not Met - Comment: pt took at home) ceFAZolin in dextrose (Ancef) ivpb 2 g 2 g, IV Piggyback, PREOP, 1 dose, First dose on Fri11/28/23 at 1145, Pre-Op 1145 (OR/Procedure - Provider: Lyly Velásquez RN) celecoxib (CeleBREX) cap 200 mg (COMPLETED) 200 mg, Oral, PREOP, First dose on Fri11/28/23 at 1045, Last dose on Fri11/28/23 at 1045, For 1 dose, Contraindicated in setting of CABG surgery. Do not use in patients with CrCl < 60, receiving ketorolac, or have bone fracture. Administer 60 minutes prior to OR, Pre-Op 1038 (Given - Provider: Yoli Morgan RN) chlorhexidine gluconate cloth 2 % pad 1 Pad (COMPLETED) 1 Pad, External, PREOP, First dose on Fri11/28/23 at 1045, Last dose on Fri11/28/23 at 1045, For 1 dose, Cleanse surgical site area immediately before transferring intra-op, Pre-Op 1045 (Given - Provider: Yoli Morgan, BART) dilTIAZem CD (Cardizem CD) extended release cap 300 mg 300 mg, Oral, Q24H, First dose (after last reorder) on Fri11/29/23 at 1900, Until Discontinued, Hold for HR less than 60 or SBP below 100 and notify service if dose is held Do NOT open, chew or crush capsules Enoxaparin (Lovenox) inj 30 mg (COMPLETED) 30 mg, Subcutaneous, ONCE, On Fri11/28/23 at 1045, For 1 dose, If patient is on warfarin, inform provider if daily INR value is 2 or greater!, Pre-Op 1038 (Given - Provider: Yoli Morgan RN) Enoxaparin (Lovenox) inj 40 mg 40 mg, Subcutaneous, Daily(AM), First dose on Fri11/29/23 at 1015, Until Discontinued, If patient is on warfarin, inform provider if daily INR value is 2 or greater! 1015 (Due) insulin aspart (NovoLOG) inj 4 Units (COMPLETED) 4 Units, Subcutaneous, ONCE, 1 dose, On Fri11/28/23 at 1530, MEDIUM DOSE (Usual starting dose): Sliding Scale Correctional insulin may be given if the patient is NPO. Dose based on standard build from Insulin Calculator. Do not modify insulin doses in administration instructions!, Glucose less than 70 instructions: Obtain STAT lab blood glucose and call covering provider., Glucose 80-150 (units): 0, Glucose 151-200 (units): 2, Glucose 201-250 (units): 4, Glucose 251-300 (units): 6, Glucose greater than 300 (units): 8, Glucose greater than 300 instructions: Give suggested insulin dose and call covering provider. 1454 (Given - Provider: Lyly Velásquez RN) insulin aspart (NovoLOG) inj Subcutaneous, W/MEALS AND HS, First dose on Fri11/28/23 at 1700, Until Discontinued, MEDIUM DOSE (Usual starting dose): Sliding Scale Correctional insulin may be given if the patient is NPO. Dose based on standard build from Insulin Calculator. Do not modify insulin doses in administration instructions!, Glucose less than 70 instructions: Obtain STAT lab blood glucose and call covering provider., Glucose 80-150 (units): 0, Glucose 151-200 (units): 2, Glucose 201-250 (units): 4, Glucose 251-300 (units): 6, Glucose greater than 300 (units): 8, Glucose greater than 300 instructions: Give suggested insulin dose and call covering provider. 1700 (Not Given - Provider: Yoli Morgan RN - Reason: Parameter(s) Not Met - Comment: per dr greg norwood)2221 (Given - Provider: Elenita Pritchard, BART) 0800 (Not Given - Provider: Nae Weaver RN - Reason: Parameter(s) Not Met) metoprolol succinate XL (toPROL XL) tab 50 mg 50 mg, Oral, Daily(AM), First dose on Fri11/29/23 at 0900, Until Discontinued, Hold for HR less than 60 or SBP below 100 and notify service if dose is held This med should NOT be Crushed or Chewed. 0838 (Given - Provid er: Nae Weaver RN) oxygen GAS Inhalation, OXYGEN, First dose on Fri11/28/23 at 1600, Until Discontinued, Device/Managed by: Low Flow Device, Goal SPO2 (%): 91-95, Starting Device: Nasal Cannula, Initial Flow Rate (LPM): 2, Lowest Support: Nasal Cannula: Flow 0-6 LPM. Titrate up/down by 1 LPM., Titration Interval: Q2 minutes and as needed., Notify Provider: For sudden DECREASE in resting SPO2 to less than 85% and when escalating delivery device., Wean patient off Oxygen when the oxygen saturation is greater than or equal to 93% 1600 (Oxygen Off - Provider: Lyly Velásquez RN) 0000 (Oxygen On - Provider: Elenita Pritchard RN)0800 (Oxygen Off - Provider: Nae Weaver RN) potassium chloride ER tab 40 mEq (COMPLETED) 40 mEq, Oral, ONCE, On Fri11/29/23 at 1015, For 1 dose, This med should NOT be Crushed or Chewed 1038 (Given - Provid er: Edna Sharma, BART) potassium CHLORide liquid 20 mEq (COMPLETED) 20 mEq, Oral, ONCE, On Fri11/29/23 at 0930, For 1 dose, To avoid GI irritation, must further diilute 15 ml in 3 ounces H2O or other fluid 1038 (Given - Provid er: Edna Sharma, BART) Povidone-Iodine nasal swab 4 Swab (COMPLETED) 4 Swab, Nasal, PREOP, First dose on Fri11/28/23 at 1045, Last dose on Fri11/28/23 at 1045, For 1 dose, Tilt the bottle slightly, dip one swab into solution and stir vigorously for 10 seconds. Withdraw the swab slowly to avoid wiping solution off during removal. Insert swab comfortably into one nostril and rotate for 15 seconds, covering all surfaces. Then focus on the inside tip of nostril and rotate for an additional 15 seconds. Using a new swab, Repeat above steps in the other nostril (Swab 2). Repeat the application in both nostrils using a fresh swab each times (Swab 3 and 4)., Pre-Op 1038 (Given - Provider: Yoli Morgan RN) predniSONE (Deltasone) tab 5 mg 5 mg, Oral, Daily(AM), First dose on Fri11/29/23 at 0900, Until Discontinued 0838 (Given - Provid er: Nae Weaver RN) Continuous Medication Order 11/27/2023 11/28/2023 11/29/2023 isolyte-S pH 7.4 infusion (CANCELED) Intravenous, at 100 mL/hr, Plasma-LYTE 148, isolyte-S, and isolyte-S pH 7.4 are considered equivalent - including for MAR barcode scanning., CONTINUOUS, Starting on Fri11/28/23 at 1145, Until Fri11/29/23 at 0623, Pre-Op 1145 (New Bag - Provider: Yoli Morgan RN)2109 (New Bag - Provider: Elenita Pritchard RN) 0200 (Rate Verify - Provider: Elenita Pritchard RN)0623 (Stopped - Provider: Moriah Mosley RN) isolyte-S pH 7.4 infusion Intravenous, at 75 mL/hr, Plasma-LYTE 148, isolyte-S, and isolyte-S pH 7.4 are considered equivalent - including for MAR barcode scanning., CONTINUOUS, Starting on Fri11/29/23 at 0700, Until 11/29/23 at 1531, Pre-Op 0632 (New Bag - Provider: Moriah Mosley RN)0634 (Rate Verify - Provider: Elenita Pritchard RN)1531 (Due: Stopped) PRN Medication Order 11/27/2023 11/28/2023 11/29/2023 BUPivacaine-EPINEPHrine 0.25 % 60 mL in NSS 60 mL iv soln (CANCELED) ONCE PRN INTRA PROCEDURE, Starting on Fri11/28/23 at 1157, Until Fri11/28/23 at 1427, Intra-Op 1157 (Given - Provider: Oh Henriquez MD) dextrose 50% inj 25 mL 25 mL, IV Push, PRN Hypoglycemia, Other, For blood glucose 54 - 69 mg/dL or 70 - 100 mg/dL with symptoms AND patient is unresponsive, NPO, OR unable to swallow, Starting on Fri11/28/23 at 1550, Until 11/29/23 at 1531, Administer IV. Recheck blood glucose after 15 minutes. Notify provider. dextrose 50% inj 50 mL 50 mL, IV Push, PRN Hypoglycemia, Other, For blood glucose below 54 mg/dL AND patient unresponsive, NPO, OR unable to swallow, Starting on Fri11/28/23 at 1550, Until 11/29/23 at 1531, Administer IV. Recheck blood glucose in 15 minutes. Notify provider. fentaNYL (PF) inj 25 mcg (CANCELED) 25 mcg, IV Push, Q5 MIN PRN Pain, Severe, Starting on Fri11/28/23 at 1434, Until Fri11/28/23 at 1617, For 4 doses, Administer up to a total of 100 mcg. Administer only postop in PACU When given IV Push its recommended that the dose be given over 3 to 5 minutes., PACU 1521 (Given - Provider: Marce Velásquez RN) glucagon (Glucagen) inj 1 mg 1 mg, Intramuscular, PRN Hypoglycemia, Other, If patient is unresponsive, or NPO and has no IV access, Starting on Fri11/28/23 at 1550, Until 11/29/23 at 1531, NPO and no IV access with either 1) blood glucose less than 100 mg/dL and symptomatic OR 2) blood glucose less than 70 mg/dL and asymptomatic Glucose (Glutose 15) 40 % gel 15 g of glucose 15 g of glucose, Oral, PRN Hypoglycemia (low sugar), Other, For blood glucose 54 - 69 mg/dL or 70 - 100 mg/dL with symptoms AND patient alert WITH difficulty chewing/swallowing, Starting on Fri11/28/23 at 1550, Until 11/29/23 at 1531, Administer gel. Recheck blood glucose after 15 minutes. Notify provider. 37.5 gram tube = 15 grams glucose = 1 each Glucose (Glutose 15) 40 % gel 30 g of glucose 30 g of glucose, Oral, PRN Hypoglycemia (low sugar), Other, For blood glucose below 54 mg/dL AND patient alert WITH difficulty chewing/swallowing, Starting on Fri11/28/23 at 1550, Until 11/29/23 at 1531, Administer gel. Recheck blood glucose after 15 minutes. Notify provider. 37.5 gram tube = 15 grams glucose = 1 each glucose chew tab 16 g 16 g, Oral, PRN Hypoglycemia, Other, For blood glucose 54 - 69 mg/dL or 70 - 100 mg/dL with symptoms and patient alert without difficulty chewing/swallowing., Starting on Fri11/28/23 at 1550, Until 11/29/23 at 1531 HYDROmorphone (Dilaudid) inj 0.5 mg (CANCELED) 0.5 mg, IV Push, Q15 MIN PRN Pain, Severe, Starting on Fri11/28/23 at 1437, Until Fri11/28/23 at 1617, For 3 doses, Administer only postop in PACU. Hold for respiratory rate less than 12. 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 Yes, not currently available * Full [...] Advance Directives occurred with: Patient Care Teams Assembler Finger Buffs Relationship Specialty Start Date End Date Lana Eden MD [address] [facility] [place] [address] PCP - General Internal Medicine 12/04/20 documented as of this encounter
--- OUTSIDE RECORDS SUMMARY | 2024-02-20 11:46 | External Medical Summary ---
Author Name Unknown Address Unknown Organization : Laboratory Report Ordering Provider Test Date Status JEANNETTE MCNEIL 11/29/2023 07:52:42 Final Observation Date Value Abnormality Reference (Units ) Status Glucose Point of Care 11/29/2023 07:52:42 113 70-120 (mg/dL) Final Performing Location
--- OUTSIDE RECORDS SUMMARY | 2024-02-20 11:46 | External Medical Summary ---
Author Name Unknown Address Unknown Organization [id number]:[facility] [place] - [address] [place] [address] Laboratory Report Ordering Provider Test Date Status ELSA RAYBILCatina 11/29/2023 05:15:00 Final Observation Date Value Abnormality Reference (Units ) Status BUN 11/29/2023 05:15:00 12 6-20 (mg/dL) Final Creatinine 11/29/2023 05:15:00 0.7 0.6-1.2 (mg/dL) Final Glomerular filtration rate/1.73 sq M.predicted [Volume Rate/Area] in Serum, Plasma or Blood by Creatinine-based formula (CKD-EPI) 11/29/2023 05:15:00 >90 >=60 (mL/min) Final eGFR is calculated based on the CKD-EPI 2020 equation. Sodium 11/29/2023 05:15:00 143 135-146 (m mol/L) Final Potassium 11/29/2023 05:15:00 3.4 Below low normal 3.5 -5.1 (mmol/L) Final Cl 11/29/2023 05:15:00 107 98-107 (mm ol/L) Final CO2 11/29/2023 05:15:00 23 22-32 (mmo l/L) Final Anion gap 11/29/2023 05:15:00 13 7-15 (mmol /L) Final Glucose 11/29/2023 05:15:00 112 70-120 (mg /dL) Final Calcium 11/29/2023 05:15:00 8.0 Below low normal 8.4 -10.2 (mg/dL) Final Performing Location [facility] [place] - [address] [place] [address]
--- OUTSIDE RECORDS SUMMARY | 2024-02-20 11:46 | External Medical Summary ---
Author Name Unknown Address Unknown Organization : Laboratory Report Ordering Provider Test Date Status JEANNETTE MCNEIL 11/28/2023 13:29:42 Final Observation Date Value Abnormality Reference (Units ) Status Glucose Point of Care 11/28/2023 13:29:42 236 Above high normal 70-120 (mg/dL) Final Performing Location
--- OUTSIDE RECORDS SUMMARY | 2024-02-20 11:46 | External Medical Summary | Summary of Care ---
Author Name Unknown Organization [facility] Address [address] [place] [address] Phone [phone] Care Team Providers Care Car Attendant Name Role Phone Lana Eden MD Primary Care Provider [phone] Encounter Details Date Type Department Care Team (Late st Contact Info) Description 11/25/2023 Orders Only General Internal Medicine [facility] [address] [place] [address] Lana Eden MD [address] [place] [address] Allergies Active Allergy Reactions Criticality Noted Date Comments Amoxicillin-Pot Clavulanate 02/24/20 19 Codeine High 01/05/2020 Other reaction(s): "I GOT REALLY SICK" Hydrocodone Bit-Homatrop Mbr 017 Levothyroxine Sodium Hives,Rash High 10/01/2010 documented as of this encounter (statuses as of 11/25/2023) Medications Medication Sig Dispensed Refills Start Date [...] rhinitis, unspecified seasonality, unspecified trigger Administer 1 [place] into nostril in the morning and 1 [place] before bedtime. 90 mL 3 04/03/2023 Active [...] Capsule (Acetylcysteine) Take by mouth. Acti ve predniSONE 10 MG Oral Tablet (Deltasone)Indicati ons:Polymyalgia rheumatica (HCC) Take 1 Tablet by mouth in the morning. Taking 5 mg daily now. 10/20/2023 Active Ondansetron HCl 4 MG Oral TabletIndications:P araesophageal [...] mouth daily. 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 Never true 12/27/2022 Sex and Gender Information Value Date Recorded [...] deaf or do you have serious difficulty h earing? No 08/05/2023 Are you blind or do you have serious difficulty seeing, even when wearing glasses? No 08/05/2023 Do you have serious difficul ty walking or climbing stairs? (5 years old or older) No 08/05/2023 Do you have difficulty dress ing or bathing? (5 years old or older) No 08/05/2023 Because of a physical, menta l, or emotional condition, do you have difficulty doing errands alone such as visiting a doctor s office or shopping? (15 years old or older) No 08/05/19 Cognitive Status Response Date of Assessm ent Because of a physical, menta l, or emotional condition, do you have serious difficulty concentrating, remembering, or making decisions? (5 years old or older) No 08/05/2023 documented as of this encounter Plan of Treatment Upcoming Encounters Date Type Department Care Team (Latest Contact Info) Description 11/26/2023 11:30 AM EDT Office Visit Cardiology, [facility] [address] [facility] [place] [address] Billy Anthony PA-C [address] [place] [address] 11/28/2023 11:28 AM EDT Hospital Encounter OR [facility], OPERATING ROOM [facility] [address] [place] [facility] [place] [phone] Christophe Henriquez MD [address] [place] [address] 11/28/2023 11:28 AM EDT - 11/28/2023 4:12 PM EDT Surgery OR [facility], OPERATING ROOM [facility] [address] [facility] [place] [address] Christophe Henriquez MD [address] [place] [facility] [place] [address] LAPAROSCOPIC PARAESOPHAGEAL HERNIA REPAIR WO/ MESH 12/12/2023 2:00 PM EDT Office Visit General Surgery, [facility] [address] [place] [address] Anna Ash MD [address] [place], [place] [phone] 01/06/2024 3:00 PM EDT Office Visit Hematology/Oncolog y [facility] [address] [place], [place] [address] Pepito Chiang MD 200 [facility] [place], [place] [address] 02/24/2024 1:40 PM EST Office Visit Rheumatology [place] [address] [facility] [place], [place] [address] Niraj Shukla MD [address] [place], [place] [address] 04/22/2024 1:40 PM EST Office Visit General Internal Medicine [facility] [address] [place] [address] Lana Eden MD 200 [facility] [place], [place] [address] 05/19/2024 3:00 PM EST Telemedicine General Surgery, [place] [address] [place], [place] [phone] Best Shelley MD [address] [place], [place] [phone] 09/02/2024 2:00 PM EDT Office Visit Cardiology, [facility] [address] [place] [id number] Billy Anthony PA-C [address] [place] [address] Scheduled Procedures Name Priority Associated Diagnoses Date/Ti me LAPAROSCOPIC PARAESOPHAGEAL HERNIA REPAIR WO/ MESH Paraesophageal hiatal hernia 11/28/2023 11:28 AM EDT LAPAROSCOPIC PARAESOPHAGEAL HERNIA REPAIR W/MESH Paraesophageal hiatal hernia 11/28/2023 11:28 AM EDT ESOPHAGOGASTRODUODENOSCOPY ( EGD), FLEXIBLE, TRANSORAL, DIAGNOSTIC Paraesophageal hiatal hernia 11/28/2023 11:28 AM EDT COLONOSCOPY FLEXIBLE PROXIMA L DIAGNOSTIC Recall History of colonic polyps Health Maintenance Due Date Last Done Comments COVID-19 Vaccine ( season) 2023 02/25/2023, 01/11/2022, 08/25/2021, Additional history exists Diabetic Foot Exam 11/06/2023 11/05/2022 (Precious hagen Completed), 08/09/2021 Influenza Vaccine (FLU shot) (#1) [...] 024, 12/13/2022, 11/13/2022, Additional history exists GFR 11/06/2024 11/07/2023, 0705/2023, 10/10/2023, Additional history exists Pneumococcal Vaccine: 65+ Years Completed 05/20/2017, 11/08/2015 Zoster Vaccines Completed 08/18/2019, 04/16, 06/12/2011 VITAMIN D LEVEL ONCE IN A LIFETIME-USE SMARTSET# [id number] Completed 02/10/2023, 11/20/2021, 05/08/2021 Hepatitis B Vaccine [...] Procedure Name Priority Date/Time Associated Diagnosis Comments DIABETIC EYE EXAM Routine 07/15/2023 documented in this encounter Results * DIABETIC EYE EXAM (07/15/2023) 07/15/2023 Logan Brown MD OTHER OUTSIDE LAB (SEE SCANNED REPORT) documented in this encounter Advance Directives Documents on File Type Date Recorded 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 Question Answer Comments Discussion of Advance Directives occurred with: Patient Care Teams Car Attendant Relationship Specialty Start Date End Date Lana Eden MD [address] [facility] [address] PCP - General Internal Medicine 12/04/20 documented as of this encounter
--- OUTSIDE RECORDS SUMMARY | 2024-02-20 11:46 | External Medical Summary | Summary of Care ---
Author Name Unknown Organization [facility] Address [address] [place] [address] Phone [phone] Care Team Providers Care Jd Edwards Developer Name Role Phone Lana Eden MD Primary Care Provider [phone] Reason for Visit * Reason Comments Follow Up Encounter Details Date Type Department Care Team (Late st Contact Info) Description 11/20/2023 4:00 PM EDT [facility] [address] [place], [place] [phone] Best Shelley MD [address] [place] [address] History of colon cancer* Allergies Active Allergy Reactions Criticality Noted Date Comments Amoxicillin-Pot Clavulanate 02/24/20 19 Codeine High 01/05/2020 Other reaction(s): "I GOT REALLY SICK" Hydrocodone Bit-Homatrop Mbr 017 Levothyroxine Sodium Hives,Rash High 10/01/2010 documented as of this encounter (statuses as of 11/20/2023) Medications Medication Sig Dispensed Refills Start Date [...] rhinitis, unspecified seasonality, unspecified trigger Administer 1 [place] into nostril in the morning and 1 [place] before bedtime. 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 (5 years old or older) No 08/05/2023 documented as of this encounter Progress Notes * Best Shelley MD - 11/20/2023 4:00 PM EDT Patient location: HOME. I was in a hospital or clinic location. After connecting through [employer],patient was verified with two unique identifiers. 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 Methods to assure confidentiality were taken. Patient acknowledged consent and understanding of pr ivacy and security of the Telemedicine visit. The patient agreed to participate. Colorectal Surgery Follow up Note ID: Harpreet Oneal DATE OF VISIT: 11/20/2023 Chief Complain Chief Complaint Patient presents with Follow Up Subjective Doing well since last visit. Eating whatever he wants, though smaller amounts due to a hiatal hernia which is scheduled to have repaired. Denies changes in bowel habits, denies blood in stool, weighthas been stable. Denies abdominal pain, fevers/chills. Objective Exam There were no vitals filed for this visit. No physical exam could be performed as this was a telemedicine visit. Component Latest Ref Rng 11/07/2023 CEA <=5.2 ng/mL 2.4 Assessment - T3N0 colon cancer s/p laparoscopic partial colectomy 07/2023 Plan / Recommendations 1. Labs and imaging per Oncology, follows with Dr Chiang 2. Surveillance colonoscopy July 2024 3. Follow up with me in 6 months Best Shelley MD Colon and Rectal Surgery 4:10 PM; 11/20/2023 documented in this encounter Plan of Treatment Upcoming Encounters Date Type Department Care Team (Latest Contact Info) Description 11/26/2023 11:30 AM EDT Office Visit Cardiology, [facility] [address] [place] [address] Billy Anthony PA-C [address] [place] [address] 11/28/2023 11:28 AM EDT Hospital Encounter [place] [facility], OPERATING ROOM [facility] [address] [place] [facility] [place] [phone] Christophe Henriquez MD [address] [place] [address] 11/28/2023 11:28 AM EDT Anesthesia Event OR [facility], OPERATING ROOM [facility] [address] [place] [facility] [place] [phone] Ramiro Skelton CRNP [address] [facility], [place] [phone] 11/28/2023 11:28 AM EDT - 11/28/2023 4:12 PM EDT Surgery [place] [facility], OPERATING ROOM [facility] [address] [place] [facility] [phone] Christophe Henriquez MD [address] [place] [address] LAPAROSCOPIC PARAESOPHAGEAL HERNIA REPAIR WO/ MESH 12/12/2023 2:00 PM EDT Office Visit General Surgery, [facility] [address] [place] [address] Anna Ash MD [address] [place] [address] 01/06/2024 3:00 PM EDT Office Visit Hematology/Oncolog y [facility] [place] [address] [place] [address] Pepito Chiang MD 200 [facility] [place] [address] 02/24/2024 1:40 PM EST Office Visit Rheumatology [facility] [address] [facility] [place], [place] [address] Niraj Shukla MD [address] [place], [place] [address] 04/22/2024 1:40 PM EST Office Visit General Internal Medicine [facility] [address] [facility] [place] [address] Lana Eden MD 200 [facility] [place], [place] [address] 09/02/2024 2:00 PM EDT Office Visit Cardiology, [facility] [address] [place] [address] Billy Anthony PA-C [address] [place] [address] Scheduled Orders Name Type Priority Associated Diagnoses Orde r Schedule COLONOSCOPY, DIAGNOSTIC (RECTUM) Procedures Routine History of colon cancer Expected: 07/19/2024, Expires: 12/20/2024 Scheduled Procedures Name Priority Associated Diagnoses Date/Ti [...] 02/25/2023, 01/11/2022, 08/25/2021, Additional history exists Diabetic Eye Exam 07/16/2023 07/15/2022, , 01/03/2022, Additional history exists Diabetic Foot Exam 11/06/2023 11/05/2022 (Precious hagen Completed), 08/09/2021 Influenza Vaccine (FLU shot) (#1) 2023 12/27/2022, 12/19/2021, 01/10/2021, Additional history exists Adult Wellness Visit 12/28/2023 12/27/2022, 10/12/19 21 Depression Screening 12/28/2023 12/27/2022 DTaP,Tdap,and Td Vaccines (3 - Td or Tdap) 12/30/2023 12/29/2013, 06/12/2005 HbA1c 05/09/2024 11/07/2023, 09/13, 07/28/2023, Additional history exists DXA Scan 05/29/2024 05/29/2022 Albumin/Creatinine Ratio 10/09/2024 024, 12/13/2022, 11/13/2022, Additional history exists GFR 11/06/2024 11/07/2023, 07/05/2023, 10/10/2023, Additional history exists Pneumococcal Vaccine: 65+ Years Completed 05/20/2017, 11/08/2015 Zoster Vaccines Completed 08/18/2019, 04/16, 06/12/2011 VITAMIN D LEVEL ONCE IN A LIFETIME-USE SMARTSET# [id number] Completed 02/10/2023, 11/20/2021, 05/08/2021 Hepatitis B Vaccine Completed 10/20/2023, 07/18/2023, 04/24/2023 HPV (Gardasil) Vaccine Aged Out No lo nger eligible based on patient's age to complete this topic MENINGOCOCCAL (MENACTRA/MENVEO) Aged Out No longer eligible based on patient's age to complete this topic documented as of this encounter Medical Devices Not on filedocumented as of this encounter Visit Diagnoses Diagnosis Paraesophageal hiatal hernia- Primary Diaphragmatic hernia without mention of obstruction or gangrene History of colon cancer- Primary Personal history of malignant neoplasm of large intestine Paraesophageal hiatal hernia Diaphragmatic hernia without mention of obstruction or gangrene documented in this encounter Advance Directives Documents on File Type Date Recorded Patient Design Verification Engineer Expl 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 Question Answer Comments Discussion of Advance Directives occurred with: Patient Care Teams Jd Edwards Developer Relationship Specialty Start Date End Date Lana Eden MD [address] [place] [address] PCP - General Internal Medicine 12/04/20 documented as of this encounter
--- OUTSIDE RECORDS SUMMARY | 2024-02-20 11:46 | External Medical Summary ---
Author Name Unknown Address Unknown Organization : Laboratory Report Ordering Provider Test Date Status JEANNETTE MCNEIL 11/28/2023 17:09:34 Final Observation Date Value Abnormality Reference (Units ) Status Glucose Point of Care 11/28/2023 17:09:34 187 Above high normal 70-120 (mg/dL) Final Performing Location
--- OUTSIDE RECORDS SUMMARY | 2024-02-20 11:46 | External Medical Summary | Summary of Care ---
Author Name Unknown Organization [facility] Address [address] [place] [address] Phone [phone] Care Team Providers Care Site Reliability Engineer Name Role Phone Lana Eden MD Primary Care Provider [phone] Reason for Visit * Reason Onset Date Comments Health Maintenance 11/24/2023 Encounter Details Date Type Department Care Team (Late st Contact Info) Description 11/24/2023 Telephone General Internal Medicine [facility] [address] [facility] [place] [address] Lana Eden MD [address] [place] [address] Health Maintenance Allergies Active Allergy Reactions Criticality Noted Date Comments Amoxicillin-Pot Clavulanate 02/24/20 19 Codeine High 01/05/2020 Other reaction(s): "I GOT REALLY SICK" Hydrocodone Bit-Homatrop Mbr 017 Levothyroxine Sodium Hives,Rash High 10/01/2010 documented as of this encounter (statuses as of 11/24/2023) Medications Medication Sig Dispensed Refills Start Date [...] rhinitis, unspecified seasonality, unspecified trigger Administer 1 [place] into nostril in the morning and 1 [place] before bedtime. 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 07/30 Steroid-induced [...] as of this encounter (statuses as of 11/24/2023) Resolved Problems Problem Noted Date Diagnosed Date [...] as of this encounter (statuses as of 11/24/2023) Immunizations Name Administration Dates Next Due COVID-19 [...] No 08/05/2023 documented as of this encounter Miscellaneous Notes * Telephone Encounter - Diane Blackwood LPN - 11/24/2023 12:57 PM EDT Care Gaps Comprehensive Care Outreach Last Office/Telemedicine Visit: 10/20/2023 (in office), 09/24/2019 (telemedicine) Next Office Visit: 04/22/2024 Hemoglobin AIC Results: Lab Results Component Value Date/Time HEMOGLOBIN A1C - [facility] 6.7 (H) 11/07/2023 03:07 PM HEMOGLOBIN A1C - [facility] 6.9 (H) 10/10/2023 08:21 AM HEMOGLOBIN A1C - [facility] 5.9 (H) 07/28/2023 08:49 AM BP Readings from Last 1 Encounters: 11/07/23 135/69 Reviewed Health Maintenance below: Health Maintenance Topic Date Due COVID-19 Vaccine ( season) 2023 Diabetic Eye Exam 07/16/2023 Diabetic Foot Exam 11/06/2023 Adult Wellness Visit 12/28/2023 Influenza Vaccine (FLU shot) (1) 12/14/2023 Depression Screening 12/28/2023 DTaP,Tdap,and Td Vaccines (3 - Td or Tdap) 12/30/2023 Hernia surgery this week Eye heimer requested Awv dec 27 my g Care Gap Outreach Action Taken: MyChart message sent documented in this encounter Plan of Treatment Upcoming Encounters Date Type Department Care Team (Latest Contact Info) Description 11/26/2023 11:30 AM EDT Office Visit Cardiology, [facility] [address] [place] [address] Billy Anthony PA-C [address] [place], [place] [phone] 11/28/2023 11:28 AM EDT Hospital Encounter [place] [facility] [facility] [address] [facility] [place] [phone] Christophe Henriquez MD [address] [place], [place] [address] 11/28/2023 11:28 AM EDT Anesthesia Event [place] [facility] [facility] [address] [facility] [place] [phone] Ramiro Skelton CRNP [address] [place], [place] [phone] 11/28/2023 11:28 AM EDT - 11/28/2023 4:12 PM EDT Surgery [place] [facility] [facility] [address] [facility] [place] [phone] Christophe Henriquez MD [address] [place], [place] [phone] LAPAROSCOPIC PARAESOPHAGEAL HERNIA REPAIR WO/ MESH 12/12/2023 2:00 PM EDT Office Visit General Surgery, [facility] [address] [place] [address] Anna Ash MD [address] [place] [address] 01/06/2024 3:00 PM EDT [facility] [address] [place] [phone] Pepito Chiang MD [address] [place] [address] 02/24/2024 1:40 PM EST Office Visit Rheumatology [facility] [address] [facility] [place], [place] [address] Niraj Shukla MD [address] [facility] [place], [place] [address] 04/22/2024 1:40 PM EST Office Visit General Internal Medicine [facility] [address] [facility] [place], [place] [address] Lana Eden MD [address] [facility] [place] [address] 05/19/2024 3:00 PM EST Telemedicine General Surgery, [place] [address] [place] [address] Best Shelley MD [address] [place], [place] [phone] 09/02/2024 2:00 PM EDT Office Visit Cardiology, [facility] [address] [place] [address] Billy Anthony PA-C [address] [place] [address] Scheduled Procedures Name Priority Associated Diagnoses Date/Ti [...] 11/13/2022, Additional history exists GFR 11/06/2024 11/07/2023, 07/0 05/2023, 10/10/2023, Additional history exists Pneumococcal Vaccine: 65+ Years Completed 05/20/2017, 11/08/2015 Zoster Vaccines Completed 08/18/2019, 04/16, 06/12/2011 VITAMIN D LEVEL ONCE IN A LIFETIME-USE SMARTSET# [id number] Completed 02/10/2023, 11/20/2021, 05/08/2021 Hepatitis B Vaccine [...] Documents on File Type Date Recorded 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 Question Answer Comments Discussion of Advance Directives occurred with: Patient Care Teams Site Reliability Engineer Relationship Specialty Start Date End Date Lana Eden MD [address] [place] [address] PCP - General Internal Medicine 12/04/20 documented as of this encounter
--- OUTSIDE RECORDS SUMMARY | 2024-02-20 11:46 | External Medical Summary ---
Author Name Unknown Address Unknown Organization : Laboratory Report Ordering Provider Test Date Status CM ABEL 11/28/2023 10:48:33 Final Observation Date Value Abnormality Reference (Units ) Status Glucose Point of Care 11/28/2023 10:48:33 143 Above high normal 70-120 (mg/dL) Final Performing Location
--- OUTSIDE RECORDS SUMMARY | 2024-02-20 11:46 | External Medical Summary | Summary of Care ---
Author Name Unknown Organization [facility] Address [address] [place] [address] Phone [phone] Care Team Providers Care Rail Walker Name Role Phone Lana Eden MD Primary Care Provider [phone] Reason for Visit * Reason Comments eRx-Medication Refill Encounter Details Date Type Department Care Team (Late st Contact Info) Description 11/18/2023 Refill General Internal Medicine [facility] [address] [facility] [place] [address] Niraj Shukla MD [address] [place] [address] Multiple subsegmental pulmonary emboli without acute cor pulmonale (HCC); Polymyalgia rheumatica (HCC) Allergies Active Allergy Reactions Criticality Noted Date Comments Amoxicillin-Pot Clavulanate 02/24/20 19 Codeine High 01/05/2020 Other reaction(s): "I GOT REALLY SICK" Hydrocodone Bit-Homatrop Mbr 017 Levothyroxine Sodium Hives,Rash High 10/01/2010 documented as of this encounter (statuses as of 11/19/2023) Medications Medication Sig Dispensed Refills Start Date [...] rhinitis, unspecified seasonality, unspecified trigger Administer 1 [place] into nostril in the morning and 1 [place] before bedtime. 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 07/30 Steroid-induced [...] as of this encounter (statuses as of 11/19/2023) Resolved Problems Problem Noted Date Diagnosed Date [...] as of this encounter (statuses as of 11/19/2023) Immunizations Name Administration Dates Next Due COVID-19 [...] encounter Miscellaneous Notes * Telephone Encounter - Aarti Torres [facility] - 11/19/2023 8:43 AM EDTRefused Prescriptions: Disp Refills predniSONE 2.5 MG Oral Tablet (Deltasone) 90 Tab*3 Sig: TAKE 1 TABLET IN THE MORNINGRefused By: [facility] Refusal: Patient Should Contact Provider Paulie for Refusal Comment: [email or web address] 10/20/23 * Telephone Encounter - Aarti Torres [facility] - 11/19/2023 8:42 AM EDT Pending Prescriptions: Disp Refills predniSONE 2.5 MG Oral Tablet (Deltasone)*90 Tab*3 Sig: TAKE 1 TABLET IN THE MORNING Last Visit: 10/20/2023 (in office), 09/24/2019 (telemedicine) Next Visit: 04/22/2024 If no future appointments scheduled, and last appointment is greater than a year ago, please schedule patient for a follow-up appointment Last date the medication was ordered: 11/25/22 Pharmacy: [facility] [address]- [place] Is this request for a controlled substance? No Urine Drug Screen:No results found for this or any previous visit. Patient Phone Numbers Labs: Lab Results Component Value Date/Time CREAT 0.9 11/07/2023 03:07 PM CREAT 1.5 (A) 11/13/2022 12:00 AM CREAT 1.0 07/07/2010 01:35 PM POTASSIUM 4.0 11/07/2023 03:07 PM POTASSIUM 3.7 05/01/2021 12:00 AM POTASSIUM 3.8 07/07/2010 01:35 PM TSH 1.79 05/08/2021 01:23 PM TSH 3.090 09/05/2020 12:00 AM TSH 3.84 07/07/2010 01:35 PM LDLCALC 44 04/05/2021 12:00 AM LDLCALC 42 08/11/2009 08:36 AM LDLDIRECT 67 10/10/2023 08:21 AM LDLDIRECT 77 03/17/2020 12:00 AM ALT 23 11/07/2023 03:07 PM ALT 48 03/17/2020 12:00 AM ALT 29 07/07/2010 01:35 PM HGBA1C 6.7 (H) 11/07/2023 03:07 PM HGBA1C 6.2 (A) 05/01/2021 12:00 AM documented in this encounter Plan of Treatment Upcoming Encounters Date Type Department Care Team (Latest Contact Info) Description 11/20/2023 2:45 PM EDT Telemedicine General Surgery, [place] [address] [place] [address] Best Shelley MD [address] [place] [address] 11/26/2023 11:30 AM EDT Office Visit Cardiology, [facility] [address] [facility] [place] [address] Billy Anthony PA-C [address] [place] [address] 11/28/2023 11:28 AM EDT Hospital Encounter [place] [facility] [address] [place] [facility] [phone] Christophe Henriquez MD [address] [place] [address] 11/28/2023 11:28 AM EDT Anesthesia Event [place] [facility] [address] [place] [facility] [phone] Ramiro Skelton CRNP [address], [place] [id number] 11/28/2023 11:28 AM EDT - 11/28/2023 4:12 PM EDT Surgery OR [facility] [place] [address] [place] [phone] Christophe Henriquez MD [address], [place] [id number] LAPAROSCOPIC PARAESOPHAGEAL HERNIA REPAIR WO/ MESH 12/12/2023 2:00 PM EDT Office Visit General Surgery, [facility] [address] [place] [address] Anna Ash MD [address] [place] [address] 01/06/2024 3:00 PM EDT Office Visit Hematology/Oncolog y [facility] [place] [place] [address] [place] [phone] Pepito Chiang MD [address] [place] [address] 02/24/2024 1:40 PM EST Office Visit Rheumatology [place] [id number] [facility] [place] [address] Niraj Shukla MD [facility] [place] [address] 04/22/2024 1:40 PM EST Office Visit General Internal Medicine [facility] [address] [facility] [place], [place] [address] Lana Eden MD [address] [facility] [place] [place] [address] 09/02/2024 2:00 PM EDT Office Visit Cardiology, [facility] [address] [place] [address] Billy Anthony PA-C [address] [place] [address] Scheduled Procedures Name Priority Associated Diagnoses Date/Ti [...] exists Diabetic Foot Exam 11/06/2023 11/05/2022 (C ourse Completed), 08/09/2021 Influenza Vaccine (FLU shot) (#1) [...] D LEVEL ONCE IN A LIFETIME-USE SMARTSET# [id number] Completed 02/10/2023, 11/20/2021, 05/08/2021 Hepatitis B Vaccine [...] pulmonary emboli without acute cor pulmonale (HCC) Polymyalgia rheumatica (HCC) Polymyalgia rheumatica Paraesophageal hiatal hernia Diaphragmatic hernia without mention of obstruction or gangrene documented in this encounter Advance Directives Documents on File Type Date 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 Question Answer Comments Discussion of Advance Directives occurred with: Patient Care Teams Rail Walker Relationship Specialty Start Date End Date Lana Eden MD [address] [place] [address], [place] [address] PCP - General Internal Medicine 12/04/20 documented as of this encounter
--- OUTSIDE RECORDS SUMMARY | 2024-02-20 11:46 | External Medical Summary ---
Author Name Unknown Address Unknown Organization : Laboratory Report Ordering Provider Test Date Status JEANNETTE MCNEIL 11/28/2023 14:38:28 Final Observation Date Value Abnormality Reference (Units ) Status Glucose Point of Care 11/28/2023 14:38:28 228 Above high normal 70-120 (mg/dL) Final Performing Location
--- OUTSIDE RECORDS SUMMARY | 2024-02-20 11:46 | External Medical Summary | Summary of Care ---
Author Name Unknown Organization [facility] Address [address] [place] [address] Phone [phone] Care Team Providers Care Yarn Weigher Name Role Phone aLna Eden MD Primary Care Provider [phone] Reason for Visit * Reason Comments Follow Up * Evaluate & Treat - Unlimited Visits (Within 3 days (urgent)) - Authorized Specialty Diagnoses / Procedures Referred By Contact Referred To Contact Cardiovascular Medicine / Cardiology Diagnoses Paraesophageal hernia Billy Anthony PA-C [address] [place] [address] Referral ID Status Reason Start Date Expiration Date Visits Requested Visits Authorized [id number] Authorized Specialty Services Required 11/13/[phone] Encounter Details Date Type Department Care Team (Latest Contact Info) Description 11/26/2023 11:30 AM EDT Office Visit Cardiology, [facility] [address] [place] [id number] Billy Anthony PA-C [address] [place] [address] Preoperative cardiovascular examination*; SVT (supraventricular tachycardia) (HCC); PVC (premature ventricular contraction); HTN, goal below 140/90; Hyperlipidemia with target LDL less than 100; Polymyalgia rheumatica (HCC) Allergies Active Allergy Reactions Criticality Noted Date Comments Amoxicillin-Pot Clavulanate 02/24/20 19 Codeine High 01/05/2020 Other reaction(s): "I GOT REALLY SICK" Hydrocodone Bit-Homatrop Mbr 017 Levothyroxine Sodium Hives,Rash High 10/01/2010 documented as of this encounter (statuses as of 11/27/2023) Medications Medication Sig Dispensed Refills Start Date [...] rhinitis, unspecified seasonality, unspecified trigger Administer 1 [place] into nostril in the morning and 1 [place] before bedtime. 90 mL 3 04/03/2023 Active [...] by mouth in the morning. 11/27/2023 Active predniSONE 10 MG Oral Tablet (Deltasone)Indica tions:Polymyalgia rheumatica (HCC) Take 1 Tablet by mouth in the morning. Taking 5 mg daily now. 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 07/30 [...] as of this encounter (statuses as of 11/27/2023) Resolved Problems Problem Noted Date Diagnosed Date [...] as of this encounter (statuses as of 11/27/2023) Immunizations Name Administration Dates Next Due COVID-19 [...] Sign Reading Time Taken Comments Blood Pressure 152/86 11/26/2023 11:34 AM EDT Pulse 84 11/26/2023 11:34 AM EDT Temperature - - Respiratory Rate 16 11/26/2023 11:3 4 AM EDT Oxygen Saturation - - Inhaled Oxygen Concentration - - Weight 92.9 kg (204 lb 12.8 oz) 024 11:34 AM EDT Height - - Body Mass Index 34.08 11/07/2023 1:13 PM EDT documented in this encounter Functional [...] as of this encounter Progress Notes * Billy Anthony PA-C - 11/26/2023 11:51 AM EDT History of Present Illness: Harpreet Oneal is a 83 year old male who returns today for preoperative cardiology consultation prior to laparoscopic repair of a paraesophageal hernia at [facility] on 11/28/[address] Henriquez Patient presents today feeling well. Patient states "I feel great, the best I have felt in who knows how long." Notes weaning himself off of Prednisone, down to 5 mg/day. He notes that he can do a lot more now with less shortness of breath He notes, when [place] [facility] [place], walking from the "Flex Entrance" to the cafeteria without feeling winded, without needing to stop and rest Notes recently walking to the neighbors, three blocks away, without cardiopulmonary symptoms. Uses a walker for stability when walking long distances. No chest pain or discomfort. No tachypalpitations, only aware of heart rates via his smart watch No resting or nocturnal shortness of breath. No cough, chest congestion, orthopnea, PND, or peripheral edema. No lightheadedness, dizziness, near syncope, or syncope. No recent colds, fevers, chills, night sweats. No epistaxis. No hemoptysis. No hematuria. Stools are dark brown, on oral iron replacement, constipation aided by eating prunes. Problem List: Atrial and ventricular ectopy Symptomatic and asymptomatic paroxysmal SVT Ventricular tachycardia via Zio monitoring Preserved LV systolic function Exertional dyspnea, attributed by the patient to be secondary to deconditioning. Chronically abnormal EKG Hypertension Dyslipidemia Esophagitis Large hiatal hernia Esophageal dysmotility Abnormal SPEP and serum immunofixation. 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 Past Medical History: Diagnosis Date Colon polyps 12/11/2011 DM2 (diabetes mellitus, type 2) (HCC) Dyslipidemia, goal LDL below 160 HTN, goal below 140/90 Hypogonadism in male 10/30/2020 Impacted cerumen 2004 Sensorineural hearing loss, bilateral 2004 SVT (supraventricular tachycardia) (HCC) Vertigo 2004 Past Surgical History: Procedure Laterality Date COLONOSCOPY 2001 [place]/10 years follow up COLONOSCOPY, DIAGNOSTIC (RECTUM) 09/03/2017 adenomatous polyp, diverticulosis/[facility] COLONOSCOPY, DIAGNOSTIC (RECTUM) 07/17/2023 COLONOSCOPY FLEXIBLE PROXIMAL DIAGNOSTIC performed by Chet Bhagat DO at ENDOSCOPY [facility] EGD, FLEXIBLE, DIAGNOSTIC 02/10/2019 acid reflux, hiatal hernia, repeat 2 mo / [facility] EGD, FLEXIBLE, DIAGNOSTIC 05/11/2019 acid reflux, hiatal hernia / [facility] EGD, FLEXIBLE, DIAGNOSTIC 07/17/2023 ESOPHAGOGASTRODUODENOSCOPY (EGD), FLEXIBLE, TRANSORAL, DIAGNOSTIC performed by Chet Bhagat DOat ENDOSCOPY [facility] LAPAROSCOPIC COLECTOMY PARTIAL WITH ANASTOMOSIS N/A 08/05/2023 LAPAROSCOPIC PARTIAL COLECTOMY WITH ANASTOMOSIS performed by Best Shelley MD at [place] [facility] MISCELLANEOUS ORDER ([facility] ONLY) 10/08/2019 skin lesion removed left forehead REMOVE CATARACT, INSERT LENS PROSTH 2018 bilateral Family History Problem Relation Name Age of Onset Cancer Mother melanoma Neurological Disorder Father Parkinson's Other (Other) Father AAA No Known Problems Sister Other (Other) Grandfather (Paternal) AAA Melanoma Aunt (Maternal) Melanoma Uncle (Maternal) Glaucoma Uncle (Paternal) Social History Socioeconomic History Marital status: Spouse name: Not on file Number of children: Not on file Years of education: Not on file Highest education level: Not on file Occupational History Not on file Tobacco Use Smoking status: Former Current packs/day: 0.00 Average packs/day: 1 pack/day for 20.0 years (20.0 ttl pk-yrs) Types: Cigarettes Start date: 09/12/1962 Quit date: 09/12/1982 Years since quittin.2 Smokeless tobacco: Never Tobacco comments: quit summer Vaping Use Vaping status: Never Used Substance and Sexual Activity Alcohol use: Yes Comment: one drink once a week Drug use: No Sexual activity: Yes Partners: Female Other Topics [...] on file Food Insecurity: No Food Insecurity (08/05/2023) Food Insecurity Do you need food for [...] on file Transportation Needs: No Transportation Needs (08/05/2023) Transportation Needs Do you have trouble getting [...] and over): Not on file Do you (or your family) have trouble finding or paying for a ride (transportation)? (Household - for ages 0-17 years): Not on file Social Connections: Socially Integrated (12/27/2022) Social Connections How often do you feel lonely or isolated from those around you? (Adult - for ages 18 years and over): Never Housing Stability: Low Risk (08/05/2023) Housing Stability Do you currently live in a residential or have no steady place to sleep [...] 18 years and over): Not on file Are you (or your family) homeless or worried that you might be in the future? (Household - for ages0-17 years): Not on file Complete Review of Systems is as stated above, negative, or noncontributory. Allergies as of 11/26/2023 - Reviewed 11/26/2023 Allergen Reaction Noted Codeine 01/05/2020 Synthroid [levothyroxine sodium] Hives and Rash 10/01/2010 Augmentin [amoxicillin-pot clavulanate] 02/23/2019 Hydrocodone bit-homatrop mbr 08/27/2016 Current Outpatient Medications Medication Sig Dispense Refill [...] 0.1 % Nasal Solution (Astelin) Administer 1 [place] into nostril in the morning and 1 [place] before bedtime. 90 mL 3 Furosemide 20 [...] 1 Tablet by mouth in the morning. Ondansetron HCl 4 MG Oral Tablet Take 1 Tablet by mouth every 8 hours as needed for Nausea (After surgery). (Patient not taking: Reported on 11/26/2023) 20 Tablet 0 No current facility-administered medications for this visit. PHYSICAL EXAMINATION: BP 152/86 | Pulse 84 | Resp 16 | Wt 92.9 kg (204 lb 12.8 oz) | BMI 34.08 kg/m | BSA 2.06 m General: A&Ox3. NAD. Skin: No rash Eyes: PER. Conjunctiva pink, sclera clear. HENT: Normocephalic. Atraumatic. Neck: No carotid bruits. No JVD. No HJR. Heart: Irregular at 90 bpm. Soft systolic murmur. Lungs: Diminished. Clear. No wheeze. Abdomen: +BS. Soft. Extremities: No significant edema. No clubbing. No cyanosis Pulses: radial=2/4, posterior tibial=1-2/4. Limited neurological examination: No focal deficit. Data: May 23, 2021 Lexiscan Interpretation Summary (as per Dr. Callahan): The combined low intensity exercise/Lexiscan myocardial perfusion imaging study revealed normal resting and stress perfusion. without evidence of infarction or inducible ischemia. The stress EKG response was nondiagnostic for excluding ischemia with mild baseline repolarization changes that persisted during stress without significant interval change. Frequent supraventricular and ventricular ectopy was present on the stressEKG. Gated SPECT imaging reveals normal myocardial thickening and wall motion. The left ventricularejection fraction was calculated to be > 70%. May 16, 2022 TTE Interpretation Summary ([facility], Dr. Callahan): Sinus tachycardia with frequent ventricular contractions present during echocardiogram study. Normal LV wall thickness. Normal LV wall motion. Hyperdynamic LV function. Ejection fraction 65 to 70%. Mild aortic valve sclerosis without significant stenosis. Doppler findings do not suggest pulmonary hypertension. November 26, 2023 EKG: Sinus rhythm at 94 bpm with marked sinus arrhythmia, premature atrial complexes, nonspecific ST-T wave abnormality, prolonged QT (482 ms). When compared to prior EKG is dating back to 2009, there is no significant change. IMPRESSION: 83-year-old male here today for preoperative cardiology consultation as detailed above.Options discussed. Risks explained, at least a moderate estimated risk of adverse outcome with thisnoncardiac surgery. Patient without new or worsening cardiac symptoms. No history of ACS, PCI, or CABG in the past year. Functional capacity improved, and considered acceptable. Further cardiac testing offered and declined, not likely influencing perioperative management. OK to proceed with surgeryas planned without further preoperative cardiac testing. Recommend uninterrupted continuation of metoprolol and diltiazem perioperatively. Recommend holding furosemide and Irbesartan the morning of the procedure, resuming postoperatively as hemodynamics permit. Suggested minimum hold time for apixaban (Eliquis) is 3 days prior to the procedure. Billy Anthony PA-C Department of Cardiology I spent a total of 40-54 minutes (exact time 40 mins) on the date of service in preparation, delivery, and documentation of the care provided to Harpreet Oneal excluding any time spent in the performance of separately billed services. This visit involved medical care services related to at least one serious condition or complex condition requiring ongoing care. This chart was completed in part ut [employer] Voice Recognition Software. Grammatical errors, random word insertions, prounoun errors, and incomplete sentences are an occasional consequence of this system due to software limitations, ambient noise, and hardware issues. Any formal questions or concerns about the content, text, or information contained within the body of this dictation should be directly addressed to theprovider for clarification. documented in this encounter Procedure Notes * Tono Callahan, DO - 11/26/2023 11:44 AM EDTAssociated Order(s): EKG REASON FOR STUDY: Pre-op;Pre-op CONCLUSIONS: Sinus rhythm with marked sinus arrhythmia Nonspecific ST and T wave abnormality Prolonged QT interval or tu fusion, consider myocardial disease, electrolyte imbalance, or drug effects Abnormal ECG When compared with ECG of 07-Nov-2023 14:50, Premature atrial complexes are no longer Present Nonspecific T wave abnormality no longer evident in Anterior leads Ventricular Rate: 94 Atrial Rate: 94 [place] Interval: 186 QRS Duration: 72 QT/QTc: 386/482 ms P-R-T [place]: 51 : 51 : -9 degrees documented in this encounter Nursing Notes * Rafaela Garay CMA - 11/26/2023 11:32 AM EDT Chief Complaint Patient presents with Follow Up Examination Room: 1 Name: Harpreet Oneal Date of : (1940). Reason for Visit: Pre-op Interim Hospitalization(s): Denies Problems/Concerns: Hernia surgery 11/27 [facility] [place]. Martinez Graves Chest Pain/SOB: Denies, feels well from a cardiac standpoint [facility] Discussed: Yes [facility] is a way you can talk to your provider online through e-mail. Would you like to sign up? I can activate it for you? ALREADY ACTIVE Patient was instructed to not get up on the exam table until directed and assisted by their provider; patient is to remain seated in the chair/ wheelchair/ exam table for fall prevention and safety reasons. Patient is aware to have assistance to step down off exam table with personnel. Patient voiced full comprehension of instructions. documented in this encounter Plan of Treatment Upcoming Encounters Date Type Department Care Team (Latest Contact Info) Description 11/28/2023 11:08 AM EDT Hospital Encounter [place] [facility] [address] [place] [phone] Christophe Henriquez MD [address], [place] [id number] 11/28/2023 11:08 AM EDT - 11/28/2023 3:52 PM EDT Surgery [place] [facility] [address] [place] [phone] Christophe Henriquez MD [address] [place] [address] LAPAROSCOPIC PARAESOPHAGEAL HERNIA REPAIR WO/ MESH 12/12/2023 2:00 PM EDT Office Visit General Surgery, [facility] [address] [facility] [place] [address] Anna Ash MD [address] [place] [address] 01/06/2024 3:00 PM EDT Office Visit Hematology/Oncolog y [facility] [address] [place], [place] [phone] Pepito Chiang MD [address] [facility] [place], [place] [address] 02/24/2024 1:40 PM EST Office Visit Rheumatology [place] [id number] [facility] [place] [address] Niraj Shukla MD [facility] [place], [place] [address] 04/22/2024 1:40 PM EST Office Visit General Internal Medicine [facility] [address] [place], [place] [address] Lana Eden MD [address] [facility] [place], [place] [address] 05/19/2024 3:00 PM EST Telemedicine General Surgery, [place] [address] [place] [address] Best Shelley MD [address] [place] [address] 09/02/2024 2:00 PM EDT Office Visit Cardiology, [facility] [address] [facility] [place] [address] Billy Anthony PA-C [address] [facility] [place] [address] Scheduled Procedures Name Priority Associated Diagnoses Date/Ti me LAPAROSCOPIC PARAESOPHAGEAL HERNIA REPAIR WO/ MESH Paraesophageal hiatal hernia 11/28/2023 11:08 AM EDT LAPAROSCOPIC PARAESOPHAGEAL HERNIA REPAIR W/MESH Paraesophageal hiatal hernia 11/28/2023 11:08 AM EDT ESOPHAGOGASTRODUODENOSCOPY ( EGD), FLEXIBLE, TRANSORAL, DIAGNOSTIC Paraesophageal hiatal hernia 11/28/2023 11:08 AM EDT COLONOSCOPY FLEXIBLE PROXIMA L DIAGNOSTIC Recall History of colonic polyps Health Maintenance Due Date Last Done Comments COVID-19 Vaccine ( season) 2023 02/25/2023, 01/11/2022, 08/25/2021, Additional history exists Diabetic Foot Exam 11/06/2023 11/05/2022 (Precious gustafsone Completed), 08/09/2021 Influenza Vaccine (FLU shot) (#1) [...] 11/13/2022, Additional history exists GFR 11/06/2024 11/07/2023, 05/2023, 10/10/2023, Additional history exists Pneumococcal Vaccine: 65+ Years Completed 05/20/2017, 11/08/2015 Zoster Vaccines Completed 08/18/2019, 04/16, 06/12/2011 VITAMIN D LEVEL ONCE IN A LIFETIME-USE SMARTSET# [id number] Completed 02/10/2023, 11/20/2021, 05/08/2021 Hepatitis B Vaccine [...] Procedure Name Priority Date/Time Associated Diagnosis Comments KS ECG ROUTINE ECG W/LEAST 12 LDS I&R ONLY Routine 11/26/2023 11:44 AM EDT SVT (supraventricular tachycardia) (HCC) PVC (premature ventricular contraction) HTN, goal below 140/90 documented in this encounter Results * EKG (11/26/2023 11:44 AM EDT) 11/26/2023 11:4 4 AM EDT Narrative Procedure Note Tono Callahan, - 11/26/2023 11:44 AM EDT REASON FOR STUDY: Pre-op;Pre-op CONCLUSIONS: Sinus rhythm with marked sinus arrhythmia Nonspecific ST and T wave abnormality Prolonged QT interval or tu fusion, consider myocardial disease,electrolyte imbalance, or drug effects Abnormal ECG When compared with ECG of 07-Nov-2023 14:50, Premature atrial complexes are no longer Present Nonspecific T wave abnormality no longer evident in Anterior leads Ventricular Rate: 94 Atrial Rate: 94 [place] Interval: 186 QRS Duration: 72 QT/QTc: 386/482 ms P-R-T [place]: 51 : 51 : -9 degrees Billy Anthnoy PA-C EKG [facility] documented in this encounter Visit Diagnoses Diagnosis Paraesophageal hiatal hernia- Primary Diaphragmatic hernia without mention of obstruction or gangrene Preoperative cardiovascular examination- Primary Pre-operative cardiovascular examination SVT (supraventricular tachycardia) (HCC) Other specified cardiac dysrhythmias PVC (premature ventricular contraction) Other premature beats HTN, goal below 140/90 Unspecified essential hypertension Hyperlipidemia with target LDL less than 100 Other and unspecified hyperlipidemia Polymyalgia rheumatica (HCC) Polymyalgia rheumatica Paraesophageal hiatal hernia Diaphragmatic hernia without mention of obstruction or gangrene documented in this encounter Advance Directives Documents on File Type Date Recorded 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 Question Answer Comments Discussion of Advance Directives occurred with: Patient Care Teams Yarn Weigher Relationship Specialty Start Date End Date Lana Eden MD [address] [place] [address] PCP - General Internal Medicine 12/04/20 documented as of this encounter
--- OUTSIDE RECORDS SUMMARY | 2024-02-20 11:47 | External Medical Summary | Summary of Care ---
Author Name Unknown Organization [facility] Address [address] [place] [address] Phone [phone] Care Team Providers Care Electric Engine Mechanic Name Role Phone Lana Eden MD Primary Care Provider [phone] Reason for Visit * Reason Onset Date Comments Pre-op Clearance 11/13/2023 Encounter Details Date Type Department Care Team (Late st Contact Info) Description 11/13/2023 Telephone Cardiology, [facility] [address] [facility] [place] [address] Billy Anthony PA-C [address] [place] [address] Pre-op Clearance Allergies Active Allergy Reactions Criticality Noted Date Comments Amoxicillin-Pot Clavulanate 02/24/20 19 Codeine High 01/05/2020 Other reaction(s): "I GOT REALLY SICK" Hydrocodone Bit-Homatrop Mbr 017 Levothyroxine Sodium Hives,Rash High 10/01/2010 documented as of this encounter (statuses as of 11/13/2023) Medications Medication Sig Dispensed Refills Start Date [...] rhinitis, unspecified seasonality, unspecified trigger Administer 1 [place] into nostril in the morning and 1 [place] before bedtime. 90 mL 3 04/03/2023 Active [...] Hypokalemia Take 2 Tablets by mouth daily. 90 Tablet 3 10/10/2023 Active predniSONE 10 MG Oral Tablet (Deltasone)Indicati ons:Polymyalgia [...] 300 mg by mouth every evening. 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 Cristiane Enriquez PA-C Lombardo, Mark S, PA-C Hi thanks so much for your reply. I would really appreciate if you could see him for cardiac clearance. Would you like me to call him and tell him to schedule an appointment with you? -Cristiane ----- Message ----- From: Billy Anthony PA-C Sent: 11/10/2023 3:57 PM EDT To: Cristiane Enriquez PA-C Subject: RE: cardiac clearance His EKG appears to be chronically abnormal. He declined all of my recommendations when I saw him last. Happy to see and provide clearance; this may delay surgery. Billy Parks ----- Message ----- From: Cristiane Enriquez PA-C Sent: 11/10/2023 7:01 AM EDT To: Billy Anthony PA-C Subject: cardiac clearance Good morning. I recently saw our patient Harpreet Oneal for paraesophageal hernia repair schedule 11/28/23. His last few EKGs have been abnormal. Do you think cardiac clearance/further testing from your team is warranted before his surgery? Thanks so much, Cristiane Enriquez PA-C * Telephone Encounter - Akanksha Palma OSA - 11/13/2023 1:32 PM EDT Person calling: pt Relationship to patient: pt Number to return call: [phone] Reason for call(brief): pre op Pharmacy: na Provider Name:Raj Detailed message to office:pt is calling to ask if he needs to come for a visit for pre op hiatal hernia repair [place] 11/28/23 [place] [facility] Last seen 08/2023 Thank you documented in this encounter Plan of Treatment Upcoming Encounters Date Type Department Care Team (Latest Contact Info) Description 11/20/2023 2:45 PM EDT [facility] [address], [place] [phone] Best Shelley MD [address] [place] [address] 11/28/2023 11:28 AM EDT Hospital Encounter [place] [facility], OPERATING ROOM [facility] [address] [place] [phone] Christophe Henriquez MD [address] [place] [address] 11/28/2023 11:28 AM EDT Anesthesia Event OR [facility], OPERATING ROOM [facility] [address] [facility] [place] [phone] Ramiro Skelton CRNP [address] [place] [address] 11/28/2023 11:28 AM EDT - 11/28/2023 4:12 PM EDT Surgery OR [facility], OPERATING ROOM [facility] [address] [facility] [place] [address] Christophe Henriquez MD [address] [place] [address] LAPAROSCOPIC PARAESOPHAGEAL HERNIA REPAIR WO/ MESH 12/12/2023 2:00 PM EDT Office Visit General Surgery, [facility] [address] [place] [address] Anna Ash MD [address] [place] [address] 01/06/2024 3:00 PM EDT Office Visit Hematology/Oncolog y [facility] [address] [place] [address] Pepito Chiang MD [address] [place] [address] 02/24/2024 1:40 PM EST Office Visit Rheumatology [facility] [address] [place] [address] Niraj Shukla MD [address] [place], [place] [address] 04/22/2024 1:40 PM EST Office Visit General Internal Medicine [facility] [address] [place] [address] Lana Eden MD 200 [facility] [place], [place] [address] 09/02/2024 2:00 PM EDT Office Visit Cardiology, [facility] [address] [place] [address] Billy Anthony PA-C [address] [place], [place] [phone] Scheduled Procedures Name Priority Associated Diagnoses Date/Ti ne LAPAROSCOPIC PARAESOPHAGEAL HERNIA REPAIR WO/ MESH Paraesophageal [...] exists Diabetic Foot Exam 11/06/2023 11/05/2022 (C janaye Completed), 08/09/2021 Influenza Vaccine (FLU shot) (#1) 2023 12/27/2022, 12/19/2021, 01/10/2021, Additional history exists Depression Screening 12/28/2023 12/27/2022 DTaP,Tdap,and Td Vaccines [...] D LEVEL ONCE IN A LIFETIME-USE SMARTSET# 14938 Completed 02/10/2023, 11/20/2021, 05/08/2021 Hepatitis B Vaccine [...] Documents on File Type Date Recorded 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 Question Answer Comments Discussion of Advance Directives occurred with: Patient Care Teams Electric Engine Mechanic Relationship Specialty Start Date End Date Lana Eden MD [address] [facility] [place] [address] PCP - General Internal Medicine 12/04/20 documented as of this encounter
--- OUTSIDE RECORDS SUMMARY | 2024-02-20 11:47 | External Medical Summary | Summary of Care ---
Author Name Unknown Organization [facility] Address [address] [place] [address] Phone [phone] Care Team Providers Care General Technician Name Role Phone Lana Eden MD Primary Care Provider Reason for Visit * Reason Comments eRx-Medication Refill Encounter Details Date Type Department Care Team (Late st Contact Info) Description 11/15/2023 Refill Cardiology, [facility] [address] [facility] [place] [address] Deb Webb PAXimena [address] [place] [address] Hypokalemia Allergies Active Allergy Reactions Criticality Noted Date Comments Amoxicillin-Pot Clavulanate 02/24/20 19 Codeine High 01/05/2020 Other reaction(s): "I GOT REALLY SICK" Hydrocodone Bit-Homatrop Mbr 017 Levothyroxine Sodium Hives,Rash High 10/01/2010 documented as of this encounter (statuses as of 11/17/2023) Medications Medication Sig Dispensed Refills Start Date [...] rhinitis, unspecified seasonality, unspecified trigger Administer 1 [place] into nostril in the morning and 1 [place] before bedtime. 90 mL 3 04/03/2023 Active [...] Acti ve predniSONE 10 MG Oral Tablet (Deltasone)Indicat ions:Polymyalgia rheumatica (HCC) Take 1 Tablet by mouth in the morning. Taking 5 mg daily now. 10/20/2023 Active Ondansetron HCl 4 MG Oral TabletIndications: Paraesophageal hiatal hernia,Hyperlipide reny with target LDL less than 100,Iron deficiency [...] mouth daily. 180 Tablet 1 11/17/2023 Active Potassium Chloride ER 10 MEQ Oral Tablet Extended ReleaseIndications :Hypokalemia Take 2 Tablets by mouth daily. 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 Authorizing Provider: DEB WEBB Refused Prescriptions: Disp Refills Potassium Chloride ER 10 MEQ Oral Tablet E*270 Ta*3 Sig: TAKE 2 TABLETS IN THE MORNING AND 1 TABLET IN THE EVENING Refused By: FAM HURLEY Reason for Refusal: Other (comment below) Reason for Refusal Comment: dose decreased * Telephone Encounter - Shahla Hurley [facility] - 11/17/2023 6:53 AM EDT Pending Prescriptions: Disp Refills Potassium Chloride ER 10 MEQ Oral Tablet E*180 Ta*1 Sig: Take 2 Tablets by mouth daily. Refused Prescriptions: Disp Refills Potassium Chloride ER 10 MEQ Oral Tablet E*270 Ta*3 Sig: TAKE 2 TABLETS IN THE MORNING AND 1 TABLET IN THE EVENING Refused By: SHAHLA HURLEY Reason for Refusal: Other (comment below) Reason for Refusal Comment: dose decreased * Telephone Encounter - Shahla Hurley [facility] - 11/17/2023 6:52 AM EDT Pending Prescriptions: Disp Refills Potassium Chloride ER 10 MEQ Oral Tablet *180 Ta*1 Sig: Take 2 Tablets by mouth daily. Refused Prescriptions: Disp Refills Potassium Chloride ER 10 MEQ Oral Tablet E*270 Ta*3 Sig: TAKE 2 TABLETS IN THE MORNING AND 1 TABLET IN THE EVENING Refused By: SHAHLA HURLEY Reason for Refusal: Other (comment below) Reason for Refusal Comment: dose decreased Last Visit: 09/01/2023 (in office), Visit date not found (telemedicine) Next Visit: 12/30/2023 If no future appointments scheduled, and last appointment is greater than a year ago, please schedule patient for a follow-up appointment Last date the medication was ordered: 10/10/23 Is this request for a controlled substance?No Urine Drug Screen:No results found for this [...] Description 11/20/2023 2:45 PM EDT [facility] [address] [place], [place] [phone] Best Shelley MD [address] [place] [address] 11/26/2023 11:30 AM EDT Office Visit Cardiology, [facility] [address] [place] [phone] Deb Webb PA-C [address] [place] [address] 11/28/2023 11:28 AM EDT Hospital Encounter OR [facility], [place]PER[place] ROOM [facility] [address] [place] [address] Christophe Henriquez MD [address] [place] [address] 11/28/2023 11:28 AM EDT Anesthesia Event OR C, OPERATING ROOM [facility] [address] [place] [address] Ramiro Skelton CRNP [address] [place], [place] [phone] 11/28/2023 11:28 AM EDT - 11/28/2023 4:12 PM EDT Surgery OR [facility], OPERATING ROOM [facility] [address] [place] [address] Christophe Henriquez MD [address] [place] [address] LAPAROSCOPIC PARAESOPHAGEAL HERNIA REPAIR WO/ MESH 12/12/2023 2:00 PM EDT Office Visit General Surgery, [facility] [address] [facility] [place] [address] Anna Ash MD [address] [place] [address] 01/06/2024 3:00 PM EDT Office Visit Hematology/Oncolog y [facility] [address] [place] [address] Pepito Chiang MD 200 [facility] [place] [address] 02/24/2024 1:40 PM EST Office Visit Rheumatology [address] [place] [address] Niraj Shukla MD [address] [place] [address] [place], [place] [address] 04/22/2024 1:40 PM EST Office Visit General Internal Medicine [facility] [address] [place], [place] [address] Lana Eden MD 200 [facility] [place] [address] 09/02/2024 2:00 PM EDT Office Visit Cardiology, [facility] [address] [place] [phone] Deb Webb PA-C [address] [place] [address] Scheduled Procedures Name Priority Associated Diagnoses Date/Ti [...] D LEVEL ONCE IN A LIFETIME-USE SMARTSET# 79483 Completed 02/10/2023, 11/20/2021, 05/08/2021 Hepatitis B Vaccine [...] hernia without mention of obstruction or gangrene Hypokalemia Hypopotassemia Paraesophageal hiatal hernia Diaphragmatic hernia without mention of obstruction or gangrene documented in this encounter Advance Directives Documents on File Type Date Recorded 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 Question Answer Comments Discussion of Advance Directives occurred with: Patient Care Teams General Technician Relationship Specialty Start Date End Date Lana Eden MD 200 [facility] [place], [place] [address] PCP - General Internal Medicine 12/04/20 documented as of this encounter
--- OUTSIDE RECORDS SUMMARY | 2024-02-20 11:47 | External Medical Summary | Summary of Care ---
Author Name Unknown Organization [facility] Address [address] [place] [address] Phone [phone] Care Team Providers Care Supervisor Assembly Room Name Role Phone Lana Eden MD Primary Care Provider [phone] Reason for Visit * Reason Onset Date Comments Pre-op Clearance 11/13/2023 Encounter Details Date Type Department Care Team (Late st Contact Info) Description 11/13/2023 Telephone Cardiology, [facility] [address] [facility] [place] [address] Billy Anthony PA-C [address] [place] [address] Pre-op Clearance Allergies Active Allergy Reactions Criticality [...] rhinitis, unspecified seasonality, unspecified trigger Administer 1 [place] into nostril in the morning and 1 [place] before bedtime. 90 mL 3 04/03/2023 Active [...] to patient: pt Number to return call: [phone] Reason for call(brief): pre op Pharmacy: na Provider Name:Raj Detailed message to office:pt is calling to ask if he needs to come for a visit for pre op hiatal hernia repair on 11/28/23 at [facility] Last seen 08/2023 Thank you documented in this encounter Plan of Treatment Upcoming Encounters Date Type Department Care Team (Latest Contact Info) Description 11/20/2023 2:45 PM EDT [facility] [address] [place], [place] [phone] Best Shelley MD [address] [place] [address] 11/28/2023 11:28 AM EDT Hospital Encounter OR [facility], OPERATING ROOM [facility], [facility] [address] [place] [address] Christophe Henriquez MD [address] [place] [address] 11/28/2023 11:28 AM EDT Anesthesia Event OR [facility], OPERATING ROOM [facility], [facility] [address] [place] [phone] Ramiro Skelton CRNP [address] [place] [address] 11/28/2023 11:28 AM EDT - 11/28/2023 4:12 PM EDT Surgery OR [facility], OPERATING ROOM [facility], [facility] [address] [place] [address] Christophe Henriquez MD [address] [place] [address] LAPAROSCOPIC PARAESOPHAGEAL HERNIA REPAIR WO/ MESH 12/12/2023 2:00 PM EDT Office Visit General Surgery, [facility] [address] [place] [address] Anna Ash MD [address] [place] [address] 01/06/2024 3:00 PM EDT Office Visit Hematology/Oncolog y [facility] [address] [place] [address] Pepito Chiang MD [address] [place] [address] 02/24/2024 1:40 PM EST Office Visit Rheumatology [facility] [address] [place] [address] Niraj Shukla MD [address] [facility] [place], [place] [address] 04/22/2024 1:40 PM EST Office Visit General Internal Medicine [facility] [address] [place] [address] Lana Eden MD 200 [facility] [place] [address] 09/02/2024 2:00 PM EDT Office Visit Cardiology, [facility] [address] [place] [address] Billy Anthony PA-C [address] [place], [place] [phone] Scheduled Procedures Name Priority Associated Diagnoses Date/Ti ct LAPAROSCOPIC PARAESOPHAGEAL HERNIA REPAIR WO/ MESH Paraesophageal [...] D LEVEL ONCE IN A LIFETIME-USE SMARTSET# 35032 Completed 02/10/2023, 11/20/2021, 05/08/2021 Hepatitis B Vaccine [...] Documents on File Type Date Recorded 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 Question Answer Comments Discussion of Advance Directives occurred with: Patient Care Teams Supervisor Assembly Room Relationship Specialty Start Date End Date Lana Eden MD 200 [facility] [place] [address] PCP - General Internal Medicine 12/04/20 documented as of this encounter
--- OUTSIDE RECORDS SUMMARY | 2024-02-20 11:47 | External Medical Summary | Summary of Care ---
Author Name Unknown Organization [facility] Address [address] [place] [address] Phone [phone] Care Team Providers Care Illustrator Set Name Role Phone Lana Eden MD Primary Care Provider [phone] Reason for Visit * Reason Onset Date Comments Pre-op Clearance 11/13/2023 Encounter Details Date Type Department Care Team (Late st Contact Info) Description 11/13/2023 Telephone Cardiology, [facility] [address] [facility] [place] [address] Billy Anthony PA-C [address] [place] [address] Pre-op Clearance Allergies Active Allergy Reactions Criticality [...] rhinitis, unspecified seasonality, unspecified trigger Administer 1 [place] into nostril in the morning and 1 [place] before bedtime. 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 Thank you Billy. * Telephone Encounter - Billy Anthony PA-C - 11/13/2023 4:19 PM EDT How about the close in return appointment on 11/26/2023 at 11:30 AM? Billy Anthony PA-C Department of Cardiology * Telephone Encounter - Asaf Graham OSA - 11/13/2023 3:17 PM EDT I would like to schedule this appt for him, however, appointments with Billy, and other providers isinto December. He may have to postpone surgery. Please advise, thank you. * Telephone Encounter - Billy Anthony PA-C [...] and provide clearance; this may delay surgery. Thanks, Billy ----- Message ----- From: Cristiane Enriquez PA-C [...] to patient: pt Number to return call: [phone] Reason for call(brief): pre op Pharmacy: na Provider Name:Raj Detailed message to office:pt is calling to ask if he needs to come for a visit for pre op hiatal hernia repair [place]28[place] [facility] Last seen 08/2023 Thank you documented in this encounter Plan of Treatment Upcoming Encounters Date Type Department Care Team (Latest Contact Info) Description 11/20/2023 2:45 PM EDT [facility] General [address], [place] [phone] Best Shelley MD [address] [facility], [place] [address] 11/28/2023 11:28 AM EDT Hospital Encounter [place] [facility], OPER[place] [address] [place] [facility] [address] Christophe Henriquez MD [address] [place], [place] [address] 11/28/2023 11:28 AM EDT Anesthesia Event [place] [facility], OPERATING RO[facility] [address] [place] [facility] [place] [address] Ramiro Skelton CRNP [address] [place], [place] [address] 11/28/2023 11:28 AM EDT - 11/28/2023 4:12 PM EDT Surgery [place] [facility], O[facility] [address] [place] [facility] [place] [address] Christophe Henriquez MD [address] [place], [place] [address] LAPAROSCOPIC PARAESOPHAGEAL HERNIA REPAIR WO/ MESH 12/12/2023 2:00 PM EDT Office Visit General Surgery, [facility] [address] [place] [address] Anna Ash MD [address] [facility] [place] [address] 01/06/2024 3:00 PM EDT Office Visit Hematology/Oncolog y [facility] [place] [address] [place] [address] Pepito Chiang MD [address] [place], [place] [address] 02/24/2024 1:40 PM EST Office Visit Rheumatology [facility] [address] [place] [address] Niraj Shukla MD [address] [facility] [place] [address] 04/22/2024 1:40 PM EST Office Visit General Internal Medicine [facility] [address] [place] [address] Lana Eden MD [address] [place] [address] 09/02/2024 2:00 PM EDT Office Visit Cardiology, [facility] [address] [place] [address] Billy Anthony PA-C [address] [place] [address] Scheduled Procedures Name Priority Associated Diagnoses Date/Ti [...] D LEVEL ONCE IN A LIFETIME-USE SMARTSET# [id number] Completed 02/10/2023, 11/20/2021, 05/08/2021 Hepatitis B Vaccine [...] Documents on File Type Date Recorded Patient Services Clerk Expl 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 Question Answer Comments Discussion of Advance Directives occurred with: Patient Care Teams Illustrator Set Relationship Specialty Start Date End Date Lana Eden MD [address] [place] [address] PCP - General Internal Medicine 12/04/20 documented as of this encounter
--- OUTSIDE RECORDS SUMMARY | 2024-02-20 11:47 | External Medical Summary | Summary of Care ---
Author Name Unknown Organization [facility] Address [address] [place] [address] Phone [phone] Care Team Providers Care First Assistant Manager Name Role Phone Lana Eden MD Primary Care Provider [phone] Reason for Visit * Reason Onset Date Comments Pre-op Clearance 11/13/2023 Encounter Details Date Type Department Care Team (Late st Contact Info) Description 11/13/2023 Telephone Cardiology, [facility] [address] [facility] [place] [address] Billy Anthony PA-C [address] [place] [address] Pre-op Clearance Allergies Active Allergy Reactions Criticality Noted Date Comments Amoxicillin-Pot Clavulanate 02/24/20 19 Codeine High 01/05/2020 Other reaction(s): "I GOT REALLY SICK" Hydrocodone Bit-Homatrop Mbr 017 Levothyroxine Sodium Hives,Rash High 10/01/2010 documented as of this encounter (statuses as of 11/14/2023) Medications Medication Sig Dispensed Refills Start Date [...] rhinitis, unspecified seasonality, unspecified trigger Administer 1 [place] into nostril in the morning and 1 [place] before bedtime. 90 mL 3 04/03/2023 Active [...] as of this encounter (statuses as of 11/14/2023) Active Problems Problem Noted Date Diagnosed Date [...] as of this encounter (statuses as of 11/14/2023) Resolved Problems Problem Noted Date Diagnosed Date [...] as of this encounter (statuses as of 11/14/2023) Immunizations Name Administration Dates Next Due COVID-19 [...] encounter Miscellaneous Notes * Telephone Encounter - Margot Haywood OSA - 11/14/2023 8:04 AM EDT [facility] SENT * Telephone Encounter - Asaf Graham OSA [...] however, appointments with Billy, and other providers isio December. He may have to postpone surgery. [...] and provide clearance; this may delay surgery. ThanksBilly ----- Message ----- From: Cristiane Enriquez PA-C [...] to patient: pt Number to return call: [phone] Reason for call(brief): pre op Pharmacy: na Provider Name:Raj Detailed message to office:pt is calling to ask if he needs to come for a visit for pre op hiatal hernia repair on 11/28/23 at [facility] Last seen 08/2023 Thank you documented in this encounter Plan of Treatment Upcoming Encounters Date Type Department Care Team (Latest Contact Info) Description 11/20/2023 2:45 PM EDT Telemedicine General Surgery, [place] [address] [place], [place] [phone] Best Shelley MD [address] [place], [place] [phone] 11/28/2023 11:28 AM EDT Hospital Encounter OR [facility], OPERATING ROOM [facility], [facility] [address] [place] [phone] Christophe Henriquez MD [address] [place] [address] 11/28/2023 11:28 AM EDT Anesthesia Event OR [facility], OPERATING ROOM [facility], [facility] [address] [place] [phone] Ramiro Skelton CRNP [address] [place], [place] [phone] 11/28/2023 11:28 AM EDT - 11/28/2023 4:12 PM EDT Surgery OR [facility], OPERATING ROOM [facility], [facility] [address] [place] [address] Christophe Henriquez MD [address] [place] [address] LAPAROSCOPIC PARAESOPHAGEAL HERNIA REPAIR WO/ MESH 12/12/2023 2:00 PM EDT Office Visit General Surgery, [facility] [address] [place] [address] Anna Ash MD [address] [place] [address] 01/06/2024 3:00 PM EDT Office Visit Hematology/Oncolog y [facility] [address] [place], [place] [address] Pepito Chiang MD [address] [place], [place] [address] 02/24/2024 1:40 PM EST Office Visit Rheumatology [place] [address] [facility] [place] [address] Niraj Shukla MD [address] [place], [place] [address] 04/22/2024 1:40 PM EST Office Visit General Internal Medicine [facility] [address] [place] [address] Lana Eden MD 200 [facility] [place], [place] [address] 09/02/2024 2:00 PM EDT Office Visit Cardiology, [facility] [address] [place] [address] Billy Anthony PA-C [address] [place] [address] Scheduled Procedures Name Priority Associated Diagnoses Date/Ti ky LAPAROSCOPIC PARAESOPHAGEAL HERNIA REPAIR WO/ MESH Paraesophageal [...] D LEVEL ONCE IN A LIFETIME-USE SMARTSET# [id number] Completed 02/10/2023, 11/20/2021, 05/08/2021 Hepatitis B Vaccine [...] Documents on File Type Date Recorded Patient Station Cook Expl 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 Question Answer Comments Discussion of Advance Directives occurred with: Patient Care Teams First Assistant Manager Relationship Specialty Start Date End Date Lana Eden MD 200 [facility] [place] [address] PCP - General Internal Medicine 12/04/20 documented as of this encounter
--- OUTSIDE RECORDS SUMMARY | 2024-02-20 11:47 | External Medical Summary | Summary of Care ---
Author Name Unknown Organization [facility] Address [address] [place] [address] Phone [phone] Care Team Providers Care Machine Stripper Cutter Name Role Phone Lana Eden MD Primary Care Provider [phone] Reason for Visit * Reason Onset Date Comments Pre-op Clearance 11/13/2023 Encounter Details Date Type Department Care Team (Late st Contact Info) Description 11/13/2023 Telephone Cardiology, [facility] [address] [facility] [place] [address] Billy Anthony PA-C [address] [facility] [place] [address] Pre-op Clearance Allergies Active Allergy Reactions Criticality [...] rhinitis, unspecified seasonality, unspecified trigger Administer 1 [place] into nostril in the morning and 1 [place] before bedtime. 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/30 Steroid-induced [...] encounter Miscellaneous Notes * Telephone Encounter - Akanksha Palma OSA - 11/13/2023 1:32 PM EDT Person calling: pt Relationship to patient: pt Number to return call: [phone] Reason for call(brief): pre op Pharmacy: na Provider Name:Raj Detailed message to office:pt is calling to ask if he needs to come for a visit for pre op hiatal hernia repair on 11/28/23 at [facility] Last seen 08/2023 Thank you documented in this encounter Plan of Treatment Upcoming Encounters Date Type Department Care Team (Latest Contact Info) Description 11/20/2023 2:45 PM EDT [facility] [address] [place] [address] Best Shelley MD [address] [place] [address] 11/28/2023 11:28 AM EDT Hospital Encounter OR [facility], [facility]ATING [facility] [address] [place] [address] Christophe Henriquez MD [address] [place] [address] 11/28/2023 11:28 AM EDT Anesthesia Event OR [facility], OPERATING ROOM [facility], [facility] [address] [place] [address] Ramiro Skelton CRNP [address] [place], [place] [phone] 11/28/2023 11:28 AM EDT - 11/28/2023 4:12 PM EDT Surgery OR [facility], OPERATING ROOM [facility], [facility] [address] [place] [address] Christophe Henriquez MD [address] [place], [place] [phone] LAPAROSCOPIC PARAESOPHAGEAL HERNIA REPAIR WO/ MESH 12/12/2023 2:00 PM EDT Office Visit General Surgery, [facility] [address] [place] [address] Anna Ash MD [address] [place], [place] [address] 01/06/2024 3:00 PM EDT Office Visit Hematology/Oncolog y [facility] [address] [place] [address] Pepito Chiang MD 200 [place] [address] 02/24/2024 1:40 PM EST Office Visit Rheumatology [place] [address] [facility] [place], [place] [address] Niraj Shukla MD [facility] [place] [address] 04/22/2024 1:40 PM EST Office Visit General Internal Medicine [facility] [address] [place], [place] [address] Lana Eden MD [address] [place] [address] 09/02/2024 2:00 PM EDT Office Visit Cardiology, [facility] [address] [place] [address] Billy Anthony PA-C [address] [place] [address] Scheduled Procedures Name Priority Associated Diagnoses Date/Ti [...] D LEVEL ONCE IN A LIFETIME-USE SMARTSET# [id number] Completed 02/10/2023, 11/20/2021, 05/08/2021 Hepatitis B Vaccine [...] Documents on File Type Date Recorded Patient Test Clerk Expl 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 Question Answer Comments Discussion of Advance Directives occurred with: Patient Care Teams Machine Stripper Cutter Relationship Specialty Start Date End Date Lana Eden MD 200 [place] [address] PCP - General Internal Medicine 12/04/20 documented as of this encounter
--- OUTSIDE RECORDS SUMMARY | 2024-02-20 11:47 | External Medical Summary | Summary of Care ---
Author Name Unknown Organization [facility] Address [address] [place] [address] Phone [phone] Care Team Providers Care Hedge Fund Trader Name Role Phone Lana Eden MD Primary Care Provider [phone] Reason for Visit * Reason Onset Date Comments Pre-op Clearance 11/13/2023 Encounter Details Date Type Department Care Team (Late st Contact Info) Description 11/13/2023 Telephone Cardiology, [facility] [address] [facility] [place] [address] Billy Anthony PA-C [address] [place] [address] Pre-op Clearance Allergies Active Allergy Reactions Criticality [...] rhinitis, unspecified seasonality, unspecified trigger Administer 1 [place] into nostril in the morning and 1 [place] before bedtime. 90 mL 3 04/03/2023 Active [...] encounter Miscellaneous Notes * Telephone Encounter - Cami Aguillon LPN - 11/14/2023 3:09 PM EDT Spoke with pt by phone - he will take 11/26/23 11:30am appt with Billy Anthony PA-C at [facility]. Notified RN with surgery pt is rescheduled for cardiac risk assessment prior to 11/27 surgery date. See also Dexmot message to pt from 11/14/23 * Telephone Encounter - Margot Haywood OSA [...] however, appointments with Billy, and other providers maurisio December. He may have to postpone surgery. [...] Cristiane Enriquez PA-C * Telephone Encounter - Gabby Palmane [place] [facility] - 11/13/2023 1:32 PM EDT Person calling: pt Relationship to patient: pt Number to return call: [phone] Reason for call(brief): pre op Pharmacy: na Provider Name:Raj Detailed message to office:pt is calling to ask if he needs to come for a visit for pre op hiatal hernia repair on 11/28/23 at [facility] Last seen 08/2023 Thank you documented in this encounter Plan of Treatment Upcoming Encounters Date Type Department Care Team (Latest Contact Info) Description 11/20/2023 2:45 PM EDT [facility] [address] [place] [address] Best Shelley MD [address] [place] [address] 12/12/2023 2:00 PM EDT Office Visit General Surgery, [facility] [place] [phone] Anna Ash MD [address] [place] [address] 12/30/2023 2:30 PM EDT Office Visit Cardiology, [facility] [place] [address] Billy [facility] [place] [address] 01/06/2024 3:00 PM EDT Office Visit Hematology/[facility]colog y [facility] [address] [place] [phone] Pepito Chiang MD 200 [facility] [place] [address] 01/27/2024 7:15 AM EDT Hospital Encounter OR [facility], OPERATING ROOM [facility], [facility] [address] [facility] [place] [address] Christophe Henriquez MD [address] [place], [place] [address] 01/27/2024 7:15 AM EDT Anesthesia Event OR [facility], OPERATING ROOM [facility], [facility] [address] [facility] [place] [address] Ramiro Skelton CRNP [address] [place], [place] [address] 01/27/2024 7:15 AM EDT - 01/27/2024 11:59 AM EDT Surgery OR [facility], OPERATING ROOM [facility], [facility] [address] [place] [address] Christophe Henriquez MD [address] [place], [place] [address] LAPAROSCOPIC PARAESOPHAGEAL HERNIA REPAIR WO/ MESH 02/24/2024 1:40 PM EST Office Visit Rheumatology [facility] [address] [facility] [place], [place] [address] Niraj Shukla MD [address] [facility] [place] [address] 04/22/2024 1:40 PM EST Office Visit General Internal Medicine [facility] [place] [address] [place] [address] Lana Eden MD [address] [place] [address] 09/02/2024 2:00 PM EDT Office Visit Cardiology, [facility] [address] [place] [address] Billy Anthony PA-C [address] [place] [address] Scheduled Procedures Name Priority Associated Diagnoses Date/Ti me LAPAROSCOPIC PARAESOPHAGEAL HERNIA REPAIR WO/ MESH Paraesophageal hiatal hernia 01/27/2024 7:15 AM EDT LAPAROSCOPIC PARAESOPHAGEAL HERNIA REPAIR W/MESH Paraesophageal hiatal hernia 01/27/2024 7:15 AM EDT ESOPHAGOGASTRODUODENOSCOPY ( EGD), FLEXIBLE, TRANSORAL, DIAGNOSTIC Paraesophageal hiatal hernia 01/27/2024 7:15 AM EDT COLONOSCOPY FLEXIBLE PROXIMA L DIAGNOSTIC [...] D LEVEL ONCE IN A LIFETIME-USE SMARTSET# [id number] Completed 02/10/2023, 11/20/2021, 05/08/2021 Hepatitis B Vaccine [...] Documents on File Type Date Recorded Patient Manufacturing Quality Inspector Expl 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 Question Answer Comments Discussion of Advance Directives occurred with: Patient Care Teams Hedge Fund Trader Relationship Specialty Start Date End Date Lana Eden MD 200 [place] [address] PCP - General Internal Medicine 12/04/20 documented as of this encounter
--- OUTSIDE RECORDS SUMMARY | 2024-02-20 11:47 | External Medical Summary | Summary of Care ---
Author Name Unknown Organization [facility] Address [address] [place] [address] Phone [phone] Care Team Providers Care Air Traffic Control Supervisor Name Role Phone Lana Eden MD Primary Care Provider [phone] Reason for Visit * Reason Onset Date Comments Pre-op Clearance 11/13/2023 Encounter Details Date Type Department Care Team (Late st Contact Info) Description 11/13/2023 Telephone Cardiology, [facility] [address] [facility] [place] [address] Billy Anthony PA-C [address] [facility] [place] [address] Pre-op Clearance Allergies Active Allergy Reactions Criticality [...] rhinitis, unspecified seasonality, unspecified trigger Administer 1 [place] into nostril in the morning and 1 [place] before bedtime. 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 * Telephone Encounter - Cami Aguillon LPN - 11/14/2023 3:09 PM EDT Spoke with pt by phone - he will take 11/26/23 11:30am appt with Billy Anthony PA-C at [facility]. Notified RN with surgery pt is rescheduled for cardiac risk assessment prior to 11/27 surgery date. See also Zixit message to pt from 11/14/23 * Telephone [...] surgery. Billy Parks ----- Message ----- From: Cristiaen Enriquez PA-C Sent: 11/10/2023 7:01 AM EDT [...] to patient: pt Number to return call: [phone] Reason for call(brief): pre op Pharmacy: na Provider Name:Raj Detailed message to office:pt is calling to ask if he needs to come for a visit for pre op hiatal hernia repair on 11/28/23 at [facility] Last seen 08/2023 Thank you documented in this encounter Plan of Treatment Upcoming Encounters Date Type Department Care Team (Latest Contact Info) Description 11/20/2023 2:45 PM EDT [facility] [address] [place], [place] [phone] Best Shelley MD [address] [place] [address] 11/26/2023 11:30 AM EDT Office Visit Cardiology, [facility] [address] [place] [address] Billy Anthony PA-C [address] [place] [address] 11/28/2023 11:28 AM EDT Hospital Encounter OR [facility], [facility] [address] [place] [address] Christophe Henriquez MD [address] [place] [address] 11/28/2023 11:28 AM EDT Anesthesia Event OR [facility], OPERATING ROOM [facility], [facility] [address] [place] [address] Ramiro Skelton CRNP [address] [place] [address] 11/28/2023 11:28 AM EDT - 11/28/2023 4:12 PM EDT Surgery OR [facility], OPERATING ROOM [facility], [facility] [address] [place] [address] Christophe Henriquez MD [address] [place], [place] [phone] LAPAROSCOPIC PARAESOPHAGEAL HERNIA REPAIR WO/ MESH 12/12/2023 2:00 PM EDT Office Visit General Surgery, [facility] [address] [place] [address] Anna Ash MD [address] [place], [place] [address] 01/06/2024 3:00 PM EDT Office Visit Hematology/Oncolog y [facility] [address] [place], [place] [address] Pepito Chiang MD [address] [place] [address] 02/24/2024 1:40 PM EST Office Visit Rheumatology [place] [address] [facility] [place] [address] Niraj Shukla MD [facility] [address] [facility] [place], [place] [address] 04/22/2024 1:40 PM EST Office Visit General Internal Medicine [facility] 200 [facility] [place] [address] Lana Eden MD 200 [facility] [place] [address] 09/02/2024 2:00 PM EDT Office Visit Cardiology, [facility] [address] [place] [address] Billy Anthony PA-C [address] [place] [address] Scheduled Procedures Name Priority Associated Diagnoses Date/Ti [...] D LEVEL ONCE IN A LIFETIME-USE SMARTSET# [id number] Completed 02/10/2023, 11/20/2021, 05/08/2021 Hepatitis B Vaccine [...] Documents on File Type Date Recorded Patient Security Sme Expl 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 Question Answer Comments Discussion of Advance Directives occurred with: Patient Care Teams Air Traffic Control Supervisor Relationship Specialty Start Date End Date Lana Eden MD [address] [place] [address] PCP - General Internal Medicine 12/04/20 documented as of this encounter
--- OUTSIDE RECORDS SUMMARY | 2024-02-20 11:47 | External Medical Summary | Summary of Care ---
Author Name Unknown Organization [facility] Address [address] [place] [address] Phone [phone] Care Team Providers Care Boat Hoist Operator Helper Name Role Phone Lana Eden MD Primary Care Provider Reason for Visit * Reason Onset Date Comments Pre-op Clearance 11/13/2023 Encounter Details Date Type Department Care Team (Late st Contact Info) Description 11/13/2023 Telephone Cardiology, [facility] [address] [facility] [place] [address] Billy Anthony PA-C [address] [facility] [place] [address] Pre-op Clearance Allergies Active Allergy Reactions Criticality [...] unspecified seasonality, unspecified trigger Administer 1 [place] into nostril in the morning and 1 [place] before bedtime. 90 mL 3 04/03/2023 Active [...] to patient: pt Number to return call: [phone] Reason for call(brief): pre op Pharmacy: na Provider Name:Raj Detailed message to office:pt is calling to ask if he needs to come for a visit for pre op hiatal hernia repair on 11/28/23 at [facility] Last seen 08/2023 Thank you documented in this encounter Plan of Treatment Upcoming Encounters Date Type Department Care Team (Latest Contact Info) Description 11/20/2023 2:45 PM EDT [facility] [address] [place], [place] [phone] Best Shelley MD [address] [place], [place] [address] 11/28/2023 11:28 AM EDT Hospital Encounter OR [facility], OPERATING ROOM [facility], [facility]ILION [address] [place] [address] Christophe Henriquez MD [address] [place], [place] [address] 11/28/2023 11:28 AM EDT Anesthesia Event OR [facility], OPERATING ROOM [facility], [facility] [address] [place] [address] Ramiro Skelton CRNP [address] [place] [address] 11/28/2023 11:28 AM EDT - 11/28/2023 4:12 PM EDT Surgery OR [facility], OPERATING ROOM [facility], [facility] [address] [place] [address] Christophe Henriquez MD [address] [place], [place] [phone] LAPAROSCOPIC PARAESOPHAGEAL HERNIA REPAIR WO/ MESH 12/12/2023 2:00 PM EDT Office Visit General Surgery, [facility] [address] [facility] [place] [address] Anna Ash MD [address] [place], [place] [address] 01/06/2024 3:00 PM EDT Office Visit Hematology/Oncolog y [facility] [address] [place] [address] Pepito Chiang MD 200 [facility] [place] [address] 02/24/2024 1:40 PM EST Office Visit Rheumatology [place] [address] [facility] [place] [address] Niraj Shukla MD [address] [place] [address] [place] [address] 04/22/2024 1:40 PM EST Office Visit General Internal Medicine [facility] [address] [place], [place] [address] Lana Eden MD 200 [facility] [place], [place] [address] 09/02/2024 2:00 PM EDT Office Visit Cardiology, [facility] [address] [facility] [place] [address] Billy Anthony PA-C [address] [place] [address] Scheduled Procedures Name Priority Associated Diagnoses Date/Ti [...] D LEVEL ONCE IN A LIFETIME-USE SMARTSET# [id number] Completed 02/10/2023, 11/20/2021, 05/08/2021 Hepatitis B Vaccine [...] Documents on File Type Date Recorded Patient Sampler Ovens Expl 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 Question Answer Comments Discussion of Advance Directives occurred with: Patient Care Teams Boat Hoist Operator Helper Relationship Specialty Start Date End Date Lana Eden MD 200 [facility] [place] [address] PCP - General Internal Medicine 12/04/20 documented as of this encounter
--- OUTSIDE RECORDS SUMMARY | 2024-02-20 11:47 | External Medical Summary | Summary of Care ---
Author Name Unknown Organization [facility] Address [address] [place] [address] Phone [phone] Care Team Providers Care Taper Machine Name Role Phone Lana Eden MD Primary Care Provider [phone] Reason for Referral * Evaluate & Treat - Unlimited Visits (Within 3 days (urgent)) - Authorized Specialty Diagnoses / Procedures Referred By Contact Referred To Contact Cardiovascular Medicine / Cardiology Diagnoses Paraesophageal hernia Billy Anthony PAXimena [address] [place] [address] Referral ID Status Reason Start Date Expiration Date Visits Requested Visits Authorized [id number] Authorized Specialty Services Required 11/13/[phone] Question Answer Referral Priority Within 3 days (urgent) Where should this appointment be scheduled? [facility] To which of the following clinics are you referring your patient? General Cardiology Clinic Comments Clearance for surgery on 11/28/23 for a PEH repair Reason for Visit * Reason Onset Date Comments Appointment 11/13/2023 Encounter Details Date Type Department Care Team (Late st Contact Info) Description 11/13/2023 Telephone General Surgery, [place] [address], [place] [phone] Argenis Cifuentes RN [address] [place], [place] [phone] Appointment Allergies Active Allergy Reactions Criticality Noted Date [...] rhinitis, unspecified seasonality, unspecified trigger Administer 1 [place] into nostril in the morning and 1 [place] before bedtime. 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 Never true 12/28/19 Within the past 12 months, t he [...] encounter Miscellaneous Notes * Telephone Encounter - Argenis Cifuentes RN - 11/13/2023 1:13 PM EDT Call placed to Harpreet to advise that he needs cardiology clearance prior to surgery on 11/28/[address] Henriquez. Harpreet is not happy that he needs this. Argenis Cifuentes, RN documented in this encounter Plan of Treatment Upcoming Encounters Date Type Department Care Team (Latest Contact Info) Description 11/20/2023 2:45 PM EDT Telemedicine General [facility] [address] [place] [address] Best Shelley MD [address] [place] [address] 11/28/2023 11:28 AM EDT Hospital Encounter OR [facility], OPERATING ROOM [facility] [address] [facility] [phone] Christophe Henriquez MD [address] [place] [address] 11/28/2023 11:28 AM EDT Anesthesia Event OR [facility], OPERATING ROOM [facility], [facility] [address] [facility] [phone] Ramiro Skelton CRNP [address], [place] [phone] 11/28/2023 11:28 AM EDT - 11/28/2023 4:12 PM EDT Surgery OR [facility], OPERATING ROOM [facility], [facility] [address] [facility] [place] [phone] Christophe Henriquez MD [address], [place] [phone] LAPAROSCOPIC PARAESOPHAGEAL HERNIA REPAIR WO/ MESH 12/12/2023 2:00 PM EDT Office Visit General Surgery, [facility] [address] [facility] [place] [address] Anna Ash MD [address] [place] [address] 01/06/2024 3:00 PM EDT Office Visit Hematology/Oncolog y [facility] [address] [place] [address] Pepito Chiang MD [address] [place] [address] 02/24/2024 1:40 PM EST Office Visit Rheumatology [place] [address] [facility] [address] Niraj Shukla MD [address] [place] [address] 04/22/2024 1:40 PM EST Office Visit General Internal Medicine [facility] [address] [facility] [place], [place] [address] aLna Eden MD [address] [facility] [place] [address] 09/02/2024 2:00 PM EDT Office Visit Cardiology, [facility] [address] [place] [address] Billy Anthony PA-C [address] [place] [address] Scheduled Procedures Name Priority Associated Diagnoses Date/Ti [...] Type Priority Associated Diagnoses Orde r Schedule CARDIOLOGY REFERRAL OP Referral Within 3 days (urgent) Paraesophageal hernia Ordered: 11/13/2023 Health Maintenance Due Date Last Done Comments [...] D LEVEL ONCE IN A LIFETIME-USE SMARTSET# [id number] Completed 02/10/2023, 11/20/2021, 05/08/2021 Hepatitis B Vaccine [...] hernia without mention of obstruction or gangrene Paraesophageal hernia- Primary Diaphragmatic hernia without mention of obstruction or gangrene Paraesophageal hiatal hernia Diaphragmatic hernia without mention of obstruction or gangrene documented in this encounter Advance Directives Documents on File Type Date Recorded 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 Question Answer Comments Discussion of Advance Directives occurred with: Patient Care Teams Taper Machine Relationship Specialty Start Date End Date Lana Eden MD [address] [place] [address] PCP - General Internal Medicine 12/04/20 documented as of this encounter
--- OUTSIDE RECORDS SUMMARY | 2024-02-20 11:47 | External Medical Summary | Summary of Care ---
Author Name Unknown Organization [facility] Address [address] [place] [address] Phone [phone] Care Team Providers Care Camouflage Specialist Name Role Phone Lana Eden MD Primary Care Provider [phone] Reason for Visit * Reason Onset Date Comments Pre-op Clearance 11/13/2023 Encounter Details Date Type Department Care Team (Late st Contact Info) Description 11/13/2023 Telephone Cardiology, [facility] [address] [facility] [place] [address] Billy Anthony PA-C [address] [facility] [place] [address] Pre-op Clearance Allergies Active Allergy Reactions Criticality [...] rhinitis, unspecified seasonality, unspecified trigger Administer 1 [place] into nostril in the morning and 1 [place] before bedtime. 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 He may have to postpone surgery. [...] to patient: pt Number to return call: [phone] Reason for call(brief): pre op Pharmacy: na Provider Name:Raj Detailed message to office:pt is calling to ask if he needs to come for a visit for pre op hiatal [place]nia [place] [facility] [place] [facility] [place] Last seen 08/2023 Thank you documented in this encounter Plan of Treatment Upcoming Encounters Date Type Department Care Team (Latest Contact Info) Description 11/20/2023 2:45 PM EDT Telemedicine General Surgery, [place] [address] [place], [place] [phone] Best Shelley MD [address] [facility] [place] [phone] 11/28/2023 11:28 AM EDT Hospital Encounter [place] [facility] [place] [facility] [place] [facility] [place] [facility] [place] [address] [place] [facility] [place] [phone] Christophe Henriquez MD [address] [place] [address] 11/28/2023 11:28 AM EDT Anesthesia Event [place] [facility] [place] [facility] [place] [facility] [place] [facility] [place] [place] [address] [place] [address] Ramiro Skelton CRNP [address] [place] [address] 11/28/2023 11:28 AM EDT - 11/28/2023 4:12 PM EDT Surgery [place] [facility] [place] [facility] [place] [facility] [place] [facility] [place] [address] [place] [phone] Christophe Henriquez MD [address] [place], [place] [phone] LAPAROSCOPIC PARAESOPHAGEAL HERNIA REPAIR WO/ MESH 12/12/2023 2:00 PM EDT Office Visit General Surgery, [facility] [address] [place] [address] Anna Ash MD [address] [place], [place] [phone] 01/06/2024 3:00 PM EDT Office Visit Hematology/Oncolog y [facility] [address] [place] [address] Pepito Chiang MD [address] [place] [address] 02/24/2024 1:40 PM EST Office Visit Rheumatology [place] [phone] [place] [address] Niraj Shukla MD [facility] [employer] [facility] [place] [address] 04/22/2024 1:40 PM EST Office Visit General Internal Medicine [facility] [address] [facility] [place] [address] Lana Eden MD [address] [facility] [place] [address] 09/02/2024 2:00 PM EDT Office Visit Cardiology, [facility] [address] [place] [address] Billy Anthony PA-C [address] [place] [address] Scheduled Procedures Name Priority Associated Diagnoses Date/Ti [...] D LEVEL ONCE IN A LIFETIME-USE SMARTSET# [id number] Completed 02/10/2023, 11/20/2021, 05/08/2021 Hepatitis B Vaccine [...] Documents on File Type Date Recorded 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 Question Answer Comments Discussion of Advance Directives occurred with: Patient Care Teams Camouflage Specialist Relationship Specialty Start Date End Date Lana Eden MD [address] [place] [address] [place], [place] [address] PCP - General Internal Medicine 12/04/20 documented as of this encounter
--- OUTSIDE RECORDS SUMMARY | 2024-02-20 11:48 | External Medical Summary | Summary of Care ---
Author Name Unknown Organization [facility] Address [address] [place] [address] Phone [phone] Care Team Providers Care Space Studies Faculty Member Name Role Phone Lana Eden MD Primary Care Provider [phone] Reason for Visit * Reason Comments H&P Surgery Encounter Details Date Type Department Care Team (Latest Contact Info) Description 11/07/2023 1:30 PM EDT Office Visit General Surgery, [place] [address], [place] [phone] Cristiane Enriquez PA-C [address] [place] [address] Paraesophageal hiatal hernia*; Hyperlipidemia with target LDL less than 100; Iron deficiency anemia due to chronic blood loss; Multiple subsegmental pulmonary emboli without acute cor pulmonale (HCC); SVT (supraventricular tachycardia) (HCC); Type 2 diabetes mellitus with hemoglobin A1c goal of less than 7.0% (HCC); Adenocarcinoma of descending colon (HCC); Malignant neoplasm of splenic flexure (HCC); Pre-operative examination Allergies Active Allergy Reactions Criticality Noted Date Comments Amoxicillin-Pot Clavulanate 02/24/20 19 Codeine High 01/05/2020 Other reaction(s): "I GOT REALLY SICK" Hydrocodone Bit-Homatrop Mbr 017 Levothyroxine Sodium Hives,Rash High 10/01/2010 documented as of this encounter (statuses as of 11/10/2023) Medications Medication Sig Dispensed Refills Start Date [...] rhinitis, unspecified seasonality, unspecified trigger Administer 1 [place] into nostril in the morning and 1 [place] before bedtime. 90 mL 3 04/03/2023 Active [...] Nausea (After surgery). 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 Dyslipidemia, goal to be determined 07/09/2006 09/16/2009 Vertigo 11/25/2017 Impacted cerumen 06/22/2008 documented as of this encounter (statuses as of 11/10/2023) Immunizations Name Administration Dates Next Due COVID-19 [...] Sign Reading Time Taken Comments Blood Pressure 135/69 11/07/2023 1:13 PM EDT Pulse 85 11/07/2023 1:13 PM EDT Temperature 36.3 C (97.4 F) 11/07/2023 1:13 PM ED T Respiratory Rate - - Oxygen Saturation 98% 11/07/2023 1:13 PM EDT Inhaled Oxygen Concentration - - Weight 93.7 kg (206 lb 8 oz) 11/07/2023 1:13 PM EDT Height 165.1 cm (5' 5") 11/07/2023 1:13 PM EDT Body Mass Index 34.36 11/07/2023 1:13 PM EDT documented in this [...] No 08/05/2023 documented as of this encounter Patient Instructions * Patient Instructions* Cristiane Enriquez PA-C - 11/07/2023 1:25 PM EDT 11/07/2023 PRE OP Paraesophageal hernia repair 1) ACTIVITY AND RETURN TO WORK OR SCHOOL Will be individualized. Cannot do strenuous activity or heavy lifting for SIX WEEKS postop Avoid tight fitting clothing; Sleep with the head of your bed elevated 2) DIET: Avoid caffeine, nictotine, alcohol, carbonated beverages, chocolates and mints DO NOT EAT WITHIN 2 HOURS OF BEDTIME; Eat 4-5 small meals daily EAT SLOWLY! Chew and cut your foodsto applesauce consistency HOLD ELIQUIS prior to surgery PRIOR TO DAY OF SURGERY; ONLY CLEAR LIQUIDS FOR 3 DAYS BEFORE SURGERY POST OP DIET: It will take 6 weeks until your are eating normally. You will have difficulty swallowing in the intial post operative period 4-5 small meals daily EAT SLOWLY! Chew and cut your foods to applesauce consistency Week #1 Clear liquids for 3 days and full liquids for 3 days Week #2 Soft foods. AVOID meats and breads. AVOID extremely hot or cold foods/drinks Week #3-6 Slowly advance to regular diet. After week #4, may begin to try beef and pork chops, breads and firm fresh fruits and vegetables only if doing well with swallowing 3) FOLLOW UP VISIT Your first hospital visit post op will be between 7 and 13 days after discharge unless otherwise instructed. You will receive this appointment with your discharge instructions and in a mailing from [employer]. 5) MEDICATIONS Use Gasex gelcaps up to 4 X daily for gas and bloating which is expected after surgery Medications should be in crushed or liquid form until tolerating soft diet. May take medications with applesauce. Most patients will be able to stop their antacids when being discharged from the hospital. You willreceive these instructions upon your discharge from the hospital. 6) Please call the surgical team if you experience any of the following ... - Increase redness or drainage from wound - Increase in abdominal pain, nausea or vomiting - Fever and/or chills (Temp greater than 101F) - Diarrhea for more then 72 hours QUESTIONS OR CONCERNS POST SURGERY Between 8AM and 4:30PM Mon - Fri contact: Ja BONNERN RN, Bariatric Nurse Coordinator Enma Ashford RN, Bariatric Nurse Coordinator Argenis Cifuentes MSN RN, Bariatric Nurse Coordinator 24 HOUR CONTACT # : (Welcu slug press operator) You can contact any physician member of the surgical team through the [employer] slug press operator 24 hours a day Your surgeon Minimally Invasive Surgical Fellow helper steel fabrication dental resident helper steel fabrication Bariatric Medicine helper steel fabrication documented in this encounter Progress Notes * Cristiane Enriquez PA-C - 11/07/2023 1:30 PM EDT Images from the original note were not included. [facility] CLINIC VISIT Date: 11/07/2023 Last Clinic Visit 10/09/2023 Harpreet Sadie Jm [id number] 83 year old PCP: Lana Eden MD Consult requested by: Chet Bhagat DO CC: Harpreet Oneal comes to see me in [facility] ("[facility]") [...] by the physician, the nurse and the heel molder. The procedure was verified in the procedure [...] saturations were monitored continuously. The [id number]-[id number] Endoscope ([id number]) was introduced through the mouth, and advanced [...] 0.1 % Nasal Solution (Astelin) Administer 1 [place] into nostril in the morning and 1 [place] before bedtime. 90 mL 3 Furosemide 20 [...] up COLONOSCOPY, DIAGNOSTIC (RECTUM) 09/03/2017 adenomatous polyp, diverticulosis/[facility] COLONOSCOPY, DIAGNOSTIC (RECTUM) 07/17/2023 COLONOSCOPY FLEXIBLE PROXIMAL DIAGNOSTIC performed by Chet Bhagat DO at ENDOSCOPY [facility] EGD, FLEXIBLE, DIAGNOSTIC 02/10/2019 acid reflux, hiatal hernia, repeat 2 mo / [facility] EGD, FLEXIBLE, DIAGNOSTIC 05/11/2019 acid reflux, hiatal hernia / [facility] EGD, FLEXIBLE, DIAGNOSTIC 07/17/2023 ESOPHAGOGASTRODUODENOSCOPY (EGD), FLEXIBLE, TRANSORAL, DIAGNOSTIC performed by Chet Bhagat DOat ENDOSCOPY [facility] LAPAROSCOPIC COLECTOMY PARTIAL WITH ANASTOMOSIS N/A 08/05/2023 LAPAROSCOPIC PARTIAL COLECTOMY WITH ANASTOMOSIS performed by Best Shelley MD at [place] [facility]ISCELLANEOUS ORDER ([facility] ONLY) 10/08/2019 skin lesion removed left forehead [...] Gabapentin as indicated 5) Hold anticoagulants: Other Apixiban . 6) PreOp EKG? Yes age >45, ordered [...] Cristiane Enriquez PA-C Bariatric and Foregut Surgery [facility] 11/07/2023 documented in this encounter Plan of Treatment Upcoming Encounters Date Type Department Care Team (Latest Contact Info) Description 11/20/2023 2:45 PM EDT [facility] [address], [place] [phone] Best Shelley MD [address] [place], [place] [phone] 11/28/2023 11:28 AM EDT Hospital Encounter [place] [facility] [facility] [address] [place] [phone] Christophe Henriquez MD [address] [place] [address] 11/28/2023 11:28 AM EDT Anesthesia Event [place] [facility] [facility] [place] [address] [place] [phone] Ramiro Skelton CRNP [address], [place] [phone] 11/28/2023 11:28 AM EDT - 11/28/2023 4:12 PM EDT Surgery [place] [facility] [place]OM [facility] [address] [place] [phone] Christophe Henriquez MD [address] [place] [address] LAPAROSCOPIC PARAESOPHAGEAL HERNIA REPAIR WO/ MESH 12/12/2023 2:00 PM EDT Office Visit General Surgery, [facility] [address] [place] [address] Anna Ash MD [address] [place] [address] 01/06/2024 3:00 PM EDT Office Visit Hematology/Oncolog y [facility] [address] [place] [phone] Pepito Chiang MD 200 [facility] [place] [address] 02/24/2024 1:40 PM EST Office Visit Rheumatology [place] [phone] [facility] [place] [address] Niraj Shukla MD [facility] [facility] [place] [address] 04/22/2024 1:40 PM EST Office Visit General Internal Medicine [facility] [address] [facility] [place] [address] Lana Eden MD 200 [facility] [place] [address] 09/02/2024 2:00 PM EDT Office Visit Cardiology, [facility] [address] [place] [address] Billy Anhtony PA-C [address] [place] [address] Scheduled Procedures Name Priority Associated Diagnoses Date/Ti [...] D LEVEL ONCE IN A LIFETIME-USE SMARTSET# [id number] Completed 02/10/2023, 11/20/2021, 05/08/2021 Hepatitis B Vaccine Completed 10/20/2023, 07/18/2023, 04/24/2023 HPV (Gardasil) Vaccine Aged Out No lo nger eligible based on patient's age to complete this topic MENINGOCOCCAL (MENACTRA/MENVEO) Aged Out No longer eligible based on patient's age to complete this topic documented as of this encounter Medical Devices Not on filedocumented as of this encounter Results * EKG (11/07/2023 2:50 PM EDT) 11/07/2023 2:50 PM EDT Narrative Procedure Note Reggie Aguilar MD - 11/07/2023 2:50 PM EDT REASON FOR STUDY: PREOP CONCLUSIONS: Sinus rhythm with Premature atrial complexes Nonspecific ST abnormality When compared with ECG of 05-Aug-2023 11:25, Nonspecific T wave abnormality has replaced inverted T waves in Anteriorleads Premature ventricular complexes no longer present Ventricular Rate: 90 Atrial Rate: 80 [place] Interval: 160 QRS Duration: 74 QT/QTc: 364/445 ms P-R-T [place]: 38 : 25 : -14 degrees Cristiane Enriquez PA-C EKG [facility] documented in this encounter Visit Diagnoses Diagnosis Paraesophageal hiatal hernia- Primary Diaphragmatic hernia without mention of obstruction or gangrene Paraesophageal hiatal hernia- Primary Diaphragmatic hernia without mention of obstruction or gangrene Hyperlipidemia with target LDL less than 100 Other and unspecified hyperlipidemia Iron deficiency anemia due to chronic blood loss Iron deficiency anemia secondary to blood loss (chronic) Multiple subsegmental pulmonary emboli without acute cor pulmonale (HCC) SVT (supraventricular tachycardia) (HCC) Other specified cardiac dysrhythmias Type 2 diabetes mellitus with hemoglobin A1c goal of less than 7.0% (HCC) 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 Pre-operative examination Preoperative examination, unspecified Pre-operative examination- Primary Preoperative examination, unspecified Paraesophageal hiatal hernia Diaphragmatic hernia without mention of obstruction or gangrene SVT (supraventricular tachycardia) (HCC) Other specified cardiac dysrhythmias Paraesophageal hiatal hernia Diaphragmatic hernia without mention of obstruction or gangrene documented in this encounter Advance Directives Documents on File Type Date Recorded 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 Question Answer Comments Discussion of Advance Directives occurred with: Patient Care Teams Space Studies Faculty Member Relationship Specialty Start Date End Date Lana Eden MD [address] [facility] [place] [address] PCP - General Internal Medicine 12/04/20 documented as of this encounter
--- OUTSIDE RECORDS SUMMARY | 2024-02-20 11:48 | External Medical Summary | Summary of Care ---
Author Name Unknown Organization [facility] Address [address] [place] [address] Phone [phone] Care Team Providers Care Line Tender Name Role Phone Lana Eden MD Primary Care Provider [phone] Reason for Visit * Reason Onset Date Comments Pre-Op Testing 11/07/2023 Encounter Details Date Type Department Care Team (Latest Contact Info) Description 11/07/2023 2:15 PM EDT Pre-Admission Testing Pre Surgery [facility] [address], [place] [id number] [facility] [address], [place] [id number] Pre-operative examination*; Paraesophageal hiatal hernia; SVT (supraventricular tachycardia) (FORMERLY [facility]) Allergies Active Allergy Reactions Criticality Noted Date Comments Amoxicillin-Pot Clavulanate 02/24/20 19 Codeine High 01/05/2020 Other reaction(s): "I GOT REALLY SICK" Hydrocodone Bit-Homatrop Mbr 017 Levothyroxine Sodium Hives,Rash High 10/01/2010 documented as of this encounter (statuses as of 11/07/2023) Medications Medication Sig Dispensed Refills Start Date [...] rhinitis, unspecified seasonality, unspecified trigger Administer 1 Novelty into nostril in the morning and 1 Novelty before bedtime. 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 Meds * Agents No agents on file. * Blood No blood administrations on file. Lines, Drains, and Airways Type Details Placement Removal Alteration in Skin Integrity Placement Date: 08/05/23; Time: 1338; Wound Type: Incision (trocar sites); Orientation/Laterality: Medial, Upper; Location: Abdomen 08/05/23 1339 by Ana Stubbs RN documented in this encounter Social History Tobacco Use Types [...] this encounter Patient Instructions * Patient Instructions* Ramiro kSelton CRNP - 11/07/2023 2:16 PM EDT [facility]: Contact # [phone] Directions to Surgical Suite in from the [facility] Entrance The Surgical Waiting Room can be found in the Lobby [facility]. [facility] and the Waiting Room is directly in front of you. Proceed to check in and give them your name. Directions to Surgical Suite from the East Entrance Enter the East entrance and follow the hallway to the J elevator. Take the J elevator up to Level 1. Continue down the long [facility] The Surgical Waiting Room will be on your Right. Proceed to check in and give them your Name. Directions to Surgical Suite from the Parking Garage Enter the [facility] lobby and proceed down the jenkins to the left. At the end of the jenkins, turn right. Continue down the long hallway to the main [facility] [place]. The Surgical Waiting Room will be on your Right. Proceed to check in and give them your Name. THANK YOU FOR CHOOSING [facility]! PRE-OP PATIENT INFORMATION AND EDUCATION: MEDICATION INSTRUCTIONS: The day of surgery/procedure, you may TAKE the following medications with a sip of water up to 2 hours prior to your arrival time: -Lipitor -Azelastine (if needed) -Cardizem -Metoprolol/Toprol -Deltasone AVOID / DO NOT TAKE the following medications the morning of surgery/procedure: -Irbesartan -Lasix -Potassium -Iron -NAC AVOID / DO NOT TAKE the following medications the evening prior to and morning of surgery/procedure: -Metformin STOP taking the following medications the noted number of days prior to surgery/procedure unless otherwise specified by your surgeon: -STOP taking your Eliquis per your surgeon's instructions. -STOP taking your Calcium-Vitamin D, Coenzyme Q10, Magnesium, Vitamin B12, Vitamin D3, Vitamin K2, Zinc, 10 days prior to surgery. Please follow surgeon's instructions regarding use of Aspirin, Coumadin, Plavix, Eliquis, and any other blood thinner including NSAIDs (non-steroidal anti- inflammatory drugs, eg, Advil, Ibuprofen, Motrin, Aleve, Naproxen); if you have any questions regarding your anticoagulation therapy please contact your surgeon's clinic. Please verify any proposed stoppage of your anticoagulation therapy with the agent's prescribing provider. 10 days prior to surgery/procedure Stop all Herbal supplements, Green Tea, Turmeric, Melatonin, CBD, THC, etc. Stop all Vitamins (including Vitamin E) 24 hours prior to surgery/procedure DO NOT consume any alcohol. DO NOT use medical marijuana. DO NOT smoke or use tobacco products of any kind after midnight prior to surgery. *Using any of these products may increase your risks of procedural complications. IF IT IS LESS THAN RECOMMENDED STOPPAGE TIME PLEASE STOP AT TIME OF NOTIFICATION. FASTING RECOMMENDATIONS: To reduce risk, it is important for all elective surgery patients to follow the specific fasting guidelines listed below. If you have received more stringent guidelines, please follow the MOST RESTRICTIVE guidelines that you have been provided. DO NOT EAT after midnight on the night prior to your surgery date. You are allowed to drink clear liquids up to two hours prior to arrival time to the hospital or surgery center. Examples of clear liquids include water, clear fruit juice without pulp, clear carbonated beverages, clear tea, and black coffee. Any drinks given by your surgical service take as directed. THE DAY BEFORE YOUR SURGERY: -Drink plenty of fluid the day before your surgery. Contact your surgeon's office if you develop any of the following within 2 weeks of surgery: A cold Infection Fever Shingles Chicken pox or exposure to chicken pox Open areas such as scrapes, cuts, toure or other skin conditions Rashes GENERAL INSTRUCTIONS FOR PREPARING FOR SURGERY: BATHING INSTRUCTIONS: Bathe the evening prior to and the morning of surgery/procedure. Cleanse your body using ONLY anti-bacterial soap (eg, Dial, Safeguard) or any specific soap/cleansers and instructions provided by your surgeon (eg, Chlorhexidine). -You should brush your teeth the morning of surgery. Do NOT apply any lotions, powders, sprays, creams, oils, make-up, or deodorants after bathing. No hairspray, or nail malagasy on fingers or toes. Day of surgery/procedure do not use tampons. If you wear contacts wear your eyeglasses if available otherwise bring your contact supplies with you to remove them prior to your surgery/procedure. If you wear glasses or dentures, please bring cases in which you can store them during your surgery. Please remove all piercings and jewelry and leave them at home. Wear comfortable and loose clothing. -Please leave all valuables at home. -If you use a CPAP and are staying overnight, please bring your mask. -If you use an assistive mobility device (walker, cane, etc), please label it with your name and bring to hospital. -An escort mixer driver is required if you are being discharged the same day of the surgery. You should have a responsible adult over the age of 18 [address] you home. This person should be present with youin the hospital at the time of discharge and for the first 24 hours after the surgery to support your needs. If you are taking a taxi home, you must have your responsible republican accompany you in the taxi ride home at the time of discharge. OR times subject to change. Please check voicemail messages the day/evening before your surgery forany updates. PRE-OP: You will be taken to the pre-op area where your vital signs (blood pressure, pulse and temperature)will be taken. Any preparations that need to be done will be done there. When it is time for your surgery, you will be taken to the operating room. PARENTS OF PEDIATRIC PATIENTS WILL BE ALLOWED TO STAY WITH THEIR CHILDREN UNTIL THEY ARE ESCORTED TO THE OPERATING ROOM OUTPATIENT SURGERY PATIENTS: After your surgery you will be taken to the Same Day Surgery Unit when you are awake and will go home from there. You will get instructions about your home care before you leave. Arrange to have someone drive you home from the hospital. You may not drive for 24 hours after anesthesia. You must havean adult stay with you at home for 24 hours after your operation. This is very important. If you are not able to comply with these guidelines, your Short Stay surgery cannot be done. ADMISSION PATIENTS: After your stay in the recovery area, you will be taken to your room. Your family may visit you in your room based on current visitation policy. If a next day discharge is expected, it is important to make arrangements for a mixer driver to take you home. Please be aware our visitation policies are subject to change Professionals, attendants, caregivers or family members are allowable visitors for patients with intellectual, developmental or cognitive disabilities, communication barriers or behavioral concerns. Because patients' and families' needs vary, they will be taken into account when applying visitation restrictions. ANESTHESIA INFORMATION This information has been prepared to help you and your family better understand the process of anesthesia, so that you may help make well-informed decisions about your care. This information is alsoprovided to guide your completion of the [facility] anesthesia consent form which addresses real, but infrequent, problems associated with anesthesia. IMPORTANT INFORMATION TO PREVENT YOUR SURGERY FROM BEING CANCELLED/ RESCHEDULED: --You are required to have a mixer driver to take you home whether you are admitted to the hospital following your surgery or not --You are required to have a responsible adult with you for the first 24 hours after surgery to support your needs Types of Anesthesia: Local Anesthesia Local anesthetic drugs (numbing drugs) are usually injected into the tissues to numb just the specific location of your body requiring minor surgery, such as an area of your hand or foot. Regional Anesthesia -Regional anesthesia involves the use of local anesthetics (numbing drugs) to numb larger areas of your body by blocking nerves to those areas. This is commonly referred to as a nerve block. Another way of performing regional anesthesia is by blocking nerves of the spinal cord by injecting numbing m edicines with great exactness around those nerves. This is called spinal or epidural anesthesia depending on exactly where the medication is injected. The type of regional anesthesia selected dependson the type of surgery and whether regional anesthesia is being done to help with pain after surgery or as a part of the anesthesia for surgery. You may remain awake, be sedated, or be given a general anesthetic depending on the type of surgery and the type of regional anesthesia performed Monitored Anesthesia Care (MAC) -Describes a range of sedation that can be given to a patient undergoing a procedure. The level of sedation usually depends on what is needed for the procedure being performed. A patient could be awake and aware of the procedure being performed but be relaxed and able to follow instructions as needed or may be unaware of what is happening and only rouse to significant stimulation. A patient may be able to speak, hear things around them, and answer questions and follow commands but is not in pain or anxious. A patient may experience varying depths of sedation during the procedure. The use of general anesthesia could result if this type of anesthesia is ineffective. General Anesthesia - Occurs by using a combination of medications to put a patient into a deep, sleep-like, unresponsive state for surgery. This is required for many surgical procedures. Under general anesthesia, a patient does not feel pain and is unaware of what is happening during the procedure. Systems in the body may not function normally while a patient is under general anesthesia. They are monitored by the anesthesia provider and may need to be assisted while a patient is under general anesthesia. For example, a breathing device may need to be placed in the airway to assist breathing and medications may need to be given to ensure that your blood pressure and heart rate remain normal. Risks of Anesthesia: Regional/Local/Nerve Blocks -Include but are not limited to, , cardiac or respiratory arrest, permanent complete paralysis, permanent nerve injury, seizure, spinal headache, backache, pain in buttocks and legs, infection, bleeding, leakage of spinal fluid, inadequate pain relief, bowel or bladder dysfunction, prolonged numbness or pain, temporary drop in blood pressure, or allergic reaction to the medications. Monitored Anesthesia Care (MAC) -Common risks include temporary dizziness, light-headedness, nausea and/or vomiting, and leakage ofintravenous fluid into the tissues with swelling or discoloration of the area or residual pain. Less common risks include, but are not limited to, , heart attack, permanent brain damage, stroke,pneumonia, blood clots, awareness, nerve stretch injury of your arm, neck or leg, permanent liver damage and allergic reaction to the medications. General Anesthesia -More common risks include temporary sore throat, pain in the neck or other muscles, dizziness, light-headedness, nausea and/or vomiting, and leakage of intravenous fluid into the tissues with swelling or discoloration of the area or residual pain. Less common risks include, but are not limited to,, heart attack, permanent brain damage, stroke, pneumonia, blood clots, irritation of the cornea of your eye, vision loss, loosened or broken teeth, or other oral injuries, awareness, nerve stretch injury of the arm, neck or leg, hoarseness, laryngospasm, permanent liver damage and allergic reaction to the medications. History of anesthesia complications: If you or a family member have had a complication related to anesthesia such as difficulty with placement of a breathing tube or a serious reaction to a medication administered for anesthesia, pleasetell your anesthesia provider. Having this information will help keep you safe while under anesthesia Nausea: A common side effect of anesthesia is nausea, but some patients do experience both nausea and vomiting. If you have experienced nausea or vomiting after anesthesia in the past, be sure to tell your anesthesia provider so medication can be given to help prevent it from happening again. Patient safety/consenting process: All surgical procedures and anesthetics have some small risks. They are dependent upon many factorsincluding the type of surgery and your medical condition. That is why it is important to know aboutany underlying medical problems, how they are treated and how they can be managed to reduce the risks of anesthesia and surgery. Thus, it is important for your anesthesia provider to ask detailed questions about your medical history, and to know what prescription medications you are taking, including dosages and schedules, as well as any over the counter or herbal medicines and supplements. You must notify the doctor of any of the following: -if you are or possibly -if you have any sensitivity to medications -present mental and physical condition -if recently consumed alcohol or non-clear liquids -if you are presently on psychiatric mood-altering drugs or other medications If you are a female of child-bearing age and you use any form of hormone-based contraception, please continue to use it and, in addition, use an alternative form of contraception, such as condoms andspermicide for a month after discharge from the hospital. This is because during the hospitalization you might receive one or more medications that may render hormone-based contraceptives ineffective for several days or weeks. The affected contraceptives include, but are not limited to, the usual contraceptive pills, most types of intrauterine devices, Depo-Provera shots, hormonal patches, and hormonal vaginal rings. If you are not sure, contact your primary care physician, your senior software architect, or your surgeon to check if this warning applies to you. You may need to have invasive monitoring, which includes the insertion of catheters into your veinsand arteries. This is done to measure pressures, to take blood samples, and may be used in emergentsituations for intravenous access. This monitoring has risks including, but not limited to, injury to your arteries, lung collapse, bleeding, nerve injury as well as the risks related to anesthesia. An esophageal probe may be used to monitor your heart, this monitor has risks which include sore throat, hoarseness, difficulty with swallowing, loosened or broken teeth and esophageal injury. Major complications are rare but could include , respiratory distress, an abnormal heartbeat, infection, and bleeding. As part of the consent to administer anesthesia authorization you will discuss the following with the anesthesia doctor and his/her associates: -your present condition and diagnosis as it pertains to anesthesia or sedation administration -a description of the proposed anesthetic/sedation technique or procedure to be used -significant risks and benefits of the proposed anesthetic/sedation technique or procedure -any applicable alternatives, including their risks and benefits -if applicable, use of back-up method of contraception for 30 days after discharge -if applicable, the option of having no treatment and the potential results of this -if your procedure is in an outpatient surgery setting-the risk associated with having this procedure in this type of setting should be discussed as well as the potential need for transfer to the hospital if necessary Please be sure to have all questions that you have answered prior to signing the consent to administer anesthesia. You can make your care safer by being an active, informed patient. It is important that you are involved in your health care. Being a good patient does not mean being a silent one. If you have questions, problems, safety concerns or unmet needs, please let us know if you would like further clarification of the "Patient Rights and Responsibilities" as they pertain to you, or would like more information regarding our complaint and for grievance process, please call the site where you receive care and request to speak withthe patient advocate line. documented in this encounter Nursing Notes * Ramiro Skelton CRNP - 11/07/2023 2:16 PM EDT [facility]: Contact # [phone] Directions to Surgical Suite in from the Flex Entrance The Surgical Waiting Room can be found in the Lobby of [facility]. Enter through Main Lobby Entrance and the Waiting Room is directly in front of you. Proceed to check in and give them your name. Directions to Surgical Suite from the East Entrance Enter the East entrance and follow the hallway to the J elevator. Take the J elevator up to Level 1. Continue down the long hallway to the main [facility] Lobby. The Surgical Waiting Room will be on your Right. Proceed to check in and give them your Name. Directions to Surgical Suite from the Parking Garage Enter the [facility] lobby and proceed down the jenkins to the left. At the end of the jenkins, turn right. Continue down the long hallway to the main [facility] Lobby. The Surgical Waiting Room will be on your Right. Proceed to check in and give them your Name. THANK YOU FOR CHOOSING [facility] PRE-OP PATIENT INFORMATION AND EDUCATION: MEDICATION INSTRUCTIONS: The day of surgery/procedure, you may TAKE the following medications with a sip of water up to 2 hours prior to your arrival time: -Lipitor -Azelastine (if needed) -Cardizem -Metoprolol/Toprol -Deltasone AVOID / DO NOT TAKE the following medications the morning of surgery/procedure: -Irbesartan -Lasix -Potassium -Iron -NAC AVOID / DO NOT TAKE the following medications the evening prior to and morning of surgery/procedure: -Metformin STOP taking the following medications the noted number of days prior to surgery/procedure unless otherwise specified by your surgeon: -STOP taking your Eliquis per your surgeon's instructions. -STOP taking your Calcium-Vitamin D, Coenzyme Q10, Magnesium, Vitamin B12, Vitamin D3, Vitamin K2, Zinc, 10 days prior to surgery. Please follow surgeon's instructions regarding use of Aspirin, Coumadin, Plavix, Eliquis, and any other blood thinner including NSAIDs (non-steroidal anti- inflammatory drugs, eg, Advil, Ibuprofen, Motrin, Aleve, Naproxen); if you have any questions regarding your anticoagulation therapy please contact your surgeon's clinic. Please verify any proposed stoppage of your anticoagulation therapy with the agent's prescribing provider. 10 days prior to surgery/procedure Stop all Herbal supplements, Green Tea, Turmeric, Melatonin, CBD, THC, etc. Stop all Vitamins (including Vitamin E) 24 hours prior to surgery/procedure DO NOT consume any alcohol. DO NOT use medical marijuana. DO NOT smoke or use tobacco products of any kind after midnight prior to surgery. *Using any of these products may increase your risks of procedural complications. IF IT IS LESS THAN RECOMMENDED STOPPAGE TIME PLEASE STOP AT TIME OF NOTIFICATION. FASTING RECOMMENDATIONS: To reduce risk, it is important for all elective surgery patients to follow the specific fasting guidelines listed below. If you have received more stringent guidelines, please follow the MOST RESTRICTIVE guidelines that you have been provided. DO NOT EAT after midnight on the night prior to your surgery date. You are allowed to drink clear liquids up to two hours prior to arrival time to the hospital or surgery center. Examples of clear liquids include water, clear fruit juice without pulp, clear carbonated beverages, clear tea, and black coffee. Any drinks given by your surgical service take as directed. THE DAY BEFORE YOUR SURGERY: -Drink plenty of fluid the day before your surgery. Contact your surgeon's office if you develop any of the following within 2 weeks of surgery: A cold Infection Fever Shingles Chicken pox or exposure to chicken pox Open areas such as scrapes, cuts, toure or other skin conditions Rashes GENERAL INSTRUCTIONS FOR PREPARING FOR SURGERY: BATHING INSTRUCTIONS: Bathe the evening prior to and the morning of surgery/procedure. Cleanse your body using ONLY anti-bacterial soap (eg, Dial, Safeguard) or any specific soap/cleansers and instructions provided by your surgeon (eg, Chlorhexidine). -You should brush your teeth the morning of surgery. Do NOT apply any lotions, powders, sprays, creams, oils, make-up, or deodorants after bathing. No hairspray, or nail malagasy on fingers or toes. Day of surgery/procedure do not use tampons. If you wear contacts wear your eyeglasses if available otherwise bring your contact supplies with you to remove them prior to your surgery/procedure. If you wear glasses or dentures, please bring cases in which you can store them during your surgery. Please remove all piercings and jewelry and leave them at home. Wear comfortable and loose clothing. -Please leave all valuables at home. -If you use a CPAP and are staying overnight, please bring your mask. -If you use an assistive mobility device (walker, cane, etc), please label it with your name and bring to hospital. -An escort mixer driver is required if you are being discharged the same day of the surgery. You should have a responsible adult over the age of 18 [address] you [address]. This person should be present with youin the hospital at the time of discharge and for the first 24 hours after the surgery to support your needs. If you are taking a taxi home, you must have your responsible republican accompany you in the taxi ride home at the time of discharge. OR times subject to change. Please check voiceZelgoril messages the day/evening before your surgery forany updates. PRE-OP: You will be taken to the pre-op area where your vital signs (blood pressure, pulse and temperature)will be taken. Any preparations that need to be done will be done there. When it is time for your surgery, you will be taken to the operating room. PARENTS OF PEDIATRIC PATIENTS WILL BE ALLOWED TO STAY WITH THEIR CHILDREN UNTIL THEY ARE ESCORTED TO THE OPERATING ROOM OUTPATIENT SURGERY PATIENTS: After your surgery you will be taken to the Same Day Surgery Unit when you are awake and will go home from there. You will get instructions about your home care before you leave. Arrange to have someone drive you home from the hospital. You may not drive for 24 hours after anesthesia. You must havean adult stay with you at home for 24 hours after your operation. This is very important. If you are not able to comply with these guidelines, your Short Stay surgery cannot be done. ADMISSION PATIENTS: After your stay in the recovery area, you will be taken to your room. Your family may visit you in your room based on current visitation policy. If a next day discharge is expected, it is important to make arrangements for a mixer driver to take you home. Please be aware our visitation policies are subject to change Professionals, attendants, caregivers or family members are allowable visitors for patients with intellectual, developmental or cognitive disabilities, communication barriers or behavioral concerns. Because patients' and families' needs vary, they will be taken into account when applying visitation restrictions. ~SEE ANESTHESIA EVENT FOR PRE-OP ANESTHESIA ASSESSMENT~ ~~~~~~~~~~~~~~~~~~~~~~~~~~~~~~~~~~~~~~~~~~~~~~~~~~~~ Patient identified by name/birthdate Optime case procedure confirmed with surgical consent Laterality confirmed as N/a Surgery date at time of Pre-Surgery Center Encounter: 11/28/2023 What procedure is patient having? Laparoscopy repair Paraesophageal hernia, Fundoplication, Endoscopy, possible implantation of mesh, possible gastroplasty, possible open incision for paraesophageal hiatal hernia Anesthesia Consent pool notified: N/A In an emergency, is patient willing to accept blood products or blood transfusion? Yes Does Blood Bank order need placed? No. Anesthesia evaluation requested per case documentation. No Preop Eval Requested? No PATIENT EDUCATION SCREENING Education Screening: Patient Preoperative bathing instructions were reviewed with patient. Motivation Level: Asks Questions and Eager to Learn Language Barrier: No Physical Barrier: [employer], B/L hearing aids Patient Preferred Learning Methods: Reading and Lecture LEARNING NEED: Printed Patient Education Given: Preop Information: Adult Persons present for education: Patient METHOD: One to One OUTCOME: State / Describe / Explain PATIENT INSTRUCTIONS GIVEN: General Preoperative Instructions Reviewed Medication Instructions Reviewed NPO Instructions Reviewed Verbalizes understanding of education: Yes COVID-19/Coronavirus Screening: Informant: Patient Have you been experiencing any symptoms of viral infection of the upper respiratory system (fever, cough, shortness of breath, myalgia, fatigue) in the last 16 days? No Symptoms started N/a Symptoms include none Symptom severity is N/a Additional details include: N/A In the last month, have you been in contact with someone who was confirmed or suspected to have Coronavirus/ COVID-19? No In the last month, have you been in contact with someone who was experiencing upper respiratory symptoms of viral infection? No Have you been diagnosed with COVID-19/Coronavirus? No If so, when were you given this diagnosis? N/a Are you currently experiencing any residual symptoms? When did your symptoms resolve? No, N/a Has patient undergone Infectious Disease consultation for Coronavirus/ COVID-19? No Does patient require Infectious Disease consultation/referral? No Pre-Anesthesia Review of Systems, Health History and Education completed Signature: KEYONA Lewis 11/07/2023 documented in this encounter Plan of Treatment Upcoming Encounters Date Type Department Care Team (Latest Contact Info) Description 11/20/2023 2:45 PM EDT Telemedicine General [facility] [address] [place], [place] [phone] Best Shelley MD [address] [place], [place] [phone] 11/28/2023 11:28 AM EDT Hospital Encounter OR [facility], OPERATING ROOM [facility], [facility] [address] [place] [phone] Christophe Henriquez MD [address] [place], [place] [phone] 11/28/2023 11:28 AM EDT Anesthesia Event OR [facility], OPERATING ROOM [facility], [facility] [address] [place] [phone] Ramiro Skelton CRNP [address] [place], [place] [phone] 11/28/2023 11:28 AM EDT - 11/28/2023 4:12 PM EDT Surgery OR [facility], OPERATING ROOM [facility], [facility] [address] [place] [address] Christophe Henriquez MD [address] [place] [address] LAPAROSCOPIC PARAESOPHAGEAL HERNIA REPAIR WO/ MESH 12/16/2023 8:45 AM EDT Office Visit General [facility] [address] [place] [address] Christophe Henriquez MD [address] [place] [address] 01/06/2024 3:00 PM EDT Office Visit Hematology/Oncolog y [facility] [address] [facility] [place] [phone] Pepito Chiang MD [address] [facility] [place] [address] 02/24/2024 1:40 PM EST Office Visit Rheumatology [place] [phone] [employer] [place] [address] Niraj Shukla MD [facility] [employer] [place] [address] 04/22/2024 1:40 PM EST Office Visit General Internal Medicine [facility] [address] [facility] [place] [address] Lana Eden MD [address] [facility] [place] [address] 09/02/2024 2:00 PM EDT Office Visit Cardiology, [facility] [address] [facility] [place] [address] Billy Anthony PA-Precious [address] [place] [address] Scheduled Orders Name Type Priority Associated Diagnoses Orde r Schedule CBC WITH WBC DIFFERENTIAL AND ANEMIA REFLEX WORKUP Lab Routine Pre-operative examination Expected: 11/07/2023, Expires: 11/06/2024 Scheduled Procedures Name Priority Associated Diagnoses Date/Ti [...] 07/16/2023 07/15/2022, , 01/03/2022, Additional history exists *NEPHROLOGY 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 RESISTANT HTN 08/23/2023 Diabetic Foot Exam 11/06/2023 11/05/2022 (Precious hagen Completed), 08/09/2021 Influenza Vaccine (FLU shot) (#1) 2023 12/27/2022, 12/19/2021, 01/10/2021, Additional history exists Depression Screening 12/28/2023 12/27/2022 DTaP,Tdap,and Td Vaccines (3 - Td or Tdap) 12/30/2023 12/29/2013, 06/12/2005 HbA1c 04/10/2024 10/10/2023, 07/13, 04/24/2023, Additional history exists DXA Scan 05/29/2024 05/29/2022 Albumin/Creatinine Ratio 10/09/2024 024, 12/13/2022, 11/13/2022, Additional history exists GFR 10/13/2024 10/14/2023, 09/13, 08/10/2023, Additional history exists Pneumococcal Vaccine: 65+ Years Completed 05/20/2017, 11/08/2015 Zoster Vaccines Completed 08/18/2019, 04/16, 06/12/2011 VITAMIN D LEVEL ONCE IN A LIFETIME-USE SMARTSET# [id number] Completed 02/10/2023, 11/20/2021, 05/08/2021 Hepatitis B Vaccine [...] hernia without mention of obstruction or gangrene Pre-operative examination- Primary Preoperative examination, unspecified Paraesophageal hiatal hernia Diaphragmatic hernia without mention of obstruction or gangrene SVT (supraventricular tachycardia) (HCC) Other specified cardiac dysrhythmias Paraesophageal hiatal hernia Diaphragmatic hernia without mention of obstruction or gangrene documented in this encounter Advance Directives Documents on File Type Date Recorded 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 Question Answer Comments Discussion of Advance Directives occurred with: Patient Care Teams Line Tender Relationship Specialty Start Date End Date Lana Eden MD [address] [facility] [place] [address] PCP - General Internal Medicine 12/04/20 documented as of this encounter
--- OUTSIDE RECORDS SUMMARY | 2024-02-20 11:48 | External Medical Summary ---
Author Name Unknown Address Unknown Organization K01:[facility] [place] [address] [facility] [address] Laboratory Report Ordering Provider Test Date Status JOSE RAFAEL BONILLA 11/07/2023 15:07:51 Final Observation Date Value Abnormality Reference (Units ) Status HbA1C 11/07/2023 15:07:51 6.7 Above high normal 4. 0-5.6 (%) Final The use of HbA1c to monitor glycemic status is based on normal hemoglobin and HbA composition. This test should not be used in patients with abnormal hemoglobin that affects the half life of the red blood cell or the in vivo glycation rates. Glucose, estimated average 11/07/2023 15:07:51 146 Above high normal <126 (mg/dL) Hi davdi Performing Location [facility] [place] [address] [facility] [address]
--- OUTSIDE RECORDS SUMMARY | 2024-02-20 11:48 | External Medical Summary ---
Author Name Unknown Address Unknown Organization K01:[facility] [place] [address] [facility] [address] Laboratory Report Ordering Provider Test Date Status DRISS GALLARDO 11/07/2023 15:07:51 Final Observation Date Value Abnormality Reference (Units ) Status SYNC LEUKOCYTES IN BLOOD BY AUTOMATED COUNT 11/07/2023 15:07:51 12.16 Above high normal 4.00-10.80 (K/uL) Final Segs 11/07/2023 15:07:51 87.2 Above high normal 40.0-75.0 (%) Final Lymphs % 11/07/2023 15:07:51 4.8 Below low normal 18.0-42.0 (%) Final Monos 11/07/2023 15:07:51 6.7 1.0-11.0 (%) Final Eosinophils 11/07/2023 15:07:51 0.3 0.0-6.0 (%) Final Basos 11/07/2023 15:07:51 0.3 0.0-2.0 (%) Final Immature Granulocyte, Percent 11/07/2023 15:07:51 0.7 0.0-2.0 (%) Final Absolute Segs 11/07/2023 15:07:51 10.60 Above high normal 1.80-7.70 (K/uL) Final Lymphs, absolute 11/07/2023 15:07:51 0.58 Below low normal 1.00-4.80 (K/ul) Final Monos, Abs 11/07/2023 15:07:51 0.81 0.00-1.10 (K/uL) Final Eos, Abs 11/07/2023 15:07:51 0.04 0.00-0.70 (K/uL) Final Basos, Abs 11/07/2023 15:07:51 0.04 0.00-0.20 (K/uL) Final Immature Granulocytes, Number 11/07/2023 15:07:51 0.09 0.00-0.20 (K/uL) Final Performing Location [facility] [place] [facility] [address] [facility] [address]
--- OUTSIDE RECORDS SUMMARY | 2024-02-20 11:48 | External Medical Summary | Summary of Care ---
Author Name Unknown Organization [facility] Address [address] [place] [address] Phone [phone] Care Team Providers Care Surfboard Maker Name Role Phone Lana Eden MD Primary Care Provider [phone] Reason for Visit * Reason Comments H&P Surgery Encounter Details Date Type Department Care Team (Latest Contact Info) Description 11/07/2023 1:30 PM EDT Office Visit General Surgery, [place] [address] [place], [place] [phone] Cristiane Enriquez PA-C [address] [place] [address] Paraesophageal hiatal hernia*; Hyperlipidemia with [...] rhinitis, unspecified seasonality, unspecified trigger Administer 1 [place] into nostril in the morning and 1 [place] before bedtime. 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 Dyslipidemia, goal to be determined [...] discharge instructions and in a mailing from [employer] 5) MEDICATIONS Use Gasex gelcaps up to [...] Nurse Coordinator 24 HOUR CONTACT # : ([employer] verifying machine operator) You can contact any physician member of the surgical team through the [employer] verifying machine operator 24 hours a day Your surgeon Minimally Invasive Surgical Fellow manager combination vice president quality assurance manager combination Bariatric Medicine manager combination documented in this encounter Progress Notes * Cristiane Enriquez PA-C - 11/07/2023 1:30 PM EDT Images from the original note were not included. [facility]" AT [facility] CLINIC VISIT Date: 11/07/2023 Last Clinic Visit 10/09/2023 Harpreet Sadie Jm [id number] 83 year old PCP: Lana Eden MD Consult requested by: Chet Bhagat DO CC: Harpreet Oneal comes to see me in [facility] Esophageal [facility] Reflux Disorders ("[facility]") [...] by the physician, the nurse and the metal buggy operator. The procedure was verified in the procedure [...] saturations were monitored continuously. The [id number]-[id number] Endoscope ([id number]) was introduced through the mouth, and advanced [...] 0.1 % Nasal Solution (Astelin) Administer 1 [place] into nostril in the morning and 1 [place] before bedtime. 90 mL 3 Furosemide 20 [...] up COLONOSCOPY, DIAGNOSTIC (RECTUM) 09/03/2017 adenomatous polyp, diverticulosis/[facility] COLONOSCOPY, DIAGNOSTIC (RECTUM) 07/17/2023 COLONOSCOPY FLEXIBLE PROXIMAL DIAGNOSTIC performed by Chet Bhagat DO at ENDOSCOPY [facility] EGD, FLEXIBLE, DIAGNOSTIC 02/10/2019 acid reflux, hiatal hernia, repeat 2 mo / [facility] EGD, FLEXIBLE, DIAGNOSTIC 05/11/2019 acid reflux, hiatal hernia / [facility] EGD, FLEXIBLE, DIAGNOSTIC 07/17/2023 ESOPHAGOGASTRODUODENOSCOPY (EGD), FLEXIBLE, TRANSORAL, DIAGNOSTIC performed by Chet Bhagat DOat ENDOSCOPY [facility] LAPAROSCOPIC COLECTOMY PARTIAL WITH ANASTOMOSIS N/A 08/05/2023 LAPAROSCOPIC PARTIAL COLECTOMY WITH ANASTOMOSIS performed by Best Shelley MD at OR [facility] MISCELLANEOUS ORDER ([facility] ONLY) 10/08/2019 skin lesion removed [...] following diagnostic tests Esophageal manometry- Patient refused Path Review: None The following surgical [...] will be given today Acetaminophen Zofran 4) Ajzmine-operative multi-modal pain Control to include: Order APAP [...] Cristiane Enriquez PA-C Bariatric and Foregut Surgery [facility] 11/07/2023 documented in this encounter Plan of Treatment Upcoming Encounters Date Type Department Care Team (Latest Contact Info) Description 11/07/2023 2:15 PM EDT Pre-Admission Testing Pre Surgery [place], [address] [phone] 11/20/2023 2:45 PM EDT Telemedicine [facility], [address] [phone] Best Shelley MD [facility] [address] [place], [place] [phone] 11/28/2023 11:28 AM EDT Hospital Encounter [place] [facility], OPERATING ROOM [facility], [address] [phone] Christophe Henriquez MD [address] [place] [phone] 11/28/2023 11:28 AM EDT - 11/28/2023 4:12 PM EDT Surgery OR [facility], OPERATING ROOM [address] [phone] Christophe Henriquez MD [address] [place] [phone] LAPAROSCOPIC PARAESOPHAGEAL HERNIA REPAIR WO/ MESH 12/16/2023 8:45 AM EDT Office Visit General [address] [address] Christophe Henriquez MD [address] [place] [address] 01/06/2024 3:00 PM EDT Office Visit Hematology/Oncolo gy [facility] [place] [address] [place] [phone] Pepito Chiang MD [address] [place] [address] 02/24/2024 1:40 PM EST Office Visit Rheumatology [facility] [address] [facility] [place] [address] Niraj Shukla MD [address] [facility] [place] [address] 04/22/2024 1:40 PM EST Office Visit General Internal Medicine [facility] [address] [facility] [place] [address] Lana Eden MD [address] [facility] [place] [address] 09/02/2024 2:00 PM EDT Office Visit Cardiology, [facility] [address] [place] [address] Billy Anthony PA-C [address] [place] [address] Scheduled Orders Name Type Priority Associated Diagnoses Orde r Schedule EKG EKG Routine Paraesophageal hiatal hernia SVT (supraventricular tachycardia) (HCC) Pre-operative examination Expected: 11/07/2023 (Approximate), Expires: 12/07/2024 Scheduled Procedures Name Priority Associated Diagnoses Date/Ti [...] D LEVEL ONCE IN A LIFETIME-USE SMARTSET# [id number] Completed 02/10/2023, 11/20/2021, 05/08/2021 Hepatitis B Vaccine [...] splenic flexure Pre-operative examination Preoperative examination, unspecified Paraesophageal hiatal hernia Diaphragmatic hernia without mention of obstruction or gangrene documented in this encounter Advance Directives Documents on File Type Date Recorded 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 Question Answer Comments Discussion of Advance Directives occurred with: Patient Care Teams Surfboard Maker Relationship Specialty Start Date End Date Lana Eden MD [address] [facility] [place] [address] PCP - General Internal Medicine 12/04/20 documented as of this encounter
--- OUTSIDE RECORDS SUMMARY | 2024-02-20 11:48 | External Medical Summary | Summary of Care ---
Author Name Unknown Organization [facility] Address [address] [place] [address] Phone [phone] Care Team Providers Care Decorator Consultant Name Role Phone Lana Eden MD Primary Care Provider [phone] Reason for Visit * Reason Comments Outpatient Testing Encounter Details Date Type Department Care Team (Late st Contact Info) Description 11/07/2023 3:10 PM EDT Laboratory Outpatient Laboratory, [place] [address] [place] [address] [place], Lab B1a [address] [place] [address] Malignant neoplasm of splenic flexure (HCC); Type 2 diabetes mellitus with hemoglobin A1c goal of less than 7.0% (HCC); Pre-operative examination Allergies Active Allergy Reactions [...] rhinitis, unspecified seasonality, unspecified trigger Administer 1 [place] into nostril in the morning and 1 [place] before bedtime. 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 skilled nursing current use of systemic steroids 07/30 Steroid-induced [...] Description 11/20/2023 2:45 PM EDT [facility] [address] [place] [address] Best Shelley MD [address] [place] [address] 11/28/2023 11:28 AM EDT Hospital Encounter OR [facility], OPERATING ROOM [facility], [facility] [address] [place] [address] Christophe Henriquez MD [address] [place] [address] 11/28/2023 11:28 AM EDT Anesthesia Event OR [facility], OPERATING ROOM [facility], [facility] [address] [place] [phone] Ramiro Skelton CRNP [address] [place] [address] 11/28/2023 11:28 AM EDT - 11/28/2023 4:12 PM EDT Surgery OR [facility], OPERATING ROOM [facility], [facility] [address] [place] [address] Christophe Henriquez MD [address] [place] [address] LAPAROSCOPIC PARAESOPHAGEAL HERNIA REPAIR WO/ MESH 12/12/2023 2:00 PM EDT Office Visit General Surgery, [facility] [address] [facility] [place] [address] Anna Ash MD [address] [place] [facility] [address] 01/06/2024 3:00 PM EDT Office Visit Hematology/Oncolog y [facility] [address] [place] [phone] Pepito Chiang MD [address] [place], [place] [address] 02/24/2024 1:40 PM EST Office Visit Rheumatology [place] [address] [facility] [place], [place] [address] Niraj Shukla MD [facility] [place], [place] [address] 04/22/2024 1:40 PM EST Office Visit General Internal Medicine [facility] [address] [place] [address] Lana Eden MD [address] [facility] [place], [place] [address] 09/02/2024 2:00 PM EDT Office Visit Cardiology, [facility] [address] [facility] [place] [address] Billy Anthony PA-C [address] [facility] [place] [address] Pending Results Name Type Priority Associated Diagnoses Date /Time COMPREHENSIVE METABOLIC PANEL Lab Routine Malignant neoplasm of splenic flexure (HCC) 11/07/2023 3:07 PM EDT CEA Lab Routine Malignant neoplasm of splenic flexure (HCC) 11/07/2023 3:07 PM EDT HEMOGLOBIN A1C Lab Routine Type 2 diabetes mellitus with hemoglobin A1c goal of less than 7.0% (HCC) 11/07/2023 3:07 PM EDT CBC WITH WBC DIFFERENTIAL AND ANEMIA REFLEX WORKUP Lab Routine Pre-operative examination 11/07/2023 3:07 PM EDT ANEMIA CBC Lab Routine Pre-operative examination 11/07/2023 3:07 PM EDT DIFFERENTIAL, AUTOMATED Lab Routine Pre-operative examination 11/07/2023 3:07 PM EDT ANEMIA REFLEX CHEMISTRY HOLD Lab Routine Pre-operative examination 11/07/2023 3:07 PM EDT Scheduled Procedures Name Priority Associated [...] 08/23/2023 Diabetic Foot Exam 11/06/2023 11/05/2022 (Precious gustafsone [...] D LEVEL ONCE IN A LIFETIME-USE SMARTSET# [id number] Completed 02/10/2023, 11/20/2021, 05/08/2021 Hepatitis B Vaccine [...] hernia without mention of obstruction or gangrene 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 Question Answer Comments Discussion of Advance Directives occurred with: Patient Care Teams Decorator Consultant Relationship Specialty Start Date End Date Lana Eden MD [address] [place] [address] PCP - General Internal Medicine 12/04/20 documented as of this encounter
--- OUTSIDE RECORDS SUMMARY | 2024-02-20 11:48 | External Medical Summary ---
Author Name Unknown Address Unknown Organization K01:[place] [facility] [place] [address] [facility] [address] Laboratory Report Ordering Provider Test Date Status DRISS GALLARDO 11/07/2023 15:07:51 Final Observation Date Value Abnormality Reference (Units ) Status WBC, Total 11/07/2023 15:07:51 12.16 Above high normal 4 .00-10.80 (K/uL) Final RBC 11/07/2023 15:07:51 4.66 4.50-5.25 (M/uL) Final Hemoglobin 11/07/2023 15:07:51 13.4 Below low normal 14 .0-16.8 (g/dL) Final Anemia reflex testing trigge rs on a HGB < 12.0 for Females and HGB < 13.0 for Males in accordance with the WHO Anemia Guidelines
Anemia reflex testing triggers on a HGB < 12.0 for Females and HGB < 13.0 for Males in accordance with the WHO Anemia Guidelines HCT 11/07/2023 15:07:51 42.4 40.0-48.4 (%) Final MCV 11/07/2023 15:07:51 91.0 82.0-99.5 (fL) Final MCH 11/07/2023 15:07:51 28.8 27.0-34.0 (pg) Final MCHC 11/07/2023 15:07:51 31.6 32.0-36.0 (g/dL) Final RDW 11/07/2023 15:07:51 16.1 11.5-15.5 (%) Final Platelets 11/07/2023 15:07:51 252 140-400 (K /uL) Final MPV 11/07/2023 15:07:51 11.7 6.6-11.1 ( fL) Final Nucleated erythrocytes/100 leukocytes [Ratio] in Blood by Automated count 11/07/2023 15:07:51 0 <=0 (/100 WBCs) Fi nal Performing Location [facility] [place] [address] [facility] [address]
--- OUTSIDE RECORDS SUMMARY | 2024-02-20 11:48 | External Medical Summary ---
Author Name Unknown Address Unknown Organization K01:[facility]ATORY [facility] [place] - 100 [facility] [address] Laboratory Report Ordering Provider Test Date Status TOBIN GUTIERREZ 11/07/2023 15:07:51 Final Observation Date Value Abnormality Reference (Units ) Status BUN 11/07/2023 15:07:51 22 Above high normal 6-20 (mg/dL) Final Creatinine 11/07/2023 15:07:51 0.9 0.6-1.2 (mg/dL) Final Glomerular filtration rate/1.73 sq M.predicted [Volume Rate/Area] in Serum, Plasma or Blood by Creatinine-based formula (CKD-EPI) 11/07/2023 15:07:51 81 >=60 (mL/min) Final eGFR is calculated based on the CKD-EPI 2020 equation. Sodium 11/07/2023 15:07:51 143 135-146 (m mol/L) Final Potassium 11/07/2023 15:07:51 4.0 3.5-5.1 (m mol/L) Final Cl 11/07/2023 15:07:51 104 98-107 (mm ol/L) Final CO2 11/07/2023 15:07:51 25 22-32 (mmo l/L) Final Anion gap 11/07/2023 15:07:51 14 7-15 (mmol /L) Final Glucose 11/07/2023 15:07:51 125 Above high normal 70 -120 (mg/dL) Final Albumin 11/07/2023 15:07:51 3.8 3.8-5.0 (g /dL) Final AST (Aspartate aminotransferase) 11/07/2023 15:07:51 18 10-50 (U/L) Fin al Alk Phos 11/07/2023 15:07:51 70 35-130 (U/ L) Final Bilirubin, Total 11/07/2023 15:07:51 0.4 <=1 .2 (mg/dL) Final Calcium 11/07/2023 15:07:51 9.9 8.4-10.2 ( mg/dL) Final Protein 11/07/2023 15:07:51 6.5 6.0-8.3 (g /dL) Final ALT (Alanine aminotransferase) 11/07/2023 15:07:51 23 10-50 (U/L) Hi david Performing Location LAB[facility]ATORY [facility] [place] - [address] [facility] [address]
--- OUTSIDE RECORDS SUMMARY | 2024-02-20 11:48 | External Medical Summary | Summary of Care ---
Author Name Unknown Organization [facility] Address [address] [place] [address] Phone [phone] Care Team Providers Care Rotary Furnace Tender Name Role Phone Lana Eden MD Primary Care Provider Reason for Visit * Reason Onset Date Comments Pre-op Clearance 11/13/2023 Encounter Details Date Type Department Care Team (Late st Contact Info) Description 11/13/2023 Telephone Cardiology, [facility] [address] [facility] [place] [address] Billy Anthony PA-C [address] [place] [address] Pre-op Clearance Allergies Active Allergy Reactions Criticality [...] rhinitis, unspecified seasonality, unspecified trigger Administer 1 [place] into nostril in the morning and 1 [place] before bedtime. 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 senior living current use of systemic steroids 07/30 Steroid-induced [...] to patient: pt Number to return call: [phone] Reason for call(brief): pre op Pharmacy: na Provider Name:Raj Detailed message to office:pt is calling to ask if he needs to come for a visit for pre op hiatal hernia repair [place] 11/28/23 [place] [facility] Last seen 08/2023 Thank you documented in this encounter Plan of Treatment Upcoming Encounters Date Type Department Care Team (Latest Contact Info) Description 11/20/2023 2:45 PM EDT [facility] [address] [place] [address] Best Shelley MD [address] [place] [address] 11/28/2023 11:28 AM EDT Hospital Encounter [facility] [address] [place] [address] Christophe Henriquez MD [address] [place] [address] 11/28/2023 11:28 AM EDT Anesthesia Event [facility], OPERATING ROOM [facility] [address] [place] [facility] [place] [address] Ramiro Skelton CRNP [address], [place] [id number] 11/28/2023 11:28 AM EDT - 11/28/2023 4:12 PM EDT Surgery OR [facility], OPERATING ROOM [facility] [address] [place] [facility] [place] [phone] Christophe Henriquez MD [address], [place] [address] LAPAROSCOPIC PARAESOPHAGEAL HERNIA REPAIR WO/ MESH 12/12/2023 2:00 PM EDT Office Visit General Surgery, [facility] [address] [place] [address] Anna Ash MD [address] [place], [place] [id number] 01/06/2024 3:00 PM EDT Office Visit Hematology/Oncolog y [facility] [address] [place] [address] Pepito Chiang MD 200 [facility] [place] [address] 02/24/2024 1:40 PM EST Office Visit Rheumatology [place] [address] [facility] [place] [place] [address] Niraj Shukla MD [facility] [place] [address] 04/22/2024 1:40 PM EST Office Visit General Internal Medicine [facility] [address] [place], [place] [address] Lana Eden MD [address] [place] [address] 09/02/2024 2:00 PM EDT Office Visit Cardiology, [facility] [address] [place] [address] Billy Anthony PA-C [address] [place] [address] Scheduled Procedures Name Priority Associated Diagnoses Date/Ti [...] D LEVEL ONCE IN A LIFETIME-USE SMARTSET# 19105 Completed 02/10/2023, 11/20/2021, 05/08/2021 Hepatitis B Vaccine [...] Documents on File Type Date Recorded 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 Question Answer Comments Discussion of Advance Directives occurred with: Patient Care Teams Rotary Furnace Tender Relationship Specialty Start Date End Date Lana Eden MD [address] [facility] [place] [address] PCP - General Internal Medicine 12/04/20 documented as of this encounter
--- OUTSIDE RECORDS SUMMARY | 2024-02-20 11:48 | External Medical Summary | Summary of Care ---
Author Name Unknown Organization [facility] Address [address] [place] [address] Phone [phone] Care Team Providers Care Vessel Engineer Name Role Phone Lana Eden MD Primary Care Provider [phone] Reason for Visit * Reason Comments H&P Surgery Encounter Details Date Type Department Care Team (Latest Contact Info) Description 11/07/2023 1:30 PM EDT Office Visit General Surgery, [place] [address], [place] [phone] Cristiane Enriquez PA-C [address] [place] [address] Paraesophageal hiatal hernia*; Hyperlipidemia with [...] rhinitis, unspecified seasonality, unspecified trigger Administer 1 [place] into nostril in the morning and 1 [place] before bedtime. 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 cook pie current use of systemic steroids 07/30 Steroid-induced [...] determined 07/09/2006 1 05/02/2008 Overview: Modified per [facility] protocol #16. Dyslipidemia, goal to be determined [...] discharge instructions and in a mailing from [employer]. 5) MEDICATIONS Use Gasex gelcaps up to [...] Nurse Coordinator 24 HOUR CONTACT # : ([facility] cyber operator) You can contact any physician member of the surgical team through the [facility] cyber operator 24 hours a day Your surgeon Minimally Invasive Surgical Fellow stone sandblaster vice president of academic affairs stone sandblaster Bariatric Medicine stone sandblaster documented in this encounter Progress Notes * Cristiane Enriquez PA-C - 11/07/2023 1:30 PM EDT Images from the original note were not included. [facility] "[facility]" AT [facility] CLINIC VISIT Date: 11/07/2023 Last Clinic Visit 10/09/2023 Harpreet Sadie Jm [id number] 83 year old PCP: Lana Eden MD Consult requested by: Chet Bhagat DO CC: Harpreet Oneal comes to see me in [facility] ("[facility]D [facility]") [...] by the physician, the nurse and the bull chain operator. The procedure was verified in the [...] saturations were monitored continuously. The [id number]-[id number] Endoscope ([id number]) was introduced through the mouth, and advanced [...] 0.1 % Nasal Solution (Astelin) Administer 1 [place] into nostril in the morning and 1 [place] before bedtime. 90 mL 3 Furosemide 20 [...] up COLONOSCOPY, DIAGNOSTIC (RECTUM) 09/03/2017 adenomatous polyp, diverticulosis/[facility] COLONOSCOPY, DIAGNOSTIC (RECTUM) 07/17/2023 COLONOSCOPY FLEXIBLE PROXIMAL DIAGNOSTIC performed by Chet Bhagat DO at ENDOSCOPY [facility] EGD, FLEXIBLE, DIAGNOSTIC 02/10/2019 acid reflux, hiatal hernia, repeat 2 mo / [facility] EGD, FLEXIBLE, DIAGNOSTIC 05/11/2019 acid reflux, hiatal hernia / [facility] EGD, FLEXIBLE, DIAGNOSTIC 07/17/2023 ESOPHAGOGASTRODUODENOSCOPY (EGD), FLEXIBLE, TRANSORAL, DIAGNOSTIC performed by Chet Bhagat DOat ENDOSCOPY [facility] LAPAROSCOPIC COLECTOMY PARTIAL WITH ANASTOMOSIS N/A 08/05/2023 LAPAROSCOPIC PARTIAL COLECTOMY WITH ANASTOMOSIS performed by Best Shelley MD at OR [facility] MISCELLANEOUS ORDER ([facility] ONLY) 10/08/2019 skin lesion removed [...] PA-C Bariatric and Foregut Surgery [facility] 11/07/2023 documented in this encounter Plan of Treatment Upcoming Encounters Date Type Department Care Team (Latest Contact Info) Description 11/07/2023 2:15 PM EDT Pre-Admission Testing Pre Surgery [place], [place] [address] [place] [address] [facility] [address] [place] [address] 11/20/2023 2:45 PM EDT Telemedicine General [facility], [place] [address] [place] [address] Best Shelley MD [address] [place], [place] [phone] 11/28/2023 11:28 AM EDT Hospital Encounter OR [facility], OPERATING ROOM [facility], [place] [address] [place] [address] Christophe Henriquez MD [facility] [address] [place], [place] [phone] 11/28/2023 11:28 AM EDT - 11/28/2023 4:12 PM EDT Surgery OR [facility], OPERATING ROOM [facility], [place] [address] [place] [phone] Christophe Henriquez MD [facility] [address] [place], [place] [phone] LAPAROSCOPIC PARAESOPHAGEAL HERNIA REPAIR WO/ MESH 12/16/2023 8:45 AM EDT Office Visit General [place] [address] [place] [address] Christophe Henriquez MD [address] [place] [address] 01/06/2024 3:00 PM EDT Office Visit Hematology/Oncolo gy [facility] [place] [address] [place] [address] Pepito Chiang MD [address] [place] [address] 02/24/2024 1:40 PM EST Office Visit Rheumatology [facility] [address] [facility] [place] [address] Niraj Shukla MD [address] [facility] [place] [address] 04/22/2024 1:40 PM EST Office Visit General Internal Medicine [facility] [address] [facility] [place] [address] Lana Eden MD 200 [facility] [place] [address] 09/02/2024 2:00 PM EDT Office Visit Cardiology, [facility] [address] [place] [address] Billy Anthony PA-C [address] [place] [address] Scheduled Orders Name Type Priority Associated Diagnoses [...] D LEVEL ONCE IN A LIFETIME-USE SMARTSET# 33084 Completed 02/10/2023, 11/20/2021, 05/08/2021 Hepatitis B Vaccine [...] Documents on File Type Date Recorded 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 Question Answer Comments Discussion of Advance Directives occurred with: Patient Care Teams Vessel Engineer Relationship Specialty Start Date End Date Lana Eden MD [address] [facility] [place] [address] PCP - General Internal Medicine 12/04/20 documented as of this encounter
--- OUTSIDE RECORDS SUMMARY | 2024-02-20 11:48 | External Medical Summary ---
Author Name Unknown Address Unknown Organization K01:[facility] [place] [address] [place] [address] Laboratory Report Ordering Provider Test Date Status TOBIN GUTIERREZ 11/07/2023 15:07:51 Final Observation Date Value Abnormality Reference (Units ) Status CEA 11/07/2023 15:07:51 2.4 <=5.2 (ng/ mL) Final Performing Location LABORATORY [facility] - [address] [place] [address]
--- OUTSIDE RECORDS SUMMARY | 2024-02-20 11:49 | External Medical Summary | Summary of Care ---
Author Name Unknown Organization [facility] Address [address] [place] [address] Phone [phone] Care Team Providers Care Stonecutter Hand Name Role Phone Lana Eden MD Primary Care Provider [phone] Reason for Visit * Reason Comments Follow Up 6 month Encounter Details Date Type Department Care Team (Late st Contact Info) Description 10/20/2023 11:40 AM EDT Office Visit General Internal Medicine [facility] [address] [place] [address] Lana Eden MD [address] [place] [address] Malignant neoplasm of splenic flexure (HCC)*; Polymyalgia rheumatica (HCC); Type 2 diabetes mellitus with hemoglobin A1c goal of less than 7.0% (HCC); SVT (supraventricular tachycardia) (HCC); Steroid-induced osteoporosis; Sensorineural hearing loss, bilateral; Need for hepatitis B vaccination; PMR (polymyalgia rheumatica) (HCC); Paraesophageal hiatal hernia; Bilateral impacted cerumen; Multiple subsegmental pulmonary emboli without acute cor pulmonale (HCC); Male hypogonadism; intermediate current use of systemic steroids; Hyperlipidemia with target LDL less than 100; Iron deficiency anemia, unspecified iron deficiency anemia type; HTN, GOAL BELOW 140/90; Gastroesophageal reflux disease without esophagitis; Allergic rhinitis, unspecified seasonality, unspecified trigger Allergies Active Allergy Reactions Criticality Noted Date Comments Amoxicillin-Pot Clavulanate 02/24/20 19 Codeine High 01/05/2020 Other reaction(s): "I GOT REALLY SICK" Hydrocodone Bit-Homat[place] Mbr 017 Levothyroxine Sodium Hives,Rash High 10/01/2010 documented as of this encounter (statuses as of 10/24/2023) Medications Medication Sig Dispensed Refills Start Date [...] rhinitis, unspecified seasonality, unspecified trigger Administer 1 [place] into nostril in the morning and 1 [place] before bedtime. 90 mL 3 3 Active [...] IN THE MORNING 90 Tablet 1 4 Active Metoprolol Succinate ER 25 MG Oral Tablet Extended Release 24 Hour (toPROL XL) Take 2 Tablets by mouth in the morning. 180 Tablet 2 4 Active CoQ-10 30 MG Oral Capsule Take by mouth. Active NAC 500 MG Oral Capsule (Acetylcysteine) Take by mouth. Acti ve Potassium Chloride ER 10 MEQ Oral Tablet Extended ReleaseIndicatio ns:Hypokalemia Take 2 Tablets by mouth daily. 90 Tablet 3 4 Active predniSONE 10 MG Oral Tablet (Deltasone)Indic ations:Polymyalg ia rheumatica (HCC) Take 1 Tablet by mouth in the morning. Taking 7.5 mg daily now. 4 Active predniSONE 10 MG Oral Tablet (Deltasone)Indic ations:Polymyalg ia rheumatica (HCC) Take 1 Tablet by mouth in the morning. 90 Tablet 4 3 10/20/19 24 Discontinued predniSONE 2.5 MG Oral Tablet (Deltasone)Indic ations:Multiple subsegmental pulmonary emboli without acute cor pulmonale (HCC),Polymyalgi a rheumatica (HCC) Take 1 Tablet by mouth in the morning. 90 Tablet 3 3 10/20/19 24 Discontinued(End of Procedure) Triamterene-HCTZ 37.5-25 MG Oral Tablet (Maxzide-25) Take 0.5 Tablets by mouth in the morning. 4 10/20/19 24 Discontinued(End of Procedure) dilTIAZem HCl ER Coated Beads 300 MG Oral Capsule Extended Release 24 Hour (Cardizem CD) TAKE 1 CAPSULE DAILY IN THE EVENING 90 Capsule 3 4 10/20/19 24 Discontinued(End of Procedure) documented as of this encounter (statuses as of 10/24/2023) Active Problems Problem Noted Date Diagnosed Date [...] as of this encounter (statuses as of 10/24/2023) Resolved Problems Problem Noted Date Diagnosed Date [...] as of this encounter (statuses as of 10/24/2023) Immunizations Name Administration Dates Next Due COVID-19 [...] Sign Reading Time Taken Comments Blood Pressure 148/88 10/20/2023 11:49 AM EDT Pulse 75 10/20/2023 11:49 AM EDT Temperature 36.2 C (97.1 F) 10/20/2023 11:49 AM E DT Respiratory Rate 16 10/20/2023 11:49 AM EDT Oxygen Saturation 98% 10/20/2023 11:49 AM EDT Inhaled Oxygen Concentration - - Weight 91.9 kg (202 lb 9.6 oz) 10/20/2023 11:49 AM EDT Height 165.1 cm (5' 5") 10/20/2023 11:49 AM EDT Body Mass Index 33.71 10/20/2023 11:49 AM EDT documented in this encounter Functional [...] as of this encounter Progress Notes * Tri Whalen MED ASSIST - 10/20/2023 12:28 PM EDT Irrigation Solution: Up to 200 ml of solution may be instilled with one Procedure Solution Used: Water 180 ml/ Hydrogen Peroxide 20 ml (Mixed) Ear(s) Irrigated: Bilateral Response: Particulate Returned and Patient Tolerated Well Provider was notified when lavage is complete for re-examination of ear TE Solomon Time Out Procedure Performed: Yes Patient Identified (Ask Name/Date of ): Yes Patient allergic to latex? No VFC Stock? No Immunization(s) verified: Yes, Immunization Name: Hep B, VIS Sheet(s) given: Yes Verified Side and Site: Yes Verified Shot(s) with Parent(s)/Patient: Yes * Lana Eden MD - 10/20/2023 11:58 AM EDT Images from the original note were not included. History of Present Illness Harpreet Oneal is a 83 year old male that presents for Follow Up (6 month) 83 year old male with a history of HTN, Hyperlipidemia, DVT, SVT, GERD, Prediabetes, Hypogonadism, TVA of the colon, and possible Myasthenia Gravis presents here for recheck. Acute concern :- -he has anemia which lead to colonoscopy and found to have adenocancerous polyp . Cancer very earlyand underwent lap splenic flexure resection . Appreciative of early intervention . DS reviewed -not able to eat . Feels bloated , stomach discomfort and feels food after eating and has lost somewt . In EGD found to have paraesophageal hernia and thought to be the cayse . Has surgery planned soon -less hearing and asking for wax removal Interimmedical history : as above . Fatigue improved and decreased prednisone to 7.5 mg and planning ot go down to 5 mg Watching diet and exercise : gradually getting back to his previous activity . Routine labs : reviewed . Due next month Routine HM : agreeable to catch up Chronic medical problem: reviewed and stable Physical Exam Vitals: 10/20/23 1149 Temp: 36.2 C (97.1 F) Pulse: 75 Resp: 16 SpO2: 98% BP: 148/88 BMI: 33.71 Physical Exam Vitals and nursing note reviewed. Constitutional: General: He is not in acute distress. Appearance: He is normal weight. HENT: Head: Normocephalic. Right Ear: There is impacted cerumen. Left Ear: There is impacted cerumen. Cardiovascular: Rate and Rhythm: Normal rate and regular rhythm. Pulmonary: Effort: Pulmonary effort is normal. No respiratory distress. Breath sounds: No wheezing. Abdominal: General: Bowel sounds are normal. There is no distension. Palpations: Abdomen is soft. There is no mass. Tenderness: There is no abdominal tenderness. Comments: Healed surgical scar Musculoskeletal: General: No swelling, tenderness or signs of injury. Cervical back: Neck supple. No rigidity. Skin: General: Skin is warm. Findings: No lesion or rash. Neurological: Mental Status: He is alert. Psychiatric: Mood and Affect: Mood normal. I have reviewed the following results: CMP and CBC Assessment and Plan Malignant neoplasm of splenic flexure (HCC) S/p surgery and doing well F/u with surgical oncology Polymyalgia rheumatica (HCC) Agreed with continue to lower prednisone Type 2 diabetes mellitus with hemoglobin A1c goal of less than 7.0% (HCC) Await current treatment and plan until lab result comes back - HEMOGLOBIN A1C; Future SVT (supraventricular tachycardia) (HCC) Steroid-induced osteoporosis Sensorineural hearing loss, bilateral Need for hepatitis B vaccination - HEP B VACCINE, 20+ YRS (3-DOSE) PMR (polymyalgia rheumatica) (HCC) Paraesophageal hiatal hernia Surgery as planned Bilateral impacted cerumen - REMOVAL IMPACTED CERUMEN IRRIGATION/LAVAGE, UNILAT Multiple subsegmental pulmonary emboli without acute cor pulmonale (HCC) Male hypogonadism 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 documented in this encounter Nursing Notes * Tri Whalen, MED ASSIST - 10/20/2023 11:49 AM EDT Harpreet Oneal presents for 6 month recheck. Patient sees podiatry for foot exam. He sees [facility] for his eye exam. He saw both this year. Medications & HM reviewed. documented in this encounter Plan of Treatment Upcoming Encounters Date Type Department Care Team (Latest Contact Info) Description 11/07/2023 1:30 PM EDT Office Visit General Surgery, [facility] [address] [place] [address] Cristiane Enriquez PA-C [address] [place] [address] 11/07/2023 2:15 PM EDT Pre-Admission Testing Pre [facility], [place] [address] [place] [address] [facility] [address] [place] [address] 11/20/2023 2:45 PM EDT Telemedicine General Surgery, [address] [address] Best Shelley MD [address] [place] [address] 11/28/2023 11:28 AM EDT Hospital Encounter [facility], OPERATING ROOM [facility], [facility] [address] [place] [phone] Christophe Henriquez MD [address] [place] [address] 11/28/2023 11:28 AM EDT - 11/28/2023 4:12 PM EDT Surgery OR [facility], OPERATING ROOM [facility], [facility] [address] [place] [phone] Christophe Henriquez MD [address] [place] [address] LAPAROSCOPIC PARAESOPHAGEAL HERNIA REPAIR WO/ MESH 12/16/2023 8:45 AM EDT Office Visit General Surgery, [facility] [address] [place] [address] Christophe Henriquez MD [address] [place] [address] 01/06/2024 3:00 PM EDT Office Visit Hematology/Oncolo gy [facility] [address] [place] [phone] Pepito Chiang MD [address] [place] [address] 02/24/2024 1:40 PM EST Office Visit Rheumatology [place] [address] [place] [address] Niraj Shukla MD [facility] [place] [address] 04/22/2024 1:40 PM EST Office Visit General Internal Medicine [facility] [address] [place] [address] Lana Eden MD [address] [place] [address] 09/02/2024 2:00 PM EDT Office Visit Cardiology, [facility] [address] [place] [address] Billy Anthony PA-C [address] [place] [address] Scheduled Orders Name Type Priority Associated Diagnoses Orde r Schedule HEMOGLOBIN A1C Lab Routine Type 2 diabetes mellitus with hemoglobin A1c goal of less than 7.0% (HCC) Expected: 11/20/2023 (Approximate), Expires: 10/19/2024 REMOVAL IMPACTED CERUMEN IRRIGATION/LAVAGE, UNILAT Procedures Routine Bilateral impacted cerumen Ordered: 10/21/2023 Scheduled Procedures Name Priority Associated Diagnoses Date/Ti [...] D LEVEL ONCE IN A LIFETIME-USE SMARTSET# [id number] Completed 02/10/2023, 11/20/2021, 05/08/2021 Hepatitis B Vaccine [...] or gangrene Malignant neoplasm of splenic flexure (HCC)- Primary Malignant neoplasm of splenic flexure Polymyalgia rheumatica (HCC) Polymyalgia rheumatica Type 2 diabetes mellitus with hemoglobin A1c goal of less than 7.0% (HCC) SVT (supraventricular tachycardia) (HCC) Other specified cardiac dysrhythmias Steroid-induced osteoporosis Other osteoporosis Sensorineural hearing loss, bilateral Need for hepatitis B vaccination Need for prophylactic vaccination and inoculation against viral hepatitis PMR (polymyalgia rheumatica) (HCC) Polymyalgia rheumatica Paraesophageal hiatal hernia Diaphragmatic hernia without mention of obstruction or gangrene Bilateral impacted cerumen Impacted cerumen Multiple subsegmental pulmonary emboli without acute cor pulmonale (HCC) Male hypogonadism Other testicular hypofunction intermediate current use of systemic steroids Encounter for long-term (current) use of steroids Hyperlipidemia with target LDL less than 100 Other and unspecified hyperlipidemia Iron deficiency anemia, unspecified iron deficiency anemia type HTN, GOAL BELOW 140/90 Unspecified essential hypertension Gastroesophageal reflux disease without esophagitis Esophageal reflux Allergic rhinitis, unspecified seasonality, unspecified trigger Paraesophageal hiatal hernia Diaphragmatic hernia without mention of obstruction or gangrene documented in this encounter Advance Directives Documents on File Type Date Recorded 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 Question Answer Comments Discussion of Advance Directives occurred with: Patient Care Teams Stonecutter Hand Relationship Specialty Start Date End Date Lana Eden MD [address] [place] [address] PCP - General Internal Medicine 12/04/20 documented as of this encounter
--- OUTSIDE RECORDS SUMMARY | 2024-02-20 11:49 | External Medical Summary | Summary of Care ---
Author Name Unknown Organization [facility] Address [address] [place] [address] Phone [phone] Care Team Providers Care Encephalographer Name Role Phone Lana Eden MD Primary Care Provider [phone] Reason for Visit * Reason Comments NEW PATIENT * Evaluate & Treat - Unlimited Visits (Within 10 days (routine)) - Authorized Specialty Diagnoses / Procedures Referred By Maral lawson Referred To Contact General Surgery Diagnoses Hiatal hernia Chet Bhagat, DO [address] [place] [address] Referral ID Status Reason Start Date Expiration Date Visits Requested Visits Authorized [id number] Authorized Specialty Services Required 09/15/[phone] Encounter Details Date Type Department Care Team (Latest Contact Info) Description 10/09/2023 12:30 PM EDT Office Visit General Surgery, [facility] [address] [place] [address] Christophe Henriquez MD [address] [place], [place] [phone] Paraesophageal hiatal hernia*; Hyperlipidemia with target LDL less than 100; Iron deficiency anemia due to chronic blood loss; Multiple subsegmental pulmonary emboli without acute cor pulmonale (HCC); SVT (supraventricular tachycardia) (HCC); Type 2 diabetes mellitus with hemoglobin A1c goal of less than 7.0% (HCC) Allergies Active Allergy Reactions Criticality Noted Date Comments Amoxicillin-Pot Clavulanate 02/24/20 19 Codeine High 01/05/2020 Other reaction(s): "I GOT REALLY SICK" Hydrocodone Bit-Homatrop Mbr 017 Levothyroxine Sodium Hives,Rash High 10/01/2010 documented as of this encounter (statuses as of 10/12/2023) Medications Medication Sig Dispensed Refills Start Date [...] by mouth 1 Capsule daily . Active dilTIAZem HCl ER Coated Beads 300 MG Oral Capsule Extended Release 24 Hour (Cardizem CD) TAKE 1 CAPSULE DAILY IN THE EVENING 90 Capsule 3 08/01/2022 Active Magnesium 100 MG Oral Capsule Take by mouth every evening. Active predniSONE 10 MG Oral Tablet (Deltasone)Indicat ions:Polymyalgia rheumatica (HCC) Take 1 Tablet by mouth in the morning. 90 Tablet 4 09/12/2022 Active predniSONE 2.5 MG Oral Tablet (Deltasone)Indicat ions:Multiple subsegmental pulmonary emboli without acute cor pulmonale (HCC),Polymyalgia rheumatica (HCC) Take 1 Tablet by mouth in the morning. 90 Tablet 3 11/25/2022 Active Additional Information Patient not taking.Reported on 09/01/2023 Zinc 22.5 MG Oral Tablet Take by mouth. Active Azelastine HCl 0.1 % Nasal Solution (Astelin)Indicatio ns:Allergic rhinitis, unspecified seasonality, unspecified trigger Administer 1 Mark[place] into nostril in the morning and 1 Markesan before bedtime. 90 mL 3 04/03/2023 Active Furosemide 20 MG Oral Tablet (Lasix)Indications :HTN, goal below 140/90,Edema, unspecified type Take 1 Tablet by mouth in the morning. 90 Tablet 3 04/24/2023 Active Vitamin B-12 1000 MCG Oral Tablet (Cyanocobalamin) Take 1 Tablet by mouth in the morning. Active Triamterene-HCTZ 37.5-25 MG Oral Tablet (Maxzide-25) Take 0.5 Tablets by mouth in the morning. 04/24/2023 Active Atorvastatin Calcium 20 MG Oral Tablet [...] MEQ Oral Tablet Extended ReleaseIndications :Hypokalemia Take 1 Tablet by mouth in the morning. 270 Tablet 3 01/23/2023 4 Discontinue d(Refill) documented as of this encounter (statuses as of 10/12/2023) Active Problems Problem Noted Date Diagnosed Date [...] as of this encounter (statuses as of 10/12/2023) Resolved Problems Problem Noted Date Diagnosed Date [...] as of this encounter (statuses as of 10/12/2023) Immunizations Name Administration Dates Next Due COVID-19 [...] Diptheria/Tetanus (PEDS) 06/12/2005 Hepatitis B, 20+ yrs 07/18/2023,04/24/2023 Pneumococcal Conjugate Vacc, 13 Valent (Prevnar) 11/08/2015 [...] as of this encounter Progress Notes * Christophe Henriquez MD - 10/09/2023 12:30 PM EDT Images from the original note were not included. [facility]" AT [facility] CLINIC VISIT 10/09/2023 Harpreet Oneal [id number] 83 year old PCP: Lana Eden MD Consult requested by: Chet Bhagat DO CC: Harpreet Oneal comes to see me in [facility] ("[facility]") complaining of refractory gastroesophageal reflux disease. HPI: History of colon cancer s/p recent resection July 2023, pT3pN0, Stage IIA. This patient has suffered from (Associated Signs and Symptoms) Dysphagia- patient doesn't describe dysphagia rather persistent abdominal pain Failure to thrive, and abdominal pain. Abdominal pain is occurring a few times per week. Patient has has experienced 20 lb weight loss. These have been present for about 1 year(Duration). Symptoms also include: Heartburn Score: 0 - [...] by the physician, the nurse and the inventory control specialist. The procedure was verified in the procedure [...] saturations were monitored continuously. The [id number] Endoscope ([id number]) was introduced through the mouth, and advanced [...] Take by mouth 1 Capsule daily . dilTIAZem HCl ER Coated Beads 300 MG Oral Capsule Extended Release 24 Hour (Cardizem CD) TAKE 1 CAPSULE DAILY IN THE EVENING 90 Capsule 3 Magnesium 100 MG Oral Capsule Take by mouth every evening. predniSONE 10 MG Oral Tablet (Deltasone) Take 1 Tablet by mouth in the morning. 90 Tablet 4 Zinc 22.5 MG Oral Tablet Take by mouth. Azelastine HCl 0.1 % Nasal Solution (Astelin) Administer 1 [place] into nostril in the morning and 1 [place] before bedtime. 90 mL 3 Furosemide 20 [...] Oral Capsule (Acetylcysteine) Take by mouth. predniSONE 2.5 MG Oral Tablet (Deltasone) Take 1 Tablet by mouth in the morning. (Patient not taking: Reported on 09/01/2023) 90 Tablet 3 Triamterene-HCTZ 37.5-25 MG Oral Tablet (Maxzide-25) Take 0.5 Tablets by mouth in the morning. (Patient not taking: Reported on 10/09/2023) Potassium Chloride ER 10 MEQ Oral Tablet Extended Release Take 2 Tablets by mouth daily. 90 Tablet 3 No current facility-administered medications for this visit. Allergies as of 10/09/2023 - Reviewed 10/09/2023 Allergen Reaction Noted Codeine 01/05/2020 Synthroid [levothyroxine [...] up COLONOSCOPY, DIAGNOSTIC (RECTUM) 09/03/2017 adenomatous polyp, diverticulosis/[facility] COLONOSCOPY, DIAGNOSTIC (RECTUM) 07/17/2023 COLONOSCOPY FLEXIBLE PROXIMAL DIAGNOSTIC performed by Chet Bhagat DO at ENDOSCOPY [facility] EGD, FLEXIBLE, DIAGNOSTIC 02/10/2019 acid reflux, hiatal hernia, repeat 2 mo / [facility] EGD, FLEXIBLE, DIAGNOSTIC 05/11/2019 acid reflux, hiatal hernia / [facility] EGD, FLEXIBLE, DIAGNOSTIC 07/17/2023 ESOPHAGOGASTRODUODENOSCOPY (EGD), FLEXIBLE, TRANSORAL, DIAGNOSTIC performed by Chet Bhagat DOat ENDOSCOPY [facility] LAPAROSCOPIC COLECTOMY PARTIAL WITH ANASTOMOSIS N/A 08/05/2023 LAPAROSCOPIC PARTIAL COLECTOMY WITH ANASTOMOSIS performed by Best Shelley MD [place] [facility] [place] ([facility] ONLY) 10/08/2019 skin lesion [...] and easy bruising or bleeding PHYSICAL EXAM: There were no vitals taken for this visit., There is no height or weight on file to calculate BMI. General: Alert and appropriate. Well-appearing and in [...] visit. 3) Following prescriptions will be given at preop visit. Acetaminophen Zofran 4) Jazmine-operative multi-modal pain Control to include: Order APAP (Tylenol) 975mg PO once Celecoxib (Celebrex) 400mg PO once (Do not use if GFR less than 60, ASA Allergy, or if using Ketorolac) Gabapentin as indicated 5) Hold anticoagulants: Other Apixiban . 6) PreOp EKG? Yes age >45 7) VTE Risk: Does the patient have [...] Preop orders placed in EPIC with H&P: NO 19) Pre-anesthesia orders placed: NO 20) Consent completed: YES; Date 10/09/23 21) Patient instruction sheet completed: YES 22) Is the patient being considered for Ambulatory Surgery (Same Day Discharge)? No. I spent a total of Greater than 55 mins (exact time 80 mins) on the date of service in preparation,delivery, and documentation of the care provided to Harpreet Oneal excluding any time spent in theperformance of separately billed services. Christophe Henriquez MD, FACS, [facility] [employer] [facility] Minimally Invasive/ Bariatric Surgery Fellowship documented in this encounter Nursing Notes * Lorena Mejia LPN - 10/09/2023 12:30 PM EDT New pt Hiatal hernia documented in this encounter Plan of Treatment Upcoming Encounters Date Type Department Care Team (Latest Contact Info) Description 10/20/2023 11:40 AM EDT Office Visit General Internal Medicine [facility] [address] [place] [address] Lana Eden MD [address] [place] [id number] 11/20/2023 2:45 PM EDT Telemedicine General Surgery, [place] [address] [place] [address] Best Shelley MD [address] [place], [place] [phone] 11/28/2023 11:28 AM EDT Hospital Encounter [place] [facility] [facility] [address] [place] [phone] Christophe Henriquez MD [address] [place], [place] [phone] 11/28/2023 11:28 AM EDT - 11/28/2023 4:12 PM EDT Surgery [place] [facility] [facility] [facility] [address] [place] [phone] Christophe Henriquez MD [address] [place], [place] [phone] LAPAROSCOPIC PARAESOPHAGEAL HERNIA REPAIR WO/ MESH 01/06/2024 3:00 PM EDT Office Visit Hematology/Oncolog y [facility] [address] [facility] [place] [address] Pepito Chiang MD [address] [facility] [place], [place] [address] 02/24/2024 1:40 PM EST Office Visit Rheumatology [place] [id number] [facility] [place] [address] Niraj Shukla MD [facility] [place] [address] 09/02/2024 2:00 PM EDT Office Visit Cardiology, [facility] [address] [place] [address] Billy Anthony PA-C [address] [place] [address] Scheduled Procedures Name Priority Associated Diagnoses [...] 07/16/2023 07/15/2022, , 01/03/2022, Additional history exists *BISPHONATE OR OTHER ACCEPTABLE MEDICATION NEEDED FOR OSTEOPOROSIS (REFER TO SMARTSET #1146) 07/27/2023 *NEPHROLOGY 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 RESISTANT HTN 08/23/2023 Hepatitis B (3 of 3 - 19+ 3-dose series) 10/23/2023 07/18/2023, 04/24/2023 Diabetic Foot Exam 11/06/2023 11/05/2022 (C hieu Completed), 08/09/2021 Depression Screening 12/28/2023 12/27/2022 DTaP,Tdap,and Td Vaccines (3 - Td or Tdap) 12/30/2023 12/29/2013, 06/12/2005 HbA1c 04/10/2024 10/10/2023, 07/13, 04/24/2023, Additional history exists DXA Scan 05/29/2024 05/29/2022 Albumin/Creatinine Ratio 10/09/2024 024, 12/13/2022, 11/13/2022, Additional history exists GFR 10/09/2024 10/10/2023, 07/14, 08/09/2023, Additional history exists Pneumococcal Vaccine: 65+ Years Completed 05/20/2017, 11/08/2015 Zoster Vaccines Completed 08/18/2019, 04/16, 06/12/2011 Influenza Vaccine (FLU shot) Completed , 12/19/2021, 01/10/2021, Additional history exists VITAMIN D LEVEL ONCE IN A LIFETIME-USE SMARTSET# [id number] Completed 02/10/2023, 11/20/2021, 05/08/2021 GARDASIL-HPV IMMUNIZATION SERIES Aged Out No longer eligible based on [...] A1c goal of less than 7.0% (HCC) Paraesophageal hiatal hernia- Primary Diaphragmatic hernia without mention of obstruction or gangrene Paraesophageal hiatal hernia Diaphragmatic hernia without mention of obstruction or gangrene documented in this encounter Advance Directives Documents on File Type Date Recorded Patient Lead Refiner Expl 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 Question Answer Comments Discussion of Advance Directives occurred with: Patient Care Teams Encephalographer Relationship Specialty Start Date End Date Lana Eden MD [address] [place] [address] PCP - General Internal Medicine 12/04/20 documented as of this encounter
--- OUTSIDE RECORDS SUMMARY | 2024-02-20 11:49 | External Medical Summary ---
Author Name Unknown Address Unknown Organization K09[facility] [place] [address] Laboratory Report Ordering Provider Test Date Status TRACEY BOYD 10/14/2023 13:44:21 Final Observation Date Value Abnormality Reference (Units ) Status BUN 10/14/2023 13:44:21 20 6-20 (mg/dL) Final Creatinine 10/14/2023 13:44:21 0.9 0.6-1.2 (mg/dL) Final Glomerular filtration rate/1.73 sq M.predicted [Volume Rate/Area] in Serum, Plasma or Blood by Creatinine-based formula (CKD-EPI) 10/14/2023 13:44:21 83 >=60 (mL/min) Final eGFR is calculated based on the CKD-EPI 2020 equation Sodium 10/14/2023 13:44:21 143 135-146 (m mol/L) Final Potassium 10/14/2023 13:44:21 3.9 3.5-5.1 (m mol/L) Final Cl 10/14/2023 13:44:21 102 98-107 (mm ol/L) Final CO2 10/14/2023 13:44:21 25 22-32 (mmo l/L) Final Anion gap 10/14/2023 13:44:21 16 Above high normal 7- 15 (mmol/L) Final Glucose 10/14/2023 13:44:21 140 Above high normal 70 -120 (mg/dL) Final Calcium 10/14/2023 13:44:21 9.8 8.4-10.2 ( mg/dL) Final Performing Location [facility] [place] [address]
--- OUTSIDE RECORDS SUMMARY | 2024-02-20 11:49 | External Medical Summary | Summary of Care ---
Author Name Unknown Organization [facility] Address [address] [place] [address] Phone [phone] Care Team Providers Care Champion Of Sustainable Design Name Role Phone Lana Eden MD Primary Care Provider [phone] Reason for Visit * Reason Onset Date Comments Medication Refill 10/14/2023 Encounter Details Date Type Department Care Team (Late st Contact Info) Description 10/14/2023 Refill General Internal Medicine [facility] [address] [place] [address] Lana Eden MD [address] [place] [address] Allergies Active Allergy Reactions Criticality Noted Date Comments Amoxicillin-Pot Clavulanate 02/24/20 19 Codeine High 01/05/2020 Other reaction(s): "I GOT REALLY SICK" Hydrocodone Bit-Homatrop Mbr 017 Levothyroxine Sodium Hives,Rash High 10/01/2010 documented as of this encounter (statuses as of 10/14/2023) Medications Medication Sig Dispensed Refills Start Date [...] rhinitis, unspecified seasonality, unspecified trigger Administer 1 [place] into nostril in the morning and 1 [place] before bedtime. 90 mL 3 04/03/2023 Active [...] hemoglobin A1c goal of less than 7.0% ([facility]) TAKE 1 TABLET IN THE MORNING 90 [...] mouth daily. 90 Tablet 3 10/10/2023 Active dilTIAZem HCl ER Coated Beads 300 MG Oral Capsule Extended Release 24 Hour (Cardizem CD) TAKE 1 CAPSULE DAILY IN THE EVENING 90 Capsule 3 10/14/2023 Active dilTIAZem HCl ER Coated Beads 300 MG Oral Capsule Extended Release 24 Hour (Cardizem CD) TAKE 1 CAPSULE DAILY IN THE EVENING 90 Capsule 3 08/01/2022 Discontinue d(Refill) documented as of this encounter (statuses as of 10/14/2023) Active Problems Problem Noted Date Diagnosed Date Paraesophageal hiatal hernia 10/09/2023 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 [facility] [...] as of this encounter (statuses as of 10/14/2023) Resolved Problems Problem Noted Date Diagnosed Date [...] as of this encounter (statuses as of 10/14/2023) Immunizations Name Administration Dates Next Due COVID-19 [...] cine, Unspecified Formulation 12/19/2021,01/10/2021,12/14/2019,01/10,12/21/2016,01/15/2016,12/28/2015 ,12/28/2014,12/15/2013,12/28/2012,12/13,02/07/2011,01/14/2010,,01/19/2008,02/02/2007 Seasonal Influenza, PF, 6 M & above, [...] encounter Miscellaneous Notes * Telephone Encounter - Kanika Hamlin RPh - 10/14/2023 7:37 PM EDT Signed Prescriptions: Disp Refills dilTIAZem HCl ER Coated Beads 300 MG Oral *90 Cap*3 Sig: TAKE 1 CAPSULE DAILY IN THE EVENINGAuthorizing Provider: Raymond EDEN User: KANIKA HAMLIN documented in this encounter Plan of Treatment Upcoming Encounters Date Type Department Care Team (Latest Contact Info) Description 10/20/2023 11:40 AM EDT Office Visit General Internal Medicine [facility] [address], [place] [address] Lana Eden MD [address] [place] [address] 11/20/2023 2:45 PM EDT Telemedicine General Surgery, [place] [address] [place], [place] [phone] Best Shelley MD [address] [place], [place] [phone] 11/28/2023 11:28 AM EDT Hospital Encounter [facility], OPERATING ROOM [facility] [address] [place] [phone] Christophe Henriquez MD [address] [place] [address] 11/28/2023 11:28 AM EDT - 11/28/2023 4:12 PM EDT Surgery OR [facility], OPERATING ROOM [facility], [facility] [address] [place] [address] Christophe Henriquez MD [address] [place] [address] LAPAROSCOPIC PARAESOPHAGEAL HERNIA REPAIR WO/ MESH 01/06/2024 3:00 PM EDT Office Visit Hematology/Oncolog y [facility] [address] [facility] [place], [place] [address] Pepito Chiang MD [address] [facility] [place] [address] 02/24/2024 1:40 PM EST Office Visit Rheumatology [place] [phone] [facility] [place] [address] Niraj Shukla MD [facility] [employer] [facility] [place] [address] 09/02/2024 2:00 PM EDT Office Visit Cardiology, [facility] [address] [place] [address] Billy Anthony PA-Precious [address] [place] [address] Scheduled Procedures Name Priority [...] DUE TO RESISTANT HTN 08/23/2023 Hepatitis B Vaccine (3 of 3 - 19+ 3-dose series) 10/23/2023 07/18/2023, 04/24/2023 Diabetic Foot Exam 11/06/2023 11/05/2022 (Precious hagen [...] D LEVEL ONCE IN A LIFETIME-USE SMARTSET# [id number] Completed 02/10/2023, 11/20/2021, 05/08/2021 HPV (Gardasil) Vaccine Aged Out No lo nger eligible based on patient's age to complete this topic MENINGOCOCCAL (MENACTRA/MENVEO) Aged Out No longer eligible based on patient's age to complete this topic documented as of this encounter Medical Devices Not on filedocumented as of this encounter Advance Directives Documents on File Type Date Recorded Patient Building Coordinator Expl 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 Question Answer Comments Discussion of Advance Directives occurred with: Patient Care Teams Champion Of Sustainable Design Relationship Specialty Start Date End Date Lana Eden MD [address] [place] [address] PCP - General Internal Medicine 12/04/20 documented as of this encounter
--- OUTSIDE RECORDS SUMMARY | 2024-02-20 11:49 | External Medical Summary | Continuity of Care Document ---
Author Name Unknown Organization [facility] [address] [facility] [address] [id number] Care Team Providers Care Aquatic Director Name Role Phone Lana Eden Primary Care Physician [phone] [facility] [id number] Date(s): 10/13/23 - 10/13/23 [facility] [address] [facility] [address] [phone] Encounter Diagnosis Actinic keratoses(Discharge Diagnosis) - 10/13/23 Seborrheic keratoses(Discharge Diagnosis) - 10/13/23 Multiple nevi(Discharge Diagnosis) - 10/13/23 Inflamed seborrheic keratosis(Discharge Diagnosis) - 10/13/23 Discharge Disposition: Home or Self Care Attending Physician: MD Pickard Sara B Referring Physician: MD Guardado Thomas A Allergies, Adverse Reactions, Alerts Substance Criticality Severity Reaction Reaction Severity Status Synthroid throat swelled hives Active Assessment and Plan Extracted from: Title:Dermatology Office Visit Note Author:Viv allen MD, Sara B Date:10/13/23 1.Actinic keratoses x3. Lesions treated with liquid nitrogen. Patient aware of possibility of infection, hypo or hyperpigmentation or scarring and did elect to proceed. They should inform me of any problems or recurrences post treatment. Care sheet given. 2.Seborrheic keratoses Chronic, within normal limits today 3.Multiple nevi Chronic, within normal limits today 4.Inflamed seborrheic keratosis x1. Lesions treated with liquid nitrogen. Patient aware of possibility of infection, hypo or hyperpigmentation or scarring and did elect to proceed. They should inform me of any problems or recurrences post treatment. Care sheet given. Medications apixaban 5 mg oral tablet Start: 10/09/21 1:24:00 PM EDT, 1 tab, PO, Daily Start Date: 10/09/21 Status: Ordered atorvastatin 20 mg oral tablet Start: 10/09/21 1:23:00 PM EDT, 1 tab, PO, Daily Start Date: 10/09/21 Status: Ordered azelastine 205.5 mcg/inh (0.15%) nasal spray Start: 10/09/21 1:22:00 PM EDT, 2 spray, each nostril, Daily, PRN: allergy symptoms Start Date: 10/09/21 Status: Ordered calcium (as carbonate)-vitamin D 600 mg-5 mcg (200 intl units) oral tablet Start: 10/09/21 1:25:00 PM EDT, 1 tab, PO, M-W- Start Date: 10/09/21 Status: Ordered DilTIAZem (Eqv-Cardizem CD) 300 mg/24 hours oral capsule, extended release Start: 10/09/21 1:28:00 PM EDT, 1 cap, PO, Daily Start Date: 10/09/21 Status: Ordered irbesartan 150 mg oral tablet Start: 10/09/21 1:23:00 PM EDT, 2 tab, PO, Daily Start Date: 10/09/21 Status: Ordered Iron Chews Start: 10/13/23 1:32:00 PM EDT Start Date: 10/13/23 Status: Ordered MetFORMIN (Eqv-Glucophage XR) 500 mg oral tablet, extended release Start: 10/09/21 1:22:00 PM EDT, 1 tab, PO, Daily Start Date: 10/09/21 Status: Ordered predniSONE 10 mg oral tablet Start: 10/09/21 1:22:00 PM EDT, 1 tab, PO, Daily Start Date: 10/09/21 Status: Ordered predniSONE 2.5 mg oral tablet Start: 10/09/21 1:22:00 PM EDT, 1 tab, PO, Daily Start Date: 10/09/21 Status: Ordered Vitamin B12 50 mcg oral tablet Start: 10/13/23 1:33:00 PM EDT, 1 tab, PO, Daily Start Date: 10/13/23 Status: Ordered Vitamin D3 Start: 10/10/22 1:04:00 PM EDT Start Date: 10/10/22 Status: Ordered Vitamin K2 100 mcg oral tablet Start: 10/09/21 1:26:00 PM EDT, 1 tab, PO, Daily Start Date: 10/09/21 Status: Ordered Zinc Start: 10/09/21 1:26:00 PM EDT, 1 tab, PO, S Start Date: 10/09/21 Status: Ordered Problem List Condition Confirmation Course Effective Dates Status Health St atus Informant Multiple nevi Confirmed Active DM (diabetes mellitus) Confirmed Active Elevated cholesterol Confirmed Active HTN (hypertension) Confirmed Active Inflamed seborrheic keratosis Confirmed Active Actinic keratoses Confirmed Active PE (pulmonary thromboembolism) Confirmed Active Seborrheic keratoses Confirmed Active Diagnosis Diagnosis Type Effective Dates Health Status Clinical Service Informant Actinic keratoses Discharge Diagnosis 10/13/23 Seborrheic keratoses Discharge Diagnosis 10/13/23 Multiple nevi Discharge Diagnosis 10/13/23 Inflamed seborrheic keratosis Discharge Diagnosis 10/13/23 Procedures Procedure Date Related Diagnosis Body Site Status Cataract Completed Social History Social History Type Response Smoking Status Former Smoker, quit > 1 yr Sex Male Dermatology Outpatient Note * MD Melly, Kate B: PERFORM Event Display: Dermatology Outpt Note Authored Date: [id number] Chief Complaint Yearly skin check: left cheek scaley area. right forearm mole. History of Present Illness The patient is a pleasant 83-year-old male new to me today. Usually follows with Dr. Guardado. He has a history of actinic keratoses in the past. He usually follows once a year. Physical Exam Gen: Well appearing patient, no acute distress. Alert and oriented x3. Good mood. Waist up skin exam completed per pt request of face, ears, scalp, hair, lips, neck, chest, back, abdomen, upper extremitites bilaterally including hands and fingersplus legs from upper thighs to ankles. He declined further exam. He has 3 actinic keratoses he points out is chronically scaly areas on his left cheekhis left upper forehead and his leftlateral cheek. He also points outan irritated seborrheic keratosis on his left forearm. Otherwise he has numerous seborrheic keratosesand scattered less than 6mm in diameter well circumscribed round brown macular nevi within normal limits under dermoscopy. Assessment/Plan 1.Actinic keratoses x3. Lesions treated with liquid nitrogen. Patient aware of possibility of infection, hypoor hyperpigmentation or scarring and did elect to proceed. They should inform me of any problems or recurrences post treatment. Care sheet given. 2.Seborrheic keratoses Chronic, within normal limits today 3.Multiple nevi Chronic, within normal limits today 4.Inflamed seborrheic keratosis x1. Lesions treated with liquid nitrogen. Patient aware of possibility of infection, hypoor hyperpigmentation or scarring and did elect to proceed. They should inform me of any problems or recurrences post treatment. Care sheet given. Problem List/Past Medical History Ongoing Actinic keratoses DM (diabetes mellitus) Elevated cholesterol HTN (hypertension) Inflamed seborrheic keratosis Multiple nevi PE (pulmonary thromboembolism) Seborrheic keratoses Procedure/Surgical History Cataract Medications apixaban(apixaban 5 mg oral tablet), 5 mg= 1 tab, PO, Daily atorvastatin(atorvastatin 20 mg oral tablet), 20 mg= 1 tab, PO, Daily azelastine nasal(azelastine 205.5 mcg/inh (0.15%) nasal spray), 2 spray, each nostril, Daily, PRN calcium-vitamin D(calcium (as carbonate)-vitamin D 600 mg-5 mcg (200 intl units) oral tablet), 1 tab, PO carbonyl iron(Iron Chews) cholecalciferol(Vitamin D3) cyanocobalamin(Vitamin B12 50 mcg oral tablet), 50 mcg= 1 tab, PO, Daily dilTIAZem(DilTIAZem (Eqv-Cardizem CD) 300 mg/24 hours oral capsule, extended release), 300 mg= 1 cap, PO, Daily irbesartan(irbesartan 150 mg oral tablet), 300 mg= 2 tab, PO, Daily menaquinone(Vitamin K2 100 mcg oral tablet), 100 mcg= 1 tab, PO, Daily metFORMIN(MetFORMIN (Eqv-Glucophage XR) 500 mg oral tablet, extended release), 500 mg= 1 tab, PO, Daily predniSONE(predniSONE 10 mg oral tablet), 10 mg= 1 tab, PO, Daily predniSONE(predniSONE 2.5 mg oral tablet), 2.5 mg= 1 tab, PO, Daily zinc sulfate(Zinc), 1 tab, PO Allergies Synthroidthroat khang villanueva Social History Smoking Status Former Smoker, quit > 1 yr Electronic Signature on File Electronically Reviewed/Signed by: Kate Pickard MD Author Signature Dt/Tm:10/13/2023 01:49 PM Department of Dermatology [facility] Patient Care team information Care Team Personnel Name: MD [facility] Position: Referring DIRECT Member Role: Primary Care Provider Address: Address: [address] [place] [address]
--- OUTSIDE RECORDS SUMMARY | 2024-02-20 11:49 | External Medical Summary | Summary of Care ---
Author Name Unknown Organization [facility] Address [address] [place] [address] Phone [phone] Care Team Providers Care Check Clerk Name Role Phone Lana Eden MD Primary Care Provider Reason for Visit * Reason Comments Outpatient Testing Encounter Details Date Type Department Care Team (Late st Contact Info) Description 10/14/2023 1:40 PM EDT Laboratory Laboratory [facility] [address] [place] [id number] [facility] Lab Scene [address] [place] [address] Hypokalemia Allergies Active Allergy Reactions Criticality Noted [...] evening. Active predniSONE 10 MG Oral Tablet (Deltasone)Indicati ons:Polymyalgia rheumatica (HCC) Take 1 Tablet by mouth in the morning. 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 90 Tablet 3 11/25/2022 Active Additional Information Patient not taking.Reported on 09/01/2023 Zinc 22.5 MG Oral Tablet Take by mouth. Active Azelastine HCl 0.1 % Nasal Solution (Astelin)Indication s:Allergic rhinitis, unspecified seasonality, unspecified trigger Administer 1 [place] into nostril in the morning and 1 [place] before bedtime. 90 mL 3 04/03/2023 Active [...] mouth daily. 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 [...] AM EDT Office Visit General Internal Medicine [facility] [address] [place] [address] Lana Eden MD [address] [place] [address] 11/20/2023 2:45 PM EDT Telemedicine General Surgery, [place] [address] [place], [place] [phone] Best Shelley MD [address], [place] [id number] 11/28/2023 11:28 AM EDT Hospital Encounter OR [facility], OPERATING ROOM [facility] [place] [address] [place] [address] Christophe Henriquez MD [address] [place] [address] 11/28/2023 11:28 AM EDT - 11/28/2023 4:12 PM EDT Surgery [place] [facility] [place] [place] [address] [place] [address] Christophe Henriquez MD [address] [place] [address] LAPAROSCOPIC PARAESOPHAGEAL HERNIA REPAIR WO/ MESH 01/06/2024 3:00 PM EDT Office Visit Hematology/Oncolog y [facility] [address] [place] [id number] Pepito Chiang MD [address] [place] [address] 02/24/2024 1:40 PM EST Office Visit Rheumatology [facility] [address] [place] [address] Niraj Shukla MD [address] [facility] [place] [address] 09/02/2024 2:00 PM EDT Office Visit Cardiology, [facility] [address] [place] [address] Billy Anthony PA-C [address] [place] [address] Pending Results Name Type Priority Associated Diagnoses Date /Time BASIC METABOLIC PANEL Lab Routine Hypokalemia 10/14/2023 1:44 PM EDT Scheduled Procedures Name Priority Associated [...] 04/24/2023 Diabetic Foot Exam 11/06/2023 11/05/2022 (C janaye Completed), 08/09/2021 Influenza Vaccine (FLU shot) (#1) 2023 12/27/2022, 12/19/2021, 01/10/2021, Additional history exists Depression Screening 12/28/2023 12/27/2022 DTaP,Tdap,and Td Vaccines (3 - Td or Tdap) 12/30/2023 12/29/2013, 06/12/2005 HbA1c 04/10/2024 10/10/2023, 07/13, 04/24/2023, Additional history exists DXA Scan 05/29/2024 05/29/2022 Albumin/Creatinine Ratio 10/09/2024 024, 12/13/2022, 11/13/2022, Additional history exists GFR 10/09/2024 10/10/2023, 0411/2023, 08/09/2023, Additional history exists Pneumococcal Vaccine: 65+ Years Completed 05/20/2017, 11/08/2015 Zoster Vaccines Completed 08/18/2019, 04/16, 06/12/2011 VITAMIN D LEVEL ONCE IN A LIFETIME-USE SMARTSET# 86559 Completed 02/10/2023, 11/20/2021, 05/08/2021 GARDASIL-HPV IMMUNIZATION SERIES [...] Documents on File Type Date Recorded Patient Behavior Therapist Expl 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 Question Answer Comments Discussion of Advance Directives occurred with: Patient Care Teams Check Clerk Relationship Specialty Start Date End Date Lana Eden MD [address] [place] [address] PCP - General Internal Medicine 12/04/20 documented as of this encounter
--- OUTSIDE RECORDS SUMMARY | 2024-02-20 11:49 | External Medical Summary | Summary of Care ---
Author Name Unknown Organization [facility] Address [address] [place] [address] Phone [phone] Care Team Providers Care Hvac Services Professional Name Role Phone Lana Eden MD Primary Care Provider [phone] Reason for Visit * Reason Onset Date Comments Test Results 10/10/2023 Encounter Details Date Type Department Care Team (Late st Contact Info) Description 10/10/2023 Telephone Cardiology, [facility] [address] [facility] [place] [address] Billy Anthony PAShiraC [address] [place] [address] Test Results Allergies Active Allergy Reactions Criticality Noted Date Comments Amoxicillin-Pot Clavulanate 02/24/20 19 Codeine High 01/05/2020 Other reaction(s): "I GOT REALLY SICK" Hydrocodone Bit-Homatrop Mbr 017 Levothyroxine Sodium Hives,Rash High 10/01/2010 documented as of this encounter (statuses as of 10/15/2023) Medications Medication Sig Dispensed Refills Start Date [...] rhinitis, unspecified seasonality, unspecified trigger Administer 1 [place] into nostril in the morning and 1 [place] before bedtime. 90 mL 3 04/03/2023 Active [...] IN THE EVENING 90 Capsule 3 08/01/2022 4 Discontinue d(Refill) Potassium Chloride ER 10 MEQ Oral Tablet Extended ReleaseIndications :Hypokalemia Take 1 Tablet by mouth in the morning. 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 Lab order placed and med list updated. The patient states he understood. * Telephone Encounter - Devante Stephen RN - 10/10/2023 1:47 PM EDT ----- Message from Billy Anthony sent at 10/10/2023 1:20 PM EDT ----- Potassium is low. Recommend an additional 40 mEq of potassium chloride now then increase daily doseto 20 mEq/day. Repeat potassium level early next week. documented in this encounter Plan of Treatment Upcoming Encounters Date Type Department Care Team (Latest Contact Info) Description 10/20/2023 11:40 AM EDT Office Visit General Internal [facility] [address] [place] [address] Lana Eden MD [address] [facility] [place], [place] [address] 11/07/2023 1:30 PM EDT Office Visit General [facility] [place] [address] [place] [address] Cristiane Enriquez PA-C [address] [place] [address] 11/07/2023 2:15 PM EDT Pre-Admission Testing [facility], [place] [address] [place] [address] [facility] [address] [place] [address] 11/20/2023 2:45 PM EDT Telemedicine General Surgery, [place] [address] [place] [address] Best Shelley MD [address] [place] [address] 11/28/2023 11:28 AM EDT Hospital Encounter OR [facility] [place], OPERATING ROOM [facility] [place] [place] [address] [place] [phone] Christophe Henriquez MD [address] [place] [address] 11/28/2023 11:28 AM EDT - 11/28/2023 4:12 PM EDT Surgery OR [facility] [place], OPERATING ROOM [facility] [place] [place] [place] [address] Christophe Henriquez MD [address] [place], [place] [phone] LAPAROSCOPIC PARAESOPHAGEAL HERNIA REPAIR WO/ MESH 01/06/2024 3:00 PM EDT Office Visit Hematology/Oncolo gy [facility] [address] [place] [phone] Pepito Chiang MD [address] [place] [address] 02/24/2024 1:40 PM EST Office Visit Rheumatology [facility] [address] [facility] [place], [place] [address] Niraj Shukla MD [address] [place] [address] 09/02/2024 2:00 PM EDT Office Visit Cardiology, [facility] [address] [place] [phone] Billy Anthony PA-C [address] [place] [address] Scheduled Procedures Name Priority Associated Diagnoses Date/Ti [...] D LEVEL ONCE IN A LIFETIME-USE SMARTSET# [id number] Completed 02/10/2023, 11/20/2021, 05/08/2021 HPV (Gardasil) Vaccine Aged Out No lo nger eligible based on patient's age to complete this topic MENINGOCOCCAL (MENACTRA/MENVEO) Aged Out No longer eligible based on patient's age to complete this topic documented as of this encounter Medical Devices Not on filedocumented as of this encounter Results * (ABNORMAL) BASIC METABOLIC PANEL (10/14/2023 1:44 PM EDT) BUN 20 6 - 20 mg/dL 10/14/2023 3:25 PM EDT [facility] Creatinine 0.9 0.6 - 1.2 mg/dL 10/14/2023 3:25 PM EDT [facility] Estimated Glomerular Filtration Rate 83 >=60 mL/min 10/14/2023 3:25 PM EDT [facility] Comment:eGFR is calculated b ased on the CKD-EPI 2020 equation Sodium 143 135 - 146 mmol/L 10/14/2023 3:25 PM EDT [facility] 56 Potassium 3.9 3.5 - 5.1 mmol/L 10/14/2023 3:25 PM EDT [facility] 56- Chloride 102 98 - 107 mmol/L 10/14/2023 3:25 PM EDT [facility] 56- CO2 25 22 - 32 mmol/L 10/14/2023 3:25 PM EDT [place] [address]- Anion Gap 16(H) 7 - 15 mmol/L 10/14/2023 3:25 PM EDT [facility] 56- Glucose 140(H) 70 - 120 mg/dL 10/14/2023 3:25 PM EDT [place] [address] Calcium 9.8 8.4 - 10.2 mg/dL 10/14/2023 3:25 PM EDT [facility] 56 Blood Venous blood specimen / Unknown Venipuncture / Unknown 10/14/2023 1:44 PM EDT 10/14/2023 1:44 PM EDT Billy Jovana Raj [facility] B[facility] ORDERABLE S [address] [facility] [place] [address] documented in this encounter Visit Diagnoses Diagnosis Paraesophageal hiatal hernia- Primary Diaphragmatic hernia without mention of obstruction or gangrene Hypokalemia- Primary Hypopotassemia Paraesophageal hiatal hernia Diaphragmatic hernia without mention of obstruction or gangrene documented in this encounter Advance Directives Documents on File Type Date Recorded Patient Medical Imaging Technologist Expl 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 Question Answer Comments Discussion of Advance Directives occurred with: Patient Care Teams Hvac Services Professional Relationship Specialty Start Date End Date Lana Eden MD [address] [facility] [place] [address] PCP - General Internal Medicine 12/04/20 documented as of this encounter
--- OUTSIDE RECORDS SUMMARY | 2024-02-20 11:49 | External Medical Summary | Summary of Care ---
Author Name Unknown Organization [facility] Address [address] [place] [address] Phone [phone] Care Team Providers Care Dye House Hand Name Role Phone Lana Eden MD Primary Care Provider [phone] Reason for Visit * Reason Onset Date Comments Pre Op Discussion 07/15/2023 Encounter Details Date Type Department Care Team (Late st Contact Info) Description 07/15/2023 Telephone OR [facility], Operating Room [facility] [address] [place] [address] Chet Bhagat DO [address] [place] [address] Pre Op Discussion Allergies Active Allergy Reactions Criticality Noted Date [...] rhinitis, unspecified seasonality, unspecified trigger Administer 1 [place] into nostril in the morning and 1 [place] before bedtime. 90 mL 3 04/03/2023 Active [...] hemoglobin A1c goal of less than 7.0% ([facility]) TAKE 1 TABLET IN THE MORNING 90 Tablet 1 06/17/2023 Active Metoprolol Succinate ER 25 MG Oral Tablet Extended Release 24 Hour (toPROL XL) Take 2 Tablets by mouth in the morning. 180 Tablet 2 07/07/2023 Active Risedronate Sodium 150 MG Oral Tablet (Actonel) TAKE 1 TABLET EVERY 30 DAYS 3 Tablet 1 01/24/2023 4 Discontinue d(Patient preference/ discontinua tion) Potassium Chloride ER 10 MEQ Oral Tablet Extended ReleaseIndications :Hypokalemia Take 1 Tablet by mouth in the morning. 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 Left message on machine /request return call /sent My G/ documented in this encounter Plan of Treatment Upcoming Encounters Date Type Department Care Team (Latest Contact Info) Description 10/20/2023 11:40 AM EDT Office Visit General Internal Medicine [facility] [address] [place] [address] Lana Eden MD 200 [facility] [place] [address] 11/20/2023 2:45 PM EDT [facility] [address], [place] [phone] Best Shelley MD [address] [place] [address] 11/28/2023 11:28 AM EDT Hospital Encounter [place] [facility], OPERATING ROOM [facility], [place] [address] [place] [phone] Christophe Henriquez MD [address] [place] [address] 11/28/2023 11:28 AM EDT - 11/28/2023 4:12 PM EDT Surgery [place] [facility] [address] [place] [phone] Christophe Henriquez MD [address], [place] [phone] LAPAROSCOPIC PARAESOPHAGEAL HERNIA REPAIR WO/ MESH 01/06/2024 3:00 PM EDT Office Visit Hematology/Oncolog y [facility] 200 [facility] [address] [place] [phone] Pepito Chiang MD [address] [place] [address] 02/24/2024 1:40 PM EST Office Visit Rheumatology [facility] [address] [facility] [place], [place] [address] Niraj Shukla MD [address] [facility] [place] [address] 09/02/2024 2:00 PM EDT Office Visit Cardiology, [facility] [address] [place] [address] Billy Anthony PA-C [address] [place] [address] Scheduled Procedures Name Priority Associated Diagnoses Date/Ti [...] 04/24/2023 Diabetic Foot Exam 11/06/2023 11/05/2022 (C ourse [...] D LEVEL ONCE IN A LIFETIME-USE SMARTSET# 35036 Completed 02/10/2023, 11/20/2021, 05/08/2021 HPV (Gardasil) Vaccine Aged Out No lo nger eligible based on patient's age to complete this topic MENINGOCOCCAL (MENACTRA/MENVEO) Aged Out No longer eligible based on patient's age to complete this topic documented as of this encounter Medical Devices Not on filedocumented as of this encounter Advance Directives Documents on File Type Date Recorded 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 Question Answer Comments Discussion of Advance Directives occurred with: Patient Care Teams Dye House Hand Relationship Specialty Start Date End Date Lana Eden MD 200 [facility] [place] [address] PCP - General Internal Medicine 12/04/20 documented as of this encounter
--- OUTSIDE RECORDS SUMMARY | 2024-02-20 11:49 | External Medical Summary | Summary of Care ---
Author Name Unknown Organization [facility] Address [address] [place] [address] Phone [phone] Care Team Providers Care Personnel Officer Name Role Phone Lana Eden MD Primary Care Provider [phone] Reason for Visit * Reason Onset Date Comments Test Results 10/15/2023 Encounter Details Date Type Department Care Team (Late st Contact Info) Description 10/15/2023 Telephone Cardiology, [facility] [address] [facility] [place] [address] Billy Anthony PA-C [address] [place] [address] Test Results Allergies Active Allergy Reactions Criticality [...] rhinitis, unspecified seasonality, unspecified trigger Administer 1 [place] into nostril in the morning and 1 [place] before bedtime. 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 shelter current use of systemic steroids 07/30 Steroid-induced [...] encounter Miscellaneous Notes * Telephone Encounter - Calli Malave CMA - 10/15/2023 9:54 AM EDT My g sent * Telephone Encounter - Calli Malave CMA - 10/15/2023 9:52 AM EDT ----- Message from Billy Anthony sent at 10/14/2023 5:28 PM EDT ----- ok documented in this encounter Plan of Treatment Upcoming Encounters Date Type Department Care Team (Latest Contact Info) Description 10/20/2023 11:40 AM EDT Office Visit General Internal Medicine [facility] [place] [address] [place], [place] [address] Lana Eden MD [address] [facility] [place] [address] 11/07/2023 1:30 PM EDT Office Visit General Surgery, [place] [address] [facility] [place] [phone] Cristiane Enriquez PA-C [address] [place] [address] 11/07/2023 2:15 PM EDT Pre-Admission Testing Pre Surgery [place], [place] [address] [place] [address] [facility] [address] [place], [place] [phone] 11/20/2023 2:45 PM EDT Telemedicine General Surgery, [place] [address] [place], [place] [phone] Best Shelley MD [address] [place], [place] [address] 11/28/2023 11:28 AM EDT Hospital Encounter OR [facility], OPERATING ROOM [facility] [address] [place] [phone] Christophe Henriquez MD [address] [place], [place] [phone] 11/28/2023 11:28 AM EDT - 11/28/2023 4:12 PM EDT Surgery OR [facility], OPERATING ROOM [facility], [facility] [address] [place] [phone] Christophe Henriquez MD [address] [place], [place] [phone] LAPAROSCOPIC PARAESOPHAGEAL HERNIA REPAIR WO/ MESH 01/06/2024 3:00 PM EDT Office Visit Hematology/Oncolo gy [facility] [place] [address] [place] [address] Pepito Chiang MD [address] [place] [phone] 02/24/2024 1:40 PM EST Office Visit Rheumatology [place] [phone] [facility] [place] [address] Niraj Shukla MD [address] [facility] [place] [address] 09/02/2024 2:00 PM EDT Office Visit Cardiology, [facility] [address] [place] [address] Billy Anthony PA-C [address] [place] [address] Scheduled Procedures Name Priority Associated Diagnoses Date/Ti [...] D LEVEL ONCE IN A LIFETIME-USE SMARTSET# [id number] Completed 02/10/2023, 11/20/2021, 05/08/2021 HPV (Gardasil) Vaccine Aged Out No lo nger eligible based on patient's age to complete this topic MENINGOCOCCAL (MENACTRA/MENVEO) Aged Out No longer eligible based on patient's age to complete this topic documented as of this encounter Medical Devices Not on filedocumented as of this encounter Advance Directives Documents on File Type Date Recorded Patient Sap Director Expl 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 Question Answer Comments Discussion of Advance Directives occurred with: Patient Care Teams Personnel Officer Relationship Specialty Start Date End Date Lana Eden MD 200 [facility] [place] [address] PCP - General Internal Medicine 12/04/20 documented as of this encounter
--- OUTSIDE RECORDS SUMMARY | 2024-02-20 11:50 | External Medical Summary | Summary of Care ---
Author Name Unknown Organization [facility] Address [address] [place] [address] Phone [phone] Care Team Providers Care Lacing Presser Name Role Phone Lana Eden MD Primary Care Provider [phone] Reason for Visit * Reason Comments Outpatient Testing Encounter Details Date Type Department Care Team (Late st Contact Info) Description 10/10/2023 8:30 AM EDT [facility] [address] [place] [phone] [place], Lab Scenery [address] [place] [address] [email or web address] Other*[id number]; HTN, goal below 140/90; Hyperlipidemia with target LDL less than 100; Type 2 diabetes mellitus with hemoglobin A1c goal of less than 7.0% (HCC); Hypokalemia Allergies Active Allergy Reactions Criticality Noted Date Comments Amoxicillin-Pot Clavulanate 02/24/20 19 Codeine High 01/05/2020 Other reaction(s): "I GOT REALLY SICK" Hydrocodone Bit-Homatrop Mbr 017 Levothyroxine Sodium Hives,Rash High 10/01/2010 documented as of this encounter (statuses as of 10/10/2023) Medications Medication Sig Dispensed Refills Start Date [...] MG Oral Tablet Take by mouth. Active Potassium Chloride ER 10 MEQ Oral Tablet Extended ReleaseIndications: Hypokalemia Take 1 Tablet by mouth in the morning. 270 Tablet 3 01/23/2023 Active Azelastine HCl 0.1 % Nasal Solution (Astelin)Indication s:Allergic rhinitis, unspecified seasonality, unspecified trigger Administer 1 [place] into nostril in the morning and 1 [place] before bedtime. 90 mL 3 04/03/2023 Active [...] Capsule (Acetylcysteine) Take by mouth. 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 [...] as of this encounter (statuses as of 10/10/2023) Resolved Problems Problem Noted Date Diagnosed Date [...] as of this encounter (statuses as of 10/10/2023) Immunizations Name Administration Dates Next Due COVID-19 [...] AM EDT Office Visit General Internal Medicine [facility] [address] [place] [address] Lana Eden MD 200 [facility] [place] [address] 11/20/2023 2:45 PM EDT [facility] [address] [place], [place] [phone] Best Shelley MD [address] [place], [place] [phone] 11/28/2023 Hospital Encounter OR [facility], [facility] [address] [place] [address] Christophe Henriquez MD [address] [place], [place] [phone] 01/06/2024 3:00 PM EDT Office Visit Hematology/Oncology [facility] 200 [facility] [address] [place] [address] Pepito Chiang MD [address] [place] [address] 02/24/2024 1:40 PM EST Office Visit Rheumatology [facility] [address] [facility] [place], [place] [address] Niraj Shukla MD [address] [employer] [facility] [place], [place] [address] 09/02/2024 2:00 PM EDT Office Visit Cardiology, [facility] [address] [place] [address] Billy Anthony PA-C [address] [place] [address] Pending Results Name Type Priority Associated Diagnoses Date /Time MYCODE SUBSEQUENT ADULT Lab Routine [employer] Other*[id number] 10/10/2023 8:21 AM EDT COMPREHENSIVE METABOLIC PANEL Lab Routine HTN, goal below 140/90 Hyperlipidemia with target LDL less than 100 10/10/2023 8:21 AM EDT HEMOGLOBIN A1C Lab Routine Type 2 diabetes mellitus with hemoglobin A1c goal of less than 7.0% ([facility]) 10/10/2023 8:21 AM EDT LIPID PANEL WITH DIRECT LDL IF TG IS HIGH Lab Routine Hyperlipidemia with target LDL less than 100 10/10/2023 8:21 AM EDT MYCODE SST1 Lab Routine [employer] Other*[id number] 10/10/2023 8:21 AM EDT MYCODE SST2 Lab Routine [employer] Other*[id number] 10/10/2023 8:21 AM EDT Scheduled Procedures Name Priority Associated Diagnoses Date/Ti me LAPAROSCOPIC PARAESOPHAGEAL HERNIA REPAIR WO/ MESH Paraesophageal hiatal hernia LAPAROSCOPIC PARAESOPHAGEAL HERNIA REPAIR W/MESH Paraesophageal hiatal hernia ESOPHAGOGASTRODUODENOSCOPY ( EGD), FLEXIBLE, TRANSORAL, DIAGNOSTIC Paraesophageal hiatal hernia COLONOSCOPY FLEXIBLE PROXIMAL DIAGNOSTIC Recall History of colonic polyps Health [...] Exam 11/06/2023 11/05/2022 (C ourse Completed), 08/09/2021 Albumin/Creatinine Ratio 12/14/2023 023, 11/13/2022, 11/20/2021 Depression Screening 12/28/2023 12/27/2022 DTaP,Tdap,and Td Vaccines (3 - Td or Tdap) 12/30/2023 12/29/2013, 06/12/2005 HbA1c 01/27/2024 07/28/2023, 04/14, 12/13/2022, Additional history exists DXA Scan 05/29/2024 05/29/2022 GFR 08/09/2024 08/10/2023, 07/14, 08/08/2023, Additional history exists Pneumococcal Vaccine: 65+ Years Completed 05/20/2017, 11/08/2015 Zoster Vaccines Completed 08/18/2019, 04/16, 06/12/2011 Influenza Vaccine (FLU shot) Completed , 12/19/2021, 01/10/2021, Additional history exists VITAMIN D LEVEL ONCE IN A LIFETIME-USE SMARTSET# [id number] Completed 02/10/2023, 11/20/2021, 05/08/2021 GARDASIL-HPV IMMUNIZATION SERIES [...] hernia without mention of obstruction or gangrene [employer] Other*[id number] HTN, goal below 140/90 Unspecified essential hypertension Hyperlipidemia with target LDL less than 100 Other and unspecified hyperlipidemia Type 2 diabetes mellitus with hemoglobin A1c goal of less than 7.0% (HCC) Hypokalemia Hypopotassemia documented in this encounter Advance Directives Documents on File Type Date Recorded Patient Assayer Helper Expl 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 Question Answer Comments Discussion of Advance Directives occurred with: Patient Care Teams Lacing Presser Relationship Specialty Start Date End Date Lana Eden MD 200 [facility] [place] [address] PCP - General Internal Medicine 12/04/20 documented as of this encounter
--- OUTSIDE RECORDS SUMMARY | 2024-02-20 11:50 | External Medical Summary ---
Author Name Unknown Address Unknown Organization [id number]:LABORATORY [facility] - [address] [facility] [address] Laboratory Report Ordering Provider Test Date Status JOSE RAFAEL BONILLA 10/10/2023 08:21:18 Final Observation Date Value Abnormality Reference (Units ) Status HbA1C 10/10/2023 08:21:18 6.9 Above high normal 4. 0-5.6 (%) Final The use of HbA1c to monitor glycemic status is based on normal hemoglobin and HbA composition. This test should not be used in patients with abnormal hemoglobin that affects the half life of the red blood cell or the in vivo glycation rates. Glucose, estimated average 10/10/2023 08:21:18 151 Above high normal <126 (mg/dL) Hi david Performing Location LABORATORY [facility] - [address] [facility] [address]
--- OUTSIDE RECORDS SUMMARY | 2024-02-20 11:50 | External Medical Summary | Summary of Care ---
Author Name Unknown Organization [facility] Address [address] [place] [address] Phone [phone] Care Team Providers Care Tubing Tester Name Role Phone Lana Eden MD Primary Care Provider [phone] Reason for Visit * Reason Comments Outpatient Testing Encounter Details Date Type Department Care Team (Late st Contact Info) Description 10/10/2023 12:10 PM EDT Laboratory Laboratory Scenery [facility] [address] [place] [phone] [place], Lab Scenery [address] [place] [address] Type 2 diabetes mellitus with hemoglobin A1c goal of less than 7.0% ([facility]) Allergies Active Allergy Reactions Criticality Noted Date [...] rhinitis, unspecified seasonality, unspecified trigger Administer 1 [place] into nostril in the morning and 1 [place] before bedtime. 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 current use of systemic steroids 07/30 Steroid-induced [...] AM EDT Office Visit General Internal Medicine [facility] [address] [place] [address] Lana Eden MD [address] [facility] [place] [address] 11/20/2023 2:45 PM EDT [facility] [address] [place], [place] [phone] Best Shelley MD [address] [place] [address] 11/28/2023 Hospital Encounter [facility] [address] [place] [address] Christophe Henriquez MD [address] [place] [address] 01/06/2024 3:00 PM EDT Office Visit Hematology/Oncology [facility] [address] [place] [phone] Pepito Chiang MD [address] [place] [address] 02/24/2024 1:40 PM EST Office Visit Rheumatology [facility] [address] [facility] [place] [address] Niraj Shukla MD [address] [facility] [place] [address] 09/02/2024 2:00 PM EDT Office Visit Cardiology, [facility] [address] [place] [address] Billy Anthony PA-C [address] [place] [address] Pending Results Name Type Priority Associated Diagnoses Date /Time ALBUMIN / CREATININE RATIO, URINE Lab Routine Type 2 diabetes mellitus with hemoglobin A1c goal of less than 7.0% ([facility]) 10/10/2023 12:10 PM EDT Scheduled Procedures Name Priority Associated Diagnoses Date/Ti mi LAPAROSCOPIC PARAESOPHAGEAL HERNIA REPAIR WO/ MESH Paraesophageal [...] Exam 11/06/2023 11/05/2022 (C janaye Completed), 08/09/2021 Albumin/Creatinine Ratio 12/14/2023 023, 11/13/2022, 11/20/2021 Depression Screening 12/28/2023 12/27/2022 DTaP,Tdap,and Td Vaccines (3 - Td or Tdap) 12/30/2023 12/29/2013, 06/12/2005 HbA1c 01/27/2024 07/28/2023, 04/14, 12/13/2022, Additional history exists DXA Scan 05/29/2024 05/29/2022 GFR 10/09/2024 10/10/2023, 07/14, 08/09/2023, Additional history exists Pneumococcal Vaccine: 65+ Years Completed 05/20/2017, 11/08/2015 Zoster Vaccines Completed 08/18/2019, 04/16, 06/12/2011 Influenza Vaccine (FLU shot) Completed , 12/19/2021, 01/10/2021, Additional history exists VITAMIN D LEVEL ONCE IN A LIFETIME-USE SMARTSET# [id number] Completed 02/10/2023, 11/20/2021, 05/08/2021 GARDASIL-HPV IMMUNIZATION SERIES [...] hernia without mention of obstruction or gangrene Type 2 diabetes mellitus with hemoglobin A1c goal of less than 7.0% ([facility]) documented in this encounter Advance Directives Documents on File Type Date Recorded Patient Gel Coat Sprayer Expl 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 Question Answer Comments Discussion of Advance Directives occurred with: Patient Care Teams Tubing Tester Relationship Specialty Start Date End Date Lana Eden MD [address] [place] [address] PCP - General Internal Medicine 12/04/20 documented as of this encounter
--- OUTSIDE RECORDS SUMMARY | 2024-02-20 11:50 | External Medical Summary ---
Author Name Unknown Address Unknown Organization [id number]:LABORATORY [facility] - [address] [place] [address] Laboratory Report Ordering Provider Test Date Status JOSE RAFAEL BONILLA 10/10/2023 08:21:18 Final Observation Date Value Abnormality Reference (Units ) Status LDL, (direct) 10/10/2023 08:21:18 67 <=129 (mg/dL) Final LDL Cholesterol Reference Ra nges (mg/dL):
<70 Target level for high risk ASCVD patient
<100 Optimal for general population
100-129 Near optimal for general population
130-159 Borderline high
160-189 High
>=190 Very high Performing Location LABORATORY [facility] - [address] [place] [address]
--- OUTSIDE RECORDS SUMMARY | 2024-02-20 11:50 | External Medical Summary ---
Author Name Unknown Address Unknown Organization [id number]:[facility] [place] [address] [place] [address] Laboratory Report Ordering Provider Test Date Status INGRID KENT 10/10/2023 08:21:18 Final Observation Date Value Abnormality Reference (Units ) Status MYCODE SPECIMEN-SST 10/10/2023 08:21:18 Freezing of extracted DNA, whole blood and/or serum. Final Performing Location [facility] [address] [facility] [address]
--- OUTSIDE RECORDS SUMMARY | 2024-02-20 11:50 | External Medical Summary ---
Author Name Unknown Address Unknown Organization K01:LABORATORY [facility] - [address] [place] [address] Laboratory Report Ordering Provider Test Date Status INGRID KENT 10/10/2023 08:21:18 Final Observation Date Value Abnormality Reference (Units ) Status MYCODE SPECIMEN-SST 10/10/2023 08:21:18 Freezing of extracted DNA, whole blood and/or serum. Final Performing Location LAB[facility]ATORY [facility] - [address] [facility] [address]
--- OUTSIDE RECORDS SUMMARY | 2024-02-20 11:50 | External Medical Summary ---
Author Name Unknown Address Unknown Organization K01:[facility] - [address] [place] [address] Laboratory Report Ordering Provider Test Date Status JOSE RAFAEL BONILLA 10/10/2023 12:10:56 Final Normal: <30 mg/g creatinine< br/>High: 30-300 mg/g creatinine
Very High: >300 mg/g creatinine
Nephrotic: >2200 mg/g creatinine Observation Date Value Abnormality Reference (Units ) Status Albumin, Urine 10/10/2023 12:10:56 <1.20 (mg/dL) Final Creatinine, Urine 10/10/2023 12:10:56 52 (mg/dL) Final Albumin/Creatinine [Mass Ratio] in Urine 10/10/2023 12:10:56 <23 <30 (mg/g Creat) Final Performing Location LABORATORY [facility] - [address] [place] [address]
--- OUTSIDE RECORDS SUMMARY | 2024-02-20 11:50 | External Medical Summary | Summary of Care ---
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 * Evaluate & Treat - Unlimited Visits (Within 10 days (routine)) - Pending Review Specialty Diagnoses / Procedures Referred By Maral lawson Referred To Contact Hematology/Oncology / Hematology Oncology Diagnoses Post-operative [facility] Yazmin Gomez PA-C [address] [place] [address] Referral ID Status Reason Start Date Expiration Date Visits Requested Visits Authorized [id number] Pending Review Specialty Services Required 08/20/[phone] Encounter Details Date Type Department Care Team (Late st Contact Info) Description 09/01/2023 3:00 PM EDT Office Visit Hematology/Oncology [facility] [place] [address] [place] [phone] Pepito Chiang MD [address] [place] [address] Malignant neoplasm of splenic flexure (HCC)* Allergies Active Allergy Reactions Criticality Noted Date Comments Amoxicillin-Pot Clavulanate 02/24/20 19 Codeine High 01/05/2020 Other reaction(s): "I GOT REALLY SICK" Hydrocodone Bit-Homatrop Mbr 017 Levothyroxine Sodium Hives,Rash High 10/01/2010 documented as of this encounter (statuses as of 09/01/2023) Medications Medication Sig Dispensed Refills Start Date [...] the morning. 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 current use of systemic steroids 07/30 Steroid-induced [...] as of this encounter (statuses as of 09/01/2023) Resolved Problems Problem Noted Date Diagnosed Date [...] as of this encounter (statuses as of 09/01/2023) Immunizations Name Administration Dates Next Due COVID-19 [...] t, High Dose, No Preserve, IM 12/21/2016 TDAP (age 11 and older)(Adacel) 12/29/2013 Varicella Zoster Vaccine (Adult) 06/12/2011 Zoster Vaccine Recombinant (Shingrix) 08/18/2019 ,05/13/2019 documented as of this encounter Social History Tobacco Use Types Packs/Day Years Used Date Smoking Tobacco: Former Cigarettes 1 20 0 09/12/1962 - 09/12/1982 Smokeless Tobacco: Never Tobacco Cessation:Counseling Given: Not [...] Sign Reading Time Taken Comments Blood Pressure 158/79 09/01/2023 2:55 PM EDT Pulse 90 09/01/2023 2:55 PM EDT Temperature 36.2 C (97.2 F) 09/01/2023 2:55 PM ED T Respiratory Rate - - Oxygen Saturation 92% 09/01/2023 2:55 PM EDT Inhaled Oxygen Concentration - - Weight 95.8 kg (211 lb 4.8 oz) 09/01/2023 2:55 P M EDT Height 165.1 cm (5' 5") 09/01/2023 2:55 PM EDT Body Mass Index 35.16 09/01/2023 2:55 PM EDT documented in this encounter Functional [...] Progress Notes * Pepito Chiang MD - 09/01/2023 2:53 PM EDT Outpatient Consult Note Data Source: Patient, Epic record. 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 Past Medical History: Diagnosis Date Colon polyps 12/11/2011 DM2 (diabetes mellitus, type 2) (HCC) Dyslipidemia, goal LDL below 160 HTN, goal below 140/90 Hypogonadism in male 10/30/2020 Impacted cerumen 2004 Sensorineural hearing loss, bilateral 2004 SVT (supraventricular tachycardia) (HCC) Vertigo 2004 Current Outpatient Medications Medication Sig [...] mouth in the morning. 90 Tablet 4 predniSONE 2.5 MG Oral Tablet (Deltasone) Take 1 Tablet by mouth in the morning. (Patient not taking: Reported on 09/01/2023) 90 Tablet 3 Zinc 22.5 MG Oral Tablet Take by mouth. Potassium Chloride ER 10 MEQ Oral Tablet Extended Release Take 1 Tablet by mouth in the morning. 270 Tablet 3 Azelastine HCl 0.1 % Nasal Solution (Astelin) Administer 1 [place] into nostril in the morning and 1 [place] before bedtime. 90 mL 3 Furosemide 20 MG Oral Tablet (Lasix) Take 1 Tablet by mouth in the morning. 90 Tablet 3 Vitamin B-12 1000 MCG Oral Tablet (Cyanocobalamin) Take 1 Tablet by mouth in the morning. Triamterene-HCTZ 37.5-25 MG Oral Tablet (Maxzide-25) Take 0.5 Tablets by mouth in the morning. Atorvastatin Calcium [...] mouth in the morning. 180 Tablet 2 No current facility-administered medications for this visit. Social History Socioeconomic History Marital status: Spouse name: Not on file Number of children: Not on file Years of education: Not on file Highest education level: Not on file Occupational History Not on file Tobacco Use Smoking status: Former Current packs/day: 0.00 Average packs/day: 1 pack/day for 20.0 years (20.0 ttl pk-yrs) Types: Cigarettes Start date: 09/12/1962 Quit date: 09/12/1982 Years since quittin.9 Smokeless tobacco: Never Tobacco comments: quit summer Vaping Use Vaping status: Never Used Substance and Sexual Activity Alcohol use: Yes Comment: one drink once a week Drug use: No Sexual activity: Yes Partners: Female Other Topics Concern Not on file Social History Narrative Not on file Social Determinants of Health Financial Resource Strain: Not on file Food Insecurity: No Food Insecurity (12/27/2022) Hunger Vital Sign Worried About Running Out of Food in the Last Year: Never true Ran Out of Food in the Last Year: Never true Transportation Needs: Not on file Physical Activity: Not on file Stress: Not on file Social Connections: Not on file Intimate Partner Violence: Not on file Housing Stability: Not on file Family History Problem Relation Name Age of Onset Cancer Mother melanoma Neurological Disorder Father Parkinson's Other (Other) Father AAA No Known Problems Sister Other (Other) Grandfather (Paternal) AAA Melanoma Aunt (Maternal) Melanoma Uncle (Maternal) Glaucoma Uncle (Paternal) REVIEW OF SYSTEMS: General: No Fever, chills, [...] Hematuria or dysuria Musculoskeletal: No bone pain Skin: No skin rash or lesions noted Neurologic: No numbness, weakness, neuropathic pain or change in cognitive function Psychiatric: No vegetative signs of depression Endocrine: No symptoms of hypothyroidism or hyperglycemia Hematologic: No bleeding or lymph nodes noted As mentioned above, all other systems were reviewed in full and are unremarkable. Review of patient's allergies indicates: Allergen Reactions Codeine Other reaction(s): "I GOT REALLY SICK" Synthroid [Levothyroxine Sodium] Hives and Rash Augmentin [Amoxicillin-Pot Clavulanate] Hydrocodone Bit-Homatrop Mbr PHYSICAL EXAMINATION: General Appearance: Healthy appearing patient in no acute distress There were no vitals taken for this visit. Vitals were reviewed. HEENT: No oral or pharyngeal masses, ulceration or thrush noted, no sinus tenderness. Neck is supple with no thyromegaly or JVD noted. Lymph Nodes: No lymphadenopathy noted in the occipital, pre and post auricular, cervical, supra andinfraclavicular, axillary, epitrochlear, inguinal, and popliteal region. Lungs/Thorax: Clear to auscultation, no accessory muscles of respiration being used. Heart: Regular rate and rhythm, normal S1, S2. Abdomen: Soft, nontender, bowel sounds present, no [...] is continue to monitor the patient clinically. Discussed with the patient and in detail about diagnosis and reviewed all the available CT scan and pathology finding with them. PLAN: Return to clinic in 3 months with CBC, CMP and CEA level. The patient voiced understanding of all of [...] this encounter Nursing Notes * Irene Aguilar MED ASSIST - 09/01/2023 2:56 PM EDT Patient identifed by name and [...] it for you? ALREADY ACTIVE Filed Vitals: 09/01/23 1455 BP: 158/79 Pulse: 90 Temp: 36.2 C (97.2 F) TempSrc: Tympanic SpO2: 92% Weight: 95.8 kg (211 lb 4.8 oz) Height: 1.651 m (5' 5") Patient was instructed to not get up [...] Description 10/10/2023 8:30 AM EDT Laboratory Laboratory [facility] [place] [address] [address] [id number] [facility] [address] [place] [address] 10/24/2023 2:00 PM EDT Office Visit General Internal Medicine [facility] [place] [address] [place] [address] Lana Eden MD [address] [place] [address] 11/20/2023 2:45 PM EDT [facility] [address] [place] [address] Best Shelley MD [address] [place] [address] 01/06/2024 3:00 PM EDT Office Visit Hematology/Oncology [facility] [address] [facility] [place] [place] [id number] Peptio Chiang MD [address] [place] [address] 02/24/2024 1:40 PM EST Office Visit Rheumatology [facility] [address] [facility] [place] [address] Niraj Shukla MD [address] [facility] [place] [address] 09/02/2024 2:00 PM EDT Office Visit Cardiology, [facility] [address] [place] [address] Billy Anthony PA-C [address] [place] [address] Scheduled Orders Name Type Priority Associated Diagnoses Orde r Schedule CBC WITH WBC DIFFERENTIAL Lab Routine Malignant neoplasm of splenic flexure (HCC) Expected: 11/17/2023, Expires: 03/30/2024 COMPREHENSIVE METABOLIC PANEL Lab Routine Malignant neoplasm of splenic flexure (HCC) Expected: 11/17/2023, Expires: 03/30/2024 CEA Lab Routine Malignant neoplasm of splenic flexure (HCC) Expected: 11/17/2023, Expires: 03/30/2024 Scheduled Procedures Name Priority Associated Diagnoses Date/Ti [...] 04/24/2023 Diabetic Foot Exam 11/06/2023 11/05/2022 (Precious gustafsone Completed), 08/09/2021 Albumin/Creatinine Ratio 12/14/2023 023, 11/13/2022, [...] D LEVEL ONCE IN A LIFETIME-USE SMARTSET# [id number] Completed 02/10/2023, 11/20/2021, 05/08/2021 GARDASIL-HPV IMMUNIZATION SERIES [...] Documents on File Type Date Recorded 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 Question Answer Comments Discussion of Advance Directives occurred with: Patient Care Teams Technology Administrator Relationship Specialty Start Date End Date Lana Eden MD [address] [facility] [place] [address] PCP - General Internal Medicine 12/04/20 documented as of this encounter
--- OUTSIDE RECORDS SUMMARY | 2024-02-20 11:50 | External Medical Summary | Summary of Care ---
Author Name Unknown Organization [facility] Address [address] [place] [address] Phone [phone] Care Team Providers Care Cafeteria Or Lunchroom Checker Name Role Phone Lana Eden MD Primary Care Provider [phone] Reason for Visit * Reason Onset Date Comments Medication Refill 09/04/2023 Encounter Details Date Type Department Care Team (Late st Contact Info) Description 09/04/2023 Refill General Internal Medicine [facility] [address] [place] [address] Lana Eden MD [address] [place] [address] HTN, goal below 140/90; Edema, unspecified type Allergies Active Allergy Reactions Criticality Noted Date Comments Amoxicillin-Pot Clavulanate 02/24/20 19 Codeine High 01/05/2020 Other reaction(s): "I GOT REALLY SICK" Hydrocodone Bit-Homatrop Mbr 017 Levothyroxine Sodium Hives,Rash High 10/01/2010 documented as of this encounter (statuses as of 09/05/2023) Medications Medication Sig Dispensed Refills Start Date [...] rhinitis, unspecified seasonality, unspecified trigger Administer 1 [place] into nostril in the morning and 1 [place] before bedtime. 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 current use of systemic steroids 07/30 Steroid-induced [...] as of this encounter (statuses as of 09/05/2023) Resolved Problems Problem Noted Date Diagnosed Date [...] as of this encounter (statuses as of 09/05/2023) Immunizations Name Administration Dates Next Due COVID-19 [...] Telephone Encounter - Geneva Ritter RPh - 09/05/2023 10:27 AM EDT Refused Prescriptions: Disp Refills Furosemide 20 MG Oral Tablet (Lasix) 90 Tab*3 Sig: Take 1 Tablet by mouth in the morning.Refused By: GENEVA RITTERReason for Refusal: Too soon documented in this encounter Plan of Treatment Upcoming Encounters Date Type Department Care Team (Late st Contact Info) Description 10/10/2023 8:30 AM EDT Laboratory Laboratory [facility] [place] [address] [place] [address] [phone] Keena Armendariz [address] [place] [address] 10/24/2023 2:00 PM EDT Office Visit General Internal Medicine [facility] [place] [address] [place] [address] Lana Eden MD [address] [facility] [place] [address] 11/20/2023 2:45 PM EDT [facility] [address] [place] [address] Best Shelley MD [address] [place] [address] 01/06/2024 3:00 PM EDT Office Visit Hematology/Oncology [facility] [address] [place] [address] Pepito Chiang MD [address] [place] [address] 02/24/2024 1:40 PM EST Office Visit Rheumatology [facility] [address] [facility] [place] [address] Niraj Shukla MD [address] [employer] [place] [address] 09/02/2024 2:00 PM EDT Office Visit [facility], [facility] [address] [facility] [place] [address] Billy Anthony PA-Precious [address] [facility] [place] [address] Scheduled Procedures Name Priority Associated Diagnoses Date/Ti [...] D LEVEL ONCE IN A LIFETIME-USE SMARTSET# [id number] Completed 02/10/2023, 11/20/2021, 05/08/2021 GARDASIL-HPV IMMUNIZATION SERIES Aged Out No longer eligible based on patient's age to complete this topic MENINGOCOCCAL (MENACTRA/MENVEO) Aged Out No longer eligible based on patient's age to complete this topic documented as of this encounter Medical Devices Not on filedocumented as of this encounter Visit Diagnoses Diagnosis HTN, goal below 140/90 Unspecified essential hypertension Edema, unspecified type documented in this encounter Advance Directives Documents on File Type Date Recorded 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 Question Answer Comments Discussion of Advance Directives occurred with: Patient Care Teams Cafeteria Or Lunchroom Checker Relationship Specialty Start Date End Date Lana Eden MD [address] [place] [address], [place] [address] PCP - General Internal Medicine 12/04/20 documented as of this encounter
--- OUTSIDE RECORDS SUMMARY | 2024-02-20 11:50 | External Medical Summary ---
Author Name Unknown Address Unknown Organization [facility] [address] [place] [address] Laboratory Report Ordering Provider Test Date Status JOSE RAFAEL BONILLA 10/10/2023 08:21:18 Final Observation Date Value Abnormality Reference (Units ) Status BUN 10/10/2023 08:21:18 18 6-20 (mg/dL) Final Creatinine 10/10/2023 08:21:18 0.9 0.6-1.2 (mg/dL) Final Glomerular filtration rate/1.73 sq M.predicted [Volume Rate/Area] in Serum, Plasma or Blood by Creatinine-based formula (CKD-EPI) 10/10/2023 08:21:18 83 >=60 (mL/min) Final eGFR is calculated based on the CKD-EPI 2020 equation Sodium 10/10/2023 08:21:18 145 135-146 (m mol/L) Final Potassium 10/10/2023 08:21:18 3.2 Below low normal 3.5 -5.1 (mmol/L) Final Cl 10/10/2023 08:21:18 103 98-107 (mm ol/L) Final CO2 10/10/2023 08:21:18 28 22-32 (mmo l/L) Final Anion gap 10/10/2023 08:21:18 14 7-15 (mmol /L) Final Glucose 10/10/2023 08:21:18 102 70-120 (mg /dL) Final Albumin 10/10/2023 08:21:18 3.7 Below low normal 3.8 -5.0 (g/dL) Final AST (Aspartate aminotransferase) 10/10/2023 08:21:18 14 10-50 (U/L) Fin al Alk Phos 10/10/2023 08:21:18 60 35-130 (U/ L) Final Bilirubin, Total 10/10/2023 08:21:18 0.5 <=1 .2 (mg/dL) Final Calcium 10/10/2023 08:21:18 9.8 8.4-10.2 ( mg/dL) Final Protein 10/10/2023 08:21:18 6.2 6.0-8.3 (g /dL) Final ALT (Alanine aminotransferase) 10/10/2023 08:21:18 19 10-50 (U/L) Hi david Performing Location [facility] [address] [place] [address]
--- OUTSIDE RECORDS SUMMARY | 2024-02-20 11:50 | External Medical Summary | Summary of Care ---
Author Name Unknown Organization [facility] Address [address] [place] [address] Phone [phone] Care Team Providers Care Polytechnic Registrar Name Role Phone Lana Eden MD Primary Care Provider [phone] Reason for Visit * Reason Comments Follow Up 11 month follow up. SOB ongoing. Denies chest pain, palpitations, edema and dizziness. Encounter Details Date Type Department Care Team (Late st Contact Info) Description 09/01/2023 10:00 AM EDT Office Visit Cardiology, [facility] [address] [place] [address] Billy Anthony PA-C [address] [facility] [place] [address] PVC (premature ventricular contraction)*; HTN, goal below 140/90; SVT (supraventricular tachycardia) (HCC); Hyperlipidemia with target LDL less than 100; Hypokalemia Allergies Active Allergy Reactions Criticality Noted [...] rhinitis, unspecified seasonality, unspecified trigger Administer 1 Hem[place] into nostril in the morning and 1 Hemingway before bedtime. 90 mL 3 04/03/2023 Active [...] the morning. 180 Tablet 2 07/07/2023 Active Multi-Vitamins Oral Tablet Take 1 Tablet by mouth daily at noon. Do not start before August 09, 2023. 30 Tablet 1 08/09/2023 4 Discontinue d(Patient preference/ discontinua tion) oxyCODONE HCl 5 MG Oral Tablet (Oxy IR) Take 1 Tablet by mouth every 6 hours as needed for Pain, Severe. 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 systemic steroids 07/30 Steroid-induced [...] Sign Reading Time Taken Comments Blood Pressure 136/74 09/01/2023 10:04 AM EDT Pulse 88 09/01/2023 10:04 AM EDT Temperature - - Respiratory Rate 17 09/01/2023 10:04 AM EDT Oxygen Saturation - - Inhaled Oxygen Concentration - - Weight 95.6 kg (210 lb 12 oz) 09/01/2023 10:04 A M EDT Height - - Body Mass Index 34.02 08/20/2023 2:02 PM EDT documented in this encounter Functional [...] Progress Notes * Billy Anthony PA-C - 09/01/2023 10:00 AM EDT History of Present Illness: Harpreet Oneal is a 83 year old male who returns today for cardiology follow-up evaluation. Accompanied by . Argumentative. Positive FOBT. Colonoscopy on July 17, 2023 revealed a tumor in the descending colon. 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 First it was tachycardia. Then it was loss of senses, smell then taste, then microclots in the lungs, now chronic fatigue symptome. Mornings are tough. No stamina; he seems to build up energy throughout the day. He is sure he does not have nocturnal hypoxemia or sleep apnea. Diagnosed with PMR, trying to cut down on the Prednisone. No chest pain. No palpitations. No fluid. No syncope. Problem List: Atrial and ventricular ectopy Symptomatic and asymptomatic paroxysmal SVT Ventricular tachycardia via Zio monitoring Preserved LV systolic function Exertional dyspnea, attributed by the patient to be secondary to deconditioning. 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) Past Medical History: Diagnosis Date Colon polyps 12/11/2011 DM2 (diabetes mellitus, type 2) (HCC) Dyslipidemia, goal LDL below 160 HTN, goal below 140/90 Hypogonadism in male 10/30/2020 Impacted cerumen 2004 Sensorineural hearing loss, bilateral 2004 SVT (supraventricular tachycardia) (HCC) Vertigo 2004 Past Surgical History: Procedure Laterality Date COLONOSCOPY 2001 [place]/10 years follow up COLONOSCOPY, DIAGNOSTIC (RECTUM) 09/03/2017 adenomatous polyp, diverticulosis/[facility] COLONOSCOPY, DIAGNOSTIC (RECTUM) 07/17/2023 COLONOSCOPY FLEXIBLE PROXIMAL DIAGNOSTIC performed by Chet Bhagat DO at [facility] EGD, FLEXIBLE, DIAGNOSTIC 02/10/2019 acid reflux, hiatal hernia, repeat 2 mo / [facility] EGD, FLEXIBLE, DIAGNOSTIC 05/11/2019 acid reflux, hiatal hernia / [facility] EGD, FLEXIBLE, DIAGNOSTIC 07/17/2023 ESOPHAGOGASTRODUODENOSCOPY (EGD), FLEXIBLE, TRANSORAL, DIAGNOSTIC performed by Chet Bhagat DOat [facility] LAPAROSCOPIC COLECTOMY PARTIAL WITH ANASTOMOSIS N/A 08/05/2023 LAPAROSCOPIC PARTIAL COLECTOMY WITH ANASTOMOSIS performed by Best Shelley MD at OR [facility] MISCELLANEOUS ORDER ([facility] ONLY) 10/08/2019 skin lesion removed left forehead REMOVE CATARACT, INSERT LENS PROSTH 2018 bilateral Family History Problem Relation Age of Onset Cancer Mother melanoma Neurological [...] Tobacco comments: quit summer Vaping Use Vaping Use: Never used Substance and Sexual Activity Alcohol use: Yes Comment: a drink on weekends- a cocktail Drug use: No Sexual activity: Yes Partners: [...] on file Housing Stability: Not on file Complete Review of Systems is as stated above, negative, or noncontributory. Allergies as of 09/01/2023 - Reviewed 08/20/2023 Allergen Reaction Noted Codeine 01/05/2020 Synthroid [levothyroxine [...] 0.1 % Nasal Solution (Astelin) Administer 1 Hemingway into nostril in the morning and 1 [place] before bedtime. 90 mL 3 Furosemide 20 [...] mouth in the morning. 180 Tablet 2 predniSONE 2.5 MG Oral Tablet (Deltasone) Take 1 Tablet by mouth in the morning. (Patient not taking: Reported on 09/01/2023) 90 Tablet 3 No current facility-administered medications for this visit. PHYSICAL EXAMINATION: BP 136/74 | Pulse 88 | Resp 17 | Wt 95.6 kg (210 lb 12 oz) | BMI 34.02 kg/m | BSA 2.11 m Examined in a wheelchair General: Alert, no distress Skin: No rash Eyes: PER. Conjunctiva pink, [...] 70%. May 16, 2022 TTE Interpretation Summary ([facility], Dr. Callahan): Sinus tachycardia with frequent ventricular contractions present during echocardiogram study. Normal LV wall thickness. Normal LV wall motion. Hyperdynamic LV function. Ejection fraction 65 to 70%. Mild aortic valve sclerosis without significant stenosis. Doppler findings do not suggest pulmonary hypertension. EKG on 08/05/2023: Sinus tachycardia at 101 bpm with premature ventricular complexes, anterolateral ST-T wave abnormality. QTc 446 ms. IMPRESSION: 83-year-old male, past history detailed above, returning today in routine cardiology follow-up. present for entire visit. Overall, patient appears stable. He declines ambulatory EKG,evaluation for nocturnal hypoxemia and/or sleep apnea, all my recommendations except for a follow-up potassium level noting the hypokalemia observed on August 10, 2023 (attributed by patient to withholding of potassium chloride during recent hospitalization). Billy Anthony PA-C Department of Cardiology I spent a total of 30-39 minutes (exact time 36 mins) on the date of service in preparation, delivery, and documentation of the care provided to Harpreet Oneal excluding any time spent in the performance of separately billed services. This visit involved medical care services related to at least one serious condition or complex condition requiring ongoing care. This chart was completed in part ut [employer]. Grammatical errors, random word insertions, prounoun errors, and incomplete sentences are an occasional consequence of this system due to software limitations, ambient noise, and hardware issues. Any formal questions or concerns about the content, text, or information contained within the body of this dictation should be directly addressed to theprovider for clarification. documented in this encounter Nursing Notes * Best Fernandez LPN - 09/01/2023 10:03 AM EDT Patient identified by full name and date of Chief Complaint Patient presents with Follow Up 11 month follow up. SOB ongoing. Denies chest pain, palpitations, edema and dizziness. Examination Room: 2 Name: Harpreet Oneal Date of : (1940). Reason for Visit: 11 month follow up Interim Hospitalization(s): [facility] 08/04-08/10/23 Problems/Concerns: See chief complaint Chest Pain/SOB: See chief complaint [facility] Discussed: Not applicable [facility] [employer] [facility] is a way you can talk to [...] 09/01/2023 3:00 PM EDT Office Visit Hematology/Oncology [facility] [address] [place] [phone] Pepito Chiang MD [address] [place] [address] 10/10/2023 8:30 AM EDT Laboratory Laboratory [facility] [place] [address] [place] [id number] [place] [address] [facility] [place] [id number] 10/24/2023 2:00 PM EDT Office Visit General Internal Medicine [facility] [place] [address] [place] [address] Lana Eden MD [address] [place] [address] 11/20/2023 2:45 PM EDT Telemedicine General Surgery, [place] [address] [place] [address] Best Shelley MD [address], [place] [id number] 02/24/2024 1:40 PM EST Office Visit Rheumatology [place] [id number] [facility] [place] [address] Niraj Shukla MD [facility] [address] [place] [facility] [place], [place] [address] 09/02/2024 2:00 PM EDT Office Visit Cardiology, [facility] [address] [facility] [place] [address] Billy Anthony PA-C [address] [place] [address] Scheduled Orders Name Type Priority Associated Diagnoses Orde r Schedule BASIC METABOLIC PANEL Lab Routine Hypokalemia Expected: 09/01/2023, Expires: 08/31/2024 Scheduled Procedures Name Priority Associated [...] Exam 11/06/2023 11/05/2022 (Precious hagen Completed), 08/09/2021 Albumin/Creatinine Ratio 12/14/2023 023, 11/13/2022, [...] D LEVEL ONCE IN A LIFETIME-USE SMARTSET# [id number] Completed 02/10/2023, 11/20/2021, 05/08/2021 GARDASIL-HPV IMMUNIZATION SERIES Aged Out No longer eligible based on patient's age to complete this topic MENINGOCOCCAL (MENACTRA/MENVEO) Aged Out No longer eligible based on patient's age to complete this topic documented as of this encounter Medical Devices Not on filedocumented as of this encounter Visit Diagnoses Diagnosis PVC (premature ventricular contraction)- Primary Other premature beats HTN, goal below 140/90 Unspecified essential hypertension SVT (supraventricular tachycardia) (HCC) Other specified cardiac dysrhythmias Hyperlipidemia with target LDL less than 100 Other and unspecified hyperlipidemia Hypokalemia Hypopotassemia documented in this encounter Advance Directives Documents on File Type Date Recorded 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 Question Answer Comments Discussion of Advance Directives occurred with: Patient Care Teams Polytechnic Registrar Relationship Specialty Start Date End Date Lana Eden MD [address] [facility] [place] [address] PCP - General Internal Medicine 12/04/20 documented as of this encounter
[2024-02-20] MEDS ORDERED: ALUMINUM/MAGNESIUM SUSP 30 ML UDC PO PRN (11:57)
[2024-02-20] MEDS ORDERED: POLYETHYLENE (MIRALAX) 17 GM PACK PO PRN (11:57)
[2024-02-20] MEDS ORDERED: MAGNESIUM HYDROXIDE SUSP 30 ML UDC PO PRN (11:57)
[2024-02-20] MEDS ORDERED: ONDANSETRON INJ 2 MG/ML 2 ML VIAL IV PRN (11:57)
[2024-02-20] MEDS ORDERED: ACETAMINOPHEN 325 MG TAB PO PRN (11:57)
--- NOTE | 2024-02-20 12:13 | History & Physical Report ---
Date of Service February 20, 2024 Assessment & Plan (1) Progressive focal motor weakness: Plan Progressive weakness Recent medication changes - patient discontinued co-Q10/other vitamins, added Reglan early December, increase metoprolol dose early January [from 50 mg daily to 100 mg twice daily, now has been weaning down under guidance of Dr. Campuzano, currently at 50 mg twice daily and has Zio patch monitor]. Patient states that he has been worked up in the line of myasthenia gravis and he was told it is negative in 2020. Patient reports that he has been dealing with chronic fatigue/loss of smell and taste sensation since winter 2018 and believes he might have gotten COVID around the time but reports it it was never tested/documented. Pt reports he has been decreasing his prednisone (for PMR) from 12.5 mg daily to 5 mg daily over the course of last 3 months. Random cortisol at presentation is 10.29 (wnl). Will send respiratory pathogen panel, ESR, CRP, CPK, B12, folate. Send tick borne serology. Fall precaution, PT/OT. Admitting CXR and CT head with no acute finding. Might need multiple other imagings, will await until neurology evaluation so that we can order all the test at the same time. Will hold statin for now until cpk is back. Other chronic medical conditions: HTN, HLD, A-fib, PMR -- continue with/resume home meds as when able. DVT prophylaxis: Patient on Eliquis Full code History of Present Illness Chief Complaint: Progressive weakness Primary Care Provider: Lana Eden MD 83-year-old male with PMH of T2DM, HLD, male hypogonadism, allergic rhinitis, SVT, HTN, multiple subsegmental PE on Eliquis, A-fib on metoprolol, malignant neoplasm of splenic flexure, PMR on steroid, steroid-induced osteoporosis, SNHL bilateral, YAMILE, status post repair of paraesophageal hernia presented to the ED with complaint of progressive weakness since first week of January. Patient reports that he has been having " extreme weakness" since first week of January, has been slowly losing strength/energy more so in the upper extremity than in lower extremity. He is able to walk short distances but not able to cut his food or open water bottle which is affecting his ADLs. Patient feels that h e is generally losing his motor control, he has not noticed decrease in sensation. Patient denies any flulike illness or viral gastroenteritis like illness in the last 2 to 3 months. Patient denies any shortness of breath. Patient reports progressive weakness over the last month, denies any increasing weakness of muscle within the same activity event [e.g., he does not get any weaker than he started with when eating a lunch]. Patient reports he has been dealing with loss of smell and taste [the sensation has come back little] and chronic fatigue since winter 2018 and believes that he might have gotten COVID-19 infection but he states that it is not documented/proven anywhere. Patient also reports that he was worked up in the line of myasthenia gravis in 2020 by neurologist which was deemed negative at the end of investigation per patient. In the last few months, after paraesophageal hernia repair Reglan was added at the beginning of December for difficulty swallowing, he has stopped his co-Q10 and other vitamin supplements after Sx, his metoprolol dose was increased from 50 mg daily to 100 mg twice a day towards the beginning of January [it has currently been weaned down to 50 mg twice a day, patient has Zio patch monitor, patient follows Dr. Campuzano]. Pt states he has been weaning off of his prednisone from 12.5 mg daily to 5 mg daily over the course of last 3 months. Patient denies any other medication changes. Patient denies headache/dizziness/sore throat/cough/chest pain/palpitation/nausea/vomiting/pain or burning while passing urine/diarrhea. Patient reports his usual bowel movement is somewhat constipation. Patient reports he occasionally has tremors when he is feeling very weak. Patient reports quitting smoking 1982, denies alcohol and recreational drug use. Full code as per my discussion w/ the pt and his at bedside. Medications reviewed with the patient and his at bedside. Plan of care discussed with the patient and his at bedside, they voiced understanding and were agreeable. Allergies Allergy/AdvReac Type Severity Reaction Status Date / Time levothyroxine Allergy Intermediate HIVES,LIPS Verified 05/19/22 00:20 SWELLING hydrocodone Allergy Unknown Unknown Verified 05/19/22 00:20 amoxicillin [From Augmentin] AdvReac Severe Diarrhea Verified 05/19/22 00:20 clavulanic acid AdvReac Severe Diarrhea Verified 05/19/22 00:20 [From Augmentin] codeine AdvReac Intermediate "I GOT Verified 05/19/22 00:20 REALLY SICK" metformin AdvReac Intermediate GI SYMPTOMS Verified 05/19/22 00:22 Home Medications Medication Instructions Recorded Confirmed Type atorvastatin 20 mg tablet 20 mg PO QAM 08/08/18 02/20/24 History calcium 600 mg (as 1 cap PO 3XWK 05/03/19 02/20/24 History carbonate)-vitamin D3 5 mcg (200 unit) capsule (Calcium 600 + D(3)) azelastine 205.5 mcg (0.15 %) 1 spray intranasal HS PRN Other 05/26/21 02/20/24 History nasal spray ferrous sulfate 325 mg (65 mg 325 mg PO UD 05/26/21 02/20/24 History iron) tablet (iron) prednisone 10 mg tablet 5 mg PO DAILY 05/26/21 02/20/24 History apixaban 5 mg tablet (Eliquis) 5 mg PO AMHS 07/31/21 02/20/24 History metformin 500 mg tablet,extended 500 mg PO DAILYBB 07/31/21 02/20/24 History release 24 hr cholecalciferol (vitamin D3) 125 125 mcg PO DAILY 05/16/22 02/20/24 History mcg (5,000 unit) tablet (Vitamin D3) diltiazem HCl 300 mg 300 mg PO DAILY 05/16/22 02/20/24 History capsule,extended release 24 hr (Cardizem CD) irbesartan 150 mg tablet 150 mg PO HS 05/16/22 02/20/24 History potassium chloride 10 mEq 10 meq PO TID 05/16/22 02/20/24 History tablet,extended release(part/cryst) vitamin K2 100 mcg capsule 100 mcg PO DAILY 05/19/22 02/20/24 History furosemide 20 mg tablet 20 mg PO DAILY 02/20/24 02/20/24 History metoclopramide HCl 10 mg tablet 10 mg PO TID 02/20/24 02/20/24 History metoprolol succinate 100 mg 50 mg PO BID 02/20/24 02/20/24 History tablet,extended release 24 hr Past Med/Surg History Problem List (Updated 02/20/24 @ 12:20 by Peter Anna MD) Progressive focal motor weakness Premature atrial contractions Sinus tachycardia Elevated lactic acid level (Acute) Hypoxemia (Acute) Lab test negative for COVID-19 virus (Acute) Hx pulmonary embolism Lactic acidosis Atrial fibrillation with RVR Acute viral bronchitis SOB (shortness of breath) (Acute) Cough (Acute) URI (upper respiratory infection) (Acute) A-fib (Acute) Bilateral pulmonary embolism (Acute) Trochanteric bursitis, right hip Esophagitis Elevated glucose H/O colonoscopy (Chronic) Superficial thrombophlebitis of left leg (Acute) Abnormal EKG Encounter for pre-operative examination Dysphagia Bursitis of hip, right HTN (hypertension) (Chronic) Dyslipidemia (Chronic) GERD (gastroesophageal reflux disease) (Chronic) Allergic rhinitis (Chronic) Medical History Allergic rhinitis Arrhythmia Bronchitis 02/2019-TREATED Difficulty swallowing HX-RESOLVED PER PT DVT (deep venous thrombosis) LEFT LOWER LEG 2018-AFTER STOPPED TAKING ASPIRIN FOR 6 [id number] SINCE NAD NO ISSUES Dyslipidemia GERD (gastroesophageal reflux disease) Hearing deficit HTN (hypertension) Osteoarthritis Trochanteric bursitis, right hip Surgical History History of bilateral cataract extraction History of colonoscopy with polypectomy History of esophagogastroduodenoscopy (EGD) History of tooth extraction Family History Mother Cancer Melanoma Father AAA (abdominal aortic aneurysm) Parkinson disease Other No family history of adverse response to anesthesia Social History Smoking Status: Never smoker Tobacco Type: Cigarettes Second Hand Exposure: No; Do You Dip or Chew Tobacco: No; Hx Alcohol Use: Yes Alcohol type: hard liquor Hx Substance Use: No Preferred Language: Greek Communication Ability: Effective 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 Physical Exam Physical Exam: GENERAL: Alert and oriented x3. NAD, on RA. HEENT: No pallor, no icterus. Pupils equal, round and reactive to light. Oral mucosa moist. NECK: No JVD, no neck masses. HEART: S1 and S2 heard. Regular rate and rhythm. HR in 90s. No murmur, no gallop. RESPIRATORY SYSTEM: Normal AP diameter. No accessory muscle use. No wheezing, no crackles. ABDOMEN: Soft, bowel sounds present, nontender, no distention. CENTRAL NERVOUS SYSTEM: No facial droop. Speech is clear. Obeys simple commands. Moves extremities. power 5/5 UE and LE. EXTREMITIES: No edema, no erythema seen. Results & Data Results & Data Vital Signs (Past 12 Hours) Vital Signs Temp Pulse Resp BP Pulse Ox O2 Del Method 02/20/24 10:00 80 20 157/99 H 96 Room Air 02/20/24 09:00 75 12 96 Room Air 02/20/24 08:29 75 02/20/24 08:20 37.3 C 78 12 171/103 H 96 Room Air
--- NOTE | 2024-02-20 12:39 | Electrocardiogram Report ---
Test Reason : Blood Pressure : */* mmHG Vent. Rate : 78 BPM Atrial Rate : 78 BPM P-R Int : 164 ms QRS Dur : 72 ms QT Int : 398 ms P-R-T Axes : 55 12 -31 degrees QTcB Int : 453 ms Sinus rhythm with Premature atrial complexes Possible Inferior infarct , age undetermined Abnormal ECG When compared with ECG of 18-May-2022 23:02, Premature atrial complexes are now Present Borderline criteria for Inferior infarct are now Present T wave inversion now evident in Inferior leads Inverted T waves have replaced nonspecific T wave abnormality in Anterior leads Confirmed by Logan Varner ([id number]) on 02/20/2024 12:39:24 PM Referred By: REFERRED SELF Confirmed By: Logan Varner
[2024-02-20 12:40] LABS: C Reactive Protein 1.31 mg/dl (0-0.5)
[2024-02-20 13:50] LABS: Folate (Folic Acid),Ser orPlas 11.88 ng/ml (>5.38)
[2024-02-20 13:58] LABS: Adenovirus PCR Not Detected (NotDetected); Bordetella parapertussis PCR Not Detected (NotDetected); Bordetella pertussis PCR Not Detected (NotDetected); Chlamydia pneumoniae PCR Not Detected (NotDetected); Coronavirus 229E PCR Not Detected (NotDetected); Coronavirus CoV-2 (COVID19)PCR Not Detected (NotDetected); Coronavirus HKU1 PCR Not Detected (NotDetected); Coronavirus NL63 PCR Not Detected (NotDetected); Coronavirus OC43PCR Not Detected (NotDetected); Human Metapneumovirus PCR Not Detected (NotDetected); Influenza A PCR Not Detected (NotDetected); Influenza B PCR Not Detected (NotDetected); Mycoplasma pneumoniae PCR Not Detected (NotDetected); Parainfluenza Virus 1 PCR Not Detected (NotDetected); Parainfluenza Virus 2 PCR Not Detected (NotDetected); Parainfluenza Virus 3 PCR Not Detected (NotDetected); Parainfluenza Virus 4 PCR Not Detected (NotDetected); Respiratory Syncytial VirusPCR Not Detected (NotDetected); Rhinovirus/Enterovirus PCR Not Detected (NotDetected)
[2024-02-20] MEDS: APIXABAN 5 MG TABLET PO SCH (14:06)
[2024-02-20] MEDS: predniSONE 5 MG TAB PO SCH (14:06)
[2024-02-20] MEDS: dilTIAZem HCL 300 MG CAPCR PO SCH (14:06)
[2024-02-20] MEDS: METOCLOPRAMIDE HCL 10 MG TABLET PO SCH (16:17)
[2024-02-20] MEDS: POTASSIUM CHLORIDE 10 MEQ TABCR PO SCH (16:17)
--- NOTE | 2024-02-20 16:59 | Neurology Consultation ---
Date of Consultation February 20, 2024 Assessment & Plan (1) Weakness: With no specified focality to his exam. His reflexes were tested by the nurse and do not appear to be exaggerated. Low suspicion for ischemia. The patient could have parkinsonian features, with a strong family history of parkinsonism affecting his father. Also PMR and depression might play a role. Plan MRI of the C-spine with and without contrast. Trial of Sinemet 25/100 mg one half a tablet in the morning, 1/2 tablet at noon and one half a tablet in the evening and observe for effect and improvement. The patient will need treatment with antidepressant however will not be initiating with his send. Check copper level, check vitamin E level Further recommendations to follow Telehealth Consultation Telehealth Information Telehealth Information: I performed this visit using a real-time telehealth connection between my location and the patients location ([facility]). After connecting through interactive tele-video, patient was identified by name and date of and/or wristband check.Patient (or authorized healthcare pharmacy services representative) was informed that this was a telemedicine visit and it was being conducted confidentially over secure lines. My office door was closed and no one else was present in the room with me.Patient (or authorized healthcare pharmacy services representative) provided consent to proceed with the visit, expressed an understanding of privacy and security of the telemedicine visit, and gave permission to have a hospital pharmacy services representative in the room in order to assist with the visit and to conduct portions of the visit, as needed. I informed the patient (or authorized healthcare pharmacy services representative) that I reviewed their record and presented the opportunity for them to ask any questions regarding the visit today. The patient agreed to participate. History of Present Illness Reason for Consultation: generalized weakness Requesting Physician: Peter Anna MD Attending Physician: Peter Anna MD History of Present Illness Harpreet Oneal is an 83-year-old male patient with PMH of HTN, HLD, A-fib, maintained on Eliquis, PMR on chronic steroid therapy with the dose recently reduced due to osteoporosis prediabetes maintained on metoprolol. Who has presented to the hospital reporting generalized weakness. The patient tells me that he actually has been weak for over 4 years, with worsening over the past month. He states that sometimes especially in the morning it is difficult for him to open any cans, to use an utensils, to use his hands. His gait has changed he now shuffles and walks in small steps, he feels unsteady, does not go up or down stairs. He reports no pains no facial weakness, he feels the weakness is generalized and it starts all over his body he denies any weakness of her muscle group more than the other. When asked about any tremors he reports that he feels his body tremoring whenever he is resting. He admits to being depressed, because of his condition. He denies any recent fevers or chills respiratory symptoms or urinary symptoms no diarrhea no changes of his routine, no major changes in his environment or major stressors. Allergies Allergy/AdvReac Type Severity Reaction Status Date / Time levothyroxine Allergy Intermediate HIVES,LIPS Verified 05/19/22 00:20 SWELLING hydrocodone Allergy Unknown Unknown Verified 05/19/22 00:20 amoxicillin [From Augmentin] AdvReac Severe Diarrhea Verified 05/19/22 00:20 clavulanic acid AdvReac Severe Diarrhea Verified 05/19/22 00:20 [From Augmentin] codeine AdvReac Intermediate "I GOT Verified 05/19/22 00:20 REALLY SICK" metformin AdvReac Intermediate GI SYMPTOMS Verified 05/19/22 00:22 Home Medications Medication Instructions Recorded Confirmed Type atorvastatin 20 mg tablet 20 mg PO QAM 08/08/18 02/20/24 History calcium 600 mg (as 1 cap PO 3XWK 05/03/19 02/20/24 History carbonate)-vitamin D3 5 mcg (200 unit) capsule (Calcium 600 + D(3)) azelastine 205.5 mcg (0.15 %) 1 spray intranasal HS PRN Other 05/26/21 02/20/24 History nasal spray ferrous sulfate 325 mg (65 mg 325 mg PO UD 05/26/21 02/20/24 History iron) tablet (iron) prednisone 10 mg tablet 5 mg PO DAILY 05/26/21 02/20/24 History apixaban 5 mg tablet (Eliquis) 5 mg PO AMHS 07/31/21 02/20/24 History metformin 500 mg tablet,extended 500 mg PO DAILYBB 07/31/21 02/20/24 History release 24 hr cholecalciferol (vitamin D3) 125 125 mcg PO DAILY 05/16/22 02/20/24 History mcg (5,000 unit) tablet (Vitamin D3) diltiazem HCl 300 mg 300 mg PO DAILY 05/16/22 02/20/24 History capsule,extended release 24 hr (Cardizem CD) irbesartan 150 mg tablet 150 mg PO HS 05/16/22 02/20/24 History potassium chloride 10 mEq 10 meq PO TID 05/16/22 02/20/24 History tablet,extended release(part/cryst) vitamin K2 100 mcg capsule 100 mcg PO DAILY 05/19/22 02/20/24 History furosemide 20 mg tablet 20 mg PO DAILY 02/20/24 02/20/24 History metoclopramide HCl 10 mg tablet 10 mg PO TID 02/20/24 02/20/24 History metoprolol succinate 100 mg 50 mg PO BID 02/20/24 02/20/24 History tablet,extended release 24 hr Patient History Medical History DVT (deep venous thrombosis) LEFT LOWER LEG 2018-AFTER STOPPED TAKING ASPIRIN FOR 6 [id number] SINCE NAD NO ISSUES Bronchitis 02/2019-TREATED Arrhythmia Osteoarthritis Difficulty swallowing HX-RESOLVED PER PT Hearing deficit Surgical History History of bilateral cataract extraction History of colonoscopy with polypectomy History of esophagogastroduodenoscopy (EGD) History of tooth extraction Family History Mother Cancer Melanoma Father AAA (abdominal aortic aneurysm) Parkinson disease Other No family history of adverse response to anesthesia Social History Smoking Status: Former smoker Tobacco Type: Cigarettes Second Hand Exposure: No; Do You Dip or Chew Tobacco: No; Hx Alcohol Use: No Hx Substance Use: No Preferred Language: Chilean Communication Ability: Effective Reconciliation Manager Required: No Beliefs That Will Affect Care: None marital status: Current Living Situation: Spouse How many Children do You have: 0 Feels Safe at Home: Yes Safety Concerns: Feels Safe At This Time Assistive Devices: None Review of Systems As mentioned above extensive weakness throughout without specific symptoms Physical Exam General Constitutional: Appearance normally developed obese Head and face: normocephalic and atraumatic Eyes: no ptosis, no anisocoria, and no dysconjugate gaze Respiratory: normal effort Cardiovascular: regular rhythm and regular rate Abdomen: non distended Skin: no rashes, lesions, or ulcers noted Psychiatric: normal judgement and insight, normal mood, and normal affect NEUROLOGIC EXAMINATION: Mental Status:alert, oriented to time, place, person, normal recent memory, normal remote memory, normal attention span, normal concentration, normal language and normal fund of knowledge Cranial Nerves: CN 2 - no visual defect on confrontation and pupils round, equal, reactive to light CN 3, 4, 6 - extra-ocular movements intact and no nystagmus CN 5 - facial sensation intact CN 7 - no facial asymmetry CN 8 - intact hearing CN 9, 10 - palate symmetric, normal gag CN 11 - good shoulder shrug CN 12 - tongue midline MOTOR: Strength was at least antigravity throughout, Pronator drift was absent and slight resting tremors bilaterally, decreased handgrip bilaterally laterally SENSATION: intact and symmetric to pinprick, light touch, vibration and joint position GAIT: He takes sometimes 2 step and stand up, he walks with short steps, stooped posture and shuffling gait. COORDINATION: no ataxia with finger to nose testing and heel to ocampo testing REFLEXES: cannot assess over telemedicine Results & Data Vital Signs (Past 12 Hours) Vital Signs Temp Pulse Pulse Resp BP BP Pulse Ox 02/20/24 14:05 83 18 159/77 H 94 02/20/24 13:00 36.4 C L 69 16 159/76 H 93 02/20/24 13:00 74 28 H 171/100 H 94 02/20/24 12:30 75 19 166/79 H 92 02/20/24 11:24 84 23 186/86 H 97 02/20/24 10:33 75 21 176/83 H 96 02/20/24 10:00 80 20 157/99 H 96 02/20/24 09:00 75 12 96 02/20/24 08:29 75 02/20/24 08:20 37.3 C 78 12 171/103 H 96 O2 Del Method 02/20/24 14:05 Room Air 02/20/24 13:00 Room Air 02/20/24 13:00 02/20/24 12:30 02/20/24 11:24 02/20/24 10:33 02/20/24 10:00 Room Air 02/20/24 09:00 Room Air 02/20/24 08:29 02/20/24 08:20 Room Air Laboratory Results Abnormal lab results 02/20/24 02/20/24 02/20/24 Range/Units 09:10 09:45 10:08 WBC 12.85 H (4.8-10.8) K/ul Neut # (Auto) 10.64 H (1.40-6.50) K/uL Lymph # (Auto) 1.02 L (1.20-3.40) K/uL [place] # (Auto) 0.94 H (0.11-0.59) K/uL ESR 31 H (0-20) mm/hr BUN/Creatinine Ratio 22.2 H (10-20) Glucose 111 H (70-99(Fasting)) mg/dl POC Glucose (70-99) mg/dl Total Creatine Kinase 26 L (30-223) U/L C-Reactive Protein 1.31 H (0-0.5) mg/dl Urine pH 8.5 H (4.5-7.5) 02/20/24 Range/Units 14:30 WBC (4.8-10.8) K/ul Neut # (Auto) (1.40-6.50) K/uL Lymph # (Auto) (1.20-3.40) K/uL [place] # (Auto) (0.11-0.59) K/uL ESR (0-20) mm/hr BUN/Creatinine Ratio (10-20) Glucose (70-99(Fasting)) mg/dl POC Glucose 115 H (70-99) mg/dl Total Creatine Kinase (30-223) U/L C-Reactive Protein (0-0.5) mg/dl Urine pH (4.5-7.5) 04/24/23 14:49 ESR: 27 (H) (H): Data is abnormally high Diagnostic Findings Chest X-Ray 02/20/24 08:31 XR chest 1V portable HISTORY: 83 years-old Male weakness acute weakness COMPARISON: 05/19/2022 TECHNIQUE: AP view the chest FINDINGS: Cardiomediastinal and hilar silhouettes are unchanged. Battery pack projects over the left chest. No pneumothorax, pleural effusion or airspace consolidation. Bones appear grossly intact. IMPRESSION: No acute process. ACT 112: Negative or not required by law. The above report was generated using voice recognition software. It may contain grammatical, syntax or spelling errors. Electronically signed by: Jacob Del Angel M.D. 02/20/2024 9:[address] 02/20/24 08:44 CT OF THE HEAD WITHOUT CONTRAST CLINICAL HISTORY: weakness COMPARISON STUDY: Head CT, CTA of the head and MRI of brain July 31, 2021. CT DOSE: 625.8 mGy.cm TECHNIQUE: Helical axial images of the head were obtained without IV contrast. Automated exposure control was utilized for the study. A dose lowering technique was utilized adhering to the principles of ALARA. FINDINGS: No acute intracranial hemorrhage, midline shift or mass effect is present. White matter hypodensity suggests small vessel disease. The ventricular system is unremarkable. The basal cisterns are patent. No extra-axial collections are present. There are no findings to suggest acute dural sinus thrombosis or acute territorial infarct. No significant calvarial abnormalities are present. Visualized portions of the sinuses and mastoid air cells are clear. IMPRESSION: No acute intracranial findings. ACT 112: Negative or not required by law. Electronically signed by: Doyle Sevilla M.D. 02/20/2024 9:39 AM Medications Administered Home Medications Medication Instructions Recorded Confirmed Last Taken atorvastatin 20 mg tablet 20 mg PO QAM 08/08/18 02/20/24 07/30/21 calcium 600 mg (as 1 cap PO 3XWK 05/03/19 02/20/24 07/31/21 carbonate)-vitamin D3 5 mcg (200 unit) capsule (Calcium 600 + D(3)) azelastine 205.5 mcg (0.15 %) 1 spray intranasal HS PRN Other 05/26/21 02/20/24 07/30/21 nasal spray ferrous sulfate 325 mg (65 mg 325 mg PO UD 05/26/21 02/20/24 07/30/21 iron) tablet (iron) prednisone 10 mg tablet 5 mg PO DAILY 05/26/21 02/20/24 07/31/21 06:00 apixaban 5 mg tablet (Eliquis) 5 mg PO AMHS 07/31/21 02/20/24 07/31/21 metformin 500 mg tablet,extended 500 mg PO DAILYBB 04/19/22 11/08/24 04/19/22 release 24 hr cholecalciferol (vitamin D3) 125 125 mcg PO DAILY 05/16/22 02/20/24 Unknown mcg (5,000 unit) tablet (Vitamin D3) diltiazem HCl 300 mg 300 mg PO DAILY 05/16/22 02/20/24 Unknown capsule,extended release 24 hr (Cardizem CD) irbesartan 150 mg tablet 150 mg PO HS 05/16/22 02/20/24 Unknown potassium chloride 10 mEq 10 meq PO TID 05/16/22 02/20/24 Unknown tablet,extended release(part/cryst) vitamin K2 100 mcg capsule 100 mcg PO DAILY 05/19/22 02/20/24 Unknown furosemide 20 mg tablet 20 mg PO DAILY 02/20/24 02/20/24 Unknown metoclopramide HCl 10 mg tablet 10 mg PO TID 02/20/24 02/20/24 Unknown metoprolol succinate 100 mg 50 mg PO BID 02/20/24 02/20/24 Unknown tablet,extended release 24 hr Active Medications Generic Name Dose Route Start Last Admin Trade Name Jonny PRAdriana Reason Stop Dose Admin Apixaban 5 mg 02/20/24 12:45 02/20/24 14:06 Apixaban 5 Mg Tablet PO 03/21/24 12:44 5 mg AMHS LAWANDA Administration Diltiazem HCl 300 mg 02/20/24 12:45 02/20/24 14:06 Diltiazem Hcl 300 Mg Capcr PO 03/21/24 12:44 300 mg DAILY LAWANDA Administration Metoclopramide HCl 10 mg 02/20/24 14:45 02/20/24 16:17 Metoclopramide Hcl 10 Mg Tablet PO 03/21/24 14:44 10 mg TID LAWANDA Administration Potassium Chloride 10 meq 02/20/24 14:45 02/20/24 16:17 Potassium Chloride 10 Meq Tabcr PO 03/21/24 14:44 10 meq TID LAWANDA Administration Prednisone 5 mg 02/20/24 12:45 02/20/24 14:06 Prednisone 5 Mg Tab PO 03/21/24 12:44 5 mg DAILY LAWANDA Administration
[2024-02-20] MEDS: METOPROLOL SUCC 50MG EXT REL TAB PO SCH (21:07)
[2024-02-20] MEDS: LOSARTAN POTASSIUM 50 MG TAB PO SCH (21:07)
[2024-02-21 07:38] LABS: Hematocrit (blood only) 42.7 % (42.0-52.0); Hemoglobin 14.3 g/dl (14.0-18.0); Mean Corpuscular Hemoglobin 28.9 pg (25.0-34.0); Mean Corpuscular Hgb Conc 33.5 g/dL (32.0-36.0); Mean Corpuscular Volume 86.3 fL (80.0-100.0); Mean Platelet Volume 11.6 fL (9.4-12.4); Platelet Count 265 K/uL (130-400); RDW Coefficient of Variation 13.9 % (11.5-14.5); RDW Standard Deviation 44.3 fL (36.4-46.3); Red Blood Count 4.95 M/uL (4.70-6.10)
[2024-02-21 08:03] LABS: BUN Creatinine Ratio 24.1 (10-20); Calcium 9.2 mg/dl (8.6-10.3); Creatinine Clr Calc Pharmacy 73.1 ml/min; Potassium 3.5 mmol/L (3.5-5.1)
[2024-02-21] MEDS: CHOLECALCIFEROL 125 MCG (5,000 UNITS) TAB PO SCH (09:05)
[2024-02-21] MEDS: CARBIDOPA/LEVODOPA 25/100MG TAB PO SCH (09:05)
[2024-02-21] MEDS: FERROUS SULFATE 325 MG TAB PO SCH (09:06)
[2024-02-21] MEDS: FUROSEMIDE 20 MG TAB PO SCH (09:06)
--- NOTE | 2024-02-21 12:40 | Hospitalist Progress Note ---
Date of Service February 21, 2024 Assessment & Plan (1) Progressive focal motor weakness: Plan Mr. Oneal is an 83 yo male who has a significant past medical history of SVT, atrial and ventricular ectopy, history of multiple segmental PE on Eliquis therapy, PMR on chronic prednisone, T2DM, hyperlipidemia, vertebral artery occlusion, male hypogonadism and iron deficiency anemia who presented to ED 02/19 for progressive weakness. Patient states that as of 01/12, he has felt weak--that he just "cant do things" and its not a "motivation issue." His proximal muscle groups are in tact. He does have a noted slight resting tremor. Further conversation reveals that he has struggle with ADLs for years, but its more pronounced since January. He is without localizing symptoms Telemetry revealed sinus with PACs overnight and converted to a fib in am. Patient with recent hospitalization for RVR and currently trying to reduced dosing given his weakness concerns, however, worried about suboptimal control potentially given frequent ventricular/atrial ectopy. #Progressive weakness #Parkinsonism Recent medication changes - patient discontinued co-Q10/other vitamins, added Reglan early December, increase metoprolol dose early January [from 50 mg daily to 100 mg twice daily, now has been weaning down under guidance of Dr. Campuzano, currently at 50 mg twice daily and has Zio patch monitor]. prior myasthenia gravis eval negative in 2020. symptoms reported chronic fatigue/loss of smell and taste sensation since winter 2018, concerned for "long covid" Random cortisol at presentation is 10.29 (wnl). Biofire is negative, ESR 31 (similar compared to prior), CRP 1.31, CPK 26 B12 855 folate 11.88 lyme negative Admitting CXR and CT head with no acute finding. MRI c spine to be performed Friday Neurology consulted: -question of parkinsonian like symptoms, with perhaps PMR/depression playing role -patient declined any antidepressant as he states his "depression will resolve when these symptoms resolve" -Trial Sinemet 25/100, 1/2 tablet TID -Copper and vitamin e pending (reference lab) -MRI c spine ordered, to be done Friday PT/OT, patient agreeable to rehab if recommended #Paroxysmal atrial fibrillation #SVT #Atrial/Ventricular ectopy PACS and intermittent a fib will discontinue hydro technician Zio patch complete on 02/22 Continue metoprolol 50mg BID Consult Cardiology, patient back in a fib and working to decrease BB at this time given "weakness" Continue Diltazem 300mg daily Continue eliquis #HFpEF euvolemic, echo 01/12/2024 reviewed from [facility] EF 60-65% continue losartan (home irbesartan) and furosemide #PMR continue 5mg daily #DMII controlled on metformin, A1C 6.2 02/03 Other chronic medical conditions: HTN, HLD, A-fib, PMR -- continue with/resume home meds as when able. DVT prophylaxis: Patient on Eliquis Full code Admission and Anticipated Discharge Date Admission Date: February 20, 2024 Subjective NAEO Reports feeling weak, but able to hold arms up in air Seeming able to help self eat breakfast Cannot localize symptoms But states "mood is better" Agreeable for sinemet trial and perhaps rehab if recommended Physical Exam Constitutional: WD/WN, vitals as above Respiratory: normal respiratory effort, lungs clear to auscultation Cardiovascular: irreguarly irregular Neurologic: slight resting tremor Results & Data Results & Data Vital Signs (Past 12 Hours) Vital Signs Temp Pulse Pulse Resp BP Pulse Ox O2 Del Method 02/21/24 11:43 36.7 C 70 20 137/69 93 Room Air 02/21/24 08:00 70 02/21/24 07:34 36.6 C 66 20 149/72 H 95 Room Air 02/21/24 03:51 36.4 C L 71 18 126/71 97 Room Air 02/21/24 01:20 74 Laboratory Results Home Medications Medication Instructions Recorded Confirmed Last Taken atorvastatin 20 mg tablet 20 mg PO QAM 08/08/18 02/20/24 07/30/21 calcium 600 mg (as 1 cap PO 3XWK 05/03/19 02/20/24 07/31/21 carbonate)-vitamin D3 5 mcg (200 unit) capsule (Calcium 600 + D(3)) azelastine 205.5 mcg (0.15 %) 1 spray intranasal HS PRN Other 05/26/21 02/20/24 07/30/21 nasal spray ferrous sulfate 325 mg (65 mg 325 mg PO UD 05/26/21 02/20/24 07/30/21 iron) tablet (iron) prednisone 10 mg tablet 5 mg PO DAILY 05/26/21 02/20/2422 06:00 apixaban 5 mg tablet (Eliquis) 5 mg PO AMHS 07/31/21 02/20/24 07/31/21 metformin 500 mg tablet,extended 500 mg PO DAILYBB 07/31/21 02/20/24 07/31/21 release 24 hr cholecalciferol (vitamin D3) 125 125 mcg PO DAILY 05/16/22 02/20/24 Unknown mcg (5,000 unit) tablet (Vitamin D3) diltiazem HCl 300 mg 300 mg PO DAILY 05/16/22 02/20/24 Unknown capsule,extended release 24 hr (Cardizem CD) irbesartan 150 mg tablet 150 mg PO HS 05/16/22 02/20/24 Unknown potassium chloride 10 mEq 10 meq PO TID 05/16/22 02/20/24 Unknown tablet,extended release(part/cryst) vitamin K2 100 mcg capsule 100 mcg PO DAILY 05/19/22 02/20/24 Unknown furosemide 20 mg tablet 20 mg PO DAILY 02/20/24 02/20/24 Unknown metoclopramide HCl 10 mg tablet 10 mg PO TID 02/20/24 02/20/24 Unknown metoprolol succinate 100 mg 50 mg PO BID 02/20/24 02/20/24 Unknown tablet,extended release 24 hr Active Medications Generic Name Dose Route Start Last Admin Trade Name Jonny PRN Reason Stop Dose Admin Apixaban 5 mg 02/20/24 12:45 02/21/24 09:04 Apixaban 5 Mg Tablet PO 03/21/24 12:44 5 mg AMHS LAWANDA Administration Carbidopa/Levodopa 0.5 tab 02/21/24 09:00 02/21/24 09:05 Carbidopa/Levodopa 25/100mg Tab PO 03/22/24 08:59 0.5 tab TID LAWANDA Administration Diltiazem HCl 300 mg 02/20/24 12:45 02/21/24 09:06 Diltiazem Hcl 300 Mg Capcr PO 03/21/24 12:44 300 mg DAILY LAWANDA Administration Ferrous Sulfate 325 mg 02/21/24 09:00 02/21/24 09:06 Ferrous Sulfate 325 Mg Tab PO 03/22/24 08:59 325 mg DAILY LAWANDA Administration Furosemide 20 mg 02/21/24 09:00 02/21/24 09:06 Furosemide 20 Mg Tab PO 03/22/24 08:59 20 mg DAILY LAWANDA Administration Losartan Potassium 50 mg 02/20/24 21:00 02/20/24 21:07 Losartan Potassium 50 Mg Tab PO 03/21/24 20:59 50 mg HS LAWANDA Administration Metoclopramide HCl 10 mg 02/20/24 14:45 02/20/24 21:08 Metoclopramide Hcl 10 Mg Tablet PO 03/21/24 14:44 10 mg TID LAWANDA Administration Metoprolol Succinate 50 mg 02/20/24 21:00 02/21/24 09:07 Metoprolol Succ 50mg Ext Rel Tab PO 03/21/24 20:59 50 mg BID LAWANDA Administration Potassium Chloride 10 meq 02/20/24 14:45 02/21/24 09:10 Potassium Chloride 10 Meq Tabcr PO 03/21/24 14:44 10 meq TID LAWANDA Administration Prednisone 5 mg 02/20/24 12:45 02/21/24 11:49 Prednisone 5 Mg Tab PO 03/21/24 12:44 5 mg DAILY LAWANDA Administration Vitamin D 125 mcg 02/21/24 09:00 02/21/24 09:05 Cholecalciferol 125 Mcg (5,000 Units) Tab PO 03/22/24 08:59 125 mcg DAILY LAWANDA Administration Medications Administered Home Medications Medication Instructions Recorded Confirmed Last Taken atorvastatin 20 mg tablet 20 mg PO QAM 08/08/18 02/20/24 07/30/21 calcium 600 mg (as 1 cap PO 3XWK 05/03/19 02/20/24 07/31/21 carbonate)-vitamin D3 5 mcg (200 unit) capsule (Calcium 600 + D(3)) azelastine 205.5 mcg (0.15 %) 1 spray intranasal HS PRN Other 05/26/21 02/20/24 07/30/21 nasal spray ferrous sulfate 325 mg (65 mg 325 mg PO UD 05/26/21 02/20/24 07/30/21 iron) tablet (iron) prednisone 10 mg tablet 5 mg PO DAILY 05/26/21 02/20/24 07/31/21 06:00 apixaban 5 mg tablet (Eliquis) 5 mg PO AMHS 07/31/21 02/20/24 07/31/21 metformin 500 mg tablet,extended 500 mg PO DAILYBB 07/31/21 02/20/24 07/31/21 release 24 hr cholecalciferol (vitamin D3) 125 125 mcg PO DAILY 05/16/22 02/20/24 Unknown mcg (5,000 unit) tablet (Vitamin D3) diltiazem HCl 300 mg 300 mg PO DAILY 05/16/22 02/20/24 Unknown capsule,extended release 24 hr (Cardizem CD) irbesartan 150 mg tablet 150 mg PO HS 05/16/22 02/20/24 Unknown potassium chloride 10 mEq 10 meq PO TID 05/16/22 02/20/24 Unknown tablet,extended release(part/cryst) vitamin K2 100 mcg capsule 100 mcg PO DAILY 05/19/22 02/20/24 Unknown furosemide 20 mg tablet 20 mg PO DAILY 02/20/24 02/20/24 Unknown metoclopramide HCl 10 mg tablet 10 mg PO TID 02/20/24 02/20/24 Unknown metoprolol succinate 100 mg 50 mg PO BID 02/20/24 02/20/24 Unknown tablet,extended release 24 hr Active Medications Generic Name Dose Route Start Last Admin Trade Name Jonny PRN Reason Stop Dose Admin Apixaban 5 mg 02/20/24 12:45 02/21/24 09:04 Apixaban 5 Mg Tablet PO 03/21/24 12:44 5 mg AMHS LAWANDA Administration Carbidopa/Levodopa 0.5 tab 02/21/24 09:00 02/21/24 09:05 Carbidopa/Levodopa 25/100mg Tab PO 03/22/24 08:59 0.5 tab TID LAWANDA Administration Diltiazem HCl 300 mg 02/20/24 12:45 02/21/24 09:06 Diltiazem Hcl 300 Mg Capcr PO 03/21/24 12:44 300 mg DAILY LAWANDA Administration Ferrous Sulfate 325 mg 02/21/24 09:00 02/21/24 09:06 Ferrous Sulfate 325 Mg Tab PO 03/22/24 08:59 325 mg DAILY LAWANDA Administration Furosemide 20 mg 02/21/24 09:00 02/21/24 09:06 Furosemide 20 Mg Tab PO 03/22/24 08:59 20 mg DAILY LAWANDA Administration Losartan Potassium 50 mg 02/20/24 21:00 02/20/24 21:07 Losartan Potassium 50 Mg Tab PO 03/21/24 20:59 50 mg HS LAWANDA Administration Metoclopramide HCl 10 mg 02/20/24 14:45 02/20/24 21:08 Metoclopramide Hcl 10 Mg Tablet PO 03/21/24 14:44 10 mg TID LAWANDA Administration Metoprolol Succinate 50 mg 02/20/24 21:00 02/21/24 09:07 Metoprolol Succ 50mg Ext Rel Tab PO 03/21/24 20:59 50 mg BID LAWANDA Administration Potassium Chloride 10 meq 02/20/24 14:45 02/21/24 09:10 Potassium Chloride 10 Meq Tabcr PO 03/21/24 14:44 10 meq TID LAWANDA Administration Prednisone 5 mg 02/20/24 12:45 02/21/24 11:49 Prednisone 5 Mg Tab PO 03/21/24 12:44 5 mg DAILY LAWANDA Administration Vitamin D 125 mcg 02/21/24 09:00 02/21/24 09:05 Cholecalciferol 125 Mcg (5,000 Units) Tab PO 03/22/24 08:59 125 mcg DAILY LAWANDA Administration
--- NOTE | 2024-02-21 14:35 | Cardiology Consultation ---
Date of Consultation February 21, 2024 Assessment & Plan (1) Premature atrial contractions: (2) Paroxysmal atrial fibrillation: (3) Weakness: Plan Assessment: 83 year old male with with recent history of P. A-fib, admitted for generalized weakness. Notation of sinus arrhythmia and increased PAC's. Cardiology requested for evaluation/recommendations. Plan: 1. Premature Atrial contractions 2. Paroxysmal Atrial fibrillation -Patient with known history of P. A-fib. Recently seen by EP outpatient with further medication titration due to increased weakness. Currently has a ZIO monitor in place to assess A-fib burden and for other arrhythmia/ectopy. -Remains asymptomatic and euvolemic -Chronically anticoagulated with Eliquis. -Continue Diltiazem 300mg QD -Continue Toprol xl 50mg BID at this time. -Continue to monitor on Telemetry. If patient would convert to A-fib, will likely need to increase his beta serenity dosing. -He is aware to maintain OP follow up with Dr. Campuzano as planned for further plan of care pending ZIO results and medication titrations. 3. weakness -Chronic with progressive worsening over past several months. -Neuro exam demonstrates no unilateral weakness, and it appears to be worse in the upper extremities. -Neurology on board. Continued management per neuro and primary team. Case has been discussed with Dr. Dixon. Further recommendations regarding plan of care as per his assessment. I spent a total of 40 minutes on the date of service in preparation, delivery, documentation of the care provided to the patient excluding any time spent in the performance of separately billed services. KEYONA Love [facility] Supervising Physician Co-Signing Physician Notes I have personally performed a history and physical examination on the patient. I have reviewed the advance practitioner's documentation, and I agree with, and take responsibility for the plan of care. 83-year-old male admitted with diffuse weakness. Cardiology consultation requested due to history of paroxysmal atrial fibrillation and evidence of premature atrial complexes on telemetry. Patient essentially asymptomatic from a cardiovascular perspective. Continue diltiazem, Toprol-XL, and Eliquis as ordered. Supplement electrolytes as indicated. Continue telemetry monitoring during hospitalization. Return ZIO for analysis after 14 days. All questions answered to patient's satisfaction. Further evaluation of weakness as per neurology. I spent a total of 30 minutes on the date of service in preparation, delivery, and documentation of the care provided to this patient, excluding any time spent in the performance of separately billed services. Theo Dunne DO, [facility] History of Present Illness Reason for Consultation: Frequent ectopy, converted a fib, follows misty Requesting Physician: Chilo hospitalist Attending Physician: Amparo Clayton MD History of Present Illness HPI: 83 year old male significant for SVT, HTN, HLD, male hypogonadism, T2DM, A- fib, multiple subsegmental PE on Eliquis, Malignant neoplasm of splenic flexure, PMR, YAMILE, SNHL bilateral prior paraesophageal hernia that presented to the ER with a one month complaint of progressive weakness. he reports that he is noting more loss of strength in the upper extremities that in the lower extremities. Describes it as an inability to carry out ADLS because he is too weak. Also noting a tremor, he is being seen by Neurology as well. Patient denies any chest pain, pressure, palpitations, shortness of breath, PND, pre-syncope, syncope or edema. Of note, patient was recently seen in our office by Dr. Campuzano for hospital follow up after a bout of A-fib at [facility]. He was on a high dose of diltiazem 300mg and Toprol 50mg. His Metoprolol was increased to 100mg BID, but due to intolerance, his PCP had decreased it to 75mg BID on the 05 of February. Per review of Dr. Campuzano's note on 02/09/2024, there was discussion about further A-fib treatments including continued rate vs rhytm control with DCCV vs ablation. He was placed on a ZIO patch which remains in place to assess ventricular rates and AF burden. While on the monitor, he is to take metoprolol 75mg BID then for the second week he is to decrease the metoprolol to 50mg BID EKG on 02/20/24 SR with PAC, possible inferior infarct, ST&T wave abnormality, consider anterior ischemia. T wave inversion on lead III. Allergies Allergy/AdvReac Type Severity Reaction Status Date / Time levothyroxine Allergy Intermediate HIVES,LIPS Verified 05/19/22 00:20 SWELLING hydrocodone Allergy Unknown Unknown Verified 05/19/22 00:20 amoxicillin [From Augmentin] AdvReac Severe Diarrhea Verified 05/19/22 00:20 clavulanic acid AdvReac Severe Diarrhea Verified 05/19/22 00:20 [From Augmentin] codeine AdvReac Intermediate "I GOT Verified 05/19/22 00:20 REALLY SICK" metformin AdvReac Intermediate GI SYMPTOMS Verified 05/19/22 00:22 Home Medications Medication Instructions Recorded Confirmed Type atorvastatin 20 mg tablet 20 mg PO QAM 08/08/18 02/20/24 History calcium 600 mg (as 1 cap PO 3XWK 05/03/19 02/20/24 History carbonate)-vitamin D3 5 mcg (200 unit) capsule (Calcium 600 + D(3)) azelastine 205.5 mcg (0.15 %) 1 spray intranasal HS PRN Other 05/26/21 02/20/24 History nasal spray ferrous sulfate 325 mg (65 mg 325 mg PO UD 05/26/21 02/20/24 History iron) tablet (iron) prednisone 10 mg tablet 5 mg PO DAILY 05/26/21 02/20/24 History apixaban 5 mg tablet (Eliquis) 5 mg PO AMHS 07/31/21 02/20/24 History metformin 500 mg tablet,extended 500 mg PO DAILYBB 07/31/21 02/20/24 History release 24 hr cholecalciferol (vitamin D3) 125 125 mcg PO DAILY 05/16/22 02/20/24 History mcg (5,000 unit) tablet (Vitamin D3) diltiazem HCl 300 mg 300 mg PO DAILY 05/16/22 02/20/24 History capsule,extended release 24 hr (Cardizem CD) irbesartan 150 mg tablet 150 mg PO HS 05/16/22 02/20/24 History potassium chloride 10 mEq 10 meq PO TID 05/16/22 02/20/24 History tablet,extended release(part/cryst) vitamin K2 100 mcg capsule 100 mcg PO DAILY 05/19/22 02/20/24 History furosemide 20 mg tablet 20 mg PO DAILY 02/20/24 02/20/24 History metoclopramide HCl 10 mg tablet 10 mg PO TID 02/20/24 02/20/24 History metoprolol succinate 100 mg 50 mg PO BID 02/20/24 02/20/24 History tablet,extended release 24 hr Patient History Medical History DVT (deep venous thrombosis) LEFT LOWER LEG 2018-AFTER STOPPED TAKING ASPIRIN FOR 6 [id number] SINCE NAD NO ISSUES Bronchitis 02/2019-TREATED Arrhythmia Osteoarthritis Difficulty swallowing HX-RESOLVED PER PT Hearing deficit Surgical History History of bilateral cataract extraction History of colonoscopy with polypectomy History of esophagogastroduodenoscopy (EGD) History of tooth extraction Family History Mother Cancer Melanoma Father AAA (abdominal aortic aneurysm) Parkinson disease Other No family history of adverse response to anesthesia Social History Smoking Status: Former smoker Tobacco Type: Cigarettes Second Hand Exposure: No; Do You Dip or Chew Tobacco: No; Hx Alcohol Use: No Hx Substance Use: No Preferred Language: Danish Communication Ability: Effective Folding Machine Tender Required: No Beliefs That Will Affect Care: None marital status: Current Living Situation: Spouse How many Children do You have: 0 Feels Safe at Home: Yes Safety Concerns: Feels Safe At This Time Assistive Devices: None Review of Systems Review of Systems: All systems reviewed & are unremarkable except as noted in HPI & below Physical Exam Constitutional: well developed, well nourished and + overweight; no acute distress Neck: normal visual inspection and trachea midline Respiratory: normal respiratory effort; no respiratory distress, no labored breathing and no cough Auscultation: lungs clear to auscultation bilaterally Cardiovascular: Rate/Rhythm: regular rate and regular rhythm (frequent PAC's, occasional PVC's, sinus arrhythmia ) Heart Sounds: normal S1 and normal S2 Vessels: no JVD Extremities: no edema Skin: no rashes, warm and dry Psychiatric: A+Ox3, euthymic affect Results & Data Vital Signs (Past 12 Hours) Vital Signs Temp Pulse Pulse Resp BP Pulse Ox O2 Del Method 02/21/24 11:43 36.7 C 70 20 137/69 93 Room Air 02/21/24 08:00 70 02/21/24 07:34 36.6 C 66 20 149/72 H 95 Room Air 02/21/24 03:51 36.4 C L 71 18 126/71 97 Room Air Laboratory Results CBC 02/21/24 Range/Units 06:52 WBC 11.40 H (4.8-10.8) K/ul RBC 4.95 (4.70-6.10) M/uL Hgb 14.3 (14.0-18.0) g/dl Hct 42.7 (42.0-52.0) % Plt Count 265 (130-400) K/uL Comprehensive Metabolic Panel 02/21/24 Range/Units 06:52 Sodium 143 (136-145) mmol/L Potassium 3.5 (3.5-5.1) mmol/L Chloride 105 (98-107) mmol/L Carbon Dioxide 31 (21-32) mmol/L BUN 19 (6-23) mg/dl Creatinine 0.79 (0.6-1.4) mg/dl Glucose 121 H (70-99(Fasting)) mg/dl Calcium 9.2 (8.6-10.3) mg/dl Intake and Output 02/21/24 02/21/24 02/21/24 06:59 14:59 22:59 Intake Total 200 / 200 Balance 200 / 200 Intake: Oral 200 / 200 Other: # Unmeasured Voids 1 Weight 83.6 kg
[2024-02-22 06:34] LABS: Hematocrit (blood only) 40.4 % (42.0-52.0); Hemoglobin 13.5 g/dl (14.0-18.0); Mean Corpuscular Hgb Conc 33.4 g/dL (32.0-36.0); Mean Corpuscular Volume 86.7 fL (80.0-100.0); Mean Platelet Volume 11.2 fL (9.4-12.4); Platelet Count 253 K/uL (130-400); RDW Coefficient of Variation 13.9 % (11.5-14.5); RDW Standard Deviation 44.4 fL (36.4-46.3); Red Blood Count 4.66 M/uL (4.70-6.10); White Blood Count 10.89 K/ul (4.8-10.8)
[2024-02-22 06:56] LABS: BUN Creatinine Ratio 24.4 (10-20); Calcium 8.8 mg/dl (8.6-10.3); Creatinine Clr Calc Pharmacy 74.2 ml/min; Magnesium 2.1 mg/dl (1.7-2.4); Phosphorus 2.8 mg/dl (2.5-4.9); Potassium 3.7 mmol/L (3.5-5.1)
--- NOTE | 2024-02-22 07:01 | Hospitalist Progress Note ---
Date of Service February 22, 2024 Assessment & Plan (1) Progressive focal motor weakness: Plan Mr. Oneal is an 83 yo male who has a significant past medical history of SVT, atrial and ventricular ectopy, history of multiple segmental PE on Eliquis therapy, PMR on chronic prednisone, T2DM, hyperlipidemia, vertebral artery occlusion, male hypogonadism and iron deficiency anemia who presented to ED 02/19 for progressive weakness. Patient states that as of 01/12, he has felt weak--that he just "cant do things" and its not a "motivation issue." His proximal muscle groups are in tact. He does have a noted slight resting tremor. Further conversation reveals that he has struggle with ADLs for years, but its more pronounced since January. He is without localizing symptoms Telemetry revealed sinus with PACs overnight and converted to a fib in am. Patient with recent hospitalization for RVR and currently trying to reduced dosing given his weakness concerns, however, worried about suboptimal control potentially given frequent ventricular/atrial ectopy. Evaluated by Cardiology who feels this is stable and noncontributory at this time. Patient still with sense of weakness, though able to eat and walk to bathroom, he "feels" like he cannot. He doesnt have any joint or muscle pains. Being considered for biologics with Rheum. #Progressive weakness #Parkinsonism Recent medication changes - patient discontinued co-Q10/other vitamins, added Reglan early December, increase metoprolol dose early January [from 50 mg daily to 100 mg twice daily, now has been weaning down under guidance of Dr. Campuzano, currently at 50 mg twice daily and has Zio patch monitor]. prior myasthenia gravis eval negative in 2020. symptoms reported chronic fatigue/loss of smell and taste sensation since winter 2018, concerned for "long covid" Random cortisol at presentation is 10.29 (wnl). Biofire is negative, ESR 31 (similar compared to prior), CRP 1.31, CPK 26 B12 855 folate 11.88 lyme negative Admitting CXR and CT head with no acute finding. MRI c spine to be performed Friday Neurology consulted: -question of parkinsonian like symptoms, with perhaps PMR/depression playing role -patient declined any antidepressant as he states his "depression will resolve when these symptoms resolve" -Trial Sinemet 25/100, 1/2 tablet TID -Copper and vitamin e pending (reference lab) -MRI c spine ordered, to be done Friday; PT recommends to return home PT/OT, patient agreeable to rehab if recommended #PMR will discuss with rheumatology tomorrow if likely related to PMR symptoms and potentially increase continue 5 mg daily, consider 10mg tomorrow Plan to reach out to Dr. Izquierdo in am #Paroxysmal atrial fibrillation #SVT #Atrial/Ventricular ectopy PACS and intermittent a fib will discontinue repairer and checker Zio patch complete on 02/22 Continue metoprolol 50mg BID Consult Cardiology, patient back in a fib and working to decrease BB at this time given "weakness" Continue Diltazem 300mg daily Continue eliquis Cards standpoint: stable, no acute changes, continue telemetry #HFpEF euvolemic, echo 01/12/2024 reviewed from EF 60-65% continue losartan (home irbesartan) and furosemide #PMR continue 5mg daily #DMII controlled on metformin, A1C 6.2 02/03 Other chronic medical conditions: HTN, HLD, A-fib, PMR -- continue with/resume home meds as when able. DVT prophylaxis: Patient on Eliquis Full code Admission and Anticipated Discharge Date Admission Date: February 20, 2024 Subjective Reports sensation of weakness Started on sinemet--maybe mild improvement in tremors but nothing else notable Denies any new symptoms--reports sensation of weakness limiting his ability to try to do things Physical Exam Constitutional: WD/WN, vitals as above Respiratory: normal respiratory effort, lungs clear to auscultation Cardiovascular: RRR, no murmur, no edema Neurologic: PERRL, EOMI, accommodation nl, no face palsy, no dysarthria Results & Data Results & Data Vital Signs (Past 12 Hours) Vital Signs Temp Pulse Pulse Resp BP Pulse Ox O2 Del Method 02/22/24 05:08 36.6 C 70 18 147/71 H 95 Room Air 02/22/24 02:48 36.5 C 69 18 155/75 H 91 Room Air 02/21/24 23:30 81 02/21/24 23:00 36.7 C 68 18 138/68 95 Room Air Laboratory Results Short CBC 02/21/24 02/22/24 Range/Units 06:52 05:56 WBC 11.40 H 10.89 H (4.8-10.8) K/ul Hgb 14.3 13.5 L (14.0-18.0) g/dl Hct 42.7 40.4 L (42.0-52.0) % Plt Count 265 253 (130-400) K/uL [facility] 02/21/24 02/22/24 06:52 05:56 Sodium 143 142 Potassium 3.5 3.7 Chloride 105 106 Carbon Dioxide 31 29 BUN 19 19 Creatinine 0.79 0.78 Glucose 121 H 114 H Calcium 9.2 8.8 Medications Administered Home Medications Medication Instructions Recorded Confirmed Last Taken atorvastatin 20 mg tablet 20 mg PO QAM 08/08/18 02/20/24 07/30/21 calcium 600 mg (as 1 cap PO 3XWK 05/03/19 02/20/24 07/31/21 carbonate)-vitamin D3 5 mcg (200 unit) capsule (Calcium 600 + D(3)) azelastine 205.5 mcg (0.15 %) 1 spray intranasal HS PRN Other 05/26/21 02/20/24 07/30/21 nasal spray ferrous sulfate 325 mg (65 mg 325 mg PO UD 05/26/21 02/20/24 07/30/21 iron) tablet (iron) prednisone 10 mg tablet 5 mg PO DAILY 05/26/21 02/20/24 07/31/21 06:00 apixaban 5 mg tablet (Eliquis) 5 mg PO AMHS 07/31/21 02/20/24 07/31/21 metformin 500 mg tablet,extended 500 mg PO DAILYBB 07/31/21 02/20/24 07/31/21 release 24 hr cholecalciferol (vitamin D3) 125 125 mcg PO DAILY 05/16/22 02/20/24 Unknown mcg (5,000 unit) tablet (Vitamin D3) diltiazem HCl 300 mg 300 mg PO DAILY 05/16/22 02/20/24 Unknown capsule,extended release 24 hr (Cardizem CD) irbesartan 150 mg tablet 150 mg PO HS 05/16/22 02/20/24 Unknown potassium chloride 10 mEq 10 meq PO TID 05/16/22 02/20/24 Unknown tablet,extended release(part/cryst) vitamin K2 100 mcg capsule 100 mcg PO DAILY 05/19/22 02/20/24 Unknown furosemide 20 mg tablet 20 mg PO DAILY 02/20/24 02/20/24 Unknown metoclopramide HCl 10 mg tablet 10 mg PO TID 02/20/24 02/20/24 Unknown metoprolol succinate 100 mg 50 mg PO BID 02/20/24 02/20/24 Unknown tablet,extended release 24 hr Active Medications Generic Name Dose Route Start Last Admin Trade Name Jonny PRN Reason Stop Dose Admin Apixaban 5 mg 02/20/24 12:45 02/21/24 20:00 Apixaban 5 Mg Tablet PO 03/21/24 12:44 5 mg AMHS LAWANDA Administration Carbidopa/Levodopa 0.5 tab 02/21/24 09:00 02/21/24 20:00 Carbidopa/Levodopa 25/100mg Tab PO 03/22/24 08:59 0.5 tab TID LAWANDA Administration Diltiazem HCl 300 mg 02/20/24 12:45 02/21/24 09:06 Diltiazem Hcl 300 Mg Capcr PO 03/21/24 12:44 300 mg DAILY LAWANDA Administration Ferrous Sulfate 325 mg 02/21/24 09:00 02/21/24 09:06 Ferrous Sulfate 325 Mg Tab PO 03/22/24 08:59 325 mg DAILY LAWANDA Administration Furosemide 20 mg 02/21/24 09:00 02/21/24 09:06 Furosemide 20 Mg Tab PO 03/22/24 08:59 20 mg DAILY LAWANDA Administration Losartan Potassium 50 mg 02/20/24 21:00 02/21/24 20:00 Losartan Potassium 50 Mg Tab PO 03/21/24 20:59 50 mg HS LAWANDA Administration Metoclopramide HCl 10 mg 02/20/24 14:45 02/20/24 21:08 Metoclopramide Hcl 10 Mg Tablet PO 03/21/24 14:44 10 mg TID LAWANDA Administration Metoprolol Succinate 50 mg 02/20/24 21:00 02/21/24 20:01 Metoprolol Succ 50mg Ext Rel Tab PO 03/21/24 20:59 50 mg BID LAWANDA Administration Potassium Chloride 10 meq 02/20/24 14:45 02/21/24 20:01 Potassium Chloride 10 Meq Tabcr PO 03/21/24 14:44 10 meq TID LAWANDA Administration Prednisone 5 mg 02/20/24 12:45 02/21/24 11:49 Prednisone 5 Mg Tab PO 03/21/24 12:44 5 mg DAILY LAWANDA Administration Vitamin D 125 mcg 02/21/24 09:00 02/21/24 09:05 Cholecalciferol 125 Mcg (5,000 Units) Tab PO 03/22/24 08:59 125 mcg DAILY LAWANDA Administration
--- NOTE | 2024-02-22 20:22 | Communication Note ---
Date of Service: February 22, 2024 Reporting slight improvement in of the tremors, consider increasing to a full tablet 3 times daily on Friday Follow-up MRI of the brain and C-spine on Friday
[2024-02-23 07:51] VITALS: TEMP 98.1
[2024-02-23] MEDS: CALCIUM 600MG + VIT D 400 IU TAB PO SCH (07:56)
[2024-02-23] MEDS: predniSONE 10 MG TABLET PO SCH (08:03)
[2024-02-23 11:18] VITALS: BP 153/82; RESP 20; O2SAT 91
[2024-02-23] MEDS: GADOBUTROL 65ML VIAL IV ONE (12:04)
[2024-02-23] MEDS: CARBIDOPA/LEVODOPA 25/100MG TAB PO SCH (12:54)
--- NOTE | 2024-02-23 12:57 | Magnetic Resonance Report ---
MRI OF THE CERVICAL SPINE WITH AND WITHOUT CONTRAST CLINICAL HISTORY: Progressive upper extremity weakness. COMPARISON: CTA of the neck July 31, 2021. TECHNIQUE: Utilizing a 1.5 Bisi magnet and dedicated coil, multiplanar, multiecho imaging of the ce rvical spine was performed before and after intravenous administration of 8 of Gadavist. FINDINGS: Alignment of the cervical spine is anatomic. Vertebral body heights are maintained. No marrow edema o r marrow replacement is present. Cervical cord signal and caliber are normal. There is no intracanali cular mass, fluid collection or abnormal enhancement. Paravertebral soft tissues are unremarkable. Mi ld to moderate multilevel degenerative changes within the cervical spine are present. There is no sev ere central canal stenosis. C2-C3: The central canal is patent. Moderate bilateral neural foraminal stenosis is due to facet art hrosis and uncovertebral hypertrophy. C3-C4: There is moderate disc space narrowing. Mild posterior disc osteophyte complex results in mil d central canal stenosis. Minimal bilateral neural foraminal stenosis. C4-C5: Minimal posterior disc osteophyte complex effaces the ventral thecal sac. There is mild centr al canal stenosis. Neural foramen are patent. C5-C6: Disc space narrowing is noted with disc bulge. There is mild central canal stenosis. Moderate left and mild right neural foraminal stenosis is noted. C6-C7: Central canal is patent. Moderate left and mild right neural foraminal stenosis. C7-T1: Central canal and neural foramen are patent. IMPRESSION: 1. No acute process within the cervical spine. 2. Normal cervical cord signal and caliber. 3. Mild to moderate multilevel degenerative disc disease and facet arthrosis within the cervical spin e. ACT 112: Negative or not required by law. Electronically signed by: Doyle Sevilla M.D. 02/23/2024 12:55 PM
--- NOTE | 2024-02-23 12:57 | Magnetic Resonance Report ---
MR brain wo/w con HISTORY: 83 years-old Male with c spine today for weakness eval acute weakness COMPARISON: Brain MRI 07/31/2021, CT head neck 07/31/2021 TECHNIQUE: Multiplanar multisequence MRI brain was obtained with and without IV contrast FINDINGS: There are no foci of restricted diffusion to suggest acute infarct. No acute intracranial hemorrhage, midline shift or mass effect is present. Basal cisterns are patent. There are no extra axial collect ions. Moderate atrophy is noted. White matter T2 hyperintense foci suggests moderate small vessel dis ease, mildly progressed from prior. No intracranial masses are identified. No abnormal enhancement is seen. Loss of the flow-void for the distal cervical and intracranial portion of the right vertebral artery corresponds to chronic occlusion shown on the prior CTA. Calvarial signal is within normal hernandez its. IMPRESSION: 1. No acute intracranial abnormality. No acute or subacute infarct. 2. No abnormal enhancement. 3. Involutional changes with chronic microvascular ischemic disease. ACT 112: Negative or not required by law. The above report was generated using voice recognition software. It may contain grammatical, syntax o r spelling errors. Electronically signed by: Jacob Del Angel M.D. 02/23/2024 12:55 PM
[2024-02-23 14:51] VITALS: PULSE 72
--- NOTE | 2024-02-23 15:28 | Discharge Summary ---
Discharge Summary Date of Service February 23, 2024 Principal Dx & Hospital Course #1 = Principal Diagnosis (1) Progressive focal motor weakness: Plan Mr. Oneal is an 83 yo male who has a significant past medical history of SVT, at rial and ventricular ectopy, history of multiple segmental PE on Eliquis therapy, PMR on chronic prednisone, T2DM, hyperlipidemia, vertebral artery occlusion, male hypogonadism and iron deficiency anemia who presented to ED 02/19 for progressive weakness. Patient states that as of 01/12, he has felt weak--that he just "cant do things" and its not a "motivation issue." His proximal muscle groups are in tact. He does have a noted slight resting tremor. Further conversation reveals that he has struggle with ADLs for years, but its more pronounced since January. He is without localizing symptoms Telemetry revealed sinus with PACs overnight and converted to a fib in am. Patient with recent hospitalization for RVR and currently trying to reduced dosing given his weakness concerns, however, worried about suboptimal control potentially given frequent ventricular/atrial ectopy. Evaluated by Cardiology who feels this is stable and noncontributory at this time. Patient still with sense of weakness, though able to eat and walk to bathroom, he "feels" like he cannot. He doesnt have any joint or muscle pains. Being considered for biologics with Rheum. On day of discharge, patient underwent MRI which was unremarkable. He worked with PT who noted he was independent on all trials with bed mobility and ambulation. He continues to report things he "just cant do." He denied outpatient PT stating it wont help, but agreed to home health services. Patient remarked mild improvement with increase in prednisone and cannot remark on any improvement with sinemet yet, however noted mild improvement in tremors. Appointments with Rheum and Neurology coorindated upon dispo. #Progressive weakness #Parkinsonism Recent medication changes - patient discontinued co-Q10/other vitamins, added Reglan early December, increase metoprolol dose early January [from 50 mg daily to 100 mg twice daily, now has been weaning down under guidance of Dr. Campuzano, currently at 50 mg twice daily and has Zio patch monitor]. prior myasthenia gravis eval negative in 2020. symptoms reported chronic fatigue/loss of smell and taste sensation since winter 2018, concerned for "long covid" Random cortisol at presentation is 10.29 (wnl). Biofire is negative, ESR 31 (similar compared to prior), CRP 1.31, CPK 26 B12 855 folate 11.88 lyme negative Admitting CXR and CT head with no acute finding. MRI c spine to be performed Friday Neurology consulted: -question of parkinsonian like symptoms, with perhaps PMR/depression playing role -patient declined any antidepressant as he states his "depression will resolve when these symptoms resolve" -Trial Sinemet 25/100, increased to 1 tablet TID -Copper and vitamin e pending (reference lab) -MRI unremarkable -Home health, neuro, and rheum follow up #PMR will discuss with rheumatology tomorrow if likely related to PMR symptoms and potentially increase increased prednisone to 10mg daily, follow up with Dr Izquierdo #Paroxysmal atrial fibrillation #SVT #Atrial/Ventricular ectopy PACS and intermittent a fib 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 Zio patch complete on 02/22 Continue metoprolol 50mg BID Consult Cardiology, patient back in a fib and working to decrease BB at this time given "weakness" Continue Diltazem 300mg daily Continue eliquis Cards standpoint: stable, no acute changes, continue telemetry [place] completed instructed to follow return procedures #HFpEF euvolemic, echo 01/12/2024 reviewed from [facility] EF 60-65% continue losartan (home irbesartan) and furosemide #DMII controlled on metformin, A1C 6.2 02/03 Notes For Next Care Provider Medication Changes From Visit Sinemet 1 tablet TID Prednisone increased to 10mg daily Admission HPI Per Admitting Provider 83-year-old male with PMH of T2DM, HLD, male hypogonadism, allergic rhinitis, SVT, HTN, multiple subsegmental PE on Eliquis, A-fib on metoprolol, malignant neoplasm of splenic flexure, PMR on steroid, steroid-induced osteoporosis, SNHL bilateral, YAMILE, status post repair of paraesophageal hernia presented to the ED with complaint of progressive weakness since first week of January. Patient reports that he has been having " extreme weakness" since first week of January, has been slowly losing strength/energy more so in the upper extremity than in lower extremity. He is able to walk short distances but not able to cut his food or open water bottle which is affecting his ADLs. Patient feels that he is generally losing his motor control, he has not noticed decrease in sensation. Patient denies any flulike illness or viral gastroenteritis like illness in the last 2 to 3 months. Patient denies any shortness of breath. Patient reports progressive weakness over the last month, denies any increasing weakness of muscle within the same activity event [e.g., he does not get any weaker than he started with when eating a lunch]. Patient reports he has been dealing with loss of smell and taste [the sensation has come back little] and chronic fatigue since winter 2018 and believes that he might have gotten COVID-19 infection but he states that it is not documented/proven anywhere. Patient also reports that he was worked up in the line of myasthenia gravis in 2020 by neurologist which was deemed negative at the end of investigation per patient. In the last few months, after paraesophageal hernia repair Reglan was added at the beginning of December for difficulty swallowing, he has stopped his co-Q10 and other vitamin supplements after Sx, his metoprolol dose was increased from 50 mg daily to 100 mg twice a day towards the beginning of January [it has currently been weaned down to 50 mg twice a day, patient has Zio patch monitor, patient follows Dr. Campuzano]. Pt states he has been weaning off of his prednisone from 12.5 mg daily to 5 mg daily over the course of last 3 months. Patient denies any other medication changes. Patient denies headache/dizziness/sore throat/cough/chest pain/palpitation/nausea/vomiting/pain or burning while passing urine/diarrhea. Patient reports his usual bowel movement is somewhat constipation. Patient reports he occasionally has tremors when he is feeling very weak. Patient reports quitting smoking 1982, denies alcohol and recreational drug use. Full code as per my discussion w/ the pt and his at bedside. Medications reviewed with the patient and his at bedside. Plan of care discussed with the patient and his at bedside, they voiced understanding and were agreeable. Admission Exam Per Admitting Provider GENERAL: Alert and oriented x3. NAD, on RA. HEENT: No pallor, no icterus. Pupils equal, round and reactive to light. Oral mucosa moist. NECK: No JVD, no neck masses. HEART: S1 and S2 heard. Regular rate and rhythm. HR in 90s. No murmur, no gallop. RESPIRATORY SYSTEM: Normal AP diameter. No accessory muscle use. No wheezing, no crackles. ABDOMEN: Soft, bowel sounds present, nontender, no distention. CENTRAL NERVOUS SYSTEM: No facial droop. Speech is clear. Obeys simple commands. Moves extremities. power 5/5 UE and LE. EXTREMITIES: No edema, no erythema seen. Discharge Exam Constitutional WD/WN, vitals as above Respiratory normal respiratory effort, lungs clear to auscultation Cardiovascular RRR, no murmur, no edema Gastrointestinal (Abdomen) normal bowel sounds, soft, nontender, no hepatosplenomegaly Musculoskeletal no cyanosis or clubbing, extremities motor strength 5/5 Updated Medication List Medication Instructions Recorded Confirmed Type atorvastatin 20 mg tablet 20 mg PO QAM 08/08/18 02/20/24 History calcium 600 mg (as 1 cap PO 3XWK 05/03/19 02/20/24 History carbonate)-vitamin D3 5 mcg (200 unit) capsule (Calcium 600 + D(3)) azelastine 205.5 mcg (0.15 %) 1 spray intranasal HS PRN Other 05/26/21 02/20/24 History nasal spray ferrous sulfate 325 mg (65 mg 325 mg PO UD 05/26/21 02/20/24 History iron) tablet (iron) apixaban 5 mg tablet (Eliquis) 5 mg PO AMHS 07/31/21 02/20/24 History metformin 500 mg tablet,extended 500 mg PO DAILYBB 07/31/21 02/20/24 History release 24 hr cholecalciferol (vitamin D3) 125 125 mcg PO DAILY 05/16/22 02/20/24 History mcg (5,000 unit) tablet (Vitamin D3) diltiazem HCl 300 mg 300 mg PO DAILY 05/16/22 02/20/24 History capsule,extended release 24 hr (Cardizem CD) irbesartan 150 mg tablet 150 mg PO HS 05/16/22 02/20/24 History potassium chloride 10 mEq 10 meq PO TID 05/16/22 02/20/24 History tablet,extended release(part/cryst) vitamin K2 100 mcg capsule 100 mcg PO DAILY 05/19/22 02/20/24 History furosemide 20 mg tablet 20 mg PO DAILY 02/20/24 02/20/24 History metoclopramide HCl 10 mg tablet 10 mg PO TID 02/20/24 02/20/24 History metoprolol succinate 100 mg 50 mg PO BID 02/20/24 02/20/24 History tablet,extended release 24 hr carbidopa 25 mg-levodopa 100 mg 1 tab PO TID #90 tabs 02/23/24 Rx tablet (Sinemet) prednisone 10 mg tablet 10 mg PO DAILY #30 tabs 02/23/24 Rx Hospital Stay Data Consultations 02/20/24 11:09 ED Decision to Admit Stat 02/20/24 11:56 Consult Neurology Routine 02/21/24 12:56 Consult Cardiology Routine Diagnostic Imagining Performed 02/20/24 08:44 CT head/brain wo con Stat 02/23/24 09:25 MRI Brain [MR brain wo/w con] Routine 02/23/24 11:15 MR cervical spine wo/w con Routine Pending Results Patient Have Any Pending Studies at Discharge: No Discharge Instructions Given to Patient (Per Discharging Provider) You were admitted for the sensation of weakness with progressive symptoms. You were seen by neurology who noted questionable concerns for parkisonism -Start Sinemet 1 tablet three times a day (breakfast lunch and dinner) You were also increased on your steroid to 10mg daily with plans for you to follow closely with Rheumatology. Your MRI imaging was normal for your age. You were evaluated by PT/OT who recommends continued therapy. Home health services are being coordinated. Total Time Total Time Spent Total Time Spent (In Minutes): 45
--- NOTE | 2024-02-23 15:32 | Electrocardiogram Report ---
Test Reason : Blood Pressure : */* mmHG Vent. Rate : 77 BPM Atrial Rate : 77 BPM P-R Int : 162 ms QRS Dur : 70 ms QT Int : 394 ms P-R-T Axes : 65 25 -28 degrees QTcB Int : 445 ms Normal sinus rhythm Possible Inferior infarct (cited on or before 20-Feb-2024) Abnormal ECG When compared with ECG of 20-Feb-2024 08:58, Premature atrial complexes are no longer Present Confirmed by Robinson Farias [id number]) on 02/23/2024 3:31:39 PM Referred By: REFERRED SELF Confirmed By: Robinson Farias
== END 2024-02-23 15:25 | disposition home health service (06) | DRG 57 ==
LOC: ED 08:20 → 2N 11:57 → SUATTDRO 11:57 → 2N 14:19